=== PATIENT | male | born 1945 | race Caucasian/White ===

== ENCOUNTER 2016-10-28 10:17 | Emergency (ER) | payer OTHER, BC ==
[2016-10-28 10:24] VITALS: TEMP 98.5; BMI 30.7
[2016-10-28] MEDS ORDERED: ONDANSETRON 4 MG/2 ML VIAL IVPB ONE (11:22)
[2016-10-28] MEDS ORDERED: SODIUM CHLORIDE 500 ML IV STA (11:22)
[2016-10-28] MEDS ORDERED: ONDANSETRON 4 MG/2 ML VIAL ONE (11:44)
[2016-10-28 12:03] LABS: BASOPHIL 0.2 % (0-2.0); EOSINOPHIL 0.1 % (0-4.5); MCH 29.7 pg (25.7-33.7); MCHC 33.8 g/dl (32.0-35.9); MEAN CELL VOLUME 87.8 fl (80-96); MEAN PLT VOLUME 8.1 fl (7.5-11.1); NEUTROPHILS 95.2 % (42.8-82.8); PLATELET COUNT 161 K/MM3 (134-434); RDW 13.7 % (11.9-15.9); WHITE BLOOD COUNT 16.8 K/mm3 (4.0-10.0)
[2016-10-28 12:04] LABS: URINE APPEARANCE CLEAR; URINE BILIRUBIN NEGATIVE (NEGATIVE); URINE BLOOD NEGATIVE (NEGATIVE); URINE COLOR YELLOW; URINE GLUCOSE (UA) 3+ (NEGATIVE); URINE KETONE NEGATIVE (NEGATIVE); URINE LEUK ESTERASE NEGATIVE (NEGATIVE); URINE NITRITE NEGATIVE (NEGATIVE); URINE UROBILINOGEN NEGATIVE E.U./dl (0.2-1.0)
[2016-10-28 12:05] LABS: URINE PROTEIN 2+ (NEGATIVE)
[2016-10-28 12:08] LABS: URINE HYALINE CAST 4 /lpf; URINE MUCUS MANY; URINE RBC 3 /hpf (0-3); URINE WBC 5 /hpf (3-5)
--- NOTE | 2016-10-28 12:19 | PDOC ---
History of Present Illness <Talha Horan - Last Filed: 10/28/16 14:51> - General History Source: Patient Exam Limitations: No Limitations - History of Present Illness Initial Comments: 10/28/16 16:05 The patient is a 71 year old male with a significant past medical history of HTN and benign prostatic hyperplasia, who presents to the ER with several episodes of vomiting and diarrhea since yesterday. Patient states he ate [place] fish yesterday before he developed the symptoms. He reports his family ate the fish as well. Patient states he had 3-4 episodes of bilious vomiting, yellowish-green in color. He reports his stool is watery and brown in color. Patient states that he has pain in his right shoulder only when he vomits. He denies any shoulder pain in the past. On interview, patient reports feeling nausea. He states he sees a dye machine operator, Dr. Bush, for his hypokalemia. Patient states he uses CPAP while sleeping. Denies fever, chills, cough Denies sick contacts or recent travel Denies recent antibiotic use Denies melena, hematochezia Surgical Hx: Appendectomy PCP: Dr. Saavedra GI: Flaquita <Samanta Silva - Last Filed: 10/28/16 16:05> - General Chief Complaint: Vomiting/Diarrhea Stated Complaint: VOMITING, DIARRHEA Time Seen by Provider: 10/28/16 11:21 Past History - Past Medical History Anemia: No Asthma: No Cancer: No Cardiac Disorders: Yes (MVP) CVA: No COPD: No CHF: No Dementia: No Diabetes: No GI Disorders: Yes (DIVERTICUL;ITIS,DIVERTICULOSIS,HEMORRHOIDS) Disorders: No HTN: Yes Hypercholesterolemia: Yes Liver Disease: No Seizures: No Thyroid Disease: No - Surgical History Abdominal Surgery: No Appendectomy: Yes Cardiac Surgery: No Cholecystectomy: No Lung Surgery: No Neurologic Surgery: No Orthopedic Surgery: No - Psycho/Social/Smoking Cessation Hx Anxiety: No Suicidal Ideation: No Smoking History: Never smoked Have you smoked in the past 12 months: No Information on smoking cessation initiated: No Hx Alcohol Use: No Drug/Substance Use Hx: No Substance Use Type: None Hx Substance Use Treatment: No <Talha Horan - Last Filed: 10/28/16 14:51> <Samanta Silva - Last Filed: 10/28/16 16:05> - Past Medical History Allergies/Adverse Reactions: Allergies Allergy/AdvReac Type Severity Reaction Status Date / Time codeine [Codeine] Allergy Verified 10/28/16 10:24 Penicillins Allergy Verified 10/28/16 10:24 Home Medications: Ambulatory Orders Amlodipine Besylate [Norvasc -] 5 mg PO BID 12/20/12 Diltiazem [Cardizem -] 300 mg PO DAILY 12/20/12 Multivitamins [Multivit ([facility] Formulary)] 1 each PO DAILY 12/20/12 Potassium Chloride [K-Dur] 20 meq PO BID 12/20/12 Tamsulosin HCl 0.4 mg PO DAILY 12/20/12 Terazosin HCl 10 mg PO HS 12/20/12 Icosapent Ethyl [Vascepa] 0 gm PO DAILY 10/25/15 Ascorbate Calcium [Vitamin C] 500 mg PO DAILY 10/28/16 Aspirin [ASA -] 81 mg PO DAILY 10/28/16 Ondansetron HCl [Zofran] 4 mg PO QID PRN #24 tablet 10/28/16 Review of Systems - Review of Systems Able to Perform ROS?: Yes Comments:: 10/28/16 16:05 CONSTITUTIONAL: No reported: Fever, Chills, Diaphoresis, Generalized Weakness, Malaise, Loss of Appetite HEENT: No reported: Rhinorrhea, Nasal Congestion, Throat Pain, Throat Swelling, Difficulty Swallowing, Mouth Swelling, Ear Pain, Eye Pain, Visual Changes CARDIOVASCULAR: No reported: Chest Pain, Syncope, Palpitations, Irregular Heart Rate, Lightheadedness, Peripheral Edema RESPIRATORY: No reported: Cough, Shortness of Breath, SOB with Exertion, Orthopnea, Wheezing , Stridor, Hemoptysis GASTROINTESTINAL: Reported: Nausea, vomiting, diarrhea No reported: Abdominal pain, Abdominal Distension, Constipation, Melena, Hematochezia GENITOURINARY: No reported: Dysuria, Frequency, Urgency, Hesitancy, Flank Pain, Genital Pain MUSCULOSKELETAL: No reported: Myalgia, Arthralgia, Joint Swelling, Back pain, Neck Pain SKIN: No reported: Rash, Itching, Pallor HEMEATOLOGIC/IMMUNOLOGIC: No reported: Easy Bleeding, Easy Bruising, Lymphadenopathy, Frequent infections ENDOCRINE: No reported: Unexplained Weight Gain, Unexplained Weight Loss, Heat Intolerance , Cold Intolerance NEUROLOGIC: No reported: Headache, Focal Weakness, Paresthesias, Vertigo, Lightheadedness, Unsteady Gait, Seizure, Mental Status Changes, Incontinence PSYCHIATRIC: No reported: Anxiety, Depression <Uts,Samanta - Last Filed: 10/28/16 16:05> *Physical Exam - Vital Signs Last Vital Signs Temp Pulse Resp BP Pulse Ox 98.5 F 110 H 20 157/89 96 10/28/16 10:21 10/28/16 10:21 10/28/16 10:21 10/28/16 10:21 10/28/16 10:21 <Marline,Talha - Last Filed: 10/28/16 14:51> - Vital Signs Last Vital Signs Temp Pulse Resp BP Pulse Ox 98.5 F 104 H 17 161/89 96 10/28/16 10:21 10/28/16 14:41 10/28/16 14:41 10/28/16 14:41 10/28/16 14:41 - Physical Exam Comments: 10/28/16 16:05 GENERAL: The patient is awake, alert, and fully oriented, Nontoxic - in no acute distress. HEAD: Normocephalic, atraumatic. EYES: extraocular movements intact, sclera anicteric, conjunctiva clear. ENT: Normal voice, Moist mucous membranes. NECK: Normal range of motion, supple LUNGS: Breath sounds equal, clear to auscultation bilaterally. No wheezes, no rhonchi, no rales. HEART: Regular rate and rhythm, without murmur, rub or gallop. ABDOMEN: Distended. Soft, nontender, normoactive bowel sounds. No guarding, no rebound.No CVA tenderness EXTREMITIES: Normal range of motion, no edema. No clubbing or cyanosis. No cords, erythema, or tenderness. NEUROLOGICAL: No facial assymetry, Normal speech, PSYCH: Normal mood, normal affect. SKIN: Warm, Dry, normal turgor <Uts,Samanta - Last Filed: 10/28/16 16:05> Heart Score/ECG Review - ECG Impressions Comment:: 10/28/16 12:18 Twelve-lead EKG was performed and reviewed by me. There is normal sinus rhythm with a rate of 105 Right bundle-branch block No ST changes suggestive of acute ischemia No recent EKGs for comparison <MarlineTalha - Last Filed: 10/28/16 14:51> ED Treatment Course - LABORATORY CBC & Chemistry Diagram: 10/28/16 11:12 10/28/16 11:12 - ADDITIONAL ORDERS Additional order review: Laboratory Results 10/28/16 11:12 Urine Color Yellow Urine Appearance Clear Urine pH 6.0 Ur Specific [place] 1.022 Urine Protein 2+ H Urine Glucose (UA) 3+ H Urine Ketones Negative Urine Blood Negative Urine Nitrite Negative Urine Bilirubin Negative Urine Urobilinogen Negative Ur Leukocyte Esterase Negative 10/28/16 11:12 RBC 4.95 MCV 87.8 MCHC 33.8 RDW 13.7 D MPV 8.1 Neutrophils % 95.2 H Lymphocytes % 1.9 L D Monocytes % 2.6 L Eosinophils % 0.1 D Basophils % 0.2 - Medications Given in the ED: ED Medications Discontinued Medications Generic Name Dose Route Start Last Admin Trade Name Freq PRN Reason Stop Dose Admin Ondansetron HCl 4 mg 10/28/16 11:22 10/28/16 11:53 Zofran Injection IVPB 10/28/16 11:23 4 mg ONCE ONE Administration <Talha Horan - Last Filed: 10/28/16 14:51> - LABORATORY CBC & Chemistry Diagram: 10/28/16 11:12 10/28/16 11:12 - ADDITIONAL ORDERS Additional order review: Laboratory Results 10/28/16 10/28/16 11:12 11:12 Sodium 141 Potassium 4.1 Chloride 102 Carbon Dioxide 31 Anion Gap 8 BUN 22 H D Creatinine 1.3 Creat Clearance w eGFR 54.26 Random Glucose 188 H D Calcium 8.7 Magnesium 1.7 L Total Bilirubin 0.5 AST 16 ALT 38 Alkaline Phosphatase 62 Total Protein 7.7 Albumin 4.1 Urine Color Yellow Urine Appearance Clear Urine pH 6.0 Ur Specific [place] 1.022 Urine Protein 2+ H Urine Glucose (UA) 3+ H Urine Ketones Negative Urine Blood Negative Urine Nitrite Negative Urine Bilirubin Negative Urine Urobilinogen Negative Ur Leukocyte Esterase Negative Urine RBC 3 Urine WBC 5 Ur Epithelial Cells Rare Hyaline Casts 4 Urine Mucus Many 10/28/16 11:12 RBC 4.95 MCV 87.8 MCHC 33.8 RDW 13.7 D MPV 8.1 Neutrophils % 95.2 H Lymphocytes % 1.9 L D Monocytes % 2.6 L Eosinophils % 0.1 D Basophils % 0.2 - Medications Given in the ED: ED Medications Discontinued Medications Generic Name Dose Route Start Last Admin Trade Name Aurelia PRN Reason Stop Dose Admin Sodium Chloride 500 mls @ 500 mls/hr 10/28/16 11:22 10/28/16 11:53 Normal Saline - IV 10/28/16 12:21 500 mls/hr ASDIR STA Administration Ondansetron HCl 4 mg 10/28/16 11:22 10/28/16 11:53 Zofran Injection IVPB 10/28/16 11:23 4 mg ONCE ONE Administration <Uts,Samanta - Last Filed: 10/28/16 16:05> Medical Decision Making - Medical Decision Making 10/28/16 12:15 71y M hx of htn, bph presents with complaint of intermittent/vomiting and diarrhea since 4am, pt does endorse mild abd pain and r shoulder pain only with vomiting. pt denies any associated cp, diaphoresis, sob, recent exertional symptoms. pts exam reveals a distended abd that is nontender, nontympanitic (is normal for him per the patient), neg murphies sign, no tenderness at mcburnesy point. likely acute gastroenteritis, but also consider possible gb pathology, acs will ck labs, ekg, will treat the pt symptomatically with zofran, fluids will reassess A portion of this note was documented by scribe services under my direction. I have reviewed the details of the note, within reason, and agree with the documentation with the following case summary and management plan written by me 10/28/16 13:32 pts labs reviewed cbc noted for elevated wbc with left shift cmp noted pt was reassessed and pt asking when he can go home. denies any abd pain/nausea. i reassesed the pts abdomen and there is no tenderness appreciated. considered possible infectious cause due to his marked left shift, however without any tenderness or pain - will continue to reassess and PO challange the patient. if +pain/tendeness or vomiting, will consider imaging. 10/28/16 14:35 pts tolerated oral intake abd was reassesd and is soft nontender. will defer imaging. likely stress response from his infection. will d/c the pt with pmd fu will give pt some zofran - strict return precautions were discussed I discussed the physical exam findings, ancillary test results and final diagnoses with the patient. I answered all of the patient's questions. The patient was satisfied with the care received and felt comfortable with the discharge plan and treatment plan. The patient will call their primary care physician within 24 hours to arrange follow-up and will return to the Emergency Department with any new, persistent or worsening symptoms. <Talha Horan - Last Filed: 10/28/16 14:51> *DC/Admit/Observation/Transfer - Discharge Dispostion Admit: No <Talha Horan - Last Filed: 10/28/16 14:51> - Attestations Scribe Attestion: 10/28/16 16:05 Documentation prepared by Samanta Silva, acting as medical biller/coder for Talha Horan MD. <Samanta Silva - Last Filed: 10/28/16 16:05> Diagnosis at time of Disposition: Vomiting and diarrhea - Discharge Dispostion Disposition: HOME Condition at time of disposition: Improved - Prescriptions Prescriptions: Ondansetron HCl [Zofran] 4 mg PO QID PRN #24 tablet PRN Reason: Nausea - Referrals Referrals: Michael Saavedra MD [Primary Care Provider] - Douglas Sams MD [Staff Physician] - - Patient Instructions Printed Discharge Instructions: DI for Vomiting -- Adult Additional Instructions: Return to the emergency department immediately with ANY new, persistent or worsening symptoms including worsening abdominal pain, fevers, inability to tolerate oral intake, chest pain, shortness of breath or any other concerns. Stay well hydrated. You MUST call and follow up with your doctor tomorrow. Please make sure your doctor reviews the results of your emergency evaluation. Clear liquids only for the next 6 hours.. After that if you have had no further vomiting you may have bananas, rice, applesauce, or toast. If no further vomiting for another 8 hours you may have regular food. If you vomit again then nothing to eat or drink for 2 hours. Take one of the ondansatrone. then start back with the clear liquids. Return to the emergency department immediately with ANY new, persistent or worsening symptoms. You MUST call and follow up with your doctor tomorrow if not better. Please make sure your doctor reviews the results of your emergency evaluation. Print Language: KYRGYZ
[2016-10-28 12:32] LABS: ALBUMIN 4.1 g/dl (3.4-5.0); BILIRUBIN,TOTAL 0.5 mg/dL (0.2-1.0); CALCIUM 8.7 mg/dL (8.5-10.1); CREATININE 1.3 mg/dL (0.7-1.3); MAGNESIUM 1.7 mg/dL (1.8-2.4); TOT PROT 7.7 g/dl (6.4-8.2)
--- NOTE | 2016-10-28 14:36 | EKG ---
Test Reason : Blood Pressure : / mmHG Vent. Rate : 105 BPM Atrial Rate : 105 BPM P-R Int : 166 ms QRS Dur : 132 ms QT Int : 366 ms P-R-T Axes : 065 -25 012 degrees QTc Int : 483 ms SINUS TACHYCARDIA RIGHT BUNDLE BRANCH BLOCK ABNORMAL ECG WHEN COMPARED WITH ECG OF 27-JUN-1999 09:51, VENT. RATE HAS INCREASED BY 35 BPM RIGHT BUNDLE BRANCH BLOCK IS NOW PRESENT MINIMAL CRITERIA FOR INFERIOR INFARCT ARE NO LONGER PRESENT Confirmed by JUAN C YADAV MD ([id number]) on 10/28/2016 2:36:13 PM Referred By: Confirmed By:JUAN C YADAV MD
[2016-10-28 14:42] VITALS: BP 161/89; PULSE 104
== END 2016-10-28 15:09 | disposition home or self-care (01) ==
LOC: JER 10:17
PROC: 3E033GC Introduction of Other Therapeutic Substance into Peripheral Vein, Percutaneous Approach (ICD-10-PCS; principal; 2016-10-28)
DX: K52.9 Noninfective gastroenteritis and colitis, unspecified (principal); I10 Essential (primary) hypertension; E78.00 Pure hypercholesterolemia, unspecified; I34.1 Nonrheumatic mitral (valve) prolapse; N40.0 Benign prostatic hyperplasia without lower urinary tract symptoms
CPT/HCPCS: 36415; 80053; 81003; 81015; 83735; 85025; 93005; 93010; 96374; 99284-25

== ENCOUNTER 2017-10-09 11:18 | Emergency (ER) | payer OTHER, BC ==
[2017-10-09 11:31] VITALS: BP 131/75; PULSE 81; TEMP 98.1; BMI 30.4
--- NOTE | 2017-10-09 12:01 | PDOC ---
History of Present Illness - General Chief Complaint: Pain Stated Complaint: LOW BACK, RT BUTTOCK, LEG PAIN Time Seen by Provider: 10/09/17 11:34 - History of Present Illness Initial Comments: 10/09/17 14:36 Chief complaint low back pain History of present illness: 71 years old past medical history significant for hypertension and BPH presents to the ED with several day history of right sided low back discomfort radiating to his right knee. No history of direct trauma. No fever. No recent injections. No weight loss. No bowel or bladder incontinence. No weakness. Patient describes sharp pain which radiates from his right buttock down to his left leg worse when sitting for prolonged periods of time worse when initiating standing. Alleviated somewhat by walking. Pain is intermittent with the aforementioned exacerbating factors. Constant in severity but worsened by movement and alleviated by rest and walking. No associated weakness numbness bowel or bladder incontinence Past History - Past Medical History Allergies/Adverse Reactions: Allergies Allergy/AdvReac Type Severity Reaction Status Date / Time codeine [Codeine] Allergy Verified 10/09/17 11:23 Penicillins Allergy Verified 10/09/17 11:23 Home Medications: Ambulatory Orders Diltiazem [Cardizem -] 300 mg PO DAILY 12/20/12 Multivitamins [Multivit ([facility] Formulary)] 1 each PO DAILY 12/20/12 Potassium Chloride [K-Dur] 20 meq PO BID 12/20/12 Tamsulosin HCl 0.4 mg PO DAILY 12/20/12 Terazosin HCl 10 mg PO HS 12/20/12 Icosapent Ethyl [Vascepa] 2 cap PO DAILY 10/25/15 Aspirin [ASA -] 81 mg PO DAILY 10/28/16 Amiloride HCl 5 mg PO BID 10/09/17 Atorvastatin Ca [Lipitor] 10 mg PO HS 10/09/17 Tramadol HCl 50 mg PO TID #9 tablet MDD 3 10/09/17 Anemia: No Asthma: No Cancer: No Cardiac Disorders: Yes (MVP) CVA: No COPD: No CHF: No Dementia: No Diabetes: No GI Disorders: Yes (DIVERTICUL;ITIS,DIVERTICULOSIS,HEMORRHOIDS) Disorders: No HTN: Yes Hypercholesterolemia: Yes Liver Disease: No Seizures: No Thyroid Disease: No - Surgical History Abdominal Surgery: No Appendectomy: Yes Cardiac Surgery: No Cholecystectomy: No Lung Surgery: No Neurologic Surgery: No Orthopedic Surgery: No - Suicide/Smoking/Psychosocial Hx Smoking History: Never smoked Have you smoked in the past 12 months: No Hx Alcohol Use: No Drug/Substance Use Hx: No Substance Use Type: None Hx Substance Use Treatment: No Review of Systems - Review of Systems Comments:: 10/09/17 14:37 ROS: A complete review of 10 out of 10 review of systems is taken and is negative apart from what is previously mentioned below and in the HPI. *Physical Exam - Vital Signs Last Vital Signs Temp Pulse Resp BP Pulse Ox 98.1 F 81 18 131/75 100 10/09/17 11:18 10/09/17 11:18 10/09/17 11:18 10/09/17 11:18 10/09/17 11:18 - Physical Exam Comments: 10/09/17 14:37 Vitals: Triage Vital signs reviewed General Appearance: no acute distress, well nourished well developed, Head: Atraumatic, Eyes: Pupils equal reactive round, extraocular movement intact Ears: TM's normal bilaterally; Nose: Nares patent bilaterally;no nasal congestion Throat: Posterior oropharynx without erythema, mucous membranes moist, Neck: Supple;No Nucal rigidity Chest Wall: Nontender Cardiac: Regular rate and rhythym, no murmurs, no rubs, no gallops, Lungs: Clear to auscultation bilateral, good air movement bilaterally, Abdomen: Soft, non distended, normal bowel sounds, [non tender Musculoskeletal: Paraspinal right sided lower back tenderness to palpation., Pain with leg crusting, pain with straight leg raise. Extremities: Full range of motion to all extremities, no cyanosis, clubbing, or edema Skin: Warm and dry, no rashes or lesions, no rash, no petechiae Neuro: AOX3; Cranial Nerves 2-12 grossly intact, Strength intact to all extremities, Sensation intact to all extremities,gait normal Psych: normal mood, normal affect Heart Score/ECG Review - History History: Highly suspicious Medical Decision Making - Medical Decision Making 10/09/17 14:45 71 years old history examination consistent with sciatica. No red flags in patient's back pain history normal neurologic exam no fever no incontinence Sepsis was pain medication patient now comfortably ambulating around the emergency department. He has follow-up tomorrow with his primary care provider. I will provide the patient with a short course of Motrin and tramadol. I also provided the patient with spine surgery follow-up Findings, the need for follow-up, strict return instructions discussed with family. *DC/Admit/Observation/Transfer Diagnosis at time of Disposition: Sciatica Qualifiers: Laterality: right Qualified Code(s): M54.31 - Sciatica, right side - Discharge Dispostion Condition at time of disposition: Stable Admit: No - Referrals Referrals: Poncho Poole MD [Staff Physician] - - Patient Instructions Printed Discharge Instructions: Sciatica, DI for Back Pain With Sciatica Additional Instructions: Take [id number] Motrin as directed on package. Tramadol as prescribed for more severe pain. Follow-up with your doctor tomorrow as scheduled and with orthopedics within 1 week Return to the emergency department immediately for any fever severe worsening back pain weakness numbness bowel or bladder incontinence or for any concerns. - Post Discharge Activity
[2017-10-09] MEDS ORDERED: traMADol HCL 50 MG TABLET PO ONE (12:17)
[2017-10-09] MEDS ORDERED: IBUPROFEN 400 MG TABLET (FP) PO ONE ×2 (12:17→12:25)
[2017-10-09] MEDS ORDERED: traMADol HCL 50 MG TABLET ONE (12:28)
== END 2017-10-09 14:59 | disposition home or self-care (01) ==
LOC: FER 11:18
DX: M54.31 Sciatica, right side (principal); I10 Essential (primary) hypertension; N40.0 Benign prostatic hyperplasia without lower urinary tract symptoms; E78.00 Pure hypercholesterolemia, unspecified; I34.1 Nonrheumatic mitral (valve) prolapse; Z88.0 Allergy status to penicillin; Z88.5 Allergy status to narcotic agent; Z79.82 Long term (current) use of aspirin
CPT/HCPCS: 72100-TC-FY; 99282-25

== ENCOUNTER 2017-10-14 21:55 | Emergency (ER) | payer OTHER, BC ==
[2017-10-14 22:32] VITALS: BP 156/62; PULSE 77; TEMP 99; BMI 29.2
--- NOTE | 2017-10-15 00:19 | PDOC ---
History of Present Illness <Zuly Real - Last Filed: 10/15/17 01:07> - General History Source: Patient Exam Limitations: No Limitations - History of Present Illness Initial Comments: 10/15/17 01:42 The patient is a 71 year old male, with a significant past medical history of HTN, HLD, MVP, Diverticulosis, BPH, Sleep Apnea who presents to the emergency department with R groin rash. Two weeks ago, patient had bronchitis and was prescribed Prednisone. Patient was tapered off of steroids however began to developed pain and numbness to R leg. Patient was later prescribed Tramadol with no relief. Last night, patient noticed sudden skin rash from R groin to R thigh area and presents to the ED for further evaluation. Patient denies chest pain, headache or dizziness. Patient denies fever, chills, abdominal pain, nausea, vomit, diarrhea or constipation. Patient denies dysuria, frequency, urgency or hematuria. Patient denies sick contacts or recent travel. Allergies: Codeine, Penicillins Past surgical history: Appendectomy Social history: None PCP: Dr. Arriaga <Taty Sr - Last Filed: 10/15/17 01:43> - General Chief Complaint: Rash Stated Complaint: ALLERGIC REACTION Time Seen by Provider: 10/15/17 00:15 Past History - Past Medical History Anemia: No Asthma: No Cancer: No Cardiac Disorders: Yes (MVP) CVA: No COPD: No CHF: No DVT: No Dementia: No Diabetes: No GI Disorders: Yes (DIVERTICUL;ITIS,DIVERTICULOSIS,HEMORRHOIDS) Disorders: No HTN: Yes Hypercholesterolemia: Yes Liver Disease: No Seizures: No Thyroid Disease: No Other medical history: sleep apnea w/ cpap machine - Surgical History Abdominal Surgery: No Appendectomy: Yes Cardiac Surgery: No Cholecystectomy: No Lung Surgery: No Neurologic Surgery: No Orthopedic Surgery: No - Suicide/Smoking/Psychosocial Hx Smoking History: Never smoked Have you smoked in the past 12 months: No Information on smoking cessation initiated: No Hx Alcohol Use: No Drug/Substance Use Hx: No Substance Use Type: None Hx Substance Use Treatment: No <Zuly Real - Last Filed: 10/15/17 01:07> <Taty Sr - Last Filed: 10/15/17 01:43> - Past Medical History Allergies/Adverse Reactions: Allergies Allergy/AdvReac Type Severity Reaction Status Date / Time codeine [Codeine] Allergy Verified 10/09/17 11:23 Penicillins Allergy Verified 10/09/17 11:23 Home Medications: Ambulatory Orders Diltiazem [Cardizem -] 300 mg PO DAILY 12/20/12 Multivitamins [Multivit ([facility] Formulary)] 1 each PO DAILY 12/20/12 Potassium Chloride [K-Dur] 20 meq PO BID 12/20/12 Tamsulosin HCl 0.4 mg PO DAILY 12/20/12 Terazosin HCl 10 mg PO HS 12/20/12 Icosapent Ethyl [Vascepa] 2 cap PO DAILY 10/25/15 Aspirin [ASA -] 81 mg PO DAILY 10/28/16 Amiloride HCl 5 mg PO BID 10/09/17 Atorvastatin Ca [Lipitor] 10 mg PO HS 10/09/17 Tramadol HCl 50 mg PO TID #9 tablet MDD 3 10/09/17 Ondansetron [Zofran Odt -] 4 mg SL TID PRN #21 od.tablet 10/15/17 Valacyclovir HCl [Valtrex -] 1,000 mg PO TID #21 tablet 10/15/17 Review of Systems - Review of Systems Able to Perform ROS?: Yes Comments:: 10/15/17 01:43 GENERAL/CONSTITUTIONAL: No fever or chills. No weakness. HEAD, EYES, EARS, NOSE AND THROAT: No change in vision. No ear pain or discharge. No sore throat. GASTROINTESTINAL: No nausea, vomiting, diarrhea or constipation. GENITOURINARY: No dysuria, frequency, or change in urination. CARDIOVASCULAR: No chest pain or shortness of breath. RESPIRATORY: No cough, wheezing, or hemoptysis. MUSCULOSKELETAL: No joint or muscle swelling or pain. No neck or back pain. SKIN: +R thigh and R groin rash NEUROLOGIC: No headache, vertigo, loss of consciousness, or change in strength/ sensation. ENDOCRINE: No increased thirst. No abnormal weight change. HEMATOLOGIC/LYMPHATIC: No anemia, easy bleeding, or history of blood clots. ALLERGIC/IMMUNOLOGIC: No hives or skin allergy. <Taty Sr - Last Filed: 10/15/17 01:43> *Physical Exam - Vital Signs Last Vital Signs Temp Pulse Resp BP Pulse Ox 99 F 77 20 156/62 97 10/14/17 22:30 10/14/17 22:30 10/14/17 22:30 10/14/17 22:30 10/14/17 22:30 - Physical Exam Comments: GENERAL: Awake, alert, and fully oriented, in no acute distress HEAD: No signs of trauma EYES: PERRLA, EOMI, sclera anicteric, conjunctiva clear ENT: Auricles normal inspection, hearing grossly normal, nares patent, oropharynx clear without exudates. Moist mucosa NECK: Normal ROM, supple, no lymphadenopathy, JVD, or masses LUNGS: Breath sounds equal, clear to auscultation bilaterally. No wheezes, and no crackles HEART: Regular rate and rhythm, normal S1 and S2, no murmurs, rubs or gallops ABDOMEN: Soft, nontender, normoactive bowel sounds. No guarding, no rebound. No masses EXTREMITIES: Normal range of motion, no edema. No clubbing or cyanosis. No cords, erythema, or tenderness NEUROLOGICAL: Cranial nerves II through XII grossly intact. Normal speech, normal gait SKIN: Warm, Dry, normal turgor. +Vesicular rash to RLE in dermatomal distribution involving 2 dermatomes. <Zuly Real - Last Filed: 10/15/17 01:07> - Vital Signs Last Vital Signs Temp Pulse Resp BP Pulse Ox 99 F 77 20 156/62 97 10/14/17 22:30 10/14/17 22:30 10/14/17 22:30 10/14/17 22:30 10/14/17 22:30 <Taty Sr - Last Filed: 10/15/17 01:43> *DC/Admit/Observation/Transfer - Discharge Dispostion Admit: No <Zuly Real - Last Filed: 10/15/17 01:07> - Attestations Scribe Attestion: 10/15/17 01:43 Documentation prepared by Taty Sr, acting as medical equipment technician for Zuly Real MD <Taty Sr - Last Filed: 10/15/17 01:43> Diagnosis at time of Disposition: Shingles Qualifiers: Herpes zoster complications: without complications Qualified Code(s): B02.9 - Zoster without complications - Discharge Dispostion Disposition: HOME Condition at time of disposition: Stable - Prescriptions Prescriptions: Ondansetron [Zofran Odt -] 4 mg SL TID PRN #21 od.tablet PRN Reason: Nausea And/Or Vomiting Valacyclovir HCl [Valtrex -] 1,000 mg PO TID #21 tablet - Referrals Referrals: Victorino Alves MD [Staff Physician] - Poncho Poole MD [Staff Physician] - - Patient Instructions Printed Discharge Instructions: DI for Shingles Additional Instructions: Follow up with either Dr. Poole or Dr. Alves for the numbness. Follow up with your primary care physician in 2-3 days for the shingles. Keep the rash covered when you are out in public and do not allow children or women to touch the area until the lesions are completely healed. - Post Discharge Activity
== END 2017-10-15 02:36 | disposition home or self-care (01) ==
LOC: JER 21:55
DX: B02.9 Zoster without complications (principal); I10 Essential (primary) hypertension; E78.00 Pure hypercholesterolemia, unspecified; N40.0 Benign prostatic hyperplasia without lower urinary tract symptoms; Z87.19 Personal history of other diseases of the digestive system
CPT/HCPCS: 99281-25

== ENCOUNTER 2017-10-26 14:13 | Emergency (ER) | payer OTHER, BC ==
[2017-10-26 14:43] VITALS: BP 186/76; PULSE 73; TEMP 98.5; BMI 29.2
--- NOTE | 2017-10-26 15:25 | PDOC ---
History of Present Illness - General History Source: Patient Exam Limitations: No Limitations <Talha Hroan - Last Filed: 10/26/17 15:26> - General History Source: Patient Exam Limitations: No Limitations - History of Present Illness Initial Comments: 10/26/17 16:09 The patient is a 71 year old male, with a significant past medical history of hypertension, hyperlipidemia, mitral valve prolapse, diverticulitis, hemorrhoids , BPH, and sleep apnea(on CPap at home), who presents to the emergency department with right lower back/hip/thigh numbness and pain. Patient describes his pain as a numbing/burning sensation. Patient reports he was recently at [facility] on 10/15/17, with similar symptoms, where he was diagnosed with Shingles. Patient reports he was started on Valtrex and Tramadol for his symptoms, with relief of rash, but not the pain. Today, patient reports coming to the ED out of concern of minimal pain improvement, and numbness from the anterior aspect of the right thigh radiating down to the right knee. Patient reports following up with Ortho, Dr. Poole, where an MRI of the lumbar spine was ordered. Per records, the MRI was notable for L4-L5 mild left lateral disc bulge probably slightly impinging far lateral left L4 nerve root. Moderate bilateral facet hypertrophy. L5-S1 minimal left lateral disc bulge reaching left L5 nerve root without gross nerve root impingement. Moderate bilateral facet hypertrophy. Patient endorses heavy lifting about 1 month ago, but states his symptoms only began about 1 week before his shingles. Patient denies any recent fever, chills, cough, headache, or dizziness. He denies any leg or back trauma. He denies any abdominal pain, nausea, or vomiting. He denies any chest pain or shortness of breath. He denies any recent travel or sick contacts. Pt denies any urinary or bowel incontinence. Allergies: Codeine, Penicillins Past Surgical History: Appendectomy Social History: Non smoker. No ETOH or recreational drug use. Orthopedist: Dr. Poole (Scheduled for follow-up on 10/31/17) PCP: Dr. Green (Scheduled for visit on 11/05/17) <Daron Pacheco - Last Filed: 10/26/17 16:11> - General Chief Complaint: Pain Stated Complaint: RIGHT THIGH NUMBNESS & PAIN Time Seen by Provider: 10/26/17 14:18 Past History - Past Medical History Anemia: No Asthma: No Cancer: No Cardiac Disorders: Yes (MVP) CVA: No COPD: No CHF: No DVT: No Dementia: No Diabetes: No GI Disorders: Yes (DIVERTICULITIS,DIVERTICULOSIS,HEMORRHOIDS) Disorders: No HTN: Yes Hypercholesterolemia: Yes Liver Disease: No Seizures: No Thyroid Disease: No Other medical history: BACK PAIN WITH RIGHT LEG NUMBNESS - Surgical History Abdominal Surgery: No Appendectomy: Yes Cardiac Surgery: No Cholecystectomy: No Lung Surgery: No Neurologic Surgery: No Orthopedic Surgery: No - Suicide/Smoking/Psychosocial Hx Smoking History: Never smoked Have you smoked in the past 12 months: No Hx Alcohol Use: No Drug/Substance Use Hx: No Substance Use Type: None Hx Substance Use Treatment: No <Talha Horan - Last Filed: 10/26/17 15:26> <Daron Pacheco - Last Filed: 10/26/17 16:11> - Past Medical History Allergies/Adverse Reactions: Allergies Allergy/AdvReac Type Severity Reaction Status Date / Time codeine [Codeine] Allergy Verified 10/26/17 14:27 Penicillins Allergy Verified 10/26/17 14:27 Home Medications: Ambulatory Orders Diltiazem [Cardizem -] 300 mg PO DAILY 12/20/12 Multivitamins [Multivit ([facility] Formulary)] 1 each PO DAILY 12/20/12 Potassium Chloride [K-Dur] 20 meq PO BID 12/20/12 Tamsulosin HCl 0.4 mg PO HS 12/20/12 Terazosin HCl 10 mg PO HS 12/20/12 Aspirin [ASA -] 81 mg PO DAILY 10/28/16 Amiloride HCl 5 mg PO BID 10/09/17 Atorvastatin Ca [Lipitor] 10 mg PO DAILY 10/09/17 Meloxicam [Mobic] 7.5 mg PO BID 10/26/17 Oxycodone HCl/Acetaminophen [Percocet 5-325 mg Tablet -] 1 combo PO Q6H PRN #15 tablet MDD 4 10/26/17 Review of Systems - Review of Systems Able to Perform ROS?: Yes Comments:: 10/26/17 16:10 CONSTITUTIONAL: No reported: Fever, Chills, Diaphoresis, Generalized Weakness, Malaise, Loss of Appetite HEENT: No reported: Rhinorrhea, Nasal Congestion, Throat Pain, Throat Swelling, Difficulty Swallowing, Mouth Swelling, Ear Pain, Eye Pain, Visual Changes CARDIOVASCULAR: No reported: Chest Pain, Syncope, Palpitations, Irregular Heart Rate, Lightheadedness, Peripheral Edema RESPIRATORY: No reported: Cough, Shortness of Breath, SOB with Exertion, Orthopnea, Wheezing , Stridor, Hemoptysis GASTROINTESTINAL: No reported: Abdominal pain, Abdominal Distension, Nausea, Vomiting, Diarrhea, Constipation, Melena, Hematochezia GENITOURINARY: No reported: Dysuria, Frequency, Urgency, Hesitancy, Flank Pain, Genital Pain MUSCULOSKELETAL: Reported: Right lower back/hip/knee pain, right thigh numbness No reported: Myalgia, Arthralgia, Joint Swelling, Back pain, Neck Pain SKIN: Reported: Right thigh/groin rash and itching No reported: Pallor NEUROLOGIC: No reported: Headache, Focal Weakness, Vertigo, Lightheadedness, Unsteady Gait, Seizure, Mental Status Changes, Incontinence <Daron Pacheco - Last Filed: 10/26/17 16:11> *Physical Exam - Vital Signs Last Vital Signs Temp Pulse Resp BP Pulse Ox 98.5 F 73 17 186/76 97 10/26/17 14:15 10/26/17 14:15 10/26/17 14:15 10/26/17 14:15 10/26/17 14:15 <Talha Horan - Last Filed: 10/26/17 15:26> - Vital Signs Last Vital Signs Temp Pulse Resp BP Pulse Ox 98.5 F 73 17 186/76 97 10/26/17 14:15 10/26/17 14:15 10/26/17 14:15 10/26/17 14:15 10/26/17 14:15 - Physical Exam Comments: 10/26/17 16:10 GENERAL: The patient is awake, alert, and fully oriented, Nontoxic - in no acute distress. ABDOMEN: Soft, nontender, normoactive bowel sounds. No guarding, no rebound. . No CVA tenderness NEUROLOGICAL: No facial assymetry, Normal speech, SKIN: Warm, Dry, normal turgor, vesicular rash noted along L 4 distribution, no erythema/induration discharge. <Daron Pacheco - Last Filed: 10/26/17 16:11> ED Treatment Course - Medications Given in the ED: ED Medications Discontinued Medications Generic Name Dose Route Start Last Admin Trade Name Aurelia PRN Reason Stop Dose Admin Oxycodone/Acetaminophen 1 combo 10/26/17 15:26 10/26/17 15:45 Percocet 5/325 - PO 10/26/17 15:27 1 combo ONCE ONE Administration <Daron Pacheco - Last Filed: 10/26/17 16:11> Medical Decision Making - Medical Decision Making 10/26/17 15:26 71y M hx of HTN, HL< MVP, diverticulosis, bph, sleep anea presents with R groin numnbess/pain for a few weeks. Pt was origianlly dx with sciatica at onset of pain, then developed a rash and was treated for shingles. He was referred to Dr. Poole for evaluation of the numbness, and had an MRI taht showed mild L 4 nerve impingement. pt presented today due to the persistent pain. suspect the pts pain is neuropathic pain due to his zoster. will give pt a percocet no signs of infection will dc him with perocet and pmd fu return precautions were discussed I discussed the physical exam findings, ancillary test results and final diagnoses with the patient. I answered all of the patient's questions. The patient was satisfied with the care received and felt comfortable with the discharge plan and treatment plan. The patient will call their primary care physician within 24 hours to arrange follow-up and will return to the Emergency Department with any new, persistent or worsening symptoms. <Talha Horan - Last Filed: 10/26/17 15:26> *DC/Admit/Observation/Transfer - Discharge Dispostion Admit: No <Talha Horan - Last Filed: 10/26/17 15:26> - Attestations Scribe Attestion: 10/26/17 16:10 Documentation prepared by Daron Pacheco, acting as medical front desk specialist for Talha Horan MD. <Daron Pacheco - Last Filed: 10/26/17 16:11> Diagnosis at time of Disposition: Shingles Qualifiers: Herpes zoster complications: without complications Qualified Code(s): B02.9 - Zoster without complications - Discharge Dispostion Disposition: HOME Condition at time of disposition: Good - Prescriptions Prescriptions: Oxycodone HCl/Acetaminophen [Percocet 5-325 mg Tablet -] 1 combo PO Q6H PRN #15 tablet MDD 4 PRN Reason: Pain - Referrals Referrals: Sebastian Arriaga MD [Primary Care Provider] - - Patient Instructions Printed Discharge Instructions: DI for Shingles Additional Instructions: Return to the emergency department immediately with ANY new, persistent or worsening symptoms including any increased redness, fevers, chills, drainage from your rash. I suspect that you're pain is due to your zoster. Take the Percocet as needed for pain. Keep your rash clean and dry to minimize chance of infection. You MUST call and follow up with your doctor in 3-4 days for further evaluation of your symptoms. Results were discussed with you. Please make sure your doctor reviews the results of your emergency evaluation. - Post Discharge Activity
== END 2017-10-26 16:42 | disposition home or self-care (01) ==
LOC: FER 14:13
DX: B02.9 Zoster without complications (principal); I10 Essential (primary) hypertension; E78.00 Pure hypercholesterolemia, unspecified; I34.1 Nonrheumatic mitral (valve) prolapse
CPT/HCPCS: 99282-25

== ENCOUNTER 2018-02-13 06:52 | Day surgery (SDC) | payer OTHER, BC ==
[2018-02-12 14:33] VITALS: BMI 31.7
[2018-02-13] MEDS ORDERED: PROPOFOL 20 ML ONE ×4 (07:37)
[2018-02-13] MEDS ORDERED: LIDOCAINE HCL 2% (20ML MULTI-DOSE VIAL) NR ONE (07:37)
[2018-02-13] MEDS ORDERED: ePHEDrine SULFATE 50 MG/1 ML AMPULE ONE (07:38)
[2018-02-13] MEDS ORDERED: SUCCINYLCHOLINE CHLORIDE 200 MG/10 ML VIAL ONE (07:38)
[2018-02-13 08:27] VITALS: TEMP 97.8
[2018-02-13 15:14] VITALS: BP 160/72; PULSE 80
--- NOTE | 2018-02-14 17:46 | PATH ---
Surgical Pathology Report Patient Name: LUIS DANIEL MCDONALD [facility]. Rec. #: [id number] /Age/Gender: 1945 (Age: 72) / M Account: [id number] Location: [facility]SU-ENDOSCOPY Taken: 02/13/2018 Received: 02/13/2018 Reported: 02/14/2018 Physicians: Douglas Sams M.D. Specimen(s) Received A: BX PROXIMAL TRANSVERSE COLON POLYP B: BX DISTAL TRANSVERSE COLON POLYP Clinical History History of colon polyps, screening Postop diagnosis: Colon polyps, diverticulosis, hemorrhoids Final Diagnosis A. PROXIMAL TRANSVERSE COLON POLYP, POLYPECTOMY: TUBULAR ADENOMA. B. DISTAL TRANSVERSE COLON POLYP, BIOPSY: POLYPOID COLONIC MUCOSA WITH LYMPHOID AGGREGATE. Electronically Signed Shantel Staley M.D. Gross Description A. Received in formalin, labeled "proximal transverse colon polyp" are 2 nolasco, irregular portions of soft tissue measuring 0.4 and 0.5 cm. in greatest dimension. The specimens are submitted in toto in one cassette. B. Received in formalin, labeled "distal transverse biopsy polyp" are 2 nolasco, irregular portions of soft tissue averaging 0.2 cm. in greatest dimension. The specimens are submitted in toto in one cassette. DL/02/13/2018 saudi02/13/2018
== END 2018-02-13 10:45 | disposition home or self-care (01) ==
LOC: JASU-ENDO 06:52
PROVIDERS: ATTEND Internal Medicine Gastroenterology
PROC: 0DBL8ZX Excision of Transverse Colon, Via Natural or Artificial Opening Endoscopic, Diagnostic (ICD-10-PCS; principal; 2018-02-13 08:00)
DX: Z12.11 Encounter for screening for malignant neoplasm of colon (principal); Z80.0 Family history of malignant neoplasm of digestive organs; D12.3 Benign neoplasm of transverse colon; K64.8 Other hemorrhoids; K57.30 Diverticulosis of large intestine without perforation or abscess without bleeding
CPT/HCPCS: 88305-TC

== ENCOUNTER 2018-05-18 01:05 | Inpatient (IN) | payer OTHER, BC ==
--- NOTE | 2018-05-18 01:08 | PDOC ---
History of Present Illness - General Chief Complaint: Chest Pain Stated Complaint: CHEST TIGHTNESS Time Seen by Provider: 05/18/18 01:07 - History of Present Illness Initial Comments: 05/18/18 02:28 This 72-year-old man with a history of HTN/HLD/BPH/sleep apnea/chronic bronchitis presents with approximately 5 day history of substernal chest pressure that he feels only when he lies down at night; he does not have this sensation at all during the day, even with exertion. He denies palpitations/ shortness of breath/nausea or diaphoresis. Also for approximately 5 days, he has had bilateral forearm and hand paresthesias, also when he lies down at night. Similarly, he has no paresthesias during the day or with exertion. He describes the upper extremity discomfort on both the dorsal and volar surfaces of his lower arms. Patient has a history of chronic pain in his legs secondary to zoster but this discomfort is different. Patient has had a few week history of cough productive of whitish sputum, very similar to past episodes of bronchitis which he has frequently. He denies fever /chills, shortness of breath/wheezing. He was seen in urgent care last week where chest x-ray was reportedly normal. Patient denies shortness of breath/chest pain or pressure with exertion. Patient denies recent stress test, stating this testing was performed several years ago and reportedly normal. No history of cardiac catheterization Cardiac Risk factors: Positive HTN/HLD; no smoking/FH/DM Medications as noted below Past History - Past Medical History Allergies/Adverse Reactions: Allergies Allergy/AdvReac Type Severity Reaction Status Date / Time codeine [Codeine] Allergy Verified 10/26/17 14:27 Penicillins Allergy Verified 10/26/17 14:27 Home Medications: Ambulatory Orders Diltiazem [Cardizem -] 300 mg PO DAILY 12/20/12 Potassium Chloride [K-Dur] 20 meq PO BID 12/20/12 Tamsulosin HCl 0.4 mg PO BID 12/20/12 Aspirin [ASA -] 81 mg PO DAILY 10/28/16 Amiloride HCl 5 mg PO BID 10/09/17 Albuterol Sulfate [Proair Respiclick] 90 mcg IH PRN 02/12/18 Cyclobenzaprine HCl 5 mg PO HS 02/12/18 Fluticasone Furoate [Flonase Sensimist] 5.9 ml NS PRN 02/12/18 Gabapentin [Neurontin] 300 mg PO HS 02/12/18 Terazosin HCl [Hytrin -] 10 mg PO HS 02/12/18 Atorvastatin Ca [Lipitor] 10 mg PO HS 05/18/18 Anemia: No Asthma: Yes Cancer: No Cardiac Disorders: Yes (MVP) CVA: No COPD: No CHF: No DVT: No Dementia: No Diabetes: No GI Disorders: Yes (DIVERTICULITIS,DIVERTICULOSIS,HEMORRHOIDS) Disorders: Yes (bph) HTN: Yes Hypercholesterolemia: Yes Liver Disease: No Seizures: No Thyroid Disease: No - Surgical History Abdominal Surgery: No Appendectomy: Yes (COLONOSCOPY) Cardiac Surgery: No Cholecystectomy: No Lung Surgery: No Neurologic Surgery: No Orthopedic Surgery: No - Suicide/Smoking/Psychosocial Hx Smoking History: Never smoked Have you smoked in the past 12 months: No Hx Alcohol Use: Yes Drug/Substance Use Hx: No Substance Use Type: None Hx Substance Use Treatment: No Cardiac Specific PMH - Complaint Specific PMHX Pacemaker: No Review of Systems - Review of Systems Able to Perform ROS?: Yes Comments:: 12 point review of systems is negative except for what is noted in the history of present illness *Physical Exam - Vital Signs Last Vital Signs Temp Pulse Resp BP Pulse Ox 97.9 F 65 18 191/70 H 99 05/18/18 05:35 05/18/18 05:35 05/18/18 05:35 05/18/18 05:35 05/18/18 05:35 - Physical Exam Comments: GENERAL: Adult male, alert and oriented 3, in no acute distress HEAD: Normal with no signs of trauma. EYES: PERRLA, EOMI, sclera anicteric, conjunctiva clear. ENT: Ears normal, nares patent, oropharynx clear without exudates. Moist mucous membranes. NECK: Normal range of motion, supple without lymphadenopathy, JVD, or masses. LUNGS: Breath sounds equal, clear to auscultation bilaterally. No wheezes, and no crackles. CHEST WALL: No tenderness/crepitus/step offs HEART:Regular rate and rhythm, normal S1 and S2 without murmur, rub or gallop. ABDOMEN:.normal bowel sounds No guarding,tenderness or rebound.No masses No distention. EXTREMITIES: Normal range of motion, no edema. No clubbing or cyanosis. No erythema, or tenderness. NEUROLOGICAL: Cranial nerves II through XII grossly intact. Normal speech. No focal neurological deficits. MUSCULOSKELETAL: Back non-tender to palpation, no CVA tenderness SKIN: Warm, Dry, normal turgor, no rashes or lesions noted. 12-lead electrocardiogram performed: Normal sinus rhythm at 78 bpm; right bundle branch block noted. [place] and intervals normal. No significant change from EKG tracing dated 10/28/16 Portable chest x-ray performed: Preliminary reading by me-no acute pathology with absence of infiltrate/effusion/masses Heart Score/ECG Review - History History: Slightly suspicious - Electrocardiogram EKG: Normal - Age Age: >/= 65 - Risk Factors Risk Factors Heart Score: Yes Hx Hypercholesterolemia, Yes Hx Hypertension Based on the list above the patient has:: 1-2 risk factors - Troponin Troponin: >/=3x normal limit - Score Heart Score - Total: 5 ED Treatment Course - LABORATORY CBC & Chemistry Diagram: 05/18/18 01:36 05/18/18 01:36 - ADDITIONAL ORDERS Additional order review: Laboratory Results 05/18/18 01:36 Sodium 140 Potassium 3.4 L Chloride 106 Carbon Dioxide 29 Anion Gap 5 L BUN 27 H Creatinine 1.5 H Creat Clearance w eGFR 45.87 Random Glucose 182 H Calcium 9.0 Total Bilirubin 0.3 AST 18 ALT 31 Alkaline Phosphatase 66 Creatine Kinase 129 Troponin I 0.28 H Total Protein 7.3 Albumin 3.8 05/18/18 01:36 RBC 4.23 MCV 87.8 MCHC 34.2 RDW 13.8 MPV 8.4 Neutrophils % 66.1 D Lymphocytes % 19.8 D Monocytes % 9.5 D Eosinophils % 4.0 D Basophils % 0.6 - RADIOLOGY Radiology Studies Ordered: Category Date Time Status CHEST X-RAY PORTABLE* [RAD] Stat Radiology 05/18/18 01:36 Taken - Medications Given in the ED: ED Medications Discontinued Medications Generic Name Dose Route Start Last Admin Trade Name Freq PRN Reason Stop Dose Admin Aspirin 162 mg 05/18/18 03:45 05/18/18 03:51 Asa - PO 05/18/18 03:46 162 mg ONCE ONE Administration Potassium Chloride 20 meq 05/18/18 03:46 05/18/18 03:51 K-Dur - PO 05/18/18 03:47 20 meq ONCE ONE Administration Medical Decision Making - Medical Decision Making Laboratory evaluation notable for equivocal level of troponin at 0.28. Heart score 5 Also, BUN and creatinine slightly elevated from previously (28/1.5; baseline Cre 1.3 )and K low at 3.4. Otherwise labs essentially normal or unchanged from previous levels Results discussed with the patient. answering service called. 05/18/18 03:26 Second call placed to answering service. 05/18/18 03:50 Continue to wait for response from PMD Case discussed with MARTÍN Loyd of [facility] hospitalist service. The hospitalist service admits for Dr. Arriaga overnight. Patient will be admitted in observation status to Dr. Payne's service with diagnosis of chest pain/rule out myocardial infarction. On-call advertising sales consultant is Dr. Arellano and consultation placed. ASA 162 mg , K Dur 20 meq given 05/18/18 06:35 called in to ER; informed of the patient's presentation and admission. *DC/Admit/Observation/Transfer Diagnosis at time of Disposition: Elevated troponin Chest pain Qualifiers: Chest pain type: unspecified Qualified Code(s): R07.9 - Chest pain, unspecified - Discharge Dispostion Condition at time of disposition: Guarded Decision to Admit order: Yes Decision to Admit order Date/Time: Decision to Admit Order Category Date Time Status Decision to Admit to Hospital Routine Admission 05/18/18 03:48 Active - Referrals - Patient Instructions - Post Discharge Activity
[2018-05-18 02:35] LABS: BASO % 0.6 % (0-2.0); HEMATOCRIT 37.2 % (35.4-49); HEMOGLOBIN 12.7 GM/dL (11.7-16.9); LYMPH % 19.8 % (8-40); MCHC 34.2 g/dl (32.0-35.9); MEAN CELL VOLUME 87.8 fl (80-96); MEAN PLT VOLUME 8.4 fl (7.5-11.1); MONO % 9.5 % (3.8-10.2); NEUT % 66.1 % (42.8-82.8); PLATELET COUNT 196 K/MM3 (134-434); RBC 4.23 M/mm3 (4.00-5.60); RDW 13.8 % (11.9-15.9)
[2018-05-18 03:00] LABS: ALBUMIN 3.8 g/dl (3.4-5.0); ALK PHOS 66 U/L (45-117); ANION GAP 5 MMOL/L (8-16); BILIRUBIN,TOTAL 0.3 mg/dL (0.2-1); BLOOD UREA NITROGEN 27 mg/dL (7-18); CHLORIDE 106 mmol/L (98-107); CO2 29 mmol/L (21-32); CREATININE 1.5 mg/dL (0.55-1.3); GLUCOSE,RANDOM 182 mg/dL (74-106); POTASSIUM 3.4 mmol/L (3.5-5.1); SGOT/AST 18 U/L (15-37); SGPT/ALT 31 U/L (13-61); SODIUM 140 mmol/L (136-145); TOT PROT 7.3 g/dl (6.4-8.2)
[2018-05-18] MEDS ORDERED: ASPIRIN 81 MG CHEWABLE TABLETS PO ONE (03:45)
[2018-05-18] MEDS ORDERED: POTASSIUM CHLORIDE TABS 20 MEQ TABLET.ER (FP) PO ONE ×2 (03:46→03:49)
[2018-05-18] MEDS ORDERED: ASPIRIN 81 MG CHEWABLE TABLETS ONE (03:49)
[2018-05-18] MEDS ORDERED: ALBUTEROL SO4 8 GM HFA INHALER IH PRN (05:38)
[2018-05-18 05:48] VITALS: BMI 29.8
[2018-05-18] MEDS ORDERED: TAMSULOSIN HCL 0.4 MG CAP.ER.24H (FP) PO SCH (08:30)
[2018-05-18] MEDS: TAMSULOSIN HCL 0.4 MG CAP.ER.24H (FP) PO SCH (08:36)
[2018-05-18] MEDS ORDERED: PT OWN MED DRAWER 7, Y5N ONE (08:39)
[2018-05-18] MEDS: MULTIVITAMINS (DAILY MVI) TABLET (FP) PO SCH (09:38)
[2018-05-18 10:00] LABS: MAGNESIUM 1.8 mg/dL (1.8-2.4); PHOSPHOROUS 2.9 mg/dl (2.5-4.6)
[2018-05-18] MEDS ORDERED: METOPROLOL TARTRATE 50 MG TABLET (FP) PO SCH (10:00)
[2018-05-18 10:22] LABS: INR 1.09 (0.82-1.09); PROTHROMBIN TIME (PATIENT) 12.2 SEC (10.2-13.0)
--- NOTE | 2018-05-18 12:37 | HP ---
Admitting History and Physical - Primary Care Physician PCP: Dr polly Arriaga - Admission History of Present Illness: 72-year-old man with a history of HTN/HLD/BPH/sleep apnea/chronic bronchitis presents with approximately 5 day history of substernal chest pressure that he feels only when he lies down at night; he does not have this sensation at all during the day, even with exertion. He denies palpitations/shortness of breath/ nausea or diaphoresis. Also for approximately 5 days, he has had bilateral forearm and hand paresthesias, also when he lies down at night. Similarly, he has no paresthesias during the day or with exertion. He describes the upper extremity discomfort on both the dorsal and volar surfaces of his lower arms. Patient has a history of chronic pain in his legs secondary to zoster but this discomfort is different. Patient has had a few week history of cough productive of whitish sputum, very similar to past episodes of bronchitis which he has frequently. He denies fever /chills, shortness of breath/wheezing. He was seen in urgent care last week where chest x-ray was reportedly normal. Patient denies shortness of breath/chest pain or pressure with exertion. Patient denies recent stress test, stating this testing was performed several years ago and reportedly normal. No history of cardiac catheterization History Source: Patient Limitations to Obtaining History: No Limitations - Past Medical History Cardiovascular: Yes: CAD, HTN, Hyperlipdemia Pulmonary: Yes: Bronchitis - Smoking History Smoking history: Never smoked Have you smoked in the past 12 months: No - Alcohol/Substance Use Hx Alcohol Use: Yes Home Medications - Allergies Allergies/Adverse Reactions: Allergies Allergy/AdvReac Type Severity Reaction Status Date / Time codeine [Codeine] Allergy Verified 10/26/17 14:27 Penicillins Allergy Verified 10/26/17 14:27 - Home Medications Home Medications: Ambulatory Orders Diltiazem [Cardizem -] 300 mg PO DAILY 12/20/12 Potassium Chloride [K-Dur] 20 meq PO BID 12/20/12 Tamsulosin HCl 0.4 mg PO BID 12/20/12 Aspirin [ASA -] 81 mg PO DAILY 10/28/16 Amiloride HCl 5 mg PO BID 10/09/17 Albuterol Sulfate [Proair Respiclick] 90 mcg IH PRN 02/12/18 Cyclobenzaprine HCl 5 mg PO HS 02/12/18 Fluticasone Furoate [Flonase Sensimist] 5.9 ml NS PRN 02/12/18 Gabapentin [Neurontin] 300 mg PO HS 02/12/18 Terazosin HCl [Hytrin -] 10 mg PO HS 02/12/18 Atorvastatin Ca [Lipitor] 10 mg PO HS 05/18/18 Physical Examination Vital Signs: Vital Signs Temperature 98 F 05/18/18 11:47 Pulse Rate 86 05/18/18 11:47 Respiratory Rate 18 05/18/18 11:47 Blood Pressure 174/89 H 05/18/18 11:47 O2 Sat by Pulse Oximetry (%) 99 05/18/18 10:00 Labs: CBC, BMP 05/18/18 01:36 05/18/18 01:36 Problem List - Problems (1) Chest pain Code(s): R07.9 - CHEST PAIN, UNSPECIFIED Qualifiers: Chest pain type: unspecified Qualified Code(s): R07.9 - Chest pain, unspecified (2) Hypercholesterolemia Code(s): E78.00 - PURE HYPERCHOLESTEROLEMIA, UNSPECIFIED (3) HLD (hyperlipidemia) Code(s): E78.5 - HYPERLIPIDEMIA, UNSPECIFIED (4) Elevated troponin Code(s): R74.8 - ABNORMAL LEVELS OF OTHER SERUM ENZYMES (5) Sleep apnea Code(s): G47.30 - SLEEP APNEA, UNSPECIFIED (6) Obesity (BMI 30.0-34.9) Code(s): E66.9 - OBESITY, UNSPECIFIED (7) 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
--- NOTE | 2018-05-18 12:50 | CON.CARD ---
Consult Consult Specialty:: Cardiology Referred by:: Dr. Arriaga Reason for Consultation:: Cardiac evaluation - History of Present Illness Chief Complaint: Chest pain History of Present Illness: Patient is a 72 year old male with underlying history of HTN, hypercholesterolemia, sleep apnea and bronchitis who presented with substernal chest pressure radiating to left arm. He denied SOB or palpitations. He denied paroxysmal nocturnal dyspnea or orthopnea. He denied nausea, vomiting, diarrhea or abdominal pain. He denied headache or lightheadedness. He states that cardiac testings were done several years ago and was reported normal. He was transferred to [facility] from [place] due to persistent chest discomfort. Cardiac enzymes was initially elevated to 0.28 and now decreasing to 0.18. - History Source History Provided By: Patient, Medical Record Limitations to Obtaining History: No Limitations - Past Medical History Cardio/Vascular: Yes: CAD, HTN, Hyperlipdemia Pulmonary: Yes: Bronchitis - Alcohol/Substance Use Hx Alcohol Use: Yes - Smoking History Smoking history: Never smoked Have you smoked in the past 12 months: No Home Medications - Allergies Allergies/Adverse Reactions: Allergies Allergy/AdvReac Type Severity Reaction Status Date / Time codeine [Codeine] Allergy Verified 10/26/17 14:27 Penicillins Allergy Verified 10/26/17 14:27 - Home Medications Home Medications: Ambulatory Orders Diltiazem [Cardizem -] 300 mg PO DAILY 12/20/12 Potassium Chloride [K-Dur] 20 meq PO BID 12/20/12 Tamsulosin HCl 0.4 mg PO BID 12/20/12 Aspirin [ASA -] 81 mg PO DAILY 10/28/16 Amiloride HCl 5 mg PO BID 10/09/17 Albuterol Sulfate [Proair Respiclick] 90 mcg IH PRN 02/12/18 Cyclobenzaprine HCl 5 mg PO HS 02/12/18 Fluticasone Furoate [Flonase Sensimist] 5.9 ml NS PRN 02/12/18 Gabapentin [Neurontin] 300 mg PO HS 02/12/18 Terazosin HCl [Hytrin -] 10 mg PO HS 02/12/18 Atorvastatin Ca [Lipitor] 10 mg PO HS 05/18/18 Review of Systems - Review of Systems Constitutional: denies: Chills, Fever Cardiovascular: reports: Chest Pain. denies: Palpitations, Shortness of Breath Respiratory: denies: Cough, Hemoptysis, Orthopnea, PND, SOB, SOB on Exertion Gastrointestinal: denies: Abdominal Pain, Constipation, Diarrhea, Melena, Nausea , Rectal Bleeding, Vomiting Genitourinary: denies: Dysuria, Hematuria Neurological: denies: Dizziness, Headache, Seizure, Syncope Vital Signs: Vital Signs Temperature 98 F 05/18/18 11:47 Pulse Rate 86 05/18/18 11:47 Respiratory Rate 18 05/18/18 11:47 Blood Pressure 174/89 H 05/18/18 11:47 O2 Sat by Pulse Oximetry (%) 99 05/18/18 10:00 Constitutional: Yes: Well Nourished Eyes: Yes: PERRL HENT: Yes: Atraumatic Neck: Yes: Supple Respiratory: Yes: CTA Bilaterally Gastrointestinal: Yes: Normal Bowel Sounds, Soft. No: Tenderness Cardiovascular: Yes: Regular Rate and Rhythm JVD: No Carotid Bruit: No PMI: Non-Displaced Heart Sounds: Yes: S1, S2 Edema: No - Other Data Labs, Other Data: CBC, BMP 05/18/18 01:36 05/18/18 01:36 INR, PTT INR 1.09 (0.82-1.09) 05/18/18 08:10 Troponin, BNP 05/18/18 05/18/18 01:36 08:10 Troponin I 0.28 H 0.18 H Sinus rhythm with RBBB Imaging - Results Chest X-ray: Report Reviewed (No infiltrates) EKG: Report Reviewed Problem List - Problems (1) Hypercholesterolemia Code(s): E78.00 - PURE HYPERCHOLESTEROLEMIA, UNSPECIFIED (2) Chest pain Code(s): R07.9 - CHEST PAIN, UNSPECIFIED Qualifiers: Chest pain type: unspecified Qualified Code(s): R07.9 - Chest pain, unspecified (3) Elevated troponin Code(s): R74.8 - ABNORMAL LEVELS OF OTHER SERUM ENZYMES Assessment/Plan 1. Chest pain syndrome with elevated troponin suggests demand ischemia vs. NSTEMI 2. HTN 3. Hypercholesterolemia PLAN: 1. Trend troponin 2. If troponin continues to trend down, consider further cardiac testing including pharmacologic nuclear MPI and echocardiography to assess LV/RV and valvular function 3. Beta jyoti (Metoprolol) as tolerated instead of Cardizem 4. ASA 5. Statin Further plans are to follow Robin Arellano MD
[2018-05-18] MEDS: LOSARTAN 50MG/HCTZ 12.5MG 1 TAB (FP) PO SCH (13:44)
[2018-05-18] MEDS ORDERED: POTASSIUM CHLORIDE TABS 20 MEQ TABLET.ER (FP) PO SCH (22:00)
[2018-05-18] MEDS: CYCLOBENZAPRINE HCL 10 MG TABLET (FP) PO SCH (22:05)
[2018-05-18] MEDS: GABAPENTIN 300 MG CAPSULE (FP) PO SCH (22:05)
[2018-05-18] MEDS: ATORVASTATIN CA 10 MG TABLET (FP) PO SCH (22:05)
[2018-05-18] MEDS: TERAZOSIN HCL 5 MG CAPSULE PO SCH (22:05)
--- NOTE | 2018-05-18 23:22 | EKG ---
Test Reason : Blood Pressure : / mmHG Vent. Rate : 078 BPM Atrial Rate : 078 BPM P-R Int : 184 ms QRS Dur : 154 ms QT Int : 438 ms P-R-T Axes : 075 -07 020 degrees QTc Int : 499 ms NORMAL SINUS RHYTHM RIGHT BUNDLE BRANCH BLOCK ABNORMAL ECG WHEN COMPARED WITH ECG OF 28-OCT-2016 12:04, NO SIGNIFICANT CHANGE WAS FOUND Confirmed by THIAGO RODRIGUEZ MD ([id number]) on 05/18/2018 11:22:31 PM Referred By: MD GENAO Confirmed By:THIAGO RODRIGUEZ MD
[2018-05-19 07:26] LABS: BASO % 0.5 % (0-2.0); EOS % 4.1 % (0-4.5); HEMATOCRIT 37.8 % (35.4-49); HEMOGLOBIN 12.8 GM/dL (11.7-16.9); LYMPH % 16.1 % (8-40); MCH 29.5 pg (25.7-33.7); MEAN CELL VOLUME 86.7 fl (80-96); MONO % 8.4 % (3.8-10.2); NEUT % 70.9 % (42.8-82.8); PLATELET COUNT 177 K/MM3 (134-434); RBC 4.36 M/mm3 (4.00-5.60); RDW 13.8 % (11.9-15.9); WHITE BLOOD COUNT 9.4 K/mm3 (4.0-10.0)
[2018-05-19 09:01] LABS: ANION GAP 9 MMOL/L (8-16); BLOOD UREA NITROGEN 20 mg/dL (7-18); CALCIUM 8.8 mg/dL (8.5-10.1); CHLORIDE 104 mmol/L (98-107); CO2 28 mmol/L (21-32); CREATININE 1.2 mg/dL (0.55-1.3); GLUCOSE,RANDOM 141 mg/dL (74-106); POTASSIUM 3.2 mmol/L (3.5-5.1); SODIUM 141 mmol/L (136-145)
[2018-05-19] MEDS: TAMSULOSIN HCL 0.4 MG CAP.ER.24H (FP) PO SCH (10:24)
[2018-05-19] MEDS: MULTIVITAMINS (DAILY MVI) TABLET (FP) PO SCH (10:25)
[2018-05-19] MEDS: LOSARTAN 50MG/HCTZ 12.5MG 1 TAB (FP) PO SCH (10:25)
[2018-05-19] MEDS: ASPIRIN 81 MG CHEWABLE TABLETS PO SCH (10:25)
--- NOTE | 2018-05-19 10:31 | PN ---
Progress Note, Physician Chief Complaint: [employer] alright yesterday, but this morning complains of left arm numbness and chest discomfort History of Present Illness: Patient was seen and examined. Awake and alert. Chart was reviewed Denies SOB or palpitations - Current Medication List Current Medications: Active Medications Albuterol Sulfate (Ventolin Hfa Inhaler -) 2 puff IH Q4H PRN PRN Reason: SHORT OF BREATH/WHEEZING Aspirin (Asa -) 81 mg PO DAILY [facility] Atorvastatin Calcium (Lipitor -) 10 mg PO HS [facility] Last Admin: 05/18/18 22:05 Dose: 10 mg Cyclobenzaprine HCl (Flexeril -) 5 mg PO [facility] Last Admin: 05/18/18 22:05 Dose: 5 mg Diltiazem HCl (Cardizem Cd -) 300 mg PO DAILY [facility] Last Admin: 05/18/18 08:30 Dose: 300 mg Gabapentin (Neurontin -) 300 mg PO [facility] Last Admin: 05/18/18 22:05 Dose: 300 mg HCTZ/Losartan Potassium (Hyzaar -) 1 tab PO DAILY [facility] Last Admin: 05/18/18 13:44 Dose: 1 tab Metoprolol Tartrate (Lopressor -) 50 mg PO NOW [facility] Last Admin: 05/18/18 09:30 Dose: 50 mg Multivitamins/Minerals/Vitamin C (Tab-A-Vit -) 1 tab PO DAILY [facility] Last Admin: 05/18/18 09:38 Dose: 1 tab Tamsulosin HCl (Flomax -) 0.8 mg PO DAILY@0830 [facility] Last Admin: 05/18/18 08:36 Dose: 0.8 mg Terazosin HCl (Hytrin -) 10 mg PO [facility] Last Admin: 05/18/18 22:05 Dose: 10 mg - Objective Vital Signs: Vital Signs Temperature 97.0 F L 05/19/18 05:50 Pulse Rate 75 05/19/18 05:50 Respiratory Rate 20 05/19/18 05:50 Blood Pressure 153/81 05/19/18 05:50 O2 Sat by Pulse Oximetry (%) 98 05/18/18 23:38 HENT: Yes: Atraumatic Neck: Yes: Supple Cardiovascular: Yes: Regular Rate and Rhythm, S1, S2 Respiratory: Yes: CTA Bilaterally Gastrointestinal: Yes: Normal Bowel Sounds, Soft. No: Tenderness Edema: No Labs: CBC, BMP 05/19/18 06:20 05/19/18 06:20 INR, PTT INR 1.09 (0.82-1.09) 05/18/18 08:10 Problem List - Problems (1) Hypercholesterolemia Code(s): E78.00 - PURE HYPERCHOLESTEROLEMIA, UNSPECIFIED (2) Chest pain Code(s): R07.9 - CHEST PAIN, UNSPECIFIED Qualifiers: Chest pain type: unspecified Qualified Code(s): R07.9 - Chest pain, unspecified (3) Elevated troponin Code(s): R74.8 - ABNORMAL LEVELS OF OTHER SERUM ENZYMES Assessment/Plan 1. Chest pain syndrome with elevated troponin suggests demand ischemia vs. NSTEMI 2. HTN 3. Hypercholesterolemia PLAN: 1. Trend troponin - check troponin this morning 2. If troponin continues to trend down, consider further cardiac testing including pharmacologic nuclear MPI and echocardiography to assess LV/RV and valvular function otherwise consider invasive approach 3. Resume Metoprolol instead of Cardizem 4. ASA +/- Plavix 5. Statin 6. Add NTP Further plans are to follow Robin Arellano MD
[2018-05-19] MEDS: METOPROLOL TARTRATE 50 MG TABLET (FP) PO SCH ×2 (11:32→22:13)
[2018-05-19] MEDS: NITROGLYCERIN 2% OINTMENT - 1GM PACKET TD SCH ×2 (11:32→18:07)
--- NOTE | 2018-05-19 12:58 | PN ---
Progress Note, Physician History of Present Illness: Pt relatively better Pt is having bilateral shoulder pain Chest pain better - Current Medication List Current Medications: Active Medications Albuterol Sulfate (Ventolin Hfa Inhaler -) 2 puff IH Q4H PRN PRN Reason: SHORT OF BREATH/WHEEZING Aspirin (Asa -) 81 mg PO DAILY [facility] Last Admin: 05/19/18 10:25 Dose: 81 mg Atorvastatin Calcium (Lipitor -) 10 mg PO HS [facility] Last Admin: 05/18/18 22:05 Dose: 10 mg Cyclobenzaprine HCl (Flexeril -) 5 mg PO HS [facility] Last Admin: 05/18/18 22:05 Dose: 5 mg Gabapentin (Neurontin -) 300 mg PO [facility] Last Admin: 05/18/18 22:05 Dose: 300 mg HCTZ/Losartan Potassium (Hyzaar -) 1 tab PO DAILY [facility] Last Admin: 05/19/18 10:25 Dose: 1 tab Metoprolol Tartrate (Lopressor -) 50 mg PO NOW [facility] Last Admin: 05/18/18 09:30 Dose: 50 mg Metoprolol Tartrate (Lopressor -) 50 mg PO BID [facility] Last Admin: 05/19/18 11:32 Dose: 50 mg Multivitamins/Minerals/Vitamin C (Tab-A-Vit -) 1 tab PO DAILY [facility] Last Admin: 05/19/18 10:25 Dose: 1 tab Nitroglycerin (Nitro-Bid 2% Paste -) 1 inch TD Q6HPO [facility] Last Admin: 05/19/18 11:32 Dose: 1 inch Potassium Chloride (Potassium Chloride Oral Liquid) 40 meq PO ONCE ONE Stop: 05/19/18 12:52 Tamsulosin HCl (Flomax -) 0.8 mg PO DAILY@0830 [facility] Last Admin: 05/19/18 10:24 Dose: 0.8 mg Terazosin HCl (Hytrin -) 10 mg PO [facility] Last Admin: 05/18/18 22:05 Dose: 10 mg - Objective Vital Signs: Vital Signs Temperature 98 F 05/19/18 10:00 Pulse Rate 78 05/19/18 10:00 Respiratory Rate 18 05/19/18 10:00 Blood Pressure 158/88 05/19/18 10:00 O2 Sat by Pulse Oximetry (%) 98 05/18/18 23:38 Constitutional: Yes: No Distress Eyes: Yes: Conjunctiva Clear HENT: Yes: Atraumatic, Normocephalic Neck: Yes: Supple, Trachea Midline Cardiovascular: Yes: Regular Rate and Rhythm, S1, S2 Respiratory: Yes: Regular, CTA Bilaterally Gastrointestinal: Yes: Normal Bowel Sounds, Soft ...Rectal Exam: Yes: Deferred Musculoskeletal: Yes: Joint Stiffness Edema: No Peripheral Pulses WNL: Yes Neurological: Yes: Alert, Oriented, Cran Nerves II-XII Intact Labs: CBC, BMP 05/19/18 06:20 05/19/18 06:20 INR, PTT INR 1.09 (0.82-1.09) 05/18/18 08:10 Problem List - Problems (1) Chest pain Code(s): R07.9 - CHEST PAIN, UNSPECIFIED Qualifiers: Chest pain type: unspecified Qualified Code(s): R07.9 - Chest pain, unspecified (2) Hypercholesterolemia Code(s): E78.00 - PURE HYPERCHOLESTEROLEMIA, UNSPECIFIED (3) HLD (hyperlipidemia) Code(s): E78.5 - HYPERLIPIDEMIA, UNSPECIFIED (4) Elevated troponin Code(s): R74.8 - ABNORMAL LEVELS OF OTHER SERUM ENZYMES (5) Sleep apnea Code(s): G47.30 - SLEEP APNEA, UNSPECIFIED (6) Obesity (BMI 30.0-34.9) Code(s): E66.9 - OBESITY, UNSPECIFIED (7) 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 (10) Syncope Code(s): R55 - SYNCOPE AND COLLAPSE Assessment/Plan - Problems (1) Chest pain Code(s): R07.9 - CHEST PAIN, UNSPECIFIED Qualifiers: Chest pain type: unspecified Qualified Code(s): R07.9 - Chest pain, unspecified (2) Hypercholesterolemia Code(s): E78.00 - PURE HYPERCHOLESTEROLEMIA, UNSPECIFIED (3) HLD (hyperlipidemia) Code(s): E78.5 - HYPERLIPIDEMIA, UNSPECIFIED (4) Elevated troponin Code(s): R74.8 - ABNORMAL LEVELS OF OTHER SERUM ENZYMES (5) Sleep apnea : BIPAP Code(s): G47.30 - SLEEP APNEA, UNSPECIFIED (6) Obesity (BMI 30.0-34.9) Code(s): E66.9 - OBESITY, UNSPECIFIED (7) 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 Pt is off Cardizem BP being controlled with Losartan/ Metoprolol Pt will have stress test Pt is stable Hypokalemia being corrected
[2018-05-19] MEDS ORDERED: POTASSIUM CHLORIDE ORAL LIQUID 20 MEQ/15 ML PO ONE (13:15)
[2018-05-19] MEDS: PANTOPRAZOLE 40 MG TABLET (FP) PO SCH (13:38)
[2018-05-19] MEDS ORDERED: PT OWN MED DRAWER 7, Y5N ONE (17:15)
[2018-05-19] MEDS: NAPROXEN 500 MG TABLET (FP) PO SCH (18:07)
[2018-05-19] MEDS: ATORVASTATIN CA 10 MG TABLET (FP) PO SCH (22:12)
[2018-05-19] MEDS: CYCLOBENZAPRINE HCL 10 MG TABLET (FP) PO SCH (22:13)
[2018-05-19] MEDS: GABAPENTIN 300 MG CAPSULE (FP) PO SCH (22:13)
[2018-05-19] MEDS: TERAZOSIN HCL 5 MG CAPSULE PO SCH (22:45)
[2018-05-20] MEDS: NITROGLYCERIN 2% OINTMENT - 1GM PACKET TD SCH ×4 (00:29→17:54)
[2018-05-20] MEDS ORDERED: ACETAMINOPHEN 325 MG TABLET (FP) PO ONE (04:17)
--- NOTE | 2018-05-20 06:12 | EKG ---
Test Reason : Blood Pressure : / mmHG Vent. Rate : 074 BPM Atrial Rate : 074 BPM P-R Int : 172 ms QRS Dur : 152 ms QT Int : 432 ms P-R-T Axes : 075 -10 -11 degrees QTc Int : 479 ms NORMAL SINUS RHYTHM RIGHT BUNDLE BRANCH BLOCK ABNORMAL ECG WHEN COMPARED WITH ECG OF 18-MAY-2018 06:55, NO SIGNIFICANT CHANGE WAS FOUND Confirmed by MICHAEL HAMMOND, THIAGO ([id number]) on 05/20/2018 6:11:57 AM Referred By: Jayne DIALLO Confirmed By:THIAGO RODRIGUEZ MD
[2018-05-20] MEDS ORDERED: REGADENOSON 0.4 MG/5 ML PRE-FILLED SYRINGE IVPUSH ONE (09:15)
[2018-05-20] MEDS: LOSARTAN 50MG/HCTZ 12.5MG 1 TAB (FP) PO SCH (09:16)
--- NOTE | 2018-05-20 11:45 | PN ---
Progress Note, Physician History of Present Illness: Chest pain and dyspnea improving. - Current Medication List Current Medications: Active Medications Albuterol Sulfate (Ventolin Hfa Inhaler -) 2 puff IH Q4H PRN PRN Reason: SHORT OF BREATH/WHEEZING Aspirin (Asa -) 81 mg PO DAILY [facility] Last Admin: 05/19/18 10:25 Dose: 81 mg Atorvastatin Calcium (Lipitor -) 10 mg PO HS [facility] Last Admin: 05/19/18 22:12 Dose: 10 mg Cyclobenzaprine HCl (Flexeril -) 5 mg PO HS [facility] Last Admin: 05/19/18 22:13 Dose: 5 mg Gabapentin (Neurontin -) 300 mg PO HS [facility] Last Admin: 05/19/18 22:13 Dose: 300 mg HCTZ/Losartan Potassium (Hyzaar -) 1 tab PO DAILY [facility] Last Admin: 05/20/18 09:16 Dose: 1 tab Metoprolol Tartrate (Lopressor -) 50 mg PO NOW [facility] Last Admin: 05/18/18 09:30 Dose: 50 mg Metoprolol Tartrate (Lopressor -) 50 mg PO BID [facility] Last Admin: 05/19/18 22:13 Dose: 50 mg Multivitamins/Minerals/Vitamin C (Tab-A-Vit -) 1 tab PO DAILY [facility] Last Admin: 05/19/18 10:25 Dose: 1 tab Naproxen (Naprosyn -) 500 mg PO BIDWM [facility] Last Admin: 05/19/18 18:07 Dose: 500 mg Nitroglycerin (Nitro-Bid 2% Paste -) 1 inch TD Q6HPO [facility] Last Admin: 05/20/18 05:55 Dose: 1 inch Pantoprazole Sodium (Protonix -) 40 mg PO DAILY [facility] Last Admin: 05/19/18 13:38 Dose: 40 mg Tamsulosin HCl (Flomax -) 0.8 mg PO DAILY@0830 [facility] Last Admin: 05/19/18 10:24 Dose: 0.8 mg Terazosin HCl (Hytrin -) [address] [facility] Last Admin: 05/19/18 22:45 Dose: 10 mg - Objective Vital Signs: Vital Signs Temperature 97.8 F 05/20/18 03:00 Pulse Rate 74 05/20/18 05:44 Respiratory Rate 20 05/20/18 05:44 Blood Pressure 158/90 05/20/18 05:44 O2 Sat by Pulse Oximetry (%) 98 05/20/18 00:00 Constitutional: Yes: No Distress, Calm Neck: Yes: Supple Cardiovascular: Yes: Regular Rate and Rhythm, Murmur (2/6 SM) Respiratory: Yes: Regular, CTA Bilaterally Gastrointestinal: Yes: Normal Bowel Sounds, Soft Edema: No Labs: CBC, BMP 05/19/18 06:20 05/19/18 06:20 INR, PTT INR 1.09 (0.82-1.09) 05/18/18 08:10 Problem List - Problems (1) Unstable angina Code(s): I20.0 - UNSTABLE ANGINA (2) Abnormal cardiovascular function Code(s): R94.30 - ABNORMAL RESULT OF CARDIOVASCULAR FUNCTION STUDY, UNSP (3) Elevated troponin Code(s): R74.8 - ABNORMAL LEVELS OF OTHER SERUM ENZYMES (4) HLD (hyperlipidemia) Code(s): E78.5 - HYPERLIPIDEMIA, UNSPECIFIED Qualifiers: Hyperlipidemia type: pure hypercholesterolemia Qualified Code(s): E78.00 - Pure hypercholesterolemia, unspecified; E78.0 - Pure hypercholesterolemia (5) Hypertensive urgency Code(s): I16.0 - HYPERTENSIVE URGENCY (6) Hypokalemia Code(s): E87.6 - HYPOKALEMIA Assessment/Plan 05/20/2018 Nuc stress: Mod inferior ischemia with small infarct, LVEF 52% 05/20/2018 Echo: Normal LV size with mod cLVH, LVEF 55-60%, mild LAE, mod MR, tr TR 1. CAD [place]/NSTEMI with abnormal functional testing 2. HTN urgency, BP not at goal 3. Hypercholesterolemia 4. Hypokalemia PLAN: 1. Trops downtrending 2. ASA 81 qd, Lipitor 10 qhs, Hyzaar 1 qd, change Lopressor 50 bid to carvedilol 6.25 bid, Hytrin 10 qd, NTP add Plavix 75 qd, replete K, d/c Naprosyn 3. Plan for [facility] Sunday to better define coronary anatomy, d/w patient
--- NOTE | 2018-05-20 12:00 | ECHO ---
Name: LUIS DANIEL MCDONALD Exam:Adult Echocardiogram Study Date: 05/20/2018 07:55 AM Age: 72 yrs Reason For Study: Chest pain Height: 71 in Weight: 214 lb BSA: 2.2 m2 MMode/2D Measurements & Calculations IVSd: 1.6 cm Ao root diam: 2.5 cm LVIDd: 4.4 cm LA dimension: 3.7 cm LVIDs: 3.3 cm LVPWd: 1.2 cm EDV(Teich): 89.6 ml ESV(Teich): 44.8 ml Doppler Measurements & Calculations MV E max josue: 109.0 cm/sec MR max josue: 667.0 cm/sec MV A max josue: 133.4 cm/sec MR max P.4 mmHg MV E/A: 0.82 MV dec time: 0.12 sec Med Peak E' Josue: 5.9 cm/sec Med E/e': 18.6 Lat Peak E' Josue: 6.5 cm/sec Lat E/e': 16.7 Procedure A complete two-dimensional transthoracic echocardiogram was performed (2D, M-mode, Doppler and color flow Doppler). Left Ventricle The left ventricle is normal in size. There is moderate concentric left ventricular hypertrophy. Left ventricular systolic function is normal. Ejection Fraction = 55-60%. E/A reversal with TDI revealing impaired relaxation with elevated filling pressure (E/E' 19). No regional wall motion abnormalities noted. Right Ventricle The right ventricle is normal size. The right ventricular systolic function is normal. Atria LA volume index is 41 ml/m2 c/w mild left atrial enlargement. Right atrial size is normal. Mitral Valve There is mild mitral annular calcification. There is moderate mitral regurgitation. Tricuspid Valve The tricuspid valve is normal in structure and function. There is trace tricuspid regurgitation. Aortic Valve There is mild aortic sclerosis.;. No aortic regurgitation is present. Pulmonic Valve The pulmonic valve is not well visualized. Great Vessels The aortic root is normal size. Pericardium/Pleura Trivial pericardial effusion not hemodynamically significant. Interpretation Summary The left ventricle is normal in size. There is moderate concentric left ventricular hypertrophy. Left ventricular systolic function is normal. No regional wall motion abnormalities noted. Ejection Fraction = 55-60%. E/A reversal with TDI revealing impaired relaxation with elevated filling pressure (E/E' 19) The right ventricular systolic function is normal. LA volume index is 41 ml/m2 c/w mild left atrial enlargement Right atrial size is normal. There is mild mitral annular calcification. There is moderate mitral regurgitation. There is trace tricuspid regurgitation. There is mild aortic sclerosis.; Trivial pericardial effusion not hemodynamically significant Previous study is not available for comparison Robin Arellano MD 05/20/2018 11:59 AM
[2018-05-20] MEDS: METOPROLOL TARTRATE 50 MG TABLET (FP) PO SCH (14:09)
[2018-05-20] MEDS: NAPROXEN 500 MG TABLET (FP) PO SCH (14:10)
[2018-05-20] MEDS: TAMSULOSIN HCL 0.4 MG CAP.ER.24H (FP) PO SCH (14:11)
[2018-05-20] MEDS: ASPIRIN 81 MG CHEWABLE TABLETS PO SCH (14:11)
[2018-05-20] MEDS: MULTIVITAMINS (DAILY MVI) TABLET (FP) PO SCH (14:13)
[2018-05-20] MEDS: PANTOPRAZOLE 40 MG TABLET (FP) PO SCH (14:13)
[2018-05-20] MEDS ORDERED: POTASSIUM CHLORIDE ORAL LIQUID 20 MEQ/15 ML PO ONE ×2 (16:19→22:11)
[2018-05-20] MEDS: CARVEDILOL 6.25 MG TABLET (FP) PO SCH ×2 (16:37→22:13)
[2018-05-20] MEDS: CLOPIDOGREL BISULFATE 75 MG TABLET (FP) PO SCH (16:37)
--- NOTE | 2018-05-20 22:08 | PN ---
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 History of Present Illness: Pt had Stress test Pt having Inferior wall Ishcemia For cardiac cath in AM - Current Medication List Current Medications: Active Medications Albuterol Sulfate (Ventolin Hfa Inhaler -) 2 puff IH Q4H PRN PRN Reason: SHORT OF BREATH/WHEEZING Aspirin (Asa -) 81 mg PO DAILY [facility] Last Admin: 05/20/18 14:11 Dose: 81 mg Atorvastatin Calcium (Lipitor -) 10 mg PO HS [facility] Last Admin: 05/19/18 22:12 Dose: 10 mg Carvedilol (Coreg -) 6.25 mg PO BID [facility] Last Admin: 05/20/18 16:37 Dose: 6.25 mg Clopidogrel Bisulfate (Plavix -) 75 mg PO DAILY [facility] Last Admin: 05/20/18 16:37 Dose: 75 mg Cyclobenzaprine HCl (Flexeril -) 5 mg PO HS [facility] Last Admin: 05/19/18 22:13 Dose: 5 mg Gabapentin (Neurontin -) 300 mg PO HS [facility] Last Admin: 05/19/18 22:13 Dose: 300 mg HCTZ/Losartan Potassium (Hyzaar -) 1 tab PO DAILY [facility] Last Admin: 05/20/18 09:16 Dose: 1 tab Losartan Potassium (Cozaar -) 100 mg PO DAILY [facility] Metoprolol Tartrate (Lopressor -) 50 mg PO NOW [facility] Last Admin: 05/18/18 09:30 Dose: 50 mg Multivitamins/Minerals/Vitamin C (Tab-A-Vit -) 1 tab PO DAILY [facility] Last Admin: 05/20/18 14:13 Dose: 1 tab Nitroglycerin (Nitro-Bid 2% Paste -) 1 inch TD Q6HPO [facility] Last Admin: 05/20/18 17:54 Dose: 1 inch Pantoprazole Sodium (Protonix -) 40 mg PO DAILY [facility] Last Admin: 05/20/18 14:13 Dose: 40 mg Tamsulosin HCl (Flomax -) 0.8 mg PO DAILY@0830 [facility] Last Admin: 05/20/18 14:11 Dose: 0.8 mg Terazosin HCl (Hytrin -) 10 mg PO HS [facility] Last Admin: 05/19/18 22:45 Dose: 10 mg - Objective Vital Signs: Vital Signs Temperature 98.2 F 05/20/18 18:00 Pulse Rate 76 05/20/18 18:00 Respiratory Rate 20 05/20/18 18:00 Blood Pressure 158/78 05/20/18 18:00 O2 Sat by Pulse Oximetry (%) 98 05/20/18 00:00 Constitutional: Yes: No Distress Eyes: Yes: Conjunctiva Clear HENT: Yes: Atraumatic, Normocephalic Neck: Yes: Supple, Trachea Midline Cardiovascular: Yes: Regular Rate and Rhythm, S1, S2 Respiratory: Yes: Regular, CTA Bilaterally Gastrointestinal: Yes: Normal Bowel Sounds, Soft Edema: No Peripheral Pulses WNL: Yes Neurological: Yes: Alert, Oriented, Cran Nerves II-XII Intact Labs: CBC, BMP 05/19/18 06:20 05/19/18 06:20 INR, PTT INR 1.09 (0.82-1.09) 05/18/18 08:10 Problem List - Problems (1) Chest pain Code(s): R07.9 - CHEST PAIN, UNSPECIFIED Qualifiers: Chest pain type: unspecified Qualified Code(s): R07.9 - Chest pain, unspecified (2) Hypercholesterolemia Code(s): E78.00 - PURE HYPERCHOLESTEROLEMIA, UNSPECIFIED (3) HLD (hyperlipidemia) Code(s): E78.5 - HYPERLIPIDEMIA, UNSPECIFIED Qualifiers: Hyperlipidemia type: pure hypercholesterolemia Qualified Code(s): E78.00 - Pure hypercholesterolemia, unspecified; E78.0 - Pure hypercholesterolemia (4) Elevated troponin Code(s): R74.8 - ABNORMAL LEVELS OF OTHER SERUM ENZYMES (5) Sleep apnea Code(s): G47.30 - SLEEP APNEA, UNSPECIFIED (6) Obesity (BMI 30.0-34.9) Code(s): E66.9 - OBESITY, UNSPECIFIED (7) 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 (10) Syncope Code(s): R55 - SYNCOPE AND COLLAPSE (11) Acute NV, inferior wall, initial episode of care Code(s): I21.19 - STEMI INVOLVING OTH CORONARY ARTERY OF INFERIOR WALL (12) Hypertensive urgency Code(s): I16.0 - HYPERTENSIVE URGENCY Assessment/Plan - Problems (1) Chest pain Code(s): R07.9 - CHEST PAIN, UNSPECIFIED Qualifiers: Chest pain type: unspecified Qualified Code(s): R07.9 - Chest pain, unspecified (2) Hypercholesterolemia Code(s): E78.00 - PURE HYPERCHOLESTEROLEMIA, UNSPECIFIED (3) HLD (hyperlipidemia) Code(s): E78.5 - HYPERLIPIDEMIA, UNSPECIFIED (4) Elevated troponin Code(s): R74.8 - ABNORMAL LEVELS OF OTHER SERUM ENZYMES (5) Sleep apnea : BIPAP Code(s): G47.30 - SLEEP APNEA, UNSPECIFIED (6) Obesity (BMI 30.0-34.9) Code(s): E66.9 - OBESITY, UNSPECIFIED (7) 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 10) Inferior wall Ishchemia: For cardiac cath in AM Pt is off Cardizem BP being controlled with Losartan/ Metoprolol/Carvedelol Pt had stress test suggestive of Inferior wall ischemia spoke with Dr Sean celaya
--- NOTE | 2018-05-20 22:11 | DS ---
Physical Examination Vital Signs: Vital Signs Temperature 98.2 F 05/20/18 18:00 Pulse Rate 76 05/20/18 18:00 Respiratory Rate 20 05/20/18 18:00 Blood Pressure 158/78 05/20/18 18:00 O2 Sat by Pulse Oximetry (%) 98 05/20/18 00:00 Constitutional: Yes: Well Nourished Eyes: Yes: Conjunctiva Clear HENT: Yes: Atraumatic, Normocephalic Neck: Yes: Supple, Trachea Midline Cardiovascular: Yes: Regular Rate and Rhythm, S1, S2 Respiratory: Yes: Regular, CTA Bilaterally Gastrointestinal: Yes: Normal Bowel Sounds, Soft Edema: No Labs: CBC, BMP 05/19/18 06:20 05/19/18 06:20 Discharge Summary Reason For Visit: CHEST PAIN Current Active Problems Abnormal cardiovascular function (Acute) Acute OR, inferior wall, initial episode of care (Acute) Bilateral shoulder region arthritis (Acute) Chest pain (Acute) Elevated troponin (Acute) HLD (hyperlipidemia) (Acute) Hypercholesterolemia (Acute) Hypertensive urgency (Acute) Hypokalemia (Acute) Obesity (BMI 30.0-34.9) (Acute) Shingles (herpes zoster) polyneuropathy (Acute) Sleep apnea (Acute) Syncope (Acute) Unstable angina (Acute) Condition: Guarded - Instructions Disposition: TRANSFER ACUTE CARE/OTHER HOSP - Home Medications Comprehensive Discharge Medication List: Ambulatory Orders [place] 100 daily Potassium Chloride [K-Dur] 20 meq PO BID 12/20/12 Tamsulosin HCl 0.4 mg PO BID 12/20/12 Aspirin [ASA -] 81 mg PO DAILY 10/28/16 Amiloride HCl 5 mg PO BID 10/09/17 Albuterol Sulfate [Proair Respiclick] 90 mcg IH PRN 02/12/18 Cyclobenzaprine HCl 5 mg PO HS 02/12/18 Fluticasone Furoate [Flonase Sensimist] 5.9 ml NS PRN 02/12/18 Gabapentin [Neurontin] 300 mg PO HS 02/12/18 Terazosin HCl [Hytrin -] 10 mg PO HS 02/12/18 Atorvastatin Ca [Lipitor] 10 mg PO HS 05/18/18
[2018-05-20] MEDS: CYCLOBENZAPRINE HCL 10 MG TABLET (FP) PO SCH (22:13)
[2018-05-20] MEDS: TERAZOSIN HCL 5 MG CAPSULE PO SCH (22:17)
[2018-05-20] MEDS: GABAPENTIN 300 MG CAPSULE (FP) PO SCH (22:18)
[2018-05-20] MEDS: ATORVASTATIN CA 10 MG TABLET (FP) PO SCH (22:18)
[2018-05-20] MEDS: ACETAMINOPHEN 325 MG TABLET (FP) PO SCH (23:04)
[2018-05-21] MEDS: NITROGLYCERIN 2% OINTMENT - 1GM PACKET TD SCH ×2 (00:49→06:17)
[2018-05-21] MEDS: ACETAMINOPHEN 325 MG TABLET (FP) PO SCH ×4 (06:17→23:38)
[2018-05-21 06:49] LABS: BASO % 0.7 % (0-2.0); EOS % 4.8 % (0-4.5); HEMATOCRIT 35.2 % (35.4-49); HEMOGLOBIN 12.2 GM/dL (11.7-16.9); LYMPH % 18.2 % (8-40); MCH 29.9 pg (25.7-33.7); MCHC 34.5 g/dl (32.0-35.9); MEAN CELL VOLUME 86.5 fl (80-96); MEAN PLT VOLUME 8.3 fl (7.5-11.1); MONO % 8.9 % (3.8-10.2); NEUT % 67.4 % (42.8-82.8); PLATELET COUNT 165 K/MM3 (134-434); RBC 4.07 M/mm3 (4.00-5.60); RDW 13.7 % (11.9-15.9); WHITE BLOOD COUNT 8.5 K/mm3 (4.0-10.0)
[2018-05-21 07:04] LABS: ANION GAP 8 MMOL/L (8-16); BLOOD UREA NITROGEN 25 mg/dL (7-18); CALCIUM 8.5 mg/dL (8.5-10.1); CHLORIDE 108 mmol/L (98-107); CO2 27 mmol/L (21-32); CREATININE 1.2 mg/dL (0.55-1.3); GLUCOSE,RANDOM 132 mg/dL (74-106); POTASSIUM 3.1 mmol/L (3.5-5.1); SODIUM 143 mmol/L (136-145)
--- NOTE | 2018-05-21 09:32 | PN ---
Progress Note (short form) - Note Progress Note: Chief Complaint: Events noted, notes reviewed, denies any chest pain or dyspnea , plan to proceed with [facility]& coronary angiography, scheduled for tomorrow at [facility] History of Present Illness: Seen and examined on telemetry. Events noted, notes reviewed, denies any chest pain or dyspnea, plan to proceed with [facility]& coronary angiography, scheduled for tomorrow at [facility] 05/20/2018 MPI study moderate size inferior ischemia with small zone of infarct with LVEF 52% 05/20/2018 Echocardiography revealed normal LV size with moderate cLVH, LVEF 55- 60%, mild LAE, moderate MR, trace TR Medications: Current Medications Acetaminophen (Tylenol -) 650 mg PO Q6HPO [facility] Last Admin: 05/21/18 06:17 Dose: 650 mg Albuterol Sulfate (Ventolin Hfa Inhaler -) 2 puff IH Q4H PRN PRN Reason: SHORT OF BREATH/WHEEZING Aspirin (Asa -) 81 mg PO DAILY [facility] Last Admin: 05/21/18 09:44 Dose: 81 mg Atorvastatin Calcium (Lipitor -) 10 mg PO HS [facility] Last Admin: 05/20/18 22:18 Dose: 10 mg Carvedilol (Coreg -) 6.25 mg PO BID [facility] Last Admin: 05/21/18 09:43 Dose: 6.25 mg Clopidogrel Bisulfate (Plavix -) 75 mg PO DAILY [facility] Last Admin: 05/21/18 09:43 Dose: 75 mg Cyclobenzaprine HCl (Flexeril -) 5 mg PO HS [facility] Last Admin: 05/20/18 22:13 Dose: 5 mg Gabapentin (Neurontin -) 300 mg PO [facility] Last Admin: 05/20/18 22:18 Dose: 300 mg Losartan Potassium (Cozaar -) 100 mg PO DAILY [facility] Last Admin: 05/21/18 09:43 Dose: 100 mg Metoprolol Tartrate (Lopressor -) 50 mg PO NOW [facility] Last Admin: 05/18/18 09:30 Dose: 50 mg Multivitamins/Minerals/Vitamin C (Tab-A-Vit -) 1 tab PO DAILY [facility] Last Admin: 05/21/18 09:44 Dose: 1 tab Nitroglycerin (Nitro-Bid 2% Paste -) 1 inch TD Q6HPO [facility] Last Admin: 05/21/18 06:17 Dose: 1 inch Pantoprazole Sodium (Protonix -) 40 mg PO DAILY [facility] Last Admin: 05/21/18 09:44 Dose: 40 mg Tamsulosin HCl (Flomax -) 0.8 mg PO DAILY@0830 [facility] Last Admin: 05/21/18 09:43 Dose: 0.8 mg Terazosin HCl (Hytrin -) 10 mg PO HS [facility] Last Admin: 05/20/18 22:17 Dose: 10 mg Review of Systems - Review of Systems Constitutional: no symptoms reported Respiratory: denies Cough or Sputum Production Cardiovascular: as noted above Gastrointestinal: denies Nausea, Vomiting, Diarrhea, Constipation or Abdominal Pain Genitourinary: no symptoms reported Musculoskeletal: no symptoms reported Endocrine: no symptoms reported Vital Signs: Last Vital Signs Temp Pulse Resp BP Pulse Ox 97.5 F L 66 20 148/70 95 05/21/18 06:00 05/21/18 06:00 05/21/18 06:00 05/21/18 06:00 05/21/18 00:00 Intake & Output 05/18/18 05/19/18 05/20/18 05/21/18 23:59 23:59 23:59 23:59 Intake Total 300 300 200 Output Total 200 250 Balance 100 300 -250 200 Weight 214 lb Constitutional: No Distress, Calm Neck: Supple Negative JVD No Bruit Respiratory: Clear tp A&P Cardiovascular: S1 S2 Regular Rate Rhythm Gastrointestinal: Soft Benign Normal Bowel Sounds Ext: Negative Edema Labs: CBC, BMP 05/21/18 05:30 05/21/18 05:30 Assessment/Plan ASSESSMENT: 1. CAD post NSTEMI unstable angina with abnormal MPI study for LHC& coronary angiography 2. Probable diastolic LV dysfunction with class 0 NYHA classification LV failure 3. HTN not at goal 4. Hypercholesterolemia 5. CKD 6. Hypokalemia PLAN: 1. Continue ASA and Plavix 2. Continue Lipitor 3. Continue Carvedilol and tirate dosage as tolerated 4. Continue Cozaar 5. Continue Hytrin 6. D/C NTP and initiate Imdur and Ranexa 7. Hypokalemia correction 8. To proceed with LHC& coronary angiography tomorrow, initiate IV hydration pre -procedure, discussed in detail with the patient Cierra Figueroa M.D.
[2018-05-21] MEDS: CARVEDILOL 6.25 MG TABLET (FP) PO SCH (09:43)
[2018-05-21] MEDS: CLOPIDOGREL BISULFATE 75 MG TABLET (FP) PO SCH (09:43)
[2018-05-21] MEDS: TAMSULOSIN HCL 0.4 MG CAP.ER.24H (FP) PO SCH (09:43)
[2018-05-21] MEDS: ASPIRIN 81 MG CHEWABLE TABLETS PO SCH (09:44)
[2018-05-21] MEDS: MULTIVITAMINS (DAILY MVI) TABLET (FP) PO SCH (09:44)
[2018-05-21] MEDS: PANTOPRAZOLE 40 MG TABLET (FP) PO SCH (09:44)
[2018-05-21] MEDS ORDERED: LOSARTAN POTASSIUM 50 MG TABLET (FP) PO SCH (10:00)
[2018-05-21] MEDS ORDERED: CARVEDILOL 6.25 MG TABLET (FP) PO ONE (10:56)
[2018-05-21] MEDS ORDERED: POTASSIUM CHLORIDE TABS 20 MEQ TABLET.ER (FP) PO ONE (10:58)
[2018-05-21] MEDS ORDERED: ISOSORBIDE MONONITRATE 30 MG TAB.SR.24H (FP) PO SCH (11:00)
[2018-05-21] MEDS ORDERED: CARVEDILOL 12.5 MG TABLET (FP) PO SCH (11:00)
[2018-05-21] MEDS: KCL 10 MEQ IVPB 10 MEQ/100 ML INFUS.BAG IVPB SCH ×2 (11:53→12:55)
[2018-05-21] MEDS: RANOLAZINE E.R. 500 MG TABLET (FP) PO SCH ×2 (11:53→21:42)
[2018-05-21] MEDS: SODIUM CHLORIDE 1,000 ML IV SCH (11:53)
[2018-05-21] MEDS ORDERED: PT OWN MED DRAWER 7, Y5N ONE (20:34)
[2018-05-21] MEDS: CYCLOBENZAPRINE HCL 10 MG TABLET (FP) PO SCH (21:39)
[2018-05-21] MEDS: ATORVASTATIN CA 10 MG TABLET (FP) PO SCH (21:41)
[2018-05-21] MEDS: TERAZOSIN HCL 5 MG CAPSULE PO SCH (21:41)
[2018-05-21] MEDS: GABAPENTIN 300 MG CAPSULE (FP) PO SCH (21:42)
[2018-05-22 00:23] LABS: URINE APPEARANCE CLEAR; URINE BILIRUBIN NEGATIVE (<2.0 mg/dL); URINE COLOR YELLOW; URINE GLUCOSE (UA) NEGATIVE (NEGATIVE); URINE KETONE NEGATIVE (NEGATIVE); URINE LEUK ESTERASE NEGATIVE (NEGATIVE); URINE NITRITE NEGATIVE (NEGATIVE); URINE UROBILINOGEN NEGATIVE mg/dL (0.2-1.0)
[2018-05-22 00:26] LABS: URINE PROTEIN 1+ (NEGATIVE)
[2018-05-22 00:29] LABS: EPI CELLS RARE /HPF (FEW); URINE BACTERIA MANY /hpf (NONE SEEN); URINE MUCUS RARE
[2018-05-22] MEDS: SODIUM CHLORIDE 1,000 ML IV SCH (02:00)
[2018-05-22] MEDS: ACETAMINOPHEN 325 MG TABLET (FP) PO SCH (06:00)
[2018-05-22 07:52] LABS: BASO % 0.6 % (0-2.0); EOS % 4.9 % (0-4.5); HEMATOCRIT 33.2 % (35.4-49); HEMOGLOBIN 11.4 GM/dL (11.7-16.9); LYMPH % 19.3 % (8-40); MCH 29.9 pg (25.7-33.7); MCHC 34.4 g/dl (32.0-35.9); MEAN CELL VOLUME 86.7 fl (80-96); MEAN PLT VOLUME 8.4 fl (7.5-11.1); MONO % 10.2 % (3.8-10.2); PLATELET COUNT 148 K/MM3 (134-434); RBC 3.83 M/mm3 (4.00-5.60); RDW 13.6 % (11.9-15.9); WHITE BLOOD COUNT 7.5 K/mm3 (4.0-10.0)
[2018-05-22] MEDS: TAMSULOSIN HCL 0.4 MG CAP.ER.24H (FP) PO SCH (08:07)
[2018-05-22 08:25] LABS: ANION GAP 11 MMOL/L (8-16); BLOOD UREA NITROGEN 20 mg/dL (7-18); CALCIUM 7.7 mg/dL (8.5-10.1); CHLORIDE 110 mmol/L (98-107); CO2 26 mmol/L (21-32); GLUCOSE,RANDOM 120 mg/dL (74-106); POTASSIUM 3.2 mmol/L (3.5-5.1); SODIUM 147 mmol/L (136-145)
[2018-05-22 11:09] VITALS: BP 152/83; PULSE 72; TEMP 97.9
--- NOTE | 2018-05-22 17:13 | PN ---
Progress Note (short form) - Note Progress Note: LHC performed at [facility] for [place]/NSTEMI and moderate inferior ischemia. 2 vessel CAD 90-95% ostial LCx-OM (medium sized vessel) left alone, 90-95% prox RCA which was treated with implant Resolute [place] 4.0x18 mm FISH post-dilated with NC 4.5x15 balloon @ 14 SARAHY, normal LV fxn LVEF 65-70% with elevated LVEDP 27 mmHg, no aortic stenosis. 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 Recommend optimal medical therapy for secondary prevention of cardiovascular disease, consider PCI of LCx-OM if remains symptomatic despite meds, patient is candidate for cardiac rehab. Problem List - Problems (1) Unstable angina Code(s): I20.0 - UNSTABLE ANGINA (2) Abnormal cardiovascular function Code(s): R94.30 - ABNORMAL RESULT OF CARDIOVASCULAR FUNCTION STUDY, UNSP (3) Elevated troponin Code(s): R74.8 - ABNORMAL LEVELS OF OTHER SERUM ENZYMES (4) HLD (hyperlipidemia) Code(s): E78.5 - HYPERLIPIDEMIA, UNSPECIFIED Qualifiers: Hyperlipidemia type: pure hypercholesterolemia Qualified Code(s): E78.00 - Pure hypercholesterolemia, unspecified; E78.0 - Pure hypercholesterolemia (5) Hypertensive urgency Code(s): I16.0 - HYPERTENSIVE URGENCY (6) Hypokalemia Code(s): E87.6 - HYPOKALEMIA
== END 2018-05-22 09:33 | disposition short-term general hospital (02) | DRG 281 ==
LOC: FER 01:05 → FM/S 03:54 → J4W 11:30 → OBSVTOIN 05-20 15:45
PROVIDERS: ADMIT Internal Medicine; ATTEND Internal Medicine
DX: I21.4 Non-ST elevation (NSTEMI) myocardial infarction (principal); B02.23 Postherpetic polyneuropathy; E78.5 Hyperlipidemia, unspecified; N40.0 Benign prostatic hyperplasia without lower urinary tract symptoms; G47.30 Sleep apnea, unspecified; J42 Unspecified chronic bronchitis; I25.10 Atherosclerotic heart disease of native coronary artery without angina pectoris; R74.8 Abnormal levels of other serum enzymes; M19.011 Primary osteoarthritis, right shoulder; M19.012 Primary osteoarthritis, left shoulder; E87.6 Hypokalemia; E66.9 Obesity, unspecified; Z68.29 Body mass index [BMI] 29.0-29.9, adult; I45.10 Unspecified right bundle-branch block; R55 Syncope and collapse; I25.110 Atherosclerotic heart disease of native coronary artery with unstable angina pectoris
CPT/HCPCS: 36415; 71045-TC-FY; 78452-TC; 80048; 80053; 80061; 81003; 81015; 82550; 83036; 83735; 84100; 84484; 85025; 85610; 93005; 93010; 93017; 93306-TC; 99283-25; A9502; G0378; J2785; J7030

== ENCOUNTER 2018-11-05 07:05 | Emergency (ER) | payer OTHER, BC ==
[2018-11-05 07:09] VITALS: TEMP 98.3; BMI 29.9
[2018-11-05] MEDS ORDERED: IBUPROFEN 600 MG TABLET (FP) PO ONE ×2 (07:45→08:00)
[2018-11-05] MEDS ORDERED: traMADol HCL 50 MG TABLET PO ONE (07:45)
[2018-11-05] MEDS ORDERED: traMADol HCL 50 MG TABLET ONE (08:00)
--- NOTE | 2018-11-05 08:04 | PDOC ---
History of Present Illness - General Chief Complaint: Pain, Acute Stated Complaint: LOWER BACK PAIN Time Seen by Provider: 11/05/18 07:14 History Source: Patient, Old Records (xray/mri/ed visit -10/2017) Exam Limitations: No Limitations - History of Present Illness Initial Comments: 11/05/18 08:01 High functioning 73-year-old male with history of hypertension, CAD status post stent, history of shingles in the right low back last year presents with left low back pain for about one week. Unprompted without history of fall or injury, sharp pain initially localized to the left low back and now radiating down the left leg to his toes for the last 4-5 days, associated with some paresthesias but no weakness or bowel or bladder issues. No fevers or chills, has remained ambulatory but started using a cane secondary to the discomfort, no weight loss or night sweats. 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 Patient states he was seen last year for back pain, saw Dr. Jimenez and had an MRI. Past History - Past Medical History Allergies/Adverse Reactions: Allergies Allergy/AdvReac Type Severity Reaction Status Date / Time codeine [Codeine] Allergy Verified 11/05/18 07:06 Penicillins Allergy Verified 11/05/18 07:06 Home Medications: Ambulatory Orders Amlodipine Besylate [Norvasc -] 5 mg PO BID 11/05/18 Aspirin [ASA -] 81 mg PO DAILY 11/05/18 Atorvastatin Ca [Lipitor] 80 mg PO HS 11/05/18 Carvedilol [Coreg -] 12.5 mg PO BID 11/05/18 Clopidogrel Bisulfate [Plavix] 75 mg PO DAILY 11/05/18 Gabapentin 100 mg PO DAILY 11/05/18 Losartan Potassium [Cozaar] 100 mg PO DAILY 11/05/18 Potassium Chloride [Klor-Con M20] 20 meq PO DAILY 11/05/18 Tamsulosin HCl [Flomax] 0.8 mg PO DAILY 11/05/18 Terazosin HCl [Hytrin -] 10 mg PO DAILY 11/05/18 Tramadol HCl 25 mg PO BID PRN #7 tablet MDD 2 tabs 11/05/18 Anemia: No Asthma: Yes Cancer: No Cardiac Disorders: Yes (MVP,STENT) CVA: No COPD: No CHF: No DVT: No Dementia: No Diabetes: No GI Disorders: Yes (DIVERTICULITIS,DIVERTICULOSIS,HEMORRHOIDS) Disorders: Yes (bph) HTN: Yes Hypercholesterolemia: Yes Liver Disease: No Seizures: No Thyroid Disease: No - Surgical History Abdominal Surgery: No Appendectomy: Yes (COLONOSCOPY) Cardiac Surgery: Yes (STENT) Cholecystectomy: No Lung Surgery: No Neurologic Surgery: No Orthopedic Surgery: No - Suicide/Smoking/Psychosocial Hx Smoking History: Never smoked Have you smoked in the past 12 months: No Hx Alcohol Use: No Drug/Substance Use Hx: No Substance Use Type: None Hx Substance Use Treatment: No Review of Systems - Review of Systems Constitutional: No: Chills, Fever, Night Sweats, Unintentional Wgt. Loss Respiratory: No: Shortness of Breath Cardiac (ROS): No: Edema : No: Burning, Dysuria, Flank Pain, Hematuria, Incontinence Musculoskeletal: Yes: Back Pain. No: Joint Pain Integumentary: No: Symptoms Reported Neurological: Yes: Paresthesia. No: Weakness, Ataxia All Other Systems: Reviewed and Negative *Physical Exam - Vital Signs Last Vital Signs Temp Pulse Resp BP Pulse Ox 98.3 F 72 16 195/86 H 98 11/05/18 07:06 11/05/18 07:06 11/05/18 07:06 11/05/18 07:06 11/05/18 07:06 - Physical Exam Comments: 11/05/18 08:04 GENERAL: The patient is awake, alert, and fully oriented, in no acute distress. Ambulated into the ED steadily on his own. HEAD: Normal with no signs of trauma. EYES: PERRL, EOMI. ENT: Moist mucous membranes. NECK: Normal range of motion, supple without masses. ABDOMEN: Soft/nontender/nondistended. BS wnl. No guarding or rebound. No palpable masses. No hepatosplenomegaly. No palpable masses. EXTREMITIES: Mild midline spine discomfort to palpation over lower lumbar region. Skin normal. Normal range of motion, no edema. 2+ distal pulses. No cords, erythema, or tenderness. NEUROLOGICAL: Cranial nerves II through XII grossly intact. 5/5 flexion/ extension b/l hips/knees/ankles/toes. Normal speech, slightly antalgic gait. PSYCH: Normal mood, normal affect. SKIN: Warm, Dry, no rashes or lesions noted. Moderate Sedation - Procedure Monitoring Vital Signs: Procedure Monitoring Vital Signs Temperature 98.3 F 11/05/18 07:06 Pulse Rate 72 11/05/18 07:06 Respiratory Rate 16 11/05/18 07:06 Blood Pressure 195/86 H 11/05/18 07:06 O2 Sat by Pulse Oximetry (%) 98 11/05/18 07:06 ED Treatment Course - RADIOLOGY Radiology Studies Ordered: Category Date Time Status SPINE-LUMBAR SACRAL [RAD] Stat Radiology 11/05/18 07:45 Ordered Medical Decision Making - Medical Decision Making 11/05/18 08:03 73-year-old male presents with atraumatic left low back pain with radiating left lower extremity pain consistent with lumbar radiculopathy without motor compromise. No evidence of cord compression, neurovascularly intact. Check lumbar spine x-ray given age, imaging from one year ago did not reveal any concerning bony abnormalities On review of the MRI report from 2018, the patient did have L4/L5 and L5/S1 disc herniation with nerve root impingement, and this is likely the cause of his presentation. Pain control, states that no relief from lidocaine patches in the past Reassess, if symptoms improved can follow-up with Dr. Jimenez. 11/05/18 09:50 On my preliminary review, there is no obvious bony abnormality on LS x-ray. Patient feels much better, able to stand and ambulate comfortably. The paresthesias have resolved, he has only slight localized left low back pain. We'll discharge to follow-up with Dr. jimenez, understands return criteria. *DC/Admit/Observation/Transfer Diagnosis at time of Disposition: Lumbar radiculopathy - Discharge Dispostion Disposition: HOME Condition at time of disposition: Improved - Prescriptions Prescriptions: Tramadol HCl 25 mg PO BID PRN #7 tablet MDD 2 tabs PRN Reason: Pain - Referrals Referrals: Sebastian Arriaga MD [Primary Care Provider] - Poncho Jimenez MD [Staff Physician] - - Patient Instructions Printed Discharge Instructions: DI for Lumbar Radiculopathy Additional Instructions: Activity as tolerated, avoiding bedrest and heavy lefting. Stay hydrated. Tylenol 1000 mg every 8 hours and/or ibuprofen 600 mg daily as needed for pain. Tramadol as prescribed as needed for severe pain (consider taking 1/2 pill). Tramadol can make you lightheaded, so take proper precautions. Consider trying the [id number] Lidocaine patches if the tramadol side effects are too strong. Continue your medications as previously prescribed by your physician. You should follow up with your primary doctor and Dr. Jimenez as soon as possible regarding today's emergency department visit. Return to the emergency department for any new or concerning symptoms, particularly persistent or worsening pain, leg weakness, bowel/bladder issues. - Post Discharge Activity
[2018-11-05 08:48] VITALS: PULSE 57
[2018-11-05] MEDS ORDERED: amLODIPine BESYLATE 5 MG TABLET (FP) PO ONE (08:49)
[2018-11-05] MEDS ORDERED: amLODIPine BESYLATE 5 MG TABLET (FP) ONE (08:51)
[2018-11-05 09:56] VITALS: BP 189/89
== END 2018-11-05 10:10 | disposition home or self-care (01) ==
LOC: FER 07:05
DX: M54.16 Radiculopathy, lumbar region (principal); Z95.5 Presence of coronary angioplasty implant and graft; I10 Essential (primary) hypertension; N40.0 Benign prostatic hyperplasia without lower urinary tract symptoms; E78.00 Pure hypercholesterolemia, unspecified
CPT/HCPCS: 72100-TC-FY; 99282-25

== ENCOUNTER 2019-05-20 23:03 | Emergency (ER) | payer OTHER, BC ==
--- NOTE | 2019-05-20 23:10 | PDOC ---
History of Present Illness - General Chief Complaint: Hematuria Stated Complaint: BLOOD IN URINE Time Seen by Provider: 05/20/19 23:09 - History of Present Illness Initial Comments: This 73 y.o man with a history of CAD,HTN, chronic back pain, BPH presents with a 1 day history of pain with urination and intermittent hematuria. He first noted burning discomfort while urinating early this afternoon. He then noted a small amount of blood (no clots)in his urine this evening along with a sensation of not fully emptying his bladder. When he presented to the ER, hematuria and sense of urinary retention resolved. He denies fever/chills/nausea /vomiting/back pain(other than his usual chronic back discomfort). He thinks he may have had a UTI "years ago". Medications as noted below Allergies: Codeine/ Penicillin Past History - Past Medical History Allergies/Adverse Reactions: Allergies Allergy/AdvReac Type Severity Reaction Status Date / Time codeine [Codeine] Allergy Verified 05/20/19 23:06 Penicillins Allergy Verified 05/20/19 23:06 Home Medications: Ambulatory Orders Amlodipine Besylate [Norvasc -] 5 mg PO BID 11/05/18 Aspirin [ASA -] 81 mg PO DAILY 11/05/18 Atorvastatin Ca [Lipitor] 80 mg PO HS 11/05/18 Carvedilol [Coreg -] 12.5 mg PO BID 11/05/18 Clopidogrel Bisulfate [Plavix] 75 mg PO DAILY 11/05/18 Gabapentin 100 mg PO DAILY 11/05/18 Losartan Potassium [Cozaar] 100 mg PO DAILY 11/05/18 Potassium Chloride [Klor-Con M20] 20 meq PO DAILY 11/05/18 Tamsulosin HCl [Flomax] 0.8 mg PO DAILY 11/05/18 Terazosin HCl [Hytrin -] 10 mg PO DAILY 11/05/18 Tramadol HCl 25 mg PO BID PRN #7 tablet MDD 2 tabs 11/05/18 Ciprofloxacin HCl [Cipro] 500 mg PO BID #14 tablet 05/21/19 Anemia: No Asthma: Yes Cancer: No Cardiac Disorders: Yes (MVP,STENT) CVA: No COPD: No CHF: No DVT: No Dementia: No Diabetes: No GI Disorders: Yes (DIVERTICULITIS,DIVERTICULOSIS,HEMORRHOIDS) Disorders: Yes (bph) HTN: Yes Hypercholesterolemia: Yes Liver Disease: No Seizures: No Thyroid Disease: No - Surgical History Abdominal Surgery: No Appendectomy: Yes (COLONOSCOPY) Cardiac Surgery: Yes (STENT) Cholecystectomy: No Lung Surgery: No Neurologic Surgery: No Orthopedic Surgery: No - Psycho Social/Smoking Cessation Hx Smoking History: Never smoked Have you smoked in the past 12 months: No Hx Alcohol Use: No Drug/Substance Use Hx: No Substance Use Type: None Hx Substance Use Treatment: No ED Progress Note - Progress Note Progress Note: Urinalysis performed: microscopic positive for 10-20RBC/0-2WBC/few bacteria Urine culture and sensitivity sent. Because of the patient's dysuria and hx of BPH, will empirically treat for UTI. The patient believes he has taken Cipro previously without issues. First dose of Cipro 500 mg PO given to the patient. He should drink plenty of water and return to the ER if he has more severe pain, persistent sensation of urinary retention or develops fever/ chills/ vomiting. Meanwhile, the patient will followup with Dr Stock(his 's urologist) . He should call the office in the AM and arrange followup within 1-2 days Discharge - Discharge Information Problems reviewed: Yes Clinical Impression/Diagnosis: Dysuria Condition: Stable Disposition: HOME - Additional Discharge Information Prescriptions: Ciprofloxacin HCl [Cipro] 500 mg PO BID #14 tablet - Follow up/Referral Referrals: Lei Stock MD [Staff Physician] - Call tomorrow - Patient Discharge Instructions Patient Printed Discharge Instructions: DI for Urinary Tract Infection (UTI) Additional Instructions: drink plenty of water continue your medications as prescribed Cipro 500mg twice a day call Dr Stock's office tomorrow and arrange followup within the next 2-3 days return to ER if you have severe pain/fever/vomiting followup with your general medical doctor within 1 week - Post Discharge Activity
[2019-05-20 23:23] VITALS: PULSE 64; TEMP 98; BMI 31.5
[2019-05-21] MEDS ORDERED: CIPROFLOXACIN 500 MG TABLET (RESTRICTED TO ID) PO ONE (00:04)
[2019-05-21] MEDS ORDERED: CIPROFLOXACIN 250 MG TABLET (RESTRICTED TO ID) PO ONE (00:08)
[2019-05-21 00:21] VITALS: BP 220/99
== END 2019-05-21 00:24 | disposition home or self-care (01) ==
LOC: FER 23:03
DX: R30.0 Dysuria (principal); N40.0 Benign prostatic hyperplasia without lower urinary tract symptoms; I10 Essential (primary) hypertension; E78.00 Pure hypercholesterolemia, unspecified; Z95.5 Presence of coronary angioplasty implant and graft; I34.1 Nonrheumatic mitral (valve) prolapse; K57.92 Diverticulitis of intestine, part unspecified, without perforation or abscess without bleeding; I25.10 Atherosclerotic heart disease of native coronary artery without angina pectoris; G89.29 Other chronic pain; Z88.0 Allergy status to penicillin; Z88.5 Allergy status to narcotic agent
CPT/HCPCS: 81003; 81015; 87086; 99281-25

== ENCOUNTER 2019-09-25 13:03 | Inpatient (IN) | payer OTHER, BC ==
--- NOTE | 2019-09-25 13:13 | PDOC ---
Rapid Medical Evaluation Chief Complaint: Respiratory Time Seen by Provider: 09/25/19 13:08 Medical Evaluation: Allergies Allergy/AdvReac Type Severity Reaction Status Date / Time codeine [Codeine] Allergy Verified 05/20/19 23:06 Penicillins Allergy Verified 05/20/19 23:06 09/25/19 13:08 I have performed a brief in-person evaluation of this patient. The patient presents with a chief complaint of: sent from for SOB/need for IV Steroids- PMD wishes IV steroids Pertinent physical exam findings: CXR clear/ Labs WNL from / medicated with Prednisone 60mg @11AM. Coarse deep rales/ rhonchi bilateral with moist cough, I have ordered the following: CXR, EKG, CBC/ SMA The patient will proceed to the ED for further evaluation.
--- NOTE | 2019-09-25 13:23 | PDOC ---
History of Present Illness - General Chief Complaint: Respiratory Stated Complaint: SENT BY PCP Time Seen by Provider: 09/25/19 13:08 - History of Present Illness Initial Comments: HPI: 73yo M with PMH of CAD s/p stent, ?asthma, DM, KENN presenting with shortness of breath. Patient states he started feeling this way last night. He has also had a cough productive of white-silva sputum. Denies sick contacts or recent travel. Went to an urgent cre today and given two breathing treatments as well as 60mg prednisone with minimal relief. Per urgent care paperwork, the PCP was contacts and "wants pt to go to ER iv steroids and closer monitoring." Feels generalized weakness. Reports fever of 99 and chills. PCP: Dr. Nay Arriaga ROS: Constitutional: +fever, +chills HEENT: no throat pain, no dysphagia Cardiovascular: no chest pain, no palpitations Respiratory: +cough, +shortness of breath Gastrointestinal: no abdominal pain, no nausea Genitourinary: no dysuria, no hematuria Musculoskeletal: no myalgia, no arthralgia Skin: no rash, no itching Neurologic: no headache, +weakness Psych: no agitation, no anxiety PE: General: Awake, alert, and fully oriented, in no acute distress Head: No signs of trauma Eyes: EOMI, sclera anicteric ENT: Moist mucus membranes Neck: Normal ROM, supple Lungs: Diffuse rales bilaterally Cardio: Regular rhythm, S1 and S2 present Abdomen: Soft, nontender Extremities: Normal range of motion, Distal pulses present. No calf tenderness SKIN: Warm, Dry, normal turgor Neurologic: Cranial nerves II through XII grossly intact. Normal speech ED Course/MDM: DDX including but not limited to ACS, PE, PNA, anemia, metabolic derangement Labs, EKG, CXR Duoneb Solu-medrol Azithromycin 09/25/19 13:23 CBC WBC 6.3 K/mm3 (4.0-10.0) 09/25/19 13:30 RBC 4.21 M/mm3 (4.00-5.60) 09/25/19 13:30 Hgb 12.8 GM/dL (11.7-16.9) 09/25/19 13:30 Hct 36.8 % (35.4-49) 09/25/19 13:30 MCV 87.3 fl (80-96) 09/25/19 13:30 MCH 30.4 pg (25.7-33.7) 09/25/19 13:30 MCHC 34.8 g/dl (32.0-35.9) 09/25/19 13:30 RDW 15.4 % (11.9-15.9) D 09/25/19 13:30 Plt Count 165 K/MM3 (134-434) 09/25/19 13:30 MPV 8.2 fl (7.5-11.1) 09/25/19 13:30 Absolute Neuts (auto) 5.3 K/mm3 (1.5-8.0) 09/25/19 13:30 Neutrophils % 83.2 % (42.8-82.8) H D 09/25/19 13:30 Lymphocytes % 9.8 % (8-40) D 09/25/19 13:30 Monocytes % 4.2 % (3.8-10.2) 09/25/19 13:30 Eosinophils % 2.4 % (0-4.5) 09/25/19 13:30 Basophils % 0.4 % (0-2.0) 09/25/19 13:30 Nucleated RBC % 0 % (0-0) 09/25/19 13:30 No leukocytosis CMP Sodium 140 mmol/L (136-145) 09/25/19 13:28 Potassium 3.8 mmol/L (3.5-5.1) 09/25/19 13:28 Chloride 104 mmol/L (98-107) 09/25/19 13:28 Carbon Dioxide 30 mmol/L (21-32) 09/25/19 13:28 Anion Gap 6 MMOL/L (8-16) L 09/25/19 13:28 BUN 17.9 mg/dL (7-18) 09/25/19 13:28 Creatinine 1.5 mg/dL (0.55-1.3) H 09/25/19 13:28 Est GFR (CKD-EPI)AfAm 52.40 09/25/19 13:28 Est GFR (CKD-EPI)NonAf 45.21 09/25/19 13:28 Random Glucose 208 mg/dL (74-106) H 09/25/19 13:28 Calcium 9.4 mg/dL (8.5-10.1) 09/25/19 13:28 Total Bilirubin 1.0 mg/dL (0.2-1) 09/25/19 13:28 AST 18 U/L (15-37) 09/25/19 13:28 ALT 30 U/L (13-61) 09/25/19 13:28 Alkaline Phosphatase 91 U/L (45-117) 09/25/19 13:28 Troponin I < 0.02 ng/ml (0.00-0.05) 09/25/19 13:28 Total Protein 7.7 g/dl (6.4-8.2) 09/25/19 13:28 Albumin 3.9 g/dl (3.4-5.0) 09/25/19 13:28 Electrolytes unremkarkable Cr elevated No transaminitis Tpn undetectable EKG: rate 80, Qtc 477, sinus, RBBB also present on EKG 05/20/18 Still satting 90/91 on room air Plan for admission as SaO2 5% below baseline in patient with new requirement for supplemental oxygen to keep SaO2 at baseline 09/25/19 16:28 CXR as reported by radiology: " EXAM#: TYPE/EXAM: RESULT: [id number] RAD/CHEST PA LAT Chest: Cough. Single view of the chest reveals to chin artifact, normal heart, aorta, prominent right hilar markings and clear lung conrad with no sign of infiltrate or failure. There may be some minimal atelectasis at the left base. There are granulomatous changes in the right upper lobe. There are degenerative findings. Since 05/18/2018, the atelectasis at the left base has become apparent. Correlation recommended. Reported By: Lei Coffey MD 09/25/19 [id number] " Discussed case with Dr. Roman who accepted patient for admission under Dr. Zaman 09/25/19 17:37 Past History - Past Medical History Allergies/Adverse Reactions: Allergies Allergy/AdvReac Type Severity Reaction Status Date / Time codeine [Codeine] Allergy Verified 05/20/19 23:06 Penicillins Allergy Verified 05/20/19 23:06 Home Medications: Ambulatory Orders Aspirin [ASA -] 81 mg PO DAILY 11/05/18 Clopidogrel Bisulfate [Plavix] 75 mg PO DAILY 11/05/18 Potassium Chloride [Klor-Con M20] 20 meq PO DAILY 11/05/18 Tamsulosin HCl [Flomax] 0.8 mg PO DAILY 11/05/18 Albuterol Sulfate [Proair Hfa] 8.5 gm IH PRN 09/25/19 Amlodipine Besylate 10 mg PO DAILY 09/25/19 Atorvastatin Ca [Lipitor] 80 mg PO HS 09/25/19 Benzonatate [Tessalon Perle -] 100 mg PO PRN 09/25/19 Carvedilol [Coreg -] 12.5 mg PO DAILY 09/25/19 Furosemide 40 mg PO DAILY 09/25/19 Gabapentin 400 mg PO TID 09/25/19 Glipizide 5 mg PO DAILY 09/25/19 Losartan Potassium 25 mg PO DAILY 09/25/19 Salmeterol/Fluticasone [Advair 100Mcg/50Mcg -] 1 inh PO BID 09/25/19 Torsemide 20 mg PO 20 09/25/19 Umeclidinium Brm/Vilanterol Tr [Anoro Ellipta 62.5-25 Mcg INH] 1 each IH DAILY 09/25/19 Anemia: No Asthma: Yes Cancer: No Cardiac Disorders: Yes (MVP,STENT) CVA: No COPD: No CHF: No DVT: No Dementia: No Diabetes: No GI Disorders: Yes (DIVERTICULITIS,DIVERTICULOSIS,HEMORRHOIDS) Disorders: Yes (bph) HTN: Yes Hypercholesterolemia: Yes Liver Disease: No Seizures: No Thyroid Disease: No - Surgical History Abdominal Surgery: No Appendectomy: Yes (COLONOSCOPY) Cardiac Surgery: Yes (STENT) Cholecystectomy: No Lung Surgery: No Neurologic Surgery: No Orthopedic Surgery: No - Immunization History Immunization Up to Date: No - Psycho Social/Smoking Cessation Hx Smoking History: Never smoked Have you smoked in the past 12 months: No Information on smoking cessation initiated: No Hx Alcohol Use: No Drug/Substance Use Hx: No Substance Use Type: None Hx Substance Use Treatment: No *Physical Exam - Vital Signs Last Vital Signs Temp Pulse Resp BP Pulse Ox 99.2 F 81 16 150/67 92 L 09/25/19 13:10 09/25/19 13:10 09/25/19 13:10 09/25/19 13:10 09/25/19 13:10 ED Treatment Course - LABORATORY CBC & Chemistry Diagram: 09/25/19 13:30 09/25/19 13:28 Discharge - Discharge Information Problems reviewed: Yes Clinical Impression/Diagnosis: Shortness of breath, Hypoxia Condition: Guarded - Admission Yes - Follow up/Referral - Patient Discharge Instructions - Post Discharge Activity
[2019-09-25 14:00] LABS: BASO % 0.4 % (0-2.0); EOS % 2.4 % (0-4.5); HEMATOCRIT 36.8 % (35.4-49); HEMOGLOBIN 12.8 GM/dL (11.7-16.9); LYMPH % 9.8 % (8-40); MCH 30.4 pg (25.7-33.7); MCHC 34.8 g/dl (32.0-35.9); MEAN CELL VOLUME 87.3 fl (80-96); MEAN PLT VOLUME 8.2 fl (7.5-11.1); MONO % 4.2 % (3.8-10.2); NEUT % 83.2 % (42.8-82.8); PLATELET COUNT 165 K/MM3 (134-434); RBC 4.21 M/mm3 (4.00-5.60); RDW 15.4 % (11.9-15.9); WHITE BLOOD COUNT 6.3 K/mm3 (4.0-10.0)
[2019-09-25] MEDS ORDERED: ALBUTEROL SO4 2.5/IPRATROPIUM 0.5 INH SOL 3 ML VIAL.NEB. NEB ONE ×2 (14:31→14:45)
[2019-09-25 14:45] LABS: ALBUMIN 3.9 g/dl (3.4-5.0); ALK PHOS 91 U/L (45-117); ANION GAP 6 MMOL/L (8-16); BLOOD UREA NITROGEN 17.9 mg/dL (7-18); CALCIUM 9.4 mg/dL (8.5-10.1); CHLORIDE 104 mmol/L (98-107); CO2 30 mmol/L (21-32); CREATININE 1.5 mg/dL (0.55-1.3); GLUCOSE,RANDOM 208 mg/dL (74-106); POTASSIUM 3.8 mmol/L (3.5-5.1); SGOT/AST 18 U/L (15-37); SGPT/ALT 30 U/L (13-61); SODIUM 140 mmol/L (136-145); TOT PROT 7.7 g/dl (6.4-8.2)
--- NOTE | 2019-09-25 14:52 | PDOC ---
Attending Attestation - Resident Resident Name: Zuly Guthrie - ED Attending Attestation I have performed the following: I have examined & evaluated the patient, The case was reviewed & discussed with the resident, I agree w/resident's findings & plan, Exceptions are as noted - HPI HPI: 09/25/19 19:22 73 years old past medical history significant for CAD status post stent asthma diabetes obstructive sleep apnea presents with difficulty breathing - Physicial Exam PE: 09/25/19 19:22 Vitals: Triage Vital signs reviewed General Appearance: No acute distress, well nourished well developed, Cardiac: Regular rate and rhythym, systolic ejection murmur Lungs: Coarse breath sounds bilaterally, wheezing bilaterally Abdomen: Soft, non distended, normal bowel sounds, non tender to palpation Psych: Normal mood, normal affect - Medical Decision Making 09/25/19 19:24 History and examination consistent with COPD exacerbation secondary to URI Patient received steroids nebs and observe No improvement after steroids and nebs Patient will require supplemental oxygen continued steroids nebs and admission for further management.
[2019-09-25] MEDS ORDERED: methylPREDNISolone NA SUCC 125 MG/2 ML VIAL IVPUSH ONE (14:57)
[2019-09-25] MEDS ORDERED: methylPREDNISolone NA SUCC 125 MG/2 ML VIAL ONE (16:19)
[2019-09-25] MEDS ORDERED: ALBUTEROL SO4 0.083% IH SOL 2.5 MG/3 ML VIAL.NEB. NEB PRN (17:37)
--- NOTE | 2019-09-25 17:41 | HP ---
CHIEF COMPLAINT: sob PCP: Dr. Nay Arriaga HISTORY OF PRESENT ILLNESS: 73yo M with PMH of CAD s/p stent, ?asthma, DM, KENN presenting with worsening sob and cough over the last few days. He says his cough is productive of white- silva sputum. He also says he had a fever and chills yesterday. Per patient, he went to the urgent care, was given steroids, breathing treatments, and was sent to the ER. Patient denies recent illness. He denied asthma/copd, but says he follows Dr. Ambrosio who prescribed him multiple medications. Patient says he gets sob when walking up 2 flight of stairs. Denies orthopnea. Admits to worsening LE edema. Sleeps with a CPAP at night. He says he sees Dr. Arguello outpatient and had an echo done yesterday. He denies chest pain, nausea, vomiting, palpitations, runny nose, diarrhea, urinary symptoms. ER course was notable for: (1) IV Medrol 125mg, duoneb (2) CXR: minimal atelectasis at the left base, granulomatous chronic changes Recent Travel: denies PAST MEDICAL HISTORY: per hpi Social History: Smoking: denies Alcohol: denies Drugs: denies Allergies codeine [Codeine] Allergy (Verified 05/20/19 23:06) Penicillins Allergy (Verified 05/20/19 23:06) HOME MEDICATIONS: Home Medications Medication Instructions Recorded Aspirin [ASA -] 81 mg PO DAILY 11/05/18 Clopidogrel Bisulfate [Plavix] 75 mg PO DAILY 11/05/18 Potassium Chloride [Klor-Con M20] 20 meq PO DAILY 11/05/18 Tamsulosin HCl [Flomax] 0.8 mg PO DAILY 11/05/18 Albuterol Sulfate [Proair Hfa] 8.5 gm IH PRN 09/25/19 Amlodipine Besylate 10 mg PO DAILY 09/25/19 Benzonatate [Tessalon Perle -] 100 mg PO PRN 09/25/19 Furosemide 40 mg PO DAILY 09/25/19 Gabapentin 400 mg PO TID 09/25/19 Glipizide 5 mg PO DAILY 09/25/19 Salmeterol/Fluticasone [Advair 1 inh PO BID 09/25/19 100Mcg/50Mcg -] Umeclidinium Brm/Vilanterol Tr 1 each IH DAILY 09/25/19 [Anoro Ellipta 62.5-25 Mcg INH] REVIEW OF SYSTEMS per hpi PHYSICAL EXAMINATION Vital Signs - 24 hr 09/25/19 09/25/19 13:10 13:35 Temperature 99.2 F Pulse Rate 81 Respiratory 16 Rate Blood Pressure 150/67 O2 Sat by Pulse 92 L 90 L Oximetry (%) GENERAL: a/o x 3, comfortable on o2 EYES: Pupils equal, round and reactive to light, extraocular movements intact, sclera anicteric, conjunctiva clear. No lid lag. EARS, NOSE, THROAT: oropharynx clear without exudates. Moist mucous membranes. NECK: supple without lymphadenopathy, JVD, or masses. LUNGS:course breath sounds, no wheezing appreciated HEART: RRR, no MGR ABDOMEN: obese, Soft, nontender, not distended, normoactive bowel sounds LOWER EXTREMITIES: 2+ pulses, warm, +pitting edema NEUROLOGICAL: Cranial nerves II-XII intact. Normal speech. Laboratory Results - last 24 hr 09/25/19 09/25/19 09/25/19 13:28 13:30 13:30 WBC 6.3 RBC 4.21 Hgb 12.8 Hct 36.8 MCV 87.3 MCH 30.4 MCHC 34.8 RDW 15.4 D Plt Count 165 MPV 8.2 Absolute Neuts (auto) 5.3 Neutrophils % 83.2 H D Lymphocytes % 9.8 D Monocytes % 4.2 Eosinophils % 2.4 Basophils % 0.4 Nucleated RBC % 0 Sodium 140 Potassium 3.8 Chloride 104 Carbon Dioxide 30 Anion Gap 6 L BUN 17.9 Creatinine 1.5 H Est GFR (CKD-EPI)AfAm 52.40 Est GFR (CKD-EPI)NonAf 45.21 Random Glucose 208 H Calcium 9.4 Total Bilirubin 1.0 AST 18 ALT 30 Alkaline Phosphatase 91 Troponin I < 0.02 Total Protein 7.7 Albumin 3.9 Influenza A (Rapid) Negative Influenza B (Rapid) Negative ASSESSMENT/PLAN: 73yo M with PMH of CAD s/p stent, ?asthma, DM, KENN presenting with worsening sob and cough over the last few days. #SOB -likely 2/2 COPD exacerbation, provoked by URI. 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 #CAD -cont. home meds #DM? -denies diabetes -but now on steroids, will do bgms, ssi #FEN -no iv fluids -monitor -sodium diet Visit type - Emergency Visit Emergency Visit: Yes ED Registration Date: 09/25/19 Care time: The patient presented to the Emergency Department on the above date and was hospitalized for further evaluation of their emergent condition. - New Patient This patient is new to me today: Yes Date on this admission: 10/16/19 - Critical Care Critical Care patient: No ATTENDING PHYSICIAN STATEMENT I saw and evaluated the patient. I reviewed the resident's note and discussed the case with the resident. I agree with the resident's findings and plan as documented. SUBJECTIVE: OBJECTIVE: ASSESSMENT AND PLAN:
[2019-09-25] MEDS ORDERED: PATIENT'S OWN MEDICATION (NON-FORMULARY) (Benzonatate 100 MG) PO SCH (19:00)
--- NOTE | 2019-09-25 19:19 | PN ---
Teaching Attending Note Name of Resident: La Roman ATTENDING PHYSICIAN STATEMENT I saw and evaluated the patient. I reviewed the resident's note and discussed the case with the resident. I agree with the resident's findings and plan as documented. 73 M h/o CAD s/p stent, ?asthma/COPD, T2DM, KENN/?OHS presenting with worsening sob and cough over the last few days. He says his cough is productive of white- silva sputum. Pt. went to [facility] urgent care where labs were drawn he was given 1 neb treatment w/ PO prednisone and was told to go to ER for further treatment. Currently pt. endorses some nasal bogginess/stuffiness and productive cough w/ grayish-light brown sputum. Denies fever/chills, denies chest pain. ET 1-2 flights of stairs a/w SOB on exertion which is chronic. Compliant w/ CPAP therapy uses FFM. Denies diarrhea/abdominal pain/urinary changes/N/V, vision changes, JOHNSON, neckstiffness. PE GA obese, AAox3, elderly male, speaking in full sentences HEENT NC/AT, EOMI, dry MM, no JVD, negative hepatojugular reflux Chest scattered wheezes bilaterally, no crackles CVS S1, S2+, RRR, RAPHAEL+ Abd obese, Soft, NT, no guarding Ext 1-2+ pitting edema LE (chronic but improved from prior as per pt), no calf tenderness, good perfusion both lower extremities and upper extremities Vital Signs - 24 hr 09/25/19 09/25/19 09/25/19 13:10 13:30 13:35 Temperature 99.2 F Pulse Rate 81 84 Pulse Rate [ Apical] Respiratory 16 Rate Blood Pressure 150/67 Blood Pressure [Left Arm] O2 Sat by Pulse 92 L 97 90 L Oximetry (%) 09/25/19 18:48 Temperature 95 F L Pulse Rate Pulse Rate [ 76 Apical] Respiratory 20 Rate Blood Pressure Blood Pressure 137/68 [Left Arm] O2 Sat by Pulse 95 Oximetry (%) Laboratory Results - last 24 hr 09/25/19 09/25/19 09/25/19 13:28 13:30 13:30 WBC 6.3 RBC 4.21 Hgb 12.8 Hct 36.8 MCV 87.3 MCH 30.4 MCHC 34.8 RDW 15.4 D Plt Count 165 MPV 8.2 Absolute Neuts (auto) 5.3 Neutrophils % 83.2 H D Lymphocytes % 9.8 D Monocytes % 4.2 Eosinophils % 2.4 Basophils % 0.4 Nucleated RBC % 0 Sodium 140 Potassium 3.8 Chloride 104 Carbon Dioxide 30 Anion Gap 6 L BUN 17.9 Creatinine 1.5 H Est GFR (CKD-EPI)AfAm 52.40 Est GFR (CKD-EPI)NonAf 45.21 Random Glucose 208 H Calcium 9.4 Total Bilirubin 1.0 AST 18 ALT 30 Alkaline Phosphatase 91 Troponin I < 0.02 Total Protein 7.7 Albumin 3.9 Influenza A (Rapid) Negative Influenza B (Rapid) Negative Home Medications Medication Instructions Recorded Aspirin [ASA -] 81 mg PO DAILY 11/05/18 Clopidogrel Bisulfate [Plavix] 75 mg PO DAILY 11/05/18 Potassium Chloride [Klor-Con M20] 20 meq PO DAILY 11/05/18 Tamsulosin HCl [Flomax] 0.8 mg PO DAILY 11/05/18 Albuterol Sulfate [Proair Hfa] 8.5 gm IH PRN 09/25/19 Amlodipine Besylate 10 mg PO DAILY 09/25/19 Atorvastatin Ca [Lipitor] 80 mg PO HS 09/25/19 Benzonatate [Tessalon Perle -] 100 mg PO PRN 09/25/19 Carvedilol [Coreg -] 12.5 mg PO DAILY 09/25/19 Furosemide 40 mg PO DAILY 09/25/19 Gabapentin 400 mg PO TID 09/25/19 Glipizide 5 mg PO DAILY 09/25/19 Losartan Potassium 25 mg PO DAILY 09/25/19 Salmeterol/Fluticasone [Advair 1 inh PO BID 09/25/19 100Mcg/50Mcg -] Torsemide 20 mg PO 20 09/25/19 Umeclidinium Brm/Vilanterol Tr 1 each IH DAILY 09/25/19 [Anoro Ellipta 62.5-25 Mcg INH] Current Medications Generic Name Dose Route Start Last Admin Trade Name Freq PRN Reason Stop Dose Admin Albuterol Sulfate 1 amp 09/25/19 17:37 Ventolin 0.083% Nebulizer Soln - NEB Q4H PRN SHORT OF BREATH/WHEEZING Albuterol/Ipratropium 1 amp 09/25/19 20:00 Duoneb - NEB RQID RYLAN Amlodipine Besylate 10 mg 09/26/19 10:00 Norvasc - PO DAILY RYLAN Aspirin 81 mg 09/26/19 10:00 Asa - PO DAILY COUNTS INCLUDE 234 BEDS AT THE [facility] Atorvastatin Calcium 80 mg 09/25/19 22:00 Lipitor - PO HS RYLAN Carvedilol 12.5 mg 09/26/19 10:00 Coreg - PO DAILY RYLAN Clopidogrel Bisulfate 75 mg 09/26/19 10:00 Plavix - PO DAILY COUNTS INCLUDE 234 BEDS AT THE [facility] Heparin Sodium (Porcine) 5,000 unit 09/25/19 22:00 Heparin - SQ TID RYLAN Doxycycline Hyclate 100 mg/ 100 mls @ 100 mls/hr 09/25/19 19:00 Dextrose IVPB BID RYLAN Insulin Aspart 1 vial 09/25/19 22:00 Novolog Vial Sliding Scale - SQ ACHS COUNTS INCLUDE 234 BEDS AT THE [facility] Protocol Losartan Potassium 25 mg 09/26/19 10:00 Cozaar - PO DAILY RYLAN Methylprednisolone Sodium Succinate 40 mg 09/26/19 02:00 Solu-Medrol - IVPUSH Q8H-IV RYLAN Non-Formulary Medication 100 mg 09/25/19 19:00 Benzonatate PO PRN RYLAN A/P: 73 M h/o obesity, CAD s/p stent, ?asthma/COPD, DM 2, KENN/?OHS presenting with asthma/COPDE a/w URI symptoms. SOB likely 2/2 asthma/COPDE, send Flu/RSV/legionella/strep cover for URI with Doxycycline 100mg BID pending cultures/swabs Duonebs standing and PRN, IV medrol, incentive spirometry, NC PRN to get O2 sat >92% Pulmonary cs: Dr Ambrosio CAD s/p stenting cont. ASA/Plavix, BB, statin trops negx1 obtain 2nd set, recently followed w/ Dr Arguello had echo done, obtain results No clinical signs of ACS T2DM ISS and supplement w/ basal coverage as needed in view of steroid induced hyperglycemia KENN on CPAP son will bring patient's CPAP machine from home (as per patient preference) BILL likely prerenal/diuretic induced, hold JOJO/ARB, avoid nephrotoxins patient appears euvolemic currently, hold diuretics for now repeat CRE w/ next blood draw, if CRE continues to trend up, obtain renal sono, send urine lytes and consult renal DVT ppx: Heparin SC FEN: no IVF/daily chem/Na/DM diet Med-surg
[2019-09-25 19:54] LABS: URINE APPEARANCE CLEAR; URINE BILIRUBIN NEGATIVE (NEGATIVE); URINE COLOR YELLOW; URINE GLUCOSE (UA) 2+ (NEGATIVE); URINE KETONE NEGATIVE (NEGATIVE); URINE LEUK ESTERASE NEGATIVE (NEGATIVE); URINE NITRITE NEGATIVE (NEGATIVE); URINE PROTEIN TRACE (NEGATIVE); URINE UROBILINOGEN 0.2 mg/dL (0.2-1.0)
[2019-09-25] MEDS: DOXYCYCLINE INJECTION 100 MG in DEXTROSE 5%-WATER - 100 ML IVPB SCH (21:43)
[2019-09-25] MEDS: INSULIN SLIDING SCALE (NOVOLOG) 1 VIAL SQ SCH (22:32)
[2019-09-25] MEDS: HEPARIN NA (PORCINE) 5,000 UNITS/ML 1ML VIAL SQ SCH (22:32)
[2019-09-25] MEDS: ATORVASTATIN CA 80 MG TABLET (FP) PO SCH (22:32)
[2019-09-26] MEDS: methylPREDNISolone NA SUCC 40 MG/1 ML VIAL IVPUSH SCH ×3 (01:13→17:27)
[2019-09-26] MEDS: ALBUTEROL SO4 2.5/IPRATROPIUM 0.5 INH SOL 3 ML VIAL.NEB. NEB SCH ×5 (01:52→20:55)
[2019-09-26 06:47] LABS: BASO % 0.2 % (0-2.0); HEMATOCRIT 35.7 % (35.4-49); HEMOGLOBIN 12.5 GM/dL (11.7-16.9); MCH 30.3 pg (25.7-33.7); MEAN CELL VOLUME 86.6 fl (80-96); MONO % 2.8 % (3.8-10.2); PLATELET COUNT 170 K/MM3 (134-434); RBC 4.12 M/mm3 (4.00-5.60); RDW 15.1 % (11.9-15.9); WHITE BLOOD COUNT 6.6 K/mm3 (4.0-10.0)
[2019-09-26] MEDS: HEPARIN NA (PORCINE) 5,000 UNITS/ML 1ML VIAL SQ SCH ×3 (06:54→22:19)
[2019-09-26 07:17] LABS: ALBUMIN 3.6 g/dl (3.4-5.0); BILIRUBIN,TOTAL 0.7 mg/dL (0.2-1); BLOOD UREA NITROGEN 26.6 mg/dL (7-18); CREATININE 1.6 mg/dL (0.55-1.3); MAGNESIUM 2.1 mg/dL (1.8-2.4); PHOSPHOROUS 2.1 mg/dL (2.5-4.9); POTASSIUM 3.6 mmol/L (3.5-5.1); TOT PROT 7.2 g/dl (6.4-8.2)
[2019-09-26] MEDS ORDERED: ALBUTEROL SO4 2.5/IPRATROPIUM 0.5 INH SOL 3 ML VIAL.NEB. NEB ONE (08:28)
[2019-09-26] MEDS ORDERED: DOXYCYCLINE HYCLATE 100 MG VIAL ONE (09:01)
--- NOTE | 2019-09-26 09:51 | CON.CARD ---
Consult Consult Specialty:: Cardiology Referred by:: Hospitalist Medicine Reason for Consultation:: CAD s/p PCI - History of Present Illness Chief Complaint: Cough, dyspnea, wheezes History of Present Illness: 73 M h/o CAD s/p stent, ?asthma/COPD, T2DM, KENN/?OHS presenting with worsening sob and cough over the last few days. He says his cough is productive of white- silva sputum. Pt. went to [facility] urgent care where labs were drawn he was given 1 neb treatment w/ PO prednisone and was told to go to ER for further treatment. Patient reports nasal congestion and productive cough w/ grayish- light brown sputum. Low grade fever but denies chills, chest pain, palpitations , near or true sycope, orthopnea, PND or LE edema. ET 1-2 flights of stairs a/w SOB on exertion which is chronic. Compliant w/ CPAP therapy. - History Source History Provided By: Patient Limitations to Obtaining History: No Limitations - Past Medical History Cardio/Vascular: Yes: CAD, HTN, Hyperlipdemia Pulmonary: Yes: Bronchitis - Alcohol/Substance Use Hx Alcohol Use: No - Smoking History Smoking history: Never smoked Have you smoked in the past 12 months: No Home Medications - Allergies Allergies/Adverse Reactions: Allergies Allergy/AdvReac Type Severity Reaction Status Date / Time codeine [Codeine] Allergy Verified 05/20/19 23:06 Penicillins Allergy Verified 05/20/19 23:06 - Home Medications Home Medications: Ambulatory Orders Aspirin [ASA -] 81 mg PO DAILY 11/05/18 Clopidogrel Bisulfate [Plavix] 75 mg PO DAILY 11/05/18 Potassium Chloride [Klor-Con M20] 20 meq PO DAILY 11/05/18 Tamsulosin HCl [Flomax] 0.8 mg PO DAILY 11/05/18 Albuterol Sulfate [Proair Hfa] 8.5 gm IH PRN 09/25/19 Amlodipine Besylate 10 mg PO DAILY 09/25/19 Atorvastatin Ca [Lipitor] 80 mg PO HS 09/25/19 Benzonatate [Tessalon Perle -] 100 mg PO PRN 09/25/19 Carvedilol [Coreg -] 12.5 mg PO DAILY 09/25/19 Furosemide 40 mg PO DAILY 09/25/19 Gabapentin 400 mg PO TID 09/25/19 Glipizide 5 mg PO DAILY 09/25/19 Losartan Potassium 25 mg PO DAILY 09/25/19 Salmeterol/Fluticasone [Advair 100Mcg/50Mcg -] 1 inh PO BID 09/25/19 Torsemide 20 mg PO 20 09/25/19 Umeclidinium Brm/Vilanterol Tr [Anoro Ellipta 62.5-25 Mcg INH] 1 each IH DAILY 09/25/19 Review of Systems - Review of Systems Cardiovascular: reports: Shortness of Breath Respiratory: reports: Cough, SOB, SOB on Exertion, Wheezing Vital Signs: Vital Signs Temperature 97.7 F 09/26/19 06:00 Pulse Rate 92 H 09/26/19 06:00 Respiratory Rate 17 09/26/19 06:00 Blood Pressure 137/77 09/26/19 06:00 O2 Sat by Pulse Oximetry (%) 95 09/25/19 18:48 Constitutional: Yes: No Distress, Calm Neck: Yes: Supple Respiratory: Yes: Regular, Cough, Diminished, SOB, Wheezes Gastrointestinal: Yes: Normal Bowel Sounds, Soft, Abdomen, Obese Cardiovascular: Yes: Regular Rate and Rhythm JVD: No Carotid Bruit: No Heart Sounds: Yes: S1, S2 Murmur: Yes: Systolic Murmur, Grade 1 Edema: No - Other Data Labs, Other Data: CBC, BMP 09/26/19 06:20 09/26/19 06:20 Troponin, BNP 09/25/19 09/25/19 13:28 18:35 Troponin I < 0.02 < 0.02 Troponin, BNP 09/25/19 09/25/19 13:28 18:35 Troponin I < 0.02 < 0.02 Echo: Report Reviewed Ejection Fraction %: LVEF > or = 40 % Imaging - Results Chest X-ray: Report Reviewed (Left base ATX) Problem List - Problems (1) COPD (chronic obstructive pulmonary disease) with acute bronchitis Code(s): J44.0 - CHR OBSTRUCTIVE PULMON DISEASE WITH (ACUTE) LOWER RESP INFCT; J20.9 - ACUTE BRONCHITIS, UNSPECIFIED (2) Hypoxia Code(s): R09.02 - HYPOXEMIA (3) Shortness of breath Code(s): R06.02 - SHORTNESS OF BREATH (4) HLD (hyperlipidemia) Code(s): E78.5 - HYPERLIPIDEMIA, UNSPECIFIED Qualifiers: Hyperlipidemia type: pure hypercholesterolemia Qualified Code(s): E78.00 - Pure hypercholesterolemia, unspecified; E78.0 - Pure hypercholesterolemia (5) Sleep apnea Code(s): G47.30 - SLEEP APNEA, UNSPECIFIED Qualifiers: Sleep apnea type: obstructive Qualified Code(s): G47.33 - Obstructive sleep apnea (adult) (pediatric) (6) Coronary artery disease Code(s): I25.10 - ATHSCL HEART DISEASE OF [place] CORONARY ARTERY W/O ANG PCTRS (7) Presence of drug-eluting stent in right coronary artery Code(s): Z95.5 - PRESENCE OF CORONARY ANGIOPLASTY IMPLANT AND GRAFT (8) Hypertensive heart disease Code(s): I11.9 - HYPERTENSIVE HEART DISEASE WITHOUT HEART FAILURE Qualifiers: Heart failure presence: without heart failure Qualified Code(s): I11.9 - Hypertensive heart disease without heart failure Assessment/Plan 05/20/2018 Nuc stress: Mod inferior ischemia with small infarct, LVEF 52% 05/20/2018 Echo: Normal LV size with mod cLVH, LVEF 55-60%, mild LAE, mod MR, tr TR 05/21/2018 LHC performed at [facility] for [place]/NSTEMI and moderate inferior ischemia. 2 vessel CAD 90-95% ostial LCx-OM (medium sized vessel) left alone, 90 -95% prox RCA which was treated with implant Resolute Bishop 4.0x18 mm FISH post- dilated with NC 4.5x15 balloon @ 14 SARAHY, normal LV fxn LVEF 65-70% with elevated LVEDP 27 mmHg, no aortic stenosis. Mynx deployed right BRILLIANDEER LOOPER access site , no complications. Recommend optimal medical therapy for secondary prevention of cardiovascular disease, consider PCI of LCx-OM if remains symptomatic despite meds, patient is candidate for cardiac rehab. 1. Acute hypoxic respiratory failure referable to 2. AE COPD triggered by URI 3. CAD s/p FISH RCA 4. Type 2 DM 5. BILL (prerenal) 6. OSAS on cpap 7. Hypertensive heart disease 8. Hyperlipidemia P:1. BD, IV steroids, empiric abx, O2 to maintain saO2 >90% 2. Hold Lasix and losartan, judicious hydration pending renal fxn stabilization 3. Continue ASA 81 qd, Plavix 75 qd, Norvac 10 qd, Lipitor 80 qd, carvedilol 12.5 bid 4. Cpap nightly 5. Thank you for consultative opportunity
[2019-09-26] MEDS: LOSARTAN POTASSIUM 25 MG TABLET PO SCH (09:57)
[2019-09-26] MEDS: amLODIPine BESYLATE 10 MG TABLET (FP) PO SCH (09:57)
[2019-09-26] MEDS: DOXYCYCLINE INJECTION 100 MG in DEXTROSE 5%-WATER - 100 ML IVPB SCH ×2 (09:57→23:03)
[2019-09-26] MEDS: INSULIN SLIDING SCALE (NOVOLOG) 1 VIAL SQ SCH ×4 (09:57→22:21)
[2019-09-26] MEDS: CLOPIDOGREL BISULFATE 75 MG TABLET (FP) PO SCH (09:57)
[2019-09-26] MEDS: ASPIRIN 81 MG CHEWABLE TABLETS PO SCH (09:57)
[2019-09-26] MEDS ORDERED: CARVEDILOL 12.5 MG TABLET (FP) PO SCH (10:00)
[2019-09-26] MEDS ORDERED: PT OWN MED DRAWER 7, Y5N ONE ×2 (10:59→21:37)
[2019-09-26] MEDS ORDERED: INSULIN (NOVOLOG) ASPART 100 UNITS/ML 10ML VIAL ONE ×2 (11:25→21:36)
[2019-09-26 12:06] VITALS: BMI 31.5
--- NOTE | 2019-09-26 13:44 | CON.PULM ---
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 Severe OSAS diagnosed in 2014 by NPSG: RDI was 61.2 events per hour with mild oxygen desaturation to 89%. He is maintained on CPAP @ 7 cm H2O. Additional history of CAD s/p stent, and DM. Admitted via the ER due to worsening SOB and cough since Sunday. He reports productive white-silva sputum. He reports subjective fever and chills. No hemoptysis or night sweats. No travel history or sick contacts. He initially went to urgent care and was sent to the ER for further evaluation and management. CXR: basilar atelectasis - History Source History Provided By: Patient Limitations to Obtaining History: No Limitations - Past Medical History Cardio/Vascular: Yes: CAD, HTN, Hyperlipdemia Pulmonary: Yes: Bronchitis, COPD, Pneumonia, Sleep Apnea. No: Asthma, Cancer, O2 Dependent, Previously Intubated, Pulmonary Embolus, Pulmonary Fibrosis - Alcohol/Substance Use Hx Alcohol Use: No - Smoking History Smoking history: Never smoked Have you smoked in the past 12 months: No Home Medications - Allergies Allergies/Adverse Reactions: Allergies Allergy/AdvReac Type Severity Reaction Status Date / Time codeine [Codeine] Allergy Verified 05/20/19 23:06 Penicillins Allergy Verified 05/20/19 23:06 - Home Medications Home Medications: Ambulatory Orders Aspirin [ASA -] 81 mg PO DAILY 11/05/18 Clopidogrel Bisulfate [Plavix] 75 mg PO DAILY 11/05/18 Potassium Chloride [Klor-Con M20] 20 meq PO DAILY 11/05/18 Tamsulosin HCl [Flomax] 0.8 mg PO DAILY 11/05/18 Albuterol Sulfate [Proair Hfa] 8.5 gm IH PRN 09/25/19 Amlodipine Besylate 10 mg PO DAILY 09/25/19 Atorvastatin Ca [Lipitor] 80 mg PO HS 09/25/19 Benzonatate [Tessalon Perle -] 100 mg PO PRN 09/25/19 Carvedilol [Coreg -] 12.5 mg PO DAILY 09/25/19 Furosemide 40 mg PO DAILY 09/25/19 Gabapentin 400 mg PO TID 09/25/19 Glipizide 5 mg PO DAILY 09/25/19 Losartan Potassium 25 mg PO DAILY 09/25/19 Salmeterol/Fluticasone [Advair 100Mcg/50Mcg -] 1 inh PO BID 09/25/19 Torsemide 20 mg PO 20 09/25/19 Umeclidinium Brm/Vilanterol Tr [Anoro Ellipta 62.5-25 Mcg INH] 1 each IH DAILY 09/25/19 Review of Systems - Review of Systems Constitutional: reports: Chills, Fever, Malaise. denies: Night Sweats, Unintentional Wgt. Loss Eyes: reports: No Symptoms HENT: reports: No Symptoms Neck: reports: No Symptoms Cardiovascular: reports: Shortness of Breath. denies: Chest Pain, Edema, Palpitations Respiratory: reports: Cough, Snoring, SOB, SOB on Exertion, Wheezing. denies: Hemoptysis Gastrointestinal: reports: No Symptoms Genitourinary: reports: No Symptoms Breasts: reports: No Symptoms Reported Musculoskeletal: reports: No Symptoms Integumentary: reports: No Symptoms Neurological: reports: No Symptoms Endocrine: reports: No Symptoms Hematology/Lymphatic: reports: No Symptoms Psychiatric: reports: No Symptoms Physical Exam Vital Sings: Vital Signs Temperature 98.2 F 09/26/19 11:59 Pulse Rate 88 09/26/19 11:59 Respiratory Rate 18 09/26/19 11:59 Blood Pressure 160/60 09/26/19 11:59 O2 Sat by Pulse Oximetry (%) 95 09/26/19 12:11 Constitutional: Yes: No Distress Eyes: Yes: Conjunctiva Clear, EOM Intact HENT: Yes: Atraumatic, Normocephalic Neck: Yes: Supple, Trachea Midline Cardiovascular: Yes: Regular Rate and Rhythm Respiratory: Yes: Cough, Diminished, Rhonchi, SOB, SOB on Exertion, Tachypnea, Wheezes. No: Accessory Muscle Use, Rales, Stridor ...Inspection: Yes: WNL ...Clubbing: No Gastrointestinal: Yes: Normal Bowel Sounds, Soft, Abdomen, Obese Renal/: Yes: WNL Musculoskeletal: Yes: WNL Extremities: Yes: WNL Edema: No Peripheral Pulses WNL: Yes Integumentary: Yes: WNL Neurological: Yes: WNL, Alert, Oriented ...Motor Strength: WNL Psychiatric: Yes: WNL, Alert, Oriented Labs: CBC, BMP 09/26/19 06:20 09/26/19 06:20 Imaging - Results Chest X-ray: Report Reviewed, Image Reviewed Problem List - Problems (1) Acute exacerbation of chronic obstructive pulmonary disease (COPD) Code(s): J44.1 - CHRONIC OBSTRUCTIVE PULMONARY DISEASE W (ACUTE) EXACERBATION (2) Atelectasis Code(s): J98.11 - ATELECTASIS (3) COPD (chronic obstructive pulmonary disease) with acute bronchitis Code(s): J44.0 - CHR OBSTRUCTIVE PULMON DISEASE WITH (ACUTE) LOWER RESP INFCT; J20.9 - ACUTE BRONCHITIS, UNSPECIFIED (4) Coronary artery disease Code(s): I25.10 - ATHSCL HEART DISEASE OF [place] CORONARY ARTERY W/O ANG PCTRS (5) Hypertensive heart disease Code(s): I11.9 - HYPERTENSIVE HEART DISEASE WITHOUT HEART FAILURE Qualifiers: Heart failure presence: without heart failure Qualified Code(s): I11.9 - Hypertensive heart disease without heart failure (6) Presence of drug-eluting stent in right coronary artery Code(s): Z95.5 - PRESENCE OF CORONARY ANGIOPLASTY IMPLANT AND GRAFT (7) Shortness of breath Code(s): R06.02 - SHORTNESS OF BREATH (8) Obesity (BMI 30.0-34.9) Code(s): E66.9 - OBESITY, UNSPECIFIED (9) Sleep apnea Code(s): G47.30 - SLEEP APNEA, UNSPECIFIED Qualifiers: Sleep apnea type: obstructive Qualified Code(s): G47.33 - Obstructive sleep apnea (adult) (pediatric) Assessment/Plan PLAN: Medrol BD TX standing and PRN Supplemental O2 to maintain saturation Noted Doxycycline No smoking counseled (life long non-smoker) VTE prophylaxis Patient has his own CPAP device with him that should be used QHS and PRN Will follow Thank you. Dr Ambrosio
--- NOTE | 2019-09-26 15:44 | EKG ---
Test Reason : Blood Pressure : / mmHG Vent. Rate : 080 BPM Atrial Rate : 080 BPM P-R Int : 160 ms QRS Dur : 136 ms QT Int : 414 ms P-R-T Axes : 060 -14 003 degrees QTc Int : 477 ms POOR DATA QUALITY, INTERPRETATION MAY BE ADVERSELY AFFECTED SINUS RHYTHM WITH FUSION COMPLEXES RIGHT BUNDLE BRANCH BLOCK ABNORMAL ECG WHEN COMPARED WITH ECG OF 20-MAY-2018 03:50, FUSION COMPLEXES ARE NOW PRESENT Confirmed by JUAN C YADAV MD ([id number]) on 09/26/2019 3:44:19 PM Referred By: Confirmed By:JUAN C YADAV MD
--- NOTE | 2019-09-26 16:50 | HP ---
Admitting History and Physical - Past Medical History Cardiovascular: Yes: CAD, HTN, Hyperlipdemia Pulmonary: Yes: Bronchitis, COPD, Pneumonia, Sleep Apnea. No: Asthma, Cancer, O2 Dependent, Previously Intubated, Pulmonary Embolus, Pulmonary Fibrosis - Advance Directives Advance Directives: Yes: Living Will - Smoking History Smoking history: Never smoked Have you smoked in the past 12 months: No - Alcohol/Substance Use Hx Alcohol Use: No Home Medications - Allergies Allergies/Adverse Reactions: Allergies Allergy/AdvReac Type Severity Reaction Status Date / Time codeine [Codeine] Allergy Verified 05/20/19 23:06 Penicillins Allergy Verified 05/20/19 23:06 - Home Medications Home Medications: Ambulatory Orders Aspirin [ASA -] 81 mg PO DAILY 11/05/18 Clopidogrel Bisulfate [Plavix] 75 mg PO DAILY 11/05/18 Potassium Chloride [Klor-Con M20] 20 meq PO DAILY 11/05/18 Tamsulosin HCl [Flomax] 0.8 mg PO DAILY 11/05/18 Albuterol Sulfate [Proair Hfa] 8.5 gm IH PRN 09/25/19 Amlodipine Besylate 10 mg PO DAILY 09/25/19 Atorvastatin Ca [Lipitor] 80 mg PO HS 09/25/19 Benzonatate [Tessalon Perle -] 100 mg PO PRN 09/25/19 Carvedilol [Coreg -] 12.5 mg PO DAILY 09/25/19 Gabapentin 400 mg PO TID 09/25/19 Glipizide 5 mg PO DAILY 09/25/19 Losartan Potassium 25 mg PO DAILY 09/25/19 Salmeterol/Fluticasone [Advair 100Mcg/50Mcg -] 1 inh PO BID 09/25/19 Torsemide 20 mg PO 20 09/25/19 Umeclidinium Brm/Vilanterol Tr [Anoro Ellipta 62.5-25 Mcg INH] 1 each IH DAILY 09/25/19 Physical Examination Vital Signs: Vital Signs Temperature 98.4 F 09/26/19 14:00 Pulse Rate 80 09/26/19 14:00 Respiratory Rate 20 09/26/19 14:00 Blood Pressure 147/83 09/26/19 14:00 O2 Sat by Pulse Oximetry (%) 95 09/26/19 12:11 Labs: CBC, BMP 09/26/19 06:20 09/26/19 06:20
[2019-09-26] MEDS: AMOX TR/POT CLAV 875MG/125MG TABLETS (FP) PO SCH (18:01)
[2019-09-26] MEDS: ATORVASTATIN CA 80 MG TABLET (FP) PO SCH (22:19)
[2019-09-26] MEDS: CARVEDILOL 12.5 MG TABLET (FP) PO SCH (22:19)
[2019-09-27] MEDS: methylPREDNISolone NA SUCC 40 MG/1 ML VIAL IVPUSH SCH ×3 (02:44→17:50)
[2019-09-27] MEDS: INSULIN SLIDING SCALE (NOVOLOG) 1 VIAL SQ SCH ×4 (06:31→21:00)
[2019-09-27] MEDS: HEPARIN NA (PORCINE) 5,000 UNITS/ML 1ML VIAL SQ SCH ×3 (06:33→21:01)
[2019-09-27] MEDS: ALBUTEROL SO4 2.5/IPRATROPIUM 0.5 INH SOL 3 ML VIAL.NEB. NEB SCH ×4 (07:45→20:15)
--- NOTE | 2019-09-27 09:26 | PN ---
Progress Note, Physician History of Present Illness: Pt feels better on CPAP at Night doing well No Fever SOB improved well No chest pain - Current Medication List Current Medications: Active Medications Albuterol Sulfate (Ventolin 0.083% Nebulizer Soln -) 1 amp NEB Q4H PRN PRN Reason: SHORT OF BREATH/WHEEZING Albuterol/Ipratropium (Duoneb -) 1 amp NEB RQID [facility] Last Admin: 09/27/19 07:45 Dose: 1 amp Amlodipine Besylate (Norvasc -) 10 mg PO DAILY [facility] Last Admin: 09/26/19 09:57 Dose: 10 mg Amoxicillin/Clavulanate Potassium (Augmentin - 875mg Tablet) 1 tab PO BID@0800, 1730 [facility] Stop: 10/02/19 06:00 Last Admin: 09/26/19 18:01 Dose: 1 tab Aspirin (Asa -) 81 mg PO DAILY [facility] Last Admin: 09/26/19 09:57 Dose: 81 mg Atorvastatin Calcium (Lipitor -) 80 mg PO HS [facility] Last Admin: 09/26/19 22:19 Dose: 80 mg Carvedilol (Coreg -) 12.5 mg PO BID [facility] Last Admin: 09/26/19 22:19 Dose: 12.5 mg Clopidogrel Bisulfate (Plavix -) 75 mg PO DAILY [facility] Last Admin: 09/26/19 09:57 Dose: 75 mg Heparin Sodium (Porcine) (Heparin -) 5,000 unit SQ TID [facility] Last Admin: 09/27/19 06:33 Dose: 5,000 unit Doxycycline Hyclate 100 mg/ (Dextrose) 100 mls @ 100 mls/hr IVPB BID [facility] Last Admin: 09/26/19 23:03 Dose: 100 mls/hr Insulin Aspart (Novolog Vial Sliding Scale -) 1 vial SQ ACHS [facility]; Protocol Last Admin: 09/27/19 06:31 Dose: 4 units Losartan Potassium (Cozaar -) 25 mg PO DAILY [facility] Last Admin: 09/26/19 09:57 Dose: 25 mg Methylprednisolone Sodium Succinate (Solu-Medrol -) 40 mg IVPUSH Q8H-IV [facility] Last Admin: 09/27/19 02:44 Dose: 40 mg Non-Formulary Medication (Benzonatate) 100 mg PO PRN [facility] - Objective Vital Signs: Vital Signs Temperature 98 F 09/27/19 05:00 Pulse Rate 85 09/27/19 05:00 Respiratory Rate 20 09/27/19 05:00 Blood Pressure 148/74 09/27/19 05:00 O2 Sat by Pulse Oximetry (%) 97 09/26/19 22:00 Constitutional: Yes: Calm Eyes: Yes: Conjunctiva Clear, EOM Intact HENT: Yes: Atraumatic, Normocephalic Neck: Yes: Supple, Trachea Midline Cardiovascular: Yes: Regular Rate and Rhythm, S1, S2 Respiratory: Yes: Regular, CTA Bilaterally Gastrointestinal: Yes: Normal Bowel Sounds, Soft Edema: No Peripheral Pulses WNL: Yes Labs: CBC, BMP 09/26/19 06:20 09/26/19 06:20 Problem List - Problems (1) NSTEMI (non-ST elevated myocardial infarction) Code(s): I21.4 - NON-ST ELEVATION (NSTEMI) MYOCARDIAL INFARCTION (2) Acute exacerbation of chronic obstructive pulmonary disease (COPD) Code(s): J44.1 - CHRONIC OBSTRUCTIVE PULMONARY DISEASE W (ACUTE) EXACERBATION (3) Atelectasis Code(s): J98.11 - ATELECTASIS (4) Coronary artery disease Code(s): I25.10 - ATHSCL HEART DISEASE OF [place] CORONARY ARTERY W/O ANG PCTRS (5) Hypertensive heart disease Code(s): I11.9 - HYPERTENSIVE HEART DISEASE WITHOUT HEART FAILURE Qualifiers: Heart failure presence: without heart failure Qualified Code(s): I11.9 - Hypertensive heart disease without heart failure (6) Hypoxia Code(s): R09.02 - HYPOXEMIA (7) Presence of drug-eluting stent in right coronary artery Code(s): Z95.5 - PRESENCE OF CORONARY ANGIOPLASTY IMPLANT AND GRAFT (8) BPH (benign prostatic hyperplasia) Code(s): N40.0 - BENIGN PROSTATIC HYPERPLASIA WITHOUT LOWER URINRY TRACT SYMP (9) Sleep apnea Code(s): G47.30 - SLEEP APNEA, UNSPECIFIED (10) Hypokalemia Code(s): E87.6 - HYPOKALEMIA (11) CKD (chronic kidney disease) Code(s): N18.9 - CHRONIC KIDNEY DISEASE, UNSPECIFIED (12) Herpes zoster Code(s): B02.9 - ZOSTER WITHOUT COMPLICATIONS (13) Lumbar radiculopathy, chronic Code(s): M54.16 - RADICULOPATHY, LUMBAR REGION (14) Calcaneal spur, right foot Code(s): M77.31 - CALCANEAL SPUR, RIGHT FOOT
--- NOTE | 2019-09-27 09:38 | CON.ID ---
Consult Consult Specialty:: infectious diseases Referred by:: Reason for Consultation:: bronchitis,r/o pneumonia - History of Present Illness Chief Complaint: cough,weakenss,sob History of Present Illness: 73yo M with PMH of CAD s/p stent, asthma, DM, KENN admitted with worsening sob and cough over the last few days. He says his cough is productive of white-silva sputum. had fever and chills. Per patient, he went to the urgent care, was given steroids, breathing treatments, and was sent to the ER. Patient denies recent illness. He denied asthma/copd, but says he follows Dr. Ambrosio who prescribed him multiple medications. Patient says he gets sob when walking up 2 flight of stairs. Denies orthopnea. Admits to worsening LE edema. Sleeps with a CPAP at night He denies chest pain, nausea, vomiting, palpitations, runny nose, diarrhea, urinary symptoms. currently patient feels better and breathing is better patient is a smoker - History Source History Provided By: Patient Limitations to Obtaining History: No Limitations - Past Medical History Cardio/Vascular: Yes: CAD, HTN, Hyperlipdemia Pulmonary: Yes: Bronchitis, COPD, Pneumonia, Sleep Apnea. No: Asthma, Cancer, O2 Dependent, Previously Intubated, Pulmonary Embolus, Pulmonary Fibrosis - Alcohol/Substance Use Hx Alcohol Use: No - Smoking History Smoking history: Never smoked Have you smoked in the past 12 months: No Home Medications - Allergies Allergies/Adverse Reactions: Allergies Allergy/AdvReac Type Severity Reaction Status Date / Time codeine [Codeine] Allergy Verified 05/20/19 23:06 Penicillins Allergy Verified 05/20/19 23:06 - Home Medications Home Medications: Ambulatory Orders Aspirin [ASA -] 81 mg PO DAILY 11/05/18 Clopidogrel Bisulfate [Plavix] 75 mg PO DAILY 11/05/18 Potassium Chloride [Klor-Con M20] 20 meq PO DAILY 11/05/18 Tamsulosin HCl [Flomax] 0.8 mg PO DAILY 11/05/18 Albuterol Sulfate [Proair Hfa] 8.5 gm IH PRN 09/25/19 Amlodipine Besylate 10 mg PO DAILY 09/25/19 Atorvastatin Ca [Lipitor] 80 mg PO HS 09/25/19 Benzonatate [Tessalon Perle -] 100 mg PO PRN 09/25/19 Carvedilol [Coreg -] 12.5 mg PO DAILY 09/25/19 Gabapentin 400 mg PO TID 09/25/19 Glipizide 5 mg PO DAILY 09/25/19 Losartan Potassium 25 mg PO DAILY 09/25/19 Salmeterol/Fluticasone [Advair 100Mcg/50Mcg -] 1 inh PO BID 09/25/19 Torsemide 20 mg PO 20 09/25/19 Umeclidinium Brm/Vilanterol Tr [Anoro Ellipta 62.5-25 Mcg INH] 1 each IH DAILY 09/25/19 Review of Systems - Review of Systems Constitutional: reports: Weakness, Other Eyes: reports: No Symptoms HENT: reports: No Symptoms Neck: reports: No Symptoms Cardiovascular: reports: No Symptoms Respiratory: reports: Cough, SOB, SOB on Exertion, Wheezing Gastrointestinal: reports: No Symptoms Genitourinary: reports: No Symptoms Musculoskeletal: reports: No Symptoms Integumentary: reports: No Symptoms Neurological: reports: No Symptoms Endocrine: reports: No Symptoms Hematology/Lymphatic: reports: No Symptoms Psychiatric: reports: No Symptoms Physical Exam Vital Signs: Vital Signs Temperature 98 F 09/27/19 05:00 Pulse Rate 85 09/27/19 05:00 Respiratory Rate 20 09/27/19 05:00 Blood Pressure 148/74 09/27/19 05:00 O2 Sat by Pulse Oximetry (%) 97 09/26/19 22:00 Constitutional: Yes: Well Nourished, Calm, Mild Distress Eyes: Yes: Conjunctiva Clear HENT: Yes: Atraumatic, Normocephalic Neck: Yes: Supple, Trachea Midline Cardiovascular: Yes: Regular Rate and Rhythm Respiratory: Yes: Regular, Poor Air Entry (bases), Rhonchi Gastrointestinal: Yes: Normal Bowel Sounds, Soft Musculoskeletal: Yes: WNL Extremities: Yes: WNL Psychiatric: Yes: Alert, Oriented Labs: CBC, BMP 09/26/19 06:20 09/26/19 06:20 Imaging - Results Chest X-ray: Report Reviewed, Image Reviewed Assessment/Plan Problem List - Problems (1) Acute exacerbation of chronic obstructive pulmonary disease (COPD) Code(s): J44.1 - CHRONIC OBSTRUCTIVE PULMONARY DISEASE W (ACUTE) EXACERBATION (2) Atelectasis Code(s): J98.11 - ATELECTASIS (3) COPD (chronic obstructive pulmonary disease) with acute bronchitis Code(s): J44.0 - CHR OBSTRUCTIVE PULMON DISEASE WITH (ACUTE) LOWER RESP INFCT; J20.9 - ACUTE BRONCHITIS, UNSPECIFIED (4) Coronary artery disease Code(s): I25.10 - ATHSCL HEART DISEASE OF [place] CORONARY ARTERY W/O ANG PCTRS (5) Hypertensive heart disease Code(s): I11.9 - HYPERTENSIVE HEART DISEASE WITHOUT HEART FAILURE Qualifiers: Heart failure presence: without heart failure Qualified Code(s): I11.9 - Hypertensive heart disease without heart failure (6) Presence of drug-eluting stent in right coronary artery Code(s): Z95.5 - PRESENCE OF CORONARY ANGIOPLASTY IMPLANT AND GRAFT (7) Shortness of breath Code(s): R06.02 - SHORTNESS OF BREATH (8) Obesity (BMI 30.0-34.9) Code(s): E66.9 - OBESITY, UNSPECIFIED (9) Sleep apnea Code(s): G47.30 - SLEEP APNEA, UNSPECIFIED Qualifiers: Sleep apnea type: obstructive Qualified Code(s): G47.33 - Obstructive sleep apnea (adult) (pediatric) plan will change doxy to oral resp support incentive elie bipap at night stop smoking counseled rest as per the team
[2019-09-27] MEDS: AMOX TR/POT CLAV 875MG/125MG TABLETS (FP) PO SCH ×2 (09:52→17:50)
[2019-09-27] MEDS: ASPIRIN 81 MG CHEWABLE TABLETS PO SCH (09:53)
[2019-09-27] MEDS: CLOPIDOGREL BISULFATE 75 MG TABLET (FP) PO SCH (09:53)
[2019-09-27] MEDS: amLODIPine BESYLATE 10 MG TABLET (FP) PO SCH (09:53)
[2019-09-27] MEDS: LOSARTAN POTASSIUM 25 MG TABLET PO SCH (09:53)
[2019-09-27] MEDS: CARVEDILOL 12.5 MG TABLET (FP) PO SCH ×2 (09:53→21:01)
[2019-09-27 11:23] LABS: BASO % 0.2 % (0-2.0); HEMATOCRIT 38.6 % (35.4-49); HEMOGLOBIN 13.1 GM/dL (11.7-16.9); LYMPH % 4.5 % (8-40); MCH 29.9 pg (25.7-33.7); MCHC 33.9 g/dl (32.0-35.9); MEAN CELL VOLUME 88.3 fl (80-96); MEAN PLT VOLUME 8.4 fl (7.5-11.1); MONO % 4.8 % (3.8-10.2); NEUT % 90.5 % (42.8-82.8); PLATELET COUNT 208 K/MM3 (134-434); RBC 4.38 M/mm3 (4.00-5.60); WHITE BLOOD COUNT 14.8 K/mm3 (4.0-10.0)
[2019-09-27 11:52] LABS: BLOOD UREA NITROGEN 35.4 mg/dL (7-18); CALCIUM 8.9 mg/dL (8.5-10.1); CREATININE 1.8 mg/dL (0.55-1.3); POTASSIUM 3.7 mmol/L (3.5-5.1)
--- NOTE | 2019-09-27 13:33 | PN ---
Progress Note (short form) - Note Progress Note: PULMONARY OOB TO CHAIR VSS/AFEBRILE Constitutional: Yes: No Distress Eyes: Yes: Conjunctiva Clear, EOM Intact HENT: Yes: Atraumatic, Normocephalic Neck: Yes: Supple, Trachea Midline Cardiovascular: Yes: Regular Rate and Rhythm Respiratory: Yes: Cough, Diminished, Rhonchi, SOB, SOB on Exertion, Tachypnea, Wheezes. No: Accessory Muscle Use, Rales, Stridor ...Inspection: Yes: WNL ...Clubbing: No Gastrointestinal: Yes: Normal Bowel Sounds, Soft, Abdomen, Obese Renal/: Yes: WNL Musculoskeletal: Yes: WNL Extremities: Yes: WNL Edema: No Peripheral Pulses WNL: Yes Integumentary: Yes: WNL Neurological: Yes: WNL, Alert, Oriented ...Motor Strength: WNL Psychiatric: Yes: WNL, Alert, Oriented Imaging - Results Chest X-ray: Report Reviewed, Image Reviewed Problem List - Problems (1) Acute exacerbation of chronic obstructive pulmonary disease (COPD) Code(s): J44.1 - CHRONIC OBSTRUCTIVE PULMONARY DISEASE W (ACUTE) EXACERBATION (2) Atelectasis Code(s): J98.11 - ATELECTASIS (3) COPD (chronic obstructive pulmonary disease) with acute bronchitis Code(s): J44.0 - CHR OBSTRUCTIVE PULMON DISEASE WITH (ACUTE) LOWER RESP INFCT; J20.9 - ACUTE BRONCHITIS, UNSPECIFIED (4) Coronary artery disease Code(s): I25.10 - ATHSCL HEART DISEASE OF [place] CORONARY ARTERY W/O ANG PCTRS (5) Hypertensive heart disease Code(s): I11.9 - HYPERTENSIVE HEART DISEASE WITHOUT HEART FAILURE Qualifiers: Heart failure presence: without heart failure Qualified Code(s): I11.9 - Hypertensive heart disease without heart failure (6) Presence of drug-eluting stent in right coronary artery Code(s): Z95.5 - PRESENCE OF CORONARY ANGIOPLASTY IMPLANT AND GRAFT (7) Shortness of breath Code(s): R06.02 - SHORTNESS OF BREATH (8) Obesity (BMI 30.0-34.9) Code(s): E66.9 - OBESITY, UNSPECIFIED (9) Sleep apnea Code(s): G47.30 - SLEEP APNEA, UNSPECIFIED Qualifiers: Sleep apnea type: obstructive Qualified Code(s): G47.33 - Obstructive sleep apnea (adult) (pediatric) Assessment/Plan PLAN: Medrol to continue BD TX standing and PRN Supplemental O2 to maintain saturation Noted Doxycycline No smoking counseled (life long non-smoker) VTE prophylaxis Patient has his own CPAP device with him that should be used QHS and PRN Will follow Mago DIOR MD
[2019-09-27] MEDS ORDERED: INSULIN (NOVOLOG) ASPART 100 UNITS/ML 10ML VIAL ONE (17:37)
[2019-09-27] MEDS: ATORVASTATIN CA 80 MG TABLET (FP) PO SCH (21:01)
[2019-09-27] MEDS ORDERED: FUROSEMIDE 20 MG TABLET (FP) PO SCH (21:45)
[2019-09-27] MEDS ORDERED: POTASSIUM CHLORIDE ORAL LIQUID 20 MEQ/15 ML PO SCH (22:00)
[2019-09-27] MEDS ORDERED: DOCUSATE SODIUM 100 MG CAPSULE (FP) PO SCH (22:00)
[2019-09-27] MEDS ORDERED: LOSARTAN POTASSIUM 50 MG TABLET (FP) PO SCH (22:00)
[2019-09-28] MEDS: methylPREDNISolone NA SUCC 40 MG/1 ML VIAL IVPUSH SCH (03:14)
[2019-09-28 03:58] VITALS: BP 160/84; PULSE 78; TEMP 97.6
--- NOTE | 2019-09-28 04:39 | HOSP ---
Subjective - Review of Symptoms Events since last encounter: Hospitalist Encounter Notified by the RN, that the patient is requesting to sign out AMA. Was asked to speak with him. Arrived to floor patient was sitting in the solarium. Patient is AAOx3, denies SOB, CP, palpitations. Patient expressed his dismay on having another patient placed in his room. He states" I was going to go home on Sunday, I feel better and want to leave now." Attempts made to dissuade him- unsuccessful. Risks and Dangers explained to patient in leaving against medical advice. Patient verbalized understanding. Assessment: This is a 73 y/o man with a PMHx of CAD s/p Stent, ?Asthma, DM, KENN. Admitted for Asthma Exacerbation. Physical Examination Vital Signs: Vital Signs Temperature 97.6 F 09/27/19 22:00 Pulse Rate 78 09/27/19 22:00 Respiratory Rate 20 09/27/19 22:00 Blood Pressure 160/84 09/27/19 22:00 O2 Sat by Pulse Oximetry (%) 94 L 09/27/19 22:00 Constitutional: Yes: Well Nourished, Obese, Other (Agitated) Eyes: Yes: WNL, Conjunctiva Clear, EOM Intact, PERRL HENT: Yes: WNL, Atraumatic, Normocephalic Neck: Yes: WNL, Supple, Trachea Midline Cardiovascular: Yes: Regular Rate and Rhythm, S1, S2 Respiratory: Yes: Cough, Diminished, Rhonchi, Wheezes Gastrointestinal: Yes: WNL, Normal Bowel Sounds, Soft, Abdomen, Obese ...Rectal Exam: Yes: Deferred Renal/: Yes: WNL Breast(s): Yes: WNL Musculoskeletal: Yes: WNL Extremities: Yes: WNL Edema: No Peripheral Pulses WNL: Yes Neurological: Yes: WNL, Alert, Oriented, Cran Nerves II-XII Intact ...Motor Strength: WNL Psychiatric: Yes: Alert, Oriented, Agitated Labs: CBC, BMP 09/27/19 10:58 09/27/19 10:58
[2019-09-28] MEDS ORDERED: TAMSULOSIN HCL 0.4 MG CAP PO SCH (08:30)
== END 2019-09-28 04:00 | disposition left against medical advice (07) | DRG 191 ==
LOC: JER 13:03 → JERBED 17:38 → J8W 09-26 10:50
PROVIDERS: ADMIT Internal Medicine; ATTEND Internal Medicine
DX: J44.1 Chronic obstructive pulmonary disease with (acute) exacerbation (principal); J98.11 Atelectasis; N17.9 Acute kidney failure, unspecified; Z88.0 Allergy status to penicillin; I25.10 Atherosclerotic heart disease of native coronary artery without angina pectoris; G47.33 Obstructive sleep apnea (adult) (pediatric); I45.10 Unspecified right bundle-branch block; Z79.84 Long term (current) use of oral hypoglycemic drugs; J06.9 Acute upper respiratory infection, unspecified; E66.9 Obesity, unspecified; E78.5 Hyperlipidemia, unspecified; I11.9 Hypertensive heart disease without heart failure; Z68.31 Body mass index [BMI] 31.0-31.9, adult; N40.0 Benign prostatic hyperplasia without lower urinary tract symptoms; E11.22 Type 2 diabetes mellitus with diabetic chronic kidney disease; I12.9 Hypertensive chronic kidney disease with stage 1 through stage 4 chronic kidney disease, or unspecified chronic kidney disease; N18.9 Chronic kidney disease, unspecified
CPT/HCPCS: 36415; 71046-TC-FY; 80048; 80053; 81003; 82436; 82565; 82962; 83735; 84100; 84133; 84300; 84443; 84484; 85025; 87633; 87804; 87899; 93005; 93010; 94640; 97116-GP; 97162-GP; 99285-25; J1644

== ENCOUNTER 2020-02-10 10:32 | Emergency (ER) | payer OTHER, BC ==
[2020-02-10 10:37] VITALS: BP 184/74; PULSE 72; TEMP 98.3; BMI 30.1
[2020-02-10 12:08] LABS: EPI CELLS 3 /uL (0-25.1); HYALINE CASTS 9 /uL (0-3.1); URINE APPEARANCE TURBID; URINE BILIRUBIN NEGATIVE (NEGATIVE); URINE COLOR ORANGE; URINE GLUCOSE (UA) NEGATIVE (NEGATIVE); URINE KETONE TRACE (NEGATIVE); URINE LEUK ESTERASE 2+ (NEGATIVE); URINE NITRITE NEGATIVE (NEGATIVE); URINE PROTEIN 3+ (NEGATIVE); URINE RBC 190 /uL (0-23.9); URINE WBC 251 /uL (0-25.8)
[2020-02-10 12:46] LABS: URINE CRYSTALS PRESENT /hpf
== END 2020-02-10 13:49 | disposition home or self-care (01) ==
LOC: JERFT 10:32
PROC: 0T9B70Z Drainage of Bladder with Drainage Device, Via Natural or Artificial Opening (ICD-10-PCS; principal; 2020-02-10)
DX: T83.9XXA Unspecified complication of genitourinary prosthetic device, implant and graft, initial encounter (principal)
CPT/HCPCS: 51702; 81003; 87086; 87186; 99283-25

== ENCOUNTER 2020-02-11 09:56 | Emergency (ER) | payer OTHER, BC ==
[2020-02-11] MEDS ORDERED: ACETAMINOPHEN 500 MG TABLET (FP) PO ONE (10:02)
[2020-02-11 10:04] VITALS: BMI 30.1
[2020-02-11 10:06] VITALS: TEMP 98.3
[2020-02-11] MEDS ORDERED: ACETAMINOPHEN 325 MG TABLET (FP) ONE (10:58)
[2020-02-11 12:22] LABS: URINE APPEARANCE CLOUDY; URINE BILIRUBIN SMALL (NEGATIVE); URINE COLOR RED; URINE GLUCOSE (UA) NEGATIVE (NEGATIVE)
[2020-02-11 12:23] LABS: PH,URINE 5.5 (5.0-8.0); URINE KETONE NEGATIVE (NEGATIVE); URINE LEUK ESTERASE 3+ (NEGATIVE); URINE NITRITE POSITIVE (NEGATIVE); URINE PROTEIN 100 (NEGATIVE); URINE RBC 12173.2 /uL (0-23.9); URINE UROBILINOGEN 0.2 mg/dL (0.2-1.0)
[2020-02-11 12:24] LABS: HYALINE CASTS 334.8 /uL (0-3.1); URINE BACTERIA 238.9 /uL (0-1359)
[2020-02-11 13:01] VITALS: BP 173/73; PULSE 69
== END 2020-02-11 13:02 | disposition home or self-care (01) ==
LOC: JER 09:56
DX: T83.098A Other mechanical complication of other urinary catheter, initial encounter (principal); N39.0 Urinary tract infection, site not specified
CPT/HCPCS: 76856-TC; 81003; 87086; 87186; 99283-25; 99284-25

== ENCOUNTER 2020-02-23 05:02 | Day surgery (SDC) | payer OTHER, BC ==
[2020-02-19 09:10] VITALS: BMI 30.1
--- NOTE | 2020-02-23 08:23 | HP ---
History & Physical Update - History History: No Change - Physical Physical: No Change - Assessment Assessment: No Change - Plan Plan: No Change
--- NOTE | 2020-02-23 08:24 | OP ---
Operative Note - Note: Operative Date: 02/23/20 Pre-Operative Diagnosis: BPH, urinary retention Operation: bipolar TURP Findings: BPH Post-Operative Diagnosis: Same as Pre-op Surgeon: Watson Jj Anesthesiologist/RING CUTTER LATHE OPERATOR: Donny Umaña Anesthesia: Spinal Specimens Removed: prostate tissue Drains & Tubes with Location: [address] 30 ml aguilar Operative Report Dictated: Yes
[2020-02-23] MEDS ORDERED: GABAPENTIN 400 MG CAPSULE PO ONE (08:36)
[2020-02-23] MEDS ORDERED: LOSARTAN POTASSIUM 25 MG TABLET PO ONE (08:37)
[2020-02-23] MEDS ORDERED: ALBUTEROL SO4 HFA INHALER IH ONE (08:41)
[2020-02-23] MEDS ORDERED: UMECLIDINIUM/VILANTEROL (ANORO) 62.5/25 MCG INHALER IH SCH (10:00)
[2020-02-23] MEDS ORDERED: POTASSIUM CHLORIDE TABS 20 MEQ TABLET.ER (FP) PO SCH (10:00)
[2020-02-23] MEDS ORDERED: TORSEMIDE 20 MG TABLET (FP) PO SCH (10:00)
[2020-02-23] MEDS ORDERED: MIDAZOLAM HCL 2 MG/2 ML SINGLE DOSE VIAL ONE (11:34)
[2020-02-23] MEDS ORDERED: DEXMEDETOMIDINE HCL 200 MCG/2 ML IVPB ONE (11:36)
[2020-02-23] MEDS ORDERED: CLINDAMYCIN 600 MG PREMIX BAG IVPB ONE (12:11)
--- NOTE | 2020-02-23 14:54 | HP ---
Admitting History and Physical - Primary Care Physician PCP: Sebastian Arriaga - Admission Chief Complaint: Urinary retention/ BPH/ TURP today by Dr Jj History Source: Patient - Past Medical History POK[employer] PROP [employer]ER: Yes: Peripheral Neuropathy Cardiovascular: Yes: CAD, HTN, Hyperlipdemia Pulmonary: Yes: Bronchitis, COPD, Pneumonia, Sleep Apnea, Other (H/O COVID-19 Pneumonia/COPD/S/P Respiratory failure H/O Sleep Apnea H/O Bipap). No: Asthma, Cancer, O2 Dependent, Previously Intubated, Pulmonary Embolus, Pulmonary Fibrosis Gastrointestinal: Yes: GERD Renal/: Yes: BPH, UTI Infectious Disease: Yes: Other (s/p covid 19) Musculoskeletal: Yes: Chronic low back pain, Osteoarthritis (Lumbar Radiculopathy) Dermatology: Yes: Other - Smoking History Smoking history: Never smoked Have you smoked in the past 12 months: No - Alcohol/Substance Use Hx Alcohol Use: No - Social History Usual Living Arrangement: Yes: With Spouse ADL: Independent History of Recent Travel: No Home Medications - Allergies Allergies/Adverse Reactions: Allergies Allergy/AdvReac Type Severity Reaction Status Date / Time codeine [Codeine] Allergy Verified 02/23/20 11:01 Penicillins Allergy Verified 02/23/20 11:01 - Home Medications Home Medications: Ambulatory Orders Aspirin [ASA -] 81 mg PO DAILY 11/05/18 Clopidogrel Bisulfate [Plavix] 75 mg PO DAILY 11/05/18 Potassium Chloride [Klor-Con M20] 20 meq PO DAILY 11/05/18 Tamsulosin HCl [Flomax] 0.8 mg PO DAILY 11/05/18 Albuterol Sulfate [Proair Hfa] 8.5 gm IH PRN 09/25/19 Amlodipine Besylate 5 mg PO BID 09/25/19 Atorvastatin Ca [Lipitor] 80 mg PO HS 09/25/19 Carvedilol [Coreg -] 12.5 mg PO BID 09/25/19 Gabapentin 400 mg PO PRN PRN 09/25/19 Losartan Potassium 25 mg PO DAILY 09/25/19 Torsemide 20 mg PO DAILY 09/25/19 Umeclidinium Brm/Vilanterol Tr [Anoro Ellipta 62.5-25 Mcg INH] 1 each IH DAILY 09/25/19 Sulfamethoxazole/Trimethoprim [Bactrim Ds -] 1 tab PO BID #14 tablet 02/23/20 Physical Examination Vital Signs: Vital Signs Temperature 97.7 F 02/23/20 12:57 Pulse Rate 59 L 02/23/20 14:30 Respiratory Rate 16 02/23/20 14:30 Blood Pressure 140/60 02/23/20 14:30 O2 Sat by Pulse Oximetry (%) 99 02/23/20 14:30
[2020-02-23] MEDS: CLINDAMYCIN 600MG PREMIX IVPB 600 MG/50 ML BAG IVPB SCH (17:38)
[2020-02-23] MEDS ORDERED: ATORVASTATIN CA 80 MG TABLET (FP) PO SCH (22:00)
[2020-02-23] MEDS: amLODIPine BESYLATE 5 MG TABLET (FP) PO SCH (22:12)
[2020-02-23] MEDS: CARVEDILOL 12.5 MG TABLET (FP) PO SCH (22:13)
[2020-02-24] MEDS ORDERED: ACETAMINOPHEN 325 MG TABLET (FP) PO PRN
[2020-02-24] MEDS: CLINDAMYCIN 600MG PREMIX IVPB 600 MG/50 ML BAG IVPB SCH ×2 (01:54→09:17)
[2020-02-24 08:23] LABS: BASO % 0.4 % (0-2.0); EOS % 2.4 % (0-4.5); HEMATOCRIT 32.5 % (35.4-49); HEMOGLOBIN 10.8 GM/dL (11.7-16.9); LYMPH % 14.3 % (8-40); MCH 28.2 pg (25.7-33.7); MCHC 33.4 g/dl (32.0-35.9); MEAN CELL VOLUME 84.6 fl (80-96); MEAN PLT VOLUME 8.7 fl (7.5-11.1); MONO % 9.4 % (3.8-10.2); NEUT % 73.5 % (42.8-82.8); PLATELET COUNT 165 K/MM3 (134-434); RBC 3.84 M/mm3 (4.00-5.60); RDW 16.1 % (11.9-15.9); WHITE BLOOD COUNT 6.8 K/mm3 (4.0-10.0)
--- NOTE | 2020-02-24 08:28 | OP ---
DATE OF OPERATION: 02/23/2020 PREOPERATIVE DIAGNOSIS: Benign prostatic hypertrophy, urinary retention. POSTOPERATIVE DIAGNOSIS: Benign prostatic hypertrophy, urinary retention. PROCEDURE: Bipolar transurethral resection of the prostate. SURGEON: Watson Jj MD WIRE STRAIGHTENING MACHINE OPERATOR: None. ANESTHESIA: Spinal. ANESTHESIOLOGIST: Donny Umaña MD SPECIMEN: Prostate tissue. CULTURES: None. DRAINS: A 22-[place] 3-way Dove catheter, 40 mL in the balloon. ESTIMATED BLOOD LOSS: 50 mL. COMPLICATIONS: None. DESCRIPTION OF PROCEDURE: The patient was brought in the operating room, placed on the operating table in a supine position. After administration of spinal anesthesia, intravenous antibiotics were administered. Sequential compression devices were placed. Indwelling Dove catheter was removed. The genitals were prepped and draped in the usual sterile manner. The 26-[place]gian resectoscope sheath with visualizing obturator was inserted into the bladder under direct vision. Anterior urethra was normal. The prostatic urethra demonstrated a 5-cm prostatic urethra with severe bilobar occlusion. The bladder was entered and thoroughly inspected. There were no foreign bodies, tumors, stones, inflammation. Both ureteral orifices were in their usual location with clear efflux bilaterally. Now the working element Rodriguez bipolar resectoscope was inserted, and TURP was performed in a standard fashion by first creating a groove at the 2 o'clock position from the area of the bladder neck to the verumontanum, down to the level of the capsular fibers. Left lateral lobe of the prostate was then resected sequentially from the 2 to the 6 o'clock position from the area of the bladder neck, the verumontanum, down to the level of the capsular fibers. In a similar manner, the right lateral lobe was resected. The roof of the prostate was resected, and the floor of the prostate was resected. All obstructive prostatic tissue from the bladder neck the verumontanum was resected down to capsular fibers. All resected prostatic tissue was now removed from the bladder using an [employer] evacuator. Hemostasis was assured with electrocautery. The bladder was left full, instruments removed. A 22-[place] 3-way Dove catheter was inserted, 30 mL placed in the balloon, placed on continuous bladder irrigation which returned minimally blood tinged. He tolerated the procedure well, was transferred to the recovery room in stable condition. WATSON JJ M.D. [id number]
[2020-02-24 08:39] LABS: BLOOD UREA NITROGEN 21.7 mg/dL (7-18); CALCIUM 8.5 mg/dL (8.5-10.1); CREATININE 1.1 mg/dL (0.55-1.3); POTASSIUM 3.6 mmol/L (3.5-5.1)
[2020-02-24] MEDS ORDERED: PT OWN MED DRAWER 7, Y5N ONE (09:13)
[2020-02-24] MEDS: amLODIPine BESYLATE 5 MG TABLET (FP) PO SCH (09:17)
[2020-02-24] MEDS: CARVEDILOL 12.5 MG TABLET (FP) PO SCH (09:17)
[2020-02-24 10:48] VITALS: BP 154/77; PULSE 77; TEMP 98.2
--- NOTE | 2020-02-24 18:37 | PN ---
Progress Note, Physician History of Present Illness: Pt doing well post op day one Pt will go home Fu with Dr Jj Urology - Objective Vital Signs: Vital Signs Temperature 98.2 F 02/24/20 08:25 Pulse Rate 77 02/24/20 08:25 Respiratory Rate 20 02/24/20 08:25 Blood Pressure 154/77 02/24/20 08:25 O2 Sat by Pulse Oximetry (%) 96 02/23/20 16:00 Constitutional: Yes: No Distress Eyes: Yes: EOM Intact HENT: Yes: Atraumatic, Normocephalic Neck: Yes: Supple, Trachea Midline Cardiovascular: Yes: Regular Rate and Rhythm, S1, S2 Respiratory: Yes: Regular, CTA Bilaterally Gastrointestinal: Yes: Normal Bowel Sounds, Soft Labs: CBC, BMP 02/24/20 07:05 02/24/20 06:00 Problem List - Problems (1) Acute [place], inferior wall, initial episode of care Code(s): I21.19 - STEMI INVOLVING OTH CORONARY ARTERY OF INFERIOR WALL (2) BPH (benign prostatic hyperplasia) Code(s): N40.0 - BENIGN PROSTATIC HYPERPLASIA WITHOUT LOWER URINRY TRACT SYMP (3) COPD (chronic obstructive pulmonary disease) with acute bronchitis Code(s): J44.0 - CHR OBSTRUCTIVE PULMON DISEASE WITH (ACUTE) LOWER RESP INFCT; J20.9 - ACUTE BRONCHITIS, UNSPECIFIED (4) Coronary artery disease Code(s): I25.10 - ATHSCL HEART DISEASE OF [place] CORONARY ARTERY W/O ANG PCTRS (5) HLD (hyperlipidemia) Code(s): E78.5 - HYPERLIPIDEMIA, UNSPECIFIED Qualifiers: Hyperlipidemia type: pure hypercholesterolemia Qualified Code(s): E78.00 - Pure hypercholesterolemia, unspecified; E78.0 - Pure hypercholesterolemia Assessment/Plan Pt had TURP under spinal Pt doing well today No Fever No SOB No chest pain Pt will Fu in my office in one week
== END 2020-02-24 13:42 | disposition home or self-care (01) ==
LOC: JASUSAT 05:02 → J6S 15:29 → JASUSAT 02-24 13:42
PROVIDERS: ATTEND Urology
PROC: 0V507ZZ Destruction of Prostate, Via Natural or Artificial Opening (ICD-10-PCS; principal; 2020-02-23 13:00)
DX: N40.1 Benign prostatic hyperplasia with lower urinary tract symptoms (principal); R33.8 Other retention of urine
CPT/HCPCS: 36415; 80048; 82962; 85025; 94760

== ENCOUNTER 2020-03-03 19:53 | Inpatient (IN) | payer OTHER, BC ==
[~2020-03-03 19:53] MED LIST: CEFEPIME 1 GM in DEXTROSE 5%-WATER - 50 ML IVPB SCH
--- NOTE | 2020-03-03 20:37 | PDOC ---
History of Present Illness - General Chief Complaint: SIRS, Suspected/Possible Stated Complaint: FEVER - History of Present Illness Initial Comments: The patient is a 74 year old male with a significant past medical history of HTN, HLD, CAD (s/p cardiac stenting), COPD, PE, pulmonary fibrosis who presents for evaluation of 2 days of fever and fatigue. The fever will resolve with Tylenol but recurs after 5-6 hours. He last took Tylenol at 1900 tonight S/p TURP 1 week ago w/ Dr. Jj and finished a course of ciprofloxacin today. He denies cough, chest pain, abdominal pain, N/V/D, dysuria, hematuria, difficulty urinating, or blood in his stool. 03/03/20 20:33 Past History - Medical History Allergies/Adverse Reactions: Allergies Allergy/AdvReac Type Severity Reaction Status Date / Time codeine [Codeine] Allergy Verified 03/03/20 20:10 Penicillins Allergy Verified 03/03/20 20:10 Home Medications: Ambulatory Orders Aspirin [ASA -] 81 mg PO DAILY 11/05/18 Clopidogrel Bisulfate [Plavix] 75 mg PO DAILY 11/05/18 Potassium Chloride [Klor-Con M20] 20 meq PO DAILY 11/05/18 Tamsulosin HCl [Flomax] 0.8 mg PO DAILY 11/05/18 Albuterol Sulfate [Proair Hfa] 8.5 gm IH PRN 09/25/19 Amlodipine Besylate 5 mg PO BID 09/25/19 Atorvastatin Ca [Lipitor] 80 mg PO HS 09/25/19 Carvedilol [Coreg -] 12.5 mg PO BID 09/25/19 Gabapentin 400 mg PO PRN PRN 09/25/19 Losartan Potassium 25 mg PO DAILY 09/25/19 Torsemide 20 mg PO DAILY 09/25/19 Umeclidinium Brm/Vilanterol Tr [Anoro Ellipta 62.5-25 Mcg INH] 1 each IH DAILY 09/25/19 Anemia: No Asthma: Yes Cancer: No Cardiac Disorders: Yes (MVP,STENT) CVA: No COPD: No CHF: No DVT: No Dementia: No Diabetes: No GI Disorders: Yes (DIVERTICULITIS,DIVERTICULOSIS,HEMORRHOIDS) Disorders: Yes (bph) HTN: Yes Hypercholesterolemia: Yes Liver Disease: No Seizures: No Thyroid Disease: No - Surgical History Abdominal Surgery: No Appendectomy: Yes (COLONOSCOPY) Cardiac Surgery: Yes (STENT) Cholecystectomy: No Lung Surgery: No Neurologic Surgery: No Orthopedic Surgery: No - Immunization History Immunization Up to Date: Yes - Psycho-Social/Smoking History Smoking History: Never smoked Have you smoked in the past 12 months: No - Substance Abuse Hx (Audit-C & DAST Scrn) How often the patient has a drink containing alcohol: Never Score: In Men: 4 or > Positive; In Women: 3 or > Positive: 0 Screen Result (Pos requires Nsg. Audit-10AR): Negative Review of Systems - Review of Systems Able to Perform ROS?: Yes Comments:: GENERAL/CONSTITUTIONAL: +fevers/chills/fatigue HEAD, EYES, EARS, NOSE AND THROAT: No change in vision. No change in hearing. No sore throat CARDIOVASCULAR: No chest pain or shortness of breath RESPIRATORY: Denies cough, hemoptysis GASTROINTESTINAL: No nausea, vomiting, diarrhea or constipation GENITOURINARY: No dysuria, hematuria, or difficulty with urination post operatively MUSCULOSKELETAL: No joint or muscle swelling or pain. No neck or back pain SKIN: No rash NEUROLOGIC: No headache, vertigo, loss of consciousness, or change in strength/sensation ENDOCRINE: No increased thirst. No abnormal weight change HEMATOLOGIC/LYMPHATIC: No anemia, easy bleeding, or history of blood clots ALLERGIC/IMMUNOLOGIC: No hives or skin allergy 03/03/20 20:41 Is the patient limited Malian proficient: No *Physical Exam - Vital Signs Last Vital Signs Temp Pulse Resp BP Pulse Ox 102.8 F H 82 20 172/64 H 96 03/03/20 20:07 03/03/20 20:07 03/03/20 20:07 03/03/20 20:07 03/03/20 20:07 - Physical Exam GENERAL: Awake, alert, and oriented to person/place/time, in no acute distress HEAD: No signs of trauma, normocephalic, atraumatic EYES: PERRLA, EOMI, sclera anicteric, conjunctiva clear ENT: Hearing grossly normal, nares patent, oropharynx clear without exudates. Moist mucosa LUNGS: No distress, speaks in full sentences, clear to auscultation bilaterally HEART: Regular rate and rhythm, normal S1 and S2, no murmurs appreciated, peripheral pulses normal and equal bilaterally ABDOMEN: Soft, nontender, normoactive bowel sounds. No guarding, no rebound EXTREMITIES: Normal inspection, Normal range of motion, no edema. No clubbing or cyanosis NEUROLOGICAL: Cranial nerves II through XII grossly intact. Normal speech, ambulates with walker, no focal sensorimotor deficits SKIN: Warm, Dry 03/03/20 20:41 ED Treatment Course - LABORATORY CBC & Chemistry Diagram: 03/03/20 21:00 03/03/20 21:00 Medical Decision Making - Medical Decision Making The patient is a 74 year old male with a significant past medical history of HTN, HLD, CAD (s/p cardiac stenting), COPD, PE, pulmonary fibrosis who presents for evaluation of 2 days of fever and fatigue. S/p TURP w/ Dr. Jj 1 week ago. Ddx: UTI, post-op infection, PNA, sepsis, not likely PE ED Course Sepsis labs sent Pt given IVF ECG w/ RBBB; HR 72; QTc 462; right axis deviation; no acute ischemic changes No leukocytosis Anemia noted, no indication for transfusion at this time Lytes overall unremarkable BILL noted Pt with UTI refractory to outpt abx (Ciprofloxacin) Cefepime and Vanc given for broad coverage Dr. Jj updated on pt status Plan for admission for UTI/sepsis and BILL Pt signed out to [facility] Admitting 03/03/20 22:36 Pt noted to be hypertensive, pt w/o JOHNSON, CP, SOB, or vision changes Will give home Coreg 12.5mg PO once that pt did not take this evening 03/04/20 02:03 Discharge - Discharge Information Problems reviewed: Yes Clinical Impression/Diagnosis: S/P TURP UTI (urinary tract infection) Qualifiers: Urinary tract infection type: acute cystitis Hematuria presence: with hematuria Qualified Code(s): N30.01 - Acute cystitis with hematuria Sepsis Qualifiers: Sepsis type: sepsis due to unspecified organism Sepsis acute organ dysfunction status: unspecified Qualified Code(s): A41.9 - Sepsis, unspecified organism Condition: Stable - Admission Yes - Follow up/Referral - Patient Discharge Instructions - Post Discharge Activity
[2020-03-03] MEDS ORDERED: LACTATED RINGERS SOLUTION 1000 ML INFUS.BAG IV ONE (21:15)
[2020-03-03 21:27] LABS: BASO % 0.4 % (0-2.0); EOS % 0.3 % (0-4.5); HEMOGLOBIN 9.9 GM/dL (11.7-16.9); LYMPH % 11.5 % (8-40); MCH 27.8 pg (25.7-33.7); MCHC 32.9 g/dl (32.0-35.9); MEAN CELL VOLUME 84.6 fl (80-96); MEAN PLT VOLUME 7.9 fl (7.5-11.1); MONO % 9.5 % (3.8-10.2); NEUT % 78.3 % (42.8-82.8); PLATELET COUNT 187 K/MM3 (134-434); RBC 3.54 M/mm3 (4.00-5.60); RDW 16.3 % (11.9-15.9); WHITE BLOOD COUNT 7.8 K/mm3 (4.0-10.0)
[2020-03-03 21:39] LABS: INR 1.2 (0.83-1.09); PROTHROMBIN TIME (PATIENT) 14.2 SEC (9.7-13.0)
[2020-03-03 21:42] LABS: ACTIVATED PTT 29.3 SECONDS (25.2-36.5)
[2020-03-03 22:08] LABS: EPI CELLS 6 /uL (0-25.1); HYALINE CASTS 1 /uL (0-3.1); URINE APPEARANCE TURBID; URINE BACTERIA 8565 /uL (0-1359); URINE BILIRUBIN NEGATIVE (NEGATIVE); URINE COLOR YELLOW; URINE GLUCOSE (UA) NEGATIVE (NEGATIVE); URINE KETONE NEGATIVE (NEGATIVE); URINE LEUK ESTERASE 3+ (NEGATIVE); URINE NITRITE POSITIVE (NEGATIVE); URINE PROTEIN 2+ (NEGATIVE); URINE RBC 1684 /uL (0-23.9); URINE UROBILINOGEN 0.2 mg/dL (0.2-1.0); URINE WBC 3343 /uL (0-25.8)
[2020-03-03 22:18] LABS: ALBUMIN 3.1 g/dl (3.4-5.0); BILIRUBIN,TOTAL 0.4 mg/dL (0.2-1); CALCIUM 8.5 mg/dL (8.5-10.1); TOT PROT 6.6 g/dl (6.4-8.2)
[2020-03-03] MEDS ORDERED: CEFEPIME HCL/D5W 2 GM/50 ML BAG IVPB ONE (22:20)
[2020-03-03] MEDS ORDERED: VANCOMYCIN 1 GM in D5W (PRE-DOCKED) 1,000 MG/250 ML IVPB ONE (22:20)
[2020-03-03] MEDS ORDERED: CEFEPIME HCL/D5W 1 GM/50 ML BAG IVPB ONE (22:22)
--- NOTE | 2020-03-03 22:41 | PDOC ---
Documentation entered by Jigna Juan SCRIBE, acting as scribe for An Modi MD. An Modi MD: This documentation has been prepared by the eYssica hernandez Nirvannie, SCRIBE, under my direction and personally reviewed by me in its entirety. I confirm that the documentation accurately reflects all work, treatment, procedures, and medical decision making performed by me. Attending Attestation - Resident Resident Name: ArmenSridhar - ED Attending Attestation I have performed the following: I have examined & evaluated the patient, The case was reviewed & discussed with the resident, I agree w/resident's findings & plan, Exceptions are as noted - HPI HPI: 03/03/20 20:57 The patient is a 74 year old male with a significant past medical history of HTN, HLD, CAD (s/p cardiac stenting), COPD, PE, pulmonary fibrosis who presents for evaluation of 1 day of fever, generalized weakness, and body aches. Patient took Tylenol approximately 30min prior to arrival, without relief, prompting his arrival to the ED. Pt had recent procedure and was on abx and just completed the course of abx Allergies: codeine, pcn - Physicial Exam PE: 03/03/20 22:32 General: non-toxic appearing Chest: CTAB, good air entry, no wheezes rales or rhonchi CVS: + s1 s2, RRR Abdomen: soft, nt nd, no rebound, no guarding, no masses Extremities: warm and well perfused Neuro: speech fluent, face symmetric, awake, alert, responds approrpaitely to questions, no focal deficits - Critical Care Time Total Critical Care Time: 30 Critical Care Statement: The care of this patient involved high complexity decision making to prevent further life threatening deterioration of the patient's condition and/or to evaluate & treat vital organ system(s) failure or risk of failure. - Medical Decision Making 03/03/20 22:51 74 yo M here with fever and recent procedure, concern for urosepsis. Plan: -labs -cxr -COVID swab -urine -tylenol as needed (took a few hours prior to arrival) -IVF -vanc -cefepime -contacted pt. urologist to update that pt was here and was being admitted -admit This clinical encounter is taking place during a federal and state health care emergency attributable to the novel [place] Virus pandemic. The [place] of the Department of Health and Human Services has declared, pursuant to the Public Health Service Act 319F-3 (42 U.S.C. 247d-6d), that a covered persons activities related to medical countermeasures against COVID-19 will be immune from liability under Federal and State law. Heart Score/ECG Review - ECG Impressions Comment:: 03/03/20 22:54 sinus, rate 72, no ST elevations or depressions Discharge - Discharge Information Problems reviewed: Yes Clinical Impression/Diagnosis: S/P TURP UTI (urinary tract infection) Qualifiers: Urinary tract infection type: acute cystitis Hematuria presence: with hematuria Qualified Code(s): N30.01 - Acute cystitis with hematuria Sepsis Qualifiers: Sepsis type: sepsis due to unspecified organism Sepsis acute organ dysfunction status: unspecified Qualified Code(s): A41.9 - Sepsis, unspecified organism - Follow up/Referral - Patient Discharge Instructions - Post Discharge Activity
[2020-03-03] MEDS ORDERED: GABAPENTIN 400 MG CAPSULE PO PRN (23:30)
[2020-03-03] MEDS ORDERED: ALBUTEROL SO4 HFA INHALER IH PRN (23:30)
[2020-03-03] MEDS ORDERED: amLODIPine BESYLATE 5 MG TABLET (FP) PO ONE (23:45)
[2020-03-03] MEDS ORDERED: VANCOMYCIN 1 GRAM (PRE-DOCKED) 1,000 MG/250 ML BAG IVPB ONE (23:49)
[2020-03-03] MEDS: SODIUM CHLORIDE 1,000 ML IV SCH (23:50)
--- NOTE | 2020-03-04 00:02 | HP ---
CHIEF COMPLAINT:fever PCP:Dr. Arriaga Urologist: Dr. Jj Virtualization Engineer: Dr. Arguello HISTORY OF PRESENT ILLNESS: This is a 74 year old male with a past medical history of hypertension, hyperlipidemia, coronary artery disease s/p stent in 2018 at [facility], COPD, hx of PE, pulmonary fibrosis and BPH who had TURP by Dr. Jj 3 days ago here at [facility]. He has been taking Cipro for the past 7 days. He presents for evaluation of fever of 102, chills and generalized weakness. He reports he took tylenol around 7pm this evening for fever. He denies cough, chest pain or shortness of breath. ER course notable for a UTI and acute kidney injury. UA with turbid urine, 3+ leukoesterase, + nitrite, 3+ blood and WBC's 3343. Labs notable for a WBC 7.8 and lactic acid 1.6, hgb 9.9 and hct 30 (prior 11.4/ 33.2 in 2018) He was given a dose of IV Cefepime 1 gm and IV Vancomycin 1gm. Acute kidney injury- BUN 30/creatinine 2.0(prior creatinine 1.0-1.2 in 2018 ) /sodium 139/ potassium 4.0. Recent Travel: no PAST MEDICAL HISTORY: Htn Hld CAD s/p stent in 2018 COPD PE pulmonary fobrosis BPH PAST SURGICAL HISTORY: TURP- [address] Jj Social History: Smoking:no Alcohol:no Drugs: no Allergies codeine [Codeine] Allergy (Verified 03/03/20 20:10) Penicillins Allergy (Verified 03/03/20 20:10) HOME MEDICATIONS: Home Medications Medication Instructions Recorded Aspirin [ASA -] 81 mg PO DAILY 11/05/18 Clopidogrel Bisulfate [Plavix] 75 mg PO DAILY 11/05/18 Potassium Chloride [Klor-Con M20] 20 meq PO DAILY 11/05/18 Tamsulosin HCl [Flomax] 0.8 mg PO DAILY 11/05/18 Albuterol Sulfate [Proair Hfa] 8.5 gm IH PRN 09/25/19 Amlodipine Besylate 5 mg PO BID 09/25/19 Atorvastatin Ca [Lipitor] 80 mg PO HS 09/25/19 Carvedilol [Coreg -] 12.5 mg PO BID 09/25/19 Gabapentin 400 mg PO PRN PRN 09/25/19 Losartan Potassium 25 mg PO DAILY 09/25/19 Torsemide 20 mg PO DAILY 09/25/19 Umeclidinium Brm/Vilanterol Tr 1 each IH DAILY 09/25/19 [Anoro Ellipta 62.5-25 Mcg INH] Sulfamethoxazole/Trimethoprim 1 tab PO BID #14 tablet 02/23/20 [Bactrim Ds -] REVIEW OF SYSTEMS CONSTITUTIONAL: Absent: fever, chills, diaphoresis, generalized weakness, malaise, loss of appetite, weight change HEENT: Absent: rhinorrhea, nasal congestion, throat pain, throat swelling, difficulty swallowing, mouth swelling, ear pain, eye pain, visual changes CARDIOVASCULAR: Absent: chest pain, syncope, palpitations, irregular heart rate, lightheadedness, peripheral edema RESPIRATORY: Absent: cough, shortness of breath, dyspnea with exertion, orthopnea, wheezing, stridor, hemoptysis GASTROINTESTINAL: Absent: abdominal pain, abdominal distension, nausea, vomiting, diarrhea, constipation, melena, hematochezia GENITOURINARY: Absent: dysuria, frequency, urgency, hesitancy, hematuria, flank pain, genital pain MUSCULOSKELETAL: Absent: myalgia, arthralgia, joint swelling, back pain, neck pain SKIN: Absent: rash, itching, pallor HEMATOLOGIC/IMMUNOLOGIC: Absent: easy bleeding, easy bruising, lymphadenopathy, frequent infections ENDOCRINE: Absent: unexplained weight gain, unexplained weight loss, heat intolerance, cold intolerance NEUROLOGIC: Absent: headache, focal weakness or paresthesias, dizziness, unsteady gait, seizure, mental status changes, bladder or bowel incontinence PSYCHIATRIC: Absent: anxiety, depression, suicidal or homicidal ideation, hallucinations. PHYSICAL EXAMINATION Vital Signs - 24 hr 03/03/20 20:07 Temperature 102.8 F H Pulse Rate 82 Respiratory 20 Rate Blood Pressure 172/64 H O2 Sat by Pulse 96 Oximetry (%) Laboratory Results - last 24 hr 03/03/20 03/03/20 03/03/20 21:00 21:00 21:00 WBC 7.8 RBC 3.54 L Hgb 9.9 L Hct 30.0 L MCV 84.6 MCH 27.8 MCHC 32.9 RDW 16.3 H Plt Count 187 MPV 7.9 Absolute Neuts (auto) 6.1 Neutrophils % 78.3 Lymphocytes % 11.5 Monocytes % 9.5 Eosinophils % 0.3 D Basophils % 0.4 Nucleated RBC % 0 PT with INR 14.20 H INR 1.20 H PTT (Actin FS) 29.3 Sodium Potassium Chloride Carbon Dioxide Anion Gap BUN Creatinine Est GFR (CKD-EPI)AfAm Est GFR (CKD-EPI)NonAf Random Glucose Lactic Acid Calcium Total Bilirubin AST ALT Alkaline Phosphatase Troponin I < 0.02 Total Protein Albumin Urine Color Urine Appearance Urine pH Ur Specific [place] Urine Protein Urine Glucose (UA) Urine Ketones Urine Blood Urine Nitrite Urine Bilirubin Urine Urobilinogen Ur Leukocyte Esterase Urine WBC (Auto) Urine RBC (Auto) Urine Casts (Auto) U Epithel Cells (Auto) Urine Bacteria (Auto) 03/03/20 03/03/20 03/03/20 21:00 21:00 21:00 WBC RBC Hgb Hct MCV MCH MCHC RDW Plt Count MPV Absolute Neuts (auto) Neutrophils % Lymphocytes % Monocytes % Eosinophils % Basophils % Nucleated RBC % PT with INR INR PTT (Actin FS) Sodium 139 Potassium 4.0 Chloride 106 Carbon Dioxide 25 Anion Gap 8 BUN 30.0 H Creatinine 2.0 H Est GFR (CKD-EPI)AfAm 36.75 Est GFR (CKD-EPI)NonAf 31.71 Random Glucose 158 H Lactic Acid 1.6 Calcium 8.5 Total Bilirubin 0.4 AST 12 L ALT 20 Alkaline Phosphatase 64 Troponin I Total Protein 6.6 Albumin 3.1 L Urine Color Yellow Urine Appearance Turbid Urine pH 5.0 Ur Specific [place] 1.015 Urine Protein 2+ H Urine Glucose (UA) Negative Urine Ketones Negative Urine Blood 3+ H Urine Nitrite Positive H Urine Bilirubin Negative Urine Urobilinogen 0.2 Ur Leukocyte Esterase 3+ H Urine WBC (Auto) 3343 Urine RBC (Auto) 1684 Urine Casts (Auto) 1 U Epithel Cells (Auto) 6 Urine Bacteria (Auto) 8565 ASSESSMENT/PLAN: In summary this is a 74 year old male with a past medical history of hypertension, hyperlipidemia, coronary artery disease s/p stent in 2018 at [facility], COPD, hx of PE, pulmonary fibrosis and BPH who had TURP by Dr. Jj 3 days ago and has been taking Ciprofloxacin for the past 7 days. He presented with fever, chills and generalized weakness. He was found to have an abnormal UA consistent with a UTI despite being on oral antibiotics and acute kidney injury. #1 UTI in the setting of recent TURP symptomatic with fever, no leukocytosis and normal lactic acid c/w IV cefepime 1gm q8hr and vancomycin 1 gm daily pending urine and blood culture Infectious Diseases- Dr. Sexton consulted #2 Acute Kidney Injury BUN 30/creatinine 2.0, sodium 139 EF by echo in 05/2018 55-60%, on torsemide with potassium supplementation, has some bilateral leg swelling Received 1 Liter of LR, c/w IVF NS @ 50cc/hr started for hydration monitor for signs of fluid overload repeat BMP in am #3 BPH /S/P recent TURP c/w tamulosin Urology consulted- Dr. Jj #4 Hypertension uncontrolled SBP 150-170 range UA w/ 3+ proteinuria c/w amlodipine 5 mg bid and coreg 12.5mg twice daily was increased to coreg 25ng twice daily as he is hypertensive and losartan held with BILL will hold losartan, resume once renal function improves #5 Hyperlipidemia LFT's normal c/w statin therapy #6 Coronary Artery Disease asymptomatic of chest pain troponin normal c/w asa, plavix and statin therapy #7 COPD no acute exacerbation c/w albuterol inhaler prn #8 R/O COVID + fever and chills , no hypoxia or symptoms of SOB or cough follow up on COVID swab (taken 03/03) maintain strict droplet/contact isolation precautions maintain o2 sat >90% DVT Prophylaxsis lovenox 30mg daily (renal dosed) SCD's FEN IVF NS @ 50cc/hr BMP daily, replete electrolytes as needed low sodium , heart healthy diet Visit type - Emergency Visit Emergency Visit: Yes ED Registration Date: 03/03/20 Care time: The patient presented to the Emergency Department on the above date and was hospitalized for further evaluation of their emergent condition. - New Patient This patient is new to me today: Yes Date on this admission: 03/04/20 - Critical Care Critical Care patient: No
[2020-03-04] MEDS ORDERED: amLODIPine BESYLATE 5 MG TABLET (FP) ONE (00:37)
[2020-03-04] MEDS ORDERED: CARVEDILOL 12.5 MG TABLET (FP) PO ONE ×2 (01:41→05:26)
[2020-03-04] MEDS ORDERED: CARVEDILOL 12.5 MG TABLET (FP) ONE (01:43)
[2020-03-04] MEDS ORDERED: CEFEPIME HCL 1 GM VIAL (RESTRICTED TO ID) ONE ×3 (05:33→19:48)
[2020-03-04] MEDS ORDERED: DEXTROSE 5%-WATER - 50 ML IVPB ONE ×2 (05:34→14:34)
[2020-03-04] MEDS: CEFEPIME 1 GM in DEXTROSE 5%-WATER - 50 ML IVPB SCH ×2 (05:39→14:41)
--- NOTE | 2020-03-04 07:38 | CONSULT ---
Consult Consult Specialty:: Nephrology Reason for Consultation:: BILL - History of Present Illness Chief Complaint: fever History of Present Illness: Pt is a 74 year old male with pmhx of htn, hld, cad, copd, PE, pulm fibrosis, and bph who presents with fever of 102. HE recently had a TURP about 4 days ago. He says he was on cipro. He had hematuria after the procedure which did improve. He was found to have elevated fish technologist and I was called to evaluate him. He denies shortness of breath or palpitations. He says he feels better today and that the fever is improved. 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 Cardio/Vascular: Yes: CAD, HTN, Hyperlipdemia Pulmonary: Yes: Bronchitis, COPD, Pneumonia, Sleep Apnea, Other (H/O COVID-19 Pneumonia/COPD/S/P Respiratory failure H/O Sleep Apnea H/O Bipap) Gastrointestinal: Yes: GERD Renal/: Yes: BPH, UTI Infectious Disease: Yes: Other (s/p covid 19) Musculoskeletal: Yes: Chronic low back pain, Osteoarthritis (Lumbar Radi culopathy) Dermatology: Yes: Other - Alcohol/Substance Use Hx Alcohol Use: No - Smoking History Smoking history: Never smoked Have you smoked in the past 12 months: No - Social History ADL: Independent History of Recent Travel: No Home Medications - Allergies Allergies/Adverse Reactions: Allergies Allergy/AdvReac Type Severity Reaction Status Date / Time codeine [Codeine] Allergy Verified 03/03/20 20:10 Penicillins Allergy Verified 03/03/20 20:10 - Home Medications Home Medications: Ambulatory Orders Aspirin [ASA -] 81 mg PO DAILY 11/05/18 Clopidogrel Bisulfate [Plavix] 75 mg PO DAILY 11/05/18 Potassium Chloride [Klor-Con M20] 20 meq PO DAILY 11/05/18 Tamsulosin HCl [Flomax] 0.8 mg PO DAILY 11/05/18 Albuterol Sulfate [Proair Hfa] 8.5 gm IH PRN 09/25/19 Amlodipine Besylate 5 mg PO BID 09/25/19 Atorvastatin Ca [Lipitor] 80 mg PO HS 09/25/19 Carvedilol [Coreg -] 12.5 mg PO BID 09/25/19 Gabapentin 400 mg PO PRN PRN 09/25/19 Losartan Potassium 25 mg PO DAILY 09/25/19 Torsemide 20 mg PO DAILY 09/25/19 Umeclidinium Brm/Vilanterol Tr [Anoro Ellipta 62.5-25 Mcg INH] 1 each IH DAILY 09/25/19 Family Medical History Family History: Denies Review of Systems - Review of Systems Constitutional: reports: Fever, Malaise Eyes: reports: No Symptoms HENT: reports: No Symptoms Neck: reports: No Symptoms Cardiovascular: reports: No Symptoms Respiratory: reports: No Symptoms Gastrointestinal: reports: No Symptoms Genitourinary: reports: Hematuria Musculoskeletal: reports: No Symptoms Integumentary: reports: No Symptoms Neurological: reports: No Symptoms Endocrine: reports: No Symptoms Hematology/Lymphatic: reports: No Symptoms Psychiatric: reports: No Symptoms Physical Exam Vital Signs: Vital Signs Temperature 97.5 F L 03/04/20 06:00 Pulse Rate 84 03/04/20 06:00 Respiratory Rate 16 03/04/20 06:00 Blood Pressure 177/75 H 03/04/20 06:00 O2 Sat by Pulse Oximetry (%) 98 03/04/20 03:19 Constitutional: Yes: Calm Eyes: Yes: Conjunctiva Clear HENT: Yes: Atraumatic Neck: Yes: Supple Cardiovascular: Yes: S1, S2 Respiratory: Yes: CTA Bilaterally Gastrointestinal: Yes: Normal Bowel Sounds, Soft Renal/: Yes: WNL Musculoskeletal: Yes: WNL Edema: No Neurological: Yes: Oriented Psychiatric: Yes: Oriented Labs: CBC, BMP 03/03/20 21:00 03/03/20 21:00 Laboratory Tests 03/03/20 03/03/20 03/04/20 21:00 21:00 08:27 Hgb 9.9 L 10.3 L Sodium 139 Potassium 4.0 BUN 30.0 H Creatinine 2.0 H 03/04/20 08:27 Hgb Sodium 139 Potassium 3.2 L BUN 25.4 H Creatinine 1.5 H Imaging - Results Chest X-ray: Report Reviewed Problem List - Problems (1) BILL (acute kidney injury) Code(s): N17.9 - ACUTE KIDNEY FAILURE, UNSPECIFIED (2) S/P TURP Code(s): Z90.79 - ACQUIRED ABSENCE OF OTHER GENITAL ORGAN(S) (3) Sepsis Code(s): A41.9 - SEPSIS, UNSPECIFIED ORGANISM Qualifiers: Sepsis type: sepsis due to unspecified organism Sepsis acute organ dysfunction status: unspecified Qualified Code(s): A41.9 - Sepsis, unspecified organism (4) UTI (urinary tract infection) Code(s): N39.0 - URINARY TRACT INFECTION, SITE NOT SPECIFIED Qualifiers: Urinary tract infection type: acute cystitis Hematuria presence: with hematuria Qualified Code(s): N30.01 - Acute cystitis with hematuria Assessment/Plan Current Medications Generic Name Dose Route Start Last Admin Trade Name Freq PRN Reason Stop Dose Admin Acetaminophen 650 mg 03/03/20 23:37 Tylenol - PO Q6H PRN FEVER Albuterol Sulfate 2 puff 03/03/20 23:30 Ventolin Hfa Inhaler - IH Q6H PRN SHORTNESS OF BREATH Amlodipine Besylate 10 mg 03/04/20 10:00 Norvasc - PO DAILY [facility] Aspirin 81 mg 03/04/20 10:00 Asa - PO DAILY [facility] Atorvastatin Calcium 80 mg 03/04/20 22:00 Lipitor - PO HS [facility] Carvedilol 25 mg 03/04/20 10:00 Coreg - PO BID [facility] Clopidogrel Bisulfate 75 mg 03/04/20 10:00 Plavix - PO DAILY [facility] Enoxaparin Sodium 30 mg 03/04/20 10:00 Lovenox - SQ DAILY [facility] Gabapentin 400 mg 03/03/20 23:30 Neurontin - PO Q12H PRN PAIN Sodium Chloride 1,000 mls @ 50 mls/hr 03/03/20 23:45 03/03/20 23:50 Normal Saline - IV 50 mls/hr ASDIR RYLAN Administration Cefepime HCl 1 gm in 50 mls @ 100 mls/hr 03/04/20 02:00 Maxipime 1 Gm Premix Ivpb IVPB Q8H-IV RYLAN Protocol Vancomycin HCl 1,000 mg in 250 mls @ 250 mls/hr 03/04/20 10:00 Vancomycin (Pre-Docked) IVPB 03/04/20 10:59 ONCE ONE Cefepime HCl 1 gm/ Dextrose 50 mls @ 100 mls/hr 03/04/20 06:00 03/04/20 05:39 IVPB 03/04/20 14:29 100 mls/hr Q8H RYLAN Administration Potassium Chloride 20 meq 03/04/20 10:00 K-Dur - PO DAILY [facility] Tamsulosin HCl 0.8 mg 03/04/20 10:00 Flomax - PO DAILY [facility]AN Torsemide 20 mg 03/04/20 10:00 Demadex - PO DAILY [facility]AN Umeclidinium/Vilanterol 1 puff 03/04/20 10:00 Anoro Ellipta 62.5-25 Mcg Inh IH DAILY [facility] Vancomycin HCl 1,000 mg 03/04/20 10:00 Vancomycin (Pre-Docked) IVPB DAILY [facility] Protocol Impression 1. BILL 2. sepsis 3. hx PE 4. pulm fibrosis 5. s/p TURP 6. copd 7. cad Plan - renal function improving - bill likely from sepsis - follow cultures - replace potassium - hold torsemide today - bp improved - decrease rate of fluids - cont abx - check renal ultrasound - renal function improved with fluids
[2020-03-04] MEDS ORDERED: PT OWN MED DRAWER 7, Y5N ONE (08:49)
[2020-03-04 08:55] LABS: HEMATOCRIT 31.5 % (35.4-49); HEMOGLOBIN 10.3 GM/dL (11.7-16.9); MCH 27.6 pg (25.7-33.7); MCHC 32.6 g/dl (32.0-35.9); MEAN CELL VOLUME 84.7 fl (80-96); MEAN PLT VOLUME 7.6 fl (7.5-11.1); PLATELET COUNT 173 K/MM3 (134-434); RBC 3.72 M/mm3 (4.00-5.60); RDW 16.1 % (11.9-15.9); WHITE BLOOD COUNT 7.5 K/mm3 (4.0-10.0)
[2020-03-04 09:24] LABS: BLOOD UREA NITROGEN 25.4 mg/dL (7-18); CALCIUM 8.2 mg/dL (8.5-10.1); CREATININE 1.5 mg/dL (0.55-1.3); POTASSIUM 3.2 mmol/L (3.5-5.1)
[2020-03-04] MEDS ORDERED: CARVEDILOL 12.5 MG TABLET (FP) PO SCH (10:00)
[2020-03-04] MEDS ORDERED: VANCOMYCIN 1 GRAM (PRE-DOCKED) 1,000 MG/250 ML BAG IVPB ONE (10:00)
[2020-03-04] MEDS ORDERED: VANCOMYCIN 1 GM in D5W (PRE-DOCKED) 1,000 MG/250 ML IVPB SCH (10:00)
[2020-03-04] MEDS ORDERED: LOSARTAN POTASSIUM 25 MG TABLET PO SCH (10:00)
[2020-03-04] MEDS: CARVEDILOL 25 MG TABLET (FP) PO SCH ×2 (10:51→21:30)
[2020-03-04] MEDS: POTASSIUM CHLORIDE TABS 20 MEQ TABLET.ER (FP) PO SCH (10:51)
[2020-03-04] MEDS: amLODIPine BESYLATE 10 MG TABLET (FP) PO SCH (10:51)
[2020-03-04] MEDS: ENOXAPARIN NA (PORCINE) 30 MG/0.3 ML DISP.SYRIN SQ SCH (10:51)
[2020-03-04] MEDS: TAMSULOSIN HCL 0.4 MG CAP PO SCH (10:51)
[2020-03-04] MEDS: CLOPIDOGREL BISULFATE 75 MG TABLET (FP) PO SCH (10:51)
[2020-03-04] MEDS: ASPIRIN 81 MG CHEWABLE TABLETS PO SCH (10:51)
[2020-03-04] MEDS: UMECLIDINIUM/VILANTEROL (ANORO) 62.5/25 MCG INHALER IH SCH (10:54)
--- NOTE | 2020-03-04 11:01 | PN ---
Progress Note, Physician History of Present Illness: 74 year old male with a past medical history of hypertension, hyperlipidemia, coronary artery disease s/p stent in 2018 at [facility], COPD, hx of PE, pulmonary fibrosis and BPH who had TURP by Dr. Jj 3 days ago here at [facility]. He has been taking Cipro for the past 7 days. He presents for evaluation of fever of 102, chills and generalized weakness. He reports he took tylenol around 7pm this evening for fever. He denies cough, chest pain or shortness of breath. UA with turbid urine, 3+ leukoesterase, + nitrite, 3+ blood and WBC's 3343. Labs notable for a WBC 7.8 and lactic acid 1.6, hgb 9.9 and hct 30 (prior 11.4/ 33.2 in 2018) He was given a dose of IV Cefepime 1 gm and IV Vancomycin 1gm. Acute kidney injury- BUN 30/creatinine 2.0(prior creatinine 1.0-1.2 in 2018 ) /sodium 139/ potassium 4.0. Spoke to ER Pt had H/O COVID-19 S/P Intubation and Extubation H/O Drop in Hb S/P 2 units PRBC during COVID Need to R/O PE US duplex both legs BUN/Creat Prerenal Lovenox 60 SQ stat discussed with ER Dr Heredia ID consult sepsis from TURP Decompensated CHF /Afib new onset - Current Medication List Current Medications: Active Medications Acetaminophen (Tylenol -) 650 mg PO Q6H PRN PRN Reason: FEVER Albuterol Sulfate (Ventolin Hfa Inhaler -) 2 puff IH Q6H PRN PRN Reason: SHORTNESS OF BREATH Amlodipine Besylate (Norvasc -) 10 mg PO DAILY [facility] Aspirin (Asa -) 81 mg PO DAILY [facility] Atorvastatin Calcium (Lipitor -) 80 mg PO HS [facility] Carvedilol (Coreg -) 25 mg PO BID [facility] Clopidogrel Bisulfate (Plavix -) 75 mg PO DAILY [facility] Enoxaparin Sodium (Lovenox -) 30 mg SQ DAILY [facility] Gabapentin (Neurontin -) 400 mg PO Q12H PRN PRN Reason: PAIN Sodium Chloride (Normal Saline -) 1,000 mls @ 50 mls/hr IV ASDIR [facility] Last Admin: 03/03/20 23:50 Dose: 50 mls/hr Documented by: Cefepime HCl (Maxipime 1 Gm Premix Ivpb) 1 gm in 50 mls @ 100 mls/hr IVPB Q8H- IV [facility]AN; Protocol Vancomycin HCl (Vancomycin (Pre-Docked)) 1,000 mg in 250 mls @ 250 mls/hr IVPB ONCE ONE Stop: 03/04/20 10:59 Cefepime HCl 1 gm/ Dextrose 50 mls @ 100 mls/hr IVPB Q8H [facility] Stop: 03/04/20 14:29 Last Admin: 03/04/20 05:39 Dose: 100 mls/hr Documented by: Potassium Chloride (K-Dur -) 20 meq PO DAILY [facility] Tamsulosin HCl (Flomax -) 0.8 mg PO DAILY [facility] Torsemide (Demadex -) 20 mg PO DAILY [facility] Umeclidinium/Vilanterol (Anoro Ellipta 62.5-25 Mcg Inh) 1 puff IH DAILY [facility] Vancomycin HCl (Vancomycin (Pre-Docked)) 1,000 mg IVPB DAILY [facility]; Protocol - Objective Vital Signs: Vital Signs Temperature 97.5 F L 03/04/20 06:00 Pulse Rate 84 03/04/20 06:00 Respiratory Rate 16 03/04/20 06:00 Blood Pressure 177/75 H 03/04/20 06:00 O2 Sat by Pulse Oximetry (%) 98 03/04/20 03:19 Constitutional: Yes: Anxious Eyes: Yes: Conjunctiva Clear, EOM Intact HENT: Yes: Atraumatic, Normocephalic Neck: Yes: Supple, Trachea Midline Cardiovascular: Yes: Regular Rate and Rhythm Respiratory: Yes: CTA Bilaterally Gastrointestinal: Yes: Normal Bowel Sounds, Soft Genitourinary: Yes: Other (S/P TURP) Musculoskeletal: Yes: Back Pain, Other (S/P Back surgery) Extremities: Yes: Other (Oedema) Edema: LLE: 1+, RLE: 1+ Peripheral Pulses WNL: Yes Labs: CBC, BMP 03/04/20 08:27 03/04/20 08:27 INR, PTT INR 1.20 (0.83-1.09) H 03/03/20 21:00 Problem List - Problems (1) Itthi-tk-pnhrezw kidney injury Code(s): N17.9 - ACUTE KIDNEY FAILURE, UNSPECIFIED; N18.9 - CHRONIC KIDNEY DISEASE, UNSPECIFIED Qualifiers: Chronic kidney disease stage: stage 2 (mild) (2) S/P TURP Code(s): Z90.79 - ACQUIRED ABSENCE OF OTHER GENITAL ORGAN(S) (3) Sepsis Code(s): A41.9 - SEPSIS, UNSPECIFIED ORGANISM Qualifiers: Sepsis type: sepsis due to unspecified organism Sepsis acute organ dysfunction status: unspecified Qualified Code(s): A41.9 - Sepsis, unspecified organism (4) UTI (urinary tract infection) Code(s): N39.0 - URINARY TRACT INFECTION, SITE NOT SPECIFIED Qualifiers: Urinary tract infection type: acute cystitis Hematuria presence: with hematuria Qualified Code(s): N30.01 - Acute cystitis with hematuria (5) Acute CA, inferior wall, initial episode of care Code(s): I21.19 - STEMI INVOLVING OTH CORONARY ARTERY OF INFERIOR WALL (6) Acute exacerbation of chronic obstructive pulmonary disease (COPD) Code(s): J44.1 - CHRONIC OBSTRUCTIVE PULMONARY DISEASE W (ACUTE) EXACERBATION (7) Calcaneal spur, right foot Code(s): M77.31 - CALCANEAL SPUR, RIGHT FOOT (8) HLD (hyperlipidemia) Code(s): E78.5 - HYPERLIPIDEMIA, UNSPECIFIED Qualifiers: Hyperlipidemia type: pure hypercholesterolemia Qualified Code(s): E78.00 - Pure hypercholesterolemia, unspecified; E78.0 - Pure hypercholesterolemia (9) Hypokalemia Code(s): E87.6 - HYPOKALEMIA (10) Hypoxia Code(s): R09.02 - HYPOXEMIA (11) Lumbar radiculopathy, chronic Code(s): M54.16 - RADICULOPATHY, LUMBAR REGION (12) NSTEMI (non-ST elevated myocardial infarction) Code(s): I21.4 - NON-ST ELEVATION (NSTEMI) MYOCARDIAL INFARCTION (13) Obesity (BMI 30.0-34.9) Code(s): E66.9 - OBESITY, UNSPECIFIED (14) Presence of drug-eluting stent in right coronary artery Code(s): Z95.5 - PRESENCE OF CORONARY ANGIOPLASTY IMPLANT AND GRAFT (15) Sciatica Code(s): M54.30 - SCIATICA, UNSPECIFIED SIDE Qualifiers: Laterality: right Qualified Code(s): M54.31 - Sciatica, right side (16) Shingles Code(s): B02.9 - ZOSTER WITHOUT COMPLICATIONS Qualifiers: Herpes zoster complications: without complications Qualified Code(s): B02.9 - Zoster without complications (17) Sleep apnea Code(s): G47.30 - SLEEP APNEA, UNSPECIFIED Qualifiers: Sleep apnea type: obstructive Qualified Code(s): G47.33 - Obstructive sleep apnea (adult) (pediatric) (18) Syncope Code(s): R55 - SYNCOPE AND COLLAPSE Assessment/Plan (1) Ytcvn-da-fmztqyn kidney injury Code(s): N17.9 - ACUTE KIDNEY FAILURE, UNSPECIFIED; N18.9 - CHRONIC KIDNEY DISEASE, UNSPECIFIED Qualifiers: Chronic kidney disease stage: stage 2 (mild) (2) S/P TURP Code(s): Z90.79 - ACQUIRED ABSENCE OF OTHER GENITAL ORGAN(S) (3) Sepsis Code(s): A41.9 - SEPSIS, UNSPECIFIED ORGANISM Qualifiers: Sepsis type: sepsis due to unspecified organism Sepsis acute organ dysfu nction status: unspecified Qualified Code(s): A41.9 - Sepsis, unspecified organism (4) UTI (urinary tract infection) Code(s): N39.0 - URINARY TRACT INFECTION, SITE NOT SPECIFIED Qualifiers: Urinary tract infection type: acute cystitis Hematuria presence: with hematuria Qualified Code(s): N30.01 - Acute cystitis with hematuria (5) Acute CA, inferior wall, initial episode of care Code(s): I21.19 - STEMI INVOLVING OTH CORONARY ARTERY OF INFERIOR WALL (6) Acute exacerbation of chronic obstructive pulmonary disease (COPD) Code(s): J44.1 - CHRONIC OBSTRUCTIVE PULMONARY DISEASE W (ACUTE) EXACERBATION (7) Calcaneal spur, right foot Code(s): M77.31 - CALCANEAL SPUR, RIGHT FOOT (8) HLD (hyperlipidemia) Code(s): E78.5 - HYPERLIPIDEMIA, UNSPECIFIED Qualifiers: Hyperlipidemia type: pure hypercholesterolemia Qualified Code(s): E78.00 - Pure hypercholesterolemia, unspecified; E78.0 - Pure hypercholesterolemia (9) Hypokalemia Code(s): E87.6 - HYPOKALEMIA (10) Hypoxia Code(s): R09.02 - HYPOXEMIA (11) Lumbar radiculopathy, chronic Code(s): M54.16 - RADICULOPATHY, LUMBAR REGION (12) NSTEMI (non-ST elevated myocardial infarction) Code(s): I21.4 - NON-ST ELEVATION (NSTEMI) MYOCARDIAL INFARCTION (13) Obesity (BMI 30.0-34.9) Code(s): E66.9 - OBESITY, UNSPECIFIED (14) Presence of drug-eluting stent in right coronary artery Code(s): Z95.5 - PRESENCE OF CORONARY ANGIOPLASTY IMPLANT AND GRAFT (15) Sciatica Code(s): M54.30 - SCIATICA, UNSPECIFIED SIDE Qualifiers: Laterality: right Qualified Code(s): M54.31 - Sciatica, right side (16) Shingles Code(s): B02.9 - ZOSTER WITHOUT COMPLICATIONS Qualifiers: Herpes zoster complications: without complications Qualified Code(s): B02.9 - Zoster without complications (17) Sleep apnea Code(s): G47.30 - SLEEP APNEA, UNSPECIFIED Qualifiers: Sleep apnea type: obstructive Qualified Code(s): G47.33 - Obstructive sleep apnea (adult) (pediatric) (18) Syncope Code(s): R55 - SYNCOPE AND COLLAPSE Pt Is better sepsis /TURP On IV antibiotics H/O COVID H/O COPD Prerenal Azotemia Resolved
[2020-03-04] MEDS: SODIUM CHLORIDE 1,000 ML IV SCH (11:33)
--- NOTE | 2020-03-04 11:49 | EKG ---
Test Reason : Blood Pressure : / mmHG Vent. Rate : 072 BPM Atrial Rate : 072 BPM P-R Int : 134 ms QRS Dur : 134 ms QT Int : 422 ms P-R-T Axes : 046 -12 000 degrees QTc Int : 462 ms NORMAL SINUS RHYTHM RIGHT BUNDLE BRANCH BLOCK ABNORMAL ECG WHEN COMPARED WITH ECG OF 14-FEB-2020 11:52, NO SIGNIFICANT CHANGE WAS FOUND Confirmed by TIN KAUR MD ([id number]) on 03/04/2020 11:48:57 AM Referred By: Confirmed By:TIN KAUR MD
--- NOTE | 2020-03-04 12:30 | CON.GU ---
Consult Consult Specialty:: Referred by:: Bart Reason for Consultation:: UTI - History of Present Illness Chief Complaint: fever History of Present Illness: 74 year old male with a past medical history of hypertension, hyperlipidemia, coronary artery disease s/p stent in 2018 at [facility], COPD, hx of PE, pulmonary fibrosis and BPH who had TURP by Dr. Jj 3 days ago here at [facility]. He has been taking Cipro for the past 7 days. He presents for evaluation of fever of 102, chills and generalized weakness. He reports he took tylenol around 7pm this evening for fever. He denies cough, chest pain or shortness of breath. cons req. ER course notable for a UTI and acute kidney injury. UA with turbid urine, 3+ leukoesterase, + nitrite, 3+ blood and WBC's 3343. Labs notable for a WBC 7.8 and lactic acid 1.6, hgb 9.9 and hct 30 (prior 11.4/ 33.2 in 2018) He was given a dose of IV Cefepime 1 gm and IV Vancomycin 1gm. Acute kidney injury- BUN 30/creatinine 2.0(prior creatinine 1.0-1.2 in 2018 ) /sodium 139/ potassium 4.0. Recent Travel: no PAST MEDICAL HISTORY: Htn Hld CAD s/p stent in 2018 COPD PE pulmonary fobrosis BPH PAST SURGICAL HISTORY: TURP- [address] 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 No: Asthma, Cancer, O2 Dependent, Previously Intubated, Pulmonary Embolus, Pulmonary Fibrosis Gastrointestinal: Yes: GERD Renal/: Yes: BPH, UTI Infectious Disease: Yes: Other (s/p covid 19) Musculoskeletal: Yes: Chronic low back pain, Osteoarthritis (Lumbar Radiculopathy) Dermatology: Yes: Other - Alcohol/Substance Use Hx Alcohol Use: No - Smoking History Smoking history: Never smoked Have you smoked in the past 12 months: No - Social History ADL: Independent History of Recent Travel: No Home Medications - Allergies Allergies/Adverse Reactions: Allergies Allergy/AdvReac Type Severity Reaction Status Date / Time codeine [Codeine] Allergy Verified 03/03/20 20:10 Penicillins Allergy Verified 03/03/20 20:10 - Home Medications Home Medications: Ambulatory Orders Aspirin [ASA -] 81 mg PO DAILY 11/05/18 Clopidogrel Bisulfate [Plavix] 75 mg PO DAILY 11/05/18 Potassium Chloride [Klor-Con M20] 20 meq PO DAILY 11/05/18 Tamsulosin HCl [Flomax] 0.8 mg PO DAILY 11/05/18 Albuterol Sulfate [Proair Hfa] 8.5 gm IH PRN 09/25/19 Amlodipine Besylate 5 mg PO BID 09/25/19 Atorvastatin Ca [Lipitor] 80 mg PO HS 09/25/19 Carvedilol [Coreg -] 12.5 mg PO BID 09/25/19 Gabapentin 400 mg PO PRN PRN 09/25/19 Losartan Potassium 25 mg PO DAILY 09/25/19 Torsemide 20 mg PO DAILY 09/25/19 Umeclidinium Brm/Vilanterol Tr [Anoro Ellipta 62.5-25 Mcg INH] 1 each IH DAILY 09/25/19 Review of Systems - Review of Systems Genitourinary: reports: Hematuria (resolved), Other (no weak stream). denies: Burning, Discharge, Dysuria, Flank Pain, Incontinence Physical Exam- Vital Signs: Vital Signs Temperature 98.4 F 03/04/20 10:00 Pulse Rate 76 03/04/20 10:00 Respiratory Rate 18 03/04/20 10:00 Blood Pressure 148/76 03/04/20 10:00 O2 Sat by Pulse Oximetry (%) 97 03/04/20 10:00 Labs: CBC, BMP 03/04/20 08:27 03/04/20 08:27 Problem List - Problems (1) BILL (acute kidney injury) Assessment/Plan: PVR Code(s): N17.9 - ACUTE KIDNEY FAILURE, UNSPECIFIED (2) S/P TURP Code(s): Z90.79 - ACQUIRED ABSENCE OF OTHER GENITAL ORGAN(S) (3) Sepsis Assessment/Plan: ur cx, iv abxs Code(s): A41.9 - SEPSIS, UNSPECIFIED ORGANISM Qualifiers: Sepsis type: sepsis due to unspecified organism Sepsis acute organ dysfunction status: unspecified Qualified Code(s): A41.9 - Sepsis, unspecified organism (4) UTI (urinary tract infection) Assessment/Plan: Ur cx, iv abxs Code(s): N39.0 - URINARY TRACT INFECTION, SITE NOT SPECIFIED Qualifiers: Urinary tract infection type: acute cystitis Hematuria presence: with hematuria Qualified Code(s): N30.01 - Acute cystitis with hematuria
--- NOTE | 2020-03-04 13:02 | CON.CARD ---
Consult Consult Specialty:: Cardiology Referred by:: Dr. Green Reason for Consultation:: Fevers, chills, diaphoresis - History of Present Illness Chief Complaint: Fevers, chills, diaphoresis History of Present Illness: This is a 74 year old male with a past medical history of hypertension, hyperlipidemia, coronary artery disease s/p stent in 2018 at [facility], COPD, hx of PE, Type 2 DM, pulmonary fibrosis and BPH who had TURP by Dr. Jj 3 days ago here at [facility]. He has been taking Cipro for the past 7 days. He presents for evaluation of fever of 102, chills, myalgias and generalized weakness. He reports he took tylenol around 7pm this evening for fever. He denies cough, chest pain, shortness of breath, near or true syncope, palpitations, orthopnea, PND or LE edema. Found to have sepsis source and BILL. Last visit 02/16/2020 for pre-procedure CV evaluation. 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 No: Asthma, Cancer, O2 Dependent, Previously Intubated, Pulmonary Embolus, Pulmonary Fibrosis Gastrointestinal: Yes: GERD Renal/: Yes: BPH, UTI Infectious Disease: Yes: Other (s/p covid 19) Musculoskeletal: Yes: Chronic low back pain, Osteoarthritis (Lumbar Radiculopathy) Dermatology: Yes: Other - Alcohol/Substance Use Hx Alcohol Use: No - Smoking History Smoking history: Never smoked Have you smoked in the past 12 months: No - Social History ADL: Independent History of Recent Travel: No Home Medications - Allergies Allergies/Adverse Reactions: Allergies Allergy/AdvReac Type Severity Reaction Status Date / Time codeine [Codeine] Allergy Verified 03/03/20 20:10 Penicillins Allergy Verified 03/03/20 20:10 - Home Medications Home Medications: Ambulatory Orders Aspirin [ASA -] 81 mg PO DAILY 11/05/18 Clopidogrel Bisulfate [Plavix] 75 mg PO DAILY 11/05/18 Potassium Chloride [Klor-Con M20] 20 meq PO DAILY 11/05/18 Tamsulosin HCl [Flomax] 0.8 mg PO DAILY 11/05/18 Albuterol Sulfate [Proair Hfa] 8.5 gm IH PRN 09/25/19 Amlodipine Besylate 5 mg PO BID 09/25/19 Atorvastatin Ca [Lipitor] 80 mg PO HS 09/25/19 Carvedilol [Coreg -] 12.5 mg PO BID 09/25/19 Gabapentin 400 mg PO PRN PRN 09/25/19 Losartan Potassium 25 mg PO DAILY 09/25/19 Torsemide 20 mg PO DAILY 09/25/19 Umeclidinium Brm/Vilanterol Tr [Anoro Ellipta 62.5-25 Mcg INH] 1 each IH DAILY 09/25/19 Review of Systems - Review of Systems Constitutional: reports: Chills, Fever, Lethargy Vital Signs: Vital Signs Temperature 98.4 F 03/04/20 10:00 Pulse Rate 76 03/04/20 10:00 Respiratory Rate 18 03/04/20 10:00 Blood Pressure 148/76 03/04/20 10:00 O2 Sat by Pulse Oximetry (%) 97 03/04/20 10:00 Constitutional: Yes: No Distress, Calm Neck: Yes: Supple Respiratory: Yes: Regular, Diminished, On Nasal O2 Gastrointestinal: Yes: Soft, Hypoactive Bowel Sounds Cardiovascular: Yes: Regular Rate and Rhythm JVD: No Carotid Bruit: No Heart Sounds: Yes: S1, S2 Murmur: Yes: Systolic Murmur Edema: No - Other Data Labs, Other Data: CBC, BMP 03/04/20 08:27 03/04/20 08:27 INR, PTT INR 1.20 (0.83-1.09) H 03/03/20 21:00 Troponin, BNP 03/03/20 21:00 Troponin I < 0.02 Troponin, BNP 03/03/20 21:00 Troponin I < 0.02 NSR @ 72 RBBB Prior Cardiac Procedures: Valve Surgery Imaging - Results Chest X-ray: Report Reviewed (No infiltrates or failure) Problem List - Problems (1) Tanie-dy-chgacbc kidney injury Code(s): N17.9 - ACUTE KIDNEY FAILURE, UNSPECIFIED; N18.9 - CHRONIC KIDNEY DISEASE, UNSPECIFIED Qualifiers: Chronic kidney disease stage: stage 2 (mild) (2) BILL (acute kidney injury) Code(s): N17.9 - ACUTE KIDNEY FAILURE, UNSPECIFIED (3) S/P TURP Code(s): Z90.79 - ACQUIRED ABSENCE OF OTHER GENITAL ORGAN(S) (4) Sepsis Code(s): A41.9 - SEPSIS, UNSPECIFIED ORGANISM Qualifiers: Sepsis type: sepsis due to unspecified organism Sepsis acute organ dysf unction status: unspecified Qualified Code(s): A41.9 - Sepsis, unspecified organism (5) UTI (urinary tract infection) Code(s): N39.0 - URINARY TRACT INFECTION, SITE NOT SPECIFIED Qualifiers: Urinary tract infection type: acute cystitis Hematuria presence: with hematuria Qualified Code(s): N30.01 - Acute cystitis with hematuria (6) Coronary artery disease Code(s): I25.10 - ATHSCL HEART DISEASE OF [place] CORONARY ARTERY W/O ANG PCTRS Qualifiers: Coronary Disease-Associated Artery/Lesion type: [place] artery [place] vs. transplanted heart: [place] heart Associated angina: without angina Qualified Code(s): I25.10 - Atherosclerotic heart disease of [place] coronary artery withou t angina pectoris (7) HLD (hyperlipidemia) Code(s): E78.5 - HYPERLIPIDEMIA, UNSPECIFIED Qualifiers: Hyperlipidemia type: pure hypercholesterolemia Qualified Code(s): E78.00 - Pure hypercholesterolemia, unspecified; E78.0 - Pure hypercholesterolemia (8) Hypertensive heart disease Code(s): I11.9 - HYPERTENSIVE HEART DISEASE WITHOUT HEART FAILURE Qualifiers: Heart failure presence: without heart failure Qualified Code(s): I11.9 - Hypertensive heart disease without heart failure (9) Presence of drug-eluting stent in right coronary artery Code(s): Z95.5 - PRESENCE OF CORONARY ANGIOPLASTY IMPLANT AND GRAFT (10) Sleep apnea Code(s): G47.30 - SLEEP APNEA, UNSPECIFIED Qualifiers: Sleep apnea type: obstructive Qualified Code(s): G47.33 - Obstructive sleep apnea (adult) (pediatric) Assessment/Plan 05/20/2018 Nuc stress: Mod inferior ischemia with small infarct, LVEF 52% 05/20/2018 Echo: Normal LV size with mod cLVH, LVEF 55-60%, mild LAE, mod MR, tr TR 05/21/2018 LHC performed at [facility] [place]/NSTEMI and moderate inferior ischemia. 2 vessel CAD 90-95% ostial LCx-OM (medium sized vessel) left alone, 90-95% prox RCA which was treated with implant Resolute [place] 4.0x18 mm FISH post- dilated with NC 4.5x15 balloon @ 14 SARAHY, normal LV fxn LVEF 65-70% with elevated LVEDP 27 mmHg, no aortic stenosis. Mynx deployed right SUPERVISOR WATERPROOFING access site, no complications. Recommend optimal medical therapy for secondary prevention of cardiovascular disease, consider PCI of LCx-OM if remains symptomatic despite meds, patient is candidate for cardiac rehab. 1. Sepsis source post TURP 2. COPD, pulm fibrosis 3. CAD s/p FISH RCA 4. Type 2 DM 5. BILL (prerenal) with proteinuria 6. OSAS on cpap 7. Hypertensive heart disease 8. Hyperlipidemia 9/ H/o PE P:1. IV Abx course per C&S, r/o COVID 2. Hold diuretics and losartan, judicious hydration pending renal fxn stabilization 3. BD, O2 to maintain saO2 >90% 3. Continue ASA 81 qd, Plavix 75 qd, Norvac 5 bid, Lipitor 80 qd, carvedilol 25 bid 4. Cpap nightly 5. Thank you for consultative opportunity
[2020-03-04] MEDS ORDERED: SODIUM CHLORIDE 1,000 ML IV SCH (13:55)
[2020-03-04] MEDS: TORSEMIDE 20 MG TABLET (FP) PO SCH (14:17)
[2020-03-04] MEDS ORDERED: POTASSIUM CHLORIDE ORAL LIQUID 20 MEQ/15 ML PO ONE (14:30)
--- NOTE | 2020-03-04 17:06 | CON.ID ---
Consult - History of Present Illness History of Present Illness: 74 y.o. male with PMH of BPH, s/p TURP on 02/23/20, CAD s/p stent in 2018, COPD, PE, pulmonary fibrosis, KENN, chronic LBP, HTN, HLD, + COVID-19 positive in October presents with c/o fever/chills, dysuria, and generalized weakness. Pt states he had the aguilar catheter removed on 02/26/20 and initial hematuria has resolved and has since completed a 7 day course of Ciprofloxacin but began having a fever and feeling unwell x 2 days. He denies any SOB/cough/CP/suprapubic or flank pain/hematuria/abd pain/n/v/d. In the ER noted to have temp of 102.8F with renal impairment and UA suggestive of a UTI. Pt has been started on broad spectrum antibiotics and today states he is feeling better. Currently he is alert and conversive and afebrile. 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 No: Asthma, Cancer, O2 Dependent, Previously Intubated, Pulmonary Embolus, Pulmonary Fibrosis Gastrointestinal: Yes: GERD Renal/: Yes: BPH, UTI Infectious Disease: Yes: Other (s/p covid 19) Musculoskeletal: Yes: Chronic low back pain, Osteoarthritis (Lumbar Radiculopathy) Dermatology: Yes: Other - Past Surgical History Past Surgical History: Yes: TURP - Alcohol/Substance Use Hx Alcohol Use: No - Smoking History Smoking history: Never smoked Have you smoked in the past 12 months: No - Social History ADL: Independent History of Recent Travel: No Home Medications - Allergies Allergies/Adverse Reactions: Allergies Allergy/AdvReac Type Severity Reaction Status Date / Time codeine [Codeine] Allergy Verified 03/03/20 20:10 Penicillins Allergy Verified 03/03/20 20:10 - Home Medications Home Medications: Ambulatory Orders Aspirin [ASA -] 81 mg PO DAILY 11/05/18 Clopidogrel Bisulfate [Plavix] 75 mg PO DAILY 11/05/18 Potassium Chloride [Klor-Con M20] 20 meq PO DAILY 11/05/18 Tamsulosin HCl [Flomax] 0.8 mg PO DAILY 11/05/18 Albuterol Sulfate [Proair Hfa] 8.5 gm IH PRN 09/25/19 Amlodipine Besylate 5 mg PO BID 09/25/19 Atorvastatin Ca [Lipitor] 80 mg PO HS 09/25/19 Carvedilol [Coreg -] 12.5 mg PO BID 09/25/19 Gabapentin 400 mg PO PRN PRN 09/25/19 Losartan Potassium 25 mg PO DAILY 09/25/19 Torsemide 20 mg PO DAILY 09/25/19 Umeclidinium Brm/Vilanterol Tr [Anoro Ellipta 62.5-25 Mcg INH] 1 each IH DAILY 09/25/19 Review of Systems - Review of Systems Constitutional: reports: Weakness Eyes: reports: No Symptoms HENT: reports: No Symptoms Neck: reports: No Symptoms Cardiovascular: reports: No Symptoms Respiratory: reports: No Symptoms Gastrointestinal: reports: No Symptoms Genitourinary: reports: No Symptoms Breasts: reports: No Symptoms Reported Musculoskeletal: reports: No Symptoms Integumentary: reports: No Symptoms Neurological: reports: No Symptoms Endocrine: reports: No Symptoms Hematology/Lymphatic: reports: No Symptoms Psychiatric: reports: No Symptoms Physical Exam Vital Signs: Vital Signs Temperature 99 F 03/04/20 14:00 Pulse Rate 77 03/04/20 14:00 Respiratory Rate 18 03/04/20 14:00 Blood Pressure 149/73 03/04/20 14:00 O2 Sat by Pulse Oximetry (%) 97 03/04/20 10:00 Constitutional: Yes: Well Nourished, No Distress, Calm Eyes: Yes: Conjunctiva Clear, EOM Intact HENT: Yes: Atraumatic, Normocephalic Neck: Yes: Supple Cardiovascular: Yes: Regular Rate and Rhythm Respiratory: Yes: CTA Bilaterally Gastrointestinal: Yes: Normal Bowel Sounds, Soft, Abdomen, Obese Renal/: Yes: WNL Extremities: Yes: WNL Edema: LLE: Trace, RLE: Trace Peripheral Pulses WNL: Yes Integumentary: Yes: WNL Neurological: Yes: Alert, Oriented Labs: CBC, BMP 03/04/20 08:27 03/04/20 08:27 Laboratory Tests 03/03/20 03/03/2020 21:00 21:00 21:00 WBC 7.8 RBC 3.54 L Hgb 9.9 L Hct 30.0 L MCV 84.6 MCH 27.8 MCHC 32.9 RDW 16.3 H Plt Count 187 MPV 7.9 Absolute Neuts (auto) 6.1 Neutrophils % 78.3 Lymphocytes % 11.5 Monocytes % 9.5 Eosinophils % 0.3 D Basophils % 0.4 Nucleated RBC % 0 PT with INR 14.20 H INR 1.20 H PTT (Actin FS) 29.3 Sodium Potassium Chloride Carbon Dioxide Anion Gap BUN Creatinine Est GFR (CKD-EPI)AfAm Est GFR (CKD-EPI)NonAf Random Glucose Lactic Acid Calcium Total Bilirubin AST ALT Alkaline Phosphatase Troponin I < 0.02 Total Protein Albumin Urine Color Urine Appearance Urine pH Ur Specific [place] Urine Protein Urine Glucose (UA) Urine Ketones Urine Blood Urine Nitrite Urine Bilirubin Urine Urobilinogen Ur Leukocyte Esterase Urine WBC (Auto) Urine RBC (Auto) Urine Casts (Auto) U Epithel Cells (Auto) Urine Bacteria (Auto) 03/03/20 03/03/20 03/03/20 21:00 21:00 21:00 WBC RBC Hgb Hct MCV MCH MCHC RDW Plt Count MPV Absolute Neuts (auto) Neutrophils % Lymphocytes % Monocytes % Eosinophils % Basophils % Nucleated RBC % PT with INR INR PTT (Actin FS) Sodium 139 Potassium 4.0 Chloride 106 Carbon Dioxide 25 Anion Gap 8 BUN 30.0 H Creatinine 2.0 H Est GFR (CKD-EPI)AfAm 36.75 Est GFR (CKD-EPI)NonAf 31.71 Random Glucose 158 H Lactic Acid 1.6 Calcium 8.5 Total Bilirubin 0.4 AST 12 L ALT 20 Alkaline Phosphatase 64 Troponin I Total Protein 6.6 Albumin 3.1 L Urine Color Yellow Urine Appearance Turbid Urine pH 5.0 Ur Specific [place] 1.015 Urine Protein 2+ H Urine Glucose (UA) Negative Urine Ketones Negative Urine Blood 3+ H Urine Nitrite Positive H Urine Bilirubin Negative Urine Urobilinogen 0.2 Ur Leukocyte Esterase 3+ H Urine WBC (Auto) 3343 Urine RBC (Auto) 1684 Urine Casts (Auto) 1 U Epithel Cells (Auto) 6 Urine Bacteria (Auto) 8565 03/04/20 03/04/20 03/04/20 02:50 08:27 08:27 WBC 7.5 RBC 3.72 L Hgb 10.3 L Hct 31.5 L MCV 84.7 MCH 27.6 MCHC 32.6 RDW 16.1 H Plt Count 173 MPV 7.6 Absolute Neuts (auto) Neutrophils % Lymphocytes % Monocytes % Eosinophils % Basophils % Nucleated RBC % PT with INR INR PTT (Actin FS) Sodium 139 Potassium 3.2 L Chloride 104 Carbon Dioxide 30 Anion Gap 4 L BUN 25.4 H Creatinine 1.5 H Est GFR (CKD-EPI)AfAm 52.03 Est GFR (CKD-EPI)NonAf 44.89 Random Glucose 129 H Lactic Acid Cancelled Calcium 8.2 L Total Bilirubin AST ALT Alkaline Phosphatase Troponin I Total Protein Albumin Urine Color Urine Appearance Urine pH Ur Specific [place] Urine Protein Urine Glucose (UA) Urine Ketones Urine Blood Urine Nitrite Urine Bilirubin Urine Urobilinogen Ur Leukocyte Esterase Urine WBC (Auto) Urine RBC (Auto) Urine Casts (Auto) U Epithel Cells (Auto) Urine Bacteria (Auto) Imaging - Results Chest X-ray: Report Reviewed Problem List - Problems (1) BILL (acute kidney injury) Code(s): N17.9 - ACUTE KIDNEY FAILURE, UNSPECIFIED (2) S/P TURP Code(s): Z90.79 - ACQUIRED ABSENCE OF OTHER GENITAL ORGAN(S) (3) Sepsis Code(s): A41.9 - SEPSIS, UNSPECIFIED ORGANISM Qualifiers: Sepsis type: sepsis due to unspecified organism Sepsis acute organ dysfunction status: unspecified Qualified Code(s): A41.9 - Sepsis, unspecified organism (4) UTI (urinary tract infection) Code(s): N39.0 - URINARY TRACT INFECTION, SITE NOT SPECIFIED Qualifiers: Urinary tract infection type: acute cystitis Hematuria presence: with hematuria Qualified Code(s): N30.01 - Acute cystitis with hematuria (5) BPH (benign prostatic hyperplasia) Code(s): N40.0 - BENIGN PROSTATIC HYPERPLASIA WITHOUT LOWER URINRY TRACT SYMP (6) HLD (hyperlipidemia) Code(s): E78.5 - HYPERLIPIDEMIA, UNSPECIFIED Qualifiers: Hyperlipidemia type: pure hypercholesterolemia Qualified Code(s): E78.00 - Pure hypercholesterolemia, unspecified; E78.0 - Pure hypercholesterolemia (7) Hypertensive heart disease Code(s): I11.9 - HYPERTENSIVE HEART DISEASE WITHOUT HEART FAILURE Qualifiers: Heart failure presence: without heart failure Qualified Code(s): I11.9 - Hypertensive heart disease without heart failure (8) Obesity (BMI 30.0-34.9) Code(s): E66.9 - OBESITY, UNSPECIFIED (9) Sleep apnea Code(s): G47.30 - SLEEP APNEA, UNSPECIFIED Qualifiers: Sleep apnea type: obstructive Qualified Code(s): G47.33 - Obstructive sleep apnea (adult) (pediatric) Assessment/Plan Sepsis Complicated UTI s/p TURP BILL BPH CAD COPD Hx of COVID-19 -- continue Cefepime/Vancomycin empirically for now, dose adjust for renal function -- renal function improving, continue monitor -- follow up blood/urine culture results -- monitor temps/vitals -- Urology following Pt currently stable Will follow Thank you
[2020-03-04] MEDS: CEFEPIME 1 GM in DEXTROSE 5%-WATER 100 ML IVPB SCH (20:00)
[2020-03-04] MEDS: ATORVASTATIN CA 80 MG TABLET (FP) PO SCH (21:30)
[2020-03-05] MEDS ORDERED: DEXTROSE 5%-WATER 100 ML IVPB ONE ×3 (01:24→14:29)
[2020-03-05] MEDS ORDERED: CEFEPIME HCL 1 GM VIAL (RESTRICTED TO ID) ONE ×4 (01:24→14:33)
[2020-03-05] MEDS: CEFEPIME 1 GM in DEXTROSE 5%-WATER 100 ML IVPB SCH ×3 (02:50→16:59)
[2020-03-05] MEDS ORDERED: CARVEDILOL 12.5 MG TABLET (FP) PO ONE ×2 (07:25→10:45)
[2020-03-05 09:06] LABS: POTASSIUM 3.3 mmol/L (3.5-5.1)
[2020-03-05 09:36] LABS: ALBUMIN 2.9 g/dl (3.4-5.0); BILIRUBIN,TOTAL 0.8 mg/dL (0.2-1); BLOOD UREA NITROGEN 16.8 mg/dL (7-18); CALCIUM 8.1 mg/dL (8.5-10.1); CREATININE 1.1 mg/dL (0.55-1.3); MAGNESIUM 2.1 mg/dL (1.8-2.4); TOT PROT 6.3 g/dl (6.4-8.2)
[2020-03-05] MEDS ORDERED: LOSARTAN POTASSIUM 25 MG TABLET PO ONE (09:56)
--- NOTE | 2020-03-05 09:56 | PN ---
Progress Note (short form) - Note Progress Note: his is a 74 year old male with a past medical history of hypertension, hyperlipidemia, coronary artery disease s/p stent in 2018 at [facility], COPD, hx of PE, Type 2 DM, pulmonary fibrosis and BPH who had TURP by Dr. Jj 3 days ago here at [facility]. He has been taking Cipro for the past 7 days. He presents for evaluation of fever of 102, chills, myalgias and generalized weakness. He reports he took tylenol around 7pm this evening for fever. He denies cough, chest pain, shortness of breath, near or true syncope, palpitations, orthopnea, PND or LE edema. Found to have sepsis source and BILL. Last visit 02/16/2020 for pre-procedure CV evaluation. BP elevated, been on 12.5 mg carvedilol and off losartan Vital Signs Temperature 98.4 F 03/05/20 07:13 Pulse Rate 68 03/05/20 07:45 Respiratory Rate 18 03/05/20 07:45 Blood Pressure 198/76 H 03/05/20 07:45 O2 Sat by Pulse Oximetry (%) 95 03/05/20 08:39 Respiratory: Yes: Regular, Diminished, On Nasal O2 Gastrointestinal: Yes: Soft, Hypoactive Bowel Sounds Cardiovascular: Yes: Regular Rate and Rhythm JVD: No Carotid Bruit: No Heart Sounds: Yes: S1, S2 Murmur: Yes: Systolic Murmur Edema: No CBC, BMP 03/04/20 08:27 03/05/20 07:15 Troponin, BNP 03/03/20 21:00 Troponin I < 0.02 Active Medications Acetaminophen (Tylenol -) 650 mg PO Q6H PRN PRN Reason: FEVER Albuterol Sulfate (Ventolin Hfa Inhaler -) 2 puff IH Q6H PRN PRN Reason: SHORTNESS OF BREATH Amlodipine Besylate (Norvasc -) 10 mg PO DAILY [facility] Last Admin: 03/04/20 10:51 Dose: 10 mg Documented by: Aspirin (Asa -) 81 mg PO DAILY [facility] Last Admin: 03/04/20 10:51 Dose: 81 mg Documented by: Atorvastatin Calcium (Lipitor -) 80 mg PO HS [facility] Last Admin: 03/04/20 21:30 Dose: 80 mg Documented by: Carvedilol (Coreg -) 25 mg PO BID [facility] Last Admin: 03/04/20 21:30 Dose: 25 mg Documented by: Clopidogrel Bisulfate (Plavix -) 75 mg PO DAILY [facility] Last Admin: 03/04/20 10:51 Dose: 75 mg Documented by: Enoxaparin Sodium (Lovenox -) 30 mg SQ DAILY [facility] Last Admin: 03/04/20 10:51 Dose: 30 mg Documented by: Gabapentin (Neurontin -) 400 mg PO Q12H PRN PRN Reason: PAIN Cefepime HCl 1 gm/ Dextrose 100 mls @ 100 mls/hr IVPB Q8H-IV [facility]; Protocol Last Admin: 03/05/20 02:50 Dose: 100 mls/hr Documented by: Sodium Chloride (Normal Saline -) 1,000 mls @ 35 mls/hr IV ASDIR [facility] Last Admin: 03/04/20 14:43 Dose: Not Given Documented by: Vancomycin HCl (Vancomycin (Pre-Docked)) 1,000 mg in 250 mls @ 166.667 mls/hr IVPB DAILY [facility] Potassium Chloride (K-Dur -) 20 meq PO DAILY [facility] Last Admin: 03/04/20 10:51 Dose: 20 meq Documented by: Tamsulosin HCl (Flomax -) 0.8 mg PO DAILY [facility] Last Admin: 03/04/20 10:51 Dose: 0.8 mg Documented by: Torsemide (Demadex -) 20 mg PO DAILY [facility] Last Admin: 03/04/20 14:17 Dose: Not Given Documented by: Umeclidinium/Vilanterol (Anoro Ellipta 62.5-25 Mcg Inh) 1 puff IH DAILY [facility] Last Admin: 03/04/20 10:54 Dose: 1 puff Documented by: NSR @ 72 RBBB Prior Cardiac Procedures: Valve Surgery Imaging - Results Chest X-ray: Report Reviewed (No infiltrates or failure) Problem List - Problems (1) [id number] kidney injury Code(s): N17.9 - ACUTE KIDNEY FAILURE, UNSPECIFIED; N18.9 - CHRONIC KIDNEY DISEASE, UNSPECIFIED Qualifiers: Chronic kidney disease stage: stage 2 (mild) (2) BILL (acute kidney injury) Code(s): N17.9 - ACUTE KIDNEY FAILURE, UNSPECIFIED (3) S/P TURP Code(s): Z90.79 - ACQUIRED ABSENCE OF OTHER GENITAL ORGAN(S) (4) Sepsis Code(s): A41.9 - SEPSIS, UNSPECIFIED ORGANISM Qualifiers: Sepsis type: sepsis due to unspecified organism Sepsis acute organ dysfu nction status: unspecified Qualified Code(s): A41.9 - Sepsis, unspecified organism (5) UTI (urinary tract infection) Code(s): N39.0 - URINARY TRACT INFECTION, SITE NOT SPECIFIED Qualifiers: Urinary tract infection type: acute cystitis Hematuria presence: with hematuria Qualified Code(s): N30.01 - Acute cystitis with hematuria (6) Coronary artery disease Code(s): I25.10 - ATHSCL HEART DISEASE OF [place] CORONARY ARTERY W/O ANG PCTRS Qualifiers: Coronary Disease-Associated Artery/Lesion type: [place] artery [place] vs. transplanted heart: [place] heart Associated angina: without angina Qualified Code(s): I25.10 - Atherosclerotic heart disease of [place] coronary artery without angina pectoris (7) HLD (hyperlipidemia) Code(s): E78.5 - HYPERLIPIDEMIA, UNSPECIFIED Qualifiers: Hyperlipidemia type: pure hypercholesterolemia Qualified Code(s): E78.00 - Pure hypercholesterolemia, unspecified; E78.0 - Pure hypercholesterolemia (8) Hypertensive heart disease Code(s): I11.9 - HYPERTENSIVE HEART DISEASE WITHOUT HEART FAILURE Qualifiers: Heart failure presence: without heart failure Qualified Code(s): I11.9 - Hypertensive heart disease without heart failure (9) Presence of drug-eluting stent in right coronary artery Code(s): Z95.5 - PRESENCE OF CORONARY ANGIOPLASTY IMPLANT AND GRAFT (10) Sleep apnea Code(s): G47.30 - SLEEP APNEA, UNSPECIFIED Qualifiers: Sleep apnea type: obstructive Qualified Code(s): G47.33 - Obstructive sleep apnea (adult) (pediatric) Assessment/Plan 05/20/2018 Nuc stress: Mod inferior ischemia with small infarct, LVEF 52% 05/20/2018 Echo: Normal LV size with mod cLVH, LVEF 55-60%, mild LAE, mod MR, tr TR 05/21/2018 LHC performed at [facility] for [place]/NSTEMI and moderate inferior ischemia. 2 vessel CAD 90-95% ostial LCx-OM (medium sized vessel) left alone, 90-95% prox RCA which was treated with implant Resolute Bishop 4.0x18 mm FISH post- dilated with NC 4.5x15 balloon @ 14 SARAHY, normal LV fxn LVEF 65-70% with elevated LVEDP 27 mmHg, no aortic stenosis. Mynx deployed right SHOP FIRER/FIREMAN access site, no complications. Recommend optimal medical therapy for secondary prevention of c ardiovascular disease, consider PCI of LCx-OM if remains symptomatic despite meds, patient is candidate for cardiac rehab. 1. Sepsis source post TURP 2. COPD, pulm fibrosis 3. CAD s/p FISH RCA 4. Type 2 DM 5. BILL (prerenal) with proteinuria 6. OSAS on cpap 7. Hypertensive heart disease 8. Hyperlipidemia 9/ H/o PE P: 1. Resume losartan, judicious hydration pending renal fxn stabilization; in crease carvedilol to 25 mg q 12 hrs 2. Continue ASA 81 qd, Plavix 75 qd, Norvac 5 bid, Lipitor 80 qd, 3. Cpap nightly 4.infectious management per primary team
[2020-03-05] MEDS ORDERED: VANCOMYCIN 1 GRAM (PRE-DOCKED) 1,000 MG/250 ML BAG IVPB SCH (10:00)
--- NOTE | 2020-03-05 10:04 | PN ---
Progress Note, Physician History of Present Illness: Pt is Better Ptrerenal azotemia Resolved Sepsis seconadary to TURP On IV antibiotics/ ID FU noted COPD better No Fever - Current Medication List Current Medications: Active Medications Acetaminophen (Tylenol -) 650 mg PO Q6H PRN PRN Reason: FEVER Albuterol Sulfate (Ventolin Hfa Inhaler -) 2 puff IH Q6H PRN PRN Reason: SHORTNESS OF BREATH Amlodipine Besylate (Norvasc -) 10 mg PO DAILY [facility] Last Admin: 03/04/20 10:51 Dose: 10 mg Documented by: Aspirin (Asa -) 81 mg PO DAILY [facility] Last Admin: 03/04/20 10:51 Dose: 81 mg Documented by: Atorvastatin Calcium (Lipitor -) 80 mg PO HS [facility] Last Admin: 03/04/20 21:30 Dose: 80 mg Documented by: Carvedilol (Coreg -) 25 mg PO BID [facility] Last Admin: 03/04/20 21:30 Dose: 25 mg Documented by: Clopidogrel Bisulfate (Plavix -) 75 mg PO DAILY [facility] Last Admin: 03/04/20 10:51 Dose: 75 mg Documented by: Enoxaparin Sodium (Lovenox -) 30 mg SQ DAILY [facility] Last Admin: 03/04/20 10:51 Dose: 30 mg Documented by: Gabapentin (Neurontin -) 400 mg PO Q12H PRN PRN Reason: PAIN Cefepime HCl 1 gm/ Dextrose 100 mls @ 100 mls/hr IVPB Q8H-IV [facility]; Protocol Last Admin: 03/05/20 02:50 Dose: 100 mls/hr Documented by: Sodium Chloride (Normal Saline -) 1,000 mls @ 35 mls/hr IV ASDIR [facility] Last Admin: 03/04/20 14:43 Dose: Not Given Documented by: Vancomycin HCl (Vancomycin (Pre-Docked)) 1,000 mg in 250 mls @ 166.667 mls/hr IVPB DAILY [facility] Losartan Potassium (Cozaar -) 25 mg PO ONCE ONE Stop: 03/05/20 09:57 Potassium Chloride (K-Dur -) 20 meq PO DAILY [facility] Last Admin: 03/04/20 10:51 Dose: 20 meq Documented by: Tamsulosin HCl (Flomax -) 0.8 mg PO DAILY [facility] Last Admin: 03/04/20 10:51 Dose: 0.8 mg Documented by: Torsemide (Demadex -) 20 mg PO DAILY [facility] Last Admin: 03/04/20 14:17 Dose: Not Given Documented by: Umeclidinium/Vilanterol (Anoro Ellipta 62.5-25 Mcg Inh) 1 puff IH DAILY [facility] Last Admin: 03/04/20 10:54 Dose: 1 puff Documented by: - Objective Vital Signs: Vital Signs Temperature 98.4 F 03/05/20 07:13 Pulse Rate 68 03/05/20 07:45 Respiratory Rate 18 03/05/20 07:45 Blood Pressure 198/76 H 03/05/20 07:45 O2 Sat by Pulse Oximetry (%) 95 03/05/20 08:39 Constitutional: Yes: Anxious Eyes: Yes: Conjunctiva Clear, EOM Intact HENT: Yes: Atraumatic, Normocephalic Neck: Yes: Supple, Trachea Midline Cardiovascular: Yes: Regular Rate and Rhythm, S1, S2 Respiratory: Yes: Regular, CTA Bilaterally, Diminished Gastrointestinal: Yes: Normal Bowel Sounds, Soft Musculoskeletal: Yes: Joint Stiffness Edema: Yes Edema: LLE: 1+, RLE: 1+ Peripheral Pulses WNL: No Neurological: Yes: Alert, Oriented, Cran Nerves II-XII Intact Labs: CBC, BMP 03/04/20 08:27 03/05/20 07:15 INR, PTT INR 1.20 (0.83-1.09) H 03/03/20 21:00 Problem List - Problems (1) S/P TURP Code(s): Z90.79 - ACQUIRED ABSENCE OF OTHER GENITAL ORGAN(S) (2) Sepsis Code(s): A41.9 - SEPSIS, UNSPECIFIED ORGANISM Qualifiers: Sepsis type: sepsis due to unspecified organism Sepsis acute organ dysfunction status: unspecified Qualified Code(s): A41.9 - Sepsis, unspecified organism (3) UTI (urinary tract infection) Code(s): N39.0 - URINARY TRACT INFECTION, SITE NOT SPECIFIED Qualifiers: Urinary tract infection type: acute cystitis Hematuria presence: with hematuria Qualified Code(s): N30.01 - Acute cystitis with hematuria (4) Acute AR, inferior wall, initial episode of care Code(s): I21.19 - STEMI INVOLVING OTH CORONARY ARTERY OF INFERIOR WALL (5) Acute exacerbation of chronic obstructive pulmonary disease (COPD) Code(s): J44.1 - CHRONIC OBSTRUCTIVE PULMONARY DISEASE W (ACUTE) EXACERBATION (6) COPD (chronic obstructive pulmonary disease) with acute bronchitis Code(s): J44.0 - CHR OBSTRUCTIVE PULMON DISEASE WITH (ACUTE) LOWER RESP INFCT; J20.9 - ACUTE BRONCHITIS, UNSPECIFIED (7) Calcaneal spur, right foot Code(s): M77.31 - CALCANEAL SPUR, RIGHT FOOT (8) Coronary artery disease Code(s): I25.10 - ATHSCL HEART DISEASE OF [place] CORONARY ARTERY W/O ANG PCTRS Qualifiers: Coronary Disease-Associated Artery/Lesion type: [place] artery [place] vs. transplanted heart: [place] heart Associated angina: without angina Qualified Code(s): I25.10 - Atherosclerotic heart disease of [place] coronary artery without angina pectoris (9) HLD (hyperlipidemia) Code(s): E78.5 - HYPERLIPIDEMIA, UNSPECIFIED Qualifiers: Hyperlipidemia type: pure hypercholesterolemia Qualified Code(s): E78.00 - Pure hypercholesterolemia, unspecified; E78.0 - Pure hypercholesterolemia (10) Hypercholesterolemia Code(s): E78.00 - PURE HYPERCHOLESTEROLEMIA, UNSPECIFIED (11) Hypokalemia Code(s): E87.6 - HYPOKALEMIA (12) Hypoxia Code(s): R09.02 - HYPOXEMIA (13) Lumbar radiculopathy, chronic Code(s): M54.16 - RADICULOPATHY, LUMBAR REGION (14) NSTEMI (non-ST elevated myocardial infarction) Code(s): I21.4 - NON-ST ELEVATION (NSTEMI) MYOCARDIAL INFARCTION (15) Obesity (BMI 30.0-34.9) Code(s): E66.9 - OBESITY, UNSPECIFIED (16) Presence of drug-eluting stent in right coronary artery Code(s): Z95.5 - PRESENCE OF CORONARY ANGIOPLASTY IMPLANT AND GRAFT (17) Sciatica Code(s): M54.30 - SCIATICA, UNSPECIFIED SIDE Qualifiers: Laterality: right Qualified Code(s): M54.31 - Sciatica, right side (18) Shingles (herpes zoster) polyneuropathy Code(s): B02.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 (19) Sleep apnea Code(s): G47.30 - SLEEP APNEA, UNSPECIFIED Qualifiers: Sleep apnea type: obstructive Qualified Code(s): G47.33 - Obstructive sleep apnea (adult) (pediatric) (20) Syncope Code(s): R55 - SYNCOPE AND COLLAPSE Assessment/Plan (1) S/P TURP Code(s): Z90.79 - ACQUIRED ABSENCE OF OTHER GENITAL ORGAN(S) (2) Sepsis Code(s): A41.9 - SEPSIS, UNSPECIFIED ORGANISM Qualifiers: Sepsis type: sepsis due to unspecified organism Sepsis acute organ dysfunction status: unspecified Qualified Code(s): A41.9 - Sepsis, unspecified organism (3) UTI (urinary tract infection) Code(s): N39.0 - URINARY TRACT INFECTION, SITE NOT SPECIFIED Qualifiers: Urinary tract infection type: acute cystitis Hematuria presence: with hematuria Qualified Code(s): N30.01 - Acute cystitis with hematuria (4) H/O Acute AR, inferior wall AR S/P Stent Code(s): I21.19 - STEMI INVOLVING OTH CORONARY ARTERY OF INFERIOR WALL (5) Acute exacerbation of chronic obstructive pulmonary disease (COPD) Code(s): J44.1 - CHRONIC OBSTRUCTIVE PULMONARY DISEASE W (ACUTE) EXACERBATION (6) COPD (chronic obstructive pulmonary disease) with acute bronchitis Code(s): J44.0 - CHR OBSTRUCTIVE PULMON DISEASE WITH (ACUTE) LOWER RESP INFCT; J20.9 - ACUTE BRONCHITIS, UNSPECIFIED (7) Calcaneal spur, right foot Code(s): M77.31 - CALCANEAL SPUR, RIGHT FOOT (8) Coronary artery disease Code(s): I25.10 - ATHSCL HEART DISEASE OF [place] CORONARY ARTERY W/O ANG PCTRS Qualifiers: Coronary Disease-Associated Artery/Lesion type: [place] artery [place] vs. transplanted heart: [place] heart Associated angina: without angina Qualified Code(s): I25.10 - Atherosclerotic heart disease of [place] coronary artery without angina pectoris (9) HLD (hyperlipidemia) Code(s): E78.5 - HYPERLIPIDEMIA, UNSPECIFIED Qualifiers: Hyperlipidemia type: pure hypercholesterolemia Qualified Code(s): E78.00 - Pure hypercholesterolemia, unspecified; E78.0 - Pure hypercholesterolemia (10) Hypercholesterolemia Code(s): E78.00 - PURE HYPERCHOLESTEROLEMIA, UNSPECIFIED (11) Hypokalemia Code(s): E87.6 - HYPOKALEMIA (12) Hypoxia Code(s): R09.02 - HYPOXEMIA (13) Lumbar radiculopathy, chronic Code(s): M54.16 - RADICULOPATHY, LUMBAR REGION (14) NSTEMI (non-ST elevated myocardial infarction) Code(s): I21.4 - NON-ST ELEVATION (NSTEMI) MYOCARDIAL INFARCTION (15) Obesity (BMI 30.0-34.9) Code(s): E66.9 - OBESITY, UNSPECIFIED (16) Presence of drug-eluting stent in right coronary artery Code(s): Z95.5 - PRESENCE OF CORONARY ANGIOPLASTY IMPLANT AND GRAFT (17) Sciatica Code(s): M54.30 - SCIATICA, UNSPECIFIED SIDE Qualifiers: Laterality: right Qualified Code(s): M54.31 - Sciatica, right side (18) Shingles (herpes zoster) polyneuropathy Code(s): B02.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 (19) Sleep apnea : at Home BIPAP Pt refused here Code(s): G47.30 - SLEEP APNEA, UNSPECIFIED Qualifiers: Sleep apnea type: obstructive Qualified Code(s): G47.33 - Obstructive sleep apnea (adult) (pediatric) (20) Syncope Code(s): R55 - SYNCOPE AND COLLAPSE
[2020-03-05] MEDS: TAMSULOSIN HCL 0.4 MG CAP PO SCH (11:07)
[2020-03-05] MEDS: CLOPIDOGREL BISULFATE 75 MG TABLET (FP) PO SCH (11:07)
[2020-03-05] MEDS: ENOXAPARIN NA (PORCINE) 30 MG/0.3 ML DISP.SYRIN SQ SCH (11:07)
[2020-03-05] MEDS: ASPIRIN 81 MG CHEWABLE TABLETS PO SCH (11:08)
[2020-03-05] MEDS: CARVEDILOL 25 MG TABLET (FP) PO SCH ×2 (11:09→21:49)
[2020-03-05] MEDS: amLODIPine BESYLATE 10 MG TABLET (FP) PO SCH (11:10)
[2020-03-05] MEDS: POTASSIUM CHLORIDE TABS 20 MEQ TABLET.ER (FP) PO SCH (11:10)
[2020-03-05] MEDS ORDERED: POTASSIUM CHLORIDE ORAL LIQUID 20 MEQ/15 ML PO ONE (12:26)
--- NOTE | 2020-03-05 12:26 | PN ---
Progress Note, Physician History of Present Illness: Pt seen and examined at bedside. He is awake and alert. He denies shortness of breath. He says that he feels better. - Current Medication List Current Medications: Active Medications Acetaminophen (Tylenol -) 650 mg PO Q6H PRN PRN Reason: FEVER Albuterol Sulfate (Ventolin Hfa Inhaler -) 2 puff IH Q6H PRN PRN Reason: SHORTNESS OF BREATH Amlodipine Besylate (Norvasc -) 10 mg PO DAILY [facility] Last Admin: 03/05/20 11:10 Dose: 10 mg Documented by: Aspirin (Asa -) 81 mg PO DAILY [facility] Last Admin: 03/05/20 11:08 Dose: 81 mg Documented by: Atorvastatin Calcium (Lipitor -) 80 mg PO HS [facility] Last Admin: 03/04/20 21:30 Dose: 80 mg Documented by: Carvedilol (Coreg -) 25 mg PO BID [facility] Last Admin: 03/05/20 11:09 Dose: Not Given Documented by: Clopidogrel Bisulfate (Plavix -) 75 mg PO DAILY [facility] Last Admin: 03/05/20 11:07 Dose: 75 mg Documented by: Enoxaparin Sodium (Lovenox -) 30 mg SQ DAILY [facility] Last Admin: 03/05/20 11:07 Dose: 30 mg Documented by: Gabapentin (Neurontin -) 400 mg PO Q12H PRN PRN Reason: PAIN Cefepime HCl 1 gm/ Dextrose 100 mls @ 100 mls/hr IVPB Q8H-IV [facility]; Protocol Last Admin: 03/05/20 11:10 Dose: 100 mls/hr Documented by: Sodium Chloride (Normal Saline -) 1,000 mls @ 35 mls/hr IV ASDIR [facility] Last Admin: 03/04/20 14:43 Dose: Not Given Documented by: Vancomycin HCl (Vancomycin (Pre-Docked)) 1,000 mg in 250 mls @ 166.667 mls/hr IVPB DAILY [facility] Potassium Chloride (K-Dur -) 20 meq PO DAILY [facility] Last Admin: 03/05/20 11:10 Dose: 20 meq Documented by: Tamsulosin HCl (Flomax -) 0.8 mg PO DAILY [facility] Last Admin: 03/05/20 11:07 Dose: 0.8 mg Documented by: Torsemide (Demadex -) 20 mg PO DAILY [facility] Last Admin: 03/04/20 14:17 Dose: Not Given Documented by: Umeclidinium/Vilanterol (Anoro Ellipta 62.5-25 Mcg Inh) 1 puff IH DAILY [facility] Last Admin: 03/04/20 10:54 Dose: 1 puff Documented by: - Objective Vital Signs: Vital Signs Temperature 98.4 F 03/05/20 07:13 Pulse Rate 72 03/05/20 11:15 Respiratory Rate 18 03/05/20 11:15 Blood Pressure 152/68 03/05/20 11:15 O2 Sat by Pulse Oximetry (%) 96 03/05/20 11:15 Constitutional: Yes: Calm Eyes: Yes: Conjunctiva Clear HENT: Yes: Atraumatic Neck: Yes: Supple Cardiovascular: Yes: S1, S2 Respiratory: Yes: CTA Bilaterally Gastrointestinal: Yes: Soft Genitourinary: Yes: WNL Musculoskeletal: Yes: WNL Edema: No Neurological: Yes: Oriented Psychiatric: Yes: Oriented Labs: CBC, BMP 03/04/20 08:27 03/05/20 07:15 INR, PTT INR 1.20 (0.83-1.09) H 03/03/20 21:00 Problem List - Problems (1) BILL (acute kidney injury) Code(s): N17.9 - ACUTE KIDNEY FAILURE, UNSPECIFIED (2) S/P TURP Code(s): Z90.79 - ACQUIRED ABSENCE OF OTHER GENITAL ORGAN(S) (3) Sepsis Code(s): A41.9 - SEPSIS, UNSPECIFIED ORGANISM Qualifiers: Sepsis type: sepsis due to unspecified organism Sepsis acute organ dysfunction status: unspecified Qualified Code(s): A41.9 - Sepsis, unspecified organism (4) UTI (urinary tract infection) Code(s): N39.0 - URINARY TRACT INFECTION, SITE NOT SPECIFIED Qualifiers: Urinary tract infection type: acute cystitis Hematuria presence: with hematuria Qualified Code(s): N30.01 - Acute cystitis with hematuria Assessment/Plan Current Medications Generic Name Dose Route Start Last Admin Trade Name Freq PRN Reason Stop Dose Admin Acetaminophen 650 mg 03/03/20 23:37 Tylenol - PO Q6H PRN FEVER Albuterol Sulfate 2 puff 03/03/20 23:30 Ventolin Hfa Inhaler - IH Q6H PRN SHORTNESS OF BREATH Amlodipine Besylate 10 mg 03/04/20 10:00 03/05/20 11:10 Norvasc - PO 10 mg DAILY [facility] Administration Aspirin 81 mg 03/04/20 10:00 03/05/20 11:08 Asa - PO 81 mg DAILY [facility] Administration Atorvastatin Calcium 80 mg 03/04/20 22:00 03/04/20 21:30 Lipitor - PO 80 mg HS [facility] Administration Carvedilol 25 mg 03/04/20 10:00 03/05/20 11:09 Coreg - PO Not Given BID [facility] Clopidogrel Bisulfate 75 mg 03/04/20 10:00 03/05/20 11:07 Plavix - PO 75 mg DAILY [facility] Administration Enoxaparin Sodium 30 mg 03/04/20 10:00 03/05/20 11:07 Lovenox - SQ 30 mg DAILY [facility] Administration Gabapentin 400 mg 03/03/20 23:30 Neurontin - PO Q12H PRN PAIN Cefepime HCl 1 gm/ Dextrose 100 mls @ 100 mls/hr 03/04/20 20:00 03/05/20 11:10 IVPB 100 mls/hr Q8H-IV [facility] Administration Protocol Sodium Chloride 1,000 mls @ 35 mls/hr 03/04/20 13:55 03/04/20 14:43 Normal Saline - IV Not Given ASDIR [facility] Vancomycin HCl 1,000 mg in 250 mls @ 166.667 mls/hr 03/05/20 10:00 Vancomycin (Pre-Docked) IVPB DAILY [facility] Potassium Chloride 20 meq 03/04/20 10:00 03/05/20 11:10 K-Dur - PO 20 meq DAILY [facility] Administration Tamsulosin HCl 0.8 mg 03/04/20 10:00 03/05/20 11:07 Flomax - PO 0.8 mg DAILY [facility] Administration Torsemide 20 mg 03/04/20 10:00 03/04/20 14:17 Demadex - PO Not Given DAILY [facility] Umeclidinium/Vilanterol 1 puff 03/04/20 10:00 03/04/20 10:54 Anoro Ellipta 62.5-25 Mcg Inh IH 1 puff DAILY [facility] Administration Impression 1. BILL 2. sepsis 3. hx PE 4. pulm fibrosis 5. s/p TURP 6. copd 7. cad Plan - can d/c fluids - replace potassium - can resume torsemide tomorrow - monitor lytes - abx per ID - outpt follow up - cont abx - renal function improved with fluids - follow renal ultrasound results
[2020-03-05 13:05] VITALS: BMI 29.5
[2020-03-05] MEDS: UMECLIDINIUM/VILANTEROL (ANORO) 62.5/25 MCG INHALER IH SCH (13:26)
--- NOTE | 2020-03-05 20:18 | PN ---
Progress Note, Physician History of Present Illness: Pt feeling better. Fevers resolving. - Current Medication List Current Medications: Active Medications Acetaminophen (Tylenol -) 650 mg PO Q6H PRN PRN Reason: FEVER Albuterol Sulfate (Ventolin Hfa Inhaler -) 2 puff IH Q6H PRN PRN Reason: SHORTNESS OF BREATH Amlodipine Besylate (Norvasc -) 10 mg PO DAILY [facility] Last Admin: 03/05/20 11:10 Dose: 10 mg Documented by: Aspirin (Asa -) 81 mg PO DAILY [facility] Last Admin: 03/05/20 11:08 Dose: 81 mg Documented by: Atorvastatin Calcium (Lipitor -) 80 mg PO HS [facility] Last Admin: 03/04/20 21:30 Dose: 80 mg Documented by: Carvedilol (Coreg -) 25 mg PO BID [facility] Last Admin: 03/05/20 11:09 Dose: Not Given Documented by: Clopidogrel Bisulfate (Plavix -) 75 mg PO DAILY [facility] Last Admin: 03/05/20 11:07 Dose: 75 mg Documented by: Enoxaparin Sodium (Lovenox -) 30 mg SQ DAILY [facility] Last Admin: 03/05/20 11:07 Dose: 30 mg Documented by: Gabapentin (Neurontin -) 400 mg PO Q12H PRN PRN Reason: PAIN Cefepime HCl 1 gm/ Dextrose 100 mls @ 100 mls/hr IVPB Q8H-IV [facility]; Protocol Last Admin: 03/05/20 16:59 Dose: 100 mls/hr Documented by: Losartan Potassium (Cozaar -) 25 mg PO DAILY [facility] Potassium Chloride (K-Dur -) 40 meq PO DAILY [facility] Tamsulosin HCl (Flomax -) 0.8 mg PO DAILY [facility] Last Admin: 03/05/20 11:07 Dose: 0.8 mg Documented by: Torsemide (Demadex -) 20 mg PO DAILY [facility] Last Admin: 03/04/20 14:17 Dose: Not Given Documented by: Umeclidinium/Vilanterol (Anoro Ellipta 62.5-25 Mcg Inh) 1 puff IH DAILY [facility] Last Admin: 03/05/20 13:26 Dose: 1 puff Documented by: - Objective Vital Signs: Vital Signs Temperature 98.1 F 03/05/20 18:00 Pulse Rate 68 03/05/20 18:00 Respiratory Rate 18 03/05/20 18:00 Blood Pressure 164/71 03/05/20 18:00 O2 Sat by Pulse Oximetry (%) 96 03/05/20 18:00 Constitutional: Yes: No Distress, Calm Cardiovascular: Yes: Regular Rate and Rhythm Respiratory: Yes: Regular Gastrointestinal: Yes: Normal Bowel Sounds, Soft Genitourinary: Yes: WNL Extremities: Yes: WNL Integumentary: Yes: WNL Neurological: Yes: Alert, Oriented Labs: CBC, BMP 03/04/20 08:27 03/05/20 07:15 INR, PTT INR 1.20 (0.83-1.09) H 03/03/20 21:00 Laboratory Results - last 24 hr 03/03/20 03/05/20 23:30 07:15 Sodium 137 Potassium 3.3 L Chloride 104 Carbon Dioxide 27 Anion Gap 7 L BUN 16.8 Creatinine 1.1 Est GFR (CKD-EPI)AfAm 75.71 Est GFR (CKD-EPI)NonAf 65.32 Random Glucose 137 H Calcium 8.1 L Magnesium 2.1 Total Bilirubin 0.8 AST 12 L ALT 21 Alkaline Phosphatase 56 Total Protein 6.3 L Albumin 2.9 L COVID-19 (ALEJANDRINA) Not detected Microbiology 03/03/20 21:00 Urine - Urine Clean Catch Urine Culture - Preliminary Lactose Fermenting Neg Bacilli 03/03/20 21:00 Blood - Peripheral Venous Blood Culture - Preliminary NO GROWTH OBTAINED AFTER 24 HOURS, INCUBATION TO CONTINUE FOR 4 DAYS. 03/03/20 21:00 Blood - Peripheral Venous Blood Culture - Preliminary NO GROWTH OBTAINED AFTER 24 HOURS, INCUBATION TO CONTINUE FOR 4 DAYS. Problem List - Problems (1) BILL (acute kidney injury) Code(s): N17.9 - ACUTE KIDNEY FAILURE, UNSPECIFIED (2) S/P TURP Code(s): Z90.79 - ACQUIRED ABSENCE OF OTHER GENITAL ORGAN(S) (3) Sepsis Code(s): A41.9 - SEPSIS, UNSPECIFIED ORGANISM Qualifiers: Sepsis type: sepsis due to unspecified organism Sepsis acute organ dysfunction status: unspecified Qualified Code(s): A41.9 - Sepsis, unspecified organism (4) UTI (urinary tract infection) Code(s): N39.0 - URINARY TRACT INFECTION, SITE NOT SPECIFIED Qualifiers: Urinary tract infection type: acute cystitis Hematuria presence: with hematuria Qualified Code(s): N30.01 - Acute cystitis with hematuria (5) BPH (benign prostatic hyperplasia) Code(s): N40.0 - BENIGN PROSTATIC HYPERPLASIA WITHOUT LOWER URINRY TRACT SYMP (6) HLD (hyperlipidemia) Code(s): E78.5 - HYPERLIPIDEMIA, UNSPECIFIED Qualifiers: Hyperlipidemia type: pure hypercholesterolemia Qualified Code(s): E78.00 - Pure hypercholesterolemia, unspecified; E78.0 - Pure hypercholesterolemia (7) Hypertensive heart disease Code(s): I11.9 - HYPERTENSIVE HEART DISEASE WITHOUT HEART FAILURE Qualifiers: Heart failure presence: without heart failure Qualified Code(s): I11.9 - Hypertensive heart disease without heart failure (8) Obesity (BMI 30.0-34.9) Code(s): E66.9 - OBESITY, UNSPECIFIED (9) Sleep apnea Code(s): G47.30 - SLEEP APNEA, UNSPECIFIED Qualifiers: Sleep apnea type: obstructive Qualified Code(s): G47.33 - Obstructive sleep apnea (adult) (pediatric) Assessment/Plan Sepsis Complicated UTI s/p TURP BILL BPH CAD COPD Hx of COVID-19 -- Improving clinically. Urine Cx - GNR - isolate pending -- continue Cefepime for now, d/c Vancomycin -- renal function improved -- blood cultures neg so far -- continue monitor temps/vitals -- Urology following
[2020-03-05] MEDS: ATORVASTATIN CA 80 MG TABLET (FP) PO SCH (21:49)
[2020-03-06] MEDS ORDERED: DEXTROSE 5%-WATER 100 ML IVPB ONE ×3 (00:56→16:54)
[2020-03-06] MEDS ORDERED: CEFEPIME HCL 1 GM VIAL (RESTRICTED TO ID) ONE ×3 (00:56→16:53)
[2020-03-06] MEDS: CEFEPIME 1 GM in DEXTROSE 5%-WATER 100 ML IVPB SCH ×3 (01:58→17:02)
[2020-03-06 08:55] LABS: BASO % 0.7 % (0-2.0); EOS % 2.4 % (0-4.5); HEMATOCRIT 30.9 % (35.4-49); HEMOGLOBIN 10.2 GM/dL (11.7-16.9); LYMPH % 20.4 % (8-40); MCH 27.7 pg (25.7-33.7); MEAN PLT VOLUME 8.2 fl (7.5-11.1); MONO % 13.4 % (3.8-10.2); NEUT % 63.1 % (42.8-82.8); PLATELET COUNT 191 K/MM3 (134-434); RBC 3.68 M/mm3 (4.00-5.60); RDW 16.2 % (11.9-15.9); WHITE BLOOD COUNT 5.9 K/mm3 (4.0-10.0)
[2020-03-06 09:19] LABS: BILIRUBIN,TOTAL 0.5 mg/dL (0.2-1); BLOOD UREA NITROGEN 15.6 mg/dL (7-18); CALCIUM 8.6 mg/dL (8.5-10.1); POTASSIUM 3.4 mmol/L (3.5-5.1); TOT PROT 6.6 g/dl (6.4-8.2)
[2020-03-06] MEDS: CARVEDILOL 25 MG TABLET (FP) PO SCH ×2 (09:39→21:49)
[2020-03-06] MEDS: CLOPIDOGREL BISULFATE 75 MG TABLET (FP) PO SCH (09:39)
[2020-03-06] MEDS: amLODIPine BESYLATE 10 MG TABLET (FP) PO SCH (09:39)
[2020-03-06] MEDS: LOSARTAN POTASSIUM 25 MG TABLET PO SCH (09:39)
[2020-03-06] MEDS: TAMSULOSIN HCL 0.4 MG CAP PO SCH (09:40)
[2020-03-06] MEDS: POTASSIUM CHLORIDE TABS 20 MEQ TABLET.ER (FP) PO SCH (09:40)
[2020-03-06] MEDS: ASPIRIN 81 MG CHEWABLE TABLETS PO SCH (09:43)
[2020-03-06] MEDS: TORSEMIDE 20 MG TABLET (FP) PO SCH (09:44)
[2020-03-06] MEDS: ENOXAPARIN NA (PORCINE) 30 MG/0.3 ML DISP.SYRIN SQ SCH (09:49)
[2020-03-06] MEDS: UMECLIDINIUM/VILANTEROL (ANORO) 62.5/25 MCG INHALER IH SCH (09:51)
--- NOTE | 2020-03-06 14:25 | PN ---
Progress Note (short form) - Note Progress Note: 1. BILL 2. sepsis 3. hx PE 4. pulm fibrosis 5. s/p TURP 6. copd 7. cad Active Medications Acetaminophen (Tylenol -) 650 mg PO Q6H PRN PRN Reason: FEVER Albuterol Sulfate (Ventolin Hfa Inhaler -) 2 puff IH Q6H PRN PRN Reason: SHORTNESS OF BREATH Amlodipine Besylate (Norvasc -) 10 mg PO DAILY [facility] Last Admin: 03/06/20 09:39 Dose: 10 mg Documented by: Aspirin (Asa -) 81 mg PO DAILY [facility] Last Admin: 03/06/20 09:43 Dose: 81 mg Documented by: Atorvastatin Calcium (Lipitor -) 80 mg PO HS [facility] Last Admin: 03/05/20 21:49 Dose: 80 mg Documented by: Carvedilol (Coreg -) 25 mg PO BID [facility] Last Admin: 03/06/20 09:39 Dose: 25 mg Documented by: Clopidogrel Bisulfate (Plavix -) 75 mg PO DAILY [facility] Last Admin: 03/06/20 09:39 Dose: 75 mg Documented by: Enoxaparin Sodium (Lovenox -) 30 mg SQ DAILY [facility] Last Admin: 03/06/20 09:49 Dose: 30 mg Documented by: Gabapentin (Neurontin -) 400 mg PO Q12H PRN PRN Reason: PAIN Cefepime HCl 1 gm/ Dextrose 100 mls @ 100 mls/hr IVPB Q8H-IV [facility]; Protocol Last Admin: 03/06/20 09:45 Dose: 100 mls/hr Documented by: Losartan Potassium (Cozaar -) 25 mg PO DAILY [facility] Last Admin: 03/06/20 09:39 Dose: 25 mg Documented by: Potassium Chloride (K-Dur -) 40 meq PO DAILY [facility] Last Admin: 03/06/20 09:40 Dose: 40 meq Documented by: Tamsulosin HCl (Flomax -) 0.8 mg PO DAILY [facility] Last Admin: 03/06/20 09:40 Dose: 0.8 mg Documented by: Torsemide (Demadex -) 20 mg PO DAILY [facility] Last Admin: 03/06/20 09:44 Dose: 20 mg Documented by: Umeclidinium/Vilanterol (Anoro Ellipta 62.5-25 Mcg Inh) 1 puff IH DAILY [facility] Last Admin: 03/06/20 09:51 Dose: 1 puff Documented by: Last Vital Signs Temp Pulse Resp BP Pulse Ox 98.3 F 70 18 156/61 98 03/06/20 09:52 03/06/20 09:52 03/06/20 09:52 03/06/20 09:52 03/06/20 09:52 CBC, BMP 03/06/20 08:14 03/06/20 08:14 BILL/SEPSIS IMPROVED HYPOKALEMIA PLAN- monitor labs
--- NOTE | 2020-03-06 14:59 | PN ---
Progress Note, Physician History of Present Illness: Pt in good spirits Decreased swelling of legs No SOB No chest pain No abd pain No GI bleeding - Current Medication List Current Medications: Active Medications Acetaminophen (Tylenol -) 650 mg PO Q6H PRN PRN Reason: FEVER Albuterol Sulfate (Ventolin Hfa Inhaler -) 2 puff IH Q6H PRN PRN Reason: SHORTNESS OF BREATH Amlodipine Besylate (Norvasc -) 10 mg PO DAILY [facility] Last Admin: 03/06/20 09:39 Dose: 10 mg Documented by: Aspirin (Asa -) 81 mg PO DAILY [facility] Last Admin: 03/06/20 09:43 Dose: 81 mg Documented by: Atorvastatin Calcium (Lipitor -) 80 mg PO HS [facility] Last Admin: 03/05/20 21:49 Dose: 80 mg Documented by: Carvedilol (Coreg -) 25 mg PO BID [facility] Last Admin: 03/06/20 09:39 Dose: 25 mg Documented by: Clopidogrel Bisulfate (Plavix -) 75 mg PO DAILY [facility] Last Admin: 03/06/20 09:39 Dose: 75 mg Documented by: Enoxaparin Sodium (Lovenox -) 30 mg SQ DAILY [facility] Last Admin: 03/06/20 09:49 Dose: 30 mg Documented by: Gabapentin (Neurontin -) 400 mg PO Q12H PRN PRN Reason: PAIN Cefepime HCl 1 gm/ Dextrose 100 mls @ 100 mls/hr IVPB Q8H-IV [facility]; Protocol Last Admin: 03/06/20 09:45 Dose: 100 mls/hr Documented by: Losartan Potassium (Cozaar -) 25 mg PO DAILY [facility] Last Admin: 03/06/20 09:39 Dose: 25 mg Documented by: Potassium Chloride (K-Dur -) 40 meq PO DAILY [facility] Last Admin: 03/06/20 09:40 Dose: 40 meq Documented by: Tamsulosin HCl (Flomax -) 0.8 mg PO DAILY [facility] Last Admin: 03/06/20 09:40 Dose: 0.8 mg Documented by: Torsemide (Demadex -) 20 mg PO DAILY [facility] Last Admin: 03/06/20 09:44 Dose: 20 mg Documented by: Umeclidinium/Vilanterol (Anoro Ellipta 62.5-25 Mcg Inh) 1 puff IH DAILY [facility] Last Admin: 03/06/20 09:51 Dose: 1 puff Documented by: - Objective Vital Signs: Vital Signs Temperature 98.3 F 03/06/20 09:52 Pulse Rate 70 03/06/20 09:52 Respiratory Rate 18 03/06/20 09:52 Blood Pressure 156/61 03/06/20 09:52 O2 Sat by Pulse Oximetry (%) 98 03/06/20 09:52 Constitutional: Yes: Calm Eyes: Yes: Conjunctiva Clear, EOM Intact HENT: Yes: Atraumatic, Normocephalic Neck: Yes: Supple, Trachea Midline Cardiovascular: Yes: Regular Rate and Rhythm, S1, S2 Respiratory: Yes: Regular, CTA Bilaterally Gastrointestinal: Yes: Normal Bowel Sounds, Soft Musculoskeletal: Yes: Joint Stiffness Edema: No Peripheral Pulses WNL: Yes Labs: CBC, BMP 03/06/20 08:14 03/06/20 08:14 INR, PTT INR 1.20 (0.83-1.09) H 03/03/20 21:00 Problem List - Problems (1) S/P TURP Code(s): Z90.79 - ACQUIRED ABSENCE OF OTHER GENITAL ORGAN(S) (2) Sepsis Code(s): A41.9 - SEPSIS, UNSPECIFIED ORGANISM Qualifiers: Sepsis type: sepsis due to unspecified organism Sepsis acute organ dysfunction status: unspecified Qualified Code(s): A41.9 - Sepsis, unspecified organism (3) UTI (urinary tract infection) Code(s): N39.0 - URINARY TRACT INFECTION, SITE NOT SPECIFIED Qualifiers: Urinary tract infection type: acute cystitis Hematuria presence: with hematuria Qualified Code(s): N30.01 - Acute cystitis with hematuria (4) Acute NC, inferior wall, initial episode of care Code(s): I21.19 - STEMI INVOLVING OTH CORONARY ARTERY OF INFERIOR WALL (5) Acute exacerbation of chronic obstructive pulmonary disease (COPD) Code(s): J44.1 - CHRONIC OBSTRUCTIVE PULMONARY DISEASE W (ACUTE) EXACERBATION (6) COPD (chronic obstructive pulmonary disease) with acute bronchitis Code(s): J44.0 - CHR OBSTRUCTIVE PULMON DISEASE WITH (ACUTE) LOWER RESP INFCT; J20.9 - ACUTE BRONCHITIS, UNSPECIFIED (7) Calcaneal spur, right foot Code(s): M77.31 - CALCANEAL SPUR, RIGHT FOOT (8) Coronary artery disease Code(s): I25.10 - ATHSCL HEART DISEASE OF [place] CORONARY ARTERY W/O ANG PCTRS Qualifiers: Coronary Disease-Associated Artery/Lesion type: seminole artery [place] vs. transplanted heart: seminole heart Associated angina: without angina Qualified Code(s): I25.10 - Atherosclerotic heart disease of [place] coronary artery without angina pectoris (9) HLD (hyperlipidemia) Code(s): E78.5 - HYPERLIPIDEMIA, UNSPECIFIED Qualifiers: Hyperlipidemia type: pure hypercholesterolemia Qualified Code(s): E78.00 - Pure hypercholesterolemia, unspecified; E78.0 - Pure hypercholesterolemia (10) Hypercholesterolemia Code(s): E78.00 - PURE HYPERCHOLESTEROLEMIA, UNSPECIFIED (11) Hypokalemia Code(s): E87.6 - HYPOKALEMIA (12) Hypoxia Code(s): R09.02 - HYPOXEMIA (13) Lumbar radiculopathy, chronic Code(s): M54.16 - RADICULOPATHY, LUMBAR REGION (14) NSTEMI (non-ST elevated myocardial infarction) Code(s): I21.4 - NON-ST ELEVATION (NSTEMI) MYOCARDIAL INFARCTION (15) Obesity (BMI 30.0-34.9) Code(s): E66.9 - OBESITY, UNSPECIFIED (16) Presence of drug-eluting stent in right coronary artery Code(s): Z95.5 - PRESENCE OF CORONARY ANGIOPLASTY IMPLANT AND GRAFT (17) Sciatica Code(s): M54.30 - SCIATICA, UNSPECIFIED SIDE Qualifiers: Laterality: right Qualified Code(s): M54.31 - Sciatica, right side (18) Shingles (herpes zoster) polyneuropathy Code(s): B02.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 (19) Sleep apnea Code(s): G47.30 - SLEEP APNEA, UNSPECIFIED Qualifiers: Sleep apnea type: obstructive Qualified Code(s): G47.33 - Obstructive sleep apnea (adult) (pediatric) (20) Syncope Code(s): R55 - SYNCOPE AND COLLAPSE Assessment/Plan (1) S/P TURP Code(s): Z90.79 - ACQUIRED ABSENCE OF OTHER GENITAL ORGAN(S) (2) Sepsis Code(s): A41.9 - SEPSIS, UNSPECIFIED ORGANISM Qualifiers: Sepsis type: sepsis due to unspecified organism Sepsis acute organ dysfunction status: unspecified Qualified Code(s): A41.9 - Sepsis, unspecified organism (3) UTI (urinary tract infection) Code(s): N39.0 - URINARY TRACT INFECTION, SITE NOT SPECIFIED Qualifiers: Urinary tract infection type: acute cystitis Hematuria presence: with hematuria Qualified Code(s): N30.01 - Acute cystitis with hematuria (4) H/O Acute NC, inferior wall NC S/P Stent Code(s): I21.19 - STEMI INVOLVING OTH CORONARY ARTERY OF INFERIOR WALL (5) Acute exacerbation of chronic obstructive pulmonary disease (COPD) Code(s): J44.1 - CHRONIC OBSTRUCTIVE PULMONARY DISEASE W (ACUTE) EXACERBATION (6) COPD (chronic obstructive pulmonary disease) with acute bronchitis Code(s): J44.0 - CHR OBSTRUCTIVE PULMON DISEASE WITH (ACUTE) LOWER RESP INFCT; J20.9 - ACUTE BRONCHITIS, UNSPECIFIED (7) Calcaneal spur, right foot Code(s): M77.31 - CALCANEAL SPUR, RIGHT FOOT (8) Coronary artery disease Code(s): I25.10 - ATHSCL HEART DISEASE OF [place] CORONARY ARTERY W/O ANG PCTRS Qualifiers: Coronary Disease-Associated Artery/Lesion type: semin[place] artery [place] vs. transplanted heart: seminole heart Associated angina: without angina Qualified Code(s): I25.10 - Atherosclerotic heart disease of [place] coronary artery without angina pectoris (9) HLD (hyperlipidemia) Code(s): E78.5 - HYPERLIPIDEMIA, UNSPECIFIED Qualifiers: Hyperlipidemia type: pure hypercholesterolemia Qualified Code(s): E78.00 - Pure hypercholesterolemia, unspecified; E78.0 - Pure hypercholesterolemia (10) Hypercholesterolemia Code(s): E78.00 - PURE HYPERCHOLESTEROLEMIA, UNSPECIFIED (11) Hypokalemia Code(s): E87.6 - HYPOKALEMIA (12) Hypoxia Code(s): R09.02 - HYPOXEMIA (13) Lumbar radiculopathy, chronic Code(s): M54.16 - RADICULOPATHY, LUMBAR REGION (14) NSTEMI (non-ST elevated myocardial infarction) Code(s): I21.4 - NON-ST ELEVATION (NSTEMI) MYOCARDIAL INFARCTION (15) Obesity (BMI 30.0-34.9) Code(s): E66.9 - OBESITY, UNSPECIFIED (16) Presence of drug-eluting stent in right coronary artery Code(s): Z95.5 - PRESENCE OF CORONARY ANGIOPLASTY IMPLANT AND GRAFT (17) Sciatica Code(s): M54.30 - SCIATICA, UNSPECIFIED SIDE Qualifiers: Laterality: right Qualified Code(s): M54.31 - Sciatica, right side (18) Shingles (herpes zoster) polyneuropathy Code(s): B02.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 (19) Sleep apnea : at Home BIPAP Pt refused here Code(s): G47.30 - SLEEP APNEA, UNSPECIFIED Qualifiers: Sleep apnea type: obstructive Qualified Code(s): G47.33 - Obstructive sleep apnea (adult) (pediatric) (20) Syncope Code(s): R55 - SYNCOPE AND COLLAPSE Pt refusing Bipap Hypokalemia sepsis better On IV antibiuotics
--- NOTE | 2020-03-06 16:27 | PN ---
Progress Note (short form) - Note Progress Note: Chief Complaint: Events noted, notes reviewed, Sitting in a chair, denies any chest pain or dyspnea History of Present Illness: Seen and examined. Events noted, notes reviewed, Sitting in a chair, denies any chest pain or dyspnea Medications: Current Medications Generic Name Dose Route Start Last Admin Trade Name Freq PRN Reason Stop Dose Admin Acetaminophen 650 mg 03/03/20 23:37 Tylenol - PO Q6H PRN FEVER Albuterol Sulfate 2 puff 03/03/20 23:30 Ventolin Hfa Inhaler - IH Q6H PRN SHORTNESS OF BREATH Amlodipine Besylate 10 mg 03/04/20 10:00 03/06/20 09:39 Norvasc - PO 10 mg DAILY [facility] Administration Aspirin 81 mg 03/04/20 10:00 03/06/20 09:43 Asa - PO 81 mg DAILY [facility] Administration Atorvastatin Calcium 80 mg 03/04/20 22:00 03/05/20 21:49 Lipitor - PO 80 mg HS [facility] Administration Carvedilol 25 mg 03/04/20 10:00 03/06/20 09:39 Coreg - PO 25 mg BID [facility] Administration Clopidogrel Bisulfate 75 mg 03/04/20 10:00 03/06/20 09:39 Plavix - PO 75 mg DAILY [facility] Administration Enoxaparin Sodium 30 mg 03/04/20 10:00 03/06/20 09:49 Lovenox - SQ 30 mg DAILY [facility] Administration Gabapentin 400 mg 03/03/20 23:30 Neurontin - PO Q12H PRN PAIN Cefepime HCl 1 gm/ Dextrose 100 mls @ 100 mls/hr 03/04/20 20:00 03/06/20 09:45 IVPB 100 mls/hr Q8H-IV [facility] Administration Protocol Losartan Potassium 25 mg 03/06/20 10:00 03/06/20 09:39 Cozaar - PO 25 mg DAILY [facility] Administration Potassium Chloride 40 meq 03/06/20 10:00 03/06/20 09:40 K-Dur - PO 40 meq DAILY [facility] Administration Tamsulosin HCl 0.8 mg 03/04/20 10:00 03/06/20 09:40 Flomax - PO 0.8 mg DAILY [facility] Administration Torsemide 20 mg 03/04/20 10:00 03/06/20 09:44 Demadex - PO 20 mg DAILY [facility] Administration Umeclidinium/Vilanterol 1 puff 03/04/20 10:00 03/06/20 09:51 Anoro Ellipta 62.5-25 Mcg Inh IH 1 puff DAILY [facility] Administration Vital Signs: Last Vital Signs Temp Pulse Resp BP Pulse Ox 97.9 F 66 18 152/71 96 03/06/20 15:00 03/06/20 15:00 03/06/20 15:00 03/06/20 15:00 03/06/20 15:00 Intake & Output 03/03/20 03/04/20 03/05/20 03/06/20 23:59 23:59 23:59 23:59 Intake Total 2125 1710 100 Output Total 1825 950 100 Balance 300 760 0 Weight 215 lb 206 lb 9 oz 206 lb Constitutional: No Distress, Calm Neck: Supple Negative JVD No Bruit Respiratory: Clear tp A&P Cardiovascular: S1 S2 Regular Rate Rhythm Gastrointestinal: Soft Benign Normal Bowel Sounds Ext: Negative Edema Labs: CBC, BMP 03/06/20 08:14 03/06/20 08:14 Hepatic Panel Total Bilirubin 0.5 mg/dL (0.2-1) 03/06/20 08:14 AST 14 U/L (15-37) L 03/06/20 08:14 ALT 28 U/L (13-61) 03/06/20 08:14 Alkaline Phosphatase 61 U/L (45-117) 03/06/20 08:14 Albumin 3.0 g/dl (3.4-5.0) L 03/06/20 08:14 INR, PTT INR 1.20 (0.83-1.09) H 03/03/20 21:00 Assessment/Plan ASSESSMENT: 1. Sepsis syndrome related to genitourinary source post TURP 2. CAD post NSTEMI post PCI/stent angina pectoris 3. Diastolic LV dysfunction with class 0 NYHA classification LV failure 4. HTN 5. Diabetes mellitus 6. Hypercholesterolemia 7. History of pulmonary thromboembolism 8. 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 History of obstructive sleep apnea syndrome 10. CKD 11. Hypokalemia PLAN: 1. Continue ASA and Plavix with caution 2. Continue Lipitor 3. Continue Carvedilol 4. Continue Cozaar with close monitoring of renal function 5. Continue Norvasc 6. Continue Demadex and K-Dur supplementation, correction of potassium level 7. Antibiotics as per the primary team Cierra Figueroa M.D.
--- NOTE | 2020-03-06 20:40 | PN ---
Progress Note, Physician History of Present Illness: Pt was having hematuria today. Noted a blood clot pass into toilet earlier and currently with some blood on the diaper. No suprapubic/abdominal pressure at this time. - Current Medication List Current Medications: Active Medications Acetaminophen (Tylenol -) 650 mg PO Q6H PRN PRN Reason: FEVER Albuterol Sulfate (Ventolin Hfa Inhaler -) 2 puff IH Q6H PRN PRN Reason: SHORTNESS OF BREATH Amlodipine Besylate (Norvasc -) 10 mg PO DAILY [facility] Last Admin: 03/06/20 09:39 Dose: 10 mg Documented by: Aspirin (Asa -) 81 mg PO DAILY [facility] Last Admin: 03/06/20 09:43 Dose: 81 mg Documented by: Atorvastatin Calcium (Lipitor -) 80 mg PO HS [facility] Last Admin: 03/05/20 21:49 Dose: 80 mg Documented by: Carvedilol (Coreg -) 25 mg PO BID [facility] Last Admin: 03/06/20 09:39 Dose: 25 mg Documented by: Clopidogrel Bisulfate (Plavix -) 75 mg PO DAILY [facility] Last Admin: 03/06/20 09:39 Dose: 75 mg Documented by: Enoxaparin Sodium (Lovenox -) 30 mg SQ DAILY [facility] Last Admin: 03/06/20 09:49 Dose: 30 mg Documented by: Gabapentin (Neurontin -) 400 mg PO Q12H PRN PRN Reason: PAIN Cefepime HCl 1 gm/ Dextrose 100 mls @ 100 mls/hr IVPB Q8H-IV [facility]; Protocol Last Admin: 03/06/20 17:02 Dose: 100 mls/hr Documented by: Losartan Potassium (Cozaar -) 25 mg PO DAILY [facility] Last Admin: 03/06/20 09:39 Dose: 25 mg Documented by: Potassium Chloride (K-Dur -) 40 meq PO DAILY [facility] Last Admin: 03/06/20 09:40 Dose: 40 meq Documented by: Tamsulosin HCl (Flomax -) 0.8 mg PO DAILY [facility] Last Admin: 03/06/20 09:40 Dose: 0.8 mg Documented by: Torsemide (Demadex -) 20 mg PO DAILY [facility] Last Admin: 03/06/20 09:44 Dose: 20 mg Documented by: Umeclidinium/Vilanterol (Anoro Ellipta 62.5-25 Mcg Inh) 1 puff IH DAILY [facility] Last Admin: 03/06/20 09:51 Dose: 1 puff Documented by: - Objective Vital Signs: Vital Signs Temperature 98.1 F 03/06/20 18:21 Pulse Rate 71 03/06/20 18:21 Respiratory Rate 22 H 03/06/20 18:21 Blood Pressure 159/63 03/06/20 18:21 O2 Sat by Pulse Oximetry (%) 96 03/06/20 15:00 Constitutional: Yes: No Distress, Calm Cardiovascular: Yes: Regular Rate and Rhythm Respiratory: Yes: Regular Gastrointestinal: Yes: Normal Bowel Sounds, Soft Genitourinary: Yes: Hematuria Extremities: Yes: WNL Integumentary: Yes: WNL Neurological: Yes: Alert, Oriented Labs: CBC, BMP 03/06/20 08:14 03/06/20 08:14 INR, PTT INR 1.20 (0.83-1.09) H 03/03/20 21:00 Microbiology 03/03/20 21:00 Urine - Urine Clean Catch Urine Culture - Final Escherichia Coli 03/03/20 21:00 Blood - Peripheral Venous Blood Culture - Preliminary NO GROWTH OBTAINED AFTER 48 HOURS, INCUBATION TO CONTINUE FOR 3 DAYS. 03/03/20 21:00 Blood - Peripheral Venous Blood Culture - Preliminary NO GROWTH OBTAINED AFTER 48 HOURS, INCUBATION TO CONTINUE FOR 3 DAYS. Problem List - Problems (1) BILL (acute kidney injury) Code(s): N17.9 - ACUTE KIDNEY FAILURE, UNSPECIFIED (2) S/P TURP Code(s): Z90.79 - ACQUIRED ABSENCE OF OTHER GENITAL ORGAN(S) (3) Sepsis Code(s): A41.9 - SEPSIS, UNSPECIFIED ORGANISM Qualifiers: Sepsis type: sepsis due to unspecified organism Sepsis acute organ dysfunction status: unspecified Qualified Code(s): A41.9 - Sepsis, unspecified organism (4) UTI (urinary tract infection) Code(s): N39.0 - URINARY TRACT INFECTION, SITE NOT SPECIFIED Qualifiers: Urinary tract infection type: acute cystitis Hematuria presence: with hematuria Qualified Code(s): N30.01 - Acute cystitis with hematuria (5) BPH (benign prostatic hyperplasia) Code(s): N40.0 - BENIGN PROSTATIC HYPERPLASIA WITHOUT LOWER URINRY TRACT SYMP (6) HLD (hyperlipidemia) Code(s): E78.5 - HYPERLIPIDEMIA, UNSPECIFIED Qualifiers: Hyperlipidemia type: pure hypercholesterolemia Qualified Code(s): E78.00 - Pure hypercholesterolemia, unspecified; E78.0 - Pure hypercholesterolemia (7) Hypertensive heart disease Code(s): I11.9 - HYPERTENSIVE HEART DISEASE WITHOUT HEART FAILURE Qualifiers: Heart failure presence: without heart failure Qualified Code(s): I11.9 - Hypertensive heart disease without heart failure (8) Obesity (BMI 30.0-34.9) Code(s): E66.9 - OBESITY, UNSPECIFIED (9) Sleep apnea Code(s): G47.30 - SLEEP APNEA, UNSPECIFIED Qualifiers: Sleep apnea type: obstructive Qualified Code(s): G47.33 - Obstructive sleep apnea (adult) (pediatric) Assessment/Plan Sepsis Complicated UTI +hematuria s/p TURP BILL BPH CAD COPD Hx of COVID-19 -- Urine Cx +E. coli -- switch antibiotics to Ceftriaxone -- Pt with hematuria, reports passing clot - monitor for urinary retention, Urology follow up -- renal function improved -- blood cultures neg so far -- continue monitor temps/vitals
[2020-03-06] MEDS: ACETAMINOPHEN 325 MG TABLET (FP) PO PRN (21:46)
[2020-03-06] MEDS: ATORVASTATIN CA 80 MG TABLET (FP) PO SCH (21:48)
--- NOTE | 2020-03-06 22:28 | PN ---
Progress Note (short form) - Note Progress Note: called for difficult aguilar insertion, [address] placed immediate urine return. tinged urine. 400ml, patient reports relief other port plugged may start CBI if needed
[2020-03-07] MEDS ORDERED: cefTRIAXone SODIUM 1 GM VIAL ONE (01:33)
[2020-03-07] MEDS ORDERED: DEXTROSE 5%-WATER - 50 ML IVPB ONE (01:34)
[2020-03-07] MEDS: CEFTRIAXONE 1 GM in DEXTROSE 5%-WATER - 50 ML IVPB SCH (01:37)
--- NOTE | 2020-03-07 06:58 | PN ---
Progress Note (short form) - Note Progress Note: Chief Complaint: Events noted, notes reviewed, sitting in a chair, Dove catheter reinserted by urology for urinary retention, denies any chest pain or dyspnea History of Present Illness: Seen and examined. Events noted, notes reviewed, sitting in a chair, Dove catheter reinserted by urology for urinary retention, denies any chest pain or dyspnea Medications: Current Medications Generic Name Dose Route Start Last Admin Trade Name Freq PRN Reason Stop Dose Admin Acetaminophen 650 mg 03/03/20 23:37 03/06/20 21:46 Tylenol - PO 650 mg Q6H PRN Administration FEVER Albuterol Sulfate 2 puff 03/03/20 23:30 Ventolin Hfa Inhaler - IH Q6H PRN SHORTNESS OF BREATH Amlodipine Besylate 10 mg 03/04/20 10:00 03/06/20 09:39 Norvasc - PO 10 mg DAILY RYLAN Administration Aspirin 81 mg 03/04/20 10:00 03/06/20 09:43 Asa - PO 81 mg DAILY RYLAN Administration Atorvastatin Calcium 80 mg 03/04/20 22:00 03/06/20 21:48 Lipitor - PO 80 mg HS RYLAN Administration Carvedilol 25 mg 03/04/20 10:00 03/06/20 21:49 Coreg - PO 25 mg BID RYLAN Administration Clopidogrel Bisulfate 75 mg 03/04/20 10:00 03/06/20 09:39 Plavix - PO 75 mg DAILY RYLAN Administration Enoxaparin Sodium 30 mg 03/04/20 10:00 03/06/20 09:49 Lovenox - SQ 30 mg DAILY R[facility]AN Administration Gabapentin 400 mg 03/03/20 23:30 Neurontin - PO Q12H PRN PAIN Ceftriaxone Sodium 1 gm/ 50 mls @ 100 mls/hr 03/07/20 01:00 03/07/20 01:37 Dextrose IVPB 100 mls/hr DAILY@0000 RYLAN Administration Protocol Losartan Potassium 25 mg 03/06/20 10:00 03/06/20 09:39 Cozaar - PO 25 mg DAILY R[facility]AN Administration Potassium Chloride 40 meq 03/06/20 10:00 03/06/20 09:40 K-Dur - PO 40 meq DAILY R[facility]AN Administration Tamsulosin HCl 0.8 mg 03/04/20 10:00 03/06/20 09:40 Flomax - PO 0.8 mg DAILY RYLAN Administration Torsemide 20 mg 03/04/20 10:00 03/06/20 09:44 Demadex - PO 20 mg DAILY R[facility]AN Administration Umeclidinium/Vilanterol 1 puff 03/04/20 10:00 03/06/20 09:51 Anoro Ellipta 62.5-25 Mcg Inh IH 1 puff DAILY RYLAN Administration Vital Signs: Last Vital Signs Temp Pulse Resp BP Pulse Ox 97.7 F 77 20 157/74 97 03/07/20 06:16 03/07/20 06:16 03/07/20 06:16 03/07/20 06:16 03/07/20 02:07 Intake & Output 03/04/20 03/05/20 03/06/20 03/07/20 23:59 23:59 23:59 23:59 Intake Total 2125 7282 670 5142 Output Total 7336 992 2624 4200 Balance 300 760 -600 -50 Weight 206 lb 9 oz 206 lb Constitutional: No Distress, Calm Neck: Supple Negative JVD No Bruit Respiratory: Clear tp A&P Cardiovascular: S1 S2 Regular Rate Rhythm Gastrointestinal: Soft Benign Normal Bowel Sounds Ext: Negative Edema Labs: CBC, BMP 03/06/20 08:14 03/06/20 08:14 Hepatic Panel Total Bilirubin 0.5 mg/dL (0.2-1) 03/06/20 08:14 AST 14 U/L (15-37) L 03/06/20 08:14 ALT 28 U/L (13-61) 03/06/20 08:14 Alkaline Phosphatase 61 U/L (45-117) 03/06/20 08:14 Albumin 3.0 g/dl (3.4-5.0) L 03/06/20 08:14 INR, PTT INR 1.20 (0.83-1.09) H 03/03/20 21:00 Assessment/Plan ASSESSMENT: 1. Sepsis syndrome related to genitourinary source post TURP- Dove catheter reinsertion for urinary retention 2. CAD post NSTEMI post PCI/stent angina pectoris 3. Diastolic LV dysfunction with class 0 NYHA classification LV failure 4. HTN 5. Diabetes mellitus 6. Hypercholesterolemia 7. History of pulmonary thromboembolism 8. 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 History of obstructive sleep apnea syndrome 10. CKD 11. Hypokalemia PLAN: 1. Continue ASA and Plavix with caution 2. Continue Lipitor 3. Continue Carvedilol 4. Continue Cozaar with close monitoring of renal function, dose titration as needed 5. Continue Norvasc 6. Continue Demadex and K-Dur supplementation, correction of potassium level 7. Antibiotics as per the primary team Cierra Figueroa M.D.
[2020-03-07] MEDS: ACETAMINOPHEN 325 MG TABLET (FP) PO PRN ×3 (08:06→22:37)
[2020-03-07 10:02] LABS: BASO % 0.5 % (0-2.0); EOS % 1.1 % (0-4.5); HEMATOCRIT 31.4 % (35.4-49); HEMOGLOBIN 10.3 GM/dL (11.7-16.9); LYMPH % 13.1 % (8-40); MCH 27.2 pg (25.7-33.7); MCHC 32.6 g/dl (32.0-35.9); MEAN CELL VOLUME 83.4 fl (80-96); MEAN PLT VOLUME 8.1 fl (7.5-11.1); MONO % 6.9 % (3.8-10.2); NEUT % 78.4 % (42.8-82.8); PLATELET COUNT 246 K/MM3 (134-434); RBC 3.77 M/mm3 (4.00-5.60); RDW 15.7 % (11.9-15.9); WHITE BLOOD COUNT 7.8 K/mm3 (4.0-10.0)
[2020-03-07] MEDS: TAMSULOSIN HCL 0.4 MG CAP PO SCH (10:02)
[2020-03-07] MEDS: POTASSIUM CHLORIDE TABS 20 MEQ TABLET.ER (FP) PO SCH (10:02)
[2020-03-07] MEDS: LOSARTAN POTASSIUM 25 MG TABLET PO SCH (10:03)
[2020-03-07] MEDS: amLODIPine BESYLATE 10 MG TABLET (FP) PO SCH (10:03)
[2020-03-07] MEDS: CARVEDILOL 25 MG TABLET (FP) PO SCH ×2 (10:03→22:37)
[2020-03-07] MEDS: TORSEMIDE 20 MG TABLET (FP) PO SCH (10:03)
[2020-03-07] MEDS: UMECLIDINIUM/VILANTEROL (ANORO) 62.5/25 MCG INHALER IH SCH (10:06)
[2020-03-07 10:33] LABS: BLOOD UREA NITROGEN 20.1 mg/dL (7-18); CALCIUM 8.6 mg/dL (8.5-10.1); CREATININE 1.3 mg/dL (0.55-1.3); POTASSIUM 3.1 mmol/L (3.5-5.1)
[2020-03-07] MEDS ORDERED: LOSARTAN POTASSIUM 25 MG TABLET PO ONE (11:14)
--- NOTE | 2020-03-07 13:29 | PN ---
Progress Note (short form) - Note Progress Note: 1. BILL 2. sepsis 3. hx PE 4. pulm fibrosis 5. s/p TURP 6. copd 7. cad Active Medications Acetaminophen (Tylenol -) 650 mg PO Q6H PRN PRN Reason: FEVER Last Admin: 03/07/20 08:06 Dose: 650 mg Documented by: Albuterol Sulfate (Ventolin Hfa Inhaler -) 2 puff IH Q6H PRN PRN Reason: SHORTNESS OF BREATH Amlodipine Besylate (Norvasc -) 10 mg PO DAILY [facility] Last Admin: 03/07/20 10:03 Dose: 10 mg Documented by: Aspirin (Asa -) 81 mg PO DAILY [facility] Last Admin: 03/06/20 09:43 Dose: 81 mg Documented by: Atorvastatin Calcium (Lipitor -) 80 mg PO HS [facility] Last Admin: 03/06/20 21:48 Dose: 80 mg Documented by: Carvedilol (Coreg -) 25 mg PO BID [facility] Last Admin: 03/07/20 10:03 Dose: 25 mg Documented by: Clopidogrel Bisulfate (Plavix -) 75 mg PO DAILY [facility] Last Admin: 03/06/20 09:39 Dose: 75 mg Documented by: Enoxaparin Sodium (Lovenox -) 30 mg SQ DAILY [facility] Last Admin: 03/06/20 09:49 Dose: 30 mg Documented by: Gabapentin (Neurontin -) 400 mg PO Q12H PRN PRN Reason: PAIN Ceftriaxone Sodium 1 gm/ (Dextrose) 50 mls @ 100 mls/hr IVPB DAILY@0000 [facility]; Protocol Last Admin: 03/07/20 01:37 Dose: 100 mls/hr Documented by: Losartan Potassium (Cozaar -) 50 mg PO DAILY [facility] Potassium Chloride (K-Dur -) 40 meq PO DAILY [facility] Last Admin: 03/07/20 10:02 Dose: 40 meq Documented by: Potassium Chloride (K-Dur -) 40 meq PO ONCE ONE Stop: 03/07/20 16:01 Tamsulosin HCl (Flomax -) 0.8 mg PO DAILY [facility] Last Admin: 03/07/20 10:02 Dose: 0.8 mg Documented by: Torsemide (Demadex -) 20 mg PO DAILY [facility] Last Admin: 03/07/20 10:03 Dose: 20 mg Documented by: Umeclidinium/Vilanterol (Anoro Ellipta 62.5-25 Mcg Inh) 1 puff IH DAILY [facility] Last Admin: 03/07/20 10:06 Dose: 1 puff Documented by: Last Vital Signs Temp Pulse Resp BP Pulse Ox 97.4 F L 72 20 162/75 96 03/07/20 08:56 03/07/20 08:56 03/07/20 09:00 03/07/20 08:56 03/07/20 09:00 CBC, BMP 03/07/20 09:20 03/07/20 09:20 CBC, BMP 03/06/20 08:14 03/06/20 08:14 s/p BILL/SEPSIS IMPROVED HYPOKALEMIA replaced PLAN- monitor labs
--- NOTE | 2020-03-07 14:16 | PN ---
Progress Note, Physician History of Present Illness: Pt had Urinary retention with Hematuria ASA/Plavix/Loenox on hold for 3 days Bladder scan [address] Jj/ Dr Baker Covering him Catheter was inserted and Pt on Bladder irrigation now Mild hematuria still seen Hemodynamically stable Pt Hypokalemia being corrected. No Fever No SOB No chest pain - Current Medication List Current Medications: Active Medications Acetaminophen (Tylenol -) 650 mg PO Q6H PRN PRN Reason: FEVER Last Admin: 03/07/20 08:06 Dose: 650 mg Documented by: Albuterol Sulfate (Ventolin Hfa Inhaler -) 2 puff IH Q6H PRN PRN Reason: SHORTNESS OF BREATH Amlodipine Besylate (Norvasc -) 10 mg PO DAILY [facility] Last Admin: 03/07/20 10:03 Dose: 10 mg Documented by: Aspirin (Asa -) 81 mg PO DAILY [facility] Last Admin: 03/06/20 09:43 Dose: 81 mg Documented by: Atorvastatin Calcium (Lipitor -) 80 mg PO HS [facility] Last Admin: 03/06/20 21:48 Dose: 80 mg Documented by: Carvedilol (Coreg -) 25 mg PO BID [facility] Last Admin: 03/07/20 10:03 Dose: 25 mg Documented by: Clopidogrel Bisulfate (Plavix -) 75 mg PO DAILY [facility] Last Admin: 03/06/20 09:39 Dose: 75 mg Documented by: Enoxaparin Sodium (Lovenox -) 30 mg SQ DAILY [facility] Last Admin: 03/06/20 09:49 Dose: 30 mg Documented by: Gabapentin (Neurontin -) 400 mg PO Q12H PRN PRN Reason: PAIN Ceftriaxone Sodium 1 gm/ (Dextrose) 50 mls @ 100 mls/hr IVPB DAILY@0000 [facility]; Protocol Last Admin: 03/07/20 01:37 Dose: 100 mls/hr Documented by: Losartan Potassium (Cozaar -) 50 mg PO DAILY [facility] Potassium Chloride (K-Dur -) 40 meq PO DAILY [facility] Last Admin: 03/07/20 10:02 Dose: 40 meq Documented by: Potassium Chloride (K-Dur -) 40 meq PO ONCE ONE Stop: 03/07/20 16:01 Tamsulosin HCl (Flomax -) 0.8 mg PO DAILY [facility] Last Admin: 03/07/20 10:02 Dose: 0.8 mg Documented by: Torsemide (Demadex -) 20 mg PO DAILY [facility] Last Admin: 03/07/20 10:03 Dose: 20 mg Documented by: Umeclidinium/Vilanterol (Anoro Ellipta 62.5-25 Mcg Inh) 1 puff IH DAILY [facility] Last Admin: 03/07/20 10:06 Dose: 1 puff Documented by: - Objective Vital Signs: Vital Signs Temperature 97.4 F L 03/07/20 08:56 Pulse Rate 72 03/07/20 08:56 Respiratory Rate 03/07/20 09:00 Blood Pressure 162/75 03/07/20 08:56 O2 Sat by Pulse Oximetry (%) 96 03/07/20 09:00 Constitutional: Yes: Anxious Eyes: Yes: Conjunctiva Clear, EOM Intact HENT: Yes: Atraumatic, Normocephalic Neck: Yes: Supple, Trachea Midline Cardiovascular: Yes: Regular Rate and Rhythm, S1, S2 Respiratory: Yes: Regular, CTA Bilaterally Gastrointestinal: Yes: Normal Bowel Sounds, Soft Musculoskeletal: Yes: Joint Stiffness Edema: Yes Peripheral Pulses WNL: Yes Neurological: Yes: Alert, Oriented, Cran Nerves II-XII Intact Labs: CBC, BMP 03/07/20 09:20 03/07/20 09:20 INR, PTT INR 1.20 (0.83-1.09) H 03/03/20 21:00 Problem List - Problems (1) S/P TURP Code(s): Z90.79 - ACQUIRED ABSENCE OF OTHER GENITAL ORGAN(S) (2) Sepsis Code(s): A41.9 - SEPSIS, UNSPECIFIED ORGANISM Qualifiers: Sepsis type: sepsis due to unspecified organism Sepsis acute organ dysfunction status: unspecified Qualified Code(s): A41.9 - Sepsis, unspecified organism (3) UTI (urinary tract infection) Code(s): N39.0 - URINARY TRACT INFECTION, SITE NOT SPECIFIED Qualifiers: Urinary tract infection type: acute cystitis Hematuria presence: with hematuria Qualified Code(s): N30.01 - Acute cystitis with hematuria (4) Acute ID, inferior wall, initial episode of care Code(s): I21.19 - STEMI INVOLVING OTH CORONARY ARTERY OF INFERIOR WALL (5) Acute exacerbation of chronic obstructive pulmonary disease (COPD) Code(s): J44.1 - CHRONIC OBSTRUCTIVE PULMONARY DISEASE W (ACUTE) EXACERBATION (6) COPD (chronic obstructive pulmonary disease) with acute bronchitis Code(s): J44.0 - CHR OBSTRUCTIVE PULMON DISEASE WITH (ACUTE) LOWER RESP INFCT; J20.9 - ACUTE BRONCHITIS, UNSPECIFIED (7) Calcaneal spur, right foot Code(s): M77.31 - CALCANEAL SPUR, RIGHT FOOT (8) Coronary artery disease Code(s): I25.10 - ATHSCL HEART DISEASE OF [place] CORONARY ARTERY W/O ANG PCTRS Qualifiers: Coronary Disease-Associated Artery/Lesion type: [place] artery [place] vs. transplanted heart: [place] heart Associated angina: without angina Qualified Code(s): I25.10 - Atherosclerotic heart disease of [place] coronary artery without angina pectoris (9) HLD (hyperlipidemia) Code(s): E78.5 - HYPERLIPIDEMIA, UNSPECIFIED Qualifiers: Hyperlipidemia type: pure hypercholesterolemia Qualified Code(s): E78.00 - Pure hypercholesterolemia, unspecified; E78.0 - Pure hypercholesterolemia (10) Hypercholesterolemia Code(s): E78.00 - PURE HYPERCHOLESTEROLEMIA, UNSPECIFIED (11) Hypokalemia Code(s): E87.6 - HYPOKALEMIA (12) Hypoxia Code(s): R09.02 - HYPOXEMIA (13) Lumbar radiculopathy, chronic Code(s): M54.16 - RADICULOPATHY, LUMBAR REGION (14) NSTEMI (non-ST elevated myocardial infarction) Code(s): I21.4 - NON-ST ELEVATION (NSTEMI) MYOCARDIAL INFARCTION (15) Obesity (BMI 30.0-34.9) Code(s): E66.9 - OBESITY, UNSPECIFIED (16) Presence of drug-eluting stent in right coronary artery Code(s): Z95.5 - PRESENCE OF CORONARY ANGIOPLASTY IMPLANT AND GRAFT (17) Sciatica Code(s): M54.30 - SCIATICA, UNSPECIFIED SIDE Qualifiers: Laterality: right Qualified Code(s): M54.31 - Sciatica, right side (18) Shingles (herpes zoster) polyneuropathy Code(s): B02.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 (19) Sleep apnea Code(s): G47.30 - SLEEP APNEA, UNSPECIFIED Qualifiers: Sleep apnea type: obstructive Qualified Code(s): G47.33 - Obstructive sleep apnea (adult) (pediatric) (20) Syncope Code(s): R55 - SYNCOPE AND COLLAPSE Assessment/Plan (1) S/P TURP Code(s): Z90.79 - ACQUIRED ABSENCE OF OTHER GENITAL ORGAN(S) (2) Sepsis Code(s): A41.9 - SEPSIS, UNSPECIFIED ORGANISM Qualifiers: Sepsis type: sepsis due to unspecified organism Sepsis acute organ dy sfunction status: unspecified Qualified Code(s): A41.9 - Sepsis, unspecified organism (3) UTI (urinary tract infection) Code(s): N39.0 - URINARY TRACT INFECTION, SITE NOT SPECIFIED Qualifiers: Urinary tract infection type: acute cystitis Hematuria presence: with hematuria Qualified Code(s): N30.01 - Acute cystitis with hematuria (4) H/O Acute ID, inferior wall ID S/P Stent Code(s): I21.19 - STEMI INVOLVING OTH CORONARY ARTERY OF INFERIOR WALL (5) Acute exacerbation of chronic obstructive pulmonary disease (COPD) Code(s): J44.1 - CHRONIC OBSTRUCTIVE PULMONARY DISEASE W (ACUTE) EXACERBATION (6) COPD (chronic obstructive pulmonary disease) with acute bronchitis Code(s): J44.0 - CHR OBSTRUCTIVE PULMON DISEASE WITH (ACUTE) LOWER RESP INFCT; J20.9 - ACUTE BRONCHITIS, UNSPECIFIED (7) Calcaneal spur, right foot Code(s): M77.31 - CALCANEAL SPUR, RIGHT FOOT (8) Coronary artery disease Code(s): I25.10 - ATHSCL HEART DISEASE OF [place] CORONARY ARTERY W/O ANG PCTRS Qualifiers: Coronary Disease-Associated Artery/Lesion type: [place] artery [place] vs. transplanted heart: [place] heart Associated angina: without angina Qualified Code(s): I25.10 - Atherosclerotic heart disease of [place] coronary artery without angina pectoris (9) HLD (hyperlipidemia) Code(s): E78.5 - HYPERLIPIDEMIA, UNSPECIFIED Qualifiers: Hyperlipidemia type: pure hypercholesterolemia Qualified Code(s): E78.00 - Pure hypercholesterolemia, unspecified; E78.0 - Pure hypercholesterolemia (10) Hypercholesterolemia Code(s): E78.00 - PURE HYPERCHOLESTEROLEMIA, UNSPECIFIED (11) Hypokalemia Code(s): E87.6 - HYPOKALEMIA (12) Hypoxia Code(s): R09.02 - HYPOXEMIA (13) Lumbar radiculopathy, chronic Code(s): M54.16 - RADICULOPATHY, LUMBAR REGION (14) NSTEMI (non-ST elevated myocardial infarction) Code(s): I21.4 - NON-ST ELEVATION (NSTEMI) MYOCARDIAL INFARCTION (15) Obesity (BMI 30.0-34.9) Code(s): E66.9 - OBESITY, UNSPECIFIED (16) Presence of drug-eluting stent in right coronary artery Code(s): Z95.5 - PRESENCE OF CORONARY ANGIOPLASTY IMPLANT AND GRAFT (17) Sciatica Code(s): M54.30 - SCIATICA, UNSPECIFIED SIDE Qualifiers: Laterality: right Qualified Code(s): M54.31 - Sciatica, right side (18) Shingles (herpes zoster) polyneuropathy Code(s): B02.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 (19) Sleep apnea : at Home BIPAP Pt refused here Code(s): G47.30 - SLEEP APNEA, UNSPECIFIED Qualifiers: Sleep apnea type: obstructive Qualified Code(s): G47.33 - Obstructive sleep apnea (adult) (pediatric) (20) Syncope Code(s): R55 - SYNCOPE AND COLLAPSE Pt refusing Bipap Pt had Urinary retention with Hematuria ASA/Plavix/Loenox on hold for 3 days Bladder scan [address] Jj/ Dr Baker Covering him Catheter was inserted and Pt on Bladder irrigation now Mild hematuria still seen Hemodynamically stable Pt Hypokalemia being corrected. sepsis better On IV antibiuotics
[2020-03-07] MEDS ORDERED: POTASSIUM CHLORIDE TABS 20 MEQ TABLET.ER (FP) PO ONE (16:00)
--- NOTE | 2020-03-07 20:20 | PN ---
Progress Note, Physician History of Present Illness: Pt had aguilar inserted for hematuria with clots with some urinary retention. Remains afebrile. No other specific complaints. Tolerating antibiotics. - Current Medication List Current Medications: Active Medications Acetaminophen (Tylenol -) 650 mg PO Q6H PRN PRN Reason: FEVER Last Admin: 03/07/20 16:03 Dose: 650 mg Documented by: Albuterol Sulfate (Ventolin Hfa Inhaler -) 2 puff IH Q6H PRN PRN Reason: SHORTNESS OF BREATH Amlodipine Besylate (Norvasc -) 10 mg PO DAILY [facility] Last Admin: 03/07/20 10:03 Dose: 10 mg Documented by: Aspirin (Asa -) 81 mg PO DAILY [facility] Last Admin: 03/06/20 09:43 Dose: 81 mg Documented by: Atorvastatin Calcium (Lipitor -) 80 mg PO HS [facility] Last Admin: 03/06/20 21:48 Dose: 80 mg Documented by: Carvedilol (Coreg -) 25 mg PO BID [facility] Last Admin: 03/07/20 10:03 Dose: 25 mg Documented by: Clopidogrel Bisulfate (Plavix -) 75 mg PO DAILY [facility] Last Admin: 03/06/20 09:39 Dose: 75 mg Documented by: Enoxaparin Sodium (Lovenox -) 30 mg SQ DAILY [facility] Last Admin: 03/06/20 09:49 Dose: 30 mg Documented by: Gabapentin (Neurontin -) 400 mg PO Q12H PRN PRN Reason: PAIN Ceftriaxone Sodium 1 gm/ (Dextrose) 50 mls @ 100 mls/hr IVPB DAILY@0000 [facility]; Protocol Last Admin: 03/07/20 01:37 Dose: 100 mls/hr Documented by: Losartan Potassium (Cozaar -) 50 mg PO DAILY [facility] Potassium Chloride (K-Dur -) 40 meq PO DAILY [facility] Last Admin: 03/07/20 10:02 Dose: 40 meq Documented by: Tamsulosin HCl (Flomax -) 0.8 mg PO DAILY [facility] Last Admin: 03/07/20 10:02 Dose: 0.8 mg Documented by: Torsemide (Demadex -) 20 mg PO DAILY [facility] Last Admin: 03/07/20 10:03 Dose: 20 mg Documented by: Umeclidinium/Vilanterol (Anoro Ellipta 62.5-25 Mcg Inh) 1 puff IH DAILY [facility] Last Admin: 03/07/20 10:06 Dose: 1 puff Documented by: - Objective Vital Signs: Vital Signs Temperature 97.7 F 03/07/20 18:00 Pulse Rate 76 03/07/20 18:00 Respiratory Rate 18 03/07/20 18:00 Blood Pressure 161/75 03/07/20 18:00 O2 Sat by Pulse Oximetry (%) 98 03/07/20 15:00 Constitutional: Yes: No Distress, Calm Cardiovascular: Yes: Regular Rate and Rhythm Respiratory: Yes: Regular Gastrointestinal: Yes: Normal Bowel Sounds, Soft Genitourinary: Yes: Aguilar Present, Hematuria Integumentary: Yes: WNL Neurological: Yes: Alert, Oriented Labs: CBC, BMP 03/07/20 09:20 03/07/20 09:20 INR, PTT INR 1.20 (0.83-1.09) H 03/03/20 21:00 Laboratory Results - last 24 hr 03/06/20 03/07/20 03/07/20 23:00 09:20 09:20 WBC 7.8 RBC 3.77 L Hgb 10.3 L Hct 31.4 L MCV 83.4 MCH 27.2 MCHC 32.6 RDW 15.7 Plt Count 246 D MPV 8.1 Absolute Neuts (auto) 6.1 Neutrophils % 78.4 D Lymphocytes % 13.1 D Monocytes % 6.9 Eosinophils % 1.1 Basophils % 0.5 Nucleated RBC % 0 Sodium 139 Potassium 3.1 L Chloride 101 Carbon Dioxide 28 Anion Gap 10 BUN 20.1 H Creatinine 1.3 Est GFR (CKD-EPI)AfAm 61.86 Est GFR (CKD-EPI)NonAf 53.37 Random Glucose 246 H Calcium 8.6 Blood Type A POSITIVE Antibody Screen Negative Microbiology 03/03/20 21:00 Blood - Peripheral Venous Blood Culture - Preliminary NO GROWTH OBTAINED AFTER 72 HOURS, INCUBATION TO CONTINUE FOR 2 DAYS. 03/03/20 21:00 Blood - Peripheral Venous Blood Culture - Preliminary NO GROWTH OBTAINED AFTER 72 HOURS, INCUBATION TO CONTINUE FOR 2 DAYS. 03/03/20 21:00 Urine - Urine Clean Catch Urine Culture - Final Escherichia Coli Problem List - Problems (1) BILL (acute kidney injury) Code(s): N17.9 - ACUTE KIDNEY FAILURE, UNSPECIFIED (2) S/P TURP Code(s): Z90.79 - ACQUIRED ABSENCE OF OTHER GENITAL ORGAN(S) (3) Sepsis Code(s): A41.9 - SEPSIS, UNSPECIFIED ORGANISM Qualifiers: Sepsis type: sepsis due to unspecified organism Sepsis acute organ dysfunction status: unspecified Qualified Code(s): A41.9 - Sepsis, unspecified organism (4) UTI (urinary tract infection) Code(s): N39.0 - URINARY TRACT INFECTION, SITE NOT SPECIFIED Qualifiers: Urinary tract infection type: acute cystitis Hematuria presence: with hematuria Qualified Code(s): N30.01 - Acute cystitis with hematuria (5) BPH (benign prostatic hyperplasia) Code(s): N40.0 - BENIGN PROSTATIC HYPERPLASIA WITHOUT LOWER URINRY TRACT SYMP (6) HLD (hyperlipidemia) Code(s): E78.5 - HYPERLIPIDEMIA, UNSPECIFIED Qualifiers: Hyperlipidemia type: pure hypercholesterolemia Qualified Code(s): E78.00 - Pure hypercholesterolemia, unspecified; E78.0 - Pure hypercholesterolemia (7) Hypertensive heart disease Code(s): I11.9 - HYPERTENSIVE HEART DISEASE WITHOUT HEART FAILURE Qualifiers: Heart failure presence: without heart failure Qualified Code(s): I11.9 - Hypertensive heart disease without heart failure (8) Obesity (BMI 30.0-34.9) Code(s): E66.9 - OBESITY, UNSPECIFIED (9) Sleep apnea Code(s): G47.30 - SLEEP APNEA, UNSPECIFIED Qualifiers: Sleep apnea type: obstructive Qualified Code(s): G47.33 - Obstructive sleep apnea (adult) (pediatric) Assessment/Plan Sepsis Complicated UTI +hematuria/urinary retention - aguilar reinserted s/p TURP BILL BPH CAD COPD Hx of COVID-19 -- Urine Cx +E. coli, continue Ceftriaxone. Pt without rash/adverse reaction. -- Urology following -- renal function improved -- blood cultures neg so far -- continue monitor temps/vitals -currently stable/afebrile
[2020-03-07] MEDS: ATORVASTATIN CA 80 MG TABLET (FP) PO SCH (22:45)
[2020-03-08] MEDS ORDERED: cefTRIAXone SODIUM 1 GM VIAL ONE (00:11)
[2020-03-08] MEDS ORDERED: DEXTROSE 5%-WATER - 50 ML IVPB ONE (00:11)
[2020-03-08] MEDS: CEFTRIAXONE 1 GM in DEXTROSE 5%-WATER - 50 ML IVPB SCH (00:24)
[2020-03-08] MEDS: ACETAMINOPHEN 325 MG TABLET (FP) PO PRN ×3 (05:05→22:25)
[2020-03-08] MEDS ORDERED: ALPRAZolam 1 MG TABLET PO SCH (06:00)
[2020-03-08 09:10] LABS: BASO % 0.8 % (0-2.0); EOS % 5.2 % (0-4.5); HEMATOCRIT 31.8 % (35.4-49); HEMOGLOBIN 10.4 GM/dL (11.7-16.9); LYMPH % 20.3 % (8-40); MCH 27.5 pg (25.7-33.7); MCHC 32.8 g/dl (32.0-35.9); MEAN CELL VOLUME 83.9 fl (80-96); MONO % 7.4 % (3.8-10.2); NEUT % 66.3 % (42.8-82.8); PLATELET COUNT 252 K/MM3 (134-434); RBC 3.78 M/mm3 (4.00-5.60); WHITE BLOOD COUNT 7.5 K/mm3 (4.0-10.0)
[2020-03-08 09:17] LABS: BLOOD UREA NITROGEN 21.4 mg/dL (7-18); CALCIUM 8.8 mg/dL (8.5-10.1); CREATININE 1.2 mg/dL (0.55-1.3)
[2020-03-08] MEDS ORDERED: PT OWN MED DRAWER 7, Y5N ONE (09:37)
--- NOTE | 2020-03-08 09:54 | PN ---
Progress Note, Physician History of Present Illness: Dove catheter d/jose pending voiding trial, denies any chest pain or dyspnea, afebrile. - Current Medication List Current Medications: Active Medications Acetaminophen (Tylenol -) 650 mg PO Q6H PRN PRN Reason: FEVER Last Admin: 03/08/20 05:05 Dose: 650 mg Documented by: Albuterol Sulfate (Ventolin Hfa Inhaler -) 2 puff IH Q6H PRN PRN Reason: SHORTNESS OF BREATH Amlodipine Besylate (Norvasc -) 10 mg PO DAILY [facility] Last Admin: 03/07/20 10:03 Dose: 10 mg Documented by: Aspirin (Asa -) 81 mg PO DAILY [facility] Last Admin: 03/06/20 09:43 Dose: 81 mg Documented by: Atorvastatin Calcium (Lipitor -) 80 mg PO HS [facility] Last Admin: 03/07/20 22:45 Dose: 80 mg Documented by: Carvedilol (Coreg -) 25 mg PO BID [facility] Last Admin: 03/07/20 22:37 Dose: 25 mg Documented by: Clopidogrel Bisulfate (Plavix -) 75 mg PO DAILY [facility] Last Admin: 03/06/20 09:39 Dose: 75 mg Documented by: Enoxaparin Sodium (Lovenox -) 30 mg SQ DAILY [facility] Last Admin: 03/06/20 09:49 Dose: 30 mg Documented by: Gabapentin (Neurontin -) 400 mg PO Q12H PRN PRN Reason: PAIN Ceftriaxone Sodium 1 gm/ (Dextrose) 50 mls @ 100 mls/hr IVPB DAILY@0000 [facility]; Protocol Last Admin: 03/08/20 00:24 Dose: 100 mls/hr Documented by: Losartan Potassium (Cozaar -) 50 mg PO DAILY [facility] Potassium Chloride (K-Dur -) 40 meq PO DAILY [facility] Last Admin: 03/07/20 10:02 Dose: 40 meq Documented by: Tamsulosin HCl (Flomax -) 0.8 mg PO DAILY [facility] Last Admin: 03/07/20 10:02 Dose: 0.8 mg Documented by: Torsemide (Demadex -) 20 mg PO DAILY [facility] Last Admin: 03/07/20 10:03 Dose: 20 mg Documented by: Umeclidinium/Vilanterol (Anoro Ellipta 62.5-25 Mcg Inh) 1 puff IH DAILY [facility] Last Admin: 03/07/20 10:06 Dose: 1 puff Documented by: - Objective Vital Signs: Vital Signs Temperature 98.0 F 03/08/20 05:24 Pulse Rate 71 03/08/20 05:24 Respiratory Rate 18 03/08/20 05:24 Blood Pressure 142/57 L 03/08/20 05:24 O2 Sat by Pulse Oximetry (%) 96 03/08/20 05:24 Constitutional: Yes: No Distress, Calm Neck: Yes: Supple Cardiovascular: Yes: Regular Rate and Rhythm Respiratory: Yes: Regular, CTA Bilaterally Gastrointestinal: Yes: Normal Bowel Sounds, Soft Edema: No Labs: CBC, BMP 03/08/20 08:35 03/08/20 08:35 INR, PTT INR 1.20 (0.83-1.09) H 03/03/20 21:00 Problem List - Problems (1) [id number] kidney injury Code(s): N17.9 - ACUTE KIDNEY FAILURE, UNSPECIFIED; N18.9 - CHRONIC KIDNEY DISEASE, UNSPECIFIED Qualifiers: Chronic kidney disease stage: stage 2 (mild) (2) BILL (acute kidney injury) Code(s): N17.9 - ACUTE KIDNEY FAILURE, UNSPECIFIED (3) S/P TURP Code(s): Z90.79 - ACQUIRED ABSENCE OF OTHER GENITAL ORGAN(S) (4) Sepsis Code(s): A41.9 - SEPSIS, UNSPECIFIED ORGANISM Qualifiers: Sepsis type: sepsis due to unspecified organism Sepsis acute organ dysfunction status: unspecified Qualified Code(s): A41.9 - Sepsis, unspecified organism (5) UTI (urinary tract infection) Code(s): N39.0 - URINARY TRACT INFECTION, SITE NOT SPECIFIED Qualifiers: Urinary tract infection type: acute cystitis Hematuria presence: with hematuria Qualified Code(s): N30.01 - Acute cystitis with hematuria (6) Coronary artery disease Code(s): I25.10 - ATHSCL HEART DISEASE OF [place] CORONARY ARTERY W/O ANG PCTRS Qualifiers: Coronary Disease-Associated Artery/Lesion type: [place] artery [place] vs. transplanted heart: [place] heart Associated angina: without angina Qualified Code(s): I25.10 - Atherosclerotic heart disease of [place] coronary artery without angina pectoris (7) HLD (hyperlipidemia) Code(s): E78.5 - HYPERLIPIDEMIA, UNSPECIFIED Qualifiers: Hyperlipidemia type: pure hypercholesterolemia Qualified Code(s): E78.00 - Pure hypercholesterolemia, unspecified; E78.0 - Pure hypercholesterolemia (8) Hypertensive heart disease Code(s): I11.9 - HYPERTENSIVE HEART DISEASE WITHOUT HEART FAILURE Qualifiers: Heart failure presence: without heart failure Qualified Code(s): I11.9 - Hypertensive heart disease without heart failure (9) Presence of drug-eluting stent in right coronary artery Code(s): Z95.5 - PRESENCE OF CORONARY ANGIOPLASTY IMPLANT AND GRAFT (10) Sleep apnea Code(s): G47.30 - SLEEP APNEA, UNSPECIFIED Qualifiers: Sleep apnea type: obstructive Qualified Code(s): G47.33 - Obstructive sleep apnea (adult) (pediatric) Assessment/Plan 05/20/2018 Nuc stress: Mod inferior ischemia with small infarct, LVEF 52% 05/20/2018 Echo: Normal LV size with mod cLVH, LVEF 55-60%, mild LAE, mod MR, tr TR 05/21/[address] [facility] for [place]/NSTEMI and moderate inferior ischemia. 2 vessel CAD 90-95% ostial LCx-OM (medium sized vessel) left alone, 90-95% prox RCA which was treated with implant Resolute [place] 4.0x18 mm FISH post- dilated with NC 4.5x15 balloon @ 14 SARAHY, normal LV fxn LVEF 65-70% with elevated LVEDP 27 mmHg, no aortic stenosis. Mynx deployed right [employer] access site, no complications. Recommend optimal medical therapy for secondary prevention of cardiovascular disease, consider PCI of LCx-OM if remains symptomatic despite meds, patient is candidate for cardiac rehab. 1. Sepsis source post TURP 2. COPD, pulm fibrosis 3. CAD s/p FISH RCA 4. Diastolic dysfunction 5. Type 2 DM 6. BILL (prerenal) with proteinuria improved 7. OSAS on cpap 8. Hypertensive heart disease 9. Hyperlipidemia 10 H/o PE PLAN: 1. Continue ASA 81 qd, Plavix 71 qd 2. Continue Lipitor 80 qd 3. Continue Carvedilol 25 bid 4. Continue Cozaar 50 qd with close monitoring of renal function, dose titration as needed 5. Continue Norvasc 10 qd 6. Continue Demadex 10 qd and K-Dur supplementation, correction of potassium level 7. Antibiotic course as per ID team 8. BD, O2 as needed, cpap nightly
[2020-03-08] MEDS: POTASSIUM CHLORIDE TABS 20 MEQ TABLET.ER (FP) PO SCH (10:12)
[2020-03-08] MEDS: amLODIPine BESYLATE 10 MG TABLET (FP) PO SCH (10:12)
[2020-03-08] MEDS: TORSEMIDE 20 MG TABLET (FP) PO SCH (10:12)
[2020-03-08] MEDS: CARVEDILOL 25 MG TABLET (FP) PO SCH ×2 (10:12→21:10)
[2020-03-08] MEDS: TAMSULOSIN HCL 0.4 MG CAP PO SCH (10:13)
[2020-03-08] MEDS: UMECLIDINIUM/VILANTEROL (ANORO) 62.5/25 MCG INHALER IH SCH (10:14)
[2020-03-08] MEDS: LOSARTAN POTASSIUM 25 MG TABLET PO SCH (10:14)
--- NOTE | 2020-03-08 12:24 | PN ---
Progress Note, Physician History of Present Illness: Pt is having Urinary retention Pt is off aguilar Pt passed Blood clots Pt is voiding well Post Voidal is Normal No Fever No SOB - Current Medication List Current Medications: Active Medications Acetaminophen (Tylenol -) 650 mg PO Q6H PRN PRN Reason: FEVER Last Admin: 03/08/20 10:12 Dose: 650 mg Documented by: Albuterol Sulfate (Ventolin Hfa Inhaler -) 2 puff IH Q6H PRN PRN Reason: SHORTNESS OF BREATH Amlodipine Besylate (Norvasc -) 10 mg PO DAILY [facility] Last Admin: 03/08/20 10:12 Dose: 10 mg Documented by: Aspirin (Asa -) 81 mg PO DAILY [facility] Last Admin: 03/06/20 09:43 Dose: 81 mg Documented by: Atorvastatin Calcium (Lipitor -) 80 mg PO HS [facility] Last Admin: 03/07/20 22:45 Dose: 80 mg Documented by: Carvedilol (Coreg -) 25 mg PO BID [facility] Last Admin: 03/08/20 10:12 Dose: 25 mg Documented by: Clopidogrel Bisulfate (Plavix -) 75 mg PO DAILY [facility] Last Admin: 03/06/20 09:39 Dose: 75 mg Documented by: Enoxaparin Sodium (Lovenox -) 30 mg SQ DAILY [facility] Last Admin: 03/06/20 09:49 Dose: 30 mg Documented by: Gabapentin (Neurontin -) 400 mg PO Q12H PRN PRN Reason: PAIN Last Admin: 03/08/20 10:12 Dose: 400 mg Documented by: Ceftriaxone Sodium 1 gm/ (Dextrose) 50 mls @ 100 mls/hr IVPB DAILY@0000 [facility]; Protocol Last Admin: 03/08/20 00:24 Dose: 100 mls/hr Documented by: Losartan Potassium (Cozaar -) 50 mg PO DAILY [facility] Last Admin: 03/08/20 10:14 Dose: 50 mg Documented by: Potassium Chloride (K-Dur -) 40 meq PO DAILY [facility] Last Admin: 03/08/20 10:12 Dose: 40 meq Documented by: Tamsulosin HCl (Flomax -) 0.8 mg PO DAILY [facility] Last Admin: 03/08/20 10:13 Dose: 0.8 mg Documented by: Torsemide (Demadex -) 20 mg PO DAILY [facility] Last Admin: 07/20/20 10:12 Dose: 20 mg Documented by: Umeclidinium/Vilanterol (Anoro Ellipta 62.5-25 Mcg Inh) 1 puff IH DAILY [facility] Last Admin: 03/08/20 10:14 Dose: 1 puff Documented by: - Objective Vital Signs: Vital Signs Temperature 97.9 F 03/08/20 09:00 Pulse Rate 76 03/08/20 09:00 Respiratory Rate 18 03/08/20 09:00 Blood Pressure 150/55 L 03/08/20 09:00 O2 Sat by Pulse Oximetry (%) 95 03/08/20 10:02 Constitutional: Yes: Calm Eyes: Yes: Conjunctiva Clear, EOM Intact HENT: Yes: Atraumatic, Normocephalic Neck: Yes: Supple, Trachea Midline Cardiovascular: Yes: Regular Rate and Rhythm, S1, S2 Respiratory: Yes: Regular, CTA Bilaterally Edema: No Peripheral Pulses WNL: Yes Labs: CBC, BMP 03/08/20 08:35 03/08/20 08:35 INR, PTT INR 1.20 (0.83-1.09) H 03/03/20 21:00 Problem List - Problems (1) S/P TURP Code(s): Z90.79 - ACQUIRED ABSENCE OF OTHER GENITAL ORGAN(S) (2) Sepsis Code(s): A41.9 - SEPSIS, UNSPECIFIED ORGANISM Qualifiers: Sepsis type: sepsis due to unspecified organism Sepsis acute organ dysfu nction status: unspecified Qualified Code(s): A41.9 - Sepsis, unspecified organism (3) UTI (urinary tract infection) Code(s): N39.0 - URINARY TRACT INFECTION, SITE NOT SPECIFIED Qualifiers: Urinary tract infection type: acute cystitis Hematuria presence: with hematuria Qualified Code(s): N30.01 - Acute cystitis with hematuria (4) Acute OK, inferior wall, initial episode of care Code(s): I21.19 - STEMI INVOLVING OTH CORONARY ARTERY OF INFERIOR WALL (5) Acute exacerbation of chronic obstructive pulmonary disease (COPD) Code(s): J44.1 - CHRONIC OBSTRUCTIVE PULMONARY DISEASE W (ACUTE) EXACERBATION (6) COPD (chronic obstructive pulmonary disease) with acute bronchitis Code(s): J44.0 - CHR OBSTRUCTIVE PULMON DISEASE WITH (ACUTE) LOWER RESP INFCT; J20.9 - ACUTE BRONCHITIS, UNSPECIFIED (7) Calcaneal spur, right foot Code(s): M77.31 - CALCANEAL SPUR, RIGHT FOOT (8) Coronary artery disease Code(s): I25.10 - ATHSCL HEART DISEASE OF [place] CORONARY ARTERY W/O ANG PCTRS Qualifiers: Coronary Disease-Associated Artery/Lesion type: [place] artery [place] vs. transplanted heart: [place] heart Associated angina: without angina Qualified Code(s): I25.10 - Atherosclerotic heart disease of [place] coronary artery wi thout angina pectoris (9) HLD (hyperlipidemia) Code(s): E78.5 - HYPERLIPIDEMIA, UNSPECIFIED Qualifiers: Hyperlipidemia type: pure hypercholesterolemia Qualified Code(s): E78.00 - Pure hypercholesterolemia, unspecified; E78.0 - Pure hypercholesterolemia (10) Hypercholesterolemia Code(s): E78.00 - PURE HYPERCHOLESTEROLEMIA, UNSPECIFIED (11) Hypokalemia Code(s): E87.6 - HYPOKALEMIA (12) Hypoxia Code(s): R09.02 - HYPOXEMIA (13) Lumbar radiculopathy, chronic Code(s): M54.16 - RADICULOPATHY, LUMBAR REGION (14) NSTEMI (non-ST elevated myocardial infarction) Code(s): I21.4 - NON-ST ELEVATION (NSTEMI) MYOCARDIAL INFARCTION (15) Obesity (BMI 30.0-34.9) Code(s): E66.9 - OBESITY, UNSPECIFIED (16) Presence of drug-eluting stent in right coronary artery Code(s): Z95.5 - PRESENCE OF CORONARY ANGIOPLASTY IMPLANT AND GRAFT (17) Sciatica Code(s): M54.30 - SCIATICA, UNSPECIFIED SIDE Qualifiers: Laterality: right Qualified Code(s): M54.31 - Sciatica, right side (18) Shingles (herpes zoster) polyneuropathy Code(s): B02.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 (19) Sleep apnea Code(s): G47.30 - SLEEP APNEA, UNSPECIFIED Qualifiers: Sleep apnea type: obstructive Qualified Code(s): G47.33 - Obstructive sleep apnea (adult) (pediatric) (20) Syncope Code(s): R55 - SYNCOPE AND COLLAPSE Assessment/Plan (1) S/P TURP Code(s): Z90.79 - ACQUIRED ABSENCE OF OTHER GENITAL ORGAN(S) (2) Sepsis Code(s): A41.9 - SEPSIS, UNSPECIFIED ORGANISM Qualifiers: Sepsis type: sepsis due to unspecified organism Sepsis acute organ dysfunction status: unspecified Qualified Code(s): A41.9 - Sepsis, unspecified organism (3) UTI (urinary tract infection) Code(s): N39.0 - URINARY TRACT INFECTION, SITE NOT SPECIFIED Qualifiers: Urinary tract infection type: acute cystitis Hematuria presence: with hematuria Qualified Code(s): N30.01 - Acute cystitis with hematuria (4) H/O Acute OK, inferior wall OK S/P Stent Code(s): I21.19 - STEMI INVOLVING OTH CORONARY ARTERY OF INFERIOR WALL (5) Acute exacerbation of chronic obstructive pulmonary disease (COPD) Code(s): J44.1 - CHRONIC OBSTRUCTIVE PULMONARY DISEASE W (ACUTE) EXACERBATION (6) COPD (chronic obstructive pulmonary disease) with acute bronchitis Code(s): J44.0 - CHR OBSTRUCTIVE PULMON DISEASE WITH (ACUTE) LOWER RESP INFCT; J20.9 - ACUTE BRONCHITIS, UNSPECIFIED (7) Calcaneal spur, right foot Code(s): M77.31 - CALCANEAL SPUR, RIGHT FOOT (8) Coronary artery disease Code(s): I25.10 - ATHSCL HEART DISEASE OF [place] CORONARY ARTERY W/O ANG PCTRS Qualifiers: Coronary Disease-Associated Artery/Lesion type: [place] artery [place] vs. transplanted heart: [place] heart Associated angina: without angina Qualified Code(s): I25.10 - Atherosclerotic heart disease of [place] coronary artery without angina pectoris (9) HLD (hyperlipidemia) Code(s): E78.5 - HYPERLIPIDEMIA, UNSPECIFIED Qualifiers: Hyperlipidemia type: pure hypercholesterolemia Qualified Code(s): E78.00 - Pure hypercholesterolemia, unspecified; E78.0 - Pure hypercholesterolemia (10) Hypercholesterolemia Code(s): E78.00 - PURE HYPERCHOLESTEROLEMIA, UNSPECIFIED (11) Hypokalemia Code(s): E87.6 - HYPOKALEMIA (12) Hypoxia Code(s): R09.02 - HYPOXEMIA (13) Lumbar radiculopathy, chronic Code(s): M54.16 - RADICULOPATHY, LUMBAR REGION (14) NSTEMI (non-ST elevated myocardial infarction) Code(s): I21.4 - NON-ST ELEVATION (NSTEMI) MYOCARDIAL INFARCTION (15) Obesity (BMI 30.0-34.9) Code(s): E66.9 - OBESITY, UNSPECIFIED (16) Presence of drug-eluting stent in right coronary artery Code(s): Z95.5 - PRESENCE OF CORONARY ANGIOPLASTY IMPLANT AND GRAFT (17) Sciatica Code(s): M54.30 - SCIATICA, UNSPECIFIED SIDE Qualifiers: Laterality: right Qualified Code(s): M54.31 - Sciatica, right side (18) Shingles (herpes zoster) polyneuropathy Code(s): B02.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 (19) Sleep apnea : at Home BIPAP Pt refused here Code(s): G47.30 - SLEEP APNEA, UNSPECIFIED Qualifiers: Sleep apnea type: obstructive Qualified Code(s): G47.33 - Obstructive sleep apnea (adult) (pediatric) (20) Syncope Code(s): R55 - SYNCOPE AND COLLAPSE Pt having Urinary retention Pt off Aguilar Voiding well ASA/Plavix/Loenox on hold for 3 days Mild hematuria still seen Hemodynamically stable Pt Hypokalemia being corrected. sepsis better On IV antibiuotics
--- NOTE | 2020-03-08 13:28 | PN ---
Progress Note, Physician History of Present Illness: Pt seen and examined at bedside. He is awake and alert. He is passing blood clots. - Current Medication List Current Medications: Active Medications Acetaminophen (Tylenol -) 650 mg PO Q6H PRN PRN Reason: FEVER Last Admin: 03/08/20 10:12 Dose: 650 mg Documented by: Albuterol Sulfate (Ventolin Hfa Inhaler -) 2 puff IH Q6H PRN PRN Reason: SHORTNESS OF BREATH Amlodipine Besylate (Norvasc -) 10 mg PO DAILY [facility] Last Admin: 03/08/20 10:12 Dose: 10 mg Documented by: Aspirin (Asa -) 81 mg PO DAILY [facility] Last Admin: 03/06/20 09:43 Dose: 81 mg Documented by: Atorvastatin Calcium (Lipitor -) 80 mg PO HS [facility] Last Admin: 03/07/20 22:45 Dose: 80 mg Documented by: Carvedilol (Coreg -) 25 mg PO BID [facility] Last Admin: 03/08/20 10:12 Dose: 25 mg Documented by: Clopidogrel Bisulfate (Plavix -) 75 mg PO DAILY [facility] Last Admin: 03/06/20 09:39 Dose: 75 mg Documented by: Enoxaparin Sodium (Lovenox -) 30 mg SQ DAILY [facility] Last Admin: 03/06/20 09:49 Dose: 30 mg Documented by: Gabapentin (Neurontin -) 400 mg PO Q12H PRN PRN Reason: PAIN Last Admin: 03/08/20 10:12 Dose: 400 mg Documented by: Ceftriaxone Sodium 1 gm/ (Dextrose) 50 mls @ 100 mls/hr IVPB DAILY@0000 [facility]; Protocol Last Admin: 03/08/20 00:24 Dose: 100 mls/hr Documented by: Losartan Potassium (Cozaar -) 50 mg PO DAILY [facility] Last Admin: 03/08/20 10:14 Dose: 50 mg Documented by: Potassium Chloride (K-Dur -) 40 meq PO DAILY [facility] Last Admin: 03/08/20 10:12 Dose: 40 meq Documented by: Tamsulosin HCl (Flomax -) 0.8 mg PO DAILY [facility] Last Admin: 03/08/20 10:13 Dose: 0.8 mg Documented by: Torsemide (Demadex -) 20 mg PO DAILY [facility] Last Admin: 03/08/20 10:12 Dose: 20 mg Documented by: Umeclidinium/Vilanterol (Anoro Ellipta 62.5-25 Mcg Inh) 1 puff IH DAILY [facility] Last Admin: 03/08/20 10:14 Dose: 1 puff Documented by: - Objective Vital Signs: Vital Signs Temperature 97.9 F 03/08/20 09:00 Pulse Rate 76 03/08/20 09:00 Respiratory Rate 18 03/08/20 09:00 Blood Pressure 150/55 L 03/08/20 09:00 O2 Sat by Pulse Oximetry (%) 95 03/08/20 10:02 Constitutional: Yes: Calm Eyes: Yes: Conjunctiva Clear HENT: Yes: Atraumatic Neck: Yes: Supple Cardiovascular: Yes: S1, S2 Respiratory: Yes: CTA Bilaterally Gastrointestinal: Yes: Soft Genitourinary: Yes: Hematuria, Incontinence Musculoskeletal: Yes: WNL Edema: No Neurological: Yes: Oriented Psychiatric: Yes: Oriented Labs: CBC, BMP 03/08/20 08:35 03/08/20 08:35 INR, PTT INR 1.20 (0.83-1.09) H 03/03/20 21:00 Problem List - Problems (1) BILL (acute kidney injury) Code(s): N17.9 - ACUTE KIDNEY FAILURE, UNSPECIFIED (2) S/P TURP Code(s): Z90.79 - ACQUIRED ABSENCE OF OTHER GENITAL ORGAN(S) (3) Sepsis Code(s): A41.9 - SEPSIS, UNSPECIFIED ORGANISM Qualifiers: Sepsis type: sepsis due to unspecified organism Sepsis acute organ dysfunction status: unspecified Qualified Code(s): A41.9 - Sepsis, unspecified organism (4) UTI (urinary tract infection) Code(s): N39.0 - URINARY TRACT INFECTION, SITE NOT SPECIFIED Qualifiers: Urinary tract infection type: acute cystitis Hematuria presence: with hematuria Qualified Code(s): N30.01 - Acute cystitis with hematuria Assessment/Plan Current Medications Generic Name Dose Route Start Last Admin Trade Name Freq PRN Reason Stop Dose Admin Acetaminophen 650 mg 03/03/20 23:37 03/08/20 10:12 Tylenol - PO 650 mg Q6H PRN Administration FEVER Albuterol Sulfate 2 puff 03/03/20 23:30 Ventolin Hfa Inhaler - IH Q6H PRN SHORTNESS OF BREATH Amlodipine Besylate 10 mg 03/04/20 10:00 03/08/20 10:12 Norvasc - PO 10 mg DAILY [facility] Administration Aspirin 81 mg 03/04/20 10:00 03/06/20 09:43 Asa - PO 81 mg DAILY [facility] Administration Atorvastatin Calcium 80 mg 03/04/20 22:00 03/07/20 22:45 Lipitor - PO 80 mg HS [facility] Administration Carvedilol 25 mg 03/04/20 10:00 03/08/20 10:12 Coreg - PO 25 mg BID [facility] Administration Clopidogrel Bisulfate 75 mg 03/04/20 10:00 03/06/20 09:39 Plavix - PO 75 mg DAILY [facility] Administration Enoxaparin Sodium 30 mg 03/04/20 10:00 03/06/20 09:49 Lovenox - SQ 30 mg DAILY [facility] Administration Gabapentin 400 mg 03/03/20 23:30 03/08/20 10:12 Neurontin - PO 400 mg Q12H PRN Administration PAIN Ceftriaxone Sodium 1 gm/ 50 mls @ 100 mls/hr 03/07/20 01:00 03/08/20 00:24 Dextrose IVPB 100 mls/hr DAILY@0000 [facility] Administration Protocol Losartan Potassium 50 mg 03/08/20 10:00 03/08/20 10:14 Cozaar - PO 50 mg DAILY [facility] Administration Potassium Chloride 40 meq 03/06/20 10:00 03/08/20 10:12 K-Dur - PO 40 meq DAILY [facility] Administration Potassium Chloride 40 meq 03/08/20 13:25 Potassium Chloride Oral Liquid PO 03/08/20 13:26 ONCE ONE Tamsulosin HCl 0.8 mg 03/04/20 10:00 03/08/20 10:13 Flomax - PO 0.8 mg DAILY [facility] Administration Torsemide 20 mg 03/04/20 10:00 03/08/20 10:12 Demadex - PO 20 mg DAILY [facility] Administration Umeclidinium/Vilanterol 1 puff 03/04/20 10:00 03/08/20 10:14 Anoro Ellipta 62.5-25 Mcg Inh IH 1 puff DAILY [facility] Administration Impression 1. BILL 2. sepsis 3. hx PE 4. pulm fibrosis 5. s/p TURP 6. copd 7. cad 8. right renal simple cyst Plan - replace potassium - will give another dose - urology follow up - cont abx - right renal simple cyst
[2020-03-08] MEDS ORDERED: POTASSIUM CHLORIDE ORAL LIQUID 20 MEQ/15 ML PO ONE (13:45)
--- NOTE | 2020-03-08 13:52 | PN ---
Progress Note, Physician History of Present Illness: stable no new issues - Current Medication List Current Medications: Active Medications Acetaminophen (Tylenol -) 650 mg PO Q6H PRN PRN Reason: FEVER Last Admin: 03/08/20 10:12 Dose: 650 mg Documented by: Albuterol Sulfate (Ventolin Hfa Inhaler -) 2 puff IH Q6H PRN PRN Reason: SHORTNESS OF BREATH Amlodipine Besylate (Norvasc -) 10 mg PO DAILY [facility] Last Admin: 03/08/20 10:12 Dose: 10 mg Documented by: Aspirin (Asa -) 81 mg PO DAILY [facility] Last Admin: 03/06/20 09:43 Dose: 81 mg Documented by: Atorvastatin Calcium (Lipitor -) 80 mg PO HS [facility] Last Admin: 03/07/20 22:45 Dose: 80 mg Documented by: Carvedilol (Coreg -) 25 mg PO BID [facility] Last Admin: 03/08/20 10:12 Dose: 25 mg Documented by: Clopidogrel Bisulfate (Plavix -) 75 mg PO DAILY [facility] Last Admin: 03/06/20 09:39 Dose: 75 mg Documented by: Enoxaparin Sodium (Lovenox -) 30 mg SQ DAILY [facility] Last Admin: 03/06/20 09:49 Dose: 30 mg Documented by: Gabapentin (Neurontin -) 400 mg PO Q12H PRN PRN Reason: PAIN Last Admin: 03/08/20 10:12 Dose: 400 mg Documented by: Ceftriaxone Sodium 1 gm/ (Dextrose) 50 mls @ 100 mls/hr IVPB DAILY@0000 [facility]; Protocol Last Admin: 03/08/20 00:24 Dose: 100 mls/hr Documented by: Losartan Potassium (Cozaar -) 50 mg PO DAILY [facility] Last Admin: 03/08/20 10:14 Dose: 50 mg Documented by: Potassium Chloride (K-Dur -) 40 meq PO DAILY [facility] Last Admin: 03/08/20 10:12 Dose: 40 meq Documented by: Tamsulosin HCl (Flomax -) 0.8 mg PO DAILY [facility] Last Admin: 03/08/20 10:13 Dose: 0.8 mg Documented by: Torsemide (Demadex -) 20 mg PO DAILY [facility] Last Admin: 03/08/20 10:12 Dose: 20 mg Documented by: Umeclidinium/Vilanterol (Anoro Ellipta 62.5-25 Mcg Inh) 1 puff IH DAILY [facility] Last Admin: 03/08/20 10:14 Dose: 1 puff Documented by: - Objective Vital Signs: Vital Signs Temperature 97.9 F 03/08/20 09:00 Pulse Rate 76 03/08/20 09:00 Respiratory Rate 18 03/08/20 09:00 Blood Pressure 150/55 L 03/08/20 09:00 O2 Sat by Pulse Oximetry (%) 95 03/08/20 10:02 Constitutional: Yes: No Distress, Calm Cardiovascular: Yes: S1, S2 Respiratory: Yes: Regular, CTA Bilaterally Gastrointestinal: Yes: Normal Bowel Sounds, Soft Genitourinary: Yes: Aguilar Present Musculoskeletal: Yes: WNL Extremities: Yes: WNL Neurological: Yes: Alert, Oriented Psychiatric: Yes: Alert, Oriented Labs: CBC, BMP 03/08/20 08:35 03/08/20 08:35 INR, PTT INR 1.20 (0.83-1.09) H 03/03/20 21:00 Assessment/Plan Problem List - Problems (1) BILL (acute kidney injury) Code(s): N17.9 - ACUTE KIDNEY FAILURE, UNSPECIFIED (2) S/P TURP Code(s): Z90.79 - ACQUIRED ABSENCE OF OTHER GENITAL ORGAN(S) (3) Sepsis Code(s): A41.9 - SEPSIS, UNSPECIFIED ORGANISM Qualifiers: Sepsis type: sepsis due to unspecified organism Sepsis acute organ dysfunction status: unspecified Qualified Code(s): A41.9 - Sepsis, unspecified organism (4) UTI (urinary tract infection) Code(s): N39.0 - URINARY TRACT INFECTION, SITE NOT SPECIFIED Qualifiers: Urinary tract infection type: acute cystitis Hematuria presence: with hematuria Qualified Code(s): N30.01 - Acute cystitis with hematuria (5) BPH (benign prostatic hyperplasia) Code(s): N40.0 - BENIGN PROSTATIC HYPERPLASIA WITHOUT LOWER URINRY TRACT SYMP (6) HLD (hyperlipidemia) Code(s): E78.5 - HYPERLIPIDEMIA, UNSPECIFIED Qualifiers: Hyperlipidemia type: pure hypercholesterolemia Qualified Code(s): E78.00 - Pure hypercholesterolemia, unspecified; E78.0 - Pure hypercholesterolemia (7) Hypertensive heart disease Code(s): I11.9 - HYPERTENSIVE HEART DISEASE WITHOUT HEART FAILURE Qualifiers: Heart failure presence: without heart failure Qualified Code(s): I11.9 - Hypertensive heart disease without heart failure (8) Obesity (BMI 30.0-34.9) Code(s): E66.9 - OBESITY, UNSPECIFIED (9) Sleep apnea Code(s): G47.30 - SLEEP APNEA, UNSPECIFIED Qualifiers: Sleep apnea type: obstructive Qualified Code(s): G47.33 - Obstructive sleep apnea (adult) (pediatric) Assessment/Plan Sepsis Complicated UTI +hematuria/urinary retention - aguilar reinserted s/p TURP BILL BPH CAD COPD Hx of COVID-19 -- Urine Cx +E. coli, continue Ceftriaxone. Pt without rash/adverse reaction. continue current mgmt
[2020-03-08] MEDS: ATORVASTATIN CA 80 MG TABLET (FP) PO SCH (21:10)
[2020-03-08] MEDS ORDERED: ZOLPIDEM TARTRATE 5 MG TABLET PO PRN (22:00)
[2020-03-09] MEDS ORDERED: cefTRIAXone SODIUM 1 GM VIAL ONE (00:15)
[2020-03-09] MEDS ORDERED: DEXTROSE 5%-WATER - 50 ML IVPB ONE (00:16)
[2020-03-09] MEDS: CEFTRIAXONE 1 GM in DEXTROSE 5%-WATER - 50 ML IVPB SCH (00:24)
[2020-03-09] MEDS ORDERED: IBUPROFEN 400 MG TABLET (FP) PO ONE (01:11)
[2020-03-09] MEDS: oxyCODONE HCL 5 MG TABLET PO PRN ×3 (03:58→18:44)
[2020-03-09] MEDS: ACETAMINOPHEN 325 MG TABLET (FP) PO PRN ×3 (03:59→18:46)
[2020-03-09] MEDS: ACETAMINOPHEN 325 MG TABLET (FP) PO SCH ×3 (08:36→22:00)
[2020-03-09] MEDS ORDERED: SODIUM CHLORIDE 0.45%/POT 20 MEQ/1,000 ML INFUS.BAG IV SCH ×2 (09:30→22:34)
[2020-03-09 09:38] LABS: HEMATOCRIT 23.3 % (35.4-49); HEMOGLOBIN 7.5 GM/dL (11.7-16.9); MCH 27.2 pg (25.7-33.7); MCHC 32.4 g/dl (32.0-35.9); MEAN CELL VOLUME 84.1 fl (80-96); MEAN PLT VOLUME 8.1 fl (7.5-11.1); PLATELET COUNT 321 K/MM3 (134-434); RBC 2.77 M/mm3 (4.00-5.60); RDW 15.8 % (11.9-15.9)
[2020-03-09] MEDS: ASPIRIN 81 MG CHEWABLE TABLETS PO SCH (09:48)
[2020-03-09] MEDS: CARVEDILOL 25 MG TABLET (FP) PO SCH ×2 (09:48→22:01)
[2020-03-09] MEDS: TORSEMIDE 20 MG TABLET (FP) PO SCH (09:49)
[2020-03-09] MEDS: CLOPIDOGREL BISULFATE 75 MG TABLET (FP) PO SCH (09:49)
[2020-03-09] MEDS: amLODIPine BESYLATE 10 MG TABLET (FP) PO SCH (09:49)
[2020-03-09] MEDS: ENOXAPARIN NA (PORCINE) 30 MG/0.3 ML DISP.SYRIN SQ SCH (09:49)
[2020-03-09] MEDS: LOSARTAN POTASSIUM 25 MG TABLET PO SCH (09:49)
[2020-03-09] MEDS ORDERED: LACTATED RINGERS SOLUTION 1,000 ML/1,000 ML INFUS.BAG IV STA (09:56)
[2020-03-09 10:08] LABS: ALBUMIN 2.8 g/dl (3.4-5.0); BILIRUBIN,TOTAL 0.6 mg/dL (0.2-1); BLOOD UREA NITROGEN 28.3 mg/dL (7-18); CALCIUM 8.1 mg/dL (8.5-10.1); CREATININE 1.5 mg/dL (0.55-1.3); POTASSIUM 3.7 mmol/L (3.5-5.1); TOT PROT 5.9 g/dl (6.4-8.2)
[2020-03-09] MEDS: POTASSIUM CHLORIDE TABS 20 MEQ TABLET.ER (FP) PO SCH (10:22)
[2020-03-09] MEDS: TAMSULOSIN HCL 0.4 MG CAP PO SCH (10:24)
--- NOTE | 2020-03-09 10:24 | CONSULT ---
Consultation: ICU Consult Note Requesting Provider: Dr. Arriaga Consult Request: We have been asked to medically evaluate this patient for hypotension and drop in hemoglobin / hematocrit. History of Present Illness: 74 y/o male admitted to [facility] for fever, chills, and generalized weakness three days post-op from TURP by Dr. Jj. Urine culture positive for e. Coli (R to Ampicillin, Augmentin, Bactrim, and Levofloxacin). Currently receiving Ceftria xone. Over the course of the hospitalization, the pt has undergone multiple aguilar catheter placements for CBI. Bedside RN reports multiple bloody clots have been expressed. This morning, the pt had single episode of hypotension without tachycardia or fever. The blood pressure improved after receiving 250cc LR bolus. Experiencing some lower abdominal discomfort, which is unchanged from previous days. The pt denies any chest pain, SOB, lightheadedness, or N/V. Medical Hx: - Hypertension - Hyperlipidemia - CAD s/p stent in 2018 at [facility] - COPD - hx of PE - Pulmonary fibrosis - BPH - S/p TURP [address] Jj Review of Systems: In addition to that documented in the HPI above, the additional ROS was obtained: Constitutional: Denies recent fevers or chills Head: Denies vision changes ENMT: Denies sore throat CV: Denies chest pain Resp: Denies SOB GI: Denies vomiting or diarrhea : Lower abdominal pain, blood and clots in aguilar MSK: Denies recent trauma Skin: Denies new rashes Neuro: Denies new weakness Heme: Denies easy bleeding OBJECTIVE: Lines: - PIV Drains: - Three way aguilar w/ CBI Supplemental Oxygen: Room Air Physical Exam: Constitutional: Well-developed, well-nourished elderly adult male in no acute distress or obvious discomfort. Found semi-fowlers on hospital bed. Alert and oriented x4. Answered all questions appropriately and completely. Speech was non-labored, non-pressured. Head: Normocephalic. No obvious external signs of trauma. Eyes: Sclerae white. Ears: Hearing grossly intact. Nose: No nasal discharge. Neck: Supple, trachea is midline. Cardiovascular / Chest: Regular rate. Peripheral pulses: radial pulses full. Respiratory: Breathing unlabored. Equal chest rise and fall. Speaking in multi- word responses without pausing. Gastrointestinal: abdomen is soft and non-distended. Mild discomfort in lower abdomen vs suprapubic region without rebound or guarding. Neuro: Alert and oriented. Moving all four extremities spontaneously. Skin: Warm and dry. Psych: Affect: appropriate. Mood: normal. Male : Aguilar catheter in place. ASSESSMENT / PLAN: 74 year old male admitted 6 days ago with fever and chills 3 days s/p TURP. Likely post-op infection w/ positive urine culture. Singular episode of hypotension w/o tachycardia or fever this morning that improved with small IVFB. Also with relative anemia. Neuro (& Psych): - A/o x4. No sedating medications. Cardiovascular: - Single episode of hypotension. Likely secondary to mild volume depletion. Resolved after IVFB. Would hold antihypertensives if hypotensive trend continues. Can continue with LR IVFB PRN. Pulm / Resp: - Stable on room air. Continue home COPD/ pulmonary fibrosis medications as prescribed. Genitourinary: - S/p TURP w/ blood and clots while on CBI. - Continue with urologys plan Hematologic: - Anemia. Would suggest a unit of PRBC with higher transfusion threshold given cardiac history. - Continue ASA and Plavix in conversation with pts outcome analyst. Stent placed 2018. Infectious Disease: - Post-op infection vs acute hemorrhagic cystitis. Continue with Ceftriaxone and any further ID recommendations. No clear indication to broaden coverage at this time. FEN: - BILL can attempt oral rehydration first - IVF: PRN bolus Dispo: This patient does not meet ICU admission criteria at this time. Please reach out if the pts condition changes, especially persistent hypotension, tachycardia, or a change in mental status. Case discussed with ICU attending, Dr. Ambrosio, who will continue to follow the pt. Please Microblog ICU Residents On- Duty with any questions. Edi Maguire M.D., PGY3 ICU Service Resident 09 March 2020 Visit type - Medication Review Med list reviewed for High Risk Meds patients 65 and older: Yes - Emergency Visit Emergency Visit: Yes ED Registration Date: 03/03/20 Care time: The patient presented to the Emergency Department on the above date and was hospitalized for further evaluation of their emergent condition. - New Patient This patient is new to me today: Yes Date on this admission: 03/09/20 - Critical Care Critical Care patient: Yes Total Critical Care Time (in minutes): 30 Critical Care Statement: The care of this patient involved high complexity decision making to prevent further life threatening deterioration of the patient's condition and/or to evaluate & treat vital organ system(s) failure or risk of failure.
[2020-03-09] MEDS: UMECLIDINIUM/VILANTEROL (ANORO) 62.5/25 MCG INHALER IH SCH (11:10)
--- NOTE | 2020-03-09 11:56 | PN ---
Progress Note, Physician Chief Complaint: Events noted Transient hypotension Clots noted on aguilar catheter History of Present Illness: Patient was seen and examined. Awake and alert. Chart was reviewed Denies chest pain, SOB or palpitations - Current Medication List Current Medications: Active Medications Acetaminophen (Tylenol -) 325 mg PO Q4H PRN PRN Reason: PAIN LEVEL 5-10 Stop: 03/12/20 03:59 Last Admin: 03/09/20 03:59 Dose: 325 mg Documented by: Acetaminophen (Tylenol -) 650 mg PO Q8H [facility] Last Admin: 03/09/20 08:36 Dose: Not Given Documented by: Albuterol Sulfate (Ventolin Hfa Inhaler -) 2 puff IH Q6H PRN PRN Reason: SHORTNESS OF BREATH Amlodipine Besylate (Norvasc -) 10 mg PO DAILY [facility] Last Admin: 03/09/20 09:49 Dose: Not Given Documented by: Aspirin (Asa -) 81 mg PO DAILY [facility] Last Admin: 03/09/20 09:48 Dose: Not Given Documented by: Atorvastatin Calcium (Lipitor -) 80 mg PO HS [facility] Last Admin: 03/08/20 21:10 Dose: 80 mg Documented by: Carvedilol (Coreg -) 25 mg PO BID [facility] Last Admin: 03/09/20 09:48 Dose: Not Given Documented by: Gabapentin (Neurontin -) 400 mg PO Q12H PRN PRN Reason: PAIN Last Admin: 03/08/20 10:12 Dose: 400 mg Documented by: Ceftriaxone Sodium 1 gm/ (Dextrose) 50 mls @ 100 mls/hr IVPB DAILY@0000 [facility]; Protocol Last Admin: 03/09/20 00:24 Dose: 100 mls/hr Documented by: Potassium Chloride/Sodium Chloride (1/2ns+20meq Kcl) 20 meq in 1,000 mls @ 75 mls/hr IV ASDIR [facility] Losartan Potassium (Cozaar -) 50 mg PO DAILY [facility] Last Admin: 03/09/20 09:49 Dose: Not Given Documented by: Oxycodone HCl (Roxicodone -) 5 mg PO Q4H PRN PRN Reason: PAIN LEVEL 5-10 Last Admin: 03/09/20 08:50 Dose: 5 mg Documented by: Potassium Chloride (K-Dur -) 40 meq PO DAILY [facility] Last Admin: 03/09/20 10:22 Dose: 40 meq Documented by: Tamsulosin HCl (Flomax -) 0.8 mg PO DAILY [facility] Last Admin: 03/09/20 10:24 Dose: Not Given Documented by: Torsemide (Demadex -) 20 mg PO DAILY [facility] Last Admin: 03/09/20 09:49 Dose: Not Given Documented by: Umeclidinium/Vilanterol (Anoro Ellipta 62.5-25 Mcg Inh) 1 puff IH DAILY [facility] Last Admin: 03/09/20 11:10 Dose: 1 puff Documented by: - Objective Vital Signs: Vital Signs Temperature 98.1 F 03/09/20 10:15 Pulse Rate 70 03/09/20 10:15 Respiratory Rate 18 03/09/20 10:15 Blood Pressure 130/56 L 03/09/20 10:15 O2 Sat by Pulse Oximetry (%) 98 03/09/20 10:15 Neck: Yes: Supple Cardiovascular: Yes: Regular Rate and Rhythm, S1, S2 Respiratory: Yes: CTA Bilaterally Gastrointestinal: Yes: Normal Bowel Sounds, Soft. No: Tenderness Edema: No Additional Findings/Remarks: - Review of Systems Constitutional: denies Fever. denies: Chills Cardiovascular: denies Shortness of Breath. denies: Chest Pain, Palpitations Respiratory: denies Cough, SOB. denies: Hemoptysis, Orthopnea, PND, Wheezing Gastrointestinal: denies: Abdominal Pain, Constipation, Diarrhea, Melena, Nausea, Rectal Bleeding, Vomiting Genitourinary: denies: Dysuria, (+) Hematuria Musculoskeletal: denies: Back Pain, Joint Pain Neurological: denies: Dizziness, Headache, Seizure, Syncope Labs: CBC, BMP 03/09/20 08:45 03/09/20 08:45 Problem List - Problems (1) [id number] kidney injury Code(s): N17.9 - ACUTE KIDNEY FAILURE, UNSPECIFIED; N18.9 - CHRONIC KIDNEY DISEASE, UNSPECIFIED Qualifiers: Chronic kidney disease stage: stage 2 (mild) (2) S/P TURP Code(s): Z90.79 - ACQUIRED ABSENCE OF OTHER GENITAL ORGAN(S) (3) Sepsis Code(s): A41.9 - SEPSIS, UNSPECIFIED ORGANISM Qualifiers: Sepsis type: sepsis due to unspecified organism Sepsis acute organ dysfunction status: unspecified Qualified Code(s): A41.9 - Sepsis, unspecified organism (4) UTI (urinary tract infection) Code(s): N39.0 - URINARY TRACT INFECTION, SITE NOT SPECIFIED Qualifiers: Urinary tract infection type: acute cystitis Hematuria presence: with hematuria Qualified Code(s): N30.01 - Acute cystitis with hematuria (5) COPD (chronic obstructive pulmonary disease) with acute bronchitis Code(s): J44.0 - CHR OBSTRUCTIVE PULMON DISEASE WITH (ACUTE) LOWER RESP INFCT; J20.9 - ACUTE BRONCHITIS, UNSPECIFIED (6) Coronary artery disease Code(s): I25.10 - ATHSCL HEART DISEASE OF [place] CORONARY ARTERY W/O ANG PCTRS Qualifiers: Coronary Disease-Associated Artery/Lesion type: [place] artery [place] vs. transplanted heart: [place] heart Associated angina: without angina Qualified Code(s): I25.10 - Atherosclerotic heart disease of [place] coronary artery without angina pectoris (7) Hypercholesterolemia Code(s): E78.00 - PURE HYPERCHOLESTEROLEMIA, UNSPECIFIED (8) Hypertensive heart disease Code(s): I11.9 - HYPERTENSIVE HEART DISEASE WITHOUT HEART FAILURE Qualifiers: Heart failure presence: without heart failure Qualified Code(s): I11.9 - Hypertensive heart disease without heart failure (9) Presence of drug-eluting stent in right coronary artery Code(s): Z95.5 - PRESENCE OF CORONARY ANGIOPLASTY IMPLANT AND GRAFT (10) Sleep apnea Code(s): G47.30 - SLEEP APNEA, UNSPECIFIED Qualifiers: Sleep apnea type: obstructive Qualified Code(s): G47.33 - Obstructive sleep apnea (adult) (pediatric) Assessment/Plan 1. Sepsis source post TURP 2. COPD and pulmonary fibrosis 3. CAD s/p FISH to RCA 4. Diastolic dysfunction 5. Type 2 DM 6. BILL (prerenal) with proteinuria 7. OSAS on CPAP 8. Hypertensive heart disease 9. Hyperlipidemia 10 History of PE PLAN: 1. Hold ASA and Plavix until hematuria resolves (FISH placed 2017) then restart 2. Continue Lipitor 80 mg QHS 3. Continue Carvedilol 25 mg BID as tolerated and BP permitting 4. Continue Cozaar 50 mg QD with close monitoring of renal function and if BP permits 5. Continue Norvasc 10 mg QD if BP permits 6. Continue Demadex 10 mg QD and K-Dur supplementation. If BP goes down, may need to hold 7. Antibiotic coverage 8. Bronchodilator, O2 as needed, CPAP nightly 9. follow up Further plans are to follow Robin Arellano MD
--- NOTE | 2020-03-09 12:48 | PN ---
Progress Note, Physician History of Present Illness: patients events noted pain and heamturia last night morning became hypotensicve and had sepsis symptoms plan for transfusion - Current Medication List Current Medications: Active Medications Acetaminophen (Tylenol -) 325 mg PO Q4H PRN PRN Reason: PAIN LEVEL 5-10 Stop: 03/12/20 03:59 Last Admin: 03/09/20 03:59 Dose: 325 mg Documented by: Acetaminophen (Tylenol -) 650 mg PO Q8H [facility] Last Admin: 03/09/20 08:36 Dose: Not Given Documented by: Albuterol Sulfate (Ventolin Hfa Inhaler -) 2 puff IH Q6H PRN PRN Reason: SHORTNESS OF BREATH Amlodipine Besylate (Norvasc -) 10 mg PO DAILY [facility] Last Admin: 03/09/20 09:49 Dose: Not Given Documented by: Aspirin (Asa -) 81 mg PO DAILY [facility] Last Admin: 03/09/20 09:48 Dose: Not Given Documented by: Atorvastatin Calcium (Lipitor -) 80 mg PO [facility] Last Admin: 03/08/20 21:10 Dose: 80 mg Documented by: Carvedilol (Coreg -) 25 mg PO BID [facility] Last Admin: 03/09/20 09:48 Dose: Not Given Documented by: Gabapentin (Neurontin -) 400 mg PO Q12H PRN PRN Reason: PAIN Last Admin: 03/08/20 10:12 Dose: 400 mg Documented by: Ceftriaxone Sodium 1 gm/ (Dextrose) 50 mls @ 100 mls/hr IVPB DAILY@0000 [facility]; Protocol Last Admin: 03/09/20 00:24 Dose: 100 mls/hr Documented by: Potassium Chloride/Sodium Chloride (1/2ns+20meq Kcl) 20 meq in 1,000 mls @ 75 mls/hr IV ASDIR [facility] Losartan Potassium (Cozaar -) 50 mg PO DAILY [facility] Last Admin: 03/09/20 09:49 Dose: Not Given Documented by: Oxycodone HCl (Roxicodone -) 5 mg PO Q4H PRN PRN Reason: PAIN LEVEL 5-10 Last Admin: 03/09/20 08:50 Dose: 5 mg Documented by: Potassium Chloride (K-Dur -) 40 meq PO DAILY [facility] Last Admin: 03/09/20 10:22 Dose: 40 meq Documented by: Tamsulosin HCl (Flomax -) 0.8 mg PO DAILY [facility] Last Admin: 03/09/20 10:24 Dose: Not Given Documented by: Torsemide (Demadex -) 20 mg PO DAILY [facility] Last Admin: 03/09/20 09:49 Dose: Not Given Documented by: Umeclidinium/Vilanterol (Anoro Ellipta 62.5-25 Mcg Inh) 1 puff IH DAILY [facility] Last Admin: 03/09/20 11:10 Dose: 1 puff Documented by: - Objective Vital Signs: Vital Signs Temperature 98.1 F 03/09/20 10:15 Pulse Rate 70 03/09/20 10:15 Respiratory Rate 18 03/09/20 10:15 Blood Pressure 130/56 L 03/09/20 10:15 O2 Sat by Pulse Oximetry (%) 98 03/09/20 10:15 Constitutional: Yes: Calm, Mild Distress Cardiovascular: Yes: S1, S2 Respiratory: Yes: Regular, CTA Bilaterally Gastrointestinal: Yes: Normal Bowel Sounds, Soft Genitourinary: Yes: Aguilar Present, Hematuria, Other Musculoskeletal: Yes: WNL Extremities: Yes: WNL Neurological: Yes: Alert, Oriented Psychiatric: Yes: Alert, Oriented Labs: CBC, BMP 03/09/20 08:45 03/09/20 08:45 INR, PTT INR 1.20 (0.83-1.09) H 03/03/20 21:00 Assessment/Plan Problem List - Problems (1) BILL (acute kidney injury) Code(s): N17.9 - ACUTE KIDNEY FAILURE, UNSPECIFIED (2) S/P TURP Code(s): Z90.79 - ACQUIRED ABSENCE OF OTHER GENITAL ORGAN(S) (3) Sepsis Code(s): A41.9 - SEPSIS, UNSPECIFIED ORGANISM Qualifiers: Sepsis type: sepsis due to unspecified organism Sepsis acute organ dysfunction status: unspecified Qualified Code(s): A41.9 - Sepsis, unspecified organism (4) UTI (urinary tract infection) Code(s): N39.0 - URINARY TRACT INFECTION, SITE NOT SPECIFIED Qualifiers: Urinary tract infection type: acute cystitis Hematuria presence: with hematuria Qualified Code(s): N30.01 - Acute cystitis with hematuria (5) BPH (benign prostatic hyperplasia) Code(s): N40.0 - BENIGN PROSTATIC HYPERPLASIA WITHOUT LOWER URINRY TRACT SYMP (6) HLD (hyperlipidemia) Code(s): E78.5 - HYPERLIPIDEMIA, UNSPECIFIED Qualifiers: Hyperlipidemia type: pure hypercholesterolemia Qualified Code(s): E78.00 - Pure hypercholesterolemia, unspecified; E78.0 - Pure hypercholesterolemia (7) Hypertensive heart disease Code(s): I11.9 - HYPERTENSIVE HEART DISEASE WITHOUT HEART FAILURE Qualifiers: Heart failure presence: without heart failure Qualified Code(s): I11.9 - Hypertensive heart disease without heart failure (8) Obesity (BMI 30.0-34.9) Code(s): E66.9 - OBESITY, UNSPECIFIED (9) Sleep apnea Code(s): G47.30 - SLEEP APNEA, UNSPECIFIED Qualifiers: Sleep apnea type: obstructive Qualified Code(s): G47.33 - Obstructive sleep apnea (adult) (pediatric) Assessment/Plan Sepsis Complicated UTI +hematuria/urinary retention - aguilar reinserted s/p TURP BILL BPH CAD COPD Hx of COVID-19 -- Urine Cx +E. coli, continue Ceftriaxone. Pt without rash/adverse reaction. continue current mgmt plan will change ceftriaxone to ertapenam transfusion rest as per the team
--- NOTE | 2020-03-09 13:11 | PN ---
Progress Note, Physician History of Present Illness: Pt seen and examined at bedside. He is awake and alert. he was found to be hypotensive and found to have a drop in his hg today. - Current Medication List Current Medications: Active Medications Acetaminophen (Tylenol -) 325 mg PO Q4H PRN PRN Reason: PAIN LEVEL 5-10 Stop: 03/12/20 03:59 Last Admin: 03/09/20 03:59 Dose: 325 mg Documented by: Acetaminophen (Tylenol -) 650 mg PO Q8H [facility] Last Admin: 03/09/20 08:36 Dose: Not Given Documented by: Albuterol Sulfate (Ventolin Hfa Inhaler -) 2 puff IH Q6H PRN PRN Reason: SHORTNESS OF BREATH Amlodipine Besylate (Norvasc -) 10 mg PO DAILY [facility] Last Admin: 03/09/20 09:49 Dose: Not Given Documented by: Aspirin (Asa -) 81 mg PO DAILY [facility] Last Admin: 03/09/20 09:48 Dose: Not Given Documented by: Atorvastatin Calcium (Lipitor -) 80 mg PO HS [facility] Last Admin: 03/08/20 21:10 Dose: 80 mg Documented by: Carvedilol (Coreg -) 25 mg PO BID [facility] Last Admin: 03/09/20 09:48 Dose: Not Given Documented by: Gabapentin (Neurontin -) 400 mg PO Q12H PRN PRN Reason: PAIN Last Admin: 03/08/20 10:12 Dose: 400 mg Documented by: Potassium Chloride/Sodium Chloride (1/2ns+20meq Kcl) 20 meq in 1,000 mls @ 75 mls/hr IV ASDIR [facility] Ertapenem 1 gm/ Sodium (Chloride) 50 mls @ 100 mls/hr IVPB DAILY [facility] Losartan Potassium (Cozaar -) 50 mg PO DAILY [facility] Last Admin: 03/09/20 09:49 Dose: Not Given Documented by: Oxycodone HCl (Roxicodone -) 5 mg PO Q4H PRN PRN Reason: PAIN LEVEL 5-10 Last Admin: 03/09/20 08:50 Dose: 5 mg Documented by: Potassium Chloride (K-Dur -) 40 meq PO DAILY [facility] Last Admin: 03/09/20 10:22 Dose: 40 meq Documented by: Tamsulosin HCl (Flomax -) 0.8 mg PO DAILY [facility] Last Admin: 03/09/20 10:24 Dose: Not Given Documented by: Torsemide (Demadex -) 20 mg PO DAILY [facility] Last Admin: 03/09/20 09:49 Dose: Not Given Documented by: Umeclidinium/Vilanterol (Anoro Ellipta 62.5-25 Mcg Inh) 1 puff IH DAILY [facility] Last Admin: 03/09/20 11:10 Dose: 1 puff Documented by: - Objective Vital Signs: Vital Signs Temperature 98.1 F 03/09/20 10:15 Pulse Rate 70 03/09/20 10:15 Respiratory Rate 18 03/09/20 10:15 Blood Pressure 130/56 L 03/09/20 10:15 O2 Sat by Pulse Oximetry (%) 98 03/09/20 10:15 Constitutional: Yes: Calm Eyes: Yes: Conjunctiva Clear HENT: Yes: Atraumatic Neck: Yes: Supple Cardiovascular: Yes: S1, S2 Respiratory: Yes: CTA Bilaterally Gastrointestinal: Yes: Soft Genitourinary: Yes: Dove Present, Hematuria Musculoskeletal: Yes: WNL Edema: Yes Edema: LLE: 1+, RLE: 1+ Neurological: Yes: Oriented Psychiatric: Yes: Oriented Labs: CBC, BMP 03/09/20 08:45 03/09/20 08:45 INR, PTT INR 1.20 (0.83-1.09) H 03/03/20 21:00 Problem List - Problems (1) BILL (acute kidney injury) Code(s): N17.9 - ACUTE KIDNEY FAILURE, UNSPECIFIED (2) S/P TURP Code(s): Z90.79 - ACQUIRED ABSENCE OF OTHER GENITAL ORGAN(S) (3) Sepsis Code(s): A41.9 - SEPSIS, UNSPECIFIED ORGANISM Qualifiers: Sepsis type: sepsis due to unspecified organism Sepsis acute organ dysfunction status: unspecified Qualified Code(s): A41.9 - Sepsis, unspecified organism (4) UTI (urinary tract infection) Code(s): N39.0 - URINARY TRACT INFECTION, SITE NOT SPECIFIED Qualifiers: Urinary tract infection type: acute cystitis Hematuria presence: with hematuria Qualified Code(s): N30.01 - Acute cystitis with hematuria Assessment/Plan Current Medications Generic Name Dose Route Start Last Admin Trade Name Freq PRN Reason Stop Dose Admin Acetaminophen 325 mg 03/09/20 04:00 03/09/20 03:59 Tylenol - PO 03/12/20 03:59 325 mg Q4H PRN Administration PAIN LEVEL 5-10 Acetaminophen 650 mg 03/09/20 07:00 03/09/20 08:36 Tylenol - PO Not Given Q8H [facility] Albuterol Sulfate 2 puff 03/03/20 23:30 Ventolin Hfa Inhaler - IH Q6H PRN SHORTNESS OF BREATH Amlodipine Besylate 10 mg 03/04/20 10:00 03/09/20 09:49 Norvasc - PO Not Given DAILY [facility] Aspirin 81 mg 03/04/20 10:00 03/09/20 09:48 Asa - PO Not Given DAILY [facility] Atorvastatin Calcium 80 mg 03/04/20 22:00 03/08/20 21:10 Lipitor - PO 80 mg HS [facility] Administration Carvedilol 25 mg 03/04/20 10:00 03/09/20 09:48 Coreg - PO Not Given BID [facility] Gabapentin 400 mg 03/03/20 23:30 03/08/20 10:12 Neurontin - PO 400 mg Q12H PRN Administration PAIN Potassium Chloride/Sodium Chloride 20 meq in 1,000 mls @ 75 mls/hr 03/09/20 09:30 1/2ns+20meq Kcl IV ASDIR [facility] Ertapenem 1 gm/ Sodium 50 mls @ 100 mls/hr 03/09/20 13:00 Chloride IVPB DAILY [facility] Losartan Potassium 50 mg 03/08/20 10:00 03/09/20 09:49 Cozaar - PO Not Given DAILY [facility] Oxycodone HCl 5 mg 03/09/20 04:00 03/09/20 08:50 Roxicodone - PO 5 mg Q4H PRN Administration PAIN LEVEL 5-10 Potassium Chloride 40 meq 03/06/20 10:00 03/09/20 10:22 K-Dur - PO 40 meq DAILY [facility] Administration Tamsulosin HCl 0.8 mg 03/04/20 10:00 03/09/20 10:24 Flomax - PO Not Given DAILY [facility] Torsemide 20 mg 03/04/20 10:00 03/09/20 09:49 Demadex - PO Not Given DAILY [facility] Umeclidinium/Vilanterol 1 puff 03/04/20 10:00 03/09/20 11:10 Anoro Ellipta 62.5-25 Mcg Inh IH 1 puff DAILY [facility] Administration Impression 1. BILL 2. sepsis 3. hx PE 4. pulm fibrosis 5. s/p TURP 6. copd 7. cad 8. right renal simple cyst Plan - repeat bp is improved - pt getting prbc - monitor hg - renal function worse today, likely from hypotension - urology follow up - bp meds on hold - d/c amlodipine - hold losartan - hold torsemide - pt being transferred to a monitored unit
--- NOTE | 2020-03-09 13:13 | EKG ---
Test Reason : Blood Pressure : / mmHG Vent. Rate : 070 BPM Atrial Rate : 070 BPM P-R Int : 136 ms QRS Dur : 132 ms QT Int : 464 ms P-R-T Axes : 066 -26 -18 degrees QTc Int : 501 ms NORMAL SINUS RHYTHM WITH SINUS ARRHYTHMIA RIGHT BUNDLE BRANCH BLOCK ABNORMAL ECG WHEN COMPARED WITH ECG OF 03-MAR-2020 21:50, NO SIGNIFICANT CHANGE WAS FOUND Confirmed by Bobby Mendez ([id number]) on 03/09/2020 1:12:35 PM Referred By: Jayne DIALLO Confirmed By:Bobby Mendez
[2020-03-09] MEDS: ERTAPENEM SODIUM 1 GM in SODIUM CHLORIDE 50 ML IVPB SCH (14:04)
--- NOTE | 2020-03-09 14:24 | PN ---
Teaching Attending Note Name of Resident: Edi Maguire ATTENDING PHYSICIAN STATEMENT I saw and evaluated the patient. I reviewed the resident's note and discussed the case with the resident. I agree with the resident's findings and plan as documented. SUBJECTIVE: 74 M, well known to me. Moderate COPD and severe OSAS not recently on PAP thera py due to COVID19 infection. COVID19 course complicated by acute respiratory failure, possible VTE, and AMI. Admitted via the ER due to fever, chills, and generalized weakness three days post-op from TURP. Since admission has had multiple aguilar manipulations. Developed obstruction overnight. Clots were relieved with some clinical benefit early AM. Had 1 episode of hypotension without associated CP, SOB, or tachycardia noted. Remains afebrile. Intake & Output 03/06/20 03/07/20 03/08/20 03/09/20 23:59 23:59 23:59 23:59 Intake Total 500 34216 3455 7150 Output Total 1100 89467 4900 8100 Balance -600 -4500 -1445 -950 Last Vital Signs Temp Pulse Resp BP Pulse Ox 98.8 F 76 18 98/68 98 03/09/20 13:19 03/09/20 13:19 03/09/20 13:19 03/09/20 13:19 03/09/20 13:19 Active Medications Acetaminophen (Tylenol -) 325 mg PO Q4H PRN PRN Reason: PAIN LEVEL 5-10 Stop: 03/12/20 03:59 Last Admin: 03/09/20 03:59 Dose: 325 mg Documented by: Acetaminophen (Tylenol -) 650 mg PO Q8H [facility] Last Admin: 03/09/20 14:13 Dose: 650 mg Documented by: Albuterol Sulfate (Ventolin Hfa Inhaler -) 2 puff IH Q6H PRN PRN Reason: SHORTNESS OF BREATH Aspirin (Asa -) 81 mg PO DAILY [facility] Last Admin: 03/09/20 09:48 Dose: Not Given Documented by: Atorvastatin Calcium (Lipitor -) 80 mg PO HS [facility] Last Admin: 03/08/20 21:10 Dose: 80 mg Documented by: Carvedilol (Coreg -) 25 mg PO BID [facility] Last Admin: 03/09/20 09:48 Dose: Not Given Documented by: Gabapentin (Neurontin -) 400 mg PO Q12H PRN PRN Reason: PAIN Last Admin: 03/08/20 10:12 Dose: 400 mg Documented by: Potassium Chloride/Sodium Chloride (1/2ns+20meq Kcl) 20 meq in 1,000 mls @ 75 mls/hr IV ASDIR [facility] Ertapenem 1 gm/ Sodium (Chloride) 50 mls @ 100 mls/hr IVPB DAILY [facility] Last Admin: 03/09/20 14:04 Dose: 100 mls/hr Documented by: Oxycodone HCl (Roxicodone -) 5 mg PO Q4H PRN PRN Reason: PAIN LEVEL 5-10 Last Admin: 03/09/20 08:50 Dose: 5 mg Documented by: Potassium Chloride (K-Dur -) 40 meq PO DAILY [facility] Last Admin: 03/09/20 10:22 Dose: 40 meq Documented by: Tamsulosin HCl (Flomax -) 0.8 mg PO DAILY [facility] Last Admin: 03/09/20 10:24 Dose: Not Given Documented by: Torsemide (Demadex -) 20 mg PO DAILY [facility] Last Admin: 03/09/20 09:49 Dose: Not Given Documented by: Umeclidinium/Vilanterol (Anoro Ellipta 62.5-25 Mcg Inh) 1 puff IH DAILY [facility] Last Admin: 03/09/20 11:10 Dose: 1 puff Documented by: Physical Exam: Constitutional: Well-developed, well-nourished, NAD Head: Normocephalic. No obvious external signs of trauma. Eyes: Sclerae white. Ears: Hearing grossly intact. Nose: No nasal discharge. Neck: Supple, trachea is midline. Cardiovascular: S1S2 Respiratory: Clear bilaterally, diminished at the bases Gastrointestinal: softly distended with mild tenderness over the suprapubic area, No rebound or guarding. Neuro: Alert and oriented. Non-focal Skin: Warm and dry. Psych: Affect: appropriate. Mood: normal. Male : Aguilar catheter in place. Laboratory Results - last 24 hr 03/06/20 03/09/20 03/09/20 23:00 08:45 08:45 WBC 15.0 H RBC 2.77 L Hgb 7.5 L Hct 23.3 L D MCV 84.1 MCH 27.2 MCHC 32.4 RDW 15.8 Plt Count 321 D MPV 8.1 Sodium 139 Potassium 3.7 Chloride 103 Carbon Dioxide 26 Anion Gap 9 BUN 28.3 H Creatinine 1.5 H Est GFR (CKD-EPI)AfAm 52.03 Est GFR (CKD-EPI)NonAf 44.89 Random Glucose 239 H Lactic Acid Calcium 8.1 L Magnesium 2.0 Total Bilirubin 0.6 AST 11 L ALT 26 Alkaline Phosphatase 54 Creatine Kinase Troponin I Total Protein 5.9 L Albumin 2.8 L Blood Type A POSITIVE Antibody Screen Negative Crossmatch See Detail 03/09/20 03/09/20 03/09/20 12:45 12:45 12:45 WBC RBC Hgb Hct MCV MCH MCHC RDW Plt Count MPV Sodium Potassium Chloride Carbon Dioxide Anion Gap BUN Creatinine Est GFR (CKD-EPI)AfAm Est GFR (CKD-EPI)NonAf Random Glucose Lactic Acid 3.8 H* Calcium Magnesium Total Bilirubin AST ALT Alkaline Phosphatase Creatine Kinase 38 Troponin I < 0.02 Total Protein Albumin Blood Type A POSITIVE Antibody Screen Crossmatch ASSESSMENT / PLAN: Hypotension due to Hypovolemia Low clinical suspicion of Sepsis at this point Hypertension Hyperlipidemia CAD s/p stent in 2018 at [facility] COPD Hx of PE BPH S/p TURP 02/23/2020 IVF Transfuse 1 unit of pRBCs Normal transfusion thresholds ABX per ID Supplemental O2 as needed BD TX PRN Noted AC is on hold : Continue ASA & Plavix given CAD & PCI No indication for systemic steroids Will need OSAS re-evaluation after discharge Cardiac Telemetry monitoring : Does not require ICU level of care at this time Please call for any change in condition or questions Thank you. Dr Ambrosio
[2020-03-09] MEDS ORDERED: FUROSEMIDE 40 MG/4 ML INJECTABLE VIAL IVPUSH ONE (19:00)
[2020-03-09] MEDS ORDERED: POTASSIUM CHLORIDE ORAL LIQUID 20 MEQ/15 ML PO ONE (21:57)
[2020-03-09] MEDS: ATORVASTATIN CA 80 MG TABLET (FP) PO SCH (22:01)
--- NOTE | 2020-03-09 22:30 | PN ---
Progress Note, Physician History of Present Illness: Pt had an episode of Hypotension Drop in Hb/HCt to :7 Pt having Lactic Acid3.8 spoke to ID WBC went up to 15 Changed antibiotics Case discussed with cardiology Pt for cystoscopy in AM spoke with Dr Mohan - Current Medication List Current Medications: Active Medications Acetaminophen (Tylenol -) 325 mg PO Q4H PRN PRN Reason: PAIN LEVEL 5-10 Stop: 03/12/20 03:59 Last Admin: 03/09/20 18:46 Dose: 325 mg Documented by: Acetaminophen (Tylenol -) 650 mg PO Q8H [facility] Last Admin: 03/09/20 22:00 Dose: 650 mg Documented by: Albuterol Sulfate (Ventolin Hfa Inhaler -) 2 puff IH Q6H PRN PRN Reason: SHORTNESS OF BREATH Aspirin (Asa -) 81 mg PO DAILY [facility] Last Admin: 03/09/20 09:48 Dose: Not Given Documented by: Atorvastatin Calcium (Lipitor -) 80 mg PO HS [facility] Last Admin: 03/09/20 22:01 Dose: 80 mg Documented by: Carvedilol (Coreg -) 25 mg PO BID [facility] Last Admin: 03/09/20 22:01 Dose: 25 mg Documented by: Furosemide (Lasix Injection -) 20 mg IVPUSH ONCE ONE Stop: 03/09/20 20:01 Gabapentin (Neurontin -) 400 mg PO Q12H PRN PRN Reason: PAIN Last Admin: 03/08/20 10:12 Dose: 400 mg Documented by: Potassium Chloride/Sodium Chloride (1/2ns+20meq Kcl) 20 meq in 1,000 mls @ 75 mls/hr IV ASDIR [facility] Last Admin: 03/09/20 14:19 Dose: 75 mls/hr Documented by: Ertapenem 1 gm/ Sodium (Chloride) 50 mls @ 100 mls/hr IVPB DAILY [facility] Last Admin: 03/09/20 14:04 Dose: 100 mls/hr Documented by: Oxycodone HCl (Roxicodone -) 5 mg PO Q4H PRN PRN Reason: PAIN LEVEL 5-10 Last Admin: 03/09/20 18:44 Dose: 5 mg Documented by: Potassium Chloride (K-Dur -) 40 meq PO DAILY [facility] Last Admin: 03/09/20 10:22 Dose: 40 meq Documented by: Tamsulosin HCl (Flomax -) 0.8 mg PO DAILY [facility] Last Admin: 03/09/20 10:24 Dose: Not Given Documented by: Torsemide (Demadex -) 20 mg PO DAILY [facility] Last Admin: 03/09/20 09:49 Dose: Not Given Documented by: Umeclidinium/Vilanterol (Anoro Ellipta 62.5-25 Mcg Inh) 1 puff IH DAILY [facility] Last Admin: 03/09/20 11:10 Dose: 1 puff Documented by: - Objective Vital Signs: Vital Signs Temperature 97.7 F 03/09/20 18:00 Pulse Rate 77 03/09/20 18:00 Respiratory Rate 18 03/09/20 18:00 Blood Pressure 161/65 03/09/20 18:00 O2 Sat by Pulse Oximetry (%) 99 03/09/20 14:00 Constitutional: Yes: Anxious Eyes: Yes: Conjunctiva Clear, EOM Intact HENT: Yes: Atraumatic, Normocephalic Neck: Yes: Supple, Trachea Midline Cardiovascular: Yes: Regular Rate and Rhythm, S1, S2 Respiratory: Yes: Regular, CTA Bilaterally Gastrointestinal: Yes: Normal Bowel Sounds, Soft Musculoskeletal: Yes: Joint Stiffness Edema: No Peripheral Pulses WNL: Yes Labs: CBC, BMP 03/09/20 08:45 03/09/20 08:45 INR, PTT INR 1.20 (0.83-1.09) H 03/03/20 21:00 Problem List - Problems (1) S/P TURP Code(s): Z90.79 - ACQUIRED ABSENCE OF OTHER GENITAL ORGAN(S) (2) Sepsis Code(s): A41.9 - SEPSIS, UNSPECIFIED ORGANISM Qualifiers: Sepsis type: sepsis due to unspecified organism Sepsis acute organ dysfunction status: unspecified Qualified Code(s): A41.9 - Sepsis, unspecified organism (3) UTI (urinary tract infection) Code(s): N39.0 - URINARY TRACT INFECTION, SITE NOT SPECIFIED Qualifiers: Urinary tract infection type: acute cystitis Hematuria presence: with hematuria Qualified Code(s): N30.01 - Acute cystitis with hematuria (4) Acute TX, inferior wall, initial episode of care Code(s): I21.19 - STEMI INVOLVING OTH CORONARY ARTERY OF INFERIOR WALL (5) Acute exacerbation of chronic obstructive pulmonary disease (COPD) Code(s): J44.1 - CHRONIC OBSTRUCTIVE PULMONARY DISEASE W (ACUTE) EXACERBATION (6) COPD (chronic obstructive pulmonary disease) with acute bronchitis Code(s): J44.0 - CHR OBSTRUCTIVE PULMON DISEASE WITH (ACUTE) LOWER RESP INFCT; J20.9 - ACUTE BRONCHITIS, UNSPECIFIED (7) Calcaneal spur, right foot Code(s): M77.31 - CALCANEAL SPUR, RIGHT FOOT (8) Coronary artery disease Code(s): I25.10 - ATHSCL HEART DISEASE OF [place] CORONARY ARTERY W/O ANG PCTRS Qualifiers: Coronary Disease-Associated Artery/Lesion type: [place] artery [place] vs. transplanted heart: [place] heart Associated angina: without angina Qualified Code(s): I25.10 - Atherosclerotic heart disease of [place] coronary artery without angina pectoris (9) HLD (hyperlipidemia) Code(s): E78.5 - HYPERLIPIDEMIA, UNSPECIFIED Qualifiers: Hyperlipidemia type: pure hypercholesterolemia Qualified Code(s): E78.00 - Pure hypercholesterolemia, unspecified; E78.0 - Pure hypercholesterolemia (10) Hypercholesterolemia Code(s): E78.00 - PURE HYPERCHOLESTEROLEMIA, UNSPECIFIED (11) Hypokalemia Code(s): E87.6 - HYPOKALEMIA (12) Hypoxia Code(s): R09.02 - HYPOXEMIA (13) Lumbar radiculopathy, chronic Code(s): M54.16 - RADICULOPATHY, LUMBAR REGION (14) NSTEMI (non-ST elevated myocardial infarction) Code(s): I21.4 - NON-ST ELEVATION (NSTEMI) MYOCARDIAL INFARCTION (15) Obesity (BMI 30.0-34.9) Code(s): E66.9 - OBESITY, UNSPECIFIED (16) Presence of drug-eluting stent in right coronary artery Code(s): Z95.5 - PRESENCE OF CORONARY ANGIOPLASTY IMPLANT AND GRAFT (17) Sciatica Code(s): M54.30 - SCIATICA, UNSPECIFIED SIDE Qualifiers: Laterality: right Qualified Code(s): M54.31 - Sciatica, right side (18) Shingles (herpes zoster) polyneuropathy Code(s): B02.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 (19) Sleep apnea Code(s): G47.30 - SLEEP APNEA, UNSPECIFIED Qualifiers: Sleep apnea type: obstructive Qualified Code(s): G47.33 - Obstructive sleep apnea (adult) (pediatric) (20) Syncope Code(s): R55 - SYNCOPE AND COLLAPSE Assessment/Plan (1) S/P TURP Code(s): Z90.79 - ACQUIRED ABSENCE OF OTHER GENITAL ORGAN(S) (2) Sepsis Code(s): A41.9 - SEPSIS, UNSPECIFIED ORGANISM Qualifiers: Sepsis type: sepsis due to unspecified organism Sepsis acute organ dysfunction status: unspecified Qualified Code(s): A41.9 - Sepsis, unspecified organism (3) UTI (urinary tract infection) Code(s): N39.0 - URINARY TRACT INFECTION, SITE NOT SPECIFIED Qualifiers: Urinary tract infection type: acute cystitis Hematuria presence: with hematuria Qualified Code(s): N30.01 - Acute cystitis with hematuria (4) H/O Acute TX, inferior wall TX S/P Stent Code(s): I21.19 - STEMI INVOLVING OTH CORONARY ARTERY OF INFERIOR WALL (5) Acute exacerbation of chronic obstructive pulmonary disease (COPD) Code(s): J44.1 - CHRONIC OBSTRUCTIVE PULMONARY DISEASE W (ACUTE) EXACERBATION (6) COPD (chronic obstructive pulmonary disease) with acute bronchitis Code(s): J44.0 - CHR OBSTRUCTIVE PULMON DISEASE WITH (ACUTE) LOWER RESP INFCT; J20.9 - ACUTE BRONCHITIS, UNSPECIFIED (7) Calcaneal spur, right foot Code(s): M77.31 - CALCANEAL SPUR, RIGHT FOOT (8) Coronary artery disease Code(s): I25.10 - ATHSCL HEART DISEASE OF [place] CORONARY ARTERY W/O ANG PCTRS Qualifiers: Coronary Disease-Associated Artery/Lesion type: [place] artery [place] vs. transplanted heart: [place] heart Associated angina: without angina Qualified Code(s): I25.10 - Atherosclerotic heart disease of [place] coronary artery without angina pectoris (9) HLD (hyperlipidemia) Code(s): E78.5 - HYPERLIPIDEMIA, UNSPECIFIED Qualifiers: Hyperlipidemia type: pure hypercholesterolemia Qualified Code(s): E78.00 - Pure hypercholesterolemia, unspecified; E78.0 - Pure hypercholesterolemia (10) Hypercholesterolemia Code(s): E78.00 - PURE HYPERCHOLESTEROLEMIA, UNSPECIFIED (11) Hypokalemia Code(s): E87.6 - HYPOKALEMIA (12) Hypoxia Code(s): R09.02 - HYPOXEMIA (13) Lumbar radiculopathy, chronic Code(s): M54.16 - RADICULOPATHY, LUMBAR REGION (14) NSTEMI (non-ST elevated myocardial infarction) Code(s): I21.4 - NON-ST ELEVATION (NSTEMI) MYOCARDIAL INFARCTION (15) Obesity (BMI 30.0-34.9) Code(s): E66.9 - OBESITY, UNSPECIFIED (16) Presence of drug-eluting stent in right coronary artery Code(s): Z95.5 - PRESENCE OF CORONARY ANGIOPLASTY IMPLANT AND GRAFT (17) Sciatica Code(s): M54.30 - SCIATICA, UNSPECIFIED SIDE Qualifiers: Laterality: right Qualified Code(s): M54.31 - Sciatica, right side (18) Shingles (herpes zoster) polyneuropathy Code(s): B02.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 (19) Sleep apnea : at Home BIPAP Pt refused here Code(s): G47.30 - SLEEP APNEA, UNSPECIFIED Qualifiers: Sleep apnea type: obstructive Qualified Code(s): G47.33 - Obstructive sleep apnea (adult) (pediatric) (20) Syncope Code(s): R55 - SYNCOPE AND COLLAPSE Hypotension Sepsis Drop in HB 2units of PRBC Blood cultures CXR Cystoscopy in AM
[2020-03-09] MEDS ORDERED: MAGNESIUM 1GM/D5W - 1 GM/100 ML IVPB IVPB ONE (22:45)
[2020-03-10] MEDS ORDERED: FUROSEMIDE 40 MG/4 ML INJECTABLE VIAL IVPUSH ONE (01:15)
[2020-03-10] MEDS: ACETAMINOPHEN 325 MG TABLET (FP) PO PRN (03:42)
[2020-03-10] MEDS: ACETAMINOPHEN 325 MG TABLET (FP) PO SCH ×3 (06:53→21:50)
[2020-03-10 07:06] LABS: BASO % 0.6 % (0-2.0); EOS % 5.4 % (0-4.5); HEMOGLOBIN 8.2 GM/dL (11.7-16.9); MCH 27.9 pg (25.7-33.7); MEAN CELL VOLUME 84.8 fl (80-96); MEAN PLT VOLUME 7.7 fl (7.5-11.1); MONO % 7.9 % (3.8-10.2); NEUT % 69.1 % (42.8-82.8); PLATELET COUNT 229 K/MM3 (134-434); RBC 2.94 M/mm3 (4.00-5.60); RDW 15.6 % (11.9-15.9); WHITE BLOOD COUNT 11.2 K/mm3 (4.0-10.0)
[2020-03-10 07:26] LABS: INR 1.07 (0.83-1.09); PROTHROMBIN TIME (PATIENT) 12.6 SEC (9.7-13.0)
[2020-03-10 07:41] LABS: ALBUMIN 2.9 g/dl (3.4-5.0); BILIRUBIN,TOTAL 0.6 mg/dL (0.2-1); BLOOD UREA NITROGEN 27.4 mg/dL (7-18); CALCIUM 8.5 mg/dL (8.5-10.1); CREATININE 1.3 mg/dL (0.55-1.3); MAGNESIUM 2.4 mg/dL (1.8-2.4); POTASSIUM 3.4 mmol/L (3.5-5.1)
[2020-03-10] MEDS: TORSEMIDE 20 MG TABLET (FP) PO SCH (08:52)
[2020-03-10] MEDS: CARVEDILOL 25 MG TABLET (FP) PO SCH ×2 (08:52→21:50)
--- NOTE | 2020-03-10 10:32 | PN ---
Progress Note, Physician History of Present Illness: Hemodynamics stable, hematuria and clots currently undergoing cystoscopy, not on floor for exam. - Current Medication List Current Medications: Active Medications Acetaminophen (Tylenol -) 325 mg PO Q4H PRN PRN Reason: PAIN LEVEL 5-10 Stop: 03/12/20 03:59 Last Admin: 03/10/20 03:42 Dose: 325 mg Documented by: Acetaminophen (Tylenol -) 650 mg PO Q8H [facility] Last Admin: 03/10/20 06:53 Dose: Not Given Documented by: Albuterol Sulfate (Ventolin Hfa Inhaler -) 2 puff IH Q6H PRN PRN Reason: SHORTNESS OF BREATH Aspirin (Asa -) 81 mg PO DAILY [facility] Last Admin: 03/09/20 09:48 Dose: Not Given Documented by: Atorvastatin Calcium (Lipitor -) 80 mg PO HS [facility] Last Admin: 03/09/20 22:01 Dose: 80 mg Documented by: Carvedilol (Coreg -) 25 mg PO BID [facility] Last Admin: 03/10/20 08:52 Dose: 25 mg Documented by: Gabapentin (Neurontin -) 400 mg PO Q12H PRN PRN Reason: PAIN Last Admin: 03/08/20 10:12 Dose: 400 mg Documented by: Ertapenem 1 gm/ Sodium (Chloride) 50 mls @ 100 mls/hr IVPB DAILY [facility] Last Admin: 03/09/20 14:04 Dose: 100 mls/hr Documented by: Potassium Chloride/Sodium Chloride (1/2ns+20meq Kcl) 20 meq in 1,000 mls @ 50 mls/hr IV ASDIR [facility] Last Admin: 03/10/20 01:55 Dose: 50 mls/hr Documented by: Oxycodone HCl (Roxicodone -) 5 mg PO Q4H PRN PRN Reason: PAIN LEVEL 5-10 Last Admin: 03/09/20 18:44 Dose: 5 mg Documented by: Potassium Chloride (K-Dur -) 40 meq PO DAILY [facility] Last Admin: 03/09/20 10:22 Dose: 40 meq Documented by: Tamsulosin HCl (Flomax -) 0.8 mg PO DAILY [facility] Last Admin: 03/09/20 10:24 Dose: Not Given Documented by: Torsemide (Demadex -) 20 mg PO DAILY [facility] Last Admin: 03/10/20 08:52 Dose: 20 mg Documented by: Umeclidinium/Vilanterol (Anoro Ellipta 62.5-25 Mcg Inh) 1 puff IH DAILY [facility] Last Admin: 03/09/20 11:10 Dose: 1 puff Documented by: - Objective Vital Signs: Vital Signs Temperature 98.2 F 03/10/20 08:52 Pulse Rate 73 03/10/20 08:52 Respiratory Rate 18 03/10/20 08:52 Blood Pressure 187/79 H 03/10/20 08:52 O2 Sat by Pulse Oximetry (%) 98 03/10/20 08:52 Labs: CBC, BMP 03/10/20 05:35 03/10/20 05:35 INR, PTT INR 1.07 (0.83-1.09) 03/10/20 05:35 Problem List - Problems (1) [id number] kidney injury Code(s): N17.9 - ACUTE KIDNEY FAILURE, UNSPECIFIED; N18.9 - CHRONIC KIDNEY DISEASE, UNSPECIFIED Qualifiers: Chronic kidney disease stage: stage 2 (mild) (2) BILL (acute kidney injury) Code(s): N17.9 - ACUTE KIDNEY FAILURE, UNSPECIFIED (3) S/P TURP Code(s): Z90.79 - ACQUIRED ABSENCE OF OTHER GENITAL ORGAN(S) (4) Sepsis Code(s): A41.9 - SEPSIS, UNSPECIFIED ORGANISM Qualifiers: Sepsis type: sepsis due to unspecified organism Sepsis acute organ dysfunction status: unspecified Qualified Code(s): A41.9 - Sepsis, unspecified organism (5) UTI (urinary tract infection) Code(s): N39.0 - URINARY TRACT INFECTION, SITE NOT SPECIFIED Qualifiers: Urinary tract infection type: acute cystitis Hematuria presence: with hematuria Qualified Code(s): N30.01 - Acute cystitis with hematuria (6) Coronary artery disease Code(s): I25.10 - ATHSCL HEART DISEASE OF [place] CORONARY ARTERY W/O ANG PCTRS Qualifiers: Coronary Disease-Associated Artery/Lesion type: [place] artery [place] vs. transplanted heart: [place] heart Associated angina: without angina Qualified Code(s): I25.10 - Atherosclerotic heart disease of [place] coronary artery without angina pectoris (7) HLD (hyperlipidemia) Code(s): E78.5 - HYPERLIPIDEMIA, UNSPECIFIED Qualifiers: Hyperlipidemia type: pure hypercholesterolemia Qualified Code(s): E78.00 - Pure hypercholesterolemia, unspecified; E78.0 - Pure hypercholesterolemia (8) Hypertensive heart disease Code(s): I11.9 - HYPERTENSIVE HEART DISEASE WITHOUT HEART FAILURE Qualifiers: Heart failure presence: without heart failure Qualified Code(s): I11.9 - Hy pertensive heart disease without heart failure (9) Presence of drug-eluting stent in right coronary artery Code(s): Z95.5 - PRESENCE OF CORONARY ANGIOPLASTY IMPLANT AND GRAFT (10) Sleep apnea Code(s): G47.30 - SLEEP APNEA, UNSPECIFIED Qualifiers: Sleep apnea type: obstructive Qualified Code(s): G47.33 - Obstructive sleep apnea (adult) (pediatric) Assessment/Plan 05/20/2018 Nuc stress: Mod inferior ischemia with small infarct, LVEF 52% 05/20/2018 Echo: Normal LV size with mod cLVH, LVEF 55-60%, mild LAE, mod MR, tr TR 05/21/2018 LHC performed at [facility]/NSTEMI and moderate inferior ischemia. 2 vessel CAD 90-95% ostial LCx-OM (medium sized vessel) left alone, 90-95% prox RCA which was treated with implant Resolute [place] 4.0x18 mm FISH post- dilated with NC 4.5x15 balloon @ 14 SARAHY, normal LV fxn LVEF 65-70% with elevated LVEDP 27 mmHg, no aortic stenosis. Mynx deployed right [employer] access site, no complications. Recommend optimal medical therapy for secondary prevention of cardiovascular disease, consider PCI of LCx-OM if remains symptomatic despite meds, patient is candidate for cardiac rehab. 1. Sepsis source post TURP s/p cystoscopy 2. COPD, pulm fibrosis 3. CAD s/p FISH RCA 4. Diastolic dysfunction 5. Type 2 DM 6. BILL (prerenal) with proteinuria improved 7. OSAS on cpap 8. Hypertensive heart disease 9. Hyperlipidemia 10 H/o PE PLAN: 1. Hold ASA and Plavix until hematuria resolves (FISH placed 2017) then restart 2. Continue Lipitor 80 qd 3. Continue Carvedilol 25 bid 4. Continue Cozaar 50 qd with close monitoring of renal function, dose titration as needed 5. Continue Norvasc 10 qd 6. Continue Demadex 20 qd and K-Dur supplementation, correction of potassium l evel 7. Antibiotic course as per ID team 8. BD, O2 as needed, cpap nightly
[2020-03-10] MEDS ORDERED: PROPOFOL 20 ML ONE (11:03)
[2020-03-10] MEDS ORDERED: MIDAZOLAM HCL 2 MG/2 ML SINGLE DOSE VIAL ONE (11:04)
[2020-03-10] MEDS ORDERED: ceFAZolin SODIUM 1 GM VIAL IVPB ONE (11:15)
--- NOTE | 2020-03-10 11:46 | PN ---
Progress Note, Physician History of Present Illness: Pt seen and examined at bedside. He is awake and alert. He denies shortness of breath. - Current Medication List Current Medications: Active Medications Acetaminophen (Tylenol -) 325 mg PO Q4H PRN PRN Reason: PAIN LEVEL 5-10 Stop: 03/12/20 03:59 Last Admin: 03/10/20 03:42 Dose: 325 mg Documented by: Acetaminophen (Tylenol -) 650 mg PO Q8H [facility] Last Admin: 03/10/20 06:53 Dose: Not Given Documented by: Albuterol Sulfate (Ventolin Hfa Inhaler -) 2 puff IH Q6H PRN PRN Reason: SHORTNESS OF BREATH Aspirin (Asa -) 81 mg PO DAILY [facility] Last Admin: 03/09/20 09:48 Dose: Not Given Documented by: Atorvastatin Calcium (Lipitor -) 80 mg PO HS [facility] Last Admin: 03/09/20 22:01 Dose: 80 mg Documented by: Carvedilol (Coreg -) 25 mg PO BID [facility] Last Admin: 03/10/20 08:52 Dose: 25 mg Documented by: Gabapentin (Neurontin -) 400 mg PO Q12H PRN PRN Reason: PAIN Last Admin: 03/08/20 10:12 Dose: 400 mg Documented by: Ertapenem 1 gm/ Sodium (Chloride) 50 mls @ 100 mls/hr IVPB DAILY [facility] Last Admin: 03/09/20 14:04 Dose: 100 mls/hr Documented by: Potassium Chloride/Sodium Chloride (1/2ns+20meq Kcl) 20 meq in 1,000 mls @ 50 mls/hr IV ASDIR [facility] Last Admin: 03/10/20 01:55 Dose: 50 mls/hr Documented by: Oxycodone HCl (Roxicodone -) 5 mg PO Q4H PRN PRN Reason: PAIN LEVEL 5-10 Last Admin: 03/09/20 18:44 Dose: 5 mg Documented by: Potassium Chloride (K-Dur -) 40 meq PO DAILY [facility] Last Admin: 03/09/20 10:22 Dose: 40 meq Documented by: Tamsulosin HCl (Flomax -) 0.8 mg PO DAILY [facility] Last Admin: 03/09/20 10:24 Dose: Not Given Documented by: Torsemide (Demadex -) 20 mg PO DAILY [facility] Last Admin: 03/10/20 08:52 Dose: 20 mg Documented by: Umeclidinium/Vilanterol (Anoro Ellipta 62.5-25 Mcg Inh) 1 puff IH DAILY [facility] Last Admin: 03/09/20 11:10 Dose: 1 puff Documented by: - Objective Vital Signs: Vital Signs Temperature 98.2 F 03/10/20 08:52 Pulse Rate 73 03/10/20 08:52 Respiratory Rate 18 03/10/20 09:00 Blood Pressure 187/79 H 03/10/20 08:52 O2 Sat by Pulse Oximetry (%) 98 03/10/20 09:00 Constitutional: Yes: Calm Eyes: Yes: Conjunctiva Clear HENT: Yes: Atraumatic Cardiovascular: Yes: S1, S2 Respiratory: Yes: CTA Bilaterally Gastrointestinal: Yes: Soft Genitourinary: Yes: [place] Present, Hematuria Musculoskeletal: Yes: WNL Edema: Yes Edema: LLE: 1+, RLE: 1+ Neurological: Yes: Oriented Psychiatric: Yes: Oriented Labs: CBC, BMP 03/10/20 05:35 03/10/20 05:35 INR, PTT INR 1.07 (0.83-1.09) 03/10/20 05:35 Problem List - Problems (1) BILL (acute kidney injury) Code(s): N17.9 - ACUTE KIDNEY FAILURE, UNSPECIFIED (2) S/P TURP Code(s): Z90.79 - ACQUIRED ABSENCE OF OTHER GENITAL ORGAN(S) (3) Sepsis Code(s): A41.9 - SEPSIS, UNSPECIFIED ORGANISM Qualifiers: Sepsis type: sepsis due to unspecified organism Sepsis acute organ dysfunction status: unspecified Qualified Code(s): A41.9 - Sepsis, unspecified organism (4) UTI (urinary tract infection) Code(s): N39.0 - URINARY TRACT INFECTION, SITE NOT SPECIFIED Qualifiers: Urinary tract infection type: acute cystitis Hematuria presence: with hematuria Qualified Code(s): N30.01 - Acute cystitis with hematuria Assessment/Plan Current Medications Generic Name Dose Route Start Last Admin Trade Name Freq PRN Reason Stop Dose Admin Acetaminophen 325 mg 03/09/20 04:00 03/10/20 03:42 Tylenol - PO 03/12/20 03:59 325 mg Q4H PRN Administration PAIN LEVEL 5-10 Acetaminophen 650 mg 03/09/20 07:00 03/10/20 06:53 Tylenol - PO Not Given Q8H [facility] Albuterol Sulfate 2 puff 03/03/20 23:30 Ventolin Hfa Inhaler - IH Q6H PRN SHORTNESS OF BREATH Aspirin 81 mg 03/04/20 10:00 03/09/20 09:48 Asa - PO Not Given DAILY [facility] Atorvastatin Calcium 80 mg 03/04/20 22:00 03/09/20 22:01 Lipitor - PO 80 mg HS [facility] Administration Carvedilol 25 mg 03/04/20 10:00 03/10/20 08:52 Coreg - PO 25 mg BID [facility] Administration Gabapentin 400 mg 03/03/20 23:30 03/08/20 10:12 Neurontin - PO 400 mg Q12H PRN Administration PAIN Ertapenem 1 gm/ Sodium 50 mls @ 100 mls/hr 03/09/20 13:00 03/09/20 14:04 Chloride IVPB 100 mls/hr DAILY [facility] Administration Potassium Chloride/Sodium Chloride 20 meq in 1,000 mls @ 50 mls/hr 03/09/20 22:34 03/10/20 01:55 1/2ns+20meq Kcl IV 50 mls/hr ASDIR [facility] Administration Oxycodone HCl 5 mg 03/09/20 04:00 03/09/20 18:44 Roxicodone - PO 5 mg Q4H PRN Administration PAIN LEVEL 5-10 Potassium Chloride 40 meq 03/06/20 10:00 03/09/20 10:22 K-Dur - PO 40 meq DAILY [facility] Administration Tamsulosin HCl 0.8 mg 03/04/20 10:00 03/09/20 10:24 Flomax - PO Not Given DAILY [facility] Torsemide 20 mg 03/04/20 10:00 03/10/20 08:52 Demadex - PO 20 mg DAILY [facility] Administration Umeclidinium/Vilanterol 1 puff 03/04/20 10:00 03/09/20 11:10 Anoro Ellipta 62.5-25 Mcg Inh IH 1 puff DAILY [facility] Administration Impression 1. BILL 2. sepsis 3. hx PE 4. pulm fibrosis 5. s/p TURP 6. copd 7. cad 8. right renal simple cyst Plan - bp is improved and now is elevated - restart losartan and monitor bp - pt t get potassium supplement - cyto today as he is still bleeding - d/c fluids once eating - renal function stabilizing, will monitor
[2020-03-10] MEDS ORDERED: LOSARTAN POTASSIUM 50 MG TABLET (FP) PO SCH (12:00)
[2020-03-10] MEDS ORDERED: GABAPENTIN 400 MG CAPSULE PO PRN (12:40)
[2020-03-10] MEDS ORDERED: ALBUTEROL SO4 HFA INHALER IH PRN (12:40)
[2020-03-10] MEDS ORDERED: oxyCODONE HCL 5 MG TABLET PO PRN (12:40)
[2020-03-10] MEDS ORDERED: ACETAMINOPHEN 325 MG TABLET (FP) PO PRN (12:40)
--- NOTE | 2020-03-10 13:19 | PN ---
Progress Note, Physician History of Present Illness: stable no issues patient will be going to or - Current Medication List Current Medications: Active Medications Acetaminophen (Tylenol -) 325 mg PO Q4H PRN PRN Reason: PAIN LEVEL 5-10 Stop: 03/12/20 03:59 Acetaminophen (Tylenol -) 650 mg PO TID [facility] Albuterol Sulfate (Ventolin Hfa Inhaler -) 2 puff IH Q6H PRN PRN Reason: SHORTNESS OF BREATH Aspirin (Asa -) 81 mg PO DAILY [facility] Atorvastatin Calcium (Lipitor -) 80 mg PO HS [facility] Carvedilol (Coreg -) 25 mg PO BID [facility] Gabapentin (Neurontin -) 400 mg PO Q12H PRN PRN Reason: PAIN Ertapenem 1 gm/ Sodium (Chloride) 50 mls @ 100 mls/hr IVPB DAILY [facility] Potassium Chloride/Sodium Chloride (1/2ns+20meq Kcl) 20 meq in 1,000 mls @ 50 mls/hr IV ASDIR [facility] Losartan Potassium (Cozaar -) 50 mg PO DAILY [facility] Oxycodone HCl (Roxicodone -) 5 mg PO Q4H PRN PRN Reason: PAIN LEVEL 5-10 Potassium Chloride (K-Dur -) 40 meq PO DAILY [facility] Tamsulosin HCl (Flomax -) 0.8 mg PO 0830 [facility] Torsemide (Demadex -) 20 mg PO DAILY [facility] Umeclidinium/Vilanterol (Anoro Ellipta 62.5-25 Mcg Inh) 1 puff IH DAILY [facility] - Objective Vital Signs: Vital Signs Temperature 97.5 F L 03/10/20 12:06 Pulse Rate 65 03/10/20 13:05 Respiratory Rate 16 03/10/20 13:05 Blood Pressure 161/50 L 03/10/20 13:05 O2 Sat by Pulse Oximetry (%) 100 03/10/20 13:05 Constitutional: Yes: No Distress, Calm Cardiovascular: Yes: S1, S2 Respiratory: Yes: Regular, CTA Bilaterally Gastrointestinal: Yes: Normal Bowel Sounds, Soft Musculoskeletal: Yes: WNL Extremities: Yes: WNL Neurological: Yes: Alert, Oriented Psychiatric: Yes: Alert, Oriented Labs: CBC, BMP 03/10/20 05:35 03/10/20 05:35 INR, PTT INR 1.07 (0.83-1.09) 07/22/20 05:35 Assessment/Plan Problem List - Problems (1) BILL (acute kidney injury) Code(s): N17.9 - ACUTE KIDNEY FAILURE, UNSPECIFIED (2) S/P TURP Code(s): Z90.79 - ACQUIRED ABSENCE OF OTHER GENITAL ORGAN(S) (3) Sepsis Code(s): A41.9 - SEPSIS, UNSPECIFIED ORGANISM Qualifiers: Sepsis type: sepsis due to unspecified organism Sepsis acute organ dysfunction status: unspecified Qualified Code(s): A41.9 - Sepsis, unspecified organism (4) UTI (urinary tract infection) Code(s): N39.0 - URINARY TRACT INFECTION, SITE NOT SPECIFIED Qualifiers: Urinary tract infection type: acute cystitis Hematuria presence: with hematuria Qualified Code(s): N30.01 - Acute cystitis with hematuria (5) BPH (benign prostatic hyperplasia) Code(s): N40.0 - BENIGN PROSTATIC HYPERPLASIA WITHOUT LOWER URINRY TRACT SYMP (6) HLD (hyperlipidemia) Code(s): E78.5 - HYPERLIPIDEMIA, UNSPECIFIED Qualifiers: Hyperlipidemia type: pure hypercholesterolemia Qualified Code(s): E78.00 - Pure hypercholesterolemia, unspecified; E78.0 - Pure hypercholesterolemia (7) Hypertensive heart disease Code(s): I11.9 - HYPERTENSIVE HEART DISEASE WITHOUT HEART FAILURE Qualifiers: Heart failure presence: without heart failure Qualified Code(s): I11.9 - Hypertensive heart disease without heart failure (8) Obesity (BMI 30.0-34.9) Code(s): E66.9 - OBESITY, UNSPECIFIED (9) Sleep apnea Code(s): G47.30 - SLEEP APNEA, UNSPECIFIED Qualifiers: Sleep apnea type: obstructive Qualified Code(s): G47.33 - Obstructive sleep apnea (adult) (pediatric) Assessment/Plan Sepsis Complicated UTI +hematuria/urinary retention - aguilar reinserted s/p TURP BILL BPH CAD COPD Hx of COVID-19 -- Urine Cx +E. coli, continue Ceftriaxone. Pt without rash/adverse reaction. continue current mgmt plan continue ertapenam will see findings of cystocopy and decide further rest as per team patient for cystoscopy
--- NOTE | 2020-03-10 15:17 | PN ---
Progress Note, Physician History of Present Illness: Pt was put on OR list after speaking with Dr Mohan Urology Pt was kept NPO Pt today went to OR for cystoscopy Pt had 2 units of PRBC still Hb not up to demetra Cystoscopic findings discussed with Dr Romero Pt is on aguilar now Draining Pinkish urine Pt will have one unit of PRBC lasix 20 IV after transfusion Pt will hace CBC and CMP/Lactic acid level at 6Pm - Current Medication List Current Medications: Active Medications Acetaminophen (Tylenol -) 325 mg PO Q4H PRN PRN Reason: PAIN LEVEL 5-10 Stop: 03/12/20 03:59 Acetaminophen (Tylenol -) 650 mg PO TID [facility] Albuterol Sulfate (Ventolin Hfa Inhaler -) 2 puff IH Q6H PRN PRN Reason: SHORTNESS OF BREATH Aspirin (Asa -) 81 mg PO DAILY [facility] Atorvastatin Calcium (Lipitor -) 80 mg PO HS [facility] Carvedilol (Coreg -) 25 mg PO BID [facility] Gabapentin (Neurontin -) 400 mg PO Q12H PRN PRN Reason: PAIN Potassium Chloride/Sodium Chloride (1/2ns+20meq Kcl) 20 meq in 1,000 mls @ 50 mls/hr IV ASDIR [facility] Meropenem 1 gm/ Dextrose 100 mls @ 200 mls/hr IVPB Q8H-IV [facility] Losartan Potassium (Cozaar -) 50 mg PO DAILY [facility] Oxycodone HCl (Roxicodone -) 5 mg PO Q4H PRN PRN Reason: PAIN LEVEL 5-10 Potassium Chloride (K-Dur -) 40 meq PO DAILY [facility] Tamsulosin HCl (Flomax -) 0.8 mg PO 0830 [facility] Torsemide (Demadex -) 20 mg PO DAILY [facility] Umeclidinium/Vilanterol (Anoro Ellipta 62.5-25 Mcg Inh) 1 puff IH DAILY [facility] - Objective Vital Signs: Vital Signs Temperature 97.5 F L 03/10/20 13:30 Pulse Rate 60 03/10/20 13:30 Respiratory Rate 16 03/10/20 13:30 Blood Pressure 164/82 03/10/20 13:30 O2 Sat by Pulse Oximetry (%) 96 03/10/20 13:30 Constitutional: Yes: Anxious Eyes: Yes: Conjunctiva Clear, EOM Intact HENT: Yes: Atraumatic, Normocephalic Neck: Yes: Supple, Trachea Midline Cardiovascular: Yes: Regular Rate and Rhythm, S1, S2 Respiratory: Yes: Regular, CTA Bilaterally Gastrointestinal: Yes: Normal Bowel Sounds, Soft Edema: No Peripheral Pulses WNL: Yes Neurological: Yes: Alert, Oriented, Cran Nerves II-XII Intact Labs: CBC, BMP 03/10/20 05:35 03/10/20 05:35 INR, PTT INR 1.07 (0.83-1.09) 03/10/20 05:35 Problem List - Problems (1) S/P TURP Code(s): Z90.79 - ACQUIRED ABSENCE OF OTHER GENITAL ORGAN(S) (2) Sepsis Code(s): A41.9 - SEPSIS, UNSPECIFIED ORGANISM Qualifiers: Sepsis type: sepsis due to unspecified organism Sepsis acute organ dysfunction status: unspecified Qualified Code(s): A41.9 - Sepsis, unspecified organism (3) UTI (urinary tract infection) Code(s): N39.0 - URINARY TRACT INFECTION, SITE NOT SPECIFIED Qualifiers: Urinary tract infection type: acute cystitis Hematuria presence: with hematuria Qualified Code(s): N30.01 - Acute cystitis with hematuria (4) Acute CO, inferior wall, initial episode of care Code(s): I21.19 - STEMI INVOLVING OTH CORONARY ARTERY OF INFERIOR WALL (5) Acute exacerbation of chronic obstructive pulmonary disease (COPD) Code(s): J44.1 - CHRONIC OBSTRUCTIVE PULMONARY DISEASE W (ACUTE) EXACERBATION (6) COPD (chronic obstructive pulmonary disease) with acute bronchitis Code(s): J44.0 - CHR OBSTRUCTIVE PULMON DISEASE WITH (ACUTE) LOWER RESP INFCT; J20.9 - ACUTE BRONCHITIS, UNSPECIFIED (7) Calcaneal spur, right foot Code(s): M77.31 - CALCANEAL SPUR, RIGHT FOOT (8) Coronary artery disease Code(s): I25.10 - ATHSCL HEART DISEASE OF [place] CORONARY ARTERY W/O ANG PCTRS Qualifiers: Coronary Disease-Associated Artery/Lesion type: [place] artery [place] vs. transplanted heart: [place] heart Associated angina: without angina Qualified Code(s): I25.10 - Atherosclerotic heart disease of [place] coronary artery without angina pectoris (9) HLD (hyperlipidemia) Code(s): E78.5 - HYPERLIPIDEMIA, UNSPECIFIED Qualifiers: Hyperlipidemia type: pure hypercholesterolemia Qualified Code(s): E78.00 - Pure hypercholesterolemia, unspecified; E78.0 - Pure hypercholesterolemia (10) Hypercholesterolemia Code(s): E78.00 - PURE HYPERCHOLESTEROLEMIA, UNSPECIFIED (11) Hypokalemia Code(s): E87.6 - HYPOKALEMIA (12) Hypoxia Code(s): R09.02 - HYPOXEMIA (13) Lumbar radiculopathy, chronic Code(s): M54.16 - RADICULOPATHY, LUMBAR REGION (14) NSTEMI (non-ST elevated myocardial infarction) Code(s): I21.4 - NON-ST ELEVATION (NSTEMI) MYOCARDIAL INFARCTION (15) Obesity (BMI 30.0-34.9) Code(s): E66.9 - OBESITY, UNSPECIFIED (16) Presence of drug-eluting stent in right coronary artery Code(s): Z95.5 - PRESENCE OF CORONARY ANGIOPLASTY IMPLANT AND GRAFT (17) Sciatica Code(s): M54.30 - SCIATICA, UNSPECIFIED SIDE Qualifiers: Laterality: right Qualified Code(s): M54.31 - Sciatica, right side (18) Shingles (herpes zoster) polyneuropathy Code(s): B02.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 (19) Sleep apnea Code(s): G47.30 - SLEEP APNEA, UNSPECIFIED Qualifiers: Sleep apnea type: obstructive Qualified Code(s): G47.33 - Obstructive sleep apnea (adult) (pediatric) (20) Syncope Code(s): R55 - SYNCOPE AND COLLAPSE Assessment/Plan (1) S/P TURP Code(s): Z90.79 - ACQUIRED ABSENCE OF OTHER GENITAL ORGAN(S) (2) Sepsis Code(s): A41.9 - SEPSIS, UNSPECIFIED ORGANISM Qualifiers: Sepsis type: sepsis due to unspecified organism Sepsis acute organ dysfunction status: unspecified Qualified Code(s): A41.9 - Sepsis, unspecified organism (3) UTI (urinary tract infection) Code(s): N39.0 - URINARY TRACT INFECTION, SITE NOT SPECIFIED Qualifiers: Urinary tract infection type: acute cystitis Hematuria presence: with hematuria Qualified Code(s): N30.01 - Acute cystitis with hematuria (4) H/O Acute CO, inferior wall CO S/P Stent Code(s): I21.19 - STEMI INVOLVING OTH CORONARY ARTERY OF INFERIOR WALL (5) Acute exacerbation of chronic obstructive pulmonary disease (COPD) Code(s): J44.1 - CHRONIC OBSTRUCTIVE PULMONARY DISEASE W (ACUTE) EXACERBATION (6) COPD (chronic obstructive pulmonary disease) with acute bronchitis Code(s): J44.0 - CHR OBSTRUCTIVE PULMON DISEASE WITH (ACUTE) LOWER RESP INFCT; J20.9 - ACUTE BRONCHITIS, UNSPECIFIED (7) Calcaneal spur, right foot Code(s): M77.31 - CALCANEAL SPUR, RIGHT FOOT (8) Coronary artery disease Code(s): I25.10 - ATHSCL HEART DISEASE OF [place] CORONARY ARTERY W/O ANG PCTRS Qualifiers: Coronary Disease-Associated Artery/Lesion type: [place] artery [place] vs. transplanted heart: [place] heart Associated angina: without angina Qualified Code(s): I25.10 - Atherosclerotic heart disease of [place] coronary artery without angina pectoris (9) HLD (hyperlipidemia) Code(s): E78.5 - HYPERLIPIDEMIA, UNSPECIFIED Qualifiers: Hyperlipidemia type: pure hypercholesterolemia Qualified Code(s): E78.00 - Pure hypercholesterolemia, unspecified; E78.0 - Pure hypercholesterolemia (10) Hypercholesterolemia Code(s): E78.00 - PURE HYPERCHOLESTEROLEMIA, UNSPECIFIED (11) Hypokalemia Code(s): E87.6 - HYPOKALEMIA (12) Hypoxia Code(s): R09.02 - HYPOXEMIA (13) Lumbar radiculopathy, chronic Code(s): M54.16 - RADICULOPATHY, LUMBAR REGION (14) NSTEMI (non-ST elevated myocardial infarction) Code(s): I21.4 - NON-ST ELEVATION (NSTEMI) MYOCARDIAL INFARCTION (15) Obesity (BMI 30.0-34.9) Code(s): E66.9 - OBESITY, UNSPECIFIED (16) Presence of drug-eluting stent in right coronary artery Code(s): Z95.5 - PRESENCE OF CORONARY ANGIOPLASTY IMPLANT AND GRAFT (17) Sciatica Code(s): M54.30 - SCIATICA, UNSPECIFIED SIDE Qualifiers: Laterality: right Qualified Code(s): M54.31 - Sciatica, right side (18) Shingles (herpes zoster) polyneuropathy Code(s): B02.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 (19) Sleep apnea : at Home BIPAP Pt refused here Code(s): G47.30 - SLEEP APNEA, UNSPECIFIED Qualifiers: Sleep apnea type: obstructive Qualified Code(s): G47.33 - Obstructive sleep apnea (adult) (pediatric) (20) Syncope Code(s): R55 - SYNCOPE AND COLLAPSE Pt was put on OR list after speaking with Dr Mohan Urology Pt was kept NPO Pt today went to OR for cystoscopy Pt had 2 units of PRBC still Hb not up to demetra Cystoscopic findings discussed with Dr Romero Pt is on aguilar now Draining Pinkish urine Pt will have one unit of PRBC lasix 20 IV after transfusion Pt will hace CBC and CMP/Lactic acid level at 6Pm
[2020-03-10] MEDS: SODIUM CHLORIDE 0.45%/POT 20 MEQ/1,000 ML INFUS.BAG IV SCH (15:30)
[2020-03-10] MEDS ORDERED: POTASSIUM CHLORIDE TABS 20 MEQ TABLET.ER (FP) PO ONE (15:33)
[2020-03-10] MEDS ORDERED: MEROPENEM 1 GM VIAL (RESTRICTED TO ID) IVPB ONE (16:45)
[2020-03-10] MEDS: MEROPENEM 1 GM in DEXTROSE 5%-WATER 100 ML IVPB SCH (17:00)
[2020-03-10] MEDS: ATORVASTATIN CA 80 MG TABLET (FP) PO SCH (21:50)
[2020-03-11] MEDS ORDERED: FUROSEMIDE 40 MG/4 ML INJECTABLE VIAL IVPUSH ONE (03:30)
[2020-03-11] MEDS ORDERED: MEROPENEM 1 GM VIAL (RESTRICTED TO ID) IVPB ONE ×3 (03:34→18:12)
[2020-03-11] MEDS ORDERED: FUROSEMIDE 40 MG/4 ML INJECTABLE VIAL ONE (03:34)
[2020-03-11] MEDS ORDERED: DEXTROSE 5%-WATER 100 ML IVPB ONE ×3 (03:35→18:12)
[2020-03-11] MEDS: MEROPENEM 1 GM in DEXTROSE 5%-WATER 100 ML IVPB SCH ×3 (03:50→18:17)
[2020-03-11] MEDS: ACETAMINOPHEN 325 MG TABLET (FP) PO SCH ×3 (06:45→21:37)
[2020-03-11 07:45] LABS: HEMATOCRIT 27.3 % (35.4-49); HEMOGLOBIN 9.1 GM/dL (11.7-16.9); MCH 28.2 pg (25.7-33.7); MCHC 33.4 g/dl (32.0-35.9); MEAN CELL VOLUME 84.3 fl (80-96); MEAN PLT VOLUME 7.7 fl (7.5-11.1); PLATELET COUNT 226 K/MM3 (134-434); RBC 3.24 M/mm3 (4.00-5.60); RDW 15.6 % (11.9-15.9); WHITE BLOOD COUNT 8.9 K/mm3 (4.0-10.0)
[2020-03-11 08:11] LABS: BLOOD UREA NITROGEN 24.9 mg/dL (7-18); CREATININE 1.1 mg/dL (0.55-1.3); N-TERMINAL BNP 1370.1 pg/ml (5-450)
[2020-03-11 08:21] LABS: POTASSIUM 2.9 mmol/L (3.5-5.1)
[2020-03-11] MEDS ORDERED: PT OWN MED DRAWER 7, Y5N ONE (09:08)
[2020-03-11] MEDS: TAMSULOSIN HCL 0.4 MG CAP PO SCH ×2 (09:21→21:30)
[2020-03-11] MEDS: ZINC SULFATE 220 MG CAPSULE (FP) PO SCH ×2 (09:21→21:37)
[2020-03-11] MEDS: CARVEDILOL 25 MG TABLET (FP) PO SCH ×3 (09:21→21:37)
[2020-03-11] MEDS: POTASSIUM CHLORIDE TABS 20 MEQ TABLET.ER (FP) PO SCH ×4 (09:21→21:30)
[2020-03-11] MEDS: ASCORBIC ACID 500 MG TABLET (FP) PO SCH ×2 (09:22→21:38)
[2020-03-11] MEDS: LOSARTAN POTASSIUM 50 MG TABLET (FP) PO SCH (09:22)
[2020-03-11] MEDS: TORSEMIDE 20 MG TABLET (FP) PO SCH ×2 (09:22→21:32)
[2020-03-11] MEDS: UMECLIDINIUM/VILANTEROL (ANORO) 62.5/25 MCG INHALER IH SCH ×2 (09:28→21:31)
[2020-03-11] MEDS ORDERED: ASPIRIN 81 MG CHEWABLE TABLETS PO SCH (10:00)
[2020-03-11] MEDS ORDERED: ERTAPENEM SODIUM 1 GM in SODIUM CHLORIDE 50 ML IVPB SCH (10:00)
--- NOTE | 2020-03-11 10:12 | PN ---
Progress Note, Physician History of Present Illness: Hemodynamics stable, hematuria and clots underwent s/p cysto/evac clots/fulguration, now with pink urine, denies any chest pain or dyspnea, Tm 100.2. - Current Medication List Current Medications: Active Medications Acetaminophen (Tylenol -) 325 mg PO Q4H PRN PRN Reason: PAIN LEVEL 5-10 Stop: 03/12/20 03:59 Acetaminophen (Tylenol -) 650 mg PO TID [facility] Last Admin: 03/11/20 06:45 Dose: 650 mg Documented by: Albuterol Sulfate (Ventolin Hfa Inhaler -) 2 puff IH Q6H PRN PRN Reason: SHORTNESS OF BREATH Ascorbic Acid (Vitamin C -) 500 mg PO BID [facility] Last Admin: 03/11/20 09:22 Dose: 500 mg Documented by: Aspirin (Asa -) 81 mg PO DAILY [facility] Atorvastatin Calcium (Lipitor -) 80 mg PO HS [facility] Last Admin: 03/10/20 21:50 Dose: 80 mg Documented by: Carvedilol (Coreg -) 25 mg PO BID [facility] Last Admin: 03/11/20 09:21 Dose: 25 mg Documented by: Gabapentin (Neurontin -) 400 mg PO Q12H PRN PRN Reason: PAIN Potassium Chloride/Sodium Chloride (1/2ns+20meq Kcl) 20 meq in 1,000 mls @ 50 mls/hr IV ASDIR [facility] Last Admin: 03/10/20 15:30 Dose: 50 mls/hr Documented by: Meropenem 1 gm/ Dextrose 100 mls @ 200 mls/hr IVPB Q8H-IV [facility] Last Admin: 03/11/20 09:22 Dose: 200 mls/hr Documented by: Losartan Potassium (Cozaar -) 50 mg PO DAILY [facility] Last Admin: 03/11/20 09:22 Dose: 50 mg Documented by: Oxycodone HCl (Roxicodone -) 5 mg PO Q4H PRN PRN Reason: PAIN LEVEL 5-10 Potassium Chloride (K-Dur -) 40 meq PO DAILY [facility] Potassium Chloride (K-Dur -) 40 meq PO BID [facility] Stop: 03/11/20 18:01 Last Admin: 03/11/20 09:21 Dose: 40 meq Documented by: Tamsulosin HCl (Flomax -) 0.8 mg PO 0830 [facility] Last Admin: 03/11/20 09:21 Dose: 0.8 mg Documented by: Torsemide (Demadex -) 20 mg PO DAILY [facility] Last Admin: 03/11/20 09:22 Dose: 20 mg Documented by: Umeclidinium/Vilanterol (Anoro Ellipta 62.5-25 Mcg Inh) 1 puff IH DAILY [facility] Last Admin: 03/11/20 09:28 Dose: 1 puff Documented by: Zinc Sulfate (Orazinc -) 220 mg PO BID [facility] Last Admin: 03/11/20 09:21 Dose: 220 mg Documented by: - Objective Vital Signs: Vital Signs Temperature 98.0 F 03/11/20 01:00 Pulse Rate 72 03/11/20 05:00 Respiratory Rate 18 03/11/20 05:00 Blood Pressure 169/76 03/11/20 05:00 O2 Sat by Pulse Oximetry (%) 95 03/11/20 01:00 Constitutional: Yes: No Distress, Calm Neck: Yes: Supple Cardiovascular: Yes: Regular Rate and Rhythm Respiratory: Yes: Regular, CTA Bilaterally Gastrointestinal: Yes: Normal Bowel Sounds, Soft Genitourinary: Yes: Aguilar Present, Hematuria Edema: No Labs: CBC, BMP 03/11/20 06:29 03/11/20 06:29 INR, PTT INR 1.07 (0.83-1.09) 03/10/20 05:35 - ....Imaging EKG: Report Reviewed (Tele: NSR) Problem List - Problems (1) [id number] kidney injury Code(s): N17.9 - ACUTE KIDNEY FAILURE, UNSPECIFIED; N18.9 - CHRONIC KIDNEY DISEASE, UNSPECIFIED Qualifiers: Chronic kidney disease stage: stage 2 (mild) (2) BILL (acute kidney injury) Code(s): N17.9 - ACUTE KIDNEY FAILURE, UNSPECIFIED (3) S/P TURP Code(s): Z90.79 - ACQUIRED ABSENCE OF OTHER GENITAL ORGAN(S) (4) Sepsis Code(s): A41.9 - SEPSIS, UNSPECIFIED ORGANISM Qualifiers: Sepsis type: sepsis due to unspecified organism Sepsis acute organ dysfunction status: unspecified Qualified Code(s): A41.9 - Sepsis, unspecified organism (5) UTI (urinary tract infection) Code(s): N39.0 - URINARY TRACT INFECTION, SITE NOT SPECIFIED Qualifiers: Urinary tract infection type: acute cystitis Hematuria presence: with hematuria Qualified Code(s): N30.01 - Acute cystitis with hematuria (6) Coronary artery disease Code(s): I25.10 - ATHSCL HEART DISEASE OF [place] CORONARY ARTERY W/O ANG PCTRS Qualifiers: Coronary Disease-Associated Artery/Lesion type: [place] artery [place] vs. transplanted heart: [place] heart Associated angina: without angina Qualified Code(s): I25.10 - Atherosclerotic heart disease of [place] coronary artery without angina pectoris (7) HLD (hyperlipidemia) Code(s): E78.5 - HYPERLIPIDEMIA, UNSPECIFIED Qualifiers: Hyperlipidemia type: pure hypercholesterolemia Qualified Code(s): E78.00 - Pure hypercholesterolemia, unspecified; E78.0 - Pure hypercholesterolemia (8) Hypertensive heart disease Code(s): I11.9 - HYPERTENSIVE HEART DISEASE WITHOUT HEART FAILURE Qualifiers: Heart failure presence: without heart failure Qualified Code(s): I11.9 - Hypertensive heart disease without heart failure (9) Presence of drug-eluting stent in right coronary artery Code(s): Z95.5 - PRESENCE OF CORONARY ANGIOPLASTY IMPLANT AND GRAFT (10) Sleep apnea Code(s): G47.30 - SLEEP APNEA, UNSPECIFIED Qualifiers: Sleep apnea type: obstructive Qualified Code(s): G47.33 - Obstructive sleep apnea (adult) (pediatric) Assessment/Plan 05/20/2018 Nuc stress: Mod inferior ischemia with small infarct, LVEF 52% 05/20/2018 Echo: Normal LV size with mod cLVH, LVEF 55-60%, mild LAE, mod MR, tr TR 05/21/2018 [facility] performed at [facility] [place]/NSTEMI and moderate inferior ischemia. 2 vessel CAD 90-95% ostial LCx-OM (medium sized vessel) left alone, 90-95% prox RCA which was treated with implant Resolute Bishop 4.0x18 mm FISH post- dilated with NC 4.5x15 balloon @ 14 SARAHY, normal LV fxn LVEF 65-70% with elevated LVEDP 27 mmHg, no aortic stenosis. 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 Recommend optimal medical therapy for secondary prevention of cardiovascular disease, consider PCI of LCx-OM if remains symptomatic despite meds, patient is candidate for cardiac rehab. 1. Sepsis source post TURP s/p cysto/evac clots/fulguration 2. COPD, pulm fibrosis 3. CAD s/p FISH RCA 4. Diastolic dysfunction 5. Type 2 DM 6. BILL (prerenal) with proteinuria improved 7. OSAS on cpap 8. Hypertensive heart disease 9. Hyperlipidemia 10 H/o PE PLAN: 1. Hold ASA and Plavix until hematuria resolves (FISH placed 2017) then restart 2. Continue Lipitor 80 qd 3. Continue Carvedilol 25 bid 4. Continue Cozaar 50 qd with close monitoring of renal function, dose titration as needed 5. Continue Norvasc 10 qd 6. Continue Demadex 20 qd and K-Dur supplementation, correction of potassium level 7. Antibiotic course as per ID team 8. BD, O2 as needed, cpap nightly 9. F/u abd/pelvic CT results, aguilar for 10 days per urology
--- NOTE | 2020-03-11 10:18 | PN ---
Progress Note (short form) - Note Progress Note: Tm 100.2 urine pink WBC normal s/p cysto/evac clots/fulguration cont aguilar to drainage
--- NOTE | 2020-03-11 11:14 | PN ---
Progress Note, Physician History of Present Illness: stable no new issues - Current Medication List Current Medications: Active Medications Acetaminophen (Tylenol -) 325 mg PO Q4H PRN PRN Reason: PAIN LEVEL 5-10 Stop: 03/12/20 03:59 Acetaminophen (Tylenol -) 650 mg PO TID [facility] Last Admin: 03/11/20 06:45 Dose: 650 mg Documented by: Albuterol Sulfate (Ventolin Hfa Inhaler -) 2 puff IH Q6H PRN PRN Reason: SHORTNESS OF BREATH Ascorbic Acid (Vitamin C -) 500 mg PO BID [facility] Last Admin: 03/11/20 09:22 Dose: 500 mg Documented by: Aspirin (Asa -) 81 mg PO DAILY [facility] Atorvastatin Calcium (Lipitor -) 80 mg PO HS [facility] Last Admin: 03/10/20 21:50 Dose: 80 mg Documented by: Carvedilol (Coreg -) 25 mg PO BID [facility] Last Admin: 03/11/20 09:21 Dose: 25 mg Documented by: Gabapentin (Neurontin -) 400 mg PO Q12H PRN PRN Reason: PAIN Potassium Chloride/Sodium Chloride (1/2ns+20meq Kcl) 20 meq in 1,000 mls @ 50 mls/hr IV ASDIR [facility] Last Admin: 03/10/20 15:30 Dose: 50 mls/hr Documented by: Meropenem 1 gm/ Dextrose 100 mls @ 200 mls/hr IVPB Q8H-IV [facility] Last Admin: 03/11/20 09:22 Dose: 200 mls/hr Documented by: Potassium Chloride (Potassium Chloride 10 Meq Premix Ivpb -) 10 meq in 100 mls @ 100 mls/hr IVPB Q60M [facility] Stop: 03/11/20 14:14 Losartan Potassium (Cozaar -) 50 mg PO DAILY [facility] Last Admin: 03/11/20 09:22 Dose: 50 mg Documented by: Oxycodone HCl (Roxicodone -) 5 mg PO Q4H PRN PRN Reason: PAIN LEVEL 5-10 Potassium Chloride (K-Dur -) 40 meq PO DAILY [facility] Potassium Chloride (K-Dur -) 40 meq PO BID [facility] Stop: 03/11/20 18:01 Last Admin: 03/11/20 09:21 Dose: 40 meq Documented by: Tamsulosin HCl (Flomax -) 0.8 mg PO 829 [facility] Last Admin: 03/11/20 09:21 Dose: 0.8 mg Documented by: Torsemide (Demadex -) 20 mg PO DAILY [facility] Last Admin: 03/11/20 09:22 Dose: 20 mg Documented by: Umeclidinium/Vilanterol (Anoro Ellipta 62.5-25 Mcg Inh) 1 puff IH DAILY [facility] Last Admin: 03/11/20 09:28 Dose: 1 puff Documented by: Zinc Sulfate (Orazinc -) 220 mg PO BID [facility] Last Admin: 03/11/20 09:21 Dose: 220 mg Documented by: - Objective Vital Signs: Vital Signs Temperature 98.1 F 03/11/20 09:00 Pulse Rate 73 03/11/20 09:00 Respiratory Rate 22 H 03/11/20 09:00 Blood Pressure 141/58 L 03/11/20 09:00 O2 Sat by Pulse Oximetry (%) 95 03/11/20 09:00 Constitutional: Yes: No Distress, Calm Cardiovascular: Yes: S1, S2 Respiratory: Yes: Regular, CTA Bilaterally Gastrointestinal: Yes: Normal Bowel Sounds, Soft Genitourinary: Yes: Aguilar Present Musculoskeletal: Yes: WNL Extremities: Yes: WNL Neurological: Yes: Alert, Oriented Psychiatric: Yes: Alert, Oriented Labs: CBC, BMP 03/11/20 10:30 03/11/20 06:29 INR, PTT INR 1.07 (0.83-1.09) 03/10/20 05:35 Assessment/Plan Problem List - Problems (1) BILL (acute kidney injury) Code(s): N17.9 - ACUTE KIDNEY FAILURE, UNSPECIFIED (2) S/P TURP Code(s): Z90.79 - ACQUIRED ABSENCE OF OTHER GENITAL ORGAN(S) (3) Sepsis Code(s): A41.9 - SEPSIS, UNSPECIFIED ORGANISM Qualifiers: Sepsis type: sepsis due to unspecified organism Sepsis acute organ dysfunction status: unspecified Qualified Code(s): A41.9 - Sepsis, unspecified organism (4) UTI (urinary tract infection) Code(s): N39.0 - URINARY TRACT INFECTION, SITE NOT SPECIFIED Qualifiers: Urinary tract infection type: acute cystitis Hematuria presence: with hematuria Qualified Code(s): N30.01 - Acute cystitis with hematuria (5) BPH (benign prostatic hyperplasia) Code(s): N40.0 - BENIGN PROSTATIC HYPERPLASIA WITHOUT LOWER URINRY TRACT SYMP (6) HLD (hyperlipidemia) Code(s): E78.5 - HYPERLIPIDEMIA, UNSPECIFIED Qualifiers: Hyperlipidemia type: pure hypercholesterolemia Qualified Code(s): E78.00 - Pure hypercholesterolemia, unspecified; E78.0 - Pure hypercholesterolemia (7) Hypertensive heart disease Code(s): I11.9 - HYPERTENSIVE HEART DISEASE WITHOUT HEART FAILURE Qualifiers: Heart failure presence: without heart failure Qualified Code(s): I11.9 - Hypertensive heart disease without heart failure (8) Obesity (BMI 30.0-34.9) Code(s): E66.9 - OBESITY, UNSPECIFIED (9) Sleep apnea Code(s): G47.30 - SLEEP APNEA, UNSPECIFIED Qualifiers: Sleep apnea type: obstructive Qualified Code(s): G47.33 - Obstructive sleep apnea (adult) (pediatric) Assessment/Plan Sepsis Complicated UTI +hematuria/urinary retention - aguilar reinserted s/p TURP BILL BPH CAD COPD Hx of COVID-19 -- Urine Cx +E. coli, continue Ceftriaxone. Pt without rash/adverse reaction. continue current mgmt plan abx meropenam rest as per the team
[2020-03-11 11:15] LABS: ANISOCYTOSIS 1+; MACROCYTOSIS 0; PLATELET ESTIMATE NORMAL
[2020-03-11] MEDS: KCL 10 MEQ IVPB 10 MEQ/100 ML INFUS.BAG IVPB SCH ×3 (12:21→15:11)
--- NOTE | 2020-03-11 14:25 | PN ---
Progress Note, Physician History of Present Illness: Pt had CT Abd /Pelvis No Perforation of Bladder/ No collection of any pelvic Fluid Case Discussed with Dr Kendall and Communicated with Dr Kimberlee Anderson was Conveyed of the findings also by message Pt had low grade fever Yesterday Pt had 0ne unit of PRBC yesterday No SOB No Chest pain Hypokalemia Being corrected Cardiology and Id FU noted Pt wanted to go home Advised about risk/Complications by me and Urology also - Current Medication List Current Medications: Active Medications Acetaminophen (Tylenol -) 325 mg PO Q4H PRN PRN Reason: PAIN LEVEL 5-10 Stop: 03/12/20 03:59 Acetaminophen (Tylenol -) 650 mg PO TID [facility] Last Admin: 03/11/20 06:45 Dose: 650 mg Documented by: Albuterol Sulfate (Ventolin Hfa Inhaler -) 2 puff IH Q6H PRN PRN Reason: SHORTNESS OF BREATH Ascorbic Acid (Vitamin C -) 500 mg PO BID [facility] Last Admin: 03/11/20 09:22 Dose: 500 mg Documented by: Aspirin (Asa -) 81 mg PO DAILY [facility] Atorvastatin Calcium (Lipitor -) 80 mg PO HS [facility] Last Admin: 03/10/20 21:50 Dose: 80 mg Documented by: Carvedilol (Coreg -) 25 mg PO BID [facility] Last Admin: 03/11/20 09:21 Dose: 25 mg Documented by: Gabapentin (Neurontin -) 400 mg PO Q12H PRN PRN Reason: PAIN Potassium Chloride/Sodium Chloride (1/2ns+20meq Kcl) 20 meq in 1,000 mls @ 50 mls/hr IV ASDIR [facility] Last Admin: 03/10/20 15:30 Dose: 50 mls/hr Documented by: Meropenem 1 gm/ Dextrose 100 mls @ 200 mls/hr IVPB Q8H-IV [facility] Last Admin: 03/11/20 09:22 Dose: 200 mls/hr Documented by: Losartan Potassium (Cozaar -) 50 mg PO DAILY [facility] Last Admin: 03/11/20 09:22 Dose: 50 mg Documented by: Oxycodone HCl (Roxicodone -) 5 mg PO Q4H PRN PRN Reason: PAIN LEVEL 5-10 Potassium Chloride (K-Dur -) 40 meq PO DAILY [facility] Potassium Chloride (K-Dur -) 40 meq PO BID [facility] Stop: 03/11/20 18:01 Last Admin: 03/11/20 09:21 Dose: 40 meq Documented by: Tamsulosin HCl (Flomax -) 0.8 mg PO 829 [facility] Last Admin: 03/11/20 09:21 Dose: 0.8 mg Documented by: Torsemide (Demadex -) 20 mg PO DAILY [facility] Last Admin: 03/11/20 09:22 Dose: 20 mg Documented by: Umeclidinium/Vilanterol (Anoro Ellipta 62.5-25 Mcg Inh) 1 puff IH DAILY [facility] Last Admin: 03/11/20 09:28 Dose: 1 puff Documented by: Zinc Sulfate (Orazinc -) 220 mg PO BID [facility] Last Admin: 03/11/20 09:21 Dose: 220 mg Documented by: - Objective Vital Signs: Vital Signs Temperature 98.1 F 03/11/20 09:00 Pulse Rate 73 03/11/20 09:00 Respiratory Rate 22 H 03/11/20 09:00 Blood Pressure 141/58 L 03/11/20 09:00 O2 Sat by Pulse Oximetry (%) 95 03/11/20 09:00 Constitutional: Yes: Anxious Eyes: Yes: Conjunctiva Clear, EOM Intact HENT: Yes: Atraumatic, Normocephalic Neck: Yes: Supple, Trachea Midline Cardiovascular: Yes: Regular Rate and Rhythm Respiratory: Yes: Regular, CTA Bilaterally Gastrointestinal: Yes: Normal Bowel Sounds, Other (CT shoing B/L hernia also) Labs: CBC, BMP 03/11/20 10:30 03/11/20 06:29 INR, PTT INR 1.07 (0.83-1.09) 03/10/20 05:35 Problem List - Problems (1) S/P TURP Code(s): Z90.79 - ACQUIRED ABSENCE OF OTHER GENITAL ORGAN(S) (2) Sepsis Code(s): A41.9 - SEPSIS, UNSPECIFIED ORGANISM Qualifiers: Sepsis type: sepsis due to unspecified organism Sepsis acute organ dysfunction status: unspecified Qualified Code(s): A41.9 - Sepsis, unspecified organism (3) UTI (urinary tract infection) Code(s): N39.0 - URINARY TRACT INFECTION, SITE NOT SPECIFIED Qualifiers: Urinary tract infection type: acute cystitis Hematuria presence: with hematuria Qualified Code(s): N30.01 - Acute cystitis with hematuria (4) Acute ID, inferior wall, initial episode of care Code(s): I21.19 - STEMI INVOLVING OTH CORONARY ARTERY OF INFERIOR WALL (5) Acute exacerbation of chronic obstructive pulmonary disease (COPD) Code(s): J44.1 - CHRONIC OBSTRUCTIVE PULMONARY DISEASE W (ACUTE) EXACERBATION (6) COPD (chronic obstructive pulmonary disease) with acute bronchitis Code(s): J44.0 - CHR OBSTRUCTIVE PULMON DISEASE WITH (ACUTE) LOWER RESP INFCT; J20.9 - ACUTE BRONCHITIS, UNSPECIFIED (7) Calcaneal spur, right foot Code(s): M77.31 - CALCANEAL SPUR, RIGHT FOOT (8) Coronary artery disease Code(s): I25.10 - ATHSCL HEART DISEASE OF [place] CORONARY ARTERY W/O ANG PCTRS Qualifiers: Coronary Disease-Associated Artery/Lesion type: [place] artery [place] vs. transplanted heart: [place] heart Associated angina: without angina Qualified Code(s): I25.10 - Atherosclerotic heart disease of [place] coronary artery without angina pectoris (9) HLD (hyperlipidemia) Code(s): E78.5 - HYPERLIPIDEMIA, UNSPECIFIED Qualifiers: Hyperlipidemia type: pure hypercholesterolemia Qualified Code(s): E78.00 - Pure hypercholesterolemia, unspecified; E78.0 - Pure hypercholesterolemia (10) Hypercholesterolemia Code(s): E78.00 - PURE HYPERCHOLESTEROLEMIA, UNSPECIFIED (11) Hypokalemia Code(s): E87.6 - HYPOKALEMIA (12) Hypoxia Code(s): R09.02 - HYPOXEMIA (13) Lumbar radiculopathy, chronic Code(s): M54.16 - RADICULOPATHY, LUMBAR REGION (14) NSTEMI (non-ST elevated myocardial infarction) Code(s): I21.4 - NON-ST ELEVATION (NSTEMI) MYOCARDIAL INFARCTION (15) Obesity (BMI 30.0-34.9) Code(s): E66.9 - OBESITY, UNSPECIFIED (16) Presence of drug-eluting stent in right coronary artery Code(s): Z95.5 - PRESENCE OF CORONARY ANGIOPLASTY IMPLANT AND GRAFT (17) Sciatica Code(s): M54.30 - SCIATICA, UNSPECIFIED SIDE Qualifiers: Laterality: right Qualified Code(s): M54.31 - Sciatica, right side (18) Shingles (herpes zoster) polyneuropathy Code(s): B02.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 (19) Sleep apnea Code(s): G47.30 - SLEEP APNEA, UNSPECIFIED Qualifiers: Sleep apnea type: obstructive Qualified Code(s): G47.33 - Obstructive sleep apnea (adult) (pediatric) (20) Syncope Code(s): R55 - SYNCOPE AND COLLAPSE Assessment/Plan (1) S/P TURP Code(s): Z90.79 - ACQUIRED ABSENCE OF OTHER GENITAL ORGAN(S) (2) Sepsis Code(s): A41.9 - SEPSIS, UNSPECIFIED ORGANISM Qualifiers: Sepsis type: sepsis due to unspecified organism Sepsis acute organ dysfunction status: unspecified Qualified Code(s): A41.9 - Sepsis, unspecified organism (3) UTI (urinary tract infection) Code(s): N39.0 - URINARY TRACT INFECTION, SITE NOT SPECIFIED Qualifiers: Urinary tract infection type: acute cystitis Hematuria presence: with hematuria Qualified Code(s): N30.01 - Acute cystitis with hematuria (4) H/O Acute ID, inferior wall ID S/P Stent Code(s): I21.19 - STEMI INVOLVING OTH CORONARY ARTERY OF INFERIOR WALL (5) Acute exacerbation of chronic obstructive pulmonary disease (COPD) Code(s): J44.1 - CHRONIC OBSTRUCTIVE PULMONARY DISEASE W (ACUTE) EXACERBATION (6) COPD (chronic obstructive pulmonary disease) with acute bronchitis Code(s): J44.0 - CHR OBSTRUCTIVE PULMON DISEASE WITH (ACUTE) LOWER RESP INFCT; J20.9 - ACUTE BRONCHITIS, UNSPECIFIED (7) Calcaneal spur, right foot Code(s): M77.31 - CALCANEAL SPUR, RIGHT FOOT (8) Coronary artery disease Code(s): I25.10 - ATHSCL HEART DISEASE OF [place] CORONARY ARTERY W/O ANG PCTRS Qualifiers: Coronary Disease-Associated Artery/Lesion type: [place] artery [place] vs. transplanted heart: [place] heart Associated angina: without angina Qualified Code(s): I25.10 - Atherosclerotic heart disease of [place] coronary artery without angina pectoris (9) HLD (hyperlipidemia) Code(s): E78.5 - HYPERLIPIDEMIA, UNSPECIFIED Qualifiers: Hyperlipidemia type: pure hypercholesterolemia Qualified Code(s): E78.00 - Pure hypercholesterolemia, unspecified; E78.0 - Pure hypercholesterolemia (10) Hypercholesterolemia Code(s): E78.00 - PURE HYPERCHOLESTEROLEMIA, UNSPECIFIED (11) Hypokalemia Code(s): E87.6 - HYPOKALEMIA (12) Hypoxia Code(s): R09.02 - HYPOXEMIA (13) Lumbar radiculopathy, chronic Code(s): M54.16 - RADICULOPATHY, LUMBAR REGION (14) NSTEMI (non-ST elevated myocardial infarction) Code(s): I21.4 - NON-ST ELEVATION (NSTEMI) MYOCARDIAL INFARCTION (15) Obesity (BMI 30.0-34.9) Code(s): E66.9 - OBESITY, UNSPECIFIED (16) Presence of drug-eluting stent in right coronary artery Code(s): Z95.5 - PRESENCE OF CORONARY ANGIOPLASTY IMPLANT AND GRAFT (17) Sciatica Code(s): M54.30 - SCIATICA, UNSPECIFIED SIDE Qualifiers: Laterality: right Qualified Code(s): M54.31 - Sciatica, right side (18) Shingles (herpes zoster) polyneuropathy Code(s): B02.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 (19) Sleep apnea : at Home BIPAP Pt refused here Code(s): G47.30 - SLEEP APNEA, UNSPECIFIED Qualifiers: Sleep apnea type: obstructive Qualified Code(s): G47.33 - Obstructive sleep apnea (adult) (pediatric) (20) Syncope Code(s): R55 - SYNCOPE AND COLLAPSE Pt had CT Abd /Pelvis No Perforation of Bladder/ No collection of any pelvic Fluid Case Discussed with Dr Kendall and Communicated with Dr Kimberlee Anderson was Conveyed of the findings also by message Pt had low grade fever Yesterday Pt had 0ne unit of PRBC yesterday No SOB No Chest pain Hypokalemia Being corrected Cardiology and Id FU noted Pt wanted to go home Advised about risk/Complications by me and Urology also
--- NOTE | 2020-03-11 14:33 | PN ---
Progress Note, Physician History of Present Illness: Pt seen and examined at bedside. he is awake and alert. he denies shortness of breath. - Current Medication List Current Medications: Active Medications Acetaminophen (Tylenol -) 325 mg PO Q4H PRN PRN Reason: PAIN LEVEL 5-10 Stop: 03/12/20 03:59 Acetaminophen (Tylenol -) 650 mg PO TID [facility] Last Admin: 03/11/20 06:45 Dose: 650 mg Documented by: Albuterol Sulfate (Ventolin Hfa Inhaler -) 2 puff IH Q6H PRN PRN Reason: SHORTNESS OF BREATH Ascorbic Acid (Vitamin C -) 500 mg PO BID [facility] Last Admin: 03/11/20 09:22 Dose: 500 mg Documented by: Aspirin (Asa -) 81 mg PO DAILY [facility] Atorvastatin Calcium (Lipitor -) 80 mg PO HS [facility] Last Admin: 03/10/20 21:50 Dose: 80 mg Documented by: Carvedilol (Coreg -) 25 mg PO BID [facility] Last Admin: 03/11/20 09:21 Dose: 25 mg Documented by: Gabapentin (Neurontin -) 400 mg PO Q12H PRN PRN Reason: PAIN Potassium Chloride/Sodium Chloride (1/2ns+20meq Kcl) 20 meq in 1,000 mls @ 50 mls/hr IV ASDIR [facility] Last Admin: 03/10/20 15:30 Dose: 50 mls/hr Documented by: Meropenem 1 gm/ Dextrose 100 mls @ 200 mls/hr IVPB Q8H-IV [facility] Last Admin: 03/11/20 09:22 Dose: 200 mls/hr Documented by: Losartan Potassium (Cozaar -) 50 mg PO DAILY [facility] Last Admin: 03/11/20 09:22 Dose: 50 mg Documented by: Oxycodone HCl (Roxicodone -) 5 mg PO Q4H PRN PRN Reason: PAIN LEVEL 5-10 Potassium Chloride (K-Dur -) 40 meq PO DAILY [facility] Potassium Chloride (K-Dur -) 40 meq PO BID [facility] Stop: 03/11/20 18:01 Last Admin: 03/11/20 09:21 Dose: 40 meq Documented by: Tamsulosin HCl (Flomax -) 0.8 mg PO 0830 [facility] Last Admin: 03/11/20 09:21 Dose: 0.8 mg Documented by: Torsemide (Demadex -) 20 mg PO DAILY [facility] Last Admin: 03/11/20 09:22 Dose: 20 mg Documented by: Umeclidinium/Vilanterol (Anoro Ellipta 62.5-25 Mcg Inh) 1 puff IH DAILY [facility] Last Admin: 03/11/20 09:28 Dose: 1 puff Documented by: Zinc Sulfate (Orazinc -) 220 mg PO BID [facility] Last Admin: 03/11/20 09:21 Dose: 220 mg Documented by: - Objective Vital Signs: Vital Signs Temperature 98.1 F 03/11/20 09:00 Pulse Rate 73 03/11/20 09:00 Respiratory Rate 22 H 03/11/20 09:00 Blood Pressure 141/58 L 03/11/20 09:00 O2 Sat by Pulse Oximetry (%) 95 03/11/20 09:00 Constitutional: Yes: Calm Eyes: Yes: Conjunctiva Clear HENT: Yes: Atraumatic Cardiovascular: Yes: S1, S2 Respiratory: Yes: CTA Bilaterally Gastrointestinal: Yes: Soft Genitourinary: Yes: Dove Present Musculoskeletal: Yes: WNL Edema: Yes Edema: LLE: 1+, RLE: 1+ Neurological: Yes: Oriented Psychiatric: Yes: Oriented Labs: CBC, BMP 03/11/20 10:30 03/11/20 06:29 INR, PTT INR 1.07 (0.83-1.09) 03/10/20 05:35 Problem List - Problems (1) BILL (acute kidney injury) Code(s): N17.9 - ACUTE KIDNEY FAILURE, UNSPECIFIED (2) S/P TURP Code(s): Z90.79 - ACQUIRED ABSENCE OF OTHER GENITAL ORGAN(S) (3) Sepsis Code(s): A41.9 - SEPSIS, UNSPECIFIED ORGANISM Qualifiers: Sepsis type: sepsis due to unspecified organism Sepsis acute organ dysfunction status: unspecified Qualified Code(s): A41.9 - Sepsis, unspecified organism (4) UTI (urinary tract infection) Code(s): N39.0 - URINARY TRACT INFECTION, SITE NOT SPECIFIED Qualifiers: Urinary tract infection type: acute cystitis Hematuria presence: with hematuria Qualified Code(s): N30.01 - Acute cystitis with hematuria Assessment/Plan Current Medications Generic Name Dose Route Start Last Admin Trade Name Freq PRN Reason Stop Dose Admin Acetaminophen 325 mg 03/10/20 12:40 Tylenol - PO 03/12/20 03:59 Q4H PRN PAIN LEVEL 5-10 Acetaminophen 650 mg 03/10/20 15:00 03/11/20 06:45 Tylenol - PO 650 mg TID [facility] Administration Albuterol Sulfate 2 puff 03/10/20 12:40 Ventolin Hfa Inhaler - IH Q6H PRN SHORTNESS OF BREATH Ascorbic Acid 500 mg 03/11/20 10:00 03/11/20 09:22 Vitamin C - PO 500 mg BID [facility] Administration Aspirin 81 mg 03/11/20 10:00 Asa - PO DAILY [facility] Atorvastatin Calcium 80 mg 03/10/20 22:00 03/10/20 21:50 Lipitor - PO 80 mg HS [facility] Administration Carvedilol 25 mg 03/10/20 22:00 03/11/20 09:21 Coreg - PO 25 mg BID [facility] Administration Gabapentin 400 mg 03/10/20 12:40 Neurontin - PO Q12H PRN PAIN Potassium Chloride/Sodium Chloride 20 meq in 1,000 mls @ 50 mls/hr 03/10/20 12:40 03/10/20 15:30 1/2ns+20meq Kcl IV 50 mls/hr ASDIR [facility] Administration Meropenem 1 gm/ Dextrose 100 mls @ 200 mls/hr 03/10/20 18:00 03/11/20 09:22 IVPB 200 mls/hr Q8H-IV [facility] Administration Losartan Potassium 50 mg 03/11/20 10:00 03/11/20 09:22 Cozaar - PO 50 mg DAILY [facility] Administration Oxycodone HCl 5 mg 03/10/20 12:40 Roxicodone - PO Q4H PRN PAIN LEVEL 5-10 Potassium Chloride 40 meq 03/11/20 10:00 K-Dur - PO DAILY [facility] Potassium Chloride 40 meq 03/11/20 09:15 03/11/20 09:21 K-Dur - PO 03/11/20 18:01 40 meq BID [facility] Administration Tamsulosin HCl 0.8 mg 03/11/20 08:30 03/11/20 09:21 Flomax - PO 0.8 mg 0830 [facility] Administration Torsemide 20 mg 03/11/20 10:00 03/11/20 09:22 Demadex - PO 20 mg DAILY [facility] Administration Umeclidinium/Vilanterol 1 puff 03/11/20 10:00 03/11/20 09:28 Anoro Ellipta 62.5-25 Mcg Inh IH 1 puff DAILY [facility] Administration Zinc Sulfate 220 mg 03/11/20 10:00 03/11/20 09:21 Orazinc - PO 220 mg BID [facility] Administration Impression 1. BILL 2. sepsis 3. hx PE 4. pulm fibrosis 5. s/p TURP 6. copd 7. cad 8. right renal simple cyst Plan - d/c fluids - replace potassium - monitor output - bp improved - cont losartan - hold amlodipine - renal function stabilizing, will monitor
--- NOTE | 2020-03-11 15:23 | PN ---
Progress Note (short form) - Note Progress Note: OOB to chair on RA. No CP or SOB. No acute events overnight. Intake & Output 03/08/20 03/09/20 03/10/20 03/11/20 23:59 23:59 23:59 23:59 Intake Total 3455 02111 2450 1151 Output Total 4900 71328 2500 2750 Balance -1445 Last Vital Signs Temp Pulse Resp BP Pulse Ox 98.6 F 69 22 H 154/70 95 03/11/20 14:00 03/11/20 14:00 03/11/20 09:00 03/11/20 14:00 03/11/20 09:00 Active Medications Acetaminophen (Tylenol -) 325 mg PO Q4H PRN PRN Reason: PAIN LEVEL 5-10 Stop: 03/12/20 03:59 Acetaminophen (Tylenol -) 650 mg PO TID [facility] Last Admin: 03/11/20 15:08 Dose: 650 mg Documented by: Albuterol Sulfate (Ventolin Hfa Inhaler -) 2 puff IH Q6H PRN PRN Reason: SHORTNESS OF BREATH Ascorbic Acid (Vitamin C -) 500 mg PO BID [facility] Last Admin: 03/11/20 09:22 Dose: 500 mg Documented by: Aspirin (Asa -) 81 mg PO DAILY [facility] Atorvastatin Calcium (Lipitor -) 80 mg PO HS [facility] Last Admin: 03/10/20 21:50 Dose: 80 mg Documented by: Carvedilol (Coreg -) 25 mg PO BID [facility] Last Admin: 03/11/20 09:21 Dose: 25 mg Documented by: Gabapentin (Neurontin -) 400 mg PO Q12H PRN PRN Reason: PAIN Meropenem 1 gm/ Dextrose 100 mls @ 200 mls/hr IVPB Q8H-IV [facility] Last Admin: 03/11/20 09:22 Dose: 200 mls/hr Documented by: Losartan Potassium (Cozaar -) 50 mg PO DAILY [facility] Last Admin: 03/11/20 09:22 Dose: 50 mg Documented by: Oxycodone HCl (Roxicodone -) 5 mg PO Q4H PRN PRN Reason: PAIN LEVEL 5-10 Potassium Chloride (K-Dur -) 40 meq PO DAILY [facility] Last Admin: 03/11/20 14:00 Dose: 40 meq Documented by: Potassium Chloride (K-Dur -) 40 meq PO BID [facility] Stop: 03/11/20 18:01 Last Admin: 03/11/20 09:21 Dose: 40 meq Documented by: Tamsulosin HCl (Flomax -) 0.8 mg PO 30 [facility] Last Admin: 03/11/20 09:21 Dose: 0.8 mg Documented by: Torsemide (Demadex -) 20 mg PO DAILY [facility] Last Admin: 03/11/20 09:22 Dose: 20 mg Documented by: Umeclidinium/Vilanterol (Anoro Ellipta 62.5-25 Mcg Inh) 1 puff IH DAILY [facility] Last Admin: 03/11/20 09:28 Dose: 1 puff Documented by: Zinc Sulfate (Orazinc -) 220 mg PO BID [facility] Last Admin: 03/11/20 09:21 Dose: 220 mg Documented by: Physical Exam: Constitutional: Well-developed, well-nourished, NAD Head: Normocephalic. No obvious external signs of trauma. Eyes: Sclerae white. Ears: Hearing grossly intact. Nose: No nasal discharge. Neck: Supple, trachea is midline. Cardiovascular: S1S2 Respiratory: Clear bilaterally, diminished at the bases Gastrointestinal: soft, (+) BS, minimal tenderness over the suprapubic area, No rebound or guarding. Neuro: Alert and oriented. Non-focal Skin: Warm and dry. Psych: Affect: appropriate. Mood: normal. Male : Dove catheter in place. Laboratory Results - last 24 hr 03/10/20 03/10/20 03/10/20 05:35 09:00 18:00 WBC Corrected WBC (auto) RBC Hgb Hct MCV MCH MCHC RDW Plt Count MPV Absolute Neuts (auto) Neutrophils % Neutrophils % (Manual) Band Neutrophils % Lymphocytes % Lymphocytes % (Manual) Monocytes % Monocytes % (Manual) Eosinophils % Eosinophils % (Manual) Basophils % Basophils % (Manual) Myelocytes % (Man) Promyelocytes % (Man) Blast Cells % (Manual) Nucleated RBC % Metamyelocytes Hypochromia Platelet Estimate Platelet Comment Polychromasia Poikilocytosis Anisocytosis Microcytosis Macrocytosis Sodium 140 Potassium 3.4 L Chloride 104 Carbon Dioxide 30 Anion Gap 6 L BUN 27.4 H Creatinine 1.3 Est GFR (CKD-EPI)AfAm 61.86 Est GFR (CKD-EPI)NonAf 53.37 Random Glucose 161 H Lactic Acid 2.2 H* Calcium 8.5 Magnesium 2.4 Total Bilirubin 0.6 AST 11 L ALT 24 Alkaline Phosphatase 54 C-Reactive Protein B-Natriuretic Peptide 1068.0 H Cancelled Total Protein 6.0 L Albumin 2.9 L Blood Type Antibody Screen Crossmatch 03/10/20 03/11/20 03/11/20 18:00 06:29 06:29 WBC 8.9 Corrected WBC (auto) RBC 3.24 L Hgb 9.1 L Hct 27.3 L MCV 84.3 MCH 28.2 MCHC 33.4 RDW 15.6 Plt Count 226 MPV 7.7 Absolute Neuts (auto) Neutrophils % Neutrophils % (Manual) 87.0 H Band Neutrophils % 0.0 Lymphocytes % Lymphocytes % (Manual) 9.0 Monocytes % Monocytes % (Manual) 1 L Eosinophils % Eosinophils % (Manual) 2.0 Basophils % Basophils % (Manual) 1.0 Myelocytes % (Man) 0 Promyelocytes % (Man) 0 Blast Cells % (Manual) 0 Nucleated RBC % 0 Metamyelocytes 0 Hypochromia 0 Platelet Estimate Normal Platelet Comment Polychromasia 0 Poikilocytosis 0 Anisocytosis 1+ Microcytosis 1+ Macrocytosis 0 Sodium 144 Potassium 2.9 L* Chloride 104 Carbon Dioxide 32 Anion Gap 8 BUN 24.9 H Creatinine 1.1 Est GFR (CKD-EPI)AfAm 75.71 Est GFR (CKD-EPI)NonAf 65.32 Random Glucose 184 H Lactic Acid Calcium 8.0 L Magnesium Total Bilirubin AST ALT Alkaline Phosphatase C-Reactive Protein B-Natriuretic Peptide 1370.1 H Total Protein Albumin Blood Type A POSITIVE Antibody Screen Negative Crossmatch See Detail 03/11/20 03/11/20 06:29 10:30 WBC Cancelled Corrected WBC (auto) Cancelled RBC Cancelled Hgb Cancelled Hct Cancelled MCV Cancelled MCH Cancelled MCHC Cancelled RDW Cancelled Plt Count Cancelled MPV Cancelled Absolute Neuts (auto) Cancelled Neutrophils % Cancelled Neutrophils % (Manual) Band Neutrophils % Lymphocytes % Cancelled Lymphocytes % (Manual) Monocytes % Cancelled Monocytes % (Manual) Eosinophils % Cancelled Eosinophils % (Manual) Basophils % Cancelled Basophils % (Manual) Myelocytes % (Man) Promyelocytes % (Man) Blast Cells % (Manual) Nucleated RBC % Cancelled Metamyelocytes Hypochromia Platelet Estimate Cancelled Platelet Comment Cancelled Polychromasia Poikilocytosis Anisocytosis Microcytosis Macrocytosis Sodium Potassium Chloride Carbon Dioxide Anion Gap BUN Creatinine Est GFR (CKD-EPI)AfAm Est GFR (CKD-EPI)NonAf Random Glucose Lactic Acid Calcium Magnesium Total Bilirubin AST ALT Alkaline Phosphatase C-Reactive Protein 5.8 H B-Natriuretic Peptide Total Protein Albumin Blood Type Antibody Screen Crossmatch ASSESSMENT / PLAN: Resolved Hypotension due to Hypovolemia Low clinical suspicion of Sepsis at this point Hypertension Hyperlipidemia CAD s/p stent in 2018 at [facility] COPD Hx of PE BPH S/p TURP 02/23/2020 Normal transfusion thresholds ABX per ID Supplemental O2 as needed BD TX PRN No indication for systemic steroids Will need [facility] re-evaluation after discharge Dr Ambrosio
--- NOTE | 2020-03-11 17:07 | OP ---
DATE OF OPERATION: 03/10/2020 SURGEON: Victorino Navarro MD FINDINGS: Two bladder defects behind the trigone in the midline. PREOPERATIVE DIAGNOSIS: Gross hematuria. POSTOPERATIVE DIAGNOSIS: Gross hematuria. PROCEDURE: Cystoscopy, evacuation of clot, and fulguration of bladder bleeding. DRAINS: Dove catheter, 24-[place] 3-way. SPECIMENS: None. ESTIMATED BLOOD LOSS: 100 mL. PREOPERATIVE INDICATIONS: The patient underwent a TURP on February 23, 2020. He was readmitted on March 03 with gross hematuria, UTI, and sepsis. Attempts at irrigating his bladder out at bedside were intermittently successful; however, the catheter continued to clot. He also dropped his hemoglobin to 7. He comes to the OR today for cystoscopy. DESCRIPTION OF PROCEDURE: The patient is brought to the OR, placed on the table in the supine position. He was sat up, given a spinal anesthetic, and placed in the modified lithotomy position. The groin was prepped and draped sterilely, and timeout was performed. Cystoscopy was then performed. The distal urethra appeared to be normal. The external urinary sphincter was also normal. The prostate, there was evidence of resection of the lateral lobes of the prostate. An undermining of the bladder neck was observed. The trigone itself appeared to be normal and intact. Both UOs were seen. However, behind the trigone in the midline there were 2 dissect areas of bladder defects where the fibrous tissue was observed. These areas were bleeding. After evacuation of clot with the [employer] evacuator, the areas of bleeding were fulgurated using the loop. All bleeding was controlled. The bladder was emptied. The belly itself was soft. These areas appeared to be retroperitoneal. At the end of the case there was no further bleeding. A 24-[place] 3-way Dove catheter was placed with clear output, and the irrigating port was plugged. The patient was then transferred to the recovery room. VICTORINO NAVARRO M.D. [id number]
[2020-03-11] MEDS: SODIUM CHLORIDE 0.45%/POT 20 MEQ/1,000 ML INFUS.BAG IV SCH (21:29)
[2020-03-11] MEDS: ERTAPENEM SODIUM 1 GM in SODIUM CHLORIDE 50 ML IVPB SCH (21:30)
[2020-03-11] MEDS: ATORVASTATIN CA 80 MG TABLET (FP) PO SCH (21:36)
[2020-03-12] MEDS ORDERED: MEROPENEM 1 GM VIAL (RESTRICTED TO ID) IVPB ONE ×2 (02:16→09:15)
[2020-03-12] MEDS ORDERED: DEXTROSE 5%-WATER 100 ML IVPB ONE ×2 (02:17→09:15)
[2020-03-12] MEDS: MEROPENEM 1 GM in DEXTROSE 5%-WATER 100 ML IVPB SCH ×2 (02:51→09:27)
[2020-03-12] MEDS: ACETAMINOPHEN 325 MG TABLET (FP) PO SCH ×2 (05:50→16:19)
--- NOTE | 2020-03-12 06:55 | PN ---
Progress Note, Physician Chief Complaint: s/p cystoscopy evacuation of clots under spinal anesthesia History of Present Illness: post op day one - Current Medication List Current Medications: Active Medications Acetaminophen (Tylenol -) 650 mg PO TID [facility] Last Admin: 03/12/20 05:50 Dose: 650 mg Documented by: Albuterol Sulfate (Ventolin Hfa Inhaler -) 2 puff IH Q6H PRN PRN Reason: SHORTNESS OF BREATH Ascorbic Acid (Vitamin C -) 500 mg PO BID [facility] Last Admin: 03/11/20 21:38 Dose: 500 mg Documented by: Aspirin (Asa -) 81 mg PO DAILY [facility] Atorvastatin Calcium (Lipitor -) 80 mg PO HS [facility] Last Admin: 03/11/20 21:36 Dose: 80 mg Documented by: Carvedilol (Coreg -) 25 mg PO BID [facility] Last Admin: 03/11/20 21:37 Dose: 25 mg Documented by: Gabapentin (Neurontin -) 400 mg PO Q12H PRN PRN Reason: PAIN Meropenem 1 gm/ Dextrose 100 mls @ 200 mls/hr IVPB Q8H-IV [facility] Last Admin: 03/12/20 02:51 Dose: 200 mls/hr Documented by: Losartan Potassium (Cozaar -) 50 mg PO DAILY [facility] Last Admin: 03/11/20 09:22 Dose: 50 mg Documented by: Oxycodone HCl (Roxicodone -) 5 mg PO Q4H PRN PRN Reason: PAIN LEVEL 5-10 Potassium Chloride (K-Dur -) 40 meq PO DAILY [facility] Last Admin: 03/11/20 14:00 Dose: 40 meq Documented by: Tamsulosin HCl (Flomax -) 0.8 mg PO 829 [facility] Last Admin: 03/11/20 09:21 Dose: 0.8 mg Documented by: Torsemide (Demadex -) 20 mg PO DAILY [facility] Last Admin: 03/11/20 09:22 Dose: 20 mg Documented by: Umeclidinium/Vilanterol (Anoro Ellipta 62.5-25 Mcg Inh) 1 puff IH DAILY [facility] Last Admin: 03/11/20 09:28 Dose: 1 puff Documented by: Zinc Sulfate (Orazinc -) 220 mg PO BID [facility] Last Admin: 03/11/20 21:37 Dose: 220 mg Documented by: - Objective Vital Signs: Vital Signs Temperature 98.8 F 03/12/20 05:49 Pulse Rate 79 03/12/20 05:49 Respiratory Rate 18 03/12/20 05:49 Blood Pressure 157/78 03/12/20 05:49 O2 Sat by Pulse Oximetry (%) 98 03/12/20 05:49 Constitutional: Yes: Well Nourished Cardiovascular: Yes: WNL Respiratory: Yes: WNL Gastrointestinal: Yes: WNL Labs: CBC, BMP 03/11/20 10:30 INR, PTT INR 1.07 (0.83-1.09) 03/10/20 05:35 Assessment/Plan No adverse effect of anesthetic, pain controlled. dept of anesthesiology will sign off care at this time
[2020-03-12 07:29] LABS: ALBUMIN 2.7 g/dl (3.4-5.0); BILIRUBIN,TOTAL 0.9 mg/dL (0.2-1); CALCIUM 8.1 mg/dL (8.5-10.1); POTASSIUM 3.1 mmol/L (3.5-5.1); TOT PROT 5.9 g/dl (6.4-8.2)
[2020-03-12] MEDS ORDERED: PT OWN MED DRAWER 7, Y5N ONE (09:15)
[2020-03-12] MEDS: POTASSIUM CHLORIDE TABS 20 MEQ TABLET.ER (FP) PO SCH (09:26)
[2020-03-12] MEDS: CARVEDILOL 25 MG TABLET (FP) PO SCH (09:27)
[2020-03-12] MEDS: UMECLIDINIUM/VILANTEROL (ANORO) 62.5/25 MCG INHALER IH SCH (09:27)
[2020-03-12] MEDS: ASCORBIC ACID 500 MG TABLET (FP) PO SCH (09:27)
[2020-03-12] MEDS: ZINC SULFATE 220 MG CAPSULE (FP) PO SCH (09:27)
[2020-03-12] MEDS: LOSARTAN POTASSIUM 50 MG TABLET (FP) PO SCH (09:27)
[2020-03-12] MEDS: TORSEMIDE 20 MG TABLET (FP) PO SCH (09:27)
[2020-03-12] MEDS: TAMSULOSIN HCL 0.4 MG CAP PO SCH (09:27)
--- NOTE | 2020-03-12 09:30 | PN ---
Progress Note (short form) - Note Progress Note: patient is comfortable urine is minimally tinged. abdomen is soft. change to leg bag. follow up as outpt. Problem List - Problems (1) BPH (benign prostatic hyperplasia) Assessment/Plan: follow up Code(s): N40.0 - BENIGN PROSTATIC HYPERPLASIA WITHOUT LOWER URINRY TRACT SYMP
--- NOTE | 2020-03-12 10:15 | PN ---
Progress Note (short form) - Note Progress Note: No acute cardiac events; norvasc held due to low BP; now BP OK Vital Signs Temperature 98.8 F 03/12/20 05:49 Pulse Rate 79 03/12/20 05:49 Respiratory Rate 18 03/12/20 05:49 Blood Pressure 157/78 03/12/20 05:49 O2 Sat by Pulse Oximetry (%) 98 03/12/20 05:49 Cardiovascular: Yes: Regular Rate and Rhythm Respiratory: Yes: Regular, CTA Bilaterally Gastrointestinal: Yes: Normal Bowel Sounds, Soft Edema: No Labs: CBC, BMP 03/11/20 10:30 03/12/20 05:55 Active Medications Acetaminophen (Tylenol -) 650 mg PO TID [facility] Last Admin: 03/12/20 05:50 Dose: 650 mg Documented by: Albuterol Sulfate (Ventolin Hfa Inhaler -) 2 puff IH Q6H PRN PRN Reason: SHORTNESS OF BREATH Ascorbic Acid (Vitamin C -) 500 mg PO BID [facility] Last Admin: 03/12/20 09:27 Dose: 500 mg Documented by: Aspirin (Asa -) 81 mg PO DAILY [facility] Atorvastatin Calcium (Lipitor -) 80 mg PO HS [facility] Last Admin: 03/11/20 21:36 Dose: 80 mg Documented by: Carvedilol (Coreg -) 25 mg PO BID [facility] Last Admin: 03/12/20 09:27 Dose: 25 mg Documented by: Gabapentin (Neurontin -) 400 mg PO Q12H PRN PRN Reason: PAIN Meropenem 1 gm/ Dextrose 100 mls @ 200 mls/hr IVPB Q8H-IV [facility] Last Admin: 03/12/20 09:27 Dose: 200 mls/hr Documented by: Losartan Potassium (Cozaar -) 50 mg PO DAILY [facility] Last Admin: 03/12/20 09:27 Dose: 50 mg Documented by: Oxycodone HCl (Roxicodone -) 5 mg PO Q4H PRN PRN Reason: PAIN LEVEL 5-10 Potassium Chloride (K-Dur -) 40 meq PO DAILY [facility] Last Admin: 03/12/20 09:26 Dose: 40 meq Documented by: Tamsulosin HCl (Flomax -) 0.8 mg PO 0830 [facility] Last Admin: 03/12/20 09:27 Dose: 0.8 mg Documented by: Torsemide (Demadex -) 20 mg PO DAILY [facility] Last Admin: 03/12/20 09:27 Dose: 20 mg Documented by: Umeclidinium/Vilanterol (Anoro Ellipta 62.5-25 Mcg Inh) 1 puff IH DAILY [facility] Last Admin: 03/12/20 09:27 Dose: 1 puff Documented by: Zinc Sulfate (Orazinc -) 220 mg PO BID [facility] Last Admin: 03/12/20 09:27 Dose: 220 mg Documented by: - ....Imaging EKG: Report Reviewed (Tele: NSR) Problem List - Problems (1) [id number] kidney injury Code(s): N17.9 - ACUTE KIDNEY FAILURE, UNSPECIFIED; N18.9 - CHRONIC KIDNEY DISEASE, UNSPECIFIED Qualifiers: Chronic kidney disease stage: stage 2 (mild) (2) BILL (acute kidney injury) Code(s): N17.9 - ACUTE KIDNEY FAILURE, UNSPECIFIED (3) S/P TURP Code(s): Z90.79 - ACQUIRED ABSENCE OF OTHER GENITAL ORGAN(S) (4) Sepsis Code(s): A41.9 - SEPSIS, UNSPECIFIED ORGANISM Qualifiers: Sepsis type: sepsis due to unspecified organism Sepsis acute organ dysfunction status: unspecified Qualified Code(s): A41.9 - Sepsis, unspecified organism (5) UTI (urinary tract infection) Code(s): N39.0 - URINARY TRACT INFECTION, SITE NOT SPECIFIED Qualifiers: Urinary tract infection type: acute cystitis Hematuria presence: with hematuria Qualified Code(s): N30.01 - Acute cystitis with hematuria (6) Coronary artery disease Code(s): I25.10 - ATHSCL HEART DISEASE OF [place] CORONARY ARTERY W/O ANG PCTRS Qualifiers: Coronary Disease-Associated Artery/Lesion type: [place] artery [place] vs. transplanted heart: [place] heart Associated angina: without angina Qualified Code(s): I25.10 - Atherosclerotic heart disease of [place] coronary artery without angina pectoris (7) HLD (hyperlipidemia) Code(s): E78.5 - HYPERLIPIDEMIA, UNSPECIFIED Qualifiers: Hyperlipidemia type: pure hypercholesterolemia Qualified Code(s): E78.00 - Pure hypercholesterolemia, unspecified; E78.0 - Pure hypercholesterolemia (8) Hypertensive heart disease Code(s): I11.9 - HYPERTENSIVE HEART DISEASE WITHOUT HEART FAILURE Qualifiers: Heart failure presence: without heart failure Qualified Code(s): I11.9 - Hypertensive heart disease without heart failure (9) Presence of drug-eluting stent in right coronary artery Code(s): Z95.5 - PRESENCE OF CORONARY ANGIOPLASTY IMPLANT AND GRAFT (10) Sleep apnea Code(s): G47.30 - SLEEP APNEA, UNSPECIFIED Qualifiers: Sleep apnea type: obstructive Qualified Code(s): G47.33 - Obstructive sleep apnea (adult) (pediatric) Assessment/Plan 05/20/2018 Nuc stress: Mod inferior ischemia with small infarct, LVEF 52% 05/20/2018 Echo: Normal LV size with mod cLVH, LVEF 55-60%, mild LAE, mod MR, tr TR 05/21/2018 LHC performed at [facility] [place]/NSTEMI and moderate inferior ischemia. 2 vessel CAD 90-95% ostial LCx-OM (medium sized vessel) left alone, 90-95% prox RCA which was treated with implant Resolute Bishop 4.0x18 mm FISH post- dilated with NC 4.5x15 balloon @ 14 SARAHY, normal LV fxn LVEF 65-70% with elevated LVEDP 27 mmHg, no aortic stenosis. Mynx deployed right [employer] access site, no complications. Recommend optimal medical therapy for secondary prevention of cardiovascular disease, consider PCI of LCx-OM if remains symptomatic despite meds, patient is candidate for cardiac rehab. 1. Sepsis source post TURP s/p cysto/evac clots/fulguration 2. COPD, pulm fibrosis 3. CAD s/p FISH RCA 4. Diastolic dysfunction 5. Type 2 DM 6. BILL (prerenal) with proteinuria improved 7. OSAS on cpap 8. Hypertensive heart disease 9. Hyperlipidemia 10 H/o PE PLAN: 1. Started On ASA 2. Continue Lipitor 80 qd 3. Continue Carvedilol 25 bid 4. Continue Cozaar 50 qd with close monitoring of renal function, dose titration as needed 5. Resume Norvasc if BP remains stable 6. Continue Demadex 20 qd and K-Dur supplementation, correction of potassium level
--- NOTE | 2020-03-12 12:43 | PN ---
Progress Note, Physician History of Present Illness: Pt is adament on going home Discussed with ID and Urology Discusseed with manager user interface On floor and ID For IV infusion and Home care services No Chest pain No SOB No Abd pain l - Current Medication List Current Medications: Active Medications Acetaminophen (Tylenol -) 650 mg PO TID [facility] Last Admin: 03/12/20 05:50 Dose: 650 mg Documented by: Albuterol Sulfate (Ventolin Hfa Inhaler -) 2 puff IH Q6H PRN PRN Reason: SHORTNESS OF BREATH Ascorbic Acid (Vitamin C -) 500 mg PO BID [facility] Last Admin: 03/12/20 09:27 Dose: 500 mg Documented by: Aspirin (Asa -) 81 mg PO DAILY [facility] Atorvastatin Calcium (Lipitor -) 80 mg PO HS [facility] Last Admin: 03/11/20 21:36 Dose: 80 mg Documented by: Carvedilol (Coreg -) 25 mg PO BID [facility] Last Admin: 03/12/20 09:27 Dose: 25 mg Documented by: Gabapentin (Neurontin -) 400 mg PO Q12H PRN PRN Reason: PAIN Meropenem 1 gm/ Dextrose 100 mls @ 200 mls/hr IVPB Q8H-IV [facility] Last Admin: 03/12/20 09:27 Dose: 200 mls/hr Documented by: Losartan Potassium (Cozaar -) 50 mg PO DAILY [facility] Last Admin: 03/12/20 09:27 Dose: 50 mg Documented by: Oxycodone HCl (Roxicodone -) 5 mg PO Q4H PRN PRN Reason: PAIN LEVEL 5-10 Potassium Chloride (K-Dur -) 40 meq PO DAILY [facility] Last Admin: 03/12/20 09:26 Dose: 40 meq Documented by: Tamsulosin HCl (Flomax -) 0.8 mg PO 30 [facility] Last Admin: 03/12/20 09:27 Dose: 0.8 mg Documented by: Torsemide (Demadex -) 20 mg PO DAILY [facility] Last Admin: 03/12/20 09:27 Dose: 20 mg Documented by: Umeclidinium/Vilanterol (Anoro Ellipta 62.5-25 Mcg Inh) 1 puff IH DAILY [facility] Last Admin: 03/12/20 09:27 Dose: 1 puff Documented by: Zinc Sulfate (Orazinc -) 220 mg PO BID [facility] Last Admin: 03/12/20 09:27 Dose: 220 mg Documented by: - Objective Vital Signs: Vital Signs Temperature 97.8 F 03/12/20 09:00 Pulse Rate 76 03/12/20 09:00 Respiratory Rate 18 03/12/20 09:00 Blood Pressure 182/84 H 03/12/20 09:00 O2 Sat by Pulse Oximetry (%) 99 03/12/20 09:00 Constitutional: Yes: No Distress Eyes: Yes: Conjunctiva Clear, EOM Intact HENT: Yes: Atraumatic, Normocephalic Neck: Yes: Supple, Trachea Midline Cardiovascular: Yes: Regular Rate and Rhythm, S1, S2 Respiratory: Yes: Regular, CTA Bilaterally Gastrointestinal: Yes: Normal Bowel Sounds, Soft Edema: No Peripheral Pulses WNL: Yes Labs: CBC, BMP 03/11/20 10:30 03/12/20 05:55 INR, PTT INR 1.07 (0.83-1.09) 03/10/20 05:35 Problem List - Problems (1) S/P TURP Code(s): Z90.79 - ACQUIRED ABSENCE OF OTHER GENITAL ORGAN(S) (2) Sepsis Code(s): A41.9 - SEPSIS, UNSPECIFIED ORGANISM Qualifiers: Sepsis type: sepsis due to unspecified organism Sepsis acute organ dysfunction status: unspecified Qualified Code(s): A41.9 - Sepsis, unspecified organism (3) UTI (urinary tract infection) Code(s): N39.0 - URINARY TRACT INFECTION, SITE NOT SPECIFIED Qualifiers: Urinary tract infection type: acute cystitis Hematuria presence: with hematuria Qualified Code(s): N30.01 - Acute cystitis with hematuria (4) Acute MD, inferior wall, initial episode of care Code(s): I21.19 - STEMI INVOLVING OTH CORONARY ARTERY OF INFERIOR WALL (5) Acute exacerbation of chronic obstructive pulmonary disease (COPD) Code(s): J44.1 - CHRONIC OBSTRUCTIVE PULMONARY DISEASE W (ACUTE) EXACERBATION (6) COPD (chronic obstructive pulmonary disease) with acute bronchitis Code(s): J44.0 - CHR OBSTRUCTIVE PULMON DISEASE WITH (ACUTE) LOWER RESP INFCT; J20.9 - ACUTE BRONCHITIS, UNSPECIFIED (7) Calcaneal spur, right foot Code(s): M77.31 - CALCANEAL SPUR, RIGHT FOOT (8) Coronary artery disease Code(s): I25.10 - ATHSCL HEART DISEASE OF [place] CORONARY ARTERY W/O ANG PCTRS Qualifiers: Coronary Disease-Associated Artery/Lesion type: [place] artery [place] vs. transplanted heart: [place] heart Associated angina: without angina Qualified Code(s): I25.10 - Atherosclerotic heart disease of [place] coronary artery without angina pectoris (9) HLD (hyperlipidemia) Code(s): E78.5 - HYPERLIPIDEMIA, UNSPECIFIED Qualifiers: Hyperlipidemia type: pure hypercholesterolemia Qualified Code(s): E78.00 - Pure hypercholesterolemia, unspecified; E78.0 - Pure hypercholesterolemia (10) Hypercholesterolemia Code(s): E78.00 - PURE HYPERCHOLESTEROLEMIA, UNSPECIFIED (11) Hypokalemia Code(s): E87.6 - HYPOKALEMIA (12) Hypoxia Code(s): R09.02 - HYPOXEMIA (13) Lumbar radiculopathy, chronic Code(s): M54.16 - RADICULOPATHY, LUMBAR REGION (14) NSTEMI (non-ST elevated myocardial infarction) Code(s): I21.4 - NON-ST ELEVATION (NSTEMI) MYOCARDIAL INFARCTION (15) Obesity (BMI 30.0-34.9) Code(s): E66.9 - OBESITY, UNSPECIFIED (16) Presence of drug-eluting stent in right coronary artery Code(s): Z95.5 - PRESENCE OF CORONARY ANGIOPLASTY IMPLANT AND GRAFT (17) Sciatica Code(s): M54.30 - SCIATICA, UNSPECIFIED SIDE Qualifiers: Laterality: right Qualified Code(s): M54.31 - Sciatica, right side (18) Shingles (herpes zoster) polyneuropathy Code(s): B02.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 (19) Sleep apnea Code(s): G47.30 - SLEEP APNEA, UNSPECIFIED Qualifiers: Sleep apnea type: obstructive Qualified Code(s): G47.33 - Obstructive sleep apnea (adult) (pediatric) (20) Syncope Code(s): R55 - SYNCOPE AND COLLAPSE Assessment/Plan (1) S/P TURP Code(s): Z90.79 - ACQUIRED ABSENCE OF OTHER GENITAL ORGAN(S) (2) Sepsis Code(s): A41.9 - SEPSIS, UNSPECIFIED ORGANISM Qualifiers: Sepsis type: sepsis due to unspecified organism Sepsis acute organ dysfunction status: unspecified Qualified Code(s): A41.9 - Sepsis, unspecified organism (3) UTI (urinary tract infection) Code(s): N39.0 - URINARY TRACT INFECTION, SITE NOT SPECIFIED Qualifiers: Urinary tract infection type: acute cystitis Hematuria presence: with hematuria Qualified Code(s): N30.01 - Acute cystitis with hematuria (4) H/O Acute MD, inferior wall MD S/P Stent Code(s): I21.19 - STEMI INVOLVING OTH CORONARY ARTERY OF INFERIOR WALL (5) Acute exacerbation of chronic obstructive pulmonary disease (COPD) Code(s): J44.1 - CHRONIC OBSTRUCTIVE PULMONARY DISEASE W (ACUTE) EXACERBATION (6) COPD (chronic obstructive pulmonary disease) with acute bronchitis Code(s): J44.0 - CHR OBSTRUCTIVE PULMON DISEASE WITH (ACUTE) LOWER RESP INFCT; J20.9 - ACUTE BRONCHITIS, UNSPECIFIED (7) Calcaneal spur, right foot Code(s): M77.31 - CALCANEAL SPUR, RIGHT FOOT (8) Coronary artery disease Code(s): I25.10 - ATHSCL HEART DISEASE OF [place] CORONARY ARTERY W/O ANG PCTRS Qualifiers: Coronary Disease-Associated Artery/Lesion type: [place] artery [place] vs. transplanted heart: [place] heart Associated angina: without angina Qualified Code(s): I25.10 - Atherosclerotic heart disease of [place] coronary artery without angina pectoris (9) HLD (hyperlipidemia) Code(s): E78.5 - HYPERLIPIDEMIA, UNSPECIFIED Qualifiers: Hyperlipidemia type: pure hypercholesterolemia Qualified Code(s): E78.00 - Pure hypercholesterolemia, unspecified; E78.0 - Pure hypercholesterolemia (10) Hypercholesterolemia Code(s): E78.00 - PURE HYPERCHOLESTEROLEMIA, UNSPECIFIED (11) Hypokalemia Code(s): E87.6 - HYPOKALEMIA (12) Hypoxia Code(s): R09.02 - HYPOXEMIA (13) Lumbar radiculopathy, chronic Code(s): M54.16 - RADICULOPATHY, LUMBAR REGION (14) NSTEMI (non-ST elevated myocardial infarction) Code(s): I21.4 - NON-ST ELEVATION (NSTEMI) MYOCARDIAL INFARCTION (15) Obesity (BMI 30.0-34.9) Code(s): E66.9 - OBESITY, UNSPECIFIED (16) Presence of drug-eluting stent in right coronary artery Code(s): Z95.5 - PRESENCE OF CORONARY ANGIOPLASTY IMPLANT AND GRAFT (17) Sciatica Code(s): M54.30 - SCIATICA, UNSPECIFIED SIDE Qualifiers: Laterality: right Qualified Code(s): M54.31 - Sciatica, right side (18) Shingles (herpes zoster) polyneuropathy Code(s): B02.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 (19) Sleep apnea : at Home BIPAP Pt refused here Code(s): G47.30 - SLEEP APNEA, UNSPECIFIED Qualifiers: Sleep apnea type: obstructive Qualified Code(s): G47.33 - Obstructive sleep apnea (adult) (pediatric) (20) Syncope Code(s): R55 - SYNCOPE AND COLLAPSE Pt was seen by Urology Dr Mohan Pt insists on Going home despite the fact the need of stay was well informed by Urology and ID also Pt is voiding well with aguilar catheter Discusseed with manager user interface On floor and ID For IV infusion and Home care services Pt all medications was discussed with patient and sent to his pharmacy Hypokalemia to supplement K
--- NOTE | 2020-03-12 12:57 | PN ---
Progress Note, Physician History of Present Illness: stable no new issues - Current Medication List Current Medications: Active Medications Acetaminophen (Tylenol -) 650 mg PO TID [facility] Last Admin: 03/12/20 05:50 Dose: 650 mg Documented by: Albuterol Sulfate (Ventolin Hfa Inhaler -) 2 puff IH Q6H PRN PRN Reason: SHORTNESS OF BREATH Ascorbic Acid (Vitamin C -) 500 mg PO BID [facility] Last Admin: 03/12/20 09:27 Dose: 500 mg Documented by: Aspirin (Asa -) 81 mg PO DAILY [facility] Atorvastatin Calcium (Lipitor -) 80 mg PO HS [facility] Last Admin: 03/11/20 21:36 Dose: 80 mg Documented by: Carvedilol (Coreg -) 25 mg PO BID [facility] Last Admin: 03/12/20 09:27 Dose: 25 mg Documented by: Gabapentin (Neurontin -) 400 mg PO Q12H PRN PRN Reason: PAIN Meropenem 1 gm/ Dextrose 100 mls @ 200 mls/hr IVPB Q8H-IV [facility] Last Admin: 03/12/20 09:27 Dose: 200 mls/hr Documented by: Losartan Potassium (Cozaar -) 50 mg PO DAILY [facility] Last Admin: 03/12/20 09:27 Dose: 50 mg Documented by: Oxycodone HCl (Roxicodone -) 5 mg PO Q4H PRN PRN Reason: PAIN LEVEL 5-10 Potassium Chloride (K-Dur -) 40 meq PO DAILY [facility] Last Admin: 03/12/20 09:26 Dose: 40 meq Documented by: Tamsulosin HCl (Flomax -) 0.8 mg PO 0830 [facility] Last Admin: 03/12/20 09:27 Dose: 0.8 mg Documented by: Torsemide (Demadex -) 20 mg PO DAILY [facility] Last Admin: 03/12/20 09:27 Dose: 20 mg Documented by: Umeclidinium/Vilanterol (Anoro Ellipta 62.5-25 Mcg Inh) 1 puff IH DAILY [facility] Last Admin: 03/12/20 09:27 Dose: 1 puff Documented by: Zinc Sulfate (Orazinc -) 220 mg PO BID [facility] Last Admin: 03/12/20 09:27 Dose: 220 mg Documented by: - Objective Vital Signs: Vital Signs Temperature 97.8 F 03/12/20 09:00 Pulse Rate 76 03/12/20 09:00 Respiratory Rate 18 03/12/20 09:00 Blood Pressure 182/84 H 03/12/20 09:00 O2 Sat by Pulse Oximetry (%) 99 03/12/20 09:00 Constitutional: Yes: No Distress, Calm Cardiovascular: Yes: S1, S2 Respiratory: Yes: Regular, CTA Bilaterally Gastrointestinal: Yes: Normal Bowel Sounds, Soft Genitourinary: Yes: Aguilar Present Musculoskeletal: Yes: WNL Extremities: Yes: Other Neurological: Yes: Alert, Oriented Psychiatric: Yes: Alert, Oriented Labs: CBC, BMP 03/11/20 10:30 03/12/20 05:55 INR, PTT INR 1.07 (0.83-1.09) 03/10/20 05:35 Assessment/Plan Problem List - Problems (1) BILL (acute kidney injury) Code(s): N17.9 - ACUTE KIDNEY FAILURE, UNSPECIFIED (2) S/P TURP Code(s): Z90.79 - ACQUIRED ABSENCE OF OTHER GENITAL ORGAN(S) (3) Sepsis Code(s): A41.9 - SEPSIS, UNSPECIFIED ORGANISM Qualifiers: Sepsis type: sepsis due to unspecified organism Sepsis acute organ dysfunction status: unspecified Qualified Code(s): A41.9 - Sepsis, unspecified organism (4) UTI (urinary tract infection) Code(s): N39.0 - URINARY TRACT INFECTION, SITE NOT SPECIFIED Qualifiers: Urinary tract infection type: acute cystitis Hematuria presence: with hematuria Qualified Code(s): N30.01 - Acute cystitis with hematuria (5) BPH (benign prostatic hyperplasia) Code(s): N40.0 - BENIGN PROSTATIC HYPERPLASIA WITHOUT LOWER URINRY TRACT SYMP (6) HLD (hyperlipidemia) Code(s): E78.5 - HYPERLIPIDEMIA, UNSPECIFIED Qualifiers: Hyperlipidemia type: pure hypercholesterolemia Qualified Code(s): E78.00 - Pure hypercholesterolemia, unspecified; E78.0 - Pure hypercholesterolemia (7) Hypertensive heart disease Code(s): I11.9 - HYPERTENSIVE HEART DISEASE WITHOUT HEART FAILURE Qualifiers: Heart failure presence: without heart failure Qualified Code(s): I11.9 - Hypertensive heart disease without heart failure (8) Obesity (BMI 30.0-34.9) Code(s): E66.9 - OBESITY, UNSPECIFIED (9) Sleep apnea Code(s): G47.30 - SLEEP APNEA, UNSPECIFIED Qualifiers: Sleep apnea type: obstructive Qualified Code(s): G47.33 - Obstructive sleep apnea (adult) (pediatric) Assessment/Plan Sepsis Complicated UTI +hematuria/urinary retention - aguilar reinserted s/p TURP BILL BPH CAD COPD Hx of COVID-19 -- Urine Cx +E. coli, continue Ceftriaxone. Pt without rash/adverse reaction. continue current mgmt plan patient can be changed to ertapenam 1 gm daily for another 8 days rest as per urology
[2020-03-12] MEDS ORDERED: POTASSIUM CHLORIDE TABS 20 MEQ TABLET.ER (FP) PO ONE (14:48)
[2020-03-12] MEDS ORDERED: LOSARTAN POTASSIUM 50 MG TABLET (FP) PO ONE (14:53)
--- NOTE | 2020-03-12 14:53 | PN ---
Progress Note, Physician History of Present Illness: Pt seen and examined at bedside. He is awake and alert. - Current Medication List Current Medications: Active Medications Acetaminophen (Tylenol -) 650 mg PO TID [facility] Last Admin: 03/12/20 05:50 Dose: 650 mg Documented by: Albuterol Sulfate (Ventolin Hfa Inhaler -) 2 puff IH Q6H PRN PRN Reason: SHORTNESS OF BREATH Ascorbic Acid (Vitamin C -) 500 mg PO BID [facility] Last Admin: 03/12/20 09:27 Dose: 500 mg Documented by: Aspirin (Asa -) 81 mg PO DAILY [facility] Atorvastatin Calcium (Lipitor -) 80 mg PO HS [facility] Last Admin: 03/11/20 21:36 Dose: 80 mg Documented by: Carvedilol (Coreg -) 25 mg PO BID [facility] Last Admin: 03/12/20 09:27 Dose: 25 mg Documented by: Gabapentin (Neurontin -) 400 mg PO Q12H PRN PRN Reason: PAIN Meropenem 1 gm/ Dextrose 100 mls @ 200 mls/hr IVPB Q8H-IV [facility] Last Admin: 03/12/20 09:27 Dose: 200 mls/hr Documented by: Losartan Potassium (Cozaar -) 50 mg PO DAILY [facility] Last Admin: 03/12/20 09:27 Dose: 50 mg Documented by: Oxycodone HCl (Roxicodone -) 5 mg PO Q4H PRN PRN Reason: PAIN LEVEL 5-10 Potassium Chloride (K-Dur -) 40 meq PO DAILY [facility] Last Admin: 03/12/20 09:26 Dose: 40 meq Documented by: Potassium Chloride (K-Dur -) 40 meq PO ONCE ONE Stop: 03/12/20 14:49 Tamsulosin HCl (Flomax -) 0.8 mg PO 0830 [facility] Last Admin: 03/12/20 09:27 Dose: 0.8 mg Documented by: Torsemide (Demadex -) 20 mg PO DAILY [facility] Last Admin: 03/12/20 09:27 Dose: 20 mg Documented by: Umeclidinium/Vilanterol (Anoro Ellipta 62.5-25 Mcg Inh) 1 puff IH DAILY [facility] Last Admin: 03/12/20 09:27 Dose: 1 puff Documented by: Zinc Sulfate (Orazinc -) 220 mg PO BID [facility] Last Admin: 03/12/20 09:27 Dose: 220 mg Documented by: - Objective Vital Signs: Vital Signs Temperature 97.8 F 03/12/20 09:00 Pulse Rate 76 03/12/20 09:00 Respiratory Rate 18 03/12/20 09:00 Blood Pressure 182/84 H 03/12/20 09:00 O2 Sat by Pulse Oximetry (%) 99 03/12/20 09:00 Constitutional: Yes: Calm Eyes: Yes: Conjunctiva Clear HENT: Yes: Atraumatic Neck: Yes: Supple Cardiovascular: Yes: S1, S2 Respiratory: Yes: CTA Bilaterally Gastrointestinal: Yes: Normal Bowel Sounds, Soft Genitourinary: Yes: WNL Musculoskeletal: Yes: WNL Edema: Yes Edema: LLE: Trace, RLE: Trace Neurological: Yes: Oriented Psychiatric: Yes: Oriented Labs: CBC, BMP 03/11/20 10:30 03/12/20 05:55 INR, PTT INR 1.07 (0.83-1.09) 03/10/20 05:35 Problem List - Problems (1) BILL (acute kidney injury) Code(s): N17.9 - ACUTE KIDNEY FAILURE, UNSPECIFIED (2) S/P TURP Code(s): Z90.79 - ACQUIRED ABSENCE OF OTHER GENITAL ORGAN(S) (3) Sepsis Code(s): A41.9 - SEPSIS, UNSPECIFIED ORGANISM Qualifiers: Sepsis type: sepsis due to unspecified organism Sepsis acute organ dysfunction status: unspecified Qualified Code(s): A41.9 - Sepsis, unspecified organism (4) UTI (urinary tract infection) Code(s): N39.0 - URINARY TRACT INFECTION, SITE NOT SPECIFIED Qualifiers: Urinary tract infection type: acute cystitis Hematuria presence: with hematuria Qualified Code(s): N30.01 - Acute cystitis with hematuria Assessment/Plan Current Medications Generic Name Dose Route Start Last Admin Trade Name Freq PRN Reason Stop Dose Admin Acetaminophen 650 mg 03/10/20 15:00 03/12/20 05:50 Tylenol - PO 650 mg TID RYLAN Administration Albuterol Sulfate 2 puff 03/10/20 12:40 Ventolin Hfa Inhaler - IH Q6H PRN SHORTNESS OF BREATH Ascorbic Acid 500 mg 03/11/20 10:00 03/12/20 09:27 Vitamin C - PO 500 mg BID RYLAN Administration Aspirin 81 mg 03/11/20 10:00 Asa - PO DAILY RYLAN Atorvastatin Calcium 80 mg 03/10/20 22:00 03/11/20 21:36 Lipitor - PO 80 mg HS RYLAN Administration Carvedilol 25 mg 03/10/20 22:00 03/12/20 09:27 Coreg - PO 25 mg BID RYLAN Administration Gabapentin 400 mg 03/10/20 12:40 Neurontin - PO Q12H PRN PAIN Meropenem 1 gm/ Dextrose 100 mls @ 200 mls/hr 03/10/20 18:00 03/12/20 09:27 IVPB 200 mls/hr Q8H-IV RYLAN Administration Losartan Potassium 50 mg 03/11/20 10:00 03/12/20 09:27 Cozaar - PO 50 mg DAILY RYLAN Administration Oxycodone HCl 5 mg 03/10/20 12:40 Roxicodone - PO Q4H PRN PAIN LEVEL 5-10 Potassium Chloride 40 meq 03/11/20 10:00 03/12/20 09:26 K-Dur - PO 40 meq DAILY RYLAN Administration Potassium Chloride 40 meq 03/12/20 14:48 K-Dur - PO 03/12/20 14:49 ONCE ONE Tamsulosin HCl 0.8 mg 03/11/20 08:30 03/12/20 09:27 Flomax - PO 0.8 mg 0830 RYLAN Administration Torsemide 20 mg 03/11/20 10:00 03/12/20 09:27 Demadex - PO 20 mg DAILY RYLAN Administration Umeclidinium/Vilanterol 1 puff 03/11/20 10:00 03/12/20 09:27 Anoro Ellipta 62.5-25 Mcg Inh IH 1 puff DAILY RYLAN Administration Zinc Sulfate 220 mg 03/11/20 10:00 03/12/20 09:27 Orazinc - PO 220 mg BID RYLAN Administration Impression 1. BILL 2. sepsis 3. hx PE 4. pulm fibrosis 5. s/p TURP 6. copd 7. cad 8. right renal simple cyst Plan - will give a second dose of potassium - will need to monitor lytes as outpt - ID input appreciated - avoid nsaids - increase losartan to 100 mg - renal function stabilizing, will monitor
--- NOTE | 2020-03-12 15:46 | DS ---
Physical Examination Vital Signs: Vital Signs Temperature 97.8 F 03/12/20 09:00 Pulse Rate 76 03/12/20 09:00 Respiratory Rate 18 03/12/20 09:00 Blood Pressure 182/84 H 03/12/20 09:00 O2 Sat by Pulse Oximetry (%) 99 03/12/20 09:00 Constitutional: Yes: No Distress Eyes: Yes: Conjunctiva Clear, EOM Intact HENT: Yes: Atraumatic, Normocephalic Neck: Yes: Supple, Trachea Midline Cardiovascular: Yes: Regular Rate and Rhythm, S1, S2 Respiratory: Yes: Regular, CTA Bilaterally Gastrointestinal: Yes: Normal Bowel Sounds Edema: No Peripheral Pulses WNL: Yes Labs: CBC, BMP 03/11/20 10:30 03/12/20 05:55 Discharge Summary Problems reviewed: Yes Reason For Visit: UTI,SEPSIS,STATUS POST TRANSURETHRAL RESECTION OF Current Active Problems BILL (acute kidney injury) (Acute) Laige-fr-mtzvfga kidney injury (Acute) S/P TURP (Acute) Sepsis (Acute) UTI (urinary tract infection) (Acute) Hospital Course: 74 year old male with a past medical history of hypertension, hyperlipidemia, coronary artery disease s/p stent in 2018 at [facility], COPD, hx of PE, pulmonary fibrosis and BPH who had TURP by Dr. Jj 3 days ago here at [facility]. He has been taking Cipro for the past 7 days. He presents for evaluation of fever of 102, chills and generalized weakness. Cardiology By Dr Poon: 05/20/2018 Nuc stress: Mod inferior ischemia with small infarct, LVEF 52% 05/20/2018 Echo: Normal LV size with mod cLVH, LVEF 55-60%, mild LAE, mod MR, tr TR 05/21/2018 LHC performed at [facility] [place]/NSTEMI and moderate inferior ischemia. 2 vessel CAD 90-95% ostial LCx-OM (medium sized vessel) left alone, 90-95% prox RCA which was treated with implant Resolute Bishop 4.0x18 mm FISH post- dilated with NC 4.5x15 balloon @ 14 SARAHY, normal LV fxn LVEF 65-70% with elevated LVEDP 27 mmHg, no aortic stenosis. Mynx deployed right MANUAL PLATE FILLER access site, no complications. Recommend optimal medical therapy for secondary prevention of cardiovascular disease, consider PCI of LCx-OM if remains symptomatic despite m eds, patient is candidate for cardiac rehab. Nephrology for Renal failure: Dr Callahan: BILL/Hypokalemia ID: Dr Brennan Sepsis Complicated UTI +hematuria/urinary retention - aguilar reinserted s/p TURP BILL BPH CAD COPD Hx of COVID-19 -- Urine Cx +E. coli, continue Ceftriaxone. Pt without rash/adverse reaction. continue current mgmt plan patient can be changed to ertapenam 1 gm daily for another 8 days rest as per urology Health Concerns: Pt Need to FU with Urology Pt was madeaware of consequences of not FU Pt wanted to go home with catheter for his Marriage Anniversary Plan of Treatment: 1) Fu with Urology Dr Adam sutherland 2) FU with ID Dr Brennan 3) FY with PMD Dr Green Condition: Guarded - Instructions Referrals: Sebastian Arriaga MD [Primary Care Provider] - Disposition: VNS/HOME HEALTH CARE - Home Medications Comprehensive Discharge Medication List: Ambulatory Orders Aspirin [ASA -] 81 mg PO DAILY 11/05/18 Clopidogrel Bisulfate [Plavix] 75 mg PO DAILY 11/05/18 Potassium Chloride [Klor-Con M20] 20 meq PO DAILY 11/05/18 Tamsulosin HCl [Flomax] 0.8 mg PO DAILY 11/05/18 Albuterol Sulfate [Proair Hfa] 8.5 gm IH PRN 09/25/19 Amlodipine Besylate 5 mg PO BID 09/25/19 Atorvastatin Ca [Lipitor] 80 mg PO HS 09/25/19 Carvedilol [Coreg -] 12.5 mg PO BID 09/25/19 Gabapentin 400 mg PO PRN PRN 09/25/19 Losartan Potassium 25 mg PO DAILY 09/25/19 Torsemide 20 mg PO DAILY 09/25/19 Umeclidinium Brm/Vilanterol Tr [Anoro Ellipta 62.5-25 Mcg INH] 1 each IH DAILY 09/25/19
[2020-03-12 16:05] VITALS: BP 161/89; PULSE 73; TEMP 98.2
--- NOTE | 2020-03-12 19:54 | PATH ---
Surgical Pathology Report Patient Name: LUIS DANIEL MYERS Med. Rec. #: [id number] /Age/Gender: 1945 (Age: 74) / M Account: [id number] Location: [facility] TELEMETRY U Taken: 03/10/2020 Received: 03/10/2020 Reported: 03/12/2020 Physicians: Maricel Fernandez MD Specimen(s) Received CLOTS Clinical History Hematuria Final Diagnosis BLADDER, EVACUATED CLOT, CYSTOSCOPY, EVACUATION OF CLOTS, FULGURATION OF BLADDER BLEEDING: RARE UROTHELIAL CELLS EMBEDDED IN ABUNDANT BLOOD/FIBRIN CLOTS. Electronically Signed Sonal Nelson M.D. Gross Description Received in formalin labeled "evacuated clot," is a 12.0 x 9.0 x 1.0 cm aggregate of red-brown blood clot. No definitive soft tissue is identified. A traveling sales representative portion is submitted in 4 cassettes. /03/10/2020 saudi/03/10/2020
[2020-03-13] MEDS ORDERED: LOSARTAN POTASSIUM 50 MG TABLET (FP) PO SCH (10:00)
== END 2020-03-12 18:04 | disposition home health service (06) | DRG 856 ==
LOC: JER 19:53 → JERBED 22:55 → J5S 03-04 03:46 → J4W 03-09 13:44
PROVIDERS: ADMIT Internal Medicine; ATTEND Internal Medicine
PROC: 30233N1 Transfusion of Nonautologous Red Blood Cells into Peripheral Vein, Percutaneous Approach (ICD-10-PCS; 2020-03-09)
PROC: 0W3R8ZZ Control Bleeding in Genitourinary Tract, Via Natural or Artificial Opening Endoscopic (ICD-10-PCS; 2020-03-10)
PROC: 0TCB8ZZ Extirpation of Matter from Bladder, Via Natural or Artificial Opening Endoscopic (ICD-10-PCS; principal; 2020-03-10 09:00)
PROC: 02HV33Z Insertion of Infusion Device into Superior Vena Cava, Percutaneous Approach (ICD-10-PCS; 2020-03-12)
PROC: B518ZZA Fluoroscopy of Superior Vena Cava, Guidance (ICD-10-PCS; 2020-03-12)
DX: T81.44XA Sepsis following a procedure, initial encounter (principal); A41.51 Sepsis due to Escherichia coli [E. coli]; N17.9 Acute kidney failure, unspecified; N39.0 Urinary tract infection, site not specified; I25.10 Atherosclerotic heart disease of native coronary artery without angina pectoris; J44.9 Chronic obstructive pulmonary disease, unspecified; J84.10 Pulmonary fibrosis, unspecified; E78.5 Hyperlipidemia, unspecified; I12.9 Hypertensive chronic kidney disease with stage 1 through stage 4 chronic kidney disease, or unspecified chronic kidney disease; N18.9 Chronic kidney disease, unspecified; I10 Essential (primary) hypertension; N40.0 Benign prostatic hyperplasia without lower urinary tract symptoms; I34.1 Nonrheumatic mitral (valve) prolapse; K57.90 Diverticulosis of intestine, part unspecified, without perforation or abscess without bleeding; G62.9 Polyneuropathy, unspecified; M54.5 Low back pain; G47.33 Obstructive sleep apnea (adult) (pediatric); K21.9 Gastro-esophageal reflux disease without esophagitis; N28.1 Cyst of kidney, acquired; I11.9 Hypertensive heart disease without heart failure; M54.16 Radiculopathy, lumbar region; I95.9 Hypotension, unspecified; E66.9 Obesity, unspecified; G47.30 Sleep apnea, unspecified; Z68.29 Body mass index [BMI] 29.0-29.9, adult; Z86.711 Personal history of pulmonary embolism; Z95.5 Presence of coronary angioplasty implant and graft; Y83.8 Other surgical procedures as the cause of abnormal reaction of the patient, or of later complication, without mention of misadventure at the time of the procedure; R31.9 Hematuria, unspecified; E86.1 Hypovolemia
CPT/HCPCS: 36415; 36430; 36511; 36569; 71045-TC-FY; 74176-TC; 76775-TC; 77001-TC-FY; 80048; 80053; 81003; 82436; 82550; 82565; 83605; 83735; 83880; 84133; 84300; 84484; 85025; 85027; 85610; 85651; 85730; 86140; 86850; 86900; 86901; 86922; 87040; 87086; 87186; 88304-TC; 93005; 93010; 94760; 99285-25; C1751; J3480; P9038; P9058; Q9967; U0003

== ENCOUNTER 2020-03-30 22:37 | Inpatient (IN) | payer OTHER, BC ==
--- NOTE | 2020-03-30 22:56 | PDOC ---
History of Present Illness - General History Source: Patient Exam Limitations: No Limitations - History of Present Illness Initial Comments: 03/30/20 23:11 74 year old male with a past medical history of hypertension, hyperlipidemia, coronary artery disease s/p stent in 2018 at [facility], COPD, hx of PE, pulmonary fibrosis and BPH presenting w 4hr progressive worsening ABD distension, suprapubic pain, and blood around ureteral meatus and in catheter bag. Dr Navarro urology saw pt and placed aguilar this morning. 02/23/20 had TURP completed, 03/03 admitted for hematuria, UTI, sepsis, 03/10 redone cystoscopy, clot evacuation, fulguration of bladder bleeding of 2 bladder defects behind trigone in the midline for continued hematuria and UTI. Didnt take any meds for pain today. On aspirin and plavix, no AC. Pt denies fever, n/v, chest pain. <Alexandro Jean - Last Filed: 03/31/20 06:37> <Duncan Daniels - Last Filed: 03/31/20 09:38> - General Chief Complaint: Urinary Problem Stated Complaint: URINARY PROBLEM Time Seen by Provider: 03/30/20 22:56 Past History - Medical History Anemia: No Asthma: Yes Cancer: No Cardiac Disorders: Yes (MVP,STENT) CVA: No COPD: Yes CHF: No DVT: No Dementia: No Diabetes: No GI Disorders: Yes (DIVERTICULITIS,DIVERTICULOSIS,HEMORRHOIDS) Disorders: Yes (bph) HTN: Yes Hypercholesterolemia: Yes Liver Disease: No Seizures: No Thyroid Disease: No - Surgical History Abdominal Surgery: No Appendectomy: Yes (COLONOSCOPY) Cardiac Surgery: Yes (STENT) Cholecystectomy: No Lung Surgery: No Neurologic Surgery: No Orthopedic Surgery: No - Immunization History Immunization Up to Date: Yes - Psycho-Social/Smoking History Smoking History: Never smoked Have you smoked in the past 12 months: No - Substance Abuse Hx (Audit-C & DAST Scrn) How often the patient has a drink containing alcohol: Never Score: In Men: 4 or > Positive; In Women: 3 or > Positive: 0 Screen Result (Pos requires Nsg. Audit-10AR): Negative In the last yr the pt used illegal drug/Rx for NonMed reason: No Score: Yes response is considered Positive: 0 Screen Result (Positive result requires Nsg. DAST-10): Negative <Alexandro Jean - Last Filed: 03/31/20 06:37> <Duncan Daniels - Last Filed: 03/31/20 09:38> - Medical History Allergies/Adverse Reactions: Allergies Allergy/AdvReac Type Severity Reaction Status Date / Time codeine [Codeine] Allergy Verified 03/30/20 22:50 Penicillins Allergy Verified 03/30/20 22:50 Home Medications: Ambulatory Orders Aspirin [ASA -] 81 mg PO DAILY 11/05/18 Clopidogrel Bisulfate [Plavix] 75 mg PO DAILY 11/05/18 Potassium Chloride [Klor-Con M20] 20 meq PO DAILY 11/05/18 Tamsulosin HCl [Flomax] 0.8 mg PO DAILY 11/05/18 Albuterol Sulfate [Proair Hfa] 8.5 gm IH PRN 09/25/19 Amlodipine Besylate 5 mg PO BID 09/25/19 Atorvastatin Ca [Lipitor] 80 mg PO HS 09/25/19 Carvedilol [Coreg -] 12.5 mg PO BID 09/25/19 Gabapentin 400 mg PO PRN PRN 09/25/19 Losartan Potassium 25 mg PO DAILY 09/25/19 Torsemide 20 mg PO DAILY 09/25/19 Umeclidinium Brm/Vilanterol Tr [Anoro Ellipta 62.5-25 Mcg INH] 1 each IH DAILY 09/25/19 Review of Systems - Review of Systems Constitutional: No: Chills, Fever HEENTM: No: Eye Pain, Nose Pain Respiratory: No: Cough, Shortness of Breath Cardiac (ROS): No: Chest Pain, Lightheadedness ABD/GI: Yes: Abdominal Distended. No: Constipated, Diarrhea, Nausea, Vomiting : Yes: Dysuria, Hematuria. No: Burning Musculoskeletal: No: Back Pain, Joint Pain Integumentary: No: Bruising, Dryness Neurological: No: Headache, Seizure Psychiatric: No: Anxiety, Depression Endocrine: No: Intolerance to Cold, Intolerance to Heat Hematologic/Lymphatic: Yes: Blood Clots. No: Anemia <Alexandro Jean - Last Filed: 03/31/20 06:37> *Physical Exam - Vital Signs Last Vital Signs Temp Pulse Resp BP Pulse Ox 80 20 218/89 H 99 03/30/20 22:48 03/30/20 22:48 03/30/20 22:48 03/30/20 22:48 - Physical Exam General Appearance: Yes: Nourished, Appropriately Dressed, Mild Distress HEENT: positive: EOMI, GLENN, Normal Voice, Hearing Grossly Normal. negative: Scleral Icterus (R), Scleral Icterus (L) Respiratory/Chest: positive: Lungs Clear, Normal Breath Sounds. negative: Chest Tender, Respiratory Distress Cardiovascular: positive: Regular Rhythm, Regular Rate, S1, S2. negative: Edema, Murmur Gastrointestinal/Abdominal: positive: Normal Bowel Sounds, Soft, Distended (mild). negative: Tender Male Genitalia: positive: other (aguilar in place, gross blood/clots around ureteral meatus) Musculoskeletal: negative: CVA Tenderness (R), CVA Tenderness (L) Integumentary: positive: Normal Color, Warm Neurologic: positive: Fully Oriented, Alert, Normal Response <Alexandro Jean - Last Filed: 03/31/20 06:37> - Vital Signs Last Vital Signs Temp Pulse Resp BP Pulse Ox 98.4 F 80 20 171/59 H 95 03/31/20 06:35 03/31/20 08:38 03/31/20 08:38 03/31/20 08:38 03/31/20 08:43 <Duncan Daniels - Last Filed: 03/31/20 09:38> ED Treatment Course - LABORATORY CBC & Chemistry Diagram: 03/31/20 01:45 03/31/20 01:22 <Alexandro Jean - Last Filed: 03/31/20 06:37> - LABORATORY CBC & Chemistry Diagram: 03/31/20 01:45 03/31/20 01:22 - ADDITIONAL ORDERS Additional order review: Laboratory Results 03/31/20 03/31/20 03/31/20 06:09 01:45 01:22 PT with INR 12.30 INR 1.04 Sodium 139 Potassium 4.1 Chloride 107 Carbon Dioxide 26 Anion Gap 6 L BUN 24.1 H Creatinine 1.6 H Est GFR (CKD-EPI)AfAm 48.13 Est GFR (CKD-EPI)NonAf 41.53 Random Glucose 188 H Lactic Acid 1.2 Calcium 9.1 Total Bilirubin 0.6 AST 12 L ALT 17 Alkaline Phosphatase 78 Total Protein 6.8 Albumin 3.5 Urine Color Urine Appearance Urine pH Ur Specific [place] Urine Protein Urine Glucose (UA) Urine Ketones Urine Blood Urine Nitrite Urine Bilirubin Urine Urobilinogen Ur Leukocyte Esterase Urine WBC (Auto) Urine RBC (Auto) Urine Casts (Auto) U Epithel Cells (Auto) Urine Bacteria (Auto) 03/31/20 00:35 PT with INR INR Sodium Potassium Chloride Carbon Dioxide Anion Gap BUN Creatinine Est GFR (CKD-EPI)AfAm Est GFR (CKD-EPI)NonAf Random Glucose Lactic Acid Calcium Total Bilirubin AST ALT Alkaline Phosphatase Total Protein Albumin Urine Color Red Urine Appearance Cloudy Urine pH 7.5 D Ur Specific [place] 1.037 H Urine Protein 4+ H Urine Glucose (UA) Trace Urine Ketones Negative Urine Blood 3+ H Urine Nitrite Negative Urine Bilirubin Negative Urine Urobilinogen 0.2 Ur Leukocyte Esterase Negative Urine WBC (Auto) 1 Urine RBC (Auto) 82 Urine Casts (Auto) 0 U Epithel Cells (Auto) 23 Urine Bacteria (Auto) 3 03/31/20 01:45 RBC 3.46 L MCV 88.2 MCHC 32.7 RDW 17.0 H MPV 8.3 Neutrophils % 84.6 H D Lymphocytes % 8.4 D Monocytes % 6.2 Eosinophils % 0.6 D Basophils % 0.2 - Medications Given in the ED: ED Medications Discontinued Medications Generic Name Dose Route Start Last Admin Trade Name Aurelia PRN Reason Stop Dose Admin Acetaminophen 975 mg 03/31/20 00:40 03/31/20 00:58 Tylenol - PO 03/31/20 00:41 975 mg ONCE ONE Administration Acetaminophen 1,000 mg 03/31/20 04:05 03/31/20 04:26 Ofirmev Injection - IVPB 03/31/20 04:06 Not Given ONCE ONE Acetaminophen 1,000 mg 03/31/20 05:54 03/31/20 06:17 Ofirmev Injection - IVPB 03/31/20 05:55 1,000 mg ONCE ONE Administration Amlodipine Besylate 5 mg 03/31/20 05:49 03/31/20 06:43 Norvasc - PO 03/31/20 05:50 5 mg ONCE ONE Administration Carvedilol 12.5 mg 03/31/20 05:49 03/31/20 06:42 Coreg - PO 03/31/20 05:50 12.5 mg ONCE ONE Administration Meropenem 1 gm/ Dextrose 100 mls @ 200 mls/hr 03/31/20 05:45 03/31/20 06:42 IVPB 03/31/20 06:14 200 mls/hr ONCE ONE Administration Morphine Sulfate 4 mg 03/31/20 01:12 03/31/20 01:44 Morphine Injection - IVPUSH 03/31/20 01:13 4 mg ONCE ONE Administration Morphine Sulfate 4 mg 03/31/20 02:59 03/31/20 03:19 Morphine Injection - IVPUSH 03/31/20 03:00 4 mg ONCE ONE Administration Ondansetron HCl 4 mg 03/31/20 02:59 03/31/20 03:20 Zofran Injection IVPUSH 03/31/20 03:00 4 mg ONCE ONE Administration Phenazopyridine HCl 200 mg 03/31/20 00:41 03/31/20 00:58 Pyridium - PO 03/31/20 00:42 200 mg ONCE ONE Administration Sodium Chloride 1,000 ml 03/31/20 02:59 03/31/20 03:19 Normal Saline - IV 03/31/20 03:00 1,000 ml ONCE ONE Administration <Duncan Daniels - Last Filed: 03/31/20 09:38> Medical Decision Making - Critical Care Time Total Critical Care Time (minutes): 45 Critical Care Statement: The care of this patient involved high complexity decision making to prevent further life threatening deterioration of the patient's condition and/or to evaluate & treat vital organ system(s) failure or risk of failure. - Medical Decision Making 03/31/20 01:13 +4 protein/+3 blood WBC 13 w L shift, Cr 1.6 from 1.3 EKG - NSR, RBBB, HR 75, QTc 495, no ST changes --- 74 year old male with a past medical history of hypertension, hyperlipidemia, coronary artery disease s/p stent in 2018 at [facility], COPD, hx of PE, pulmonary fibrosis and BPH presenting w 4hr progressive worsening ABD distension, suprapubic pain, and gross blood with blood clots around ureteral me atus and in catheter bag. Hgb 10 at baseline, hemodynamically stable Likely 2/2 recent manipulation (multiple aguilar insertions, TURP, cystoscopy) vs bladder defect. Also has BILL Cr 1.6 from 1.3. Low concern for stone (no flank pain) vs UTI (minimal WBC/bacteria) Aguilar removed and replaced w gross hematuria. No post-void residual US. Pt continues to complain of suprapubic pain Given tylenol, 8 morphine, zofran, pyridium, 1L NS. Still complaining of pain at tip of penis. Gently irrigated aguilar catheter with similar return of grossly bloody fluid Consulted Dr Navarro urology regarding gross blood with blood clots around ureteral meatus and in catheter bag - external relations manager Dr Mota advised irrigate catheter, will evaluate inpatient Talked to PCP Dr Arriaga - order rest of sepsis workup inc lactic and CXR, 1/2 NS @60, meropenem, home amlodipine/carvedilol, admit to partner Dr Trejo/Lawrence lucas Admit m/s Dr Trejo for BILL, gross hematuria s/p urology procedures PCP Bart admit to [facility] <Alexandro Jean - Last Filed: 03/31/20 06:37> Discharge - Discharge Information Problems reviewed: Yes <Alexandro Jean - Last Filed: 03/31/20 06:37> - Discharge Information Problems reviewed: Yes - Admission Yes <Duncan Daniels - Last Filed: 03/31/20 09:38> - Discharge Information Clinical Impression/Diagnosis: BILL (acute kidney injury) Hematuria Qualifiers: Hematuria type: gross Qualified Code(s): R31.0 - Gross hematuria Condition: Fair - Follow up/Referral Referrals: Sebastian Arriaga MD [Primary Care Provider] - - Patient Discharge Instructions - Post Discharge Activity
--- NOTE | 2020-03-30 23:02 | PDOC ---
Documentation entered by Kelly Montilla SCRIBE, acting as scribe for Mel Gleason MD. Mel Gleason MD: This documentation has been prepared by the carineibe, Kelly Montilla SCRIBE, under my direction and personally reviewed by me in its entirety. I confirm that the documentation accurately reflects all work, treatment, procedures, and medical decision making performed by me. Attending Attestation - Resident Resident Name: Alexandro Jean - ED Attending Attestation I have performed the following: I have examined & evaluated the patient, The case was reviewed & discussed with the resident, I agree w/resident's findings & plan, Exceptions are as noted - HPI HPI: 03/30/20 22:56 Patient is a 74 year old male with a significant past medical history of hypertension, HLD, CAD (s/p cardiac stenting), COPD, PE, and pulmonary fibrosis who presents to the ED with with complaint of dysuria and suprapubic pain... Patient denies: Allergies: codeine, penicillins Past medical history of UTI, sepsis status post TURP for BPH earlier this year. 03/30/20 23:01 03/30/20 23:14 HPI Today he had his aguilar changed by Dr Richmond and for 2 hours prior to arrival he has been having suprapubic pain 03/31/20 01:23 - Physicial Exam PE: 03/30/20 23:23 wnwd 74 yo male p/w inability to urinate sinne having a new urinary aguilar placed head ncat neck supple lung cta b/l cvs [id number] abd protuberant distended bladder, blood around urethral meatus,aguilar in place skin warm and dry neuro axox4 03/31/20 01:24 - Medical Decision Making 03/31/20 01:25 plan cbc,comp,UA ,pain meds Discharge - Discharge Information Problems reviewed: Yes Clinical Impression/Diagnosis: BILL (acute kidney injury) Hematuria Qualifiers: Hematuria type: gross Qualified Code(s): R31.0 - Gross hematuria Condition: Stable Disposition: VNS/HOME HEALTH CARE - Follow up/Referral - Patient Discharge Instructions - Post Discharge Activity
[2020-03-31] MEDS ORDERED: ACETAMINOPHEN 500 MG TABLET (FP) PO ONE (00:40)
[2020-03-31] MEDS ORDERED: PHENAZOPYRIDINE HCL 100 MG TABLET (FP) PO ONE (00:41)
[2020-03-31] MEDS ORDERED: PHENAZOPYRIDINE HCL 100 MG TABLET (FP) ONE (00:46)
[2020-03-31] MEDS ORDERED: ACETAMINOPHEN 325 MG TABLET (FP) ONE (00:46)
[2020-03-31] MEDS ORDERED: morphine CARPU-JECT 4 MG/1 ML DISP.SYRIN IVPUSH ONE ×2 (01:12→02:59)
[2020-03-31] MEDS ORDERED: morphine SULFATE 4 MG/ML VIAL ONE ×2 (01:25→03:06)
[2020-03-31 01:45] LABS: EPI CELLS 23 /uL (0-25.1); HYALINE CASTS 0 /uL (0-3.1); PH,URINE 7.5 (5.0-8.0); URINE APPEARANCE CLOUDY; URINE BACTERIA 3 /uL (0-1359); URINE BILIRUBIN NEGATIVE (NEGATIVE); URINE GLUCOSE (UA) TRACE (NEGATIVE); URINE KETONE NEGATIVE (NEGATIVE); URINE LEUK ESTERASE NEGATIVE (NEGATIVE); URINE NITRITE NEGATIVE (NEGATIVE); URINE PROTEIN 4+ (NEGATIVE); URINE RBC 82 /uL (0-23.9); URINE UROBILINOGEN 0.2 mg/dL (0.2-1.0); URINE WBC 1 /uL (0-25.8)
[2020-03-31 01:55] LABS: URINE COLOR RED
[2020-03-31 02:06] LABS: BASO % 0.2 % (0-2.0); EOS % 0.6 % (0-4.5); HEMATOCRIT 30.5 % (35.4-49); LYMPH % 8.4 % (8-40); MCH 28.8 pg (25.7-33.7); MCHC 32.7 g/dl (32.0-35.9); MEAN CELL VOLUME 88.2 fl (80-96); MEAN PLT VOLUME 8.3 fl (7.5-11.1); MONO % 6.2 % (3.8-10.2); NEUT % 84.6 % (42.8-82.8); PLATELET COUNT 219 K/MM3 (134-434); RBC 3.46 M/mm3 (4.00-5.60); WHITE BLOOD COUNT 13.6 K/mm3 (4.0-10.0)
[2020-03-31 02:11] LABS: INR 1.04 (0.83-1.09); PROTHROMBIN TIME (PATIENT) 12.3 SEC (9.7-13.0)
[2020-03-31 02:32] LABS: ALBUMIN 3.5 g/dl (3.4-5.0); BILIRUBIN,TOTAL 0.6 mg/dL (0.2-1); BLOOD UREA NITROGEN 24.1 mg/dL (7-18); CALCIUM 9.1 mg/dL (8.5-10.1); CREATININE 1.6 mg/dL (0.55-1.3); POTASSIUM 4.1 mmol/L (3.5-5.1); TOT PROT 6.8 g/dl (6.4-8.2)
[2020-03-31] MEDS ORDERED: ONDANSETRON 4 MG/2 ML VIAL IVPUSH ONE (02:59)
[2020-03-31] MEDS ORDERED: SODIUM CHLORIDE 0.9% 500 ML INFUS.BAG IV ONE (02:59)
[2020-03-31] MEDS ORDERED: ACETAMINOPHEN 1000 MG/100 ML VIAL (NON FORMULARY) IVPB ONE ×2 (04:05→05:54)
[2020-03-31] MEDS ORDERED: MEROPENEM 1 GM in DEXTROSE 5%-WATER 100 ML IVPB ONE (05:45)
[2020-03-31] MEDS ORDERED: amLODIPine BESYLATE 5 MG TABLET (FP) PO ONE (05:49)
[2020-03-31] MEDS ORDERED: CARVEDILOL 12.5 MG TABLET (FP) PO ONE (05:49)
[2020-03-31] MEDS ORDERED: ACETAMINOPHEN INJECTION 100 ML IVPB ONE ×2 (06:09→06:14)
[2020-03-31] MEDS ORDERED: amLODIPine BESYLATE 5 MG TABLET (FP) ONE (06:12)
[2020-03-31] MEDS ORDERED: MEROPENEM 1 GM VIAL (RESTRICTED TO ID) IVPB ONE ×3 (06:12→17:00)
[2020-03-31] MEDS ORDERED: CARVEDILOL 12.5 MG TABLET (FP) ONE (06:12)
[2020-03-31] MEDS: SODIUM CHLORIDE 0.45% 1,000 ML IV SCH (07:10)
--- NOTE | 2020-03-31 09:10 | CON.ID ---
Consult Consult Specialty:: infectous disease Referred by:: Reason for Consultation:: uti,hematuria,abd pain - History of Present Illness Chief Complaint: abd pain,hematuria History of Present Illness: 74 year old male with a past medical history of hypertension, hyperlipidemia, coronary artery disease s/p stent in 2018 at [facility], COPD, hx of PE, pulmonary fibrosis and BPH presenting with progressive worsening ABD distension, suprapubic pain, and blood around ureteral meatus and in catheter bag. urology changing the catheter of the patient ,patient having makenzie hematuria had recent turp and also was treated for urosepsis plan is also for doing cystoscopy tomorrow - History Source History Provided By: Patient Limitations to Obtaining History: No Limitations - Past Medical History SEXER: Yes: Peripheral Neuropathy Cardio/Vascular: Yes: CAD, HTN, Hyperlipdemia Pulmonary: Yes: Bronchitis, COPD, Pneumonia, Sleep Apnea, Other (H/O COVID-19 Pneumonia/COPD/S/P Respiratory failure H/O Sleep Apnea H/O Bipap). No: Asthma, Cancer, O2 Dependent, Previously Intubated, Pulmonary Embolus, Pulmonary Fibrosis Gastrointestinal: Yes: GERD Renal/: Yes: BPH, UTI Infectious Disease: Yes: Other (s/p covid 19) Musculoskeletal: Yes: Chronic low back pain, Osteoarthritis (Lumbar Radiculopathy) Dermatology: Yes: Other - Past Surgical History Past Surgical History: Yes: TURP - Alcohol/Substance Use Hx Alcohol Use: No - Smoking History Smoking history: Never smoked Have you smoked in the past 12 months: No - Social History ADL: Independent History of Recent Travel: No Home Medications - Allergies Allergies/Adverse Reactions: Allergies Allergy/AdvReac Type Severity Reaction Status Date / Time codeine [Codeine] Allergy Verified 03/30/20 22:50 Penicillins Allergy Verified 03/30/20 22:50 - Home Medications Home Medications: Ambulatory Orders Aspirin [ASA -] 81 mg PO DAILY 11/05/18 Clopidogrel Bisulfate [Plavix] 75 mg PO DAILY 11/05/18 Potassium Chloride [Klor-Con M20] 20 meq PO DAILY 11/05/18 Tamsulosin HCl [Flomax] 0.8 mg PO DAILY 11/05/18 Albuterol Sulfate [Proair Hfa] 8.5 gm IH PRN 09/25/19 Amlodipine Besylate 5 mg PO BID 09/25/19 Atorvastatin Ca [Lipitor] 80 mg PO HS 09/25/19 Carvedilol [Coreg -] 12.5 mg PO BID 09/25/19 Gabapentin 400 mg PO PRN PRN 09/25/19 Losartan Potassium 25 mg PO DAILY 09/25/19 Torsemide 20 mg PO DAILY 09/25/19 Umeclidinium Brm/Vilanterol Tr [Anoro Ellipta 62.5-25 Mcg INH] 1 each IH DAILY 09/25/19 Review of Systems - Review of Systems Constitutional: reports: No Symptoms Eyes: reports: No Symptoms HENT: reports: No Symptoms Neck: reports: No Symptoms Cardiovascular: reports: No Symptoms Respiratory: reports: No Symptoms Gastrointestinal: reports: No Symptoms Genitourinary: reports: Hematuria, Other (suprapubic pain) Musculoskeletal: reports: No Symptoms Integumentary: reports: No Symptoms Neurological: reports: No Symptoms Endocrine: reports: No Symptoms Hematology/Lymphatic: reports: No Symptoms Psychiatric: reports: No Symptoms Physical Exam Vital Signs: Vital Signs Temperature 98.4 F 03/31/20 06:35 Pulse Rate 80 03/31/20 08:38 Respiratory Rate 20 03/31/20 08:38 Blood Pressure 171/59 H 03/31/20 08:38 O2 Sat by Pulse Oximetry (%) 95 03/31/20 08:43 Constitutional: Yes: No Distress, Calm Eyes: Yes: Conjunctiva Clear HENT: Yes: Atraumatic, Normocephalic Neck: Yes: Supple, Trachea Midline Cardiovascular: Yes: Pulse Irregular Respiratory: Yes: Regular, CTA Bilaterally Gastrointestinal: Yes: Normal Bowel Sounds, Soft Renal/: Yes: Dove Present, Hematuria, Other Musculoskeletal: Yes: WNL Extremities: Yes: WNL Neurological: Yes: Alert, Oriented Psychiatric: Yes: Alert, Oriented Labs: CBC, BMP 03/31/20 01:45 03/31/20 01:22 Imaging - Results Chest X-ray: Report Reviewed, Image Reviewed Assessment/Plan Problem List - Problems (1) Hematuria Code(s): R31.9 - HEMATURIA, UNSPECIFIED Qualifiers: Hematuria type: gross Qualified Code(s): R31.0 - Gross hematuria (2) Acute ID, inferior wall, initial episode of care Code(s): I21.19 - STEMI INVOLVING OT CORONARY ARTERY OF INFERIOR WALL (3) [id number] kidney injury Code(s): N17.9 - ACUTE KIDNEY FAILURE, UNSPECIFIED; N18.9 - CHRONIC KIDNEY DISEASE, UNSPECIFIED Qualifiers: Chronic kidney disease stage: stage 2 (mild) (4) BPH (benign prostatic hyperplasia) Code(s): N40.0 - BENIGN PROSTATIC HYPERPLASIA WITHOUT LOWER URINRY TRACT SYMP (5) CKD (chronic kidney disease) Code(s): N18.9 - CHRONIC KIDNEY DISEASE, UNSPECIFIED (6) Calcaneal spur, right foot Code(s): M77.31 - CALCANEAL SPUR, RIGHT FOOT (7) Cystitis Code(s): N30.90 - CYSTITIS, UNSPECIFIED WITHOUT HEMATURIA (8) Dysuria Code(s): R30.0 - DYSURIA (9) HLD (hyperlipidemia) Code(s): E78.5 - HYPERLIPIDEMIA, UNSPECIFIED Qualifiers: Hyperlipidemia type: pure hypercholesterolemia Qualified Code(s): E78.00 - Pure hypercholesterolemia, unspecified; E78.0 - Pure hypercholesterolemia (10) Hypercholesterolemia Code(s): E78.00 - PURE HYPERCHOLESTEROLEMIA, UNSPECIFIED (11) Hypokalemia Code(s): E87.6 - HYPOKALEMIA (12) Lumbar radiculopathy, chronic Code(s): M54.16 - RADICULOPATHY, LUMBAR REGION (13) NSTEMI (non-ST elevated myocardial infarction) Code(s): I21.4 - NON-ST ELEVATION (NSTEMI) MYOCARDIAL INFARCTION (14) Obesity (BMI 30.0-34.9) Code(s): E66.9 - OBESITY, UNSPECIFIED (15) Presence of drug-eluting stent in right coronary artery Code(s): Z95.5 - PRESENCE OF CORONARY ANGIOPLASTY IMPLANT AND GRAFT (16) S/P TURP Code(s): Z90.79 - ACQUIRED ABSENCE OF OTHER GENITAL ORGAN(S) (17) Shingles (herpes zoster) polyneuropathy Code(s): B02.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 (18) Sleep apnea Code(s): G47.30 - SLEEP APNEA, UNSPECIFIED Qualifiers: Sleep apnea type: obstructive Qualified Code(s): G47.33 - Obstructive sleep apnea (adult) (pediatric) (19) Syncope Code(s): R55 - SYNCOPE AND COLLAPSE (20) UTI (urinary tract infection) Code(s): N39.0 - URINARY TRACT INFECTION, SITE NOT SPECIFIED Qualifiers: Urinary tract infection type: acute cystitis Hematuria presence: with hematuria Qualified Code(s): N30.01 - Acute cystitis with hematuria (21) Urinary retention Code(s): R33.9 - RETENTION OF URINE, UNSPECIFIED plan will start patient on abx await for cx results continue cbi transfusions if needed rest as per the team
[2020-03-31] MEDS ORDERED: amLODIPine BESYLATE 10 MG TABLET (FP) PO ONE (10:27)
[2020-03-31] MEDS ORDERED: LOSARTAN POTASSIUM 50 MG TABLET (FP) PO SCH (10:45)
[2020-03-31] MEDS ORDERED: TAMSULOSIN HCL 0.4 MG CAP PO ONE (10:46)
[2020-03-31] MEDS ORDERED: TAMSULOSIN HCL 0.4 MG CAP ONE (11:37)
[2020-03-31] MEDS ORDERED: glipiZIDE 5 MG TABLET (FP) ONE (11:37)
[2020-03-31] MEDS ORDERED: FUROSEMIDE 40 MG TABLET (FP) ONE (11:37)
[2020-03-31] MEDS: FUROSEMIDE 40 MG TABLET (FP) PO SCH (11:48)
[2020-03-31] MEDS: glipiZIDE 5 MG TABLET (FP) PO SCH (11:48)
--- NOTE | 2020-03-31 13:01 | CON.CARD ---
Consult Consult Specialty:: Cardiology Referred by:: Dr. Green Reason for Consultation:: CAD s/p stent on DAPT - History of Present Illness Chief Complaint: Hematuria, clot retention History of Present Illness: This is a 74 year old male with a past medical history of hypertension, hyperlipidemia, coronary artery disease s/p stent in 2018 at [facility], COPD, hx of PE, Type 2 DM, pulmonary fibrosis and BPH s/p TURP 02/23/2020 c/b sepsis source and BILL post TURP despite prophylactic cipro, s/p cysto/evac clots/fulguration of bleeding vessels, d/jose with indwelling catheter for urinary retention presented for urinary retention, recurrent hematuria, urinary retention and suprapubic pain after resuming DAPT, started CBI with clearing of clots. He denies chest pain, shortness of breath, near or true syncope, palpitat ions, orthopnea, PND or LE edema. Last visit 02/16/2020 for pre-procedure CV evaluation. 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 No: Asthma, Cancer, O2 Dependent, Previously Intubated, Pulmonary Embolus, Pulmonary Fibrosis Gastrointestinal: Yes: GERD Renal/: Yes: BPH, UTI Infectious Disease: Yes: Other (s/p covid 19) Musculoskeletal: Yes: Chronic low back pain, Osteoarthritis (Lumbar Radiculopathy) Dermatology: Yes: Other - Past Surgical History Past Surgical History: Yes: TURP - Alcohol/Substance Use Hx Alcohol Use: No - Smoking History Smoking history: Never smoked Have you smoked in the past 12 months: No - Social History ADL: Independent History of Recent Travel: No Home Medications - Allergies Allergies/Adverse Reactions: Allergies Allergy/AdvReac Type Severity Reaction Status Date / Time codeine [Codeine] Allergy Verified 03/30/20 22:50 Penicillins Allergy Verified 03/30/20 22:50 - Home Medications Home Medications: Ambulatory Orders Aspirin [ASA -] 81 mg PO DAILY 11/05/18 Clopidogrel Bisulfate [Plavix] 75 mg PO DAILY 11/05/18 Potassium Chloride [Klor-Con M20] 20 meq PO DAILY 11/05/18 Tamsulosin HCl [Flomax] 0.8 mg PO DAILY 11/05/18 Albuterol Sulfate [Proair Hfa] 8.5 gm IH PRN 09/25/19 Amlodipine Besylate 5 mg PO BID 09/25/19 Atorvastatin Ca [Lipitor] 80 mg PO HS 09/25/19 Carvedilol [Coreg -] 12.5 mg PO BID 09/25/19 Gabapentin 400 mg PO PRN PRN 09/25/19 Losartan Potassium 25 mg PO DAILY 09/25/19 Torsemide 20 mg PO DAILY 09/25/19 Umeclidinium Brm/Vilanterol Tr [Anoro Ellipta 62.5-25 Mcg INH] 1 each IH DAILY 09/25/19 Review of Systems - Review of Systems Genitourinary: reports: Hematuria Vital Signs: Vital Signs Temperature 99.3 F 03/31/20 12:23 Pulse Rate 78 03/31/20 11:40 Respiratory Rate 16 03/31/20 11:40 Blood Pressure 116/51 L 03/31/20 11:40 O2 Sat by Pulse Oximetry (%) 95 03/31/20 11:40 Constitutional: Yes: No Distress, Calm Neck: Yes: Supple Respiratory: Yes: Regular, CTA Bilaterally Gastrointestinal: Yes: Normal Bowel Sounds, Soft Renal/: Yes: Dove Present, Hematuria Cardiovascular: Yes: Regular Rate and Rhythm JVD: No Carotid Bruit: No PMI: Non-Displaced Heart Sounds: Yes: S1, S2 Edema: No - Other Data Labs, Other Data: CBC, BMP 03/31/20 01:45 03/31/20 01:22 INR, PTT INR 1.04 (0.83-1.09) 03/31/20 01:45 NSR @ 70 RBBB Prior Cardiac Procedures: PTCA with Stent Ejection Fraction %: LVEF > or = 40 % Imaging - Results Chest X-ray: Report Reviewed (NAD) Problem List - Problems (1) Hematuria Code(s): R31.9 - HEMATURIA, UNSPECIFIED Qualifiers: Hematuria type: gross Qualified Code(s): R31.0 - Gross hematuria (2) [id number] kidney injury Code(s): N17.9 - ACUTE KIDNEY FAILURE, UNSPECIFIED; N18.9 - CHRONIC KIDNEY DISEASE, UNSPECIFIED Qualifiers: Chronic kidney disease stage: stage 2 (mild) (3) Coronary artery disease Code(s): I25.10 - ATHSCL HEART DISEASE OF [place] CORONARY ARTERY W/O ANG PCTRS Qualifiers: Coronary Disease-Associated Artery/Lesion type: [place] artery [place] vs. transplanted heart: [place] heart Associated angina: without angina Qualified Code(s): I25.10 - Atherosclerotic heart disease of [place] coronary artery without angina pectoris (4) Dove catheter problem Code(s): T83.9XXA - UNSP COMPLICATION OF GENITOURINARY PROSTH DEV/GRFT, INIT Qualifiers: Encounter type: initial encounter Qualified Code(s): T83.9XXA - Unspecified complication of genitourinary prosthetic device, implant and graft, initial encounter (5) HLD (hyperlipidemia) Code(s): E78.5 - HYPERLIPIDEMIA, UNSPECIFIED Qualifiers: Hyperlipidemia type: pure hypercholesterolemia Qualified Code(s): E78.00 - Pure hypercholesterolemia, unspecified; E78.0 - Pure hypercholesterolemia (6) Hypertensive heart disease Code(s): I11.9 - HYPERTENSIVE HEART DISEASE WITHOUT HEART FAILURE Qualifiers: Heart failure presence: without heart failure Qualified Code(s): I11.9 - Hypertensive heart disease without heart failure (7) Presence of drug-eluting stent in right coronary artery Code(s): Z95.5 - PRESENCE OF CORONARY ANGIOPLASTY IMPLANT AND GRAFT (8) S/P TURP Code(s): Z90.79 - ACQUIRED ABSENCE OF OTHER GENITAL ORGAN(S) (9) Sleep apnea Code(s): G47.30 - SLEEP APNEA, UNSPECIFIED Qualifiers: Sleep apnea type: obstructive Qualified Code(s): G47.33 - Obstructive sleep apnea (adult) (pediatric) (10) UTI (urinary tract infection) Code(s): N39.0 - URINARY TRACT INFECTION, SITE NOT SPECIFIED Qualifiers: Urinary tract infection type: acute cystitis Hematuria presence: with hematuria Qualified Code(s): N30.01 - Acute cystitis with hematuria (11) Urinary retention Code(s): R33.9 - RETENTION OF URINE, UNSPECIFIED Assessment/Plan 05/20/2018 Nuc stress: Mod inferior ischemia with small infarct, LVEF 52% 05/20/2018 Echo: Normal LV size with mod cLVH, LVEF 55-60%, mild LAE, mod MR, tr TR 05/21/2018 C performed at [facility] [place]/NSTEMI and moderate inferior ischemia. 2 vessel CAD 90-95% ostial LCx-OM (medium sized vessel) left alone, 90-95% prox RCA which was treated with implant Resolute Bishop 4.0x18 mm FISH post- dilated with NC 4.5x15 balloon @ 14 SARAHY, normal LV fxn LVEF 65-70% with elevated LVEDP 27 mmHg, no aortic stenosis. 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 Recommend optimal medical therapy for secondary prevention of cardiovascular disease, consider PCI of LCx-OM if remains symptomatic despite meds, patient is candidate for cardiac rehab. 1. Recurrent hematuria, clots and urinary retention 2. R/o recurrent Sepsis source post TURP s/p cysto/evac clots/fulguration bleeding vessels 3. COPD, pulm fibrosis 4. CAD s/p FISH RCA 5. Diastolic dysfunction 6. Type 2 DM 7. Acute on CKD (obstructive) with proteinuria 8. OSAS on cpap 9. Hypertensive heart disease 10. Hyperlipidemia 11 H/o PE PLAN: 1. CBI until clear 2. Hold ASA and Plavix until hematuria resolves (FISH placed 2017) then restart Plavix alone given recurrent hematuria 3. Continue Lipitor 80 qd 4. Continue Carvedilol 25 bid 5. Continue Cozaar 50 qd with close monitoring of renal function, dose titration as needed 6. Continue Norvasc 10 qd 7. Hold torsemide pending renal recovery 8. Empiric antibiotic course as per ID team 9. BD, O2 as needed, cpap nightly 10. Thank you for consultative opportunity
--- NOTE | 2020-03-31 13:13 | CON.GU ---
Consult Consult Specialty:: Referred by:: Norma Reason for Consultation:: gross hematuria - History of Present Illness Chief Complaint: gross hematuria History of Present Illness: 74 year old male S/P TURP on 02/23/2020. He was readmitted for hematuria and sepsis. Two weeks later I did a cystoscopy and fulguration of bleeding vessels. He went home with the aguilar. He was clear until yesterday ,though he had restarted his AC. 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 No: Asthma, Cancer, O2 Dependent, Previously Intubated, Pulmonary Embolus, Pulmonary Fibrosis Gastrointestinal: Yes: GERD Renal/: Yes: BPH, UTI Infectious Disease: Yes: Other (s/p covid 19) Musculoskeletal: Yes: Chronic low back pain, Osteoarthritis (Lumbar Radiculopathy) Dermatology: Yes: Other - Past Surgical History Past Surgical History: Yes: TURP - Alcohol/Substance Use Hx Alcohol Use: No - Smoking History Smoking history: Never smoked Have you smoked in the past 12 months: No - Social History ADL: Independent History of Recent Travel: No Home Medications - Allergies Allergies/Adverse Reactions: Allergies Allergy/AdvReac Type Severity Reaction Status Date / Time codeine [Codeine] Allergy Verified 03/30/20 22:50 Penicillins Allergy Verified 03/30/20 22:50 - Home Medications Home Medications: Ambulatory Orders Aspirin [ASA -] 81 mg PO DAILY 11/05/18 Clopidogrel Bisulfate [Plavix] 75 mg PO DAILY 11/05/18 Potassium Chloride [Klor-Con M20] 20 meq PO DAILY 11/05/18 Tamsulosin HCl [Flomax] 0.8 mg PO DAILY 11/05/18 Albuterol Sulfate [Proair Hfa] 8.5 gm IH PRN 09/25/19 Amlodipine Besylate 5 mg PO BID 09/25/19 Atorvastatin Ca [Lipitor] 80 mg PO HS 09/25/19 Carvedilol [Coreg -] 12.5 mg PO BID 09/25/19 Gabapentin 400 mg PO PRN PRN 09/25/19 Losartan Potassium 25 mg PO DAILY 09/25/19 Torsemide 20 mg PO DAILY 09/25/19 Umeclidinium Brm/Vilanterol Tr [Anoro Ellipta 62.5-25 Mcg INH] 1 each IH DAILY 09/25/19 Review of Systems - Review of Systems Genitourinary: reports: Dysuria, Frequency, Hematuria Physical Exam- Vital Signs: Vital Signs Temperature 99.3 F 03/31/20 12:23 Pulse Rate 78 03/31/20 11:40 Respiratory Rate 16 03/31/20 11:40 Blood Pressure 116/51 L 03/31/20 11:40 O2 Sat by Pulse Oximetry (%) 95 03/31/20 11:40 Renal/: Yes: Bladder Distention, Aguilar Present, Hematuria. No: CVA Tenderness - Left, CVA Tenderness - Right Labs: CBC, BMP 03/31/20 01:45 03/31/20 01:22 Problem List - Problems (1) Hematuria Assessment/Plan: I placed a large bore hematuria cath for CBI. Abx and CBI and will follow Code(s): R31.9 - HEMATURIA, UNSPECIFIED Qualifiers: Hematuria type: gross Qualified Code(s): R31.0 - Gross hematuria
[2020-03-31] MEDS ORDERED: DEXTROSE 5%-WATER 100 ML IVPB ONE ×2 (13:26→17:01)
[2020-03-31] MEDS: MEROPENEM 1 GM in DEXTROSE 5%-WATER 100 ML IVPB SCH ×2 (13:35→18:23)
[2020-03-31] MEDS: ACETAMINOPHEN 325 MG TABLET (FP) PO SCH ×2 (13:35→21:19)
--- NOTE | 2020-03-31 16:05 | HP ---
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 No: Asthma, Cancer, O2 Dependent, Previously Intubated, Pulmonary Embolus, Pulmonary Fibrosis Gastrointestinal: Yes: GERD Renal/: Yes: BPH, UTI Infectious Disease: Yes: Other (s/p covid 19) Musculoskeletal: Yes: Chronic low back pain, Osteoarthritis (Lumbar Radiculopathy) Dermatology: Yes: Other - Past Surgical History Past Surgical History: Yes: TURP - Advance Directives Advance Directives: Yes: Health Care Proxy - Smoking History Smoking history: Never smoked Have you smoked in the past 12 months: No - Alcohol/Substance Use Hx Alcohol Use: No - Social History ADL: Independent History of Recent Travel: No Home Medications - Allergies Allergies/Adverse Reactions: Allergies Allergy/AdvReac Type Severity Reaction Status Date / Time codeine [Codeine] Allergy Verified 03/30/20 22:50 Penicillins Allergy Verified 03/30/20 22:50 - Home Medications Home Medications: Ambulatory Orders Aspirin [ASA -] 81 mg PO DAILY 11/05/18 Clopidogrel Bisulfate [Plavix] 75 mg PO DAILY 11/05/18 Potassium Chloride [Klor-Con M20] 20 meq PO DAILY 11/05/18 Tamsulosin HCl [Flomax] 0.8 mg PO DAILY 11/05/18 Albuterol Sulfate [Proair Hfa] 8.5 gm IH PRN 09/25/19 Amlodipine Besylate 5 mg PO BID 09/25/19 Atorvastatin Ca [Lipitor] 80 mg PO HS 09/25/19 Carvedilol [Coreg -] 12.5 mg PO BID 09/25/19 Gabapentin 400 mg PO PRN PRN 09/25/19 Losartan Potassium 25 mg PO DAILY 09/25/19 Torsemide 20 mg PO DAILY 09/25/19 Umeclidinium Brm/Vilanterol Tr [Anoro Ellipta 62.5-25 Mcg INH] 1 each IH DAILY 09/25/19 Review of Systems - Review of Systems Constitutional: reports: Other (Weakness) Eyes: reports: No Symptoms HENT: reports: No Symptoms Neck: reports: Swollen Glands Cardiovascular: reports: No Symptoms Respiratory: reports: Other (H/O COVID) Gastrointestinal: reports: Constipation Genitourinary: reports: Other (Hematuria) Musculoskeletal: reports: Back Pain Neurological: reports: Dizziness Hematology/Lymphatic: reports: Other (Anemia/HematuriaS/P 3 Units last admission) Psychiatric: reports: No Symptoms Physical Examination Vital Signs: Vital Signs Temperature 98.4 F 03/31/20 15:20 Pulse Rate 77 03/31/20 15:20 Respiratory Rate 18 03/31/20 15:20 Blood Pressure 126/54 L 03/31/20 15:20 O2 Sat by Pulse Oximetry (%) 100 03/31/20 15:20 Labs: CBC, BMP 03/31/20 01:45 03/31/20 01:22 Problem List - Problems (1) Hematuria Code(s): R31.9 - HEMATURIA, UNSPECIFIED Qualifiers: Hematuria type: gross Qualified Code(s): R31.0 - Gross hematuria (2) Acute GA, inferior wall, initial episode of care Code(s): I21.19 - STEMI INVOLVING OTH CORONARY ARTERY OF INFERIOR WALL (3) Foapn-qc-[id number] kidney injury Code(s): N17.9 - ACUTE KIDNEY FAILURE, UNSPECIFIED; N18.9 - CHRONIC KIDNEY DISEASE, UNSPECIFIED Qualifiers: Chronic kidney disease stage: stage 2 (mild) (4) BPH (benign prostatic hyperplasia) Code(s): N40.0 - BENIGN PROSTATIC HYPERPLASIA WITHOUT LOWER URINRY TRACT SYMP (5) CKD (chronic kidney disease) Code(s): N18.9 - CHRONIC KIDNEY DISEASE, UNSPECIFIED (6) Calcaneal spur, right foot Code(s): M77.31 - CALCANEAL SPUR, RIGHT FOOT (7) Cystitis Code(s): N30.90 - CYSTITIS, UNSPECIFIED WITHOUT HEMATURIA (8) Dysuria Code(s): R30.0 - DYSURIA (9) HLD (hyperlipidemia) Code(s): E78.5 - HYPERLIPIDEMIA, UNSPECIFIED Qualifiers: Hyperlipidemia type: pure hypercholesterolemia Qualified Code(s): E78.00 - Pure hypercholesterolemia, unspecified; E78.0 - Pure hypercholesterolemia (10) Hypercholesterolemia Code(s): E78.00 - PURE HYPERCHOLESTEROLEMIA, UNSPECIFIED (11) Hypokalemia Code(s): E87.6 - HYPOKALEMIA (12) Lumbar radiculopathy, chronic Code(s): M54.16 - RADICULOPATHY, LUMBAR REGION (13) NSTEMI (non-ST elevated myocardial infarction) Code(s): I21.4 - NON-ST ELEVATION (NSTEMI) MYOCARDIAL INFARCTION (14) Obesity (BMI 30.0-34.9) Code(s): E66.9 - OBESITY, UNSPECIFIED (15) Presence of drug-eluting stent in right coronary artery Code(s): Z95.5 - PRESENCE OF CORONARY ANGIOPLASTY IMPLANT AND GRAFT (16) S/P TURP Code(s): Z90.79 - ACQUIRED ABSENCE OF OTHER GENITAL ORGAN(S) (17) Shingles (herpes zoster) polyneuropathy Code(s): B02.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 (18) Sleep apnea Code(s): G47.30 - SLEEP APNEA, UNSPECIFIED Qualifiers: Sleep apnea type: obstructive Qualified Code(s): G47.33 - Obstructive sleep apnea (adult) (pediatric) (19) Syncope Code(s): R55 - SYNCOPE AND COLLAPSE (20) UTI (urinary tract infection) Code(s): N39.0 - URINARY TRACT INFECTION, SITE NOT SPECIFIED Qualifiers: Urinary tract infection type: acute cystitis Hematuria presence: with hematuria Qualified Code(s): N30.01 - Acute cystitis with hematuria (21) Urinary retention Code(s): R33.9 - RETENTION OF URINE, UNSPECIFIED Assessment/Plan spoke with Urology and ID Pt will have repeat CBC at 6 PM today
[2020-03-31] MEDS: CARVEDILOL 12.5 MG TABLET (FP) PO SCH (21:19)
[2020-03-31 21:29] LABS: BASO % 0.4 % (0-2.0); EOS % 0.2 % (0-4.5); HEMATOCRIT 25.1 % (35.4-49); HEMOGLOBIN 8.1 GM/dL (11.7-16.9); LYMPH % 11.8 % (8-40); MCH 28.5 pg (25.7-33.7); MCHC 32.1 g/dl (32.0-35.9); MEAN CELL VOLUME 88.8 fl (80-96); MEAN PLT VOLUME 8.6 fl (7.5-11.1); MONO % 9.6 % (3.8-10.2); PLATELET COUNT 198 K/MM3 (134-434); RBC 2.83 M/mm3 (4.00-5.60); RDW 17.4 % (11.9-15.9); WHITE BLOOD COUNT 14.5 K/mm3 (4.0-10.0)
[2020-03-31] MEDS ORDERED: ZOLPIDEM TARTRATE 5 MG TABLET PO PRN (22:00)
[2020-03-31] MEDS ORDERED: ATORVASTATIN CA 80 MG TABLET (FP) PO SCH (22:00)
[2020-04-01] MEDS ORDERED: MEROPENEM 1 GM VIAL (RESTRICTED TO ID) IVPB ONE ×3 (01:14→18:10)
[2020-04-01] MEDS ORDERED: DEXTROSE 5%-WATER 100 ML IVPB ONE ×3 (01:14→18:11)
[2020-04-01] MEDS: MEROPENEM 1 GM in DEXTROSE 5%-WATER 100 ML IVPB SCH ×3 (01:20→18:13)
[2020-04-01] MEDS: SODIUM CHLORIDE 0.45% 1,000 ML IV SCH (04:00)
[2020-04-01] MEDS: ACETAMINOPHEN 325 MG TABLET (FP) PO SCH ×3 (06:12→21:45)
[2020-04-01] MEDS: glipiZIDE 5 MG TABLET (FP) PO SCH (06:12)
[2020-04-01] MEDS ORDERED: morphine SULFATE 4 MG/ML VIAL IM ONE (07:00)
--- NOTE | 2020-04-01 07:38 | PN ---
Progress Note, Physician History of Present Illness: Pt had CBI drainage put in Pt Catheter is blocked Drop in Hb to 8 from 10 Pt WBC is up BC done No Fever Left message to Dr gomez for possible cystoscopy Spoke with Nurse to keep Pt NPO. Pt went to OR spoke with dr puente Pt had Cystoscopy Clots/Cautarization - Current Medication List Current Medications: Active Medications Acetaminophen (Tylenol -) 650 mg PO TID [facility] Last Admin: 04/01/20 06:12 Dose: 650 mg Documented by: Atorvastatin Calcium (Lipitor -) 80 mg PO HS [facility] Last Admin: 03/31/20 21:19 Dose: 80 mg Documented by: Carvedilol (Coreg -) 12.5 mg PO BID [facility] Last Admin: 03/31/20 21:19 Dose: 12.5 mg Documented by: Furosemide (Lasix -) 40 mg PO DAILY [facility] Last Admin: 03/31/20 11:48 Dose: 40 mg Documented by: Glipizide (Glucotrol -) 5 mg PO DAILY@0700 [facility] Last Admin: 04/01/20 06:12 Dose: 5 mg Documented by: Sodium Chloride (1/2 Normal Saline) 1,000 mls @ 60 mls/hr IV ASDIR [facility] Last Admin: 04/01/20 04:00 Dose: 60 mls/hr Documented by: Meropenem 1 gm/ Dextrose 100 mls @ 200 mls/hr IVPB Q8H-IV [facility] Last Admin: 04/01/20 01:20 Dose: 200 mls/hr Documented by: Zolpidem Tartrate (Ambien -) 5 mg PO HS PRN PRN Reason: INSOMNIA Last Admin: 03/31/20 21:19 Dose: 5 mg Documented by: - Objective Vital Signs: Vital Signs Temperature 97.3 F L 04/01/20 05:50 Pulse Rate 74 04/01/20 05:50 Respiratory Rate 18 04/01/20 05:50 Blood Pressure 143/60 04/01/20 05:50 O2 Sat by Pulse Oximetry (%) 97 04/01/20 05:50 Constitutional: Yes: Anxious Eyes: Yes: Conjunctiva Clear, EOM Intact HENT: Yes: Atraumatic, Normocephalic Neck: Yes: Supple, Trachea Midline Cardiovascular: Yes: Regular Rate and Rhythm, S1 Respiratory: Yes: Regular, CTA Bilaterally Gastrointestinal: Yes: Normal Bowel Sounds, Soft Edema: No Peripheral Pulses WNL: Yes Neurological: Yes: Alert, Oriented, Cran Nerves II-XII Intact Labs: CBC, BMP 03/31/20 21:00 03/31/20 01:22 INR, PTT INR 1.04 (0.83-1.09) 03/31/20 01:45 Problem List - Problems (1) Hematuria Code(s): R31.9 - HEMATURIA, UNSPECIFIED Qualifiers: Hematuria type: gross Qualified Code(s): R31.0 - Gross hematuria (2) Acute NC, inferior wall, initial episode of care Code(s): I21.19 - STEMI INVOLVING OTH CORONARY ARTERY OF INFERIOR WALL (3) Lshmt-nr-erookqe kidney injury Code(s): N17.9 - ACUTE KIDNEY FAILURE, UNSPECIFIED; N18.9 - CHRONIC KIDNEY DISEASE, UNSPECIFIED Qualifiers: Chronic kidney disease stage: stage 2 (mild) (4) BPH (benign prostatic hyperplasia) Code(s): N40.0 - BENIGN PROSTATIC HYPERPLASIA WITHOUT LOWER URINRY TRACT SYMP (5) CKD (chronic kidney disease) Code(s): N18.9 - CHRONIC KIDNEY DISEASE, UNSPECIFIED (6) Calcaneal spur, right foot Code(s): M77.31 - CALCANEAL SPUR, RIGHT FOOT (7) Cystitis Code(s): N30.90 - CYSTITIS, UNSPECIFIED WITHOUT HEMATURIA (8) Dysuria Code(s): R30.0 - DYSURIA (9) HLD (hyperlipidemia) Code(s): E78.5 - HYPERLIPIDEMIA, UNSPECIFIED Qualifiers: Hyperlipidemia type: pure hypercholesterolemia Qualified Code(s): E78.00 - Pure hypercholesterolemia, unspecified; E78.0 - Pure hypercholesterolemia (10) Hypercholesterolemia Code(s): E78.00 - PURE HYPERCHOLESTEROLEMIA, UNSPECIFIED (11) Hypokalemia Code(s): E87.6 - HYPOKALEMIA (12) Lumbar radiculopathy, chronic Code(s): M54.16 - RADICULOPATHY, LUMBAR REGION (13) NSTEMI (non-ST elevated myocardial infarction) Code(s): I21.4 - NON-ST ELEVATION (NSTEMI) MYOCARDIAL INFARCTION (14) Obesity (BMI 30.0-34.9) Code(s): E66.9 - OBESITY, UNSPECIFIED (15) Presence of drug-eluting stent in right coronary artery Code(s): Z95.5 - PRESENCE OF CORONARY ANGIOPLASTY IMPLANT AND GRAFT (16) S/P TURP Code(s): Z90.79 - ACQUIRED ABSENCE OF OTHER GENITAL ORGAN(S) (17) Shingles (herpes zoster) polyneuropathy Code(s): B02.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 (18) Sleep apnea Code(s): G47.30 - SLEEP APNEA, UNSPECIFIED Qualifiers: Sleep apnea type: obstructive Qualified Code(s): G47.33 - Obstructive sleep apnea (adult) (pediatric) (19) Syncope Code(s): R55 - SYNCOPE AND COLLAPSE (20) UTI (urinary tract infection) Code(s): N39.0 - URINARY TRACT INFECTION, SITE NOT SPECIFIED Qualifiers: Urinary tract infection type: acute cystitis Hematuria presence: with hematuria Qualified Code(s): N30.01 - Acute cystitis with hematuria (21) Urinary retention Code(s): R33.9 - RETENTION OF URINE, UNSPECIFIED Assessment/Plan Pt Had CBI not working Pt went to OR Cautarization / Clots evacuation
[2020-04-01] MEDS ORDERED: MORPHINE SULFATE 2 MG/ML VIAL IVPUSH ONE (07:45)
[2020-04-01 10:29] LABS: BLOOD UREA NITROGEN 42.6 mg/dL (7-18); CALCIUM 8.2 mg/dL (8.5-10.1); CREATININE 2.7 mg/dL (0.55-1.3); POTASSIUM 3.8 mmol/L (3.5-5.1)
--- NOTE | 2020-04-01 10:37 | PN ---
Progress Note, Physician History of Present Illness: This is a 74 year old male with a past medical history of hypertension, hyperlipidemia, coronary artery disease s/p stent in 2018 at [facility], COPD, hx of PE, Type 2 DM, pulmonary fibrosis and BPH s/p TURP 02/23/2020 c/b sepsis source and BILL post TURP despite prophylactic cipro, s/p cysto/evac clots/fulguration of bleeding vessels, d/jose with indwelling catheter for urinary retention presented for urinary retention, recurrent hematuria, urinary retention and suprapubic pain after resuming DAPT, started CBI which subsequently clotted off, underwent cystoscopy, fulguration of bleeding, evacuation of clots, found to have prostatic hemorrhage requiring 1 u pRBC transfusion. Last visit 02/16/2020 for pre-procedure CV evaluation. Covid +. - Current Medication List Current Medications: Active Medications Acetaminophen (Tylenol -) 650 mg PO TID [facility] Last Admin: 04/01/20 06:12 Dose: 650 mg Documented by: Atorvastatin Calcium (Lipitor -) 80 mg PO HS [facility] Last Admin: 03/31/20 21:19 Dose: 80 mg Documented by: Carvedilol (Coreg -) 12.5 mg PO BID [facility] Last Admin: 03/31/20 21:19 Dose: 12.5 mg Documented by: Furosemide (Lasix -) 40 mg PO DAILY [facility] Last Admin: 03/31/20 11:48 Dose: 40 mg Documented by: Glipizide (Glucotrol -) 5 mg PO DAILY@0700 [facility] Last Admin: 04/01/20 06:12 Dose: 5 mg Documented by: Sodium Chloride (1/2 Normal Saline) 1,000 mls @ 60 mls/hr IV ASDIR [facility] Last Admin: 04/01/20 04:00 Dose: 60 mls/hr Documented by: Meropenem 1 gm/ Dextrose 100 mls @ 200 mls/hr IVPB Q8H-IV [facility] Last Admin: 04/01/20 01:20 Dose: 200 mls/hr Documented by: Zolpidem Tartrate (Ambien -) 5 mg PO HS PRN PRN Reason: INSOMNIA Last Admin: 03/31/20 21:19 Dose: 5 mg Documented by: - Objective Vital Signs: Vital Signs Temperature 97.3 F L 04/01/20 05:50 Pulse Rate 74 04/01/20 05:50 Respiratory Rate 18 04/01/20 05:50 Blood Pressure 143/60 04/01/20 05:50 O2 Sat by Pulse Oximetry (%) 97 04/01/20 05:50 Constitutional: Yes: No Distress, Calm Neck: Yes: Supple Cardiovascular: Yes: Regular Rate and Rhythm Respiratory: Yes: Regular, CTA Bilaterally Gastrointestinal: Yes: Normal Bowel Sounds, Soft Edema: No Labs: CBC, BMP 03/31/20 21:00 04/01/20 09:10 INR, PTT INR 1.04 (0.83-1.09) 03/31/20 01:45 Problem List - Problems (1) Hematuria Code(s): R31.9 - HEMATURIA, UNSPECIFIED Qualifiers: Hematuria type: gross Qualified Code(s): R31.0 - Gross hematuria (2) Gemwo-gk-hzdolmq kidney injury Code(s): N17.9 - ACUTE KIDNEY FAILURE, UNSPECIFIED; N18.9 - CHRONIC KIDNEY DISEASE, UNSPECIFIED Qualifiers: Chronic kidney disease stage: stage 2 (mild) (3) Coronary artery disease Code(s): I25.10 - ATHSCL HEART DISEASE OF [place] CORONARY ARTERY W/O ANG PCTRS Qualifiers: Coronary Disease-Associated Artery/Lesion type: [place] artery [place] vs. transplanted heart: [place] heart Associated angina: without angina Qualified Code(s): I25.10 - Atherosclerotic heart disease of [place] coronary artery without angina pectoris (4) Dove catheter problem Code(s): T83.9XXA - UNSP COMPLICATION OF GENITOURINARY PROSTH DEV/GRFT, INIT Qualifiers: Encounter type: initial encounter Qualified Code(s): T83.9XXA - Unspecified complication of genitourinary prosthetic device, implant and graft, initial encounter (5) HLD (hyperlipidemia) Code(s): E78.5 - HYPERLIPIDEMIA, UNSPECIFIED Qualifiers: Hyperlipidemia type: pure hypercholesterolemia Qualified Code(s): E78.00 - Pure hypercholesterolemia, unspecified; E78.0 - Pure hypercholesterolemia (6) Hypertensive heart disease Code(s): I11.9 - HYPERTENSIVE HEART DISEASE WITHOUT HEART FAILURE Qualifiers: Heart failure presence: without heart failure Qualified Code(s): I11.9 - Hypertensive heart disease without heart failure (7) Presence of drug-eluting stent in right coronary artery Code(s): Z95.5 - PRESENCE OF CORONARY ANGIOPLASTY IMPLANT AND GRAFT (8) S/P TURP Code(s): Z90.79 - ACQUIRED ABSENCE OF OTHER GENITAL ORGAN(S) (9) Sleep apnea Code(s): G47.30 - SLEEP APNEA, UNSPECIFIED Qualifiers: Sleep apnea type: obstructive Qualified Code(s): G47.33 - Obstructive sleep apnea (adult) (pediatric) (10) UTI (urinary tract infection) Code(s): N39.0 - URINARY TRACT INFECTION, SITE NOT SPECIFIED Qualifiers: Urinary tract infection type: acute cystitis Hematuria presence: with hematuria Qualified Code(s): N30.01 - Acute cystitis with hematuria (11) Urinary retention Code(s): R33.9 - RETENTION OF URINE, UNSPECIFIED Assessment/Plan 05/20/2018 Nuc stress: Mod inferior ischemia with small infarct, LVEF 52% 05/20/2018 Echo: Normal LV size with mod cLVH, LVEF 55-60%, mild LAE, mod MR, tr TR 05/21/2018 [facility] performed at [facility] [place]/NSTEMI and moderate inferior ischemia. 2 vessel CAD 90-95% ostial LCx-OM (medium sized vessel) left alone, 90-95% prox RCA which was treated with implant Resolute [place] 4.0x18 mm FISH post- dilated with NC 4.5x15 balloon @ 14 SARAHY, normal LV fxn LVEF 65-70% with elevated LVEDP 27 mmHg, no aortic stenosis. Mynx deployed right WAGE ANALYST access site, no complications. Recommend optimal medical therapy for secondary prevention of cardiovascular disease, consider PCI of LCx-OM if remains symptomatic despite meds, patient is candidate for cardiac rehab. 1. Recurrent hematuria, clots and urinary retention s/p cystoscopy, fulguration of bleeding, evacuation of clots 2. R/o recurrent Sepsis source post TURP s/p cysto/evac clots/fulguration bleeding vessels 3. COPD, pulm fibrosis 4. CAD s/p FISH RCA 5. Diastolic dysfunction 6. Type 2 DM 7. Acute on CKD (obstructive) with proteinuria 8. OSAS on cpap 9. Hypertensive heart disease 10. Hyperlipidemia 11 H/o PE 12. COVID + PLAN: 1. CBI until clear 2. Hold ASA and Plavix until hematuria resolves (FISH placed 2017) then restart Plavix alone given recurrent hematuria 3. Continue Lipitor 80 qd 4. Continue Carvedilol 12.5 bid 5. Hold Cozaar 50 qd and furosemide 40 qd pending renal recovery 6. Continue Norvasc 10 qd 8. Empiric antibiotic course as per ID team 9. BD, O2 as needed, cpap nightly
[2020-04-01] MEDS: CARVEDILOL 12.5 MG TABLET (FP) PO SCH ×2 (11:05→21:46)
[2020-04-01] MEDS: FUROSEMIDE 40 MG TABLET (FP) PO SCH (11:05)
--- NOTE | 2020-04-01 11:19 | PN ---
Progress Note, Physician History of Present Illness: continues to have hematuria foleys blocked going to the or receiving blood - Current Medication List Current Medications: Active Medications Acetaminophen (Tylenol -) 650 mg PO TID [facility] Last Admin: 04/01/20 06:12 Dose: 650 mg Documented by: Atorvastatin Calcium (Lipitor -) 80 mg PO HS [facility] Last Admin: 03/31/20 21:19 Dose: 80 mg Documented by: Carvedilol (Coreg -) 12.5 mg PO BID [facility] Last Admin: 04/01/20 11:05 Dose: 12.5 mg Documented by: Glipizide (Glucotrol -) 5 mg PO DAILY@0700 [facility] Last Admin: 04/01/20 06:12 Dose: 5 mg Documented by: Sodium Chloride (1/2 Normal Saline) 1,000 mls @ 60 mls/hr IV ASDIR [facility] Last Admin: 04/01/20 04:00 Dose: 60 mls/hr Documented by: Meropenem 1 gm/ Dextrose 100 mls @ 200 mls/hr IVPB Q8H-IV [facility] Last Admin: 04/01/20 11:04 Dose: 200 mls/hr Documented by: Zolpidem Tartrate (Ambien -) 5 mg PO HS PRN PRN Reason: INSOMNIA Last Admin: 03/31/20 21:19 Dose: 5 mg Documented by: - Objective Vital Signs: Vital Signs Temperature 97.3 F L 04/01/20 05:50 Pulse Rate 74 04/01/20 05:50 Respiratory Rate 18 04/01/20 05:50 Blood Pressure 143/60 04/01/20 05:50 O2 Sat by Pulse Oximetry (%) 97 04/01/20 05:50 Constitutional: Yes: Calm, Mild Distress Eyes: Yes: Conjunctiva Clear HENT: Yes: Atraumatic, Normocephalic Cardiovascular: Yes: S1, S2 Respiratory: Yes: Regular, CTA Bilaterally Gastrointestinal: Yes: Normal Bowel Sounds, Soft Genitourinary: Yes: Dove Present, Hematuria Musculoskeletal: Yes: WNL Extremities: Yes: WNL Neurological: Yes: Alert, Oriented Psychiatric: Yes: Alert, Oriented Labs: CBC, BMP 03/31/20 21:00 04/01/20 09:10 INR, PTT INR 1.04 (0.83-1.09) 08/12/20 01:45 Assessment/Plan Problem List - Problems (1) Hematuria Code(s): R31.9 - HEMATURIA, UNSPECIFIED Qualifiers: Hematuria type: gross Qualified Code(s): R31.0 - Gross hematuria (2) Acute MA, inferior wall, initial episode of care Code(s): I21.19 - STEMI INVOLVING OTH CORONARY ARTERY OF INFERIOR WALL (3) Gntoz-kz-rvcxnaf kidney injury Code(s): N17.9 - ACUTE KIDNEY FAILURE, UNSPECIFIED; N18.9 - CHRONIC KIDNEY DISEASE, UNSPECIFIED Qualifiers: Chronic kidney disease stage: stage 2 (mild) (4) BPH (benign prostatic hyperplasia) Code(s): N40.0 - BENIGN PROSTATIC HYPERPLASIA WITHOUT LOWER URINRY TRACT SYMP (5) CKD (chronic kidney disease) Code(s): N18.9 - CHRONIC KIDNEY DISEASE, UNSPECIFIED (6) Calcaneal spur, right foot Code(s): M77.31 - CALCANEAL SPUR, RIGHT FOOT (7) Cystitis Code(s): N30.90 - CYSTITIS, UNSPECIFIED WITHOUT HEMATURIA (8) Dysuria Code(s): R30.0 - DYSURIA (9) HLD (hyperlipidemia) Code(s): E78.5 - HYPERLIPIDEMIA, UNSPECIFIED Qualifiers: Hyperlipidemia type: pure hypercholesterolemia Qualified Code(s): E78.00 - Pure hypercholesterolemia, unspecified; E78.0 - Pure hypercholesterolemia (10) Hypercholesterolemia Code(s): E78.00 - PURE HYPERCHOLESTEROLEMIA, UNSPECIFIED (11) Hypokalemia Code(s): E87.6 - HYPOKALEMIA (12) Lumbar radiculopathy, chronic Code(s): M54.16 - RADICULOPATHY, LUMBAR REGION (13) NSTEMI (non-ST elevated myocardial infarction) Code(s): I21.4 - NON-ST ELEVATION (NSTEMI) MYOCARDIAL INFARCTION (14) Obesity (BMI 30.0-34.9) Code(s): E66.9 - OBESITY, UNSPECIFIED (15) Presence of drug-eluting stent in right coronary artery Code(s): Z95.5 - PRESENCE OF CORONARY ANGIOPLASTY IMPLANT AND GRAFT (16) S/P TURP Code(s): Z90.79 - ACQUIRED ABSENCE OF OTHER GENITAL ORGAN(S) (17) Shingles (herpes zoster) polyneuropathy Code(s): B02.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 (18) Sleep apnea Code(s): G47.30 - SLEEP APNEA, UNSPECIFIED Qualifiers: Sleep apnea type: obstructive Qualified Code(s): G47.33 - Obstructive sleep apnea (adult) (pediatric) (19) Syncope Code(s): R55 - SYNCOPE AND COLLAPSE (20) UTI (urinary tract infection) Code(s): N39.0 - URINARY TRACT INFECTION, SITE NOT SPECIFIED Qualifiers: Urinary tract infection type: acute cystitis Hematuria presence: with hematuria Qualified Code(s): N30.01 - Acute cystitis with hematuria (21) Urinary retention Code(s): R33.9 - RETENTION OF URINE, UNSPECIFIED plan abx for or and cystoscopy transfusion as needed close w atch rest as per the team
--- NOTE | 2020-04-01 13:33 | OP ---
Operative Note - Note: Operative Date: 04/01/20 Pre-Operative Diagnosis: gross hematuria, clot urinary retention Operation: cystoscopy, fulguration of bleeding, evacuation of clots Findings: prostatic hemorrhage Post-Operative Diagnosis: Same as Pre-op (+ prostatic hemorrhage) Surgeon: Watson Jj Anesthesiologist/HARD METALS HAND ENGRAVER: Lyndsey Chapin MD Anesthesia: General Specimens Removed: blood clots Drains & Tubes with Location: [address] 30 ml aguilar Operative Report Dictated: Yes
[2020-04-01] MEDS ORDERED: fentaNYL CITRATE 250 MCG/5 ML VIAL ONE (13:46)
[2020-04-01] MEDS ORDERED: PROPOFOL 20 ML ONE (13:46)
[2020-04-01] MEDS ORDERED: SUCCINYLCHOLINE CHLORIDE 200 MG/10 ML SYRINGE ONE (13:47)
[2020-04-01] MEDS ORDERED: ROCURONIUM BROMIDE 50 MG/5 ML SYRINGE ONE (13:47)
[2020-04-01] MEDS ORDERED: ONDANSETRON 4 MG/2 ML VIAL IVPUSH PRN (15:04)
--- NOTE | 2020-04-01 15:24 | OP ---
DATE OF OPERATION: 04/01/2020 PREOPERATIVE DIAGNOSIS: Gross hematuria, clot urinary retention. POSTOPERATIVE DIAGNOSIS: Gross hematuria, clot urinary retention plus prostatic hemorrhage. PROCEDURE: Cystoscopy, fulguration of bleeding, evacuation of clot. SURGEON: Watson Hurley MD CEMETERY VAULT INSTALLER: None. ANESTHESIOLOGIST: JOSH Douglass ANESTHESIA: General via endotracheal tube. SPECIMEN: Blood clots. CULTURES: None. DRAINS: A 24-Lao 3-way Dove catheter, 30 mL balloon. ESTIMATED BLOOD LOSS: None. COMPLICATION: None. PROCDURE IN DETAIL: Patient was brought into the operating room, placed on the operating table in the supine position. After administration of general anesthesia via endotracheal tube, intravenous antibiotics were administered. Sequential compression devices were placed. Patient was placed in the dorsal lithotomy position. The perineum and genitals were prepped and draped in the usual sterile manner. The 26-Lao resectoscope sheath with visualizing obturator was inserted into bladder under direct vision. Anterior urethra was normal. The prostatic urethra demonstrated patient is status post TURP with some bleeding in the prostatic fossa. Bladder was entered. Copious clots were evacuated. The bladder was then thoroughly inspected. There were no foreign bodies, tumors, stones. There was some inflammation related to Dove catheter. Both ureteral orifices were in the usual location with clear efflux bilaterally. The prostatic fossa was now cauterized with the button and hemostasis assured. All clots were removed. The bladder was left full. Instruments removed. A 24-Lao 3-way Dove catheter was inserted, 30 mL placed in the balloon, placed on continuous bladder irrigation, returned clear. He tolerated the procedure well, was transferred to recovery in stable condition. WATSON HURLEY M.D. [id number]
[2020-04-01] MEDS ORDERED: SODIUM CHLORIDE 0.45% 1,000 ML IV SCH (18:20)
[2020-04-01] MEDS ORDERED: morphine SULFATE 4 MG/ML VIAL IVPUSH ONE (20:30)
[2020-04-01 21:00] LABS: BASO % 0.1 % (0-2.0); HEMOGLOBIN 7.9 GM/dL (11.7-16.9); LYMPH % 5.3 % (8-40); MCH 28.8 pg (25.7-33.7); MCHC 32.8 g/dl (32.0-35.9); MEAN CELL VOLUME 87.7 fl (80-96); MEAN PLT VOLUME 8.6 fl (7.5-11.1); MONO % 1.7 % (3.8-10.2); NEUT % 92.9 % (42.8-82.8); PLATELET COUNT 231 K/MM3 (134-434); RBC 2.73 M/mm3 (4.00-5.60); RDW 16.4 % (11.9-15.9); WHITE BLOOD COUNT 13.6 K/mm3 (4.0-10.0)
[2020-04-01] MEDS: ATORVASTATIN CA 80 MG TABLET (FP) PO SCH (21:46)
[2020-04-01] MEDS: ZOLPIDEM TARTRATE 5 MG TABLET PO PRN (21:46)
[2020-04-01 21:54] LABS: ANISOCYTOSIS 1+; MACROCYTOSIS 0; PLATELET ESTIMATE NORMAL
[2020-04-02] MEDS ORDERED: DEXTROSE 5%-WATER 100 ML IVPB ONE ×3 (02:22→16:35)
[2020-04-02] MEDS ORDERED: MEROPENEM 1 GM VIAL (RESTRICTED TO ID) IVPB ONE ×3 (02:22→16:35)
[2020-04-02] MEDS: FUROSEMIDE 40 MG/4 ML INJECTABLE VIAL IVPUSH PRN ×2 (03:24→09:14)
[2020-04-02] MEDS: MEROPENEM 1 GM in DEXTROSE 5%-WATER 100 ML IVPB SCH ×3 (03:25→17:04)
[2020-04-02] MEDS: ACETAMINOPHEN 325 MG TABLET (FP) PO SCH ×3 (06:38→21:01)
[2020-04-02] MEDS: glipiZIDE 5 MG TABLET (FP) PO SCH (06:39)
[2020-04-02 07:38] LABS: BASO % 0.3 % (0-2.0); HEMATOCRIT 27.9 % (35.4-49); HEMOGLOBIN 9.6 GM/dL (11.7-16.9); LYMPH % 10.8 % (8-40); MCH 30.3 pg (25.7-33.7); MCHC 34.3 g/dl (32.0-35.9); MEAN CELL VOLUME 88.4 fl (80-96); MEAN PLT VOLUME 8.4 fl (7.5-11.1); MONO % 4.3 % (3.8-10.2); NEUT % 84.6 % (42.8-82.8); PLATELET COUNT 187 K/MM3 (134-434); RBC 3.16 M/mm3 (4.00-5.60); RDW 15.9 % (11.9-15.9); WHITE BLOOD COUNT 8.9 K/mm3 (4.0-10.0)
[2020-04-02 08:01] LABS: BLOOD UREA NITROGEN 50.4 mg/dL (7-18); CALCIUM 8.3 mg/dL (8.5-10.1); CREATININE 2.6 mg/dL (0.55-1.3); POTASSIUM 4.1 mmol/L (3.5-5.1)
--- NOTE | 2020-04-02 08:01 | PN ---
Progress Note, Physician History of Present Illness: This is a 74 year old male with a past medical history of hypertension, hyperlipidemia, coronary artery disease s/p stent in 2018 at [facility], COPD, hx of PE, Type 2 DM, pulmonary fibrosis and BPH s/p TURP 02/23/2020 c/b sepsis source and BILL post TURP despite prophylactic cipro, s/p cysto/evac clots/fulguration of bleeding vessels, d/jose with indwelling catheter for urinary retention presented for urinary retention, recurrent hematuria, urinary retention and suprapubic pain after resuming DAPT, started CBI which subsequently clotted off, underwent cystoscopy, fulguration of bleeding, evacuation of clots, found to have prostatic hemorrhage requiring 2 u pRBC transfusion, hematuria clearing. Last visit 02/16/2020 for pre-procedure CV evaluation. Covid +. - Current Medication List Current Medications: Active Medications Acetaminophen (Tylenol -) 650 mg PO TID [facility] Last Admin: 04/02/20 06:38 Dose: 650 mg Documented by: Atorvastatin Calcium (Lipitor -) 80 mg PO HS [facility] Last Admin: 04/01/20 21:46 Dose: 80 mg Documented by: Carvedilol (Coreg -) 12.5 mg PO BID [facility] Last Admin: 04/01/20 21:46 Dose: 12.5 mg Documented by: Furosemide (Lasix Injection -) 20 mg IVPUSH POSTTR PRN PRN Reason: AFTER EACH UNIT OF TRANSFUSION Last Admin: 04/02/20 03:24 Dose: 20 mg Documented by: Glipizide (Glucotrol -) 5 mg PO DAILY@0700 [facility] Last Admin: 04/02/20 06:39 Dose: 5 mg Documented by: Lactated Ringer's (Lactated Ringers Solution) 1,000 mls @ 75 mls/hr IV ASDIR RYLAN Meropenem 1 gm/ Dextrose 100 mls @ 200 mls/hr IVPB Q8H-IV [facility] Last Admin: 04/02/20 03:25 Dose: 200 mls/hr Documented by: Sodium Chloride (1/2 Normal Saline) 1,000 mls @ 60 mls/hr IV ASDIR RYLAN Ondansetron HCl (Zofran Injection) 4 mg IVPUSH Q6H PRN PRN Reason: NAUSEA AND/OR VOMITING Zolpidem Tartrate (Ambien -) 5 mg PO HS PRN PRN Reason: INSOMNIA Last Admin: 04/01/20 21:46 Dose: 5 mg Documented by: - Objective Vital Signs: Vital Signs Temperature 97.7 F 04/02/20 06:00 Pulse Rate 74 04/02/20 06:00 Respiratory Rate 20 04/02/20 06:00 Blood Pressure 149/66 04/02/20 06:00 O2 Sat by Pulse Oximetry (%) 98 04/02/20 06:00 Constitutional: Yes: No Distress, Calm Genitourinary: Yes: Dove Present, Hematuria Labs: CBC, BMP 04/02/20 07:20 INR, PTT INR 1.04 (0.83-1.09) 03/31/20 01:45 Problem List - Problems (1) Hematuria Code(s): R31.9 - HEMATURIA, UNSPECIFIED Qualifiers: Hematuria type: gross Qualified Code(s): R31.0 - Gross hematuria (2) Qezpj-mw-ljwvdrp kidney injury Code(s): N17.9 - ACUTE KIDNEY FAILURE, UNSPECIFIED; N18.9 - CHRONIC KIDNEY DISEA SE, UNSPECIFIED Qualifiers: Chronic kidney disease stage: stage 2 (mild) (3) Coronary artery disease Code(s): I25.10 - ATHSCL HEART DISEASE OF [place] CORONARY ARTERY W/O ANG PCTRS Qualifiers: Coronary Disease-Associated Artery/Lesion type: [place] artery [place] vs. transplanted heart: [place] heart Associated angina: without angina Qualified Code(s): I25.10 - Atherosclerotic heart disease of [place] coronary artery without angina pectoris (4) Dove catheter problem Code(s): T83.9XXA - UNSP COMPLICATION OF GENITOURINARY PROSTH DEV/GRFT, INIT Qualifiers: Encounter type: initial encounter Qualified Code(s): T83.9XXA - Unspecified complication of genitourinary prosthetic device, implant and graft, initial encounter (5) HLD (hyperlipidemia) Code(s): E78.5 - HYPERLIPIDEMIA, UNSPECIFIED Qualifiers: Hyperlipidemia type: pure hypercholesterolemia Qualified Code(s): E78.00 - Pure hypercholesterolemia, unspecified; E78.0 - Pure hypercholesterolemia (6) Hypertensive heart disease Code(s): I11.9 - HYPERTENSIVE HEART DISEASE WITHOUT HEART FAILURE Qualifiers: Heart failure presence: without heart failure Qualified Code(s): I11.9 - Hypertensive heart disease without heart failure (7) Presence of drug-eluting stent in right coronary artery Code(s): Z95.5 - PRESENCE OF CORONARY ANGIOPLASTY IMPLANT AND GRAFT (8) S/P TURP Code(s): Z90.79 - ACQUIRED ABSENCE OF OTHER GENITAL ORGAN(S) (9) Sleep apnea Code(s): G47.30 - SLEEP APNEA, UNSPECIFIED Qualifiers: Sleep apnea type: obstructive Qualified Code(s): G47.33 - Obstructive sleep apnea (adult) (pediatric) (10) UTI (urinary tract infection) Code(s): N39.0 - URINARY TRACT INFECTION, SITE NOT SPECIFIED Qualifiers: Urinary tract infection type: acute cystitis Hematuria presence: with hematuria Qualified Code(s): N30.01 - Acute cystitis with hematuria (11) Urinary retention Code(s): R33.9 - RETENTION OF URINE, UNSPECIFIED Assessment/Plan 05/20/2018 Nuc stress: Mod inferior ischemia with small infarct, LVEF 52% 05/20/2018 Echo: Normal LV size with mod cLVH, LVEF 55-60%, mild LAE, mod MR, tr TR 05/21/2018 [facility] performed at [facility] [place]/NSTEMI and moderate inferior i schemia. 2 vessel CAD 90-95% ostial LCx-OM (medium sized vessel) left alone, 90- 95% prox RCA which was treated with implant Resolute [place] 4.0x18 mm FISH post- dilated with NC 4.5x15 balloon @ 14 SARAHY, normal LV fxn LVEF 65-70% with elevated LVEDP 27 mmHg, no aortic stenosis. Mynx deployed right PAYROLL SECRETARY access site, no complications. Recommend optimal medical therapy for secondary prevention of cardiovascular disease, consider PCI of LCx-OM if remains symptomatic despite meds, patient is candidate for cardiac rehab. 1. Recurrent hematuria, clots and urinary retention s/p cystoscopy, fulguration of bleeding, evacuation of clots 2. R/o recurrent Sepsis source post TURP s/p cysto/evac clots/fulguration bleeding vessels 3. COPD, pulm fibrosis 4. CAD s/p FISH RCA 5. Diastolic dysfunction 6. Type 2 DM 7. Acute on CKD (obstructive) with proteinuria 8. OSAS on cpap 9. Hypertensive heart disease 10. Hyperlipidemia 11 H/o PE 12. COVID + 13. Acute blood loss anemia post transfusion PLAN: 1. CBI until clear 2. Hold ASA and Plavix until hematuria resolves (FISH placed 2017) then restart Plavix alone given recurrent hematuria, monitor Hgb post transfusion 3. Continue Lipitor 80 qd 4. Continue Carvedilol 12.5 bid 5. Hold Cozaar 50 qd and furosemide 40 qd pending renal recovery 6. Continue Norvasc 10 qd 7. Empiric antibiotic course as per ID team 8. BD, O2 as needed, cpap nightly
--- NOTE | 2020-04-02 08:57 | PN ---
Progress Note, Physician History of Present Illness: Pt had Finished 2 units of PRBC Overnight Pt had lot of blood clots No Fever Bun/Creat High Pt will be on RL IV fluids No SOB Dr Méndez for pul consult - Current Medication List Current Medications: Active Medications Acetaminophen (Tylenol -) 650 mg PO TID [facility] Last Admin: 04/02/20 06:38 Dose: 650 mg Documented by: Atorvastatin Calcium (Lipitor -) 80 mg PO HS [facility] Last Admin: 04/01/20 21:46 Dose: 80 mg Documented by: Carvedilol (Coreg -) 12.5 mg PO BID [facility] Last Admin: 04/01/20 21:46 Dose: 12.5 mg Documented by: Furosemide (Lasix Injection -) 20 mg IVPUSH POSTTR PRN PRN Reason: AFTER EACH UNIT OF TRANSFUSION Last Admin: 04/02/20 03:24 Dose: 20 mg Documented by: Glipizide (Glucotrol -) 5 mg PO DAILY@0700 [facility] Last Admin: 04/02/20 06:39 Dose: 5 mg Documented by: Lactated Ringer's (Lactated Ringers Solution) 1,000 mls @ 75 mls/hr IV ASDIR RYLAN Meropenem 1 gm/ Dextrose 100 mls @ 200 mls/hr IVPB Q8H-IV [facility] Last Admin: 04/02/20 03:25 Dose: 200 mls/hr Documented by: Sodium Chloride (1/2 Normal Saline) 1,000 mls @ 60 mls/hr IV ASDIR [facility] Ondansetron HCl (Zofran Injection) 4 mg IVPUSH Q6H PRN PRN Reason: NAUSEA AND/OR VOMITING Zolpidem Tartrate (Ambien -) 5 mg PO HS PRN PRN Reason: INSOMNIA Last Admin: 04/01/20 21:46 Dose: 5 mg Documented by: - Objective Vital Signs: Vital Signs Temperature 97.7 F 04/02/20 06:00 Pulse Rate 74 04/02/20 06:00 Respiratory Rate 20 04/02/20 06:00 Blood Pressure 149/66 04/02/20 06:00 O2 Sat by Pulse Oximetry (%) 98 04/02/20 06:00 Labs: CBC, BMP 04/02/20 07:20 04/02/20 07:20 INR, PTT INR 1.04 (0.83-1.09) 03/31/20 01:45 Problem List - Problems (1) Hematuria Code(s): R31.9 - HEMATURIA, UNSPECIFIED Qualifiers: Hematuria type: gross Qualified Code(s): R31.0 - Gross hematuria (2) Acute [place], inferior wall, initial episode of care Code(s): I21.19 - STEMI INVOLVING OTH CORONARY ARTERY OF INFERIOR WALL (3) Pzecq-wq-serotfc kidney injury Code(s): N17.9 - ACUTE KIDNEY FAILURE, UNSPECIFIED; N18.9 - CHRONIC KIDNEY DISEASE, UNSPECIFIED Qualifiers: Chronic kidney disease stage: stage 2 (mild) (4) BPH (benign prostatic hyperplasia) Code(s): N40.0 - BENIGN PROSTATIC HYPERPLASIA WITHOUT LOWER URINRY TRACT SYMP (5) CKD (chronic kidney disease) Code(s): N18.9 - CHRONIC KIDNEY DISEASE, UNSPECIFIED (6) Calcaneal spur, right foot Code(s): M77.31 - CALCANEAL SPUR, RIGHT FOOT (7) Cystitis Code(s): N30.90 - CYSTITIS, UNSPECIFIED WITHOUT HEMATURIA (8) Dysuria Code(s): R30.0 - DYSURIA (9) HLD (hyperlipidemia) Code(s): E78.5 - HYPERLIPIDEMIA, UNSPECIFIED Qualifiers: Hyperlipidemia type: pure hypercholesterolemia Qualified Code(s): E78.00 - Pure hypercholesterolemia, unspecified; E78.0 - Pure hypercholesterolemia (10) Hypercholesterolemia Code(s): E78.00 - PURE HYPERCHOLESTEROLEMIA, UNSPECIFIED (11) Hypokalemia Code(s): E87.6 - HYPOKALEMIA (12) Lumbar radiculopathy, chronic Code(s): M54.16 - RADICULOPATHY, LUMBAR REGION (13) NSTEMI (non-ST elevated myocardial infarction) Code(s): I21.4 - NON-ST ELEVATION (NSTEMI) MYOCARDIAL INFARCTION (14) Obesity (BMI 30.0-34.9) Code(s): E66.9 - OBESITY, UNSPECIFIED (15) Presence of drug-eluting stent in right coronary artery Code(s): Z95.5 - PRESENCE OF CORONARY ANGIOPLASTY IMPLANT AND GRAFT (16) S/P TURP Code(s): Z90.79 - ACQUIRED ABSENCE OF OTHER GENITAL ORGAN(S) (17) Shingles (herpes zoster) polyneuropathy Code(s): B02.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 (18) Sleep apnea Code(s): G47.30 - SLEEP APNEA, UNSPECIFIED Qualifiers: Sleep apnea type: obstructive Qualified Code(s): G47.33 - Obstructive sleep apnea (adult) (pediatric) (19) Syncope Code(s): R55 - SYNCOPE AND COLLAPSE (20) UTI (urinary tract infection) Code(s): N39.0 - URINARY TRACT INFECTION, SITE NOT SPECIFIED Qualifiers: Urinary tract infection type: acute cystitis Hematuria presence: with hematuria Qualified Code(s): N30.01 - Acute cystitis with hematuria (21) Urinary retention Code(s): R33.9 - RETENTION OF URINE, UNSPECIFIED
[2020-04-02] MEDS: CARVEDILOL 12.5 MG TABLET (FP) PO SCH ×2 (09:13→21:01)
--- NOTE | 2020-04-02 10:35 | PN ---
AMANDA Gamino Note Chief Complaint: pt w/o c/o History of Present Illness: POD #1 s/p cysto fulguration - Objective Vital Signs: Vital Signs Temperature 97.7 F 04/02/20 06:00 Pulse Rate 74 04/02/20 06:00 Respiratory Rate 20 04/02/20 06:00 Blood Pressure 149/66 04/02/20 06:00 O2 Sat by Pulse Oximetry (%) 98 04/02/20 06:00 Genitourinary: Yes: Dove Present, Hematuria (tinged cbi). No: Bladder Distention Labs/Additional Data: CBC, BMP 04/02/20 07:20 04/02/20 07:20 INR, PTT INR 1.04 (0.83-1.09) 03/31/20 01:45 Blood Type Blood Type A POSITIVE 03/31/20 11:55 Antibody Screen Negative 03/31/20 11:55 Problem List - Problems (1) Hematuria Assessment/Plan: cont cbi, Dr Nura olivares covering until 04/05 Code(s): R31.9 - HEMATURIA, UNSPECIFIED Qualifiers: Hematuria type: gross Qualified Code(s): R31.0 - Gross hematuria (2) Cystitis Code(s): N30.90 - CYSTITIS, UNSPECIFIED WITHOUT HEMATURIA
--- NOTE | 2020-04-02 11:07 | PN ---
Progress Note, Physician History of Present Illness: stable s/p cystofulgration - Current Medication List Current Medications: Active Medications Acetaminophen (Tylenol -) 650 mg PO TID [facility] Last Admin: 04/02/20 06:38 Dose: 650 mg Documented by: Atorvastatin Calcium (Lipitor -) 80 mg PO HS [facility] Last Admin: 04/01/20 21:46 Dose: 80 mg Documented by: Budesonide/Formoterol Fumarate (Symbicort 160/4.5mcg -) 2 puff IH BID [facility] Carvedilol (Coreg -) 12.5 mg PO BID [facility] Last Admin: 04/02/20 09:13 Dose: 12.5 mg Documented by: Glipizide (Glucotrol -) 5 mg PO DAILY@0700 [facility] Last Admin: 04/02/20 06:39 Dose: 5 mg Documented by: Lactated Ringer's (Lactated Ringers Solution) 1,000 mls @ 60 mls/hr IV ASDIR RYLAN Meropenem 1 gm/ Dextrose 100 mls @ 200 mls/hr IVPB Q8H-IV [facility] Last Admin: 04/02/20 09:13 Dose: 200 mls/hr Documented by: Sodium Chloride (1/2 Normal Saline) 1,000 mls @ 60 mls/hr IV ASDIR RYLAN Ondansetron HCl (Zofran Injection) 4 mg IVPUSH Q6H PRN PRN Reason: NAUSEA AND/OR VOMITING Umeclidinium/Vilanterol (Anoro Ellipta 62.5-25 Mcg Inh) 1 puff IH DAILY [facility] Zolpidem Tartrate (Ambien -) 5 mg PO HS PRN PRN Reason: INSOMNIA Last Admin: 04/01/20 21:46 Dose: 5 mg Documented by: - Objective Vital Signs: Vital Signs Temperature 97.7 F 04/02/20 06:00 Pulse Rate 74 04/02/20 06:00 Respiratory Rate 20 04/02/20 06:00 Blood Pressure 149/66 04/02/20 06:00 O2 Sat by Pulse Oximetry (%) 98 04/02/20 06:00 Constitutional: Yes: No Distress, Calm Cardiovascular: Yes: S1, S2 Respiratory: Yes: Regular, CTA Bilaterally Gastrointestinal: Yes: Normal Bowel Sounds, Soft Genitourinary: Yes: Dove Present Musculoskeletal: Yes: WNL Extremities: Yes: WNL Neurological: Yes: Alert, Oriented Psychiatric: Yes: Alert, Oriented Labs: CBC, BMP 04/02/20 07:20 04/02/20 07:20 INR, PTT INR 1.04 (0.83-1.09) 03/31/20 01:45 Assessment/Plan Problem List - Problems (1) Hematuria Code(s): R31.9 - HEMATURIA, UNSPECIFIED Qualifiers: Hematuria type: gross Qualified Code(s): R31.0 - Gross hematuria (2) Acute [place], inferior wall, initial episode of care Code(s): I21.19 - STEMI INVOLVING [facility] CORONARY ARTERY OF INFERIOR WALL (3) Yhidz-ac-naduyov kidney injury Code(s): N17.9 - ACUTE KIDNEY FAILURE, UNSPECIFIED; N18.9 - CHRONIC KIDNEY D ISEASE, UNSPECIFIED Qualifiers: Chronic kidney disease stage: stage 2 (mild) (4) BPH (benign prostatic hyperplasia) Code(s): N40.0 - BENIGN PROSTATIC HYPERPLASIA WITHOUT LOWER URINRY TRACT SYMP (5) CKD (chronic kidney disease) Code(s): N18.9 - CHRONIC KIDNEY DISEASE, UNSPECIFIED (6) Calcaneal spur, right foot Code(s): M77.31 - CALCANEAL SPUR, RIGHT FOOT (7) Cystitis Code(s): N30.90 - CYSTITIS, UNSPECIFIED WITHOUT HEMATURIA (8) Dysuria Code(s): R30.0 - DYSURIA (9) HLD (hyperlipidemia) Code(s): E78.5 - HYPERLIPIDEMIA, UNSPECIFIED Qualifiers: Hyperlipidemia type: pure hypercholesterolemia Qualified Code(s): E78.00 - Pure hypercholesterolemia, unspecified; E78.0 - Pure hypercholesterolemia (10) Hypercholesterolemia Code(s): E78.00 - PURE HYPERCHOLESTEROLEMIA, UNSPECIFIED (11) Hypokalemia Code(s): E87.6 - HYPOKALEMIA (12) Lumbar radiculopathy, chronic Code(s): M54.16 - RADICULOPATHY, LUMBAR REGION (13) NSTEMI (non-ST elevated myocardial infarction) Code(s): I21.4 - NON-ST ELEVATION (NSTEMI) MYOCARDIAL INFARCTION (14) Obesity (BMI 30.0-34.9) Code(s): E66.9 - OBESITY, UNSPECIFIED (15) Presence of drug-eluting stent in right coronary artery Code(s): Z95.5 - PRESENCE OF CORONARY ANGIOPLASTY IMPLANT AND GRAFT (16) S/P TURP Code(s): Z90.79 - ACQUIRED ABSENCE OF OTHER GENITAL ORGAN(S) (17) Shingles (herpes zoster) polyneuropathy Code(s): B02.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 (18) Sleep apnea Code(s): G47.30 - SLEEP APNEA, UNSPECIFIED Qualifiers: Sleep apnea type: obstructive Qualified Code(s): G47.33 - Obstructive sleep apnea (adult) (pediatric) (19) Syncope Code(s): R55 - SYNCOPE AND COLLAPSE (20) UTI (urinary tract infection) Code(s): N39.0 - URINARY TRACT INFECTION, SITE NOT SPECIFIED Qualifiers: Urinary tract infection type: acute cystitis Hematuria presence: with hematuria Qualified Code(s): N30.01 - Acute cystitis with hematuria (21) Urinary retention Code(s): R33.9 - RETENTION OF URINE, UNSPECIFIED plan abx rest as per urology monitor hematuria rest as per the team
[2020-04-02] MEDS: BUDESONIDE/FORMETEROL FUMARATE 160/4.5 mcg INHALER IH SCH ×2 (12:17→21:02)
[2020-04-02] MEDS: UMECLIDINIUM/VILANTEROL (ANORO) 62.5/25 MCG INHALER IH SCH (12:17)
[2020-04-02 13:58] VITALS: BMI 30.2
[2020-04-02] MEDS: LACTATED RINGERS SOLUTION 1,000 ML IV SCH ×2 (14:48→20:10)
--- NOTE | 2020-04-02 15:43 | EKG ---
Test Reason : Blood Pressure : / mmHG Vent. Rate : 069 BPM Atrial Rate : 069 BPM P-R Int : 152 ms QRS Dur : 136 ms QT Int : 450 ms P-R-T Axes : 054 -16 -13 degrees QTc Int : 482 ms NORMAL SINUS RHYTHM WITH SINUS ARRHYTHMIA RIGHT BUNDLE BRANCH BLOCK ABNORMAL ECG WHEN COMPARED WITH ECG OF 31-MAR-2020 06:29, NO SIGNIFICANT CHANGE WAS FOUND Confirmed by TIN KAUR MD ([id number]) on 04/02/2020 3:43:16 PM Referred By: Confirmed By:TIN KAUR MD
--- NOTE | 2020-04-02 15:50 | PN ---
Progress Note (short form) - Note Progress Note: PULMONARY CONSULTATION DICTATED 04/02/20 IMP HEMATURIA/URINARY RETENTION S/P CYSTO/FULGURATION OF BLEEDING EVACUATION OF CLOTS SECONDARY TO PROSTATIC HEMORRHAGE H/O COVID COMPLICATED BY ACUTE RESPIRATORY FAILURE,?PE ASHD S/P STENT' COPD PULMONARY FIBROSIS HTN HLD H/O PE S/P TURP 02/23/20 ACUTE ON CHRONOC KIDNEY DISEASE KENN ON CPAP 7 PLAN O2 NEEDED INHALED BRONCHODILATORS ABX PER ID COVID ANTIBODIES CHEST CT DR OJEDA Problem List - Problems (1) COVID-19 Code(s): U07.1 - COVID POSITIVE (2) BILL (acute kidney injury) Code(s): N17.9 - ACUTE KIDNEY FAILURE, UNSPECIFIED (3) Hematuria Code(s): R31.9 - HEMATURIA, UNSPECIFIED Qualifiers: Hematuria type: gross Qualified Code(s): R31.0 - Gross hematuria (4) Dkzeg-it-rymgpyq kidney injury Code(s): N17.9 - ACUTE KIDNEY FAILURE, UNSPECIFIED; N18.9 - CHRONIC KIDNEY DISEASE, UNSPECIFIED Qualifiers: Chronic kidney disease stage: stage 2 (mild) (5) BPH (benign prostatic hyperplasia) Code(s): N40.0 - BENIGN PROSTATIC HYPERPLASIA WITHOUT LOWER URINRY TRACT SYMP (6) COPD (chronic obstructive pulmonary disease) with acute bronchitis Code(s): J44.0 - CHR OBSTRUCTIVE PULMON DISEASE WITH (ACUTE) LOWER RESP INFCT; J20.9 - ACUTE BRONCHITIS, UNSPECIFIED (7) Coronary artery disease Code(s): I25.10 - ATHSCL HEART DISEASE OF [place] CORONARY ARTERY W/O ANG PCTRS Qualifiers: Coronary Disease-Associated Artery/Lesion type: [place] artery [place] vs. transplanted heart: [place] heart Associated angina: without angina Qualified Code(s): I25.10 - Atherosclerotic heart disease of [place] coronary artery without angina pectoris (8) HLD (hyperlipidemia) Code(s): E78.5 - HYPERLIPIDEMIA, UNSPECIFIED Qualifiers: Hyperlipidemia type: pure hypercholesterolemia Qualified Code(s): E78.00 - Pure hypercholesterolemia, unspecified; E78.0 - Pure hypercholesterolemia (9) Hematuria Code(s): R31.9 - HEMATURIA, UNSPECIFIED Qualifiers: Hematuria type: gross Qualified Code(s): R31.0 - Gross hematuria (10) Obesity (BMI 30.0-34.9) Code(s): E66.9 - OBESITY, UNSPECIFIED (11) S/P TURP Code(s): Z90.79 - ACQUIRED ABSENCE OF OTHER GENITAL ORGAN(S) (12) Sleep apnea Code(s): G47.30 - SLEEP APNEA, UNSPECIFIED Qualifiers: Sleep apnea type: obstructive Qualified Code(s): G47.33 - Obstructive sleep apnea (adult) (pediatric) (13) Urinary retention Code(s): R33.9 - RETENTION OF URINE, UNSPECIFIED (14) Pulmonary fibrosis Code(s): J84.10 - PULMONARY FIBROSIS, UNSPECIFIED
[2020-04-02] MEDS ORDERED: PT OWN MED DRAWER 7, Y5N ONE (20:47)
[2020-04-02] MEDS: ATORVASTATIN CA 80 MG TABLET (FP) PO SCH (21:02)
[2020-04-02] MEDS: ZOLPIDEM TARTRATE 5 MG TABLET PO PRN (21:16)
[2020-04-02] MEDS: DOCUSATE SODIUM 100 MG CAPSULE (FP) PO PRN (21:43)
[2020-04-03] MEDS ORDERED: MEROPENEM 1 GM VIAL (RESTRICTED TO ID) IVPB ONE ×4 (01:01→22:32)
[2020-04-03] MEDS ORDERED: DEXTROSE 5%-WATER 100 ML IVPB ONE ×4 (01:01→22:33)
[2020-04-03] MEDS: MEROPENEM 1 GM in DEXTROSE 5%-WATER 100 ML IVPB SCH ×3 (01:02→18:11)
[2020-04-03] MEDS: ACETAMINOPHEN 325 MG TABLET (FP) PO SCH ×3 (06:04→22:20)
[2020-04-03] MEDS: glipiZIDE 5 MG TABLET (FP) PO SCH (06:04)
[2020-04-03 06:37] LABS: BASO % 0.5 % (0-2.0); EOS % 0.4 % (0-4.5); HEMATOCRIT 26.2 % (35.4-49); HEMOGLOBIN 9.2 GM/dL (11.7-16.9); LYMPH % 13.6 % (8-40); MCH 29.9 pg (25.7-33.7); MEAN CELL VOLUME 85.5 fl (80-96); MEAN PLT VOLUME 7.9 fl (7.5-11.1); MONO % 8.3 % (3.8-10.2); NEUT % 77.2 % (42.8-82.8); PLATELET COUNT 220 K/MM3 (134-434); RBC 3.06 M/mm3 (4.00-5.60); RDW 15.3 % (11.9-15.9)
[2020-04-03 06:58] LABS: BLOOD UREA NITROGEN 43.8 mg/dL (7-18); CALCIUM 8.3 mg/dL (8.5-10.1); CREATININE 1.9 mg/dL (0.55-1.3); POTASSIUM 3.1 mmol/L (3.5-5.1)
[2020-04-03] MEDS: UMECLIDINIUM/VILANTEROL (ANORO) 62.5/25 MCG INHALER IH SCH (09:54)
[2020-04-03] MEDS: BUDESONIDE/FORMETEROL FUMARATE 160/4.5 mcg INHALER IH SCH ×2 (09:54→22:21)
[2020-04-03] MEDS: CARVEDILOL 12.5 MG TABLET (FP) PO SCH ×2 (09:54→22:20)
--- NOTE | 2020-04-03 10:13 | PN ---
Progress Note, Physician History of Present Illness: Pt still having Blood clots This morning Irrigated by Nurse and by Dr Jj Urology But clots are relatively better. Hb is stable. we will Discuss with urology Resumed Norvasc 10 mg daily since BP is high. No Fever WBC is trending down Dr Stephany Bedolla FU noted. Pt is on Isolation but asymptomatic Pt having Multiple times blocks due to clots spoke with Family today for 30 mts advised all family members to get tested though they are asymptomatic we will FU closely - Current Medication List Current Medications: Active Medications Acetaminophen (Tylenol -) 650 mg PO TID [facility] Last Admin: 04/03/20 06:04 Dose: 650 mg Documented by: Atorvastatin Calcium (Lipitor -) 80 mg PO HS [facility] Last Admin: 04/02/20 21:02 Dose: 80 mg Documented by: Budesonide/Formoterol Fumarate (Symbicort 160/4.5mcg -) 2 puff IH BID [facility] Last Admin: 04/03/20 09:54 Dose: 2 puff Documented by: Carvedilol (Coreg -) 12.5 mg PO BID [facility] Last Admin: 04/03/20 09:54 Dose: 12.5 mg Documented by: Docusate Sodium (Colace -) 100 mg PO Q12H PRN PRN Reason: CONSTIPATION Last Admin: 04/02/20 21:43 Dose: 100 mg Documented by: Glipizide (Glucotrol -) 5 mg PO DAILY@0700 [facility] Last Admin: 04/03/20 06:04 Dose: 5 mg Documented by: Lactated Ringer's (Lactated Ringers Solution) 1,000 mls @ 60 mls/hr IV ASDIR [facility] Last Admin: 04/02/20 20:10 Dose: 60 mls/hr Documented by: Meropenem 1 gm/ Dextrose 100 mls @ 200 mls/hr IVPB Q8H-IV [facility] Last Admin: 04/03/20 09:54 Dose: 200 mls/hr Documented by: Ondansetron HCl (Zofran Injection) 4 mg IVPUSH Q6H PRN PRN Reason: NAUSEA AND/OR VOMITING Umeclidinium/Vilanterol (Anoro Ellipta 62.5-25 Mcg Inh) 1 puff IH DAILY [facility] Last Admin: 04/03/20 09:54 Dose: 1 puff Documented by: - Objective Vital Signs: Vital Signs Temperature 97.8 F 04/03/20 09:44 Pulse Rate 80 04/03/20 09:44 Respiratory Rate 20 04/03/20 09:44 Blood Pressure 173/79 H 04/03/20 09:44 O2 Sat by Pulse Oximetry (%) 100 04/03/20 09:44 Constitutional: Yes: No Distress Eyes: Yes: Conjunctiva Clear, EOM Intact HENT: Yes: Atraumatic, Normocephalic Neck: Yes: Supple, Trachea Midline Cardiovascular: Yes: Regular Rate and Rhythm Respiratory: Yes: Regular, CTA Bilaterally Gastrointestinal: Yes: Normal Bowel Sounds, Soft Musculoskeletal: Yes: Joint Stiffness Edema: No Peripheral Pulses WNL: Yes Neurological: Yes: Alert, Oriented, Cran Nerves II-XII Intact Labs: CBC, BMP 04/03/20 06:21 04/03/20 06:21 INR, PTT INR 1.04 (0.83-1.09) 03/31/20 01:45 Problem List - Problems (1) Hematuria Code(s): R31.9 - HEMATURIA, UNSPECIFIED Qualifiers: Hematuria type: gross Qualified Code(s): R31.0 - Gross hematuria (2) Acute [place], inferior wall, initial episode of care Code(s): I21.19 - STEMI INVOLVING OTH CORONARY ARTERY OF INFERIOR WALL (3) Vlvlu-fm-pjtzlwm kidney injury Code(s): N17.9 - ACUTE KIDNEY FAILURE, UNSPECIFIED; N18.9 - CHRONIC KIDNEY DISEASE, UNSPECIFIED Qualifiers: Chronic kidney disease stage: stage 2 (mild) (4) BPH (benign prostatic hyperplasia) Code(s): N40.0 - BENIGN PROSTATIC HYPERPLASIA WITHOUT LOWER URINRY TRACT SYMP (5) CKD (chronic kidney disease) Code(s): N18.9 - CHRONIC KIDNEY DISEASE, UNSPECIFIED (6) Calcaneal spur, right foot Code(s): M77.31 - CALCANEAL SPUR, RIGHT FOOT (7) Cystitis Code(s): N30.90 - CYSTITIS, UNSPECIFIED WITHOUT HEMATURIA (8) Dysuria Code(s): R30.0 - DYSURIA (9) HLD (hyperlipidemia) Code(s): E78.5 - HYPERLIPIDEMIA, UNSPECIFIED Qualifiers: Hyperlipidemia type: pure hypercholesterolemia Qualified Code(s): E78.00 - Pure hypercholesterolemia, unspecified; E78.0 - Pure hypercholesterolemia (10) Hypercholesterolemia Code(s): E78.00 - PURE HYPERCHOLESTEROLEMIA, UNSPECIFIED (11) Hypokalemia Code(s): E87.6 - HYPOKALEMIA (12) Lumbar radiculopathy, chronic Code(s): M54.16 - RADICULOPATHY, LUMBAR REGION (13) NSTEMI (non-ST elevated myocardial infarction) Code(s): I21.4 - NON-ST ELEVATION (NSTEMI) MYOCARDIAL INFARCTION (14) Obesity (BMI 30.0-34.9) Code(s): E66.9 - OBESITY, UNSPECIFIED (15) Presence of drug-eluting stent in right coronary artery Code(s): Z95.5 - PRESENCE OF CORONARY ANGIOPLASTY IMPLANT AND GRAFT (16) S/P TURP Code(s): Z90.79 - ACQUIRED ABSENCE OF OTHER GENITAL ORGAN(S) (17) Shingles (herpes zoster) polyneuropathy Code(s): B02.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 (18) Sleep apnea Code(s): G47.30 - SLEEP APNEA, UNSPECIFIED Qualifiers: Sleep apnea type: obstructive Qualified Code(s): G47.33 - Obstructive sleep apnea (adult) (pediatric) (19) Syncope Code(s): R55 - SYNCOPE AND COLLAPSE (20) UTI (urinary tract infection) Code(s): N39.0 - URINARY TRACT INFECTION, SITE NOT SPECIFIED Qualifiers: Urinary tract infection type: acute cystitis Hematuria presence: with hematuria Qualified Code(s): N30.01 - Acute cystitis with hematuria (21) Urinary retention Code(s): R33.9 - RETENTION OF URINE, UNSPECIFIED Assessment/Plan Hematuria / clots s/p Cysto/fulguration of bleed POD#2 Complicated UTI Urinary retention BILL/CKD Indwelling Dove catheter
[2020-04-03] MEDS ORDERED: hydrALAZINE HCL 25 MG TABLET (FP) PO SCH (10:15)
[2020-04-03] MEDS: amLODIPine BESYLATE 10 MG TABLET (FP) PO SCH (10:53)
--- NOTE | 2020-04-03 11:27 | PN ---
Progress Note, Physician Chief Complaint: Events noted Not in distress History of Present Illness: Patient was seen and examined. Awake and alert. Chart was reviewed Denies chest pain, SOB or palpitations Hematuria - Current Medication List Current Medications: Active Medications Acetaminophen (Tylenol -) 650 mg PO TID [facility] Last Admin: 04/03/20 06:04 Dose: 650 mg Documented by: Amlodipine Besylate (Norvasc -) 10 mg PO DAILY [facility] Last Admin: 04/03/20 10:53 Dose: 10 mg Documented by: Atorvastatin Calcium (Lipitor -) 80 mg PO HS [facility] Last Admin: 04/02/20 21:02 Dose: 80 mg Documented by: Budesonide/Formoterol Fumarate (Symbicort 160/4.5mcg -) 2 puff IH BID [facility] Last Admin: 04/03/20 09:54 Dose: 2 puff Documented by: Carvedilol (Coreg -) 12.5 mg PO BID [facility] Last Admin: 04/03/20 09:54 Dose: 12.5 mg Documented by: Docusate Sodium (Colace -) 100 mg PO Q12H PRN PRN Reason: CONSTIPATION Last Admin: 04/02/20 21:43 Dose: 100 mg Documented by: Glipizide (Glucotrol -) 5 mg PO DAILY@0700 [facility] Last Admin: 04/03/20 06:04 Dose: 5 mg Documented by: Lactated Ringer's (Lactated Ringers Solution) 1,000 mls @ 60 mls/hr IV ASDIR [facility] Last Admin: 04/02/20 20:10 Dose: 60 mls/hr Documented by: Meropenem 1 gm/ Dextrose 100 mls @ 200 mls/hr IVPB Q8H-IV [facility] Last Admin: 04/03/20 09:54 Dose: 200 mls/hr Documented by: Ondansetron HCl (Zofran Injection) 4 mg IVPUSH Q6H PRN PRN Reason: NAUSEA AND/OR VOMITING Umeclidinium/Vilanterol (Anoro Ellipta 62.5-25 Mcg Inh) 1 puff IH DAILY [facility] Last Admin: 04/03/20 09:54 Dose: 1 puff Documented by: - Objective Vital Signs: Vital Signs Temperature 97.8 F 04/03/20 09:44 Pulse Rate 80 04/03/20 09:44 Respiratory Rate 20 04/03/20 09:44 Blood Pressure 173/79 H 04/03/20 09:44 O2 Sat by Pulse Oximetry (%) 100 04/03/20 09:44 Eyes: Yes: PERRL HENT: Yes: Atraumatic Neck: Yes: Supple Cardiovascular: Yes: Regular Rate and Rhythm, S1, S2 Respiratory: Yes: CTA Bilaterally Gastrointestinal: Yes: Normal Bowel Sounds, Soft. No: Tenderness Genitourinary: Yes: Hematuria Edema: No Labs: CBC, BMP 04/03/20 06:21 04/03/20 06:21 INR, PTT INR 1.04 (0.83-1.09) 03/31/20 01:45 Problem List - Problems (1) COVID-19 Code(s): U07.1 - COVID POSITIVE (2) Hematuria Code(s): R31.9 - HEMATURIA, UNSPECIFIED Qualifiers: Hematuria type: gross Qualified Code(s): R31.0 - Gross hematuria (3) Pulmonary fibrosis Code(s): J84.10 - PULMONARY FIBROSIS, UNSPECIFIED (4) Huiwm-nu-pxsllir kidney injury Code(s): N17.9 - ACUTE KIDNEY FAILURE, UNSPECIFIED; N18.9 - CHRONIC KIDNEY DISEA SE, UNSPECIFIED Qualifiers: Chronic kidney disease stage: stage 2 (mild) (5) CKD (chronic kidney disease) Code(s): N18.9 - CHRONIC KIDNEY DISEASE, UNSPECIFIED (6) Coronary artery disease Code(s): I25.10 - ATHSCL HEART DISEASE OF [place] CORONARY ARTERY W/O ANG PCTRS Qualifiers: Coronary Disease-Associated Artery/Lesion type: [place] artery [place] vs. transplanted heart: [place] heart Associated angina: without angina Qualified Code(s): I25.10 - Atherosclerotic heart disease of [place] coronary artery without angina pectoris (7) Hypercholesterolemia Code(s): E78.00 - PURE HYPERCHOLESTEROLEMIA, UNSPECIFIED (8) Hypertensive heart disease Code(s): I11.9 - HYPERTENSIVE HEART DISEASE WITHOUT HEART FAILURE Qualifiers: Heart failure presence: without heart failure Qualified Code(s): I11.9 - Hypertensive heart disease without heart failure (9) Presence of drug-eluting stent in right coronary artery Code(s): Z95.5 - PRESENCE OF CORONARY ANGIOPLASTY IMPLANT AND GRAFT (10) S/P TURP Code(s): Z90.79 - ACQUIRED ABSENCE OF OTHER GENITAL ORGAN(S) (11) Sepsis Code(s): A41.9 - SEPSIS, UNSPECIFIED ORGANISM Qualifiers: Sepsis type: sepsis due to unspecified organism Sepsis acute organ dysfunction status: unspecified Qualified Code(s): A41.9 - Sepsis, unspecified organism (12) Sleep apnea Code(s): G47.30 - SLEEP APNEA, UNSPECIFIED Qualifiers: Sleep apnea type: obstructive Qualified Code(s): G47.33 - Obstructive sleep apnea (adult) (pediatric) Assessment/Plan 1. Recurrent hematuria, clots and urinary retention s/p cystoscopy, fulguration of bleeding, evacuation of clots 2. Recurrent Sepsis source post TURP s/p cysto/evac clots/fulguration bleeding vessels 3. COPD and pulmonary fibrosis 4. CAD s/p FISH to RCA 5. Diastolic dysfunction 6. Type 2 DM 7. Acute on CKD (obstructive) with proteinuria 8. OSAS on CPAP 9. Hypertensive heart disease 10. Hyperlipidemia 11 History of PE 12. COVID + 13. Acute blood loss anemia post transfusion PLAN: 1. following 2. Hold ASA and Plavix until hematuria resolves (FISH placed 2017) then restart Plavix alone given recurrent hematuria, monitor Hgb post transfusion 3. Continue Lipitor 80 mg QD 4. Continue Carvedilol 12.5 mg BID 5. Hold Cozaar 50 mg QD and Furosemide 40 mg QD pending renal recovery 6. Continue Norvasc 10 mg QD 7. Empiric antibiotic course as per ID team 8. Bronchodilator, O2 as needed and CPAP nightly Robin Arellano MD
[2020-04-03] MEDS: LACTATED RINGERS SOLUTION 1,000 ML IV SCH (14:17)
--- NOTE | 2020-04-03 14:32 | PN ---
[facility]AN[facility] Gamino Note Chief Complaint: pt w/o c/o History of Present Illness: pod # 1 s/p cysto fulguration of prostatic hemorrhage - Objective Vital Signs: Vital Signs Temperature 97.8 F 04/03/20 09:44 Pulse Rate 80 04/03/20 09:44 Respiratory Rate 20 04/03/20 09:44 Blood Pressure 173/79 H 04/03/20 09:44 O2 Sat by Pulse Oximetry (%) 100 04/03/20 09:44 Constitutional: Yes: Thin Genitourinary: Yes: Dove Present, Hematuria (improved) Labs/Additional Data: CBC, BMP 04/03/20 06:21 04/03/20 06:21 INR, PTT INR 1.04 (0.83-1.09) 03/31/20 01:45 Blood Type Blood Type A POSITIVE 03/31/20 11:55 Antibody Screen Negative 03/31/20 11:55 Problem List - Problems (1) Hematuria Assessment/Plan: cont cbi, Dr Nura olivares covering until 04/05 Code(s): R31.9 - HEMATURIA, UNSPECIFIED Qualifiers: Hematuria type: gross Qualified Code(s): R31.0 - Gross hematuria (2) Cystitis Code(s): N30.90 - CYSTITIS, UNSPECIFIED WITHOUT HEMATURIA
--- NOTE | 2020-04-03 14:46 | PN ---
Progress Note (short form) - Note Progress Note: Resting in NAD on RA. Still with hematuria. No CP or SOB. Intake & Output 03/31/20 04/01/20 04/02/20 04/03/20 23:59 23:59 23:59 23:59 Intake Total 9600 7480 30775 35765 Output Total 57367 93567 52812 33138 Balance -9976 -5720 -6520 2019 Weight 209 lb 9 oz 211 lb 8 oz 211 lb Last Vital Signs Temp Pulse Resp BP Pulse Ox 98.0 F 140 H 20 115/67 97 04/03/20 14:39 04/03/20 14:39 04/03/20 14:39 04/03/20 14:39 04/03/20 14:39 Active Medications Acetaminophen (Tylenol -) 650 mg PO TID [facility] Last Admin: 04/03/20 06:04 Dose: 650 mg Documented by: Amlodipine Besylate (Norvasc -) 10 mg PO DAILY [facility] Last Admin: 04/03/20 10:53 Dose: 10 mg Documented by: Atorvastatin Calcium (Lipitor -) 80 mg PO HS [facility] Last Admin: 04/02/20 21:02 Dose: 80 mg Documented by: Budesonide/Formoterol Fumarate (Symbicort 160/4.5mcg -) 2 puff IH BID [facility] Last Admin: 04/03/20 09:54 Dose: 2 puff Documented by: Carvedilol (Coreg -) 12.5 mg PO BID [facility] Last Admin: 04/03/20 09:54 Dose: 12.5 mg Documented by: Docusate Sodium (Colace -) 100 mg PO Q12H PRN PRN Reason: CONSTIPATION Last Admin: 04/02/20 21:43 Dose: 100 mg Documented by: Glipizide (Glucotrol -) 5 mg PO DAILY@0700 [facility] Last Admin: 04/03/20 06:04 Dose: 5 mg Documented by: Lactated Ringer's (Lactated Ringers Solution) 1,000 mls @ 60 mls/hr IV ASDIR [facility] Last Admin: 04/03/20 14:17 Dose: 60 mls/hr Documented by: Meropenem 1 gm/ Dextrose 100 mls @ 200 mls/hr IVPB Q8H-IV [facility] Last Admin: 04/03/20 09:54 Dose: 200 mls/hr Documented by: Ondansetron HCl (Zofran Injection) 4 mg IVPUSH Q6H PRN PRN Reason: NAUSEA AND/OR VOMITING Umeclidinium/Vilanterol (Anoro Ellipta 62.5-25 Mcg Inh) 1 puff IH DAILY [facility] Last Admin: 04/03/20 09:54 Dose: 1 puff Documented by: Constitutional: Yes: No Distress, Calm Neck: Yes: Supple Cardiovascular: Yes: Regular Rate and Rhythm Respiratory: Yes: Regular, CTA Bilaterally Gastrointestinal: Yes: Normal Bowel Sounds, Soft Edema: No Labs: Laboratory Results - last 24 hr 04/02/20 04/03/20 04/03/20 18:00 06:21 06:21 WBC 11.0 H RBC 3.06 L Hgb 9.2 L Hct 26.2 L MCV 85.5 MCH 29.9 MCHC 35.0 RDW 15.3 Plt Count 220 MPV 7.9 Absolute Neuts (auto) 8.5 H Neutrophils % 77.2 Lymphocytes % 13.6 D Monocytes % 8.3 D Eosinophils % 0.4 D Basophils % 0.5 Nucleated RBC % 0 Sodium 143 Potassium 3.1 L Chloride 108 H Carbon Dioxide 26 Anion Gap 8 BUN 43.8 H Creatinine 1.9 H Est GFR (CKD-EPI)AfAm 39.10 Est GFR (CKD-EPI)NonAf 33.73 Random Glucose 141 H Calcium 8.3 L SARS-CoV-2 Ab Interp Reactive Problem List - Problems (1) COVID-19 Code(s): U07.1 - COVID POSITIVE (2) BILL (acute kidney injury) Code(s): N17.9 - ACUTE KIDNEY FAILURE, UNSPECIFIED (3) Hematuria Code(s): R31.9 - HEMATURIA, UNSPECIFIED Qualifiers: Hematuria type: gross Qualified Code(s): R31.0 - Gross hematuria (4) Unctu-jh-jylmwrh kidney injury Code(s): N17.9 - ACUTE KIDNEY FAILURE, UNSPECIFIED; N18.9 - CHRONIC KIDNEY DISEASE, UNSPECIFIED Qualifiers: Chronic kidney disease stage: stage 2 (mild) (5) BPH (benign prostatic hyperplasia) Code(s): N40.0 - BENIGN PROSTATIC HYPERPLASIA WITHOUT LOWER URINRY TRACT SYMP (6) COPD (chronic obstructive pulmonary disease) with acute bronchitis Code(s): J44.0 - CHR OBSTRUCTIVE PULMON DISEASE WITH (ACUTE) LOWER RESP INFCT; J20.9 - ACUTE BRONCHITIS, UNSPECIFIED (7) Coronary artery disease Code(s): I25.10 - ATHSCL HEART DISEASE OF [place] CORONARY ARTERY W/O ANG PCTRS Qualifiers: Coronary Disease-Associated Artery/Lesion type: [place] artery [place] vs. transplanted heart: [place] heart Associated angina: without angina Qualified Code(s): I25.10 - Atherosclerotic heart disease of [place] coronary artery without angina pectoris (8) HLD (hyperlipidemia) Code(s): E78.5 - HYPERLIPIDEMIA, UNSPECIFIED Qualifiers: Hyperlipidemia type: pure hypercholesterolemia Qualified Code(s): E78.00 - Pure hypercholesterolemia, unspecified; E78.0 - Pure hypercholesterolemia (9) Hematuria Code(s): R31.9 - HEMATURIA, UNSPECIFIED Qualifiers: Hematuria type: gross Qualified Code(s): R31.0 - Gross hematuria (10) Obesity (BMI 30.0-34.9) Code(s): E66.9 - OBESITY, UNSPECIFIED (11) S/P TURP Code(s): Z90.79 - ACQUIRED ABSENCE OF OTHER GENITAL ORGAN(S) (12) Sleep apnea Code(s): G47.30 - SLEEP APNEA, UNSPECIFIED Qualifiers: Sleep apnea type: obstructive Qualified Code(s): G47.33 - Obstructive sleep apnea (adult) (pediatric) (13) Urinary retention Code(s): R33.9 - RETENTION OF URINE, UNSPECIFIED (14) Pulmonary fibrosis Code(s): J84.10 - PULMONARY FIBROSIS, UNSPECIFIED IMP HEMATURIA/URINARY RETENTION S/P CYSTO/FULGURATION OF BLEEDING EVACUATION OF CLOTS SECONDARY TO PROSTATIC HEMORRHAGE H/O COVID COMPLICATED BY ACUTE RESPIRATORY FAILURE,?PE ASHD S/P STENT' COPD PULMONARY FIBROSIS HTN HLD H/O PE S/P TURP 02/23/20 ACUTE ON CHRONOC KIDNEY DISEASE [facility] ON CPAP 7 PLAN O2 NEEDED INHALED BRONCHODILATORS ABX PER ID CHEST CT CAN BE PERFORMED BEFORE DISCHARGE CPAP @ [address] Ambrosio
--- NOTE | 2020-04-03 16:10 | PN ---
Progress Note, Physician History of Present Illness: Pt alert without distress. Afebrile. Hematuria improving. - Current Medication List Current Medications: Active Medications Acetaminophen (Tylenol -) 650 mg PO TID [facility] Last Admin: 04/03/20 14:38 Dose: 650 mg Documented by: Amlodipine Besylate (Norvasc -) 10 mg PO DAILY [facility] Last Admin: 04/03/20 10:53 Dose: 10 mg Documented by: Atorvastatin Calcium (Lipitor -) 80 mg PO HS [facility] Last Admin: 04/02/20 21:02 Dose: 80 mg Documented by: Budesonide/Formoterol Fumarate (Symbicort 160/4.5mcg -) 2 puff IH BID [facility] Last Admin: 04/03/20 09:54 Dose: 2 puff Documented by: Carvedilol (Coreg -) 12.5 mg PO BID [facility] Last Admin: 04/03/20 09:54 Dose: 12.5 mg Documented by: Docusate Sodium (Colace -) 100 mg PO Q12H PRN PRN Reason: CONSTIPATION Last Admin: 04/02/20 21:43 Dose: 100 mg Documented by: Glipizide (Glucotrol -) 5 mg PO DAILY@0700 [facility] Last Admin: 04/03/20 06:04 Dose: 5 mg Documented by: Lactated Ringer's (Lactated Ringers Solution) 1,000 mls @ 60 mls/hr IV ASDIR [facility] Last Admin: 04/03/20 14:17 Dose: 60 mls/hr Documented by: Meropenem 1 gm/ Dextrose 100 mls @ 200 mls/hr IVPB Q8H-IV [facility] Last Admin: 04/03/20 09:54 Dose: 200 mls/hr Documented by: Ondansetron HCl (Zofran Injection) 4 mg IVPUSH Q6H PRN PRN Reason: NAUSEA AND/OR VOMITING Umeclidinium/Vilanterol (Anoro Ellipta 62.5-25 Mcg Inh) 1 puff IH DAILY [facility] Last Admin: 04/03/20 09:54 Dose: 1 puff Documented by: - Objective Vital Signs: Vital Signs Temperature 98.5 F 04/03/20 14:39 Pulse Rate 76 04/03/20 14:39 Respiratory Rate 20 04/03/20 14:39 Blood Pressure 157/73 04/03/20 14:39 O2 Sat by Pulse Oximetry (%) 97 04/03/20 14:39 Constitutional: Yes: No Distress, Calm Eyes: Yes: Conjunctiva Clear Cardiovascular: Yes: Regular Rate and Rhythm Respiratory: Yes: Regular Gastrointestinal: Yes: Normal Bowel Sounds, Soft Genitourinary: Yes: Hematuria (less, aguilar present with pink urine) Neurological: Yes: Alert, Oriented Labs: CBC, BMP 04/03/20 06:21 04/03/20 06:21 INR, PTT INR 1.04 (0.83-1.09) 03/31/20 01:45 Laboratory Last Values WBC 11.0 K/mm3 (4.0-10.0) H 04/03/20 06:21 RBC 3.06 M/mm3 (4.00-5.60) L 04/03/20 06:21 Hgb 9.2 GM/dL (11.7-16.9) L 04/03/20 06:21 Hct 26.2 % (35.4-49) L 04/03/20 06:21 MCV 85.5 fl (80-96) 04/03/20 06:21 MCH 29.9 pg (25.7-33.7) 04/03/20 06:21 MCHC 35.0 g/dl (32.0-35.9) 04/03/20 06:21 RDW 15.3 % (11.9-15.9) 04/03/20 06:21 Plt Count 220 K/MM3 (134-434) 04/03/20 06:21 MPV 7.9 fl (7.5-11.1) 04/03/20 06:21 Absolute Neuts (auto) 8.5 K/mm3 (1.5-8.0) H 04/03/20 06:21 Neutrophils % 77.2 % (42.8-82.8) 04/03/20 06:21 Neutrophils % (Manual) 95.0 % (42.8-82.8) H 04/01/20 20:30 Band Neutrophils % 0.0 % 04/01/20 20:30 Lymphocytes % 13.6 % (8-40) D 04/03/20 06:21 Lymphocytes % (Manual) 4.0 % (8-40) L D 04/01/20 20:30 Monocytes % 8.3 % (3.8-10.2) D 04/03/20 06:21 Monocytes % (Manual) 1 % (3.8-10.2) L 04/01/20 20:30 Eosinophils % 0.4 % (0-4.5) D 04/03/20 06:21 Eosinophils % (Manual) 0.0 % (0-4.5) D 04/01/20 20:30 Basophils % 0.5 % (0-2.0) 04/03/20 06:21 Basophils % (Manual) 0.0 % (0-2.0) 04/01/20 20:30 Myelocytes % (Man) 0 % (0-2) 04/01/20 20:30 Promyelocytes % (Man) 0 % (0-2) 04/01/20 20:30 Blast Cells % (Manual) 0 % (0-0) 04/01/20 20:30 Nucleated RBC % 0 % (0-0) 04/03/20 06:21 Metamyelocytes 0 % (0-2) 04/01/20 20:30 Hypochromia 0 04/01/20 20:30 Platelet Estimate Normal 04/01/20 20:30 Polychromasia 1+ 04/01/20 20:30 Poikilocytosis 0 04/01/20 20:30 Basophilic Stippling 1+ 04/01/20 20:30 Anisocytosis 1+ 04/01/20 20:30 Microcytosis 1+ 04/01/20 20:30 Macrocytosis 0 04/01/20 20:30 PT with INR 12.30 SEC (9.7-13.0) 03/31/20 01:45 INR 1.04 (0.83-1.09) 03/31/20 01:45 Sodium 143 mmol/L (136-145) 04/03/20 06:21 Potassium 3.1 mmol/L (3.5-5.1) L 04/03/20 06:21 Chloride 108 mmol/L (98-107) H 04/03/20 06:21 Carbon Dioxide 26 mmol/L (21-32) 04/03/20 06:21 Anion Gap 8 MMOL/L (8-16) 04/03/20 06:21 BUN 43.8 mg/dL (7-18) H 04/03/20 06:21 Creatinine 1.9 mg/dL (0.55-1.3) H 04/03/20 06:21 Est GFR (CKD-EPI)AfAm 39.10 04/03/20 06:21 Est GFR (CKD-EPI)NonAf 33.73 04/03/20 06:21 POC Glucometer 193 UNITS (80-120) 03/31/20 11:40 Random Glucose 141 mg/dL (74-106) H 04/03/20 06:21 Lactic Acid 1.8 mmol/L (0.4-2.0) 04/02/20 07:20 Calcium 8.3 mg/dL (8.5-10.1) L 04/03/20 06:21 Total Bilirubin 0.6 mg/dL (0.2-1) 03/31/20 01:22 AST 12 U/L (15-37) L 03/31/20 01:22 ALT 17 U/L (13-61) 03/31/20 01:22 Alkaline Phosphatase 78 U/L (45-117) 03/31/20 01:22 Total Protein 6.8 g/dl (6.4-8.2) 03/31/20 01:22 Albumin 3.5 g/dl (3.4-5.0) 03/31/20 01:22 Urine Color Red 03/31/20 00:35 Urine Appearance Cloudy 03/31/20 00:35 Urine pH 7.5 (5.0-8.0) D 03/31/20 00:35 Ur Specific [place] 1.037 (1.010-1.035) H 03/31/20 00:35 Urine Protein 4+ (NEGATIVE) H 03/31/20 00:35 Urine Glucose (UA) Trace (NEGATIVE) 03/31/20 00:35 Urine Ketones Negative (NEGATIVE) 03/31/20 00:35 Urine Blood 3+ (NEGATIVE) H 03/31/20 00:35 Urine Nitrite Negative (NEGATIVE) 03/31/20 00:35 Urine Bilirubin Negative (NEGATIVE) 03/31/20 00:35 Urine Urobilinogen 0.2 mg/dL (0.2-1.0) 03/31/20 00:35 Ur Leukocyte Esterase Negative (NEGATIVE) 03/31/20 00:35 Urine WBC (Auto) 1 /uL (0-25.8) 03/31/20 00:35 Urine RBC (Auto) 82 /uL (0-23.9) 03/31/20 00:35 Urine Casts (Auto) 0 /uL (0-3.1) 03/31/20 00:35 U Epithel Cells (Auto) 23 /uL (0-25.1) 03/31/20 00:35 Urine Bacteria (Auto) 3 /uL (0-1359) 03/31/20 00:35 COVID-19 (ALEJANDRINA) Detected (Not Detected) H 03/31/20 03:14 SARS-CoV-2 Ab Interp Reactive (NONREACTIVE) 04/02/20 18:00 Blood Type A POSITIVE 03/31/20 11:55 Antibody Screen Negative 03/31/20 11:55 Crossmatch See Detail 03/31/20 11:55 Microbiology 03/31/20 06:35 Blood - Peripheral Venous Blood Culture - Preliminary NO GROWTH OBTAINED AFTER 72 HOURS, INCUBATION TO CONTINUE FOR 2 DAYS. 03/31/20 06:35 Blood - Peripheral Venous Blood Culture - Preliminary NO GROWTH OBTAINED AFTER 72 HOURS, INCUBATION TO CONTINUE FOR 2 DAYS. 03/31/20 00:35 Urine - Urine Clean Catch Urine Culture - Final Pseudomonas Aeruginosa Problem List - Problems (1) BILL (acute kidney injury) Code(s): N17.9 - ACUTE KIDNEY FAILURE, UNSPECIFIED (2) Hematuria Code(s): R31.9 - HEMATURIA, UNSPECIFIED Qualifiers: Hematuria type: gross Qualified Code(s): R31.0 - Gross hematuria (3) Pulmonary fibrosis Code(s): J84.10 - PULMONARY FIBROSIS, UNSPECIFIED (4) Mamac-sy-kettgwo kidney injury Code(s): N17.9 - ACUTE KIDNEY FAILURE, UNSPECIFIED; N18.9 - CHRONIC KIDNEY DISEASE, UNSPECIFIED Qualifiers: Chronic kidney disease stage: stage 2 (mild) (5) BPH (benign prostatic hyperplasia) Code(s): N40.0 - BENIGN PROSTATIC HYPERPLASIA WITHOUT LOWER URINRY TRACT SYMP (6) COPD (chronic obstructive pulmonary disease) with acute bronchitis Code(s): J44.0 - CHR OBSTRUCTIVE PULMON DISEASE WITH (ACUTE) LOWER RESP INFCT; J20.9 - ACUTE BRONCHITIS, UNSPECIFIED (7) Coronary artery disease Code(s): I25.10 - ATHSCL HEART DISEASE OF [place] CORONARY ARTERY W/O ANG PCTRS Qualifiers: Coronary Disease-Associated Artery/Lesion type: [place] artery [place] vs. transplanted heart: [place] heart Associated angina: without angina Qualified Code(s): I25.10 - Atherosclerotic heart disease of [place] coronary artery without angina pectoris (8) Aguilar catheter problem Code(s): T83.9XXA - UNSP COMPLICATION OF GENITOURINARY PROSTH DEV/GRFT, INIT Qualifiers: Encounter type: initial encounter Qualified Code(s): T83.9XXA - Unspecified complication of genitourinary prosthetic device, implant and graft, initial encounter (9) HLD (hyperlipidemia) Code(s): E78.5 - HYPERLIPIDEMIA, UNSPECIFIED Qualifiers: Hyperlipidemia type: pure hypercholesterolemia Qualified Code(s): E78.00 - Pure hypercholesterolemia, unspecified; E78.0 - Pure hypercholesterolemia (10) Hematuria Code(s): R31.9 - HEMATURIA, UNSPECIFIED Qualifiers: Hematuria type: gross Qualified Code(s): R31.0 - Gross hematuria (11) Obesity (BMI 30.0-34.9) Code(s): E66.9 - OBESITY, UNSPECIFIED (12) Obstructed Aguilar catheter Code(s): T83.091A - [facility] COMPL OF INDWELLING URETHRAL CATHETER, INIT (13) S/P TURP Code(s): Z90.79 - ACQUIRED ABSENCE OF OTHER GENITAL ORGAN(S) (14) UTI (urinary tract infection) Code(s): N39.0 - URINARY TRACT INFECTION, SITE NOT SPECIFIED Qualifiers: Urinary tract infection type: acute cystitis Hematuria presence: with hematuria Qualified Code(s): N30.01 - Acute cystitis with hematuria Assessment/Plan Hematuria / clots s/p Cysto/fulguration of bleed POD#2 Complicated UTI Urinary retention BILL/CKD Indwelling Aguilar catheter CAD Obesity BPH s/p TURP Urine culture + Pseudomonas continue Meropenem, pt is tolerating it Hematuria appears to be resolving Renal function improving Urology following continue monitor
[2020-04-03] MEDS: hydrALAZINE HCL 50 MG TABLET (FP) PO SCH ×2 (18:12→22:20)
[2020-04-03] MEDS: DOCUSATE SODIUM 100 MG CAPSULE (FP) PO PRN ×2 (18:18→22:20)
[2020-04-03] MEDS: ALBUTEROL SO4 HFA INHALER IH SCH (22:20)
[2020-04-03] MEDS: ATORVASTATIN CA 80 MG TABLET (FP) PO SCH (22:21)
[2020-04-04] MEDS: MEROPENEM 1 GM in DEXTROSE 5%-WATER 100 ML IVPB SCH ×4 (01:00→19:00)
[2020-04-04] MEDS: ACETAMINOPHEN 325 MG TABLET (FP) PO SCH ×3 (05:20→21:05)
[2020-04-04] MEDS ORDERED: morphine CARPU-JECT 2 MG/1 ML DISP.SYRIN IVPUSH ONE (06:00)
[2020-04-04] MEDS: glipiZIDE 5 MG TABLET (FP) PO SCH (06:46)
[2020-04-04 07:44] LABS: BASO % 0.3 % (0-2.0); EOS % 3.3 % (0-4.5); HEMATOCRIT 24.5 % (35.4-49); HEMOGLOBIN 8.6 GM/dL (11.7-16.9); LYMPH % 21.5 % (8-40); MCH 30.6 pg (25.7-33.7); MCHC 35.1 g/dl (32.0-35.9); MEAN CELL VOLUME 87.2 fl (80-96); MONO % 11.2 % (3.8-10.2); NEUT % 63.7 % (42.8-82.8); PLATELET COUNT 224 K/MM3 (134-434); RBC 2.81 M/mm3 (4.00-5.60); RDW 15.4 % (11.9-15.9); WHITE BLOOD COUNT 7.7 K/mm3 (4.0-10.0)
[2020-04-04 08:05] LABS: BLOOD UREA NITROGEN 28.9 mg/dL (7-18); CREATININE 1.3 mg/dL (0.55-1.3)
[2020-04-04] MEDS: ALBUTEROL SO4 HFA INHALER IH SCH ×4 (08:10→21:02)
[2020-04-04 08:28] LABS: POTASSIUM 2.9 mmol/L (3.5-5.1)
--- NOTE | 2020-04-04 08:59 | PN ---
Progress Note, Physician History of Present Illness: Pt is still having clots Yesterday few times catheter blocked Morning spoke with Nurse Hypokalemia Kcl 40 meq BID today Change IV to 1/2 NS with 10 meq at 60ml/hr Bun/Creat Better Hb Drop we will monitor closely. No Chest pain No fever COVID 19 Testing Now Negative looks like False positive Pt Catheter came out and was replaced by Urology as per nurse - Current Medication List Current Medications: Active Medications Acetaminophen (Tylenol -) 650 mg PO TID [facility] Last Admin: 04/04/20 05:20 Dose: 650 mg Documented by: Albuterol Sulfate (Ventolin Hfa Inhaler -) 2 puff IH RQID [facility] Last Admin: 04/03/20 22:20 Dose: 2 puff Documented by: Amlodipine Besylate (Norvasc -) 10 mg PO DAILY [facility] Last Admin: 04/03/20 10:53 Dose: 10 mg Documented by: Atorvastatin Calcium (Lipitor -) 80 mg PO HS [facility] Last Admin: 04/03/20 22:21 Dose: 80 mg Documented by: Budesonide/Formoterol Fumarate (Symbicort 160/4.5mcg -) 2 puff IH BID [facility] Last Admin: 04/03/20 22:21 Dose: 2 puff Documented by: Carvedilol (Coreg -) 12.5 mg PO BID [facility] Last Admin: 04/03/20 22:20 Dose: 12.5 mg Documented by: Docusate Sodium (Colace -) 100 mg PO Q12H PRN PRN Reason: CONSTIPATION Last Admin: 04/03/20 22:20 Dose: 100 mg Documented by: Glipizide (Glucotrol -) 5 mg PO DAILY@0700 [facility] Last Admin: 04/04/20 06:46 Dose: 5 mg Documented by: Hydralazine HCl (Apresoline -) 50 mg PO BID [facility] Last Admin: 04/03/20 22:20 Dose: 50 mg Documented by: Lactated Ringer's (Lactated Ringers Solution) 1,000 mls @ 60 mls/hr IV ASDIR [facility] Last Admin: 04/03/20 14:17 Dose: 60 mls/hr Documented by: Meropenem 1 gm/ Dextrose 100 mls @ 200 mls/hr IVPB Q8H-IV [facility] Last Admin: 04/04/20 01:00 Dose: 200 mls/hr Documented by: Potassium Chloride 10 meq/ (Sodium Chloride) 1,005 mls @ 60 mls/hr IVPB Q13H [facility] Morphine Sulfate (Morphine Injection -) 4 mg IVPUSH ONCE ONE Stop: 04/04/20 06:01 Ondansetron HCl (Zofran Injection) 4 mg IVPUSH Q6H PRN PRN Reason: NAUSEA AND/OR VOMITING Potassium Chloride (Potassium Chloride Oral Liquid) 40 meq PO Q6HPO [facility] Stop: 04/04/20 12:01 Umeclidinium/Vilanterol (Anoro Ellipta 62.5-25 Mcg Inh) 1 puff IH DAILY [facility] Last Admin: 04/03/20 09:54 Dose: 1 puff Documented by: - Objective Vital Signs: Vital Signs Temperature 97.8 F 04/04/20 06:00 Pulse Rate 67 04/04/20 06:00 Respiratory Rate 20 04/04/20 06:00 Blood Pressure 181/80 H 04/04/20 06:00 O2 Sat by Pulse Oximetry (%) 96 04/04/20 06:00 Labs: CBC, BMP 04/04/20 06:40 04/04/20 06:40 INR, PTT INR 1.04 (0.83-1.09) 03/31/20 01:45 Problem List - Problems (1) Hematuria Code(s): R31.9 - HEMATURIA, UNSPECIFIED Qualifiers: Hematuria type: gross Qualified Code(s): R31.0 - Gross hematuria (2) Acute NM, inferior wall, initial episode of care Code(s): I21.19 - STEMI INVOLVING OTH CORONARY ARTERY OF INFERIOR WALL (3) Xbmgb-jw-urrutfy kidney injury Code(s): N17.9 - ACUTE KIDNEY FAILURE, UNSPECIFIED; N18.9 - CHRONIC KIDNEY DISEASE, UNSPECIFIED Qualifiers: Chronic kidney disease stage: stage 2 (mild) (4) BPH (benign prostatic hyperplasia) Code(s): N40.0 - BENIGN PROSTATIC HYPERPLASIA WITHOUT LOWER URINRY TRACT SYMP (5) CKD (chronic kidney disease) Code(s): N18.9 - CHRONIC KIDNEY DISEASE, UNSPECIFIED (6) Calcaneal spur, right foot Code(s): M77.31 - CALCANEAL SPUR, RIGHT FOOT (7) Cystitis Code(s): N30.90 - CYSTITIS, UNSPECIFIED WITHOUT HEMATURIA (8) Dysuria Code(s): R30.0 - DYSURIA (9) HLD (hyperlipidemia) Code(s): E78.5 - HYPERLIPIDEMIA, UNSPECIFIED Qualifiers: Hyperlipidemia type: pure hypercholesterolemia Qualified Code(s): E78.00 - Pure hypercholesterolemia, unspecified; E78.0 - Pure hypercholesterolemia (10) Hypercholesterolemia Code(s): E78.00 - PURE HYPERCHOLESTEROLEMIA, UNSPECIFIED (11) Hypokalemia Code(s): E87.6 - HYPOKALEMIA (12) Lumbar radiculopathy, chronic Code(s): M54.16 - RADICULOPATHY, LUMBAR REGION (13) NSTEMI (non-ST elevated myocardial infarction) Code(s): I21.4 - NON-ST ELEVATION (NSTEMI) MYOCARDIAL INFARCTION (14) Obesity (BMI 30.0-34.9) Code(s): E66.9 - OBESITY, UNSPECIFIED (15) Presence of drug-eluting stent in right coronary artery Code(s): Z95.5 - PRESENCE OF CORONARY ANGIOPLASTY IMPLANT AND GRAFT (16) S/P TURP Code(s): Z90.79 - ACQUIRED ABSENCE OF OTHER GENITAL ORGAN(S) (17) Shingles (herpes zoster) polyneuropathy Code(s): B02.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 (18) Sleep apnea Code(s): G47.30 - SLEEP APNEA, UNSPECIFIED Qualifiers: Sleep apnea type: obstructive Qualified Code(s): G47.33 - Obstructive sleep apnea (adult) (pediatric) (19) Syncope Code(s): R55 - SYNCOPE AND COLLAPSE (20) UTI (urinary tract infection) Code(s): N39.0 - URINARY TRACT INFECTION, SITE NOT SPECIFIED Qualifiers: Urinary tract infection type: acute cystitis Hematuria presence: with hematuria Qualified Code(s): N30.01 - Acute cystitis with hematuria (21) Urinary retention Code(s): R33.9 - RETENTION OF URINE, UNSPECIFIED
[2020-04-04] MEDS ORDERED: morphine SULFATE 4 MG/ML VIAL IVPUSH ONE (09:15)
[2020-04-04] MEDS: POTASSIUM CHLORIDE 10 MEQ in SODIUM CHLORIDE 0.45% 1,000 ML IVPB SCH (09:15)
[2020-04-04] MEDS: POTASSIUM CHLORIDE ORAL LIQUID 20 MEQ/15 ML PO SCH ×2 (10:00→16:00)
[2020-04-04] MEDS: UMECLIDINIUM/VILANTEROL (ANORO) 62.5/25 MCG INHALER IH SCH (10:15)
[2020-04-04] MEDS: hydrALAZINE HCL 50 MG TABLET (FP) PO SCH ×2 (10:17→21:02)
[2020-04-04] MEDS: BUDESONIDE/FORMETEROL FUMARATE 160/4.5 mcg INHALER IH SCH ×2 (10:18→21:04)
[2020-04-04] MEDS: amLODIPine BESYLATE 10 MG TABLET (FP) PO SCH (10:18)
--- NOTE | 2020-04-04 14:11 | PN ---
Progress Note (short form) - Note Progress Note: Resting in NAD on RA. Petty got pulled last night when he tried to get out of bed. Still with hematuria. No CP or SOB. Intake & Output 04/01/20 04/02/20 04/03/20 04/04/20 23:59 23:59 23:59 23:59 Intake Total 7480 89093 61789 8430 Output Total 88989 09730 35869 8500 Balance -5720 -1670 2360 -70 Weight 211 lb 8 oz 211 lb Last Vital Signs Temp Pulse Resp BP Pulse Ox 97.8 F 67 20 181/80 H 96 04/04/20 06:00 04/04/20 06:00 04/04/20 06:00 04/04/20 06:00 04/04/20 06:00 Active Medications Acetaminophen (Tylenol -) 650 mg PO TID [facility] Last Admin: 04/04/20 13:24 Dose: 650 mg Documented by: Albuterol Sulfate (Ventolin Hfa Inhaler -) 2 puff IH RQID [facility] Last Admin: 04/03/20 22:20 Dose: 2 puff Documented by: Amlodipine Besylate (Norvasc -) 10 mg PO DAILY [facility] Last Admin: 04/03/20 10:53 Dose: 10 mg Documented by: Atorvastatin Calcium (Lipitor -) 80 mg PO HS [facility] Last Admin: 04/03/20 22:21 Dose: 80 mg Documented by: Budesonide/Formoterol Fumarate (Symbicort 160/4.5mcg -) 2 puff IH BID [facility] Last Admin: 04/03/20 22:21 Dose: 2 puff Documented by: Carvedilol (Coreg -) 12.5 mg PO BID [facility] Last Admin: 04/03/20 22:20 Dose: 12.5 mg Documented by: Docusate Sodium (Colace -) 100 mg PO Q12H PRN PRN Reason: CONSTIPATION Last Admin: 04/03/20 22:20 Dose: 100 mg Documented by: Glipizide (Glucotrol -) 5 mg PO DAILY@0700 [facility] Last Admin: 04/04/20 06:46 Dose: 5 mg Documented by: Hydralazine HCl (Apresoline -) 50 mg PO BID [facility] Last Admin: 04/03/20 22:20 Dose: 50 mg Documented by: Lactated Ringer's (Lactated Ringers Solution) 1,000 mls @ 60 mls/hr IV ASDIR [facility] Last Admin: 04/03/20 14:17 Dose: 60 mls/hr Documented by: Meropenem 1 gm/ Dextrose 100 mls @ 200 mls/hr IVPB Q8H-IV [facility] Last Admin: 04/04/20 01:00 Dose: 200 mls/hr Documented by: Potassium Chloride 10 meq/ (Sodium Chloride) 1,005 mls @ 60 mls/hr IVPB Q16H [facility] Ondansetron HCl (Zofran Injection) 4 mg IVPUSH Q6H PRN PRN Reason: NAUSEA AND/OR VOMITING Umeclidinium/Vilanterol (Anoro Ellipta 62.5-25 Mcg Inh) 1 puff IH DAILY [facility] Last Admin: 04/03/20 09:54 Dose: 1 puff Documented by: Constitutional: Yes: No Distress, Calm Neck: Yes: Supple Cardiovascular: Yes: Regular Rate and Rhythm Respiratory: Yes: Regular, CTA Bilaterally Gastrointestinal: Yes: Normal Bowel Sounds, Soft Edema: No Labs: Laboratory Results - last 24 hr 03/31/20 04/02/20 04/04/20 11:55 18:45 06:40 WBC 7.7 RBC 2.81 L Hgb 8.6 L Hct 24.5 L MCV 87.2 MCH 30.6 MCHC 35.1 RDW 15.4 Plt Count 224 MPV 8.0 Absolute Neuts (auto) 4.9 Neutrophils % 63.7 Lymphocytes % 21.5 D Monocytes % 11.2 H Eosinophils % 3.3 D Basophils % 0.3 Nucleated RBC % 0 Sodium Potassium Chloride Carbon Dioxide Anion Gap BUN Creatinine Est GFR (CKD-EPI)AfAm Est GFR (CKD-EPI)NonAf Random Glucose Calcium COVID-19 (ALEJANDRINA) Not detected Blood Type A POSITIVE Antibody Screen Negative Crossmatch See Detail 04/04/20 06:40 WBC RBC Hgb Hct MCV MCH MCHC RDW Plt Count MPV Absolute Neuts (auto) Neutrophils % Lymphocytes % Monocytes % Eosinophils % Basophils % Nucleated RBC % Sodium 144 Potassium 2.9 L* Chloride 109 H Carbon Dioxide 29 Anion Gap 6 L BUN 28.9 H Creatinine 1.3 Est GFR (CKD-EPI)AfAm 61.86 Est GFR (CKD-EPI)NonAf 53.37 Random Glucose 92 Calcium 8.0 L COVID-19 (ALEJANDRINA) Blood Type Antibody Screen Crossmatch Problem List - Problems (1) COVID-19 Code(s): U07.1 - COVID POSITIVE (2) BILL (acute kidney injury) Code(s): N17.9 - ACUTE KIDNEY FAILURE, UNSPECIFIED (3) Hematuria Code(s): R31.9 - HEMATURIA, UNSPECIFIED Qualifiers: Hematuria type: gross Qualified Code(s): R31.0 - Gross hematuria (4) Yhdhe-sk-udxjuib kidney injury Code(s): N17.9 - ACUTE KIDNEY FAILURE, UNSPECIFIED; N18.9 - CHRONIC KIDNEY DISEASE, UNSPECIFIED Qualifiers: Chronic kidney disease stage: stage 2 (mild) (5) BPH (benign prostatic hyperplasia) Code(s): N40.0 - BENIGN PROSTATIC HYPERPLASIA WITHOUT LOWER URINRY TRACT SYMP (6) COPD (chronic obstructive pulmonary disease) with acute bronchitis Code(s): J44.0 - CHR OBSTRUCTIVE PULMON DISEASE WITH (ACUTE) LOWER RESP INFCT; J20.9 - ACUTE BRONCHITIS, UNSPECIFIED (7) Coronary artery disease Code(s): I25.10 - ATHSCL HEART DISEASE OF [place] CORONARY ARTERY W/O ANG PCTRS Qualifiers: Coronary Disease-Associated Artery/Lesion type: [place] artery [place] vs. transplanted heart: [place] heart Associated angina: without angina Qualified Code(s): I25.10 - Atherosclerotic heart disease of [place] coronary artery without angina pectoris (8) HLD (hyperlipidemia) Code(s): E78.5 - HYPERLIPIDEMIA, UNSPECIFIED Qualifiers: Hyperlipidemia type: pure hypercholesterolemia Qualified Code(s): E78.00 - Pure hypercholesterolemia, unspecified; E78.0 - Pure hypercholesterolemia (9) Hematuria Code(s): R31.9 - HEMATURIA, UNSPECIFIED Qualifiers: Hematuria type: gross Qualified Code(s): R31.0 - Gross hematuria (10) Obesity (BMI 30.0-34.9) Code(s): E66.9 - OBESITY, UNSPECIFIED (11) S/P TURP Code(s): Z90.79 - ACQUIRED ABSENCE OF OTHER GENITAL ORGAN(S) (12) Sleep apnea Code(s): G47.30 - SLEEP APNEA, UNSPECIFIED Qualifiers: Sleep apnea type: obstructive Qualified Code(s): G47.33 - Obstructive sleep apnea (adult) (pediatric) (13) Urinary retention Code(s): R33.9 - RETENTION OF URINE, UNSPECIFIED (14) Pulmonary fibrosis Code(s): J84.10 - PULMONARY FIBROSIS, UNSPECIFIED IMP HEMATURIA/URINARY RETENTION S/P CYSTO/FULGURATION OF BLEEDING EVACUATION OF CLOTS SECONDARY TO PROSTATIC HEMORRHAGE H/O COVID COMPLICATED BY ACUTE RESPIRATORY FAILURE,?PE ASHD S/P STENT' COPD PULMONARY FIBROSIS HTN HLD H/O PE S/P TURP 02/23/20 ACUTE ON CHRONOC KIDNEY DISEASE KENN ON CPAP 7 PLAN O2 NEEDED INHALED BRONCHODILATORS ABX PER ID CHEST CT CAN BE PERFORMED BEFORE DISCHARGE CPAP @ [address] Ambrosio
[2020-04-04] MEDS ORDERED: HYDROmorphone HCl 2 MG/ML VIAL IVPB PRN (14:30)
--- NOTE | 2020-04-04 14:52 | PN ---
DATE OF VISIT: DATE OF DICTATION: 04/04/2020 The patient is a 74-year-old male who underwent a cystoscopy, fulguration of bleeding and clot retention, on March 31, 2020. Called in to see because of nonfunctioning Dove. Multiple attempts at irrigation were unsuccessful. Therefore, a brand new 24-Khmer 30-mL 3-way Dove was inserted. Vigorous irrigation. Evacuated 400 to 500 mL of clots. The return was clear. The bladder irrigation was commenced, the return is pinkish. The patient's abdomen is soft. He no longer has pain. Will continue with 3-way Dvoe and monitor I&O. IM analgesia was also ordered. The patient tolerated the procedure well. Maricel [id number]
--- NOTE | 2020-04-04 17:32 | PN ---
Progress Note, Physician History of Present Illness: Events noted. Pt's aguilar catheter was pulled out of place last night and replaced. +clots/hematuria, on CBI. No specific complaints at this time. Remains afebrile. - Current Medication List Current Medications: Active Medications Acetaminophen (Tylenol -) 650 mg PO TID [facility] Last Admin: 04/04/20 13:24 Dose: 650 mg Documented by: Albuterol Sulfate (Ventolin Hfa Inhaler -) 2 puff IH RQID [facility] Last Admin: 04/04/20 16:15 Dose: 2 puff Documented by: Amlodipine Besylate (Norvasc -) 10 mg PO DAILY [facility] Last Admin: 04/04/20 10:18 Dose: 10 mg Documented by: Atorvastatin Calcium (Lipitor -) 80 mg PO HS [facility] Last Admin: 04/03/20 22:21 Dose: 80 mg Documented by: Budesonide/Formoterol Fumarate (Symbicort 160/4.5mcg -) 2 puff IH BID [facility] Last Admin: 04/04/20 10:18 Dose: 2 puff Documented by: Carvedilol (Coreg -) 12.5 mg PO BID [facility] Last Admin: 04/03/20 22:20 Dose: 12.5 mg Documented by: Docusate Sodium (Colace -) 100 mg PO Q12H PRN PRN Reason: CONSTIPATION Last Admin: 04/03/20 22:20 Dose: 100 mg Documented by: Glipizide (Glucotrol -) 5 mg PO DAILY@0700 [facility] Last Admin: 04/04/20 06:46 Dose: 5 mg Documented by: Hydralazine HCl (Apresoline -) 50 mg PO BID [facility] Last Admin: 04/04/20 10:17 Dose: 50 mg Documented by: Hydromorphone HCl (Dilaudid Vial -) 2 mg IVPB Q4H PRN PRN Reason: PAIN LEVEL 7 - 10 Lactated Ringer's (Lactated Ringers Solution) 1,000 mls @ 60 mls/hr IV ASDIR [facility] Last Admin: 04/03/20 14:17 Dose: 60 mls/hr Documented by: Meropenem 1 gm/ Dextrose 100 mls @ 200 mls/hr IVPB Q8H-IV [facility] Last Admin: 04/04/20 17:18 Dose: 200 mls/hr Documented by: Potassium Chloride 10 meq/ (Sodium Chloride) 1,005 mls @ 60 mls/hr IVPB Q16H [facility] Last Admin: 04/04/20 09:15 Dose: 60 mls/hr Documented by: Ondansetron HCl (Zofran Injection) 4 mg IVPUSH Q6H PRN PRN Reason: NAUSEA AND/OR VOMITING Umeclidinium/Vilanterol (Anoro Ellipta 62.5-25 Mcg Inh) 1 puff IH DAILY [facility] Last Admin: 04/04/20 10:15 Dose: 1 puff Documented by: - Objective Vital Signs: Vital Signs Temperature 98 F 04/04/20 10:00 Pulse Rate 68 04/04/20 10:00 Respiratory Rate 20 04/04/20 10:00 Blood Pressure 176/76 H 04/04/20 10:00 O2 Sat by Pulse Oximetry (%) 97 04/04/20 10:00 Constitutional: Yes: No Distress, Calm Eyes: Yes: Conjunctiva Clear Cardiovascular: Yes: Regular Rate and Rhythm Respiratory: Yes: Regular Gastrointestinal: Yes: Normal Bowel Sounds, Soft Genitourinary: Yes: Aguilar Present, Hematuria Extremities: Yes: WNL Integumentary: Yes: WNL Neurological: Yes: Alert Labs: CBC, BMP 04/04/20 06:40 04/04/20 06:40 INR, PTT INR 1.04 (0.83-1.09) 03/31/20 01:45 Laboratory Last Values WBC 7.7 K/mm3 (4.0-10.0) 04/04/20 06:40 RBC 2.81 M/mm3 (4.00-5.60) L 04/04/20 06:40 Hgb 8.6 GM/dL (11.7-16.9) L 04/04/20 06:40 Hct 24.5 % (35.4-49) L 04/04/20 06:40 MCV 87.2 fl (80-96) 04/04/20 06:40 MCH 30.6 pg (25.7-33.7) 04/04/20 06:40 MCHC 35.1 g/dl (32.0-35.9) 04/04/20 06:40 RDW 15.4 % (11.9-15.9) 04/04/20 06:40 Plt Count 224 K/MM3 (134-434) 04/04/20 06:40 MPV 8.0 fl (7.5-11.1) 04/04/20 06:40 Absolute Neuts (auto) 4.9 K/mm3 (1.5-8.0) 04/04/20 06:40 Neutrophils % 63.7 % (42.8-82.8) 04/04/20 06:40 Neutrophils % (Manual) 95.0 % (42.8-82.8) H 04/01/20 20:30 Band Neutrophils % 0.0 % 04/01/20 20:30 Lymphocytes % 21.5 % (8-40) D 04/04/20 06:40 Lymphocytes % (Manual) 4.0 % (8-40) L D 04/01/20 20:30 Monocytes % 11.2 % (3.8-10.2) H 04/04/20 06:40 Monocytes % (Manual) 1 % (3.8-10.2) L 04/01/20 20:30 Eosinophils % 3.3 % (0-4.5) D 04/04/20 06:40 Eosinophils % (Manual) 0.0 % (0-4.5) D 04/01/20 20:30 Basophils % 0.3 % (0-2.0) 04/04/20 06:40 Basophils % (Manual) 0.0 % (0-2.0) 04/01/20 20:30 Myelocytes % (Man) 0 % (0-2) 04/01/20 20:30 Promyelocytes % (Man) 0 % (0-2) 04/01/20 20:30 Blast Cells % (Manual) 0 % (0-0) 04/01/20 20:30 Nucleated RBC % 0 % (0-0) 04/04/20 06:40 Metamyelocytes 0 % (0-2) 04/01/20 20:30 Hypochromia 0 04/01/20 20:30 Platelet Estimate Normal 04/01/20 20:30 Polychromasia 1+ 04/01/20 20:30 Poikilocytosis 0 04/01/20 20:30 Basophilic Stippling 1+ 04/01/20 20:30 Anisocytosis 1+ 04/01/20 20:30 Microcytosis 1+ 04/01/20 20:30 Macrocytosis 0 04/01/20 20:30 PT with INR 12.30 SEC (9.7-13.0) 03/31/20 01:45 INR 1.04 (0.83-1.09) 03/31/20 01:45 Sodium 144 mmol/L (136-145) 04/04/20 06:40 Potassium 2.9 mmol/L (3.5-5.1) L* 04/04/20 06:40 Chloride 109 mmol/L (98-107) H 04/04/20 06:40 Carbon Dioxide 29 mmol/L (21-32) 04/04/20 06:40 Anion Gap 6 MMOL/L (8-16) L 04/04/20 06:40 BUN 28.9 mg/dL (7-18) H 04/04/20 06:40 Creatinine 1.3 mg/dL (0.55-1.3) 04/04/20 06:40 Est GFR (CKD-EPI)AfAm 61.86 04/04/20 06:40 Est GFR (CKD-EPI)NonAf 53.37 04/04/20 06:40 POC Glucometer 193 UNITS (80-120) 03/31/20 11:40 Random Glucose 92 mg/dL (74-106) 04/04/20 06:40 Lactic Acid 1.8 mmol/L (0.4-2.0) 04/02/20 07:20 Calcium 8.0 mg/dL (8.5-10.1) L 04/04/20 06:40 Total Bilirubin 0.6 mg/dL (0.2-1) 03/31/20 01:22 AST 12 U/L (15-37) L 03/31/20 01:22 ALT 17 U/L (13-61) 03/31/20 01:22 Alkaline Phosphatase 78 U/L (45-117) 03/31/20 01:22 Total Protein 6.8 g/dl (6.4-8.2) 03/31/20 01:22 Albumin 3.5 g/dl (3.4-5.0) 03/31/20 01:22 Urine Color Red 03/31/20 00:35 Urine Appearance Cloudy 03/31/20 00:35 Urine pH 7.5 (5.0-8.0) D 03/31/20 00:35 Ur Specific [place] 1.037 (1.010-1.035) H 03/31/20 00:35 Urine Protein 4+ (NEGATIVE) H 03/31/20 00:35 Urine Glucose (UA) Trace (NEGATIVE) 03/31/20 00:35 Urine Ketones Negative (NEGATIVE) 03/31/20 00:35 Urine Blood 3+ (NEGATIVE) H 03/31/20 00:35 Urine Nitrite Negative (NEGATIVE) 03/31/20 00:35 Urine Bilirubin Negative (NEGATIVE) 03/31/20 00:35 Urine Urobilinogen 0.2 mg/dL (0.2-1.0) 03/31/20 00:35 Ur Leukocyte Esterase Negative (NEGATIVE) 03/31/20 00:35 Urine WBC (Auto) 1 /uL (0-25.8) 03/31/20 00:35 Urine RBC (Auto) 82 /uL (0-23.9) 03/31/20 00:35 Urine Casts (Auto) 0 /uL (0-3.1) 03/31/20 00:35 U Epithel Cells (Auto) 23 /uL (0-25.1) 03/31/20 00:35 Urine Bacteria (Auto) 3 /uL (0-1359) 03/31/20 00:35 COVID-19 (ALEJANDRINA) Not detected (Not Detected) 04/02/20 18:45 SARS-CoV-2 Ab Interp Reactive (NONREACTIVE) 04/02/20 18:00 Blood Type A POSITIVE 03/31/20 11:55 Antibody Screen Negative 03/31/20 11:55 Crossmatch See Detail 03/31/20 11:55 Microbiology 03/31/20 06:35 Blood - Peripheral Venous Blood Culture - Preliminary NO GROWTH OBTAINED AFTER 96 HOURS, INCUBATION TO CONTINUE FOR 1 DAYS. 03/31/20 06:35 Blood - Peripheral Venous Blood Culture - Preliminary NO GROWTH OBTAINED AFTER 96 HOURS, INCUBATION TO CONTINUE FOR 1 DAYS. 03/31/20 00:35 Urine - Urine Clean Catch Urine Culture - Final Pseudomonas Aeruginosa Problem List - Problems (1) BILL (acute kidney injury) Code(s): N17.9 - ACUTE KIDNEY FAILURE, UNSPECIFIED (2) Hematuria Code(s): R31.9 - HEMATURIA, UNSPECIFIED Qualifiers: Hematuria type: gross Qualified Code(s): R31.0 - Gross hematuria (3) Pulmonary fibrosis Code(s): J84.10 - PULMONARY FIBROSIS, UNSPECIFIED (4) Jbnbq-it-alwhqwm kidney injury Code(s): N17.9 - ACUTE KIDNEY FAILURE, UNSPECIFIED; N18.9 - CHRONIC KIDNEY DISEASE, UNSPECIFIED Qualifiers: Chronic kidney disease stage: stage 2 (mild) (5) BPH (benign prostatic hyperplasia) Code(s): N40.0 - BENIGN PROSTATIC HYPERPLASIA WITHOUT LOWER URINRY TRACT SYMP (6) COPD (chronic obstructive pulmonary disease) with acute bronchitis Code(s): J44.0 - CHR OBSTRUCTIVE PULMON DISEASE WITH (ACUTE) LOWER RESP INFCT; J20.9 - ACUTE BRONCHITIS, UNSPECIFIED (7) Coronary artery disease Code(s): I25.10 - ATHSCL HEART DISEASE OF [place] CORONARY ARTERY W/O ANG PCTRS Qualifiers: Coronary Disease-Associated Artery/Lesion type: [place] artery [place] vs. transplanted heart: [place] heart Associated angina: without angina Qualified Code(s): I25.10 - Atherosclerotic heart disease of [place] coronary artery witho ut angina pectoris (8) Aguilar catheter problem Code(s): T83.9XXA - UNSP COMPLICATION OF GENITOURINARY PROSTH DEV/GRFT, INIT Qualifiers: Encounter type: initial encounter Qualified Code(s): T83.9XXA - Unspecified complication of genitourinary prosthetic device, implant and graft, initial encounter (9) HLD (hyperlipidemia) Code(s): E78.5 - HYPERLIPIDEMIA, UNSPECIFIED Qualifiers: Hyperlipidemia type: pure hypercholesterolemia Qualified Code(s): E78.00 - Pure hypercholesterolemia, unspecified; E78.0 - Pure hypercholesterolemia (10) Hematuria Code(s): R31.9 - HEMATURIA, UNSPECIFIED Qualifiers: Hematuria type: gross Qualified Code(s): R31.0 - Gross hematuria (11) Obesity (BMI 30.0-34.9) Code(s): E66.9 - OBESITY, UNSPECIFIED (12) Obstructed Aguilar catheter Code(s): T83.091A - [facility] COMPL OF INDWELLING URETHRAL CATHETER, INIT (13) S/P TURP Code(s): Z90.79 - ACQUIRED ABSENCE OF OTHER GENITAL ORGAN(S) (14) UTI (urinary tract infection) Code(s): N39.0 - URINARY TRACT INFECTION, SITE NOT SPECIFIED Qualifiers: Urinary tract infection type: acute cystitis Hematuria presence: with hematuria Qualified Code(s): N30.01 - Acute cystitis with hematuria Assessment/Plan Hematuria / clots s/p Cysto/fulguration of bleed POD#2 Fever UTI Urinary retention BILL/CKD Indwelling Aguilar catheter CAD Obesity BPH s/p TURP -- aguilar pulled out of position last night, was replaced. Pt with hematuria/clots, currently on CBI -- continue antibiotics, fever resolved, wbc down to normal -- renal function improved -- Urology following continue monitor
[2020-04-04] MEDS ORDERED: DEXTROSE 5%-WATER 100 ML IVPB ONE ×2 (20:26→22:51)
[2020-04-04] MEDS ORDERED: MEROPENEM 1 GM VIAL (RESTRICTED TO ID) IVPB ONE ×2 (20:26→22:50)
[2020-04-04] MEDS: CARVEDILOL 12.5 MG TABLET (FP) PO SCH (21:01)
[2020-04-04] MEDS: DOCUSATE SODIUM 100 MG CAPSULE (FP) PO PRN (21:02)
[2020-04-04] MEDS: ATORVASTATIN CA 80 MG TABLET (FP) PO SCH (21:02)
[2020-04-04] MEDS: CARVEDILOL 25 MG TABLET (FP) PO SCH (22:02)
[2020-04-04] MEDS: ZOLPIDEM TARTRATE 5 MG TABLET PO PRN (23:02)
[2020-04-05] MEDS: MEROPENEM 1 GM in DEXTROSE 5%-WATER 100 ML IVPB SCH ×3 (00:50→18:18)
[2020-04-05] MEDS: POTASSIUM CHLORIDE 10 MEQ in SODIUM CHLORIDE 0.45% 1,000 ML IVPB SCH ×2 (00:50→18:15)
[2020-04-05] MEDS: ACETAMINOPHEN 325 MG TABLET (FP) PO SCH ×3 (05:52→21:28)
[2020-04-05] MEDS: glipiZIDE 5 MG TABLET (FP) PO SCH (06:02)
[2020-04-05 08:30] LABS: BASO % 0.2 % (0-2.0); EOS % 3.4 % (0-4.5); HEMATOCRIT 25.7 % (35.4-49); HEMOGLOBIN 8.8 GM/dL (11.7-16.9); LYMPH % 19.1 % (8-40); MCH 29.5 pg (25.7-33.7); MCHC 34.1 g/dl (32.0-35.9); MEAN CELL VOLUME 86.5 fl (80-96); MEAN PLT VOLUME 7.9 fl (7.5-11.1); MONO % 8.3 % (3.8-10.2); PLATELET COUNT 243 K/MM3 (134-434); RBC 2.97 M/mm3 (4.00-5.60); RDW 15.7 % (11.9-15.9)
[2020-04-05 08:39] LABS: BLOOD UREA NITROGEN 21.3 mg/dL (7-18); CALCIUM 7.8 mg/dL (8.5-10.1); CREATININE 1.1 mg/dL (0.55-1.3); POTASSIUM 3.4 mmol/L (3.5-5.1)
[2020-04-05] MEDS: ALBUTEROL SO4 HFA INHALER IH SCH ×4 (08:42→19:55)
--- NOTE | 2020-04-05 08:52 | PN ---
Progress Note, Physician History of Present Illness: This is a 74 year old male with a past medical history of hypertension, hyperlipidemia, coronary artery disease s/p stent in 2018 at [facility], COPD, hx of PE, Type 2 DM, pulmonary fibrosis and BPH s/p TURP 02/23/2020 c/b sepsis source and BILL post TURP despite prophylactic cipro, s/p cysto/evac clots/fulguration of bleeding vessels, d/jose with indwelling catheter for urinary retention presented for urinary retention, recurrent hematuria, urinary retention and suprapubic pain after resuming DAPT, started CBI which subsequently clotted off, underwent cystoscopy, fulguration of bleeding, evacuation of clots, found to have prostatic hemorrhage requiring 2 u pRBC transfusion, hematuria clearing with CBI. Last visit 02/16/2020 for pre- procedure CV evaluation. Covid PCR -, ab+. - Current Medication List Current Medications: Active Medications Acetaminophen (Tylenol -) 650 mg PO TID [facility] Last Admin: 04/05/20 05:52 Dose: 650 mg Documented by: Albuterol Sulfate (Ventolin Hfa Inhaler -) 2 puff IH RQID [facility] Last Admin: 04/05/20 08:42 Dose: 2 puff Documented by: Amlodipine Besylate (Norvasc -) 10 mg PO DAILY [facility] Last Admin: 04/04/20 10:18 Dose: 10 mg Documented by: Atorvastatin Calcium (Lipitor -) 80 mg PO HS [facility] Last Admin: 04/04/20 21:02 Dose: 80 mg Documented by: Budesonide/Formoterol Fumarate (Symbicort 160/4.5mcg -) 2 puff IH BID [facility] Last Admin: 04/04/20 21:04 Dose: 2 puff Documented by: Carvedilol (Coreg -) 25 mg PO BID [facility] Last Admin: 04/04/20 22:02 Dose: 25 mg Documented by: Docusate Sodium (Colace -) 100 mg PO Q12H PRN PRN Reason: CONSTIPATION Last Admin: 04/04/20 21:02 Dose: 100 mg Documented by: Glipizide (Glucotrol -) 5 mg PO DAILY@0700 [facility] Last Admin: 04/05/20 06:02 Dose: 5 mg Documented by: Hydralazine HCl (Apresoline -) 50 mg PO BID [facility] Last Admin: 04/04/20 21:02 Dose: 50 mg Documented by: Hydromorphone HCl (Dilaudid Vial -) 2 mg IVPB Q4H PRN PRN Reason: PAIN LEVEL 7 - 10 Last Admin: 04/04/20 21:04 Dose: 2 mg Documented by: Meropenem 1 gm/ Dextrose 100 mls @ 200 mls/hr IVPB Q8H-IV [facility] Last Admin: 04/05/20 00:50 Dose: 200 mls/hr Documented by: Potassium Chloride 10 meq/ (Sodium Chloride) 1,005 mls @ 60 mls/hr IVPB Q16H [facility] Last Admin: 04/05/20 00:50 Dose: 60 mls/hr Documented by: Ondansetron HCl (Zofran Injection) 4 mg IVPUSH Q6H PRN PRN Reason: NAUSEA AND/OR VOMITING Umeclidinium/Vilanterol (Anoro Ellipta 62.5-25 Mcg Inh) 1 puff IH DAILY [facility] Last Admin: 04/04/20 10:15 Dose: 1 puff Documented by: Zolpidem Tartrate (Ambien -) 5 mg PO HS PRN PRN Reason: INSOMNIA Stop: 04/06/20 06:00 Last Admin: 04/04/20 23:02 Dose: 5 mg Documented by: - Objective Vital Signs: Vital Signs Temperature 98.3 F 04/05/20 05:54 Pulse Rate 83 04/05/20 05:54 Respiratory Rate 20 04/05/20 05:54 Blood Pressure 160/76 04/05/20 05:54 O2 Sat by Pulse Oximetry (%) 99 04/05/20 08:03 Constitutional: Yes: No Distress, Calm Neck: Yes: Supple Cardiovascular: Yes: Regular Rate and Rhythm Respiratory: Yes: Regular, CTA Bilaterally Gastrointestinal: Yes: Normal Bowel Sounds, Soft, Abdomen, Obese Genitourinary: Yes: Dove Present Edema: No Labs: CBC, BMP 04/05/20 06:54 04/05/20 06:54 INR, PTT INR 1.04 (0.83-1.09) 03/31/20 01:45 Problem List - Problems (1) Hematuria Code(s): R31.9 - HEMATURIA, UNSPECIFIED Qualifiers: Hematuria type: gross Qualified Code(s): R31.0 - Gross hematuria (2) Skpsg-hj-iwgvwwu kidney injury Code(s): N17.9 - ACUTE KIDNEY FAILURE, UNSPECIFIED; N18.9 - CHRONIC KIDNEY DISEASE, UNSPECIFIED Qualifiers: Chronic kidney disease stage: stage 2 (mild) (3) Coronary artery disease Code(s): I25.10 - ATHSCL HEART DISEASE OF [place] CORONARY ARTERY W/O ANG PCTRS Qualifiers: Coronary Disease-Associated Artery/Lesion type: [place] artery [place] vs. transplanted heart: [place] heart Associated angina: without angina Qualified Code(s): I25.10 - Atherosclerotic heart disease of [place] coronary artery withou t angina pectoris (4) Dove catheter problem Code(s): T83.9XXA - UNSP COMPLICATION OF GENITOURINARY PROSTH DEV/GRFT, INIT Qualifiers: Encounter type: initial encounter Qualified Code(s): T83.9XXA - Unspecified complication of genitourinary prosthetic device, implant and graft, initial encounter (5) HLD (hyperlipidemia) Code(s): E78.5 - HYPERLIPIDEMIA, UNSPECIFIED Qualifiers: Hyperlipidemia type: pure hypercholesterolemia Qualified Code(s): E78.00 - Pure hypercholesterolemia, unspecified; E78.0 - Pure hypercholesterolemia (6) Hypertensive heart disease Code(s): I11.9 - HYPERTENSIVE HEART DISEASE WITHOUT HEART FAILURE Qualifiers: Heart failure presence: without heart failure Qualified Code(s): I11.9 - Hypertensive heart disease without heart failure (7) Presence of drug-eluting stent in right coronary artery Code(s): Z95.5 - PRESENCE OF CORONARY ANGIOPLASTY IMPLANT AND GRAFT (8) S/P TURP Code(s): Z90.79 - ACQUIRED ABSENCE OF OTHER GENITAL ORGAN(S) (9) Sleep apnea Code(s): G47.30 - SLEEP APNEA, UNSPECIFIED Qualifiers: Sleep apnea type: obstructive Qualified Code(s): G47.33 - Obstructive sleep apnea (adult) (pediatric) (10) UTI (urinary tract infection) Code(s): N39.0 - URINARY TRACT INFECTION, SITE NOT SPECIFIED Qualifiers: Urinary tract infection type: acute cystitis Hematuria presence: with hematuria Qualified Code(s): N30.01 - Acute cystitis with hematuria (11) Urinary retention Code(s): R33.9 - RETENTION OF URINE, UNSPECIFIED Assessment/Plan 05/20/2018 Nuc stress: Mod inferior ischemia with small infarct, LVEF 52% 05/20/2018 Echo: Normal LV size with mod cLVH, LVEF 55-60%, mild LAE, mod MR, tr TR 05/21/2018 [facility] performed at [facility] for [place]/NSTEMI and moderate inferior ischemia. 2 vessel CAD 90-95% ostial LCx-OM (medium sized vessel) left alone, 90-95% prox RCA which was treated with implant Resolute [place] 4.0x18 mm FISH post- dilated with NC 4.5x15 balloon @ 14 SARAHY, normal LV fxn LVEF 65-70% with elevated LVEDP 27 mmHg, no aortic stenosis. Mynx deployed right STUNNER ANIMAL access site, no complications. Recommend optimal medical therapy for secondary prevention of cardiovascular disease, consider PCI of LCx-OM if remains symptomatic despite meds, patient is candidate for cardiac rehab. 1. Recurrent hematuria, clots and urinary retention s/p cystoscopy, fulguration of bleeding, evacuation of clots 2. R/o recurrent Sepsis source post TURP s/p cysto/evac clots/fulguration bleeding vessels 3. COPD, pulm fibrosis 4. CAD s/p FISH RCA 5. Diastolic dysfunction 6. Type 2 DM 7. Acute on CKD (obstructive) with proteinuria resolving 8. OSAS on cpap @ 7 cm H2O 9. Hypertensive heart disease 10. Hyperlipidemia 11 H/o PE 12. COVID PCR -, antibody + 13. Acute blood loss anemia post transfusion PLAN: 1. CBI until clear 2. Hold ASA and Plavix until hematuria resolves (FISH placed 2017) then restart Plavix alone given recurrent hematuria, monitor Hgb post transfusion 3. Continue Lipitor 80 qd 4. Continue Carvedilol 25 bid 5. Hold Cozaar 50 qd and furosemide 40 qd pending renal recovery, started hydralazine 50 bid 6. Continue Norvasc 10 qd 7. Empiric antibiotic course as per ID team 8. BD, O2 as needed, cpap @ 7 cm H2O nightly
[2020-04-05] MEDS ORDERED: MEROPENEM 1 GM VIAL (RESTRICTED TO ID) IVPB ONE ×2 (09:22→16:53)
[2020-04-05] MEDS ORDERED: DEXTROSE 5%-WATER 100 ML IVPB ONE ×2 (09:22→16:53)
[2020-04-05] MEDS: amLODIPine BESYLATE 10 MG TABLET (FP) PO SCH (09:24)
[2020-04-05] MEDS: CARVEDILOL 25 MG TABLET (FP) PO SCH ×2 (09:24→21:27)
[2020-04-05] MEDS: hydrALAZINE HCL 50 MG TABLET (FP) PO SCH ×2 (09:24→21:27)
[2020-04-05] MEDS: UMECLIDINIUM/VILANTEROL (ANORO) 62.5/25 MCG INHALER IH SCH (09:25)
[2020-04-05] MEDS: BUDESONIDE/FORMETEROL FUMARATE 160/4.5 mcg INHALER IH SCH ×2 (09:25→21:47)
--- NOTE | 2020-04-05 13:56 | PN ---
Progress Note, Physician History of Present Illness: feels better on cbi - Current Medication List Current Medications: Active Medications Acetaminophen (Tylenol -) 650 mg PO TID [facility] Last Admin: 04/05/20 13:41 Dose: 650 mg Documented by: Albuterol Sulfate (Ventolin Hfa Inhaler -) 2 puff IH RQID [facility] Last Admin: 04/05/20 12:49 Dose: 2 puff Documented by: Amlodipine Besylate (Norvasc -) 10 mg PO DAILY [facility] Last Admin: 04/05/20 09:24 Dose: 10 mg Documented by: Atorvastatin Calcium (Lipitor -) 80 mg PO HS [facility] Last Admin: 04/04/20 21:02 Dose: 80 mg Documented by: Budesonide/Formoterol Fumarate (Symbicort 160/4.5mcg -) 2 puff IH BID [facility] Last Admin: 04/05/20 09:25 Dose: 2 puff Documented by: Carvedilol (Coreg -) 25 mg PO BID [facility] Last Admin: 04/05/20 09:24 Dose: 25 mg Documented by: Docusate Sodium (Colace -) 100 mg PO Q12H PRN PRN Reason: CONSTIPATION Last Admin: 04/04/20 21:02 Dose: 100 mg Documented by: Glipizide (Glucotrol -) 5 mg PO DAILY@0700 [facility] Last Admin: 04/05/20 06:02 Dose: 5 mg Documented by: Hydralazine HCl (Apresoline -) 50 mg PO BID [facility] Last Admin: 04/05/20 09:24 Dose: 50 mg Documented by: Hydromorphone HCl (Dilaudid Vial -) 2 mg IVPB Q4H PRN PRN Reason: PAIN LEVEL 7 - 10 Last Admin: 04/04/20 21:04 Dose: 2 mg Documented by: Meropenem 1 gm/ Dextrose 100 mls @ 200 mls/hr IVPB Q8H-IV [facility] Last Admin: 04/05/20 09:24 Dose: 200 mls/hr Documented by: Potassium Chloride 10 meq/ (Sodium Chloride) 1,005 mls @ 60 mls/hr IVPB Q16H [facility] Last Admin: 04/05/20 00:50 Dose: 60 mls/hr Documented by: Ondansetron HCl (Zofran Injection) 4 mg IVPUSH Q6H PRN PRN Reason: NAUSEA AND/OR VOMITING Umeclidinium/Vilanterol (Anoro Ellipta 62.5-25 Mcg Inh) 1 puff IH DAILY [facility] Last Admin: 04/05/20 09:25 Dose: 1 puff Documented by: Zolpidem Tartrate (Ambien -) 5 mg PO HS PRN PRN Reason: INSOMNIA Stop: 04/06/20 06:00 Last Admin: 04/04/20 23:02 Dose: 5 mg Documented by: - Objective Vital Signs: Vital Signs Temperature 97.9 F 04/05/20 13:35 Pulse Rate 75 04/05/20 13:35 Respiratory Rate 19 04/05/20 13:35 Blood Pressure 167/67 04/05/20 13:35 O2 Sat by Pulse Oximetry (%) 98 04/05/20 13:35 Constitutional: Yes: No Distress, Calm Cardiovascular: Yes: S1, S2 Respiratory: Yes: Regular, CTA Bilaterally Gastrointestinal: Yes: Normal Bowel Sounds, Soft Genitourinary: Yes: Dove Present, Hematuria, Other (on cbi) Musculoskeletal: Yes: WNL Extremities: Yes: WNL Neurological: Yes: Alert, Oriented Psychiatric: Yes: Alert, Oriented Labs: CBC, BMP 04/05/20 06:54 04/05/20 06:54 INR, PTT INR 1.04 (0.83-1.09) 03/31/20 01:45 Assessment/Plan Problem List - Problems (1) Hematuria Code(s): R31.9 - HEMATURIA, UNSPECIFIED Qualifiers: Hematuria type: gross Qualified Code(s): R31.0 - Gross hematuria (2) Acute RI, inferior wall, initial episode of care Code(s): I21.19 - STEMI INVOLVING OTH CORONARY ARTERY OF INFERIOR WALL (3) Qmvqw-eh-uhktnhy kidney injury Code(s): N17.9 - ACUTE KIDNEY FAILURE, UNSPECIFIED; N18.9 - CHRONIC KIDNEY DISEASE, UNSPECIFIED Qualifiers: Chronic kidney disease stage: stage 2 (mild) (4) BPH (benign prostatic hyperplasia) Code(s): N40.0 - BENIGN PROSTATIC HYPERPLASIA WITHOUT LOWER URINRY TRACT SYMP (5) CKD (chronic kidney disease) Code(s): N18.9 - CHRONIC KIDNEY DISEASE, UNSPECIFIED (6) Calcaneal spur, right foot Code(s): M77.31 - CALCANEAL SPUR, RIGHT FOOT (7) Cystitis Code(s): N30.90 - CYSTITIS, UNSPECIFIED WITHOUT HEMATURIA (8) Dysuria Code(s): R30.0 - DYSURIA (9) HLD (hyperlipidemia) Code(s): E78.5 - HYPERLIPIDEMIA, UNSPECIFIED Qualifiers: Hyperlipidemia type: pure hypercholesterolemia Qualified Code(s): E78.00 - Pure hypercholesterolemia, unspecified; E78.0 - Pure hypercholesterolemia (10) Hypercholesterolemia Code(s): E78.00 - PURE HYPERCHOLESTEROLEMIA, UNSPECIFIED (11) Hypokalemia Code(s): E87.6 - HYPOKALEMIA (12) Lumbar radiculopathy, chronic Code(s): M54.16 - RADICULOPATHY, LUMBAR REGION (13) NSTEMI (non-ST elevated myocardial infarction) Code(s): I21.4 - NON-ST ELEVATION (NSTEMI) MYOCARDIAL INFARCTION (14) Obesity (BMI 30.0-34.9) Code(s): E66.9 - OBESITY, UNSPECIFIED (15) Presence of drug-eluting stent in right coronary artery Code(s): Z95.5 - PRESENCE OF CORONARY ANGIOPLASTY IMPLANT AND GRAFT (16) S/P TURP Code(s): Z90.79 - ACQUIRED ABSENCE OF OTHER GENITAL ORGAN(S) (17) Shingles (herpes zoster) polyneuropathy Code(s): B02.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 (18) Sleep apnea Code(s): G47.30 - SLEEP APNEA, UNSPECIFIED Qualifiers: Sleep apnea type: obstructive Qualified Code(s): G47.33 - Obstructive sleep apnea (adult) (pediatric) (19) Syncope Code(s): R55 - SYNCOPE AND COLLAPSE (20) UTI (urinary tract infection) Code(s): N39.0 - URINARY TRACT INFECTION, SITE NOT SPECIFIED Qualifiers: Urinary tract infection type: acute cystitis Hematuria presence: with hematuria Qualified Code(s): N30.01 - Acute cystitis with hematuria (21) Urinary retention Code(s): R33.9 - RETENTION OF URINE, UNSPECIFIED plan abx rest as per urology monitor hematuria rest as per the team repeat covid testing
--- NOTE | 2020-04-05 14:04 | PN ---
Progress Note (short form) - Note Progress Note: Resting in a chair on RA. Dove changed by Urology last night. Hematuria improving. No CP or SOB. Intake & Output 04/02/20 04/03/20 04/04/20 04/05/20 23:59 23:59 23:59 23:59 Intake Total 90379 76332 63786 2690 Output Total 27067 77864 92083 4100 Balance -1670 2360 -3740 -1410 Weight 211 lb Last Vital Signs Temp Pulse Resp BP Pulse Ox 97.9 F 75 19 167/67 98 04/05/20 13:35 04/05/20 13:35 04/05/20 13:35 04/05/20 13:35 04/05/20 13:35 Active Medications Acetaminophen (Tylenol -) 650 mg PO TID [facility] Last Admin: 04/05/20 13:41 Dose: 650 mg Documented by: Albuterol Sulfate (Ventolin Hfa Inhaler -) 2 puff IH RQID [facility] Last Admin: 04/05/20 12:49 Dose: 2 puff Documented by: Amlodipine Besylate (Norvasc -) 10 mg PO DAILY [facility] Last Admin: 04/05/20 09:24 Dose: 10 mg Documented by: Atorvastatin Calcium (Lipitor -) 80 mg PO HS [facility] Last Admin: 04/04/20 21:02 Dose: 80 mg Documented by: Budesonide/Formoterol Fumarate (Symbicort 160/4.5mcg -) 2 puff IH BID [facility] Last Admin: 04/05/20 09:25 Dose: 2 puff Documented by: Carvedilol (Coreg -) 25 mg PO BID [facility] Last Admin: 04/05/20 09:24 Dose: 25 mg Documented by: Docusate Sodium (Colace -) 100 mg PO Q12H PRN PRN Reason: CONSTIPATION Last Admin: 04/04/20 21:02 Dose: 100 mg Documented by: Glipizide (Glucotrol -) 5 mg PO DAILY@0700 [facility] Last Admin: 04/05/20 06:02 Dose: 5 mg Documented by: Hydralazine HCl (Apresoline -) 50 mg PO BID [facility] Last Admin: 04/05/20 09:24 Dose: 50 mg Documented by: Hydromorphone HCl (Dilaudid Vial -) 2 mg IVPB Q4H PRN PRN Reason: PAIN LEVEL 7 - 10 Last Admin: 04/04/20 21:04 Dose: 2 mg Documented by: Meropenem 1 gm/ Dextrose 100 mls @ 200 mls/hr IVPB Q8H-IV [facility] Last Admin: 04/05/20 09:24 Dose: 200 mls/hr Documented by: Potassium Chloride 10 meq/ (Sodium Chloride) 1,005 mls @ 60 mls/hr IVPB Q16H [facility] Last Admin: 04/05/20 00:50 Dose: 60 mls/hr Documented by: Ondansetron HCl (Zofran Injection) 4 mg IVPUSH Q6H PRN PRN Reason: NAUSEA AND/OR VOMITING Umeclidinium/Vilanterol (Anoro Ellipta 62.5-25 Mcg Inh) 1 puff IH DAILY [facility] Last Admin: 04/05/20 09:25 Dose: 1 puff Documented by: Zolpidem Tartrate (Ambien -) 5 mg PO HS PRN PRN Reason: INSOMNIA Stop: 04/06/20 06:00 Last Admin: 04/04/20 23:02 Dose: 5 mg Documented by: Constitutional: Yes: No Distress, Calm Neck: Yes: Supple Cardiovascular: Yes: Regular Rate and Rhythm Respiratory: Yes: Regular, CTA Bilaterally Gastrointestinal: Yes: Normal Bowel Sounds, Soft Edema: No Labs: Laboratory Results - last 24 hr 03/31/20 04/05/20 04/05/20 11:55 06:54 06:54 WBC 8.0 RBC 2.97 L Hgb 8.8 L Hct 25.7 L MCV 86.5 MCH 29.5 MCHC 34.1 RDW 15.7 Plt Count 243 MPV 7.9 Absolute Neuts (auto) 5.5 Neutrophils % 69.0 Lymphocytes % 19.1 Monocytes % 8.3 Eosinophils % 3.4 Basophils % 0.2 Nucleated RBC % 0 Sodium 142 Potassium 3.4 L Chloride 106 Carbon Dioxide 28 Anion Gap 8 BUN 21.3 H Creatinine 1.1 Est GFR (CKD-EPI)AfAm 75.71 Est GFR (CKD-EPI)NonAf 65.32 Random Glucose 129 H Calcium 7.8 L Blood Type A POSITIVE Antibody Screen Negative Crossmatch See Detail Problem List - Problems (1) COVID-19 Code(s): U07.1 - COVID POSITIVE (2) BILL (acute kidney injury) Code(s): N17.9 - ACUTE KIDNEY FAILURE, UNSPECIFIED (3) Hematuria Code(s): R31.9 - HEMATURIA, UNSPECIFIED Qualifiers: Hematuria type: gross Qualified Code(s): R31.0 - Gross hematuria (4) Cooks-wl-zzxpsei kidney injury Code(s): N17.9 - ACUTE KIDNEY FAILURE, UNSPECIFIED; N18.9 - CHRONIC KIDNEY DISEASE, UNSPECIFIED Qualifiers: Chronic kidney disease stage: stage 2 (mild) (5) BPH (benign prostatic hyperplasia) Code(s): N40.0 - BENIGN PROSTATIC HYPERPLASIA WITHOUT LOWER URINRY TRACT SYMP (6) COPD (chronic obstructive pulmonary disease) with acute bronchitis Code(s): J44.0 - CHR OBSTRUCTIVE PULMON DISEASE WITH (ACUTE) LOWER RESP INFCT; J20.9 - ACUTE BRONCHITIS, UNSPECIFIED (7) Coronary artery disease Code(s): I25.10 - ATHSCL HEART DISEASE OF [place] CORONARY ARTERY W/O ANG PCTRS Qualifiers: Coronary Disease-Associated Artery/Lesion type: [place] artery [place] vs. transplanted heart: [place] heart Associated angina: without angina Qualified Code(s): I25.10 - Atherosclerotic heart disease of [place] coronary artery without angina pectoris (8) HLD (hyperlipidemia) Code(s): E78.5 - HYPERLIPIDEMIA, UNSPECIFIED Qualifiers: Hyperlipidemia type: pure hypercholesterolemia Qualified Code(s): E78.00 - Pure hypercholesterolemia, unspecified; E78.0 - Pure hypercholesterolemia (9) Hematuria Code(s): R31.9 - HEMATURIA, UNSPECIFIED Qualifiers: Hematuria type: gross Qualified Code(s): R31.0 - Gross hematuria (10) Obesity (BMI 30.0-34.9) Code(s): E66.9 - OBESITY, UNSPECIFIED (11) S/P TURP Code(s): Z90.79 - ACQUIRED ABSENCE OF OTHER GENITAL ORGAN(S) (12) Sleep apnea Code(s): G47.30 - SLEEP APNEA, UNSPECIFIED Qualifiers: Sleep apnea type: obstructive Qualified Code(s): G47.33 - Obstructive sleep apnea (adult) (pediatric) (13) Urinary retention Code(s): R33.9 - RETENTION OF URINE, UNSPECIFIED (14) Pulmonary fibrosis Code(s): J84.10 - PULMONARY FIBROSIS, UNSPECIFIED IMP HEMATURIA/URINARY RETENTION S/P CYSTO/FULGURATION OF BLEEDING EVACUATION OF CLOTS SECONDARY TO PROSTATIC HEMORRHAGE H/O COVID COMPLICATED BY ACUTE RESPIRATORY FAILURE,?PE ASHD S/P STENT' COPD PULMONARY FIBROSIS HTN HLD H/O PE S/P TURP 02/23/20 ACUTE ON CHRONOC KIDNEY DISEASE KENN ON CPAP 7 PLAN O2 NEEDED INHALED BRONCHODILATORS ABX PER ID CHEST CT CAN BE PERFORMED BEFORE DISCHARGE CPAP @ 7 CM H2O (SON WILL BRING IN HIS DEVICE) Dr Ambrosio
--- NOTE | 2020-04-05 14:32 | PN ---
AMANDA Gamino Note Chief Complaint: pt w/o c/o History of Present Illness: POD # 4 s/p cysto fulg - Objective Vital Signs: Vital Signs Temperature 97.9 F 04/05/20 13:35 Pulse Rate 75 04/05/20 13:35 Respiratory Rate 19 04/05/20 13:35 Blood Pressure 167/67 04/05/20 13:35 O2 Sat by Pulse Oximetry (%) 98 04/05/20 13:35 Constitutional: Yes: Well Nourished, No Distress, Calm Gastrointestinal: Yes: WNL, Normal Bowel Sounds Genitourinary: Yes: Dove Present. No: Hematuria (clear cbi) Labs/Additional Data: CBC, BMP 04/05/20 06:54 04/05/20 06:54 INR, PTT INR 1.04 (0.83-1.09) 03/31/20 01:45 Blood Type Blood Type A POSITIVE 03/31/20 11:55 Antibody Screen Negative 03/31/20 11:55 Problem List - Problems (1) Hematuria Assessment/Plan: discont cbi Code(s): R31.9 - HEMATURIA, UNSPECIFIED Qualifiers: Hematuria type: gross Qualified Code(s): R31.0 - Gross hematuria (2) Cystitis Code(s): N30.90 - CYSTITIS, UNSPECIFIED WITHOUT HEMATURIA
[2020-04-05] MEDS ORDERED: hydrALAZINE HCL 50 MG TABLET (FP) PO ONE (16:30)
--- NOTE | 2020-04-05 19:53 | PN ---
Progress Note, Physician History of Present Illness: Discussed with Dr Jj Pt do not want to leave with out a second opinion Pt COVID repeat is negative No Fever No SOB No chest pain No Palpitations No GI bleeding Hematuria better CT chest is still due - Current Medication List Current Medications: Active Medications Acetaminophen (Tylenol -) 650 mg PO TID [facility] Last Admin: 04/05/20 13:41 Dose: 650 mg Documented by: Albuterol Sulfate (Ventolin Hfa Inhaler -) 2 puff IH RQID [facility] Last Admin: 04/05/20 16:32 Dose: 2 puff Documented by: Amlodipine Besylate (Norvasc -) 10 mg PO DAILY [facility] Last Admin: 04/05/20 09:24 Dose: 10 mg Documented by: Atorvastatin Calcium (Lipitor -) 80 mg PO HS [facility] Last Admin: 04/04/20 21:02 Dose: 80 mg Documented by: Budesonide/Formoterol Fumarate (Symbicort 160/4.5mcg -) 2 puff IH BID [facility] Last Admin: 04/05/20 09:25 Dose: 2 puff Documented by: Carvedilol (Coreg -) 25 mg PO BID [facility] Last Admin: 04/05/20 09:24 Dose: 25 mg Documented by: Docusate Sodium (Colace -) 100 mg PO Q12H PRN PRN Reason: CONSTIPATION Last Admin: 04/04/20 21:02 Dose: 100 mg Documented by: Glipizide (Glucotrol -) 5 mg PO DAILY@0700 [facility] Last Admin: 04/05/20 06:02 Dose: 5 mg Documented by: Hydralazine HCl (Apresoline -) 50 mg PO BID [facility] Last Admin: 04/05/20 09:24 Dose: 50 mg Documented by: Hydromorphone HCl (Dilaudid Vial -) 2 mg IVPB Q4H PRN PRN Reason: PAIN LEVEL 7 - 10 Last Admin: 04/04/20 21:04 Dose: 2 mg Documented by: Meropenem 1 gm/ Dextrose 100 mls @ 200 mls/hr IVPB Q8H-IV [facility] Last Admin: 04/05/20 18:18 Dose: 200 mls/hr Documented by: Potassium Chloride 10 meq/ (Sodium Chloride) 1,005 mls @ 60 mls/hr IVPB Q16H [facility] Last Admin: 04/05/20 18:15 Dose: Not Given Documented by: Ondansetron HCl (Zofran Injection) 4 mg IVPUSH Q6H PRN PRN Reason: NAUSEA AND/OR VOMITING Umeclidinium/Vilanterol (Anoro Ellipta 62.5-25 Mcg Inh) 1 puff IH DAILY [facility] Last Admin: 04/05/20 09:25 Dose: 1 puff Documented by: Zolpidem Tartrate (Ambien -) 5 mg PO HS PRN PRN Reason: INSOMNIA Stop: 04/06/20 06:00 Last Admin: 04/04/20 23:02 Dose: 5 mg Documented by: - Objective Vital Signs: Vital Signs Temperature 98.2 F 04/05/20 18:25 Pulse Rate 70 04/05/20 18:25 Respiratory Rate 18 04/05/20 18:25 Blood Pressure 151/76 04/05/20 18:25 O2 Sat by Pulse Oximetry (%) 97 04/05/20 18:25 Constitutional: Yes: Calm Eyes: Yes: Conjunctiva Clear, EOM Intact HENT: Yes: Atraumatic, Normocephalic Neck: Yes: Supple, Trachea Midline Cardiovascular: Yes: Regular Rate and Rhythm, S1, S2 Respiratory: Yes: Regular, CTA Bilaterally Gastrointestinal: Yes: Normal Bowel Sounds, Soft Breast(s): Yes: Nipple Inversion Edema: No Peripheral Pulses WNL: Yes Neurological: Yes: Alert, Oriented, Cran Nerves II-XII Intact Labs: CBC, BMP 04/05/20 06:54 04/05/20 06:54 INR, PTT INR 1.04 (0.83-1.09) 03/31/20 01:45 Problem List - Problems (1) Hematuria Code(s): R31.9 - HEMATURIA, UNSPECIFIED Qualifiers: Hematuria type: gross Qualified Code(s): R31.0 - Gross hematuria (2) Acute CT, inferior wall, initial episode of care Code(s): I21.19 - STEMI INVOLVING OTH CORONARY ARTERY OF INFERIOR WALL (3) Luhel-fs-yqfdpxp kidney injury Code(s): N17.9 - ACUTE KIDNEY FAILURE, UNSPECIFIED; N18.9 - CHRONIC KIDNEY DISEASE, UNSPECIFIED Qualifiers: Chronic kidney disease stage: stage 2 (mild) (4) BPH (benign prostatic hyperplasia) Code(s): N40.0 - BENIGN PROSTATIC HYPERPLASIA WITHOUT LOWER URINRY TRACT SYMP (5) CKD (chronic kidney disease) Code(s): N18.9 - CHRONIC KIDNEY DISEASE, UNSPECIFIED (6) Calcaneal spur, right foot Code(s): M77.31 - CALCANEAL SPUR, RIGHT FOOT (7) Cystitis Code(s): N30.90 - CYSTITIS, UNSPECIFIED WITHOUT HEMATURIA (8) Dysuria Code(s): R30.0 - DYSURIA (9) HLD (hyperlipidemia) Code(s): E78.5 - HYPERLIPIDEMIA, UNSPECIFIED Qualifiers: Hyperlipidemia type: pure hypercholesterolemia Qualified Code(s): E78.00 - Pure hypercholesterolemia, unspecified; E78.0 - Pure hypercholesterolemia (10) Hypercholesterolemia Code(s): E78.00 - PURE HYPERCHOLESTEROLEMIA, UNSPECIFIED (11) Hypokalemia Code(s): E87.6 - HYPOKALEMIA (12) Lumbar radiculopathy, chronic Code(s): M54.16 - RADICULOPATHY, LUMBAR REGION (13) NSTEMI (non-ST elevated myocardial infarction) Code(s): I21.4 - NON-ST ELEVATION (NSTEMI) MYOCARDIAL INFARCTION (14) Obesity (BMI 30.0-34.9) Code(s): E66.9 - OBESITY, UNSPECIFIED (15) Presence of drug-eluting stent in right coronary artery Code(s): Z95.5 - PRESENCE OF CORONARY ANGIOPLASTY IMPLANT AND GRAFT (16) S/P TURP Code(s): Z90.79 - ACQUIRED ABSENCE OF OTHER GENITAL ORGAN(S) (17) Shingles (herpes zoster) polyneuropathy Code(s): B02.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 (18) Sleep apnea Code(s): G47.30 - SLEEP APNEA, UNSPECIFIED Qualifiers: Sleep apnea type: obstructive Qualified Code(s): G47.33 - Obstructive sleep apnea (adult) (pediatric) (19) Syncope Code(s): R55 - SYNCOPE AND COLLAPSE (20) UTI (urinary tract infection) Code(s): N39.0 - URINARY TRACT INFECTION, SITE NOT SPECIFIED Qualifiers: Urinary tract infection type: acute cystitis Hematuria presence: with hematuria Qualified Code(s): N30.01 - Acute cystitis with hematuria (21) Urinary retention Code(s): R33.9 - RETENTION OF URINE, UNSPECIFIED Assessment/Plan Hematuria / clots s/p Cysto/fulguration of bleed POD#4 Complicated UTI Urinary retention BILL/CKD Indwelling Dove catheter Pt will have CT chest as per Pulmonary
[2020-04-05] MEDS: ATORVASTATIN CA 80 MG TABLET (FP) PO SCH (21:27)
[2020-04-05] MEDS: POTASSIUM CHLORIDE ORAL LIQUID 20 MEQ/15 ML PO SCH (21:27)
[2020-04-05] MEDS: ZOLPIDEM TARTRATE 5 MG TABLET PO PRN (21:51)
[2020-04-06] MEDS ORDERED: DEXTROSE 5%-WATER 100 ML IVPB ONE ×3 (02:39→17:16)
[2020-04-06] MEDS ORDERED: MEROPENEM 1 GM VIAL (RESTRICTED TO ID) IVPB ONE ×3 (02:39→17:16)
[2020-04-06] MEDS: POTASSIUM CHLORIDE 10 MEQ in SODIUM CHLORIDE 0.45% 1,000 ML IVPB SCH ×2 (02:43→19:20)
[2020-04-06] MEDS: MEROPENEM 1 GM in DEXTROSE 5%-WATER 100 ML IVPB SCH ×3 (02:45→17:30)
[2020-04-06] MEDS: ACETAMINOPHEN 325 MG TABLET (FP) PO SCH ×3 (06:01→21:22)
[2020-04-06] MEDS: glipiZIDE 5 MG TABLET (FP) PO SCH (06:02)
[2020-04-06 07:30] LABS: BASO % 0.3 % (0-2.0); EOS % 4.2 % (0-4.5); HEMOGLOBIN 8.6 GM/dL (11.7-16.9); LYMPH % 17.7 % (8-40); MCH 29.9 pg (25.7-33.7); MCHC 34.2 g/dl (32.0-35.9); MEAN CELL VOLUME 87.4 fl (80-96); MONO % 9.2 % (3.8-10.2); NEUT % 68.6 % (42.8-82.8); PLATELET COUNT 207 K/MM3 (134-434); RBC 2.86 M/mm3 (4.00-5.60); RDW 15.4 % (11.9-15.9); WHITE BLOOD COUNT 8.9 K/mm3 (4.0-10.0)
[2020-04-06 07:40] LABS: BLOOD UREA NITROGEN 18.4 mg/dL (7-18); CALCIUM 7.7 mg/dL (8.5-10.1); CREATININE 1.1 mg/dL (0.55-1.3); POTASSIUM 3.1 mmol/L (3.5-5.1)
[2020-04-06] MEDS ORDERED: PT OWN MED DRAWER 7, Y5N ONE (09:26)
[2020-04-06] MEDS: hydrALAZINE HCL 50 MG TABLET (FP) PO SCH ×2 (09:45→21:21)
[2020-04-06] MEDS: POTASSIUM CHLORIDE ORAL LIQUID 20 MEQ/15 ML PO SCH ×3 (09:46→18:04)
[2020-04-06] MEDS: CARVEDILOL 25 MG TABLET (FP) PO SCH ×2 (09:46→21:21)
[2020-04-06] MEDS: amLODIPine BESYLATE 10 MG TABLET (FP) PO SCH (09:46)
[2020-04-06] MEDS: BUDESONIDE/FORMETEROL FUMARATE 160/4.5 mcg INHALER IH SCH ×2 (09:48→21:28)
[2020-04-06] MEDS: ALBUTEROL SO4 HFA INHALER IH SCH ×4 (09:49→21:28)
--- NOTE | 2020-04-06 10:12 | PN ---
AMANDA Gamino Note Chief Complaint: pt w/o c/o History of Present Illness: POD # 5 s/p cysto fulg - Objective Vital Signs: Vital Signs Temperature 98.3 F 04/06/20 06:00 Pulse Rate 81 04/06/20 06:00 Respiratory Rate 18 04/06/20 06:00 Blood Pressure 175/70 H 04/06/20 06:00 O2 Sat by Pulse Oximetry (%) 98 04/06/20 06:00 Constitutional: Yes: Well Nourished, No Distress, Calm Genitourinary: Yes: Agu[place] Present (clear yellow). No: Bladder Distention, Hematuria Labs/Additional Data: CBC, BMP 04/06/20 06:40 04/06/20 06:40 INR, PTT INR 1.04 (0.83-1.09) 03/31/20 01:45 Blood Type Blood Type A POSITIVE 03/31/20 11:55 Antibody Screen Negative 03/31/20 11:55 Problem List - Problems (1) Hematuria Assessment/Plan: aguilar removed for trial of void Code(s): R31.9 - HEMATURIA, UNSPECIFIED Qualifiers: Hematuria type: gross Qualified Code(s): R31.0 - Gross hematuria (2) Cystitis Code(s): N30.90 - CYSTITIS, UNSPECIFIED WITHOUT HEMATURIA
--- NOTE | 2020-04-06 11:24 | PN ---
Progress Note, Physician History of Present Illness: stable urology note noted no hematuria - Current Medication List Current Medications: Active Medications Acetaminophen (Tylenol -) 650 mg PO TID [facility] Last Admin: 04/06/20 06:01 Dose: 650 mg Documented by: Albuterol Sulfate (Ventolin Hfa Inhaler -) 2 puff IH RQID [facility] Last Admin: 04/06/20 09:49 Dose: 2 puff Documented by: Amlodipine Besylate (Norvasc -) 10 mg PO DAILY [facility] Last Admin: 04/06/20 09:46 Dose: 10 mg Documented by: Atorvastatin Calcium (Lipitor -) 80 mg PO HS [facility] Last Admin: 04/05/20 21:27 Dose: 80 mg Documented by: Budesonide/Formoterol Fumarate (Symbicort 160/4.5mcg -) 2 puff IH BID [facility] Last Admin: 04/06/20 09:48 Dose: 2 puff Documented by: Carvedilol (Coreg -) 25 mg PO BID [facility] Last Admin: 04/06/20 09:46 Dose: 25 mg Documented by: Docusate Sodium (Colace -) 100 mg PO Q12H PRN PRN Reason: CONSTIPATION Last Admin: 04/04/20 21:02 Dose: 100 mg Documented by: Glipizide (Glucotrol -) 5 mg PO DAILY@0700 [facility] Last Admin: 04/06/20 06:02 Dose: 5 mg Documented by: Hydralazine HCl (Apresoline -) 50 mg PO BID [facility] Last Admin: 04/06/20 09:45 Dose: 50 mg Documented by: Hydromorphone HCl (Dilaudid Vial -) 2 mg IVPB Q4H PRN PRN Reason: PAIN LEVEL 7 - 10 Last Admin: 04/04/20 21:04 Dose: 2 mg Documented by: Meropenem 1 gm/ Dextrose 100 mls @ 200 mls/hr IVPB Q8H-IV [facility] Last Admin: 04/06/20 09:47 Dose: 200 mls/hr Documented by: Potassium Chloride 10 meq/ (Sodium Chloride) 1,005 mls @ 60 mls/hr IVPB Q16H [facility] Last Admin: 04/06/20 02:43 Dose: 60 mls/hr Documented by: Ondansetron HCl (Zofran Injection) 4 mg IVPUSH Q6H PRN PRN Reason: NAUSEA AND/OR VOMITING Umeclidinium/Vilanterol (Anoro Ellipta 62.5-25 Mcg Inh) 1 puff IH DAILY [facility] Last Admin: 04/05/20 09:25 Dose: 1 puff Documented by: - Objective Vital Signs: Vital Signs Temperature 98.3 F 04/06/20 06:00 Pulse Rate 81 04/06/20 06:00 Respiratory Rate 18 04/06/20 06:00 Blood Pressure 175/70 H 04/06/20 06:00 O2 Sat by Pulse Oximetry (%) 98 04/06/20 06:00 Constitutional: Yes: No Distress, Calm Cardiovascular: Yes: S1, S2 Respiratory: Yes: Regular, CTA Bilaterally Gastrointestinal: Yes: Normal Bowel Sounds, Soft Musculoskeletal: Yes: WNL Extremities: Yes: WNL Neurological: Yes: Alert, Oriented Psychiatric: Yes: Alert, Oriented Labs: CBC, BMP 04/06/20 06:40 04/06/20 06:40 INR, PTT INR 1.04 (0.83-1.09) 03/31/20 01:45 Assessment/Plan Problem List - Problems (1) Hematuria Code(s): R31.9 - HEMATURIA, UNSPECIFIED Qualifiers: Hematuria type: gross Qualified Code(s): R31.0 - Gross hematuria (2) Acute DC, inferior wall, initial episode of care Code(s): I21.19 - STEMI INVOLVING OTH CORONARY ARTERY OF INFERIOR WALL (3) Visfx-sk-zlxxdzs kidney injury Code(s): N17.9 - ACUTE KIDNEY FAILURE, UNSPECIFIED; N18.9 - CHRONIC KIDNEY DISEASE, UNSPECIFIED Qualifiers: Chronic kidney disease stage: stage 2 (mild) (4) BPH (benign prostatic hyperplasia) Code(s): N40.0 - BENIGN PROSTATIC HYPERPLASIA WITHOUT LOWER URINRY TRACT SYMP (5) CKD (chronic kidney disease) Code(s): N18.9 - CHRONIC KIDNEY DISEASE, UNSPECIFIED (6) Calcaneal spur, right foot Code(s): M77.31 - CALCANEAL SPUR, RIGHT FOOT (7) Cystitis Code(s): N30.90 - CYSTITIS, UNSPECIFIED WITHOUT HEMATURIA (8) Dysuria Code(s): R30.0 - DYSURIA (9) HLD (hyperlipidemia) Code(s): E78.5 - HYPERLIPIDEMIA, UNSPECIFIED Qualifiers: Hyperlipidemia type: pure hypercholesterolemia Qualified Code(s): E78.00 - Pure hypercholesterolemia, unspecified; E78.0 - Pure hypercholesterolemia (10) Hypercholesterolemia Code(s): E78.00 - PURE HYPERCHOLESTEROLEMIA, UNSPECIFIED (11) Hypokalemia Code(s): E87.6 - HYPOKALEMIA (12) Lumbar radiculopathy, chronic Code(s): M54.16 - RADICULOPATHY, LUMBAR REGION (13) NSTEMI (non-ST elevated myocardial infarction) Code(s): I21.4 - NON-ST ELEVATION (NSTEMI) MYOCARDIAL INFARCTION (14) Obesity (BMI 30.0-34.9) Code(s): E66.9 - OBESITY, UNSPECIFIED (15) Presence of drug-eluting stent in right coronary artery Code(s): Z95.5 - PRESENCE OF CORONARY ANGIOPLASTY IMPLANT AND GRAFT (16) S/P TURP Code(s): Z90.79 - ACQUIRED ABSENCE OF OTHER GENITAL ORGAN(S) (17) Shingles (herpes zoster) polyneuropathy Code(s): B02.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 (18) Sleep apnea Code(s): G47.30 - SLEEP APNEA, UNSPECIFIED Qualifiers: Sleep apnea type: obstructive Qualified Code(s): G47.33 - Obstructive sleep apnea (adult) (pediatric) (19) Syncope Code(s): R55 - SYNCOPE AND COLLAPSE (20) UTI (urinary tract infection) Code(s): N39.0 - URINARY TRACT INFECTION, SITE NOT SPECIFIED Qualifiers: Urinary tract infection type: acute cystitis Hematuria presence: with hematuria Qualified Code(s): N30.01 - Acute cystitis with hematuria (21) Urinary retention Code(s): R33.9 - RETENTION OF URINE, UNSPECIFIED plan abx rest as per urology monitor hematuria rest as per the team voiding trial
--- NOTE | 2020-04-06 11:47 | PN ---
Progress Note, Physician Chief Complaint: Events noted Not in distress History of Present Illness: Patient was seen and examined. Awake and alert. Chart was reviewed Denies chest pain, SOB or palpitations - Current Medication List Current Medications: Active Medications Acetaminophen (Tylenol -) 650 mg PO TID [facility] Last Admin: 04/06/20 06:01 Dose: 650 mg Documented by: Albuterol Sulfate (Ventolin Hfa Inhaler -) 2 puff IH RQID [facility] Last Admin: 04/06/20 09:49 Dose: 2 puff Documented by: Amlodipine Besylate (Norvasc -) 10 mg PO DAILY [facility] Last Admin: 04/06/20 09:46 Dose: 10 mg Documented by: Atorvastatin Calcium (Lipitor -) 80 mg PO HS [facility] Last Admin: 04/05/20 21:27 Dose: 80 mg Documented by: Budesonide/Formoterol Fumarate (Symbicort 160/4.5mcg -) 2 puff IH BID [facility] Last Admin: 04/06/20 09:48 Dose: 2 puff Documented by: Carvedilol (Coreg -) 25 mg PO BID [facility] Last Admin: 04/06/20 09:46 Dose: 25 mg Documented by: Docusate Sodium (Colace -) 100 mg PO Q12H PRN PRN Reason: CONSTIPATION Last Admin: 04/04/20 21:02 Dose: 100 mg Documented by: Glipizide (Glucotrol -) 5 mg PO DAILY@0700 [facility] Last Admin: 04/06/20 06:02 Dose: 5 mg Documented by: Hydralazine HCl (Apresoline -) 50 mg PO BID [facility] Last Admin: 04/06/20 09:45 Dose: 50 mg Documented by: Hydromorphone HCl (Dilaudid Vial -) 2 mg IVPB Q4H PRN PRN Reason: PAIN LEVEL 7 - 10 Last Admin: 04/04/20 21:04 Dose: 2 mg Documented by: Meropenem 1 gm/ Dextrose 100 mls @ 200 mls/hr IVPB Q8H-IV [facility] Last Admin: 04/06/20 09:47 Dose: 200 mls/hr Documented by: Potassium Chloride 10 meq/ (Sodium Chloride) 1,005 mls @ 60 mls/hr IVPB Q16H [facility] Last Admin: 04/06/20 02:43 Dose: 60 mls/hr Documented by: Ondansetron HCl (Zofran Injection) 4 mg IVPUSH Q6H PRN PRN Reason: NAUSEA AND/OR VOMITING Umeclidinium/Vilanterol (Anoro Ellipta 62.5-25 Mcg Inh) 1 puff IH DAILY [facility] Last Admin: 04/05/20 09:25 Dose: 1 puff Documented by: - Objective Vital Signs: Vital Signs Temperature 98.3 F 04/06/20 06:00 Pulse Rate 81 04/06/20 06:00 Respiratory Rate 18 04/06/20 06:00 Blood Pressure 175/70 H 04/06/20 06:00 O2 Sat by Pulse Oximetry (%) 98 04/06/20 06:00 HENT: Yes: Atraumatic Neck: Yes: Supple Cardiovascular: Yes: Regular Rate and Rhythm, S1, S2 Respiratory: Yes: CTA Bilaterally Gastrointestinal: Yes: Normal Bowel Sounds, Soft. No: Tenderness Edema: No Labs: CBC, BMP 04/06/20 06:40 04/06/20 06:40 Problem List - Problems (1) COVID-19 Code(s): U07.1 - COVID POSITIVE (2) Hematuria Code(s): R31.9 - HEMATURIA, UNSPECIFIED Qualifiers: Hematuria type: gross Qualified Code(s): R31.0 - Gross hematuria (3) Pulmonary fibrosis Code(s): J84.10 - PULMONARY FIBROSIS, UNSPECIFIED (4) Uijmm-ig-vbefssc kidney injury Code(s): N17.9 - ACUTE KIDNEY FAILURE, UNSPECIFIED; N18.9 - CHRONIC KIDNEY DI SEASE, UNSPECIFIED Qualifiers: Chronic kidney disease stage: stage 2 (mild) (5) CKD (chronic kidney disease) Code(s): N18.9 - CHRONIC KIDNEY DISEASE, UNSPECIFIED (6) Coronary artery disease Code(s): I25.10 - ATHSCL HEART DISEASE OF [place] CORONARY ARTERY W/O ANG PCTRS Qualifiers: Coronary Disease-Associated Artery/Lesion type: [place] artery [place] vs. transplanted heart: [place] heart Associated angina: without angina Qualified Code(s): I25.10 - Atherosclerotic heart disease of [place] coronary artery without angina pectoris (7) Hypercholesterolemia Code(s): E78.00 - PURE HYPERCHOLESTEROLEMIA, UNSPECIFIED (8) Hypertensive heart disease Code(s): I11.9 - HYPERTENSIVE HEART DISEASE WITHOUT HEART FAILURE Qualifiers: Heart failure presence: without heart failure Qualified Code(s): I11.9 - Hypertensive heart disease without heart failure (9) Presence of drug-eluting stent in right coronary artery Code(s): Z95.5 - PRESENCE OF CORONARY ANGIOPLASTY IMPLANT AND GRAFT (10) S/P TURP Code(s): Z90.79 - ACQUIRED ABSENCE OF OTHER GENITAL ORGAN(S) (11) Sepsis Code(s): A41.9 - SEPSIS, UNSPECIFIED ORGANISM Qualifiers: Sepsis type: sepsis due to unspecified organism Sepsis acute organ dysfunction status: unspecified Qualified Code(s): A41.9 - Sepsis, unspecified organism (12) Sleep apnea Code(s): G47.30 - SLEEP APNEA, UNSPECIFIED Qualifiers: Sleep apnea type: obstructive Qualified Code(s): G47.33 - Obstructive sleep apnea (adult) (pediatric) Assessment/Plan 1. Recurrent hematuria, clots and urinary retention s/p cystoscopy, fulguration of bleeding, evacuation of clots 2. Recurrent Sepsis source post TURP s/p cysto/evac clots/fulguration bleeding vessels 3. COPD and pulmonary fibrosis 4. CAD s/p FISH to RCA 5. Diastolic dysfunction 6. Type 2 DM 7. Acute on CKD (obstructive) with proteinuria 8. OSAS on CPAP 9. Hypertensive heart disease 10. Hyperlipidemia 11 History of PE 12. COVID + 13. Acute blood loss anemia post transfusion PLAN: 1. following 2. Hold ASA and Plavix until hematuria resolves (FISH placed 2017) then restart Plavix alone given recurrent hematuria, monitor Hgb post transfusion 3. Continue Lipitor 80 mg QD 4. Continue Carvedilol 25 mg BID 5. Hold Cozaar 50 mg QD and Furosemide 40 mg QD pending renal recovery 6. Continue Norvasc 10 mg QD and Hydralazine 50 mg BID 7. Empiric antibiotic course as per ID team 8. Bronchodilator, O2 as needed and CPAP nightly Robin Arellano MD
[2020-04-06] MEDS: UMECLIDINIUM/VILANTEROL (ANORO) 62.5/25 MCG INHALER IH SCH (12:10)
--- NOTE | 2020-04-06 12:20 | PN ---
Progress Note, Physician History of Present Illness: Pt Urine clean today No Blood clots Hypokalemia KCL 40 PO BID today - Current Medication List Current Medications: Active Medications Acetaminophen (Tylenol -) 650 mg PO TID [facility] Last Admin: 04/06/20 06:01 Dose: 650 mg Documented by: Albuterol Sulfate (Ventolin Hfa Inhaler -) 2 puff IH RQID [facility] Last Admin: 04/06/20 12:10 Dose: 2 puff Documented by: Amlodipine Besylate (Norvasc -) 10 mg PO DAILY [facility] Last Admin: 04/06/20 09:46 Dose: 10 mg Documented by: Atorvastatin Calcium (Lipitor -) 80 mg PO HS [facility] Last Admin: 04/05/20 21:27 Dose: 80 mg Documented by: Budesonide/Formoterol Fumarate (Symbicort 160/4.5mcg -) 2 puff IH BID [facility] Last Admin: 04/06/20 09:48 Dose: 2 puff Documented by: Carvedilol (Coreg -) 25 mg PO BID [facility] Last Admin: 04/06/20 09:46 Dose: 25 mg Documented by: Docusate Sodium (Colace -) 100 mg PO Q12H PRN PRN Reason: CONSTIPATION Last Admin: 04/04/20 21:02 Dose: 100 mg Documented by: Glipizide (Glucotrol -) 5 mg PO DAILY@0700 [facility] Last Admin: 04/06/20 06:02 Dose: 5 mg Documented by: Hydralazine HCl (Apresoline -) 50 mg PO BID [facility] Last Admin: 04/06/20 09:45 Dose: 50 mg Documented by: Hydromorphone HCl (Dilaudid Vial -) 2 mg IVPB Q4H PRN PRN Reason: PAIN LEVEL 7 - 10 Last Admin: 04/04/20 21:04 Dose: 2 mg Documented by: Meropenem 1 gm/ Dextrose 100 mls @ 200 mls/hr IVPB Q8H-IV [facility] Last Admin: 04/06/20 09:47 Dose: 200 mls/hr Documented by: Potassium Chloride 10 meq/ (Sodium Chloride) 1,005 mls @ 60 mls/hr IVPB Q16H [facility] Last Admin: 04/06/20 02:43 Dose: 60 mls/hr Documented by: Ondansetron HCl (Zofran Injection) 4 mg IVPUSH Q6H PRN PRN Reason: NAUSEA AND/OR VOMITING Potassium Chloride (Potassium Chloride Oral Liquid) 40 meq PO BID [facility] Umeclidinium/Vilanterol (Anoro Ellipta 62.5-25 Mcg Inh) 1 puff IH DAILY [facility] Last Admin: 04/06/20 12:10 Dose: 1 puff Documented by: - Objective Vital Signs: Vital Signs Temperature 98.9 F 04/06/20 08:40 Pulse Rate 76 04/06/20 08:40 Respiratory Rate 18 04/06/20 08:40 Blood Pressure 159/68 04/06/20 08:40 O2 Sat by Pulse Oximetry (%) 97 04/06/20 08:40 Labs: CBC, BMP 04/06/20 06:40 04/06/20 06:40 INR, PTT INR 1.04 (0.83-1.09) 03/31/20 01:45 Problem List - Problems (1) Hematuria Code(s): R31.9 - HEMATURIA, UNSPECIFIED Qualifiers: Hematuria type: gross Qualified Code(s): R31.0 - Gross hematuria (2) Acute [place], inferior wall, initial episode of care Code(s): I21.19 - STEMI INVOLVING OTH CORONARY ARTERY OF INFERIOR WALL (3) Thmlb-lc-qfypsts kidney injury Code(s): N17.9 - ACUTE KIDNEY FAILURE, UNSPECIFIED; N18.9 - CHRONIC KIDNEY DISEASE, UNSPECIFIED Qualifiers: Chronic kidney disease stage: stage 2 (mild) (4) BPH (benign prostatic hyperplasia) Code(s): N40.0 - BENIGN PROSTATIC HYPERPLASIA WITHOUT LOWER URINRY TRACT SYMP (5) CKD (chronic kidney disease) Code(s): N18.9 - CHRONIC KIDNEY DISEASE, UNSPECIFIED (6) Calcaneal spur, right foot Code(s): M77.31 - CALCANEAL SPUR, RIGHT FOOT (7) Cystitis Code(s): N30.90 - CYSTITIS, UNSPECIFIED WITHOUT HEMATURIA (8) Dysuria Code(s): R30.0 - DYSURIA (9) HLD (hyperlipidemia) Code(s): E78.5 - HYPERLIPIDEMIA, UNSPECIFIED Qualifiers: Hyperlipidemia type: pure hypercholesterolemia Qualified Code(s): E78.00 - Pure hypercholesterolemia, unspecified; E78.0 - Pure hypercholesterolemia (10) Hypercholesterolemia Code(s): E78.00 - PURE HYPERCHOLESTEROLEMIA, UNSPECIFIED (11) Hypokalemia Code(s): E87.6 - HYPOKALEMIA (12) Lumbar radiculopathy, chronic Code(s): M54.16 - RADICULOPATHY, LUMBAR REGION (13) NSTEMI (non-ST elevated myocardial infarction) Code(s): I21.4 - NON-ST ELEVATION (NSTEMI) MYOCARDIAL INFARCTION (14) Obesity (BMI 30.0-34.9) Code(s): E66.9 - OBESITY, UNSPECIFIED (15) Presence of drug-eluting stent in right coronary artery Code(s): Z95.5 - PRESENCE OF CORONARY ANGIOPLASTY IMPLANT AND GRAFT (16) S/P TURP Code(s): Z90.79 - ACQUIRED ABSENCE OF OTHER GENITAL ORGAN(S) (17) Shingles (herpes zoster) polyneuropathy Code(s): B02.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 (18) Sleep apnea Code(s): G47.30 - SLEEP APNEA, UNSPECIFIED Qualifiers: Sleep apnea type: obstructive Qualified Code(s): G47.33 - Obstructive sleep apnea (adult) (pediatric) (19) Syncope Code(s): R55 - SYNCOPE AND COLLAPSE (20) UTI (urinary tract infection) Code(s): N39.0 - URINARY TRACT INFECTION, SITE NOT SPECIFIED Qualifiers: Urinary tract infection type: acute cystitis Hematuria presence: with hematuria Qualified Code(s): N30.01 - Acute cystitis with hematuria (21) Urinary retention Code(s): R33.9 - RETENTION OF URINE, UNSPECIFIED
[2020-04-06] MEDS ORDERED: POTASSIUM CHLORIDE ORAL LIQUID 20 MEQ/15 ML PO SCH (12:30)
--- NOTE | 2020-04-06 13:31 | PN ---
Progress Note (short form) - Note Progress Note: Resting in a chair on RA. Dove DC by Urology. No CP or SOB. Used his own PAP device last night. Intake & Output 04/03/20 04/04/20 04/05/20 04/06/20 23:59 23:59 23:59 23:59 Intake Total 26469 57109 9650 1100 Output Total 58903 29141 46980 200 Balance 5070 -5285 -7213 900 Last Vital Signs Temp Pulse Resp BP Pulse Ox 98.9 F 76 18 159/68 97 04/06/20 08:40 04/06/20 08:40 04/06/20 08:40 04/06/20 08:40 04/06/20 08:40 Active Medications Acetaminophen (Tylenol -) 650 mg PO TID [facility] Last Admin: 04/06/20 06:01 Dose: 650 mg Documented by: Albuterol Sulfate (Ventolin Hfa Inhaler -) 2 puff IH RQID [facility] Last Admin: 04/06/20 12:10 Dose: 2 puff Documented by: Amlodipine Besylate (Norvasc -) 10 mg PO DAILY [facility] Last Admin: 04/06/20 09:46 Dose: 10 mg Documented by: Atorvastatin Calcium (Lipitor -) 80 mg PO HS [facility] Last Admin: 04/05/20 21:27 Dose: 80 mg Documented by: Budesonide/Formoterol Fumarate (Symbicort 160/4.5mcg -) 2 puff IH BID [facility] Last Admin: 04/06/20 09:48 Dose: 2 puff Documented by: Carvedilol (Coreg -) 25 mg PO BID [facility] Last Admin: 04/06/20 09:46 Dose: 25 mg Documented by: Docusate Sodium (Colace -) 100 mg PO Q12H PRN PRN Reason: CONSTIPATION Last Admin: 04/04/20 21:02 Dose: 100 mg Documented by: Glipizide (Glucotrol -) 5 mg PO DAILY@0700 [facility] Last Admin: 04/06/20 06:02 Dose: 5 mg Documented by: Hydralazine HCl (Apresoline -) 50 mg PO BID [facility] Last Admin: 04/06/20 09:45 Dose: 50 mg Documented by: Hydromorphone HCl (Dilaudid Vial -) 2 mg IVPB Q4H PRN PRN Reason: PAIN LEVEL 7 - 10 Last Admin: 04/04/20 21:04 Dose: 2 mg Documented by: Meropenem 1 gm/ Dextrose 100 mls @ 200 mls/hr IVPB Q8H-IV [facility] Last Admin: 04/06/20 09:47 Dose: 200 mls/hr Documented by: Potassium Chloride 10 meq/ (Sodium Chloride) 1,005 mls @ 60 mls/hr IVPB Q16H [facility] Last Admin: 04/06/20 02:43 Dose: 60 mls/hr Documented by: Ondansetron HCl (Zofran Injection) 4 mg IVPUSH Q6H PRN PRN Reason: NAUSEA AND/OR VOMITING Potassium Chloride (Potassium Chloride Oral Liquid) 40 meq PO 1230,1830 [facility] Umeclidinium/Vilanterol (Anoro Ellipta 62.5-25 Mcg Inh) 1 puff IH DAILY [facility] Last Admin: 04/06/20 12:10 Dose: 1 puff Documented by: Constitutional: Yes: No Distress, Calm Neck: Yes: Supple Cardiovascular: Yes: Regular Rate and Rhythm Respiratory: Yes: Regular, CTA Bilaterally Gastrointestinal: Yes: Normal Bowel Sounds, Soft Edema: No Labs: Laboratory Results - last 24 hr 04/06/20 04/06/20 06:40 06:40 WBC 8.9 RBC 2.86 L Hgb 8.6 L Hct 25.0 L MCV 87.4 MCH 29.9 MCHC 34.2 RDW 15.4 Plt Count 207 MPV 8.0 Absolute Neuts (auto) 6.1 Neutrophils % 68.6 Lymphocytes % 17.7 Monocytes % 9.2 Eosinophils % 4.2 Basophils % 0.3 Nucleated RBC % 0 Sodium 144 Potassium 3.1 L Chloride 107 Carbon Dioxide 31 Anion Gap 6 L BUN 18.4 H Creatinine 1.1 Est GFR (CKD-EPI)AfAm 75.71 Est GFR (CKD-EPI)NonAf 65.32 Random Glucose 146 H Calcium 7.7 L Problem List - Problems (1) COVID-19 Code(s): U07.1 - COVID POSITIVE (2) BILL (acute kidney injury) Code(s): N17.9 - ACUTE KIDNEY FAILURE, UNSPECIFIED (3) Hematuria Code(s): R31.9 - HEMATURIA, UNSPECIFIED Qualifiers: Hematuria type: gross Qualified Code(s): R31.0 - Gross hematuria (4) Uvklc-pp-wxtlael kidney injury Code(s): N17.9 - ACUTE KIDNEY FAILURE, UNSPECIFIED; N18.9 - CHRONIC KIDNEY DISEASE, UNSPECIFIED Qualifiers: Chronic kidney disease stage: stage 2 (mild) (5) BPH (benign prostatic hyperplasia) Code(s): N40.0 - BENIGN PROSTATIC HYPERPLASIA WITHOUT LOWER URINRY TRACT SYMP (6) COPD (chronic obstructive pulmonary disease) with acute bronchitis Code(s): J44.0 - CHR OBSTRUCTIVE PULMON DISEASE WITH (ACUTE) LOWER RESP INFCT; J20.9 - ACUTE BRONCHITIS, UNSPECIFIED (7) Coronary artery disease Code(s): I25.10 - ATHSCL HEART DISEASE OF [place] CORONARY ARTERY W/O ANG PCTRS Qualifiers: Coronary Disease-Associated Artery/Lesion type: [place] artery [place] vs. transplanted heart: [place] heart Associated angina: without angina Qualified Code(s): I25.10 - Atherosclerotic heart disease of [place] coronary artery without angina pectoris (8) HLD (hyperlipidemia) Code(s): E78.5 - HYPERLIPIDEMIA, UNSPECIFIED Qualifiers: Hyperlipidemia type: pure hypercholesterolemia Qualified Code(s): E78.00 - Pure hypercholesterolemia, unspecified; E78.0 - Pure hypercholesterolemia (9) Hematuria Code(s): R31.9 - HEMATURIA, UNSPECIFIED Qualifiers: Hematuria type: gross Qualified Code(s): R31.0 - Gross hematuria (10) Obesity (BMI 30.0-34.9) Code(s): E66.9 - OBESITY, UNSPECIFIED (11) S/P TURP Code(s): Z90.79 - ACQUIRED ABSENCE OF OTHER GENITAL ORGAN(S) (12) Sleep apnea Code(s): G47.30 - SLEEP APNEA, UNSPECIFIED Qualifiers: Sleep apnea type: obstructive Qualified Code(s): G47.33 - Obstructive sleep apnea (adult) (pediatric) (13) Urinary retention Code(s): R33.9 - RETENTION OF URINE, UNSPECIFIED (14) Pulmonary fibrosis Code(s): J84.10 - PULMONARY FIBROSIS, UNSPECIFIED IMP HEMATURIA/URINARY RETENTION S/P CYSTO/FULGURATION OF BLEEDING EVACUATION OF CLOTS SECONDARY TO PROSTATIC HEMORRHAGE H/O COVID COMPLICATED BY ACUTE RESPIRATORY FAILURE,?PE ASHD S/P STENT' COPD PULMONARY FIBROSIS HTN HLD H/O PE S/P TURP 02/23/20 ACUTE ON CHRONOC KIDNEY DISEASE KENN ON CPAP 7 PLAN O2 NEEDED INHALED BRONCHODILATORS ABX PER ID CHEST CT CAN BE PERFORMED AN OUTPATIENT CPAP @ 7 CM H2O DC PLANNING Dr Ambrosio
[2020-04-06] MEDS: ATORVASTATIN CA 80 MG TABLET (FP) PO SCH (21:21)
[2020-04-06] MEDS ORDERED: ZOLPIDEM TARTRATE 5 MG TABLET PO PRN (22:06)
[2020-04-07] MEDS ORDERED: MEROPENEM 1 GM VIAL (RESTRICTED TO ID) IVPB ONE ×3 (02:56→18:56)
[2020-04-07] MEDS ORDERED: DEXTROSE 5%-WATER 100 ML IVPB ONE ×3 (02:56→18:56)
[2020-04-07] MEDS: MEROPENEM 1 GM in DEXTROSE 5%-WATER 100 ML IVPB SCH ×4 (02:59→19:16)
[2020-04-07] MEDS ORDERED: amLODIPine BESYLATE 10 MG TABLET (FP) PO ONE (05:32)
[2020-04-07] MEDS: glipiZIDE 5 MG TABLET (FP) PO SCH (06:40)
[2020-04-07] MEDS: ACETAMINOPHEN 325 MG TABLET (FP) PO SCH ×3 (06:40→21:20)
[2020-04-07 07:04] LABS: BASO % 0.6 % (0-2.0); EOS % 4.8 % (0-4.5); HEMATOCRIT 25.1 % (35.4-49); HEMOGLOBIN 8.5 GM/dL (11.7-16.9); LYMPH % 19.4 % (8-40); MCH 29.5 pg (25.7-33.7); MCHC 33.8 g/dl (32.0-35.9); MEAN CELL VOLUME 87.5 fl (80-96); MEAN PLT VOLUME 7.9 fl (7.5-11.1); NEUT % 66.2 % (42.8-82.8); PLATELET COUNT 220 K/MM3 (134-434); RBC 2.87 M/mm3 (4.00-5.60); RDW 15.4 % (11.9-15.9)
[2020-04-07 07:23] LABS: BLOOD UREA NITROGEN 14.9 mg/dL (7-18); POTASSIUM 3.1 mmol/L (3.5-5.1)
[2020-04-07 07:24] LABS: CALCIUM 7.8 mg/dL (8.5-10.1)
--- NOTE | 2020-04-07 10:10 | PN ---
Progress Note, Physician History of Present Illness: Hematuria cleared, aguilar d/jose. Loose stools c. diff sent. - Current Medication List Current Medications: Active Medications Acetaminophen (Tylenol -) 650 mg PO TID [facility] Last Admin: 04/07/20 06:40 Dose: 650 mg Documented by: Albuterol Sulfate (Ventolin Hfa Inhaler -) 2 puff IH RQID [facility] Last Admin: 04/06/20 21:28 Dose: 2 puff Documented by: Amlodipine Besylate (Norvasc -) 10 mg PO DAILY [facility] Last Admin: 04/06/20 09:46 Dose: 10 mg Documented by: Atorvastatin Calcium (Lipitor -) 80 mg PO HS [facility] Last Admin: 04/06/20 21:21 Dose: 80 mg Documented by: Budesonide/Formoterol Fumarate (Symbicort 160/4.5mcg -) 2 puff IH BID [facility] Last Admin: 04/06/20 21:28 Dose: 2 puff Documented by: Carvedilol (Coreg -) 25 mg PO BID [facility] Last Admin: 04/06/20 21:21 Dose: 25 mg Documented by: Docusate Sodium (Colace -) 100 mg PO Q12H PRN PRN Reason: CONSTIPATION Last Admin: 04/04/20 21:02 Dose: 100 mg Documented by: Glipizide (Glucotrol -) 5 mg PO DAILY@0700 [facility] Last Admin: 04/07/20 06:40 Dose: 5 mg Documented by: Hydralazine HCl (Apresoline -) 50 mg PO BID [facility] Last Admin: 04/06/20 21:21 Dose: 50 mg Documented by: Hydromorphone HCl (Dilaudid Vial -) 2 mg IVPB Q4H PRN PRN Reason: PAIN LEVEL 7 - 10 Last Admin: 04/04/20 21:04 Dose: 2 mg Documented by: Meropenem 1 gm/ Dextrose 100 mls @ 200 mls/hr IVPB Q8H-IV [facility] Last Admin: 04/07/20 02:59 Dose: 200 mls/hr Documented by: Ondansetron HCl (Zofran Injection) 4 mg IVPUSH Q6H PRN PRN Reason: NAUSEA AND/OR VOMITING Potassium Chloride (Potassium Chloride Oral Liquid) 40 meq PO 1230,1830 [facility] Last Admin: 04/06/20 18:04 Dose: 40 meq Documented by: Umeclidinium/Vilanterol (Anoro Ellipta 62.5-25 Mcg Inh) 1 puff IH DAILY [facility] Last Admin: 04/06/20 12:10 Dose: 1 puff Documented by: Zolpidem Tartrate (Ambien -) 5 mg PO HS PRN PRN Reason: INSOMNIA Last Admin: 04/06/20 23:07 Dose: 5 mg Documented by: - Objective Vital Signs: Vital Signs Temperature 97.8 F 04/07/20 05:54 Pulse Rate 74 04/07/20 06:44 Respiratory Rate 18 04/07/20 06:44 Blood Pressure 162/89 04/07/20 06:44 O2 Sat by Pulse Oximetry (%) 97 04/07/20 06:44 Constitutional: Yes: No Distress, Calm Neck: Yes: Supple Cardiovascular: Yes: Regular Rate and Rhythm Respiratory: Yes: Regular, CTA Bilaterally Gastrointestinal: Yes: Normal Bowel Sounds, Soft Edema: No Labs: CBC, BMP 04/07/20 05:58 04/07/20 05:58 INR, PTT INR 1.04 (0.83-1.09) 03/31/20 01:45 Problem List - Problems (1) Hematuria Code(s): R31.9 - HEMATURIA, UNSPECIFIED Qualifiers: Hematuria type: gross Qualified Code(s): R31.0 - Gross hematuria (2) Ypowz-zr-enokfim kidney injury Code(s): N17.9 - ACUTE KIDNEY FAILURE, UNSPECIFIED; N18.9 - CHRONIC KIDNEY DISEASE, UNSPECIFIED Qualifiers: Chronic kidney disease stage: stage 2 (mild) (3) Coronary artery disease Code(s): I25.10 - ATHSCL HEART DISEASE OF [place] CORONARY ARTERY W/O ANG PCTRS Qualifiers: Coronary Disease-Associated Artery/Lesion type: [place] artery [place] vs. transplanted heart: [place] heart Associated angina: without angina Qualified Code(s): I25.10 - Atherosclerotic heart disease of [place] coronary artery without angina pectoris (4) [place] catheter problem Code(s): T83.9XXA - UNSP COMPLICATION OF GENITOURINARY PROSTH DEV/GRFT, INIT Qualifiers: Encounter type: initial encounter Qualified Code(s): T83.9XXA - Unspecified complication of genitourinary prosthetic device, implant and graft, initial encounter (5) HLD (hyperlipidemia) Code(s): E78.5 - HYPERLIPIDEMIA, UNSPECIFIED Qualifiers: Hyperlipidemia type: pure hypercholesterolemia Qualified Code(s): E78.00 - Pure hypercholesterolemia, unspecified; E78.0 - Pure hypercholesterolemia (6) Hypertensive heart disease Code(s): I11.9 - HYPERTENSIVE HEART DISEASE WITHOUT HEART FAILURE Qualifiers: Heart failure presence: without heart failure Qualified Code(s): I11.9 - Hypertensive heart disease without heart failure (7) Presence of drug-eluting stent in right coronary artery Code(s): Z95.5 - PRESENCE OF CORONARY ANGIOPLASTY IMPLANT AND GRAFT (8) S/P TURP Code(s): Z90.79 - ACQUIRED ABSENCE OF OTHER GENITAL ORGAN(S) (9) Sleep apnea Code(s): G47.30 - SLEEP APNEA, UNSPECIFIED Qualifiers: Sleep apnea type: obstructive Qualified Code(s): G47.33 - Obstructive sleep apnea (adult) (pediatric) (10) UTI (urinary tract infection) Code(s): N39.0 - URINARY TRACT INFECTION, SITE NOT SPECIFIED Qualifiers: Urinary tract infection type: acute cystitis Hematuria presence: with hematuria Qualified Code(s): N30.01 - Acute cystitis with hematuria (11) Urinary retention Code(s): R33.9 - RETENTION OF URINE, UNSPECIFIED Assessment/Plan 05/20/2018 Nuc stress: Mod inferior ischemia with small infarct, LVEF 52% 05/20/2018 Echo: Normal LV size with mod cLVH, LVEF 55-60%, mild LAE, mod MR, tr TR 05/21/2018 [facility] performed at [facility] for [place]/NSTEMI and moderate inferior ischemia. 2 vessel CAD 90-95% ostial LCx-OM (medium sized vessel) left alone, 90-95% prox RCA which was treated with implant Resolute [place] 4.0x18 mm FISH post- dilated with NC 4.5x15 balloon @ 14 SARAHY, normal LV fxn LVEF 65-70% with elevated LVEDP 27 mmHg, no aortic stenosis. Mynx deployed right [employer] access site, no complications. Recommend optimal medical therapy for secondary prevention of cardiovascular disease, consider PCI of LCx-OM if remains symptomatic despite meds, patient is candidate for cardiac rehab. 1. Recurrent hematuria since cleared, clots and urinary retention s/p cystoscopy, fulguration of bleeding, evacuation of clots 2. R/o recurrent Sepsis source post TURP s/p cysto/evac clots/fulguration bleeding vessels 3. COPD, pulm fibrosis 4. CAD s/p FISH RCA 5. Diastolic dysfunction 6. Type 2 DM 7. Acute on CKD (obstructive) with proteinuria resolving 8. OSAS on cpap @ 7 cm H2O 9. Hypertensive heart disease 10. Hyperlipidemia 11 H/o PE 12. COVID PCR -, antibody + 13. Acute blood loss anemia post transfusion PLAN: 1. Hold ASA and Plavix until hematuria resolves (FISH placed 2017) then restart Plavix alone given recurrent hematuria, monitor Hgb post transfusion 2. Continue Lipitor 80 qd 3. Continue Carvedilol 25 bid 4. Resume Cozaar 50 qd given renal recovery, replete K, wean hydralazine 25 bid 5. Continue Norvasc 10 qd 6. Empiric antibiotic course as per ID team 7. BD, O2 as needed, cpap @ 7 cm H2O nightly
[2020-04-07] MEDS: ALBUTEROL SO4 HFA INHALER IH SCH ×4 (10:56→21:18)
--- NOTE | 2020-04-07 11:02 | PN ---
Progress Note, Physician History of Present Illness: stable no new issues no hematuria - Current Medication List Current Medications: Active Medications Acetaminophen (Tylenol -) 650 mg PO TID [facility] Last Admin: 04/07/20 06:40 Dose: 650 mg Documented by: Albuterol Sulfate (Ventolin Hfa Inhaler -) 2 puff IH RQID [facility] Last Admin: 04/06/20 21:28 Dose: 2 puff Documented by: Amlodipine Besylate (Norvasc -) 10 mg PO DAILY [facility] Last Admin: 04/06/20 09:46 Dose: 10 mg Documented by: Atorvastatin Calcium (Lipitor -) 80 mg PO HS [facility] Last Admin: 04/06/20 21:21 Dose: 80 mg Documented by: Budesonide/Formoterol Fumarate (Symbicort 160/4.5mcg -) 2 puff IH BID [facility] Last Admin: 04/06/20 21:28 Dose: 2 puff Documented by: Carvedilol (Coreg -) 25 mg PO BID [facility] Last Admin: 04/06/20 21:21 Dose: 25 mg Documented by: Docusate Sodium (Colace -) 100 mg PO Q12H PRN PRN Reason: CONSTIPATION Last Admin: 04/04/20 21:02 Dose: 100 mg Documented by: Glipizide (Glucotrol -) 5 mg PO DAILY@0700 [facility] Last Admin: 04/07/20 06:40 Dose: 5 mg Documented by: Hydralazine HCl (Apresoline -) 50 mg PO BID [facility] Last Admin: 04/06/20 21:21 Dose: 50 mg Documented by: Hydromorphone HCl (Dilaudid Vial -) 2 mg IVPB Q4H PRN PRN Reason: PAIN LEVEL 7 - 10 Last Admin: 04/04/20 21:04 Dose: 2 mg Documented by: Meropenem 1 gm/ Dextrose 100 mls @ 200 mls/hr IVPB Q8H-IV [facility] Last Admin: 04/07/20 02:59 Dose: 200 mls/hr Documented by: Ondansetron HCl (Zofran Injection) 4 mg IVPUSH Q6H PRN PRN Reason: NAUSEA AND/OR VOMITING Potassium Chloride (Potassium Chloride Oral Liquid) 40 meq PO 1230,1830 [facility] Last Admin: 04/06/20 18:04 Dose: 40 meq Documented by: Umeclidinium/Vilanterol (Anoro Ellipta 62.5-25 Mcg Inh) 1 puff IH DAILY [facility] Last Admin: 04/06/20 12:10 Dose: 1 puff Documented by: Zolpidem Tartrate (Ambien -) 5 mg PO HS PRN PRN Reason: INSOMNIA Last Admin: 04/06/20 23:07 Dose: 5 mg Documented by: - Objective Vital Signs: Vital Signs Temperature 97.8 F 04/07/20 05:54 Pulse Rate 74 04/07/20 06:44 Respiratory Rate 18 04/07/20 06:44 Blood Pressure 162/89 04/07/20 06:44 O2 Sat by Pulse Oximetry (%) 97 04/07/20 06:44 Constitutional: Yes: No Distress, Calm Cardiovascular: Yes: S1, S2 Respiratory: Yes: Regular, CTA Bilaterally Gastrointestinal: Yes: Normal Bowel Sounds, Soft Musculoskeletal: Yes: WNL Extremities: Yes: WNL Neurological: Yes: Alert, Oriented Psychiatric: Yes: Alert, Oriented Labs: CBC, BMP 04/07/20 05:58 04/07/20 05:58 INR, PTT INR 1.04 (0.83-1.09) 03/31/20 01:45 Assessment/Plan Problem List - Problems (1) Hematuria Code(s): R31.9 - HEMATURIA, UNSPECIFIED Qualifiers: Hematuria type: gross Qualified Code(s): R31.0 - Gross hematuria (2) Acute NC, inferior wall, initial episode of care Code(s): I21.19 - STEMI INVOLVING OTH CORONARY ARTERY OF INFERIOR WALL (3) Vrgji-zy-oadeoxc kidney injury Code(s): N17.9 - ACUTE KIDNEY FAILURE, UNSPECIFIED; N18.9 - CHRONIC KIDNEY DISEASE, UNSPECIFIED Qualifiers: Chronic kidney disease stage: stage 2 (mild) (4) BPH (benign prostatic hyperplasia) Code(s): N40.0 - BENIGN PROSTATIC HYPERPLASIA WITHOUT LOWER URINRY TRACT SYMP (5) CKD (chronic kidney disease) Code(s): N18.9 - CHRONIC KIDNEY DISEASE, UNSPECIFIED (6) Calcaneal spur, right foot Code(s): M77.31 - CALCANEAL SPUR, RIGHT FOOT (7) Cystitis Code(s): N30.90 - CYSTITIS, UNSPECIFIED WITHOUT HEMATURIA (8) Dysuria Code(s): R30.0 - DYSURIA (9) HLD (hyperlipidemia) Code(s): E78.5 - HYPERLIPIDEMIA, UNSPECIFIED Qualifiers: Hyperlipidemia type: pure hypercholesterolemia Qualified Code(s): E78.00 - Pure hypercholesterolemia, unspecified; E78.0 - Pure hypercholesterolemia (10) Hypercholesterolemia Code(s): E78.00 - PURE HYPERCHOLESTEROLEMIA, UNSPECIFIED (11) Hypokalemia Code(s): E87.6 - HYPOKALEMIA (12) Lumbar radiculopathy, chronic Code(s): M54.16 - RADICULOPATHY, LUMBAR REGION (13) NSTEMI (non-ST elevated myocardial infarction) Code(s): I21.4 - NON-ST ELEVATION (NSTEMI) MYOCARDIAL INFARCTION (14) Obesity (BMI 30.0-34.9) Code(s): E66.9 - OBESITY, UNSPECIFIED (15) Presence of drug-eluting stent in right coronary artery Code(s): Z95.5 - PRESENCE OF CORONARY ANGIOPLASTY IMPLANT AND GRAFT (16) S/P TURP Code(s): Z90.79 - ACQUIRED ABSENCE OF OTHER GENITAL ORGAN(S) (17) Shingles (herpes zoster) polyneuropathy Code(s): B02.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 (18) Sleep apnea Code(s): G47.30 - SLEEP APNEA, UNSPECIFIED Qualifiers: Sleep apnea type: obstructive Qualified Code(s): G47.33 - Obstructive sleep apnea (adult) (pediatric) (19) Syncope Code(s): R55 - SYNCOPE AND COLLAPSE (20) UTI (urinary tract infection) Code(s): N39.0 - URINARY TRACT INFECTION, SITE NOT SPECIFIED Qualifiers: Urinary tract infection type: acute cystitis Hematuria presence: with hematuria Qualified Code(s): N30.01 - Acute cystitis with hematuria (21) Urinary retention Code(s): R33.9 - RETENTION OF URINE, UNSPECIFIED plan abx rest as per urology monitor hematuria rest as per the team will change to oral abx tomorrow
[2020-04-07] MEDS ORDERED: PT OWN MED DRAWER 7, Y5N ONE (11:03)
[2020-04-07] MEDS ORDERED: MAGNESIUM 1GM/D5W - 1 GM/100 ML IVPB IVPB ONE (11:06)
[2020-04-07] MEDS: CARVEDILOL 25 MG TABLET (FP) PO SCH ×2 (11:08→21:19)
[2020-04-07] MEDS: UMECLIDINIUM/VILANTEROL (ANORO) 62.5/25 MCG INHALER IH SCH (11:09)
[2020-04-07] MEDS: amLODIPine BESYLATE 10 MG TABLET (FP) PO SCH (11:09)
[2020-04-07] MEDS: hydrALAZINE HCL 50 MG TABLET (FP) PO SCH ×2 (11:09→21:20)
[2020-04-07] MEDS: BUDESONIDE/FORMETEROL FUMARATE 160/4.5 mcg INHALER IH SCH ×2 (11:10→21:18)
[2020-04-07] MEDS ORDERED: POTASSIUM CHLORIDE ORAL LIQUID 20 MEQ/15 ML PO SCH (11:15)
--- NOTE | 2020-04-07 11:19 | PN ---
Progress Note, Physician History of Present Illness: Pt had 4to5 looose stools Pt is off aguilar No Fever No SOB No chest pain No abd pain Off No GI bleeding stool for c.diff Mg level /1G IV MG Hypokalemia Kcl 40 PO BID BP high due to to IV fluids DC IV fluids as there is no hematuria - Current Medication List Current Medications: Active Medications Acetaminophen (Tylenol -) 650 mg PO TID [facility] Last Admin: 04/07/20 06:40 Dose: 650 mg Documented by: Albuterol Sulfate (Ventolin Hfa Inhaler -) 2 puff IH RQID [facility] Last Admin: 04/07/20 10:56 Dose: Not Given Documented by: Amlodipine Besylate (Norvasc -) 10 mg PO DAILY [facility] Last Admin: 04/07/20 11:09 Dose: 10 mg Documented by: Atorvastatin Calcium (Lipitor -) 80 mg PO HS [facility] Last Admin: 04/06/20 21:21 Dose: 80 mg Documented by: Budesonide/Formoterol Fumarate (Symbicort 160/4.5mcg -) 2 puff IH BID [facility] Last Admin: 04/06/20 21:28 Dose: 2 puff Documented by: Carvedilol (Coreg -) 25 mg PO BID [facility] Last Admin: 04/07/20 11:08 Dose: 25 mg Documented by: Docusate Sodium (Colace -) 100 mg PO Q12H PRN PRN Reason: CONSTIPATION Last Admin: 04/04/20 21:02 Dose: 100 mg Documented by: Glipizide (Glucotrol -) 5 mg PO DAILY@0700 [facility] Last Admin: 04/07/20 06:40 Dose: 5 mg Documented by: Hydralazine HCl (Apresoline -) 50 mg PO BID [facility] Last Admin: 04/07/20 11:09 Dose: 50 mg Documented by: Hydromorphone HCl (Dilaudid Vial -) 2 mg IVPB Q4H PRN PRN Reason: PAIN LEVEL 7 - 10 Last Admin: 04/04/20 21:04 Dose: 2 mg Documented by: Meropenem 1 gm/ Dextrose 100 mls @ 200 mls/hr IVPB Q8H-IV [facility] Last Admin: 04/07/20 11:08 Dose: 200 mls/hr Documented by: Magnesium Sulfate/Dextrose (Magnesium 1gm/D5w -) 1 gm in 100 mls @ 100 mls/hr IVPB ONCE ONE Stop: 04/07/20 12:05 Ondansetron HCl (Zofran Injection) 4 mg IVPUSH Q6H PRN PRN Reason: NAUSEA AND/OR VOMITING Potassium Chloride (Potassium Chloride Oral Liquid) 40 meq PO 1230,1830 [facility] Last Admin: 04/06/20 18:04 Dose: 40 meq Documented by: Potassium Chloride (Potassium Chloride Oral Liquid) 40 meq PO BID [facility] Umeclidinium/Vilanterol (Anoro Ellipta 62.5-25 Mcg Inh) 1 puff IH DAILY [facility] Last Admin: 04/07/20 11:09 Dose: 1 puff Documented by: Zolpidem Tartrate (Ambien -) 5 mg PO HS PRN PRN Reason: INSOMNIA Last Admin: 04/06/20 23:07 Dose: 5 mg Documented by: - Objective Vital Signs: Vital Signs Temperature 97.8 F 04/07/20 05:54 Pulse Rate 74 04/07/20 06:44 Respiratory Rate 18 04/07/20 06:44 Blood Pressure 162/89 04/07/20 06:44 O2 Sat by Pulse Oximetry (%) 97 04/07/20 06:44 Labs: CBC, BMP 04/07/20 05:58 04/07/20 05:58 INR, PTT INR 1.04 (0.83-1.09) 03/31/20 01:45 Problem List - Problems (1) Hematuria Code(s): R31.9 - HEMATURIA, UNSPECIFIED Qualifiers: Hematuria type: gross Qualified Code(s): R31.0 - Gross hematuria (2) Acute [place], inferior wall, initial episode of care Code(s): I21.19 - STEMI INVOLVING OTH CORONARY ARTERY OF INFERIOR WALL (3) Hmfuh-uk-oewwmsw kidney injury Code(s): N17.9 - ACUTE KIDNEY FAILURE, UNSPECIFIED; N18.9 - CHRONIC KIDNEY DISEASE, UNSPECIFIED Qualifiers: Chronic kidney disease stage: stage 2 (mild) (4) BPH (benign prostatic hyperplasia) Code(s): N40.0 - BENIGN PROSTATIC HYPERPLASIA WITHOUT LOWER URINRY TRACT SYMP (5) CKD (chronic kidney disease) Code(s): N18.9 - CHRONIC KIDNEY DISEASE, UNSPECIFIED (6) Calcaneal spur, right foot Code(s): M77.31 - CALCANEAL SPUR, RIGHT FOOT (7) Cystitis Code(s): N30.90 - CYSTITIS, UNSPECIFIED WITHOUT HEMATURIA (8) Dysuria Code(s): R30.0 - DYSURIA (9) HLD (hyperlipidemia) Code(s): E78.5 - HYPERLIPIDEMIA, UNSPECIFIED Qualifiers: Hyperlipidemia type: pure hypercholesterolemia Qualified Code(s): E78.00 - Pure hypercholesterolemia, unspecified; E78.0 - Pure hypercholesterolemia (10) Hypercholesterolemia Code(s): E78.00 - PURE HYPERCHOLESTEROLEMIA, UNSPECIFIED (11) Hypokalemia Code(s): E87.6 - HYPOKALEMIA (12) Lumbar radiculopathy, chronic Code(s): M54.16 - RADICULOPATHY, LUMBAR REGION (13) NSTEMI (non-ST elevated myocardial infarction) Code(s): I21.4 - NON-ST ELEVATION (NSTEMI) MYOCARDIAL INFARCTION (14) Obesity (BMI 30.0-34.9) Code(s): E66.9 - OBESITY, UNSPECIFIED (15) Presence of drug-eluting stent in right coronary artery Code(s): Z95.5 - PRESENCE OF CORONARY ANGIOPLASTY IMPLANT AND GRAFT (16) S/P TURP Code(s): Z90.79 - ACQUIRED ABSENCE OF OTHER GENITAL ORGAN(S) (17) Shingles (herpes zoster) polyneuropathy Code(s): B02.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 (18) Sleep apnea Code(s): G47.30 - SLEEP APNEA, UNSPECIFIED Qualifiers: Sleep apnea type: obstructive Qualified Code(s): G47.33 - Obstructive sleep apnea (adult) (pediatric) (19) Syncope Code(s): R55 - SYNCOPE AND COLLAPSE (20) UTI (urinary tract infection) Code(s): N39.0 - URINARY TRACT INFECTION, SITE NOT SPECIFIED Qualifiers: Urinary tract infection type: acute cystitis Hematuria presence: with hematuria Qualified Code(s): N30.01 - Acute cystitis with hematuria (21) Urinary retention Code(s): R33.9 - RETENTION OF URINE, UNSPECIFIED
--- NOTE | 2020-04-07 14:31 | PN ---
AMANDA Gamino Note Chief Complaint: pt w/o c/o, voiding well w/o hematuria History of Present Illness: POD # 6 s/p cysto fulg - Objective Vital Signs: Vital Signs Temperature 98.3 F 04/07/20 14:00 Pulse Rate 71 04/07/20 14:00 Respiratory Rate 18 04/07/20 11:24 Blood Pressure 148/71 04/07/20 14:00 O2 Sat by Pulse Oximetry (%) 98 04/07/20 11:24 Labs/Additional Data: CBC, BMP 04/07/20 05:58 04/07/20 05:58 INR, PTT INR 1.04 (0.83-1.09) 03/31/20 01:45 Blood Type Blood Type A POSITIVE 03/31/20 11:55 Antibody Screen Negative 03/31/20 11:55 Problem List - Problems (1) Hematuria Assessment/Plan: f/u in my office in ~ 2 weeks after disch Code(s): R31.9 - HEMATURIA, UNSPECIFIED Qualifiers: Hematuria type: gross Qualified Code(s): R31.0 - Gross hematuria (2) Cystitis Code(s): N30.90 - CYSTITIS, UNSPECIFIED WITHOUT HEMATURIA
[2020-04-07] MEDS: LOSARTAN POTASSIUM 50 MG TABLET (FP) PO SCH (14:40)
[2020-04-07] MEDS: POTASSIUM CHLORIDE ORAL LIQUID 20 MEQ/15 ML PO SCH ×2 (14:44→19:17)
--- NOTE | 2020-04-07 15:17 | PN ---
Progress Note (short form) - Note Progress Note: Resting in a chair on RA. No CP or SOB. Used his own PAP device last night. Intake & Output 04/04/20 04/05/20 04/06/20 04/07/20 23:59 23:59 23:59 23:59 Intake Total 40313 9650 2073 640 Output Total 18639 97474 1650 Balance -3740 -3300 423 640 Last Vital Signs Temp Pulse Resp BP Pulse Ox 98.3 F 71 18 148/71 98 04/07/20 14:00 04/07/20 14:00 04/07/20 11:24 04/07/20 14:00 04/07/20 11:24 Active Medications Acetaminophen (Tylenol -) 650 mg PO TID [facility] Last Admin: 04/07/20 14:52 Dose: Not Given Documented by: Albuterol Sulfate (Ventolin Hfa Inhaler -) 2 puff IH RQID [facility] Last Admin: 04/07/20 14:41 Dose: 2 puff Documented by: Amlodipine Besylate (Norvasc -) 10 mg PO DAILY [facility] Last Admin: 04/07/20 11:09 Dose: 10 mg Documented by: Atorvastatin Calcium (Lipitor -) 80 mg PO HS [facility] Last Admin: 04/06/20 21:21 Dose: 80 mg Documented by: Budesonide/Formoterol Fumarate (Symbicort 160/4.5mcg -) 2 puff IH BID [facility] Last Admin: 04/07/20 11:10 Dose: 2 puff Documented by: Carvedilol (Coreg -) 25 mg PO BID [facility] Last Admin: 04/07/20 11:08 Dose: 25 mg Documented by: Docusate Sodium (Colace -) 100 mg PO Q12H PRN PRN Reason: CONSTIPATION Last Admin: 04/04/20 21:02 Dose: 100 mg Documented by: Glipizide (Glucotrol -) 5 mg PO DAILY@0700 [facility] Last Admin: 04/07/20 06:40 Dose: 5 mg Documented by: Hydralazine HCl (Apresoline -) 25 mg PO BID [facility] Meropenem 1 gm/ Dextrose 100 mls @ 200 mls/hr IVPB Q8H-IV [facility] Last Admin: 04/07/20 11:08 Dose: 200 mls/hr Documented by: Losartan Potassium (Cozaar -) 50 mg PO DAILY [facility] Last Admin: 04/07/20 14:40 Dose: 50 mg Documented by: Ondansetron HCl (Zofran Injection) 4 mg IVPUSH Q6H PRN PRN Reason: NAUSEA AND/OR VOMITING Potassium Chloride (Potassium Chloride Oral Liquid) 40 meq PO 1230,1830 [facility] Last Admin: 04/07/20 14:44 Dose: 40 meq Documented by: Potassium Chloride (Potassium Chloride Oral Liquid) 40 meq PO BID [facility] Last Admin: 04/07/20 11:27 Dose: Not Given Documented by: Umeclidinium/Vilanterol (Anoro Ellipta 62.5-25 Mcg Inh) 1 puff IH DAILY [facility] Last Admin: 04/07/20 11:09 Dose: 1 puff Documented by: Zolpidem Tartrate (Ambien -) 5 mg PO HS PRN PRN Reason: INSOMNIA Last Admin: 04/06/20 23:07 Dose: 5 mg Documented by: Constitutional: Yes: No Distress, Calm Neck: Yes: Supple Cardiovascular: Yes: Regular Rate and Rhythm Respiratory: Yes: Regular, CTA Bilaterally Gastrointestinal: Yes: Normal Bowel Sounds, Soft Edema: No Labs: Laboratory Results - last 24 hr 04/07/20 04/07/20 04/07/20 05:56 05:58 05:58 WBC 8.0 RBC 2.87 L Hgb 8.5 L Hct 25.1 L MCV 87.5 MCH 29.5 MCHC 33.8 RDW 15.4 Plt Count 220 MPV 7.9 Absolute Neuts (auto) 5.3 Neutrophils % 66.2 Lymphocytes % 19.4 Monocytes % 9.0 Eosinophils % 4.8 H Basophils % 0.6 Nucleated RBC % 0 Sodium 143 Potassium 3.1 L Chloride 109 H Carbon Dioxide 30 Anion Gap 5 L BUN 14.9 Creatinine 1.0 Est GFR (CKD-EPI)AfAm 84.95 Est GFR (CKD-EPI)NonAf 73.30 POC Glucometer 125 Random Glucose 121 H Calcium 7.8 L Magnesium 04/07/20 11:50 WBC RBC Hgb Hct MCV MCH MCHC RDW Plt Count MPV Absolute Neuts (auto) Neutrophils % Lymphocytes % Monocytes % Eosinophils % Basophils % Nucleated RBC % Sodium Potassium Chloride Carbon Dioxide Anion Gap BUN Creatinine Est GFR (CKD-EPI)AfAm Est GFR (CKD-EPI)NonAf POC Glucometer Random Glucose Calcium Magnesium 2.0 Problem List - Problems (1) COVID-19 Code(s): U07.1 - COVID POSITIVE (2) BILL (acute kidney injury) Code(s): N17.9 - ACUTE KIDNEY FAILURE, UNSPECIFIED (3) Hematuria Code(s): R31.9 - HEMATURIA, UNSPECIFIED Qualifiers: Hematuria type: gross Qualified Code(s): R31.0 - Gross hematuria (4) Zrvhs-yf-vbttfob kidney injury Code(s): N17.9 - ACUTE KIDNEY FAILURE, UNSPECIFIED; N18.9 - CHRONIC KIDNEY DISEASE, UNSPECIFIED Qualifiers: Chronic kidney disease stage: stage 2 (mild) (5) BPH (benign prostatic hyperplasia) Code(s): N40.0 - BENIGN PROSTATIC HYPERPLASIA WITHOUT LOWER URINRY TRACT SYMP (6) COPD (chronic obstructive pulmonary disease) with acute bronchitis Code(s): J44.0 - CHR OBSTRUCTIVE PULMON DISEASE WITH (ACUTE) LOWER RESP INFCT; J20.9 - ACUTE BRONCHITIS, UNSPECIFIED (7) Coronary artery disease Code(s): I25.10 - ATHSCL HEART DISEASE OF [place] CORONARY ARTERY W/O ANG PCTRS Qualifiers: Coronary Disease-Associated Artery/Lesion type: [place] artery [place] vs. transplanted heart: [place] heart Associated angina: without angina Qualified Code(s): I25.10 - Atherosclerotic heart disease of [place] coronary artery without angina pectoris (8) HLD (hyperlipidemia) Code(s): E78.5 - HYPERLIPIDEMIA, UNSPECIFIED Qualifiers: Hyperlipidemia type: pure hypercholesterolemia Qualified Code(s): E78.00 - Pure hypercholesterolemia, unspecified; E78.0 - Pure hypercholesterolemia (9) Hematuria Code(s): R31.9 - HEMATURIA, UNSPECIFIED Qualifiers: Hematuria type: gross Qualified Code(s): R31.0 - Gross hematuria (10) Obesity (BMI 30.0-34.9) Code(s): E66.9 - OBESITY, UNSPECIFIED (11) S/P TURP Code(s): Z90.79 - ACQUIRED ABSENCE OF OTHER GENITAL ORGAN(S) (12) Sleep apnea Code(s): G47.30 - SLEEP APNEA, UNSPECIFIED Qualifiers: Sleep apnea type: obstructive Qualified Code(s): G47.33 - Obstructive sleep apnea (adult) (pediatric) (13) Urinary retention Code(s): R33.9 - RETENTION OF URINE, UNSPECIFIED (14) Pulmonary fibrosis Code(s): J84.10 - PULMONARY FIBROSIS, UNSPECIFIED IMP HEMATURIA/URINARY RETENTION S/P CYSTO/FULGURATION OF BLEEDING EVACUATION OF CLOTS SECONDARY TO PROSTATIC HEMORRHAGE H/O COVID COMPLICATED BY ACUTE RESPIRATORY FAILURE,?PE ASHD S/P STENT' COPD PULMONARY FIBROSIS HTN HLD H/O PE S/P TURP 02/23/20 ACUTE ON CHRONOC KIDNEY DISEASE KENN ON CPAP 7 PLAN O2 NEEDED INHALED BRONCHODILATORS ABX PER ID CHEST CT CAN BE PERFORMED AN OUTPATIENT CPAP @ 7 CM H2O DC PLANNING Dr Ambrosio
[2020-04-07] MEDS: ATORVASTATIN CA 80 MG TABLET (FP) PO SCH (21:19)
[2020-04-07] MEDS: POTASSIUM CHLORIDE TABS 10 MEQ TABLET.ER (FP) PO SCH (21:19)
[2020-04-07] MEDS: VANCOMYCIN 250 MG/5 ML ORAL SOLUTION PO SCH (21:19)
[2020-04-07] MEDS ORDERED: metroNIDAZOLE 250 MG TABLET PO SCH (22:00)
[2020-04-08] MEDS ORDERED: MEROPENEM 1 GM VIAL (RESTRICTED TO ID) IVPB ONE ×2 (01:44→08:59)
[2020-04-08] MEDS ORDERED: DEXTROSE 5%-WATER 100 ML IVPB ONE ×2 (01:45→08:59)
[2020-04-08] MEDS: MEROPENEM 1 GM in DEXTROSE 5%-WATER 100 ML IVPB SCH ×2 (01:47→09:08)
[2020-04-08] MEDS: VANCOMYCIN 250 MG/5 ML ORAL SOLUTION PO SCH ×2 (06:35→14:28)
[2020-04-08] MEDS: glipiZIDE 5 MG TABLET (FP) PO SCH (06:35)
[2020-04-08] MEDS: ACETAMINOPHEN 325 MG TABLET (FP) PO SCH ×2 (06:35→14:27)
[2020-04-08 06:54] LABS: BASO % 0.5 % (0-2.0); EOS % 3.7 % (0-4.5); HEMATOCRIT 25.3 % (35.4-49); HEMOGLOBIN 8.7 GM/dL (11.7-16.9); LYMPH % 21.1 % (8-40); MCH 29.8 pg (25.7-33.7); MCHC 34.3 g/dl (32.0-35.9); MEAN PLT VOLUME 7.6 fl (7.5-11.1); MONO % 11.3 % (3.8-10.2); NEUT % 63.4 % (42.8-82.8); PLATELET COUNT 236 K/MM3 (134-434); RBC 2.91 M/mm3 (4.00-5.60); RDW 15.5 % (11.9-15.9); WHITE BLOOD COUNT 7.3 K/mm3 (4.0-10.0)
[2020-04-08 07:27] LABS: BLOOD UREA NITROGEN 14.6 mg/dL (7-18); CREATININE 0.9 mg/dL (0.55-1.3)
[2020-04-08 07:28] LABS: CALCIUM 8.1 mg/dL (8.5-10.1)
[2020-04-08] MEDS: UMECLIDINIUM/VILANTEROL (ANORO) 62.5/25 MCG INHALER IH SCH (09:06)
[2020-04-08] MEDS: ALBUTEROL SO4 HFA INHALER IH SCH ×2 (09:06→12:47)
[2020-04-08] MEDS: BUDESONIDE/FORMETEROL FUMARATE 160/4.5 mcg INHALER IH SCH (09:06)
[2020-04-08] MEDS: CARVEDILOL 25 MG TABLET (FP) PO SCH (09:07)
[2020-04-08] MEDS: POTASSIUM CHLORIDE TABS 10 MEQ TABLET.ER (FP) PO SCH (09:07)
[2020-04-08] MEDS: hydrALAZINE HCL 50 MG TABLET (FP) PO SCH (09:07)
[2020-04-08] MEDS: LOSARTAN POTASSIUM 50 MG TABLET (FP) PO SCH (09:07)
[2020-04-08] MEDS: amLODIPine BESYLATE 10 MG TABLET (FP) PO SCH (09:08)
--- NOTE | 2020-04-08 09:40 | PN ---
Progress Note, Physician History of Present Illness: Hematuria cleared, aguilar d/jose. Loose stools c. diff Ag + placed on oral vanco. - Current Medication List Current Medications: Active Medications Acetaminophen (Tylenol -) 650 mg PO TID [facility] Last Admin: 04/08/20 06:35 Dose: 650 mg Documented by: Albuterol Sulfate (Ventolin Hfa Inhaler -) 2 puff IH RQID [facility] Last Admin: 04/08/20 09:06 Dose: 2 puff Documented by: Amlodipine Besylate (Norvasc -) 10 mg PO DAILY [facility] Last Admin: 04/08/20 09:08 Dose: 10 mg Documented by: Atorvastatin Calcium (Lipitor -) 80 mg PO HS [facility] Last Admin: 04/07/20 21:19 Dose: 80 mg Documented by: Budesonide/Formoterol Fumarate (Symbicort 160/4.5mcg -) 2 puff IH BID [facility] Last Admin: 04/08/20 09:06 Dose: 2 puff Documented by: Carvedilol (Coreg -) 25 mg PO BID [facility] Last Admin: 04/08/20 09:07 Dose: 25 mg Documented by: Docusate Sodium (Colace -) 100 mg PO Q12H PRN PRN Reason: CONSTIPATION Last Admin: 04/04/20 21:02 Dose: 100 mg Documented by: Glipizide (Glucotrol -) 5 mg PO DAILY@0700 [facility] Last Admin: 04/08/20 06:35 Dose: 5 mg Documented by: Hydralazine HCl (Apresoline -) 25 mg PO BID [facility] Last Admin: 04/08/20 09:07 Dose: 25 mg Documented by: Meropenem 1 gm/ Dextrose 100 mls @ 200 mls/hr IVPB Q8H-IV [facility] Last Admin: 04/08/20 09:08 Dose: 200 mls/hr Documented by: Losartan Potassium (Cozaar -) 50 mg PO DAILY [facility] Last Admin: 04/08/20 09:07 Dose: 50 mg Documented by: Ondansetron HCl (Zofran Injection) 4 mg IVPUSH Q6H PRN PRN Reason: NAUSEA AND/OR VOMITING Potassium Chloride (K-Dur -) 20 meq PO BID [facility] Last Admin: 04/08/20 09:07 Dose: 20 meq Documented by: Umeclidinium/Vilanterol (Anoro Ellipta 62.5-25 Mcg Inh) 1 puff IH DAILY [facility] Last Admin: 04/08/20 09:06 Dose: 1 puff Documented by: Vancomycin HCl (Vancomycin Oral Solution) 250 mg PO TID [facility] Last Admin: 04/08/20 06:35 Dose: 250 mg Documented by: Zolpidem Tartrate (Ambien -) 5 mg PO HS PRN PRN Reason: INSOMNIA Last Admin: 04/06/20 23:07 Dose: 5 mg Documented by: - Objective Vital Signs: Vital Signs Temperature 97.8 F 04/08/20 06:00 Pulse Rate 71 04/08/20 06:00 Respiratory Rate 20 04/08/20 06:00 Blood Pressure 173/74 H 04/08/20 06:00 O2 Sat by Pulse Oximetry (%) 97 04/08/20 06:00 Constitutional: Yes: No Distress, Calm Neck: Yes: Supple Cardiovascular: Yes: Regular Rate and Rhythm Respiratory: Yes: Regular, CTA Bilaterally Gastrointestinal: Yes: Normal Bowel Sounds, Soft, Abdomen, Obese Edema: Yes Edema: LLE: Trace, RLE: Trace Labs: CBC, BMP 04/08/20 05:50 04/08/20 05:50 INR, PTT INR 1.04 (0.83-1.09) 03/31/20 01:45 Problem List - Problems (1) Hematuria Code(s): R31.9 - HEMATURIA, UNSPECIFIED Qualifiers: Hematuria type: gross Qualified Code(s): R31.0 - Gross hematuria (2) [id number] kidney injury Code(s): N17.9 - ACUTE KIDNEY FAILURE, UNSPECIFIED; N18.9 - CHRONIC KIDNEY D ISEASE, UNSPECIFIED Qualifiers: Chronic kidney disease stage: stage 2 (mild) (3) Coronary artery disease Code(s): I25.10 - ATHSCL HEART DISEASE OF [place] CORONARY ARTERY W/O ANG PCTRS Qualifiers: Coronary Disease-Associated Artery/Lesion type: [place] artery [place] vs. transplanted heart: [place] heart Associated angina: without angina Qualified Code(s): I25.10 - Atherosclerotic heart disease of [place] coronary artery without angina pectoris (4) Aguilar catheter problem Code(s): T83.9XXA - UNSP COMPLICATION OF GENITOURINARY PROSTH DEV/GRFT, INIT Qualifiers: Encounter type: initial encounter Qualified Code(s): T83.9XXA - Unspecified complication of genitourinary prosthetic device, implant and graft, initial en counter (5) HLD (hyperlipidemia) Code(s): E78.5 - HYPERLIPIDEMIA, UNSPECIFIED Qualifiers: Hyperlipidemia type: pure hypercholesterolemia Qualified Code(s): E78.00 - Pure hypercholesterolemia, unspecified; E78.0 - Pure hypercholesterolemia (6) Hypertensive heart disease Code(s): I11.9 - HYPERTENSIVE HEART DISEASE WITHOUT HEART FAILURE Qualifiers: Heart failure presence: without heart failure Qualified Code(s): I11.9 - Hypertensive heart disease without heart failure (7) Presence of drug-eluting stent in right coronary artery Code(s): Z95.5 - PRESENCE OF CORONARY ANGIOPLASTY IMPLANT AND GRAFT (8) S/P TURP Code(s): Z90.79 - ACQUIRED ABSENCE OF OTHER GENITAL ORGAN(S) (9) Sleep apnea Code(s): G47.30 - SLEEP APNEA, UNSPECIFIED Qualifiers: Sleep apnea type: obstructive Qualified Code(s): G47.33 - Obstructive sleep apnea (adult) (pediatric) (10) UTI (urinary tract infection) Code(s): N39.0 - URINARY TRACT INFECTION, SITE NOT SPECIFIED Qualifiers: Urinary tract infection type: acute cystitis Hematuria presence: with hematuria Qualified Code(s): N30.01 - Acute cystitis with hematuria (11) Urinary retention Code(s): R33.9 - RETENTION OF URINE, UNSPECIFIED Assessment/Plan 05/20/2018 Nuc stress: Mod inferior ischemia with small infarct, LVEF 52% 05/20/2018 Echo: Normal LV size with mod cLVH, LVEF 55-60%, mild LAE, mod MR, tr TR 05/21/2018 [facility] performed at [facility] for [place]/NSTEMI and moderate inferior ischemia. 2 vessel CAD 90-95% ostial LCx-OM (medium sized vessel) left alone, 90-95% prox RCA which was treated with implant Resolute [place] 4.0x18 mm FISH post- dilated with NC 4.5x15 balloon @ 14 SARAHY, normal LV fxn LVEF 65-70% with elevated LVEDP 27 mmHg, no aortic stenosis. 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 Recommend optimal medical therapy for secondary prevention of cardiovascular disease, consider PCI of LCx-OM if remains symptomatic despite meds, patient is candidate for cardiac rehab. 1. Recurrent hematuria since cleared, clots and urinary retention s/p cystoscopy , fulguration of bleeding, evacuation of clots 2. R/o recurrent Sepsis source post TURP s/p cysto/evac clots/fulguration bleeding vessels 3. COPD, pulm fibrosis 4. CAD s/p FISH RCA 5. Diastolic dysfunction 6. Type 2 DM 7. Acute on CKD (obstructive) with proteinuria resolving 8. OSAS on cpap @ 7 cm H2O 9. Hypertensive heart disease 10. Hyperlipidemia 11 H/o PE 12. COVID PCR -, antibody + 13. Acute blood loss anemia post transfusion 14. c. diff Ag+ PLAN: 1. Hold ASA and Plavix until hematuria resolves (FISH placed 2017) then restart Plavix alone given recurrent hematuria 2 weeks after hemostasis achieved, monitor Hgb post transfusion 2. Continue Lipitor 80 qd 3. Continue Carvedilol 25 bid 4. Continue Cozaar 50 qd given renal recovery, replete K, wean hydralazine 25 bid 5. Continue Norvasc 10 qd 6. Completed empiric antibiotic course, continue oral vanco course as per ID team 7. BD, O2 as needed, cpap @ 7 cm H2O nightly, d/c planning
--- NOTE | 2020-04-08 10:43 | PN ---
Progress Note, Physician History of Present Illness: stable no new issues - Current Medication List Current Medications: Active Medications Acetaminophen (Tylenol -) 650 mg PO TID [facility] Last Admin: 04/08/20 06:35 Dose: 650 mg Documented by: Albuterol Sulfate (Ventolin Hfa Inhaler -) 2 puff IH RQID [facility] Last Admin: 04/08/20 09:06 Dose: 2 puff Documented by: Amlodipine Besylate (Norvasc -) 10 mg PO DAILY [facility] Last Admin: 04/08/20 09:08 Dose: 10 mg Documented by: Atorvastatin Calcium (Lipitor -) 80 mg PO HS [facility] Last Admin: 04/07/20 21:19 Dose: 80 mg Documented by: Budesonide/Formoterol Fumarate (Symbicort 160/4.5mcg -) 2 puff IH BID [facility] Last Admin: 04/08/20 09:06 Dose: 2 puff Documented by: Carvedilol (Coreg -) 25 mg PO BID [facility] Last Admin: 04/08/20 09:07 Dose: 25 mg Documented by: Docusate Sodium (Colace -) 100 mg PO Q12H PRN PRN Reason: CONSTIPATION Last Admin: 04/04/20 21:02 Dose: 100 mg Documented by: Glipizide (Glucotrol -) 5 mg PO DAILY@0700 [facility] Last Admin: 04/08/20 06:35 Dose: 5 mg Documented by: Hydralazine HCl (Apresoline -) 25 mg PO BID [facility] Last Admin: 04/08/20 09:07 Dose: 25 mg Documented by: Meropenem 1 gm/ Dextrose 100 mls @ 200 mls/hr IVPB Q8H-IV [facility] Last Admin: 04/08/20 09:08 Dose: 200 mls/hr Documented by: Losartan Potassium (Cozaar -) 50 mg PO DAILY [facility] Last Admin: 04/08/20 09:07 Dose: 50 mg Documented by: Ondansetron HCl (Zofran Injection) 4 mg IVPUSH Q6H PRN PRN Reason: NAUSEA AND/OR VOMITING Potassium Chloride (K-Dur -) 20 meq PO BID [facility] Last Admin: 04/08/20 09:07 Dose: 20 meq Documented by: Umeclidinium/Vilanterol (Anoro Ellipta 62.5-25 Mcg Inh) 1 puff IH DAILY [facility] Last Admin: 04/08/20 09:06 Dose: 1 puff Documented by: Vancomycin HCl (Vancomycin Oral Solution) 250 mg PO TID [facility] Last Admin: 04/08/20 06:35 Dose: 250 mg Documented by: Zolpidem Tartrate (Ambien -) 5 mg PO HS PRN PRN Reason: INSOMNIA Last Admin: 04/06/20 23:07 Dose: 5 mg Documented by: - Objective Vital Signs: Vital Signs Temperature 97.8 F 04/08/20 06:00 Pulse Rate 71 04/08/20 06:00 Respiratory Rate 20 04/08/20 06:00 Blood Pressure 173/74 H 04/08/20 06:00 O2 Sat by Pulse Oximetry (%) 97 04/08/20 06:00 Constitutional: Yes: No Distress, Calm Cardiovascular: Yes: S1, S2 Respiratory: Yes: Regular, CTA Bilaterally Gastrointestinal: Yes: Normal Bowel Sounds, Soft Musculoskeletal: Yes: WNL Extremities: Yes: WNL Neurological: Yes: Alert, Oriented Psychiatric: Yes: Alert, Oriented Labs: CBC, BMP 04/08/20 05:50 04/08/20 05:50 INR, PTT INR 1.04 (0.83-1.09) 03/31/20 01:45 Assessment/Plan Problem List - Problems (1) Hematuria Code(s): R31.9 - HEMATURIA, UNSPECIFIED Qualifiers: Hematuria type: gross Qualified Code(s): R31.0 - Gross hematuria (2) Acute [place], inferior wall, initial episode of care Code(s): I21.19 - STEMI INVOLVING OTH CORONARY ARTERY OF INFERIOR WALL (3) Rfkdd-dv-zhupxib kidney injury Code(s): N17.9 - ACUTE KIDNEY FAILURE, UNSPECIFIED; N18.9 - CHRONIC KIDNEY DISEASE, UNSPECIFIED Qualifiers: Chronic kidney disease stage: stage 2 (mild) (4) BPH (benign prostatic hyperplasia) Code(s): N40.0 - BENIGN PROSTATIC HYPERPLASIA WITHOUT LOWER URINRY TRACT SYMP (5) CKD (chronic kidney disease) Code(s): N18.9 - CHRONIC KIDNEY DISEASE, UNSPECIFIED (6) Calcaneal spur, right foot Code(s): M77.31 - CALCANEAL SPUR, RIGHT FOOT (7) Cystitis Code(s): N30.90 - CYSTITIS, UNSPECIFIED WITHOUT HEMATURIA (8) Dysuria Code(s): R30.0 - DYSURIA (9) HLD (hyperlipidemia) Code(s): E78.5 - HYPERLIPIDEMIA, UNSPECIFIED Qualifiers: Hyperlipidemia type: pure hypercholesterolemia Qualified Code(s): E78.00 - Pure hypercholesterolemia, unspecified; E78.0 - Pure hypercholesterolemia (10) Hypercholesterolemia Code(s): E78.00 - PURE HYPERCHOLESTEROLEMIA, UNSPECIFIED (11) Hypokalemia Code(s): E87.6 - HYPOKALEMIA (12) Lumbar radiculopathy, chronic Code(s): M54.16 - RADICULOPATHY, LUMBAR REGION (13) NSTEMI (non-ST elevated myocardial infarction) Code(s): I21.4 - NON-ST ELEVATION (NSTEMI) MYOCARDIAL INFARCTION (14) Obesity (BMI 30.0-34.9) Code(s): E66.9 - OBESITY, UNSPECIFIED (15) Presence of drug-eluting stent in right coronary artery Code(s): Z95.5 - PRESENCE OF CORONARY ANGIOPLASTY IMPLANT AND GRAFT (16) S/P TURP Code(s): Z90.79 - ACQUIRED ABSENCE OF OTHER GENITAL ORGAN(S) (17) Shingles (herpes zoster) polyneuropathy Code(s): B02.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 (18) Sleep apnea Code(s): G47.30 - SLEEP APNEA, UNSPECIFIED Qualifiers: Sleep apnea type: obstructive Qualified Code(s): G47.33 - Obstructive sleep apnea (adult) (pediatric) (19) Syncope Code(s): R55 - SYNCOPE AND COLLAPSE (20) UTI (urinary tract infection) Code(s): N39.0 - URINARY TRACT INFECTION, SITE NOT SPECIFIED Qualifiers: Urinary tract infection type: acute cystitis Hematuria presence: with hematuria Qualified Code(s): N30.01 - Acute cystitis with hematuria (21) Urinary retention Code(s): R33.9 - RETENTION OF URINE, UNSPECIFIED plan stopped abx oral vanco for 10 more days rest as per the team
[2020-04-08 14:10] VITALS: BP 143/56; PULSE 74; TEMP 98.3
--- NOTE | 2020-04-08 14:18 | DS ---
Physical Examination Vital Signs: Vital Signs Temperature 98.3 F 04/08/20 14:09 Pulse Rate 74 04/08/20 14:09 Respiratory Rate 20 04/08/20 14:09 Blood Pressure 143/56 L 04/08/20 14:09 O2 Sat by Pulse Oximetry (%) 98 04/08/20 10:00 Findings/Remarks: Operative Date: 04/01/20 Pre-Operative Diagnosis: gross hematuria, clot urinary retention Operation: cystoscopy, fulguration of bleeding, evacuation of clots Findings: prostatic hemorrhage Post-Operative Diagnosis: Same as Pre-op (+ prostatic hemorrhage) Surgeon: Watson Jj Anesthesiologist/CHIEF EMBALMER: Lyndsey Chapin MD Anesthesia: General Specimens Removed: blood clots Drains & Tubes with Location: [address] 30 ml aguilar Pt was seen by Urology Dr Peacock as he is not available Pt had Dr Jj on Board Pt was also seen by Dr Mesfin richardson urology also Pt had 3 units of PRBc Pt having now C.diff Constitutional: Yes: Calm Eyes: Yes: Conjunctiva Clear, EOM Intact HENT: Yes: Atraumatic, Normocephalic Neck: Yes: Supple, Trachea Midline Cardiovascular: Yes: Regular Rate and Rhythm, S1, S2 Respiratory: Yes: Regular, CTA Bilaterally Gastrointestinal: Yes: Normal Bowel Sounds, Soft Musculoskeletal: Yes: Joint Stiffness Edema: Yes Edema: LLE: 1+, RLE: 1+ Neurological: Yes: Alert, Oriented, Cran Nerves II-XII Intact Labs: CBC, BMP 04/08/20 05:50 04/08/20 05:50 Discharge Summary Problems reviewed: Yes Reason For Visit: HEMATURIA Current Active Problems BILL (acute kidney injury) (Acute) COVID-19 (Acute) Hematuria (Acute) Pulmonary fibrosis (Acute) Condition: Fair - Instructions Referrals: Sebastian Arriaga MD [Primary Care Provider] - Disposition: VNS/HOME HEALTH CARE - Home Medications Comprehensive Discharge Medication List: Ambulatory Orders Aspirin [ASA -] 81 mg PO DAILY 11/05/18 DIscontinue Clopidogrel Bisulfate [Plavix] 75 mg PO DAILY 11/05/18 Discontinue Potassium Chloride [Klor-Con M20] 20 meq PO DAILY BID Tamsulosin HCl [Flomax] 0.8 mg PO DAILY 11/05/18 Albuterol Sulfate [Proair Hfa] 8.5 gm IH PRN 09/25/19 Amlodipine Besylate 10 mg PO BID 09/25/19 Atorvastatin Ca [Lipitor] 80 mg PO HS 09/25/19 Carvedilol [Coreg -] 25 PO BID 09/25/19 Gabapentin 400 mg PO PRN PRN 09/25/19 Losartan Potassium 25 mg PO DAILY 09/25/19 Torsemide 20 mg PO DAILY 09/25/19 discontinue Umeclidinium Brm/Vilanterol Tr [Anoro Ellipta 62.5-25 Mcg INH] 1 each IH DAILY 09/25/19 vancomycin 250 TID for 14 days Bacid one Po BID for 30 days all meds sent to his Pharmacy outside
--- NOTE | 2020-04-08 14:18 | PN ---
Progress Note, Physician History of Present Illness: Pt wanted to go Home Discussed with Urology No Hematuria Grossly discussed with ID Pt will be on PO Vanco Bacid Pt will be off ASA and Plavix till cleared by Urology with a preat Cystoscopy and UA No Fever WBC is normal - Current Medication List Current Medications: Active Medications Acetaminophen (Tylenol -) 650 mg PO TID [facility] Last Admin: 04/08/20 06:35 Dose: 650 mg Documented by: Albuterol Sulfate (Ventolin Hfa Inhaler -) 2 puff IH RQID [facility] Last Admin: 04/08/20 12:47 Dose: 2 puff Documented by: Amlodipine Besylate (Norvasc -) 10 mg PO DAILY [facility] Last Admin: 04/08/20 09:08 Dose: 10 mg Documented by: Atorvastatin Calcium (Lipitor -) 80 mg PO HS [facility] Last Admin: 04/07/20 21:19 Dose: 80 mg Documented by: Budesonide/Formoterol Fumarate (Symbicort 160/4.5mcg -) 2 puff IH BID [facility] Last Admin: 04/08/20 09:06 Dose: 2 puff Documented by: Carvedilol (Coreg -) 25 mg PO BID [facility] Last Admin: 04/08/20 09:07 Dose: 25 mg Documented by: Docusate Sodium (Colace -) 100 mg PO Q12H PRN PRN Reason: CONSTIPATION Last Admin: 04/04/20 21:02 Dose: 100 mg Documented by: Glipizide (Glucotrol -) 5 mg PO DAILY@0700 [facility] Last Admin: 04/08/20 06:35 Dose: 5 mg Documented by: Hydralazine HCl (Apresoline -) 25 mg PO BID [facility] Last Admin: 04/08/20 09:07 Dose: 25 mg Documented by: Losartan Potassium (Cozaar -) 50 mg PO DAILY [facility] Last Admin: 04/08/20 09:07 Dose: 50 mg Documented by: Ondansetron HCl (Zofran Injection) 4 mg IVPUSH Q6H PRN PRN Reason: NAUSEA AND/OR VOMITING Potassium Chloride (K-Dur -) 20 meq PO BID [facility] Last Admin: 04/08/20 09:07 Dose: 20 meq Documented by: Umeclidinium/Vilanterol (Anoro Ellipta 62.5-25 Mcg Inh) 1 puff IH DAILY [facility] Last Admin: 04/08/20 09:06 Dose: 1 puff Documented by: Vancomycin HCl (Vancomycin Oral Solution) 250 mg PO TID [facility] Last Admin: 04/08/20 06:35 Dose: 250 mg Documented by: Zolpidem Tartrate (Ambien -) 5 mg PO HS PRN PRN Reason: INSOMNIA Last Admin: 04/06/20 23:07 Dose: 5 mg Documented by: - Objective Vital Signs: Vital Signs Temperature 98.3 F 04/08/20 14:09 Pulse Rate 74 04/08/20 14:09 Respiratory Rate 20 04/08/20 14:09 Blood Pressure 143/56 L 04/08/20 14:09 O2 Sat by Pulse Oximetry (%) 98 04/08/20 10:00 Constitutional: Yes: Calm Eyes: Yes: Conjunctiva Clear, EOM Intact HENT: Yes: Atraumatic, Normocephalic Neck: Yes: Supple, Trachea Midline Cardiovascular: Yes: Regular Rate and Rhythm Respiratory: Yes: Regular, CTA Bilaterally Gastrointestinal: Yes: Normal Bowel Sounds, Soft Labs: CBC, BMP 04/08/20 05:50 04/08/20 05:50 INR, PTT INR 1.04 (0.83-1.09) 03/31/20 01:45 Problem List - Problems (1) Hematuria Code(s): R31.9 - HEMATURIA, UNSPECIFIED Qualifiers: Hematuria type: gross Qualified Code(s): R31.0 - Gross hematuria (2) Acute [place], inferior wall, initial episode of care Code(s): I21.19 - STEMI INVOLVING OTH CORONARY ARTERY OF INFERIOR WALL (3) Bxohj-xo-syeytuv kidney injury Code(s): N17.9 - ACUTE KIDNEY FAILURE, UNSPECIFIED; N18.9 - CHRONIC KIDNEY DISEASE, UNSPECIFIED Qualifiers: Chronic kidney disease stage: stage 2 (mild) (4) BPH (benign prostatic hyperplasia) Code(s): N40.0 - BENIGN PROSTATIC HYPERPLASIA WITHOUT LOWER URINRY TRACT SYMP (5) CKD (chronic kidney disease) Code(s): N18.9 - CHRONIC KIDNEY DISEASE, UNSPECIFIED (6) Calcaneal spur, right foot Code(s): M77.31 - CALCANEAL SPUR, RIGHT FOOT (7) Cystitis Code(s): N30.90 - CYSTITIS, UNSPECIFIED WITHOUT HEMATURIA (8) Dysuria Code(s): R30.0 - DYSURIA (9) HLD (hyperlipidemia) Code(s): E78.5 - HYPERLIPIDEMIA, UNSPECIFIED Qualifiers: Hyperlipidemia type: pure hypercholesterolemia Qualified Code(s): E78.00 - Pure hypercholesterolemia, unspecified; E78.0 - Pure hypercholesterolemia (10) Hypercholesterolemia Code(s): E78.00 - PURE HYPERCHOLESTEROLEMIA, UNSPECIFIED (11) Hypokalemia Code(s): E87.6 - HYPOKALEMIA (12) Lumbar radiculopathy, chronic Code(s): M54.16 - RADICULOPATHY, LUMBAR REGION (13) NSTEMI (non-ST elevated myocardial infarction) Code(s): I21.4 - NON-ST ELEVATION (NSTEMI) MYOCARDIAL INFARCTION (14) Obesity (BMI 30.0-34.9) Code(s): E66.9 - OBESITY, UNSPECIFIED (15) Presence of drug-eluting stent in right coronary artery Code(s): Z95.5 - PRESENCE OF CORONARY ANGIOPLASTY IMPLANT AND GRAFT (16) S/P TURP Code(s): Z90.79 - ACQUIRED ABSENCE OF OTHER GENITAL ORGAN(S) (17) Shingles (herpes zoster) polyneuropathy Code(s): B02.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 (18) Sleep apnea Code(s): G47.30 - SLEEP APNEA, UNSPECIFIED Qualifiers: Sleep apnea type: obstructive Qualified Code(s): G47.33 - Obstructive sleep apnea (adult) (pediatric) (19) Syncope Code(s): R55 - SYNCOPE AND COLLAPSE (20) UTI (urinary tract infection) Code(s): N39.0 - URINARY TRACT INFECTION, SITE NOT SPECIFIED Qualifiers: Urinary tract infection type: acute cystitis Hematuria presence: with hematuria Qualified Code(s): N30.01 - Acute cystitis with hematuria (21) Urinary retention Code(s): R33.9 - RETENTION OF URINE, UNSPECIFIED
[2020-04-08] MEDS ORDERED: PT OWN MED DRAWER 7, Y5N ONE (14:23)
--- NOTE | 2020-04-08 14:39 | PN ---
Progress Note (short form) - Note Progress Note: Resting in a chair on RA. No CP or SOB. Used his own PAP device last night. Intake & Output 04/05/20 04/06/20 04/07/20 04/08/20 23:59 23:59 23:59 23:59 Intake Total 9650 2073 1040 300 Output Total 10646 1650 Balance -3300 423 1040 300 Last Vital Signs Temp Pulse Resp BP Pulse Ox 98.3 F 74 20 143/56 L 98 04/08/20 14:09 04/08/20 14:09 04/08/20 14:09 04/08/20 14:09 04/08/20 10:00 Active Medications Acetaminophen (Tylenol -) 650 mg PO TID [facility] Last Admin: 04/08/20 14:27 Dose: 650 mg Documented by: Albuterol Sulfate (Ventolin Hfa Inhaler -) 2 puff IH RQID [facility] Last Admin: 04/08/20 12:47 Dose: 2 puff Documented by: Amlodipine Besylate (Norvasc -) 10 mg PO DAILY [facility] Last Admin: 04/08/20 09:08 Dose: 10 mg Documented by: Atorvastatin Calcium (Lipitor -) 80 mg PO HS [facility] Last Admin: 04/07/20 21:19 Dose: 80 mg Documented by: Budesonide/Formoterol Fumarate (Symbicort 160/4.5mcg -) 2 puff IH BID [facility] Last Admin: 04/08/20 09:06 Dose: 2 puff Documented by: Carvedilol (Coreg -) 25 mg PO BID [facility] Last Admin: 04/08/20 09:07 Dose: 25 mg Documented by: Docusate Sodium (Colace -) 100 mg PO Q12H PRN PRN Reason: CONSTIPATION Last Admin: 04/04/20 21:02 Dose: 100 mg Documented by: Glipizide (Glucotrol -) 5 mg PO DAILY@0700 [facility] Last Admin: 04/08/20 06:35 Dose: 5 mg Documented by: Hydralazine HCl (Apresoline -) 25 mg PO BID [facility] Last Admin: 04/08/20 09:07 Dose: 25 mg Documented by: Losartan Potassium (Cozaar -) 50 mg PO DAILY [facility] Last Admin: 04/08/20 09:07 Dose: 50 mg Documented by: Ondansetron HCl (Zofran Injection) 4 mg IVPUSH Q6H PRN PRN Reason: NAUSEA AND/OR VOMITING Potassium Chloride (K-Dur -) 20 meq PO BID [facility] Last Admin: 04/08/20 09:07 Dose: 20 meq Documented by: Umeclidinium/Vilanterol (Anoro Ellipta 62.5-25 Mcg Inh) 1 puff IH DAILY [facility] Last Admin: 04/08/20 09:06 Dose: 1 puff Documented by: Vancomycin HCl (Vancomycin Oral Solution) 250 mg PO TID [facility] Last Admin: 04/08/20 14:28 Dose: 250 mg Documented by: Zolpidem Tartrate (Ambien -) 5 mg PO HS PRN PRN Reason: INSOMNIA Last Admin: 04/06/20 23:07 Dose: 5 mg Documented by: Constitutional: Yes: No Distress, Calm Neck: Yes: Supple Cardiovascular: Yes: Regular Rate and Rhythm Respiratory: Yes: Regular, CTA Bilaterally Gastrointestinal: Yes: Normal Bowel Sounds, Soft Edema: No Labs: Laboratory Results - last 24 hr 04/08/20 04/08/20 04/08/20 05:50 05:50 05:52 WBC 7.3 RBC 2.91 L Hgb 8.7 L Hct 25.3 L MCV 87.0 MCH 29.8 MCHC 34.3 RDW 15.5 Plt Count 236 MPV 7.6 Absolute Neuts (auto) 4.6 Neutrophils % 63.4 Lymphocytes % 21.1 Monocytes % 11.3 H Eosinophils % 3.7 Basophils % 0.5 Nucleated RBC % 0 Sodium 144 Potassium 3.0 L Chloride 108 H Carbon Dioxide 29 Anion Gap 7 L BUN 14.6 Creatinine 0.9 Est GFR (CKD-EPI)AfAm 96.49 Est GFR (CKD-EPI)NonAf 83.25 POC Glucometer 123 Random Glucose 126 H Calcium 8.1 L Problem List - Problems (1) COVID-19 Code(s): U07.1 - COVID POSITIVE (2) BILL (acute kidney injury) Code(s): N17.9 - ACUTE KIDNEY FAILURE, UNSPECIFIED (3) Hematuria Code(s): R31.9 - HEMATURIA, UNSPECIFIED Qualifiers: Hematuria type: gross Qualified Code(s): R31.0 - Gross hematuria (4) [id number] kidney injury Code(s): N17.9 - ACUTE KIDNEY FAILURE, UNSPECIFIED; N18.9 - CHRONIC KIDNEY DISEASE, UNSPECIFIED Qualifiers: Chronic kidney disease stage: stage 2 (mild) (5) BPH (benign prostatic hyperplasia) Code(s): N40.0 - BENIGN PROSTATIC HYPERPLASIA WITHOUT LOWER URINRY TRACT SYMP (6) COPD (chronic obstructive pulmonary disease) with acute bronchitis Code(s): J44.0 - CHR OBSTRUCTIVE PULMON DISEASE WITH (ACUTE) LOWER RESP INFCT; J20.9 - ACUTE BRONCHITIS, UNSPECIFIED (7) Coronary artery disease Code(s): I25.10 - ATHSCL HEART DISEASE OF [place] CORONARY ARTERY W/O ANG PCTRS Qualifiers: Coronary Disease-Associated Artery/Lesion type: [place] artery [place] vs. transplanted heart: [place] heart Associated angina: without angina Qualified Code(s): I25.10 - Atherosclerotic heart disease of [place] coronary artery without angina pectoris (8) HLD (hyperlipidemia) Code(s): E78.5 - HYPERLIPIDEMIA, UNSPECIFIED Qualifiers: Hyperlipidemia type: pure hypercholesterolemia Qualified Code(s): E78.00 - Pure hypercholesterolemia, unspecified; E78.0 - Pure hypercholesterolemia (9) Hematuria Code(s): R31.9 - HEMATURIA, UNSPECIFIED Qualifiers: Hematuria type: gross Qualified Code(s): R31.0 - Gross hematuria (10) Obesity (BMI 30.0-34.9) Code(s): E66.9 - OBESITY, UNSPECIFIED (11) S/P TURP Code(s): Z90.79 - ACQUIRED ABSENCE OF OTHER GENITAL ORGAN(S) (12) Sleep apnea Code(s): G47.30 - SLEEP APNEA, UNSPECIFIED Qualifiers: Sleep apnea type: obstructive Qualified Code(s): G47.33 - Obstructive sleep apnea (adult) (pediatric) (13) Urinary retention Code(s): R33.9 - RETENTION OF URINE, UNSPECIFIED (14) Pulmonary fibrosis Code(s): J84.10 - PULMONARY FIBROSIS, UNSPECIFIED IMP HEMATURIA/URINARY RETENTION S/P CYSTO/FULGURATION OF BLEEDING EVACUATION OF CLOTS SECONDARY TO PROSTATIC HEMORRHAGE H/O COVID COMPLICATED BY ACUTE RESPIRATORY FAILURE,?PE ASHD S/P STENT' COPD PULMONARY FIBROSIS HTN HLD H/O PE S/P TURP 02/23/20 ACUTE ON CHRONOC KIDNEY DISEASE [place] ON CPAP [address] CAN BE PERFORMED AN OUTPATIENT CPAP @ 7 CM H2O QHS DC PLANNING Dr Ambrosio
== END 2020-04-08 16:30 | disposition home health service (06) | DRG 988 ==
LOC: JER 22:37 → JERBED 03-31 09:38 → J7W 03-31 12:38
PROVIDERS: ADMIT Internal Medicine; ATTEND Internal Medicine
PROC: 0TCB8ZZ Extirpation of Matter from Bladder, Via Natural or Artificial Opening Endoscopic (ICD-10-PCS; 2020-04-01)
PROC: 0TJB8ZZ Inspection of Bladder, Via Natural or Artificial Opening Endoscopic (ICD-10-PCS; 2020-04-01)
PROC: 0T5B8ZZ Destruction of Bladder, Via Natural or Artificial Opening Endoscopic (ICD-10-PCS; principal; 2020-04-01 12:00)
PROC: 30233N1 Transfusion of Nonautologous Red Blood Cells into Peripheral Vein, Percutaneous Approach (ICD-10-PCS; 2020-04-01 12:00)
DX: N99.820 Postprocedural hemorrhage of a genitourinary system organ or structure following a genitourinary system procedure (principal); N17.9 Acute kidney failure, unspecified; I13.0 Hypertensive heart and chronic kidney disease with heart failure and stage 1 through stage 4 chronic kidney disease, or unspecified chronic kidney disease; N39.0 Urinary tract infection, site not specified; D62 Acute posthemorrhagic anemia; I10 Essential (primary) hypertension; E78.5 Hyperlipidemia, unspecified; I25.10 Atherosclerotic heart disease of native coronary artery without angina pectoris; N40.0 Benign prostatic hyperplasia without lower urinary tract symptoms; J84.10 Pulmonary fibrosis, unspecified; J44.9 Chronic obstructive pulmonary disease, unspecified; I34.1 Nonrheumatic mitral (valve) prolapse; K57.90 Diverticulosis of intestine, part unspecified, without perforation or abscess without bleeding; K64.9 Unspecified hemorrhoids; G47.30 Sleep apnea, unspecified; M54.5 Low back pain; K21.9 Gastro-esophageal reflux disease without esophagitis; M54.16 Radiculopathy, lumbar region; E11.22 Type 2 diabetes mellitus with diabetic chronic kidney disease; N18.9 Chronic kidney disease, unspecified; B96.5 Pseudomonas (aeruginosa) (mallei) (pseudomallei) as the cause of diseases classified elsewhere; R33.9 Retention of urine, unspecified; I50.9 Heart failure, unspecified; E87.6 Hypokalemia; E66.9 Obesity, unspecified; Z68.30 Body mass index [BMI] 30.0-30.9, adult; E11.42 Type 2 diabetes mellitus with diabetic polyneuropathy; Z99.81 Dependence on supplemental oxygen; Z86.711 Personal history of pulmonary embolism; Z95.5 Presence of coronary angioplasty implant and graft; Z86.19 Personal history of other infectious and parasitic diseases
CPT/HCPCS: 36415; 36430; 71045-TC-FY; 80048; 80053; 81003; 82962; 83605; 83735; 85025; 85027; 85610; 86769; 86850; 86900; 86901; 86922; 87040; 87086; 87186; 87324; 87449; 93005; 93010; 94760; 99291; J0131; P9058; U0003

== ENCOUNTER 2022-08-22 12:27 | Emergency (ER) | payer OTHER, BC ==
[2022-08-22 13:25] VITALS: TEMP 97.5; BMI 32.3
[2022-08-22 15:54] LABS: BASO % 0.3 % (0-2.0); EOS % 1.6 % (0-4.5); HEMATOCRIT 35.9 % (35.4-49); HEMOGLOBIN 11.9 GM/dL (11.7-16.9); LYMPH % 12.9 % (8-40); MCH 29.9 pg (25.7-33.7); MCHC 33.3 g/dl (32.0-35.9); MEAN CELL VOLUME 89.8 fl (80-96); MEAN PLT VOLUME 8.3 fl (7.5-11.1); MONO % 6.5 % (3.8-10.2); NEUT % 78.7 % (42.8-82.8); PLATELET COUNT 227 10^3/uL (134-434); RBC 3.99 M/mm3 (4.00-5.60); RDW 14.9 % (11.9-15.9)
[2022-08-22 16:23] LABS: CALCIUM 9.1 mg/dL (8.5-10.1)
[2022-08-22 16:24] LABS: BLOOD UREA NITROGEN 39.8 mg/dL (7-18)
[2022-08-22 16:27] VITALS: BP 137/64; PULSE 72; RESP 19
[2022-08-22 16:27] LABS: CREATININE 2.2 mg/dL (0.55-1.3)
[2022-08-22 16:29] LABS: BILIRUBIN,TOTAL 0.5 mg/dL (0.2-1); TOT PROT 7.7 g/dl (6.4-8.2)
[2022-08-22] MEDS ORDERED: SODIUM CHLORIDE 1,000 ML IV SCH (18:45)
[2022-08-22 19:57] LABS: URINE APPEARANCE CLEAR; URINE BILIRUBIN NEGATIVE (NEGATIVE); URINE COLOR YELLOW; URINE GLUCOSE (UA) NEGATIVE (NEGATIVE); URINE KETONE NEGATIVE (NEGATIVE); URINE LEUK ESTERASE NEGATIVE (NEGATIVE); URINE NITRITE NEGATIVE (NEGATIVE); URINE PROTEIN TRACE (NEGATIVE); URINE UROBILINOGEN 0.2 mg/dL (0.2-1.0)
== END 2022-08-22 20:11 | disposition left against medical advice (07) ==
LOC: JER 12:27
DX: I25.10 Atherosclerotic heart disease of native coronary artery without angina pectoris (principal); R55 Syncope and collapse
CPT/HCPCS: 0241U-QW; 36415; 70450-TC; 71045-TC-FY; 80053; 81003; 82962; 84484; 85025; 87086; 93005; 93010; 99285-25

== ENCOUNTER 2023-01-30 15:16 | Observation (INO) | payer OTHER, BC ==
[2023-01-30 15:43] VITALS: BMI 30.7
[2023-01-30] MEDS ORDERED: LOSARTAN POTASSIUM 50 MG TABLET PO ONE (15:45)
[2023-01-30] MEDS ORDERED: CARVEDILOL 25 MG TABLET (FP) PO ONE (15:45)
[2023-01-30] MEDS ORDERED: amLODIPine BESYLATE 5 MG TABLET (FP) PO ONE (15:45)
[2023-01-30] MEDS ORDERED: LOSARTAN POTASSIUM 50 MG TABLET ONE (15:51)
[2023-01-30] MEDS ORDERED: amLODIPine BESYLATE 5 MG TABLET (FP) ONE (15:51)
[2023-01-30 16:41] LABS: HEMATOCRIT 34.1 % (35.4-49); HEMOGLOBIN 11.4 G/dL (11.7-16.9); MCH 30.4 pg (25.7-33.7); MCHC 33.5 g/dl (32.0-35.9); MEAN CELL VOLUME 90.9 fl (80-96); MEAN PLT VOLUME 8.3 fl (7.5-11.1); PLATELET COUNT 188.5 10^3/uL (134-434); RBC 3.75 10^6/uL (4.00-5.60); RDW 15.9 % (11.9-15.9); WHITE BLOOD COUNT 8.6 10^3/uL (4.0-10.8)
[2023-01-30 16:55] LABS: ALBUMIN 3.9 g/dl (3.4-5.0); BILIRUBIN,TOTAL 0.8 mg/dl (0.2-1); CALCIUM 9.7 mg/dl (8.5-10); CREATININE 1.5 mg/dl (0.55-1.3); POTASSIUM 3.9 mmol/L (3.5-5.1); TOT PROT 6.9 g/dl (6.4-8.2)
[2023-01-30] MEDS ORDERED: hydrALAZINE HCL 20 MG/ML VIAL IVPUSH ONE (18:03)
[2023-01-30] MEDS ORDERED: hydrALAZINE HCL 20 MG/ML VIAL ONE (18:14)
[2023-01-30] MEDS ORDERED: NIFEdipine E.R. 30 MG TABLET PO ONE ×2 (18:37→18:39)
[2023-01-30] MEDS: NIFEdipine E.R 60 MG TABLET PO SCH (18:40)
[2023-01-30] MEDS ORDERED: TORSEMIDE 20 MG TABLET (FP) PO ONE (18:45)
[2023-01-30] MEDS ORDERED: LABETALOL HCL 5 MG/1 ML (100MG/20 ML VIAL) IVPUSH ONE (21:33)
[2023-01-30] MEDS ORDERED: ACETAMINOPHEN 325 MG TABLET (FP) PO PRN (22:02)
[2023-01-30] MEDS ORDERED: DOCUSATE SODIUM 100 MG CAPSULE (FP) PO PRN (22:02)
[2023-01-30 23:23] LABS: MAGNESIUM 2.2 mg/dL (1.8-2.4); PHOSPHOROUS 3.4 mg/dl (2.5-4.9)
[2023-01-31 00:30] LABS: POTASSIUM 3.2 mmol/L (3.5-5.1)
[2023-01-31 00:31] LABS: CALCIUM 9.5 mg/dL (8.5-10.1)
[2023-01-31 00:32] LABS: BLOOD UREA NITROGEN 23.5 mg/dL (7-18); MAGNESIUM 2.1 mg/dL (1.8-2.4)
[2023-01-31 00:35] LABS: CREATININE 1.5 mg/dL (0.55-1.3); PHOSPHOROUS 2.6 mg/dL (2.5-4.9)
[2023-01-31] MEDS ORDERED: POTASSIUM CHLORIDE ORAL LIQUID 20 MEQ/15 ML PO ONE (01:45)
[2023-01-31] MEDS ORDERED: ZOLPIDEM TARTRATE 5 MG TABLET PO PRN (02:39)
[2023-01-31] MEDS ORDERED: MELATONIN 5 MG TABLETS PO PRN (02:54)
[2023-01-31] MEDS ORDERED: ALBUTEROL SO4 HFA INHALER IH PRN (08:05)
[2023-01-31 08:14] LABS: INR 1.13 (0.83-1.09); PROTHROMBIN TIME (PATIENT) 13.1 SEC (9.7-13.0)
[2023-01-31 08:17] LABS: ACTIVATED PTT 29.7 SECONDS (25.2-36.5)
[2023-01-31 08:55] LABS: BASO % 0.5 % (0-2.0); EOS % 1.3 % (0-4.5); HEMATOCRIT 35.3 % (35.4-49); HEMOGLOBIN 11.8 GM/dL (11.7-16.9); LYMPH % 13.8 % (8-40); MCH 29.4 pg (25.7-33.7); MCHC 33.3 g/dl (32.0-35.9); MEAN CELL VOLUME 88.2 fl (80-96); MEAN PLT VOLUME 8.4 fl (7.5-11.1); MONO % 8.6 % (3.8-10.2); NEUT % 75.8 % (42.8-82.8); PLATELET COUNT 233 10^3/uL (134-434); RDW 16.4 % (11.9-15.9); WHITE BLOOD COUNT 8.8 K/mm3 (4.0-10.0)
[2023-01-31] MEDS: NIFEdipine E.R 60 MG TABLET PO SCH (09:28)
[2023-01-31 09:57] VITALS: RESP 19
[2023-01-31] MEDS ORDERED: POTASSIUM CHLORIDE TABS 20 MEQ TABLET.ER (FP) PO SCH (10:00)
[2023-01-31] MEDS ORDERED: HEPARIN NA (PORCINE) 5,000 UNITS/ML 1ML VIAL SQ SCH (10:00)
[2023-01-31] MEDS ORDERED: FINASTERIDE 5 MG TABLET (FP) PO SCH (10:00)
[2023-01-31] MEDS ORDERED: TORSEMIDE 20 MG TABLET (FP) PO SCH (10:00)
[2023-01-31] MEDS ORDERED: TORSEMIDE 20 MG TABLET (FP) PO ONE (10:00)
[2023-01-31] MEDS ORDERED: UMECLIDINIUM/VILANTEROL (ANORO) 62.5/25 MCG INHALER IH SCH (10:00)
[2023-01-31] MEDS ORDERED: MULTIVITAMINS (DAILY MVI) TABLET (FP) PO SCH (10:00)
[2023-01-31] MEDS ORDERED: FAMOTIDINE 20 MG TABLET PO SCH (10:00)
[2023-01-31] MEDS ORDERED: TAMSULOSIN HCL 0.4 MG CAP PO SCH (10:00)
[2023-01-31] MEDS ORDERED: LOSARTAN POTASSIUM 50 MG TABLET PO SCH (10:00)
[2023-01-31] MEDS ORDERED: CLOPIDOGREL BISULFATE 75 MG TABLET (FP) PO SCH (10:00)
[2023-01-31] MEDS ORDERED: amLODIPine BESYLATE 5 MG TABLET (FP) PO SCH (10:00)
[2023-01-31] MEDS ORDERED: GABAPENTIN 400 MG CAPSULE PO SCH (10:00)
[2023-01-31] MEDS ORDERED: CARVEDILOL 12.5 MG TABLET (FP) PO SCH (10:00)
[2023-01-31 14:11] VITALS: BP 146/59; PULSE 63; TEMP 97.7
[2023-01-31] MEDS ORDERED: ZOLPIDEM TARTRATE 5 MG TABLET PO SCH (22:00)
[2023-01-31] MEDS ORDERED: ATORVASTATIN CA 80 MG TABLET (FP) PO SCH (22:00)
== END 2023-01-31 15:36 | disposition home or self-care (01) ==
LOC: FER 15:16 → FM/S 21:46
PROVIDERS: ADMIT Internal Medicine; ATTEND Internal Medicine
PROC: 3E023GC Introduction of Other Therapeutic Substance into Muscle, Percutaneous Approach (ICD-10-PCS; principal; 2023-01-30)
PROC: 3E033GC Introduction of Other Therapeutic Substance into Peripheral Vein, Percutaneous Approach (ICD-10-PCS; 2023-01-30)
DX: I25.10 Atherosclerotic heart disease of native coronary artery without angina pectoris (principal); I11.9 Hypertensive heart disease without heart failure; Z95.1 Presence of aortocoronary bypass graft; M19.90 Unspecified osteoarthritis, unspecified site; J44.9 Chronic obstructive pulmonary disease, unspecified; K21.9 Gastro-esophageal reflux disease without esophagitis; N40.0 Benign prostatic hyperplasia without lower urinary tract symptoms; R60.0 Localized edema; Z88.0 Allergy status to penicillin; Z88.5 Allergy status to narcotic agent
CPT/HCPCS: 36415; 70450-TC; 71045-TC-FY; 80048; 80053; 81003; 81015; 83735; 84100; 84484; 85025; 85027; 85610; 85730; 87086; 93005; 96372; 96374; 97116-GP; 97162-GP; 99285-25; G0378; J1644

== ENCOUNTER 2023-04-18 09:07 | Day surgery (SDC) | payer OTHER, BC ==
[2023-04-11 10:30] VITALS: BMI 31.4
[2023-04-18] MEDS ORDERED: BSS (NA/CA/MG/K) BALANCED SALT SOLUTION OPHTH SOLN 15 ML BOTTLE ONE (09:12)
[2023-04-18] MEDS ORDERED: CARBACHOL 0.01% INTRA-OCULAR 1.5 ML VIAL ONE (09:12)
[2023-04-18] MEDS ORDERED: TETRACAINE 0.5% OPHTH SOLN 2 ML BOTTLE ONE (09:12)
[2023-04-18] MEDS ORDERED: LIDOCAINE 1% P/F 10 MG/ML VIAL ONE (09:12)
[2023-04-18] MEDS ORDERED: NEO/POLYMYX B SULF/DEXAMETH OPHTHALMIC 5ML BOTTLE ONE (09:12)
[2023-04-18] MEDS: CIPROFLOXACIN 0.3% EYE DROPS 5 ML BOTTLE ONE ×3 (10:00→10:10)
[2023-04-18] MEDS: CYCLOPENTOLATE 2% OPHTH SOLN 2 ML BOTTLE ONE ×3 (10:00→10:10)
[2023-04-18] MEDS: PHENYLEPHRINE 2.5% OPTHALMIC DROP 2ML BOTTLE ONE ×3 (10:00→10:10)
[2023-04-18] MEDS: TROPICAMIDE 1% OPHTH SOLN 15 ML BOTTLE ONE ×3 (10:00→10:10)
[2023-04-18] MEDS ORDERED: PHENYLEPHRINE/KETOROLAC 4 ML VIAL IO ONE (11:08)
[2023-04-18] MEDS ORDERED: MIDAZOLAM HCL 2 MG/2 ML SINGLE DOSE VIAL ONE (11:48)
[2023-04-18 12:26] VITALS: RESP 16; TEMP 98.1
[2023-04-18 12:36] VITALS: BP 174/86; PULSE 50
== END 2023-04-18 12:36 | disposition home or self-care (01) ==
LOC: FASU 09:07
PROVIDERS: ATTEND Ophthalmology
PROC: 08RK3JZ Replacement of Left Lens with Synthetic Substitute, Percutaneous Approach (ICD-10-PCS; principal; 2023-04-18 11:53)
DX: H26.8 Other specified cataract (principal)
CPT/HCPCS: 66984; V2632; 82962; J1097

== ENCOUNTER 2023-05-02 09:01 | Day surgery (SDC) | payer OTHER, BC ==
[2023-04-30 15:19] VITALS: BMI 31.4
[2023-05-02] MEDS: CIPROFLOXACIN HCL 0.3% OPHTH 2.5ML BOTTLE ONE ×3 (09:25→09:35)
[2023-05-02] MEDS: PHENYLEPHRINE 2.5% OPTHALMIC DROP 2ML BOTTLE ONE ×3 (09:25→09:35)
[2023-05-02] MEDS: CYCLOPENTOLATE 2% OPHTH SOLN 2 ML BOTTLE ONE ×3 (09:25→09:35)
[2023-05-02] MEDS: TROPICAMIDE 1% OPHTH SOLN 15 ML BOTTLE ONE ×3 (09:25→09:35)
[2023-05-02] MEDS ORDERED: TETRACAINE 0.5% OPHTH SOLN 2 ML BOTTLE ONE (09:40)
[2023-05-02] MEDS ORDERED: LIDOCAINE 1% P/F 10 MG/ML VIAL ONE (09:40)
[2023-05-02] MEDS ORDERED: BSS (NA/CA/MG/K) BALANCED SALT SOLUTION OPHTH SOLN 15 ML BOTTLE ONE (09:40)
[2023-05-02] MEDS ORDERED: NEO/POLYMYX B SULF/DEXAMETH OPHTHALMIC 5ML BOTTLE ONE (09:40)
[2023-05-02] MEDS ORDERED: CARBACHOL 0.01% INTRA-OCULAR 1.5 ML VIAL ONE (09:40)
[2023-05-02] MEDS ORDERED: MIDAZOLAM HCL 2 MG/2 ML SINGLE DOSE VIAL ONE (10:52)
[2023-05-02 11:41] VITALS: TEMP 98
[2023-05-02 11:52] VITALS: BP 120/40; PULSE 58; RESP 20
== END 2023-05-02 12:30 | disposition home or self-care (01) ==
LOC: FASU 09:01
PROVIDERS: ATTEND Ophthalmology
PROC: 08RJ3JZ Replacement of Right Lens with Synthetic Substitute, Percutaneous Approach (ICD-10-PCS; principal; 2023-05-02 11:17)
DX: H26.8 Other specified cataract (principal)
CPT/HCPCS: 66984; V2632; 82962

== ENCOUNTER 2023-12-03 07:35 | Inpatient (IN) | payer OTHER, BC ==
[2023-12-03 08:37] LABS: VENOUS BASE EXCESS 1.1 mmol/L (-2-2); VENOUS O2 SATURATION 63.5 % (70-80); VENOUS PCO2 42.6 mmHg (38-52); VENOUS PH 7.404 (7.310-7.410)
[2023-12-03 08:47] LABS: BASO % 0.5 % (0-2.0); HEMOGLOBIN 8.3 GM/dL (11.7-16.9); LYMPH % 10.9 % (8-40); MCH 29.8 pg (25.7-33.7); MCHC 32.1 g/dl (32.0-35.9); MEAN CELL VOLUME 92.7 fl (80-96); MEAN PLT VOLUME 7.8 fl (7.5-11.1); NEUT % 81.6 % (42.8-82.8); PLATELET COUNT 212 10^3/uL (134-434); RDW 16.3 % (11.9-15.9); WHITE BLOOD COUNT 11.3 K/mm3 (4.0-10.0)
[2023-12-03] MEDS ORDERED: methylPREDNISolone NA SUCC 40 MG/1 ML VIAL ONE (08:47)
[2023-12-03 09:09] LABS: POTASSIUM 3.8 mmol/L (3.5-5.1)
[2023-12-03 09:11] LABS: CALCIUM 9.1 mg/dL (8.5-10.1)
[2023-12-03 09:12] LABS: ALBUMIN 3.5 g/dl (3.4-5.0); BLOOD UREA NITROGEN 44.8 mg/dL (7-18); MAGNESIUM 2.7 mg/dL (1.8-2.4)
[2023-12-03 09:15] LABS: CREATININE 2.3 mg/dL (0.55-1.3)
[2023-12-03 09:16] LABS: BILIRUBIN,TOTAL 0.7 mg/dL (0.2-1); TOT PROT 7.1 g/dl (6.4-8.2)
[2023-12-03] MEDS: methylPREDNISolone NA SUCC 40 MG/1 ML VIAL IVPUSH ONE (09:17)
[2023-12-03] MEDS ORDERED: ALBUTEROL SO4 2.5/IPRATROPIUM 0.5 INH SOL 3 ML VIAL.NEB. NEB ONE ×2 (09:19→10:19)
[2023-12-03 09:20] LABS: N-TERMINAL BNP 8185.6 pg/ml (5-450)
[2023-12-03] MEDS: ALBUTEROL SO4 2.5/IPRATROPIUM 0.5 INH SOL 3 ML VIAL.NEB. NEB SCH ×2 (09:27→16:45)
[2023-12-03 09:37] LABS: ACTIVATED PTT 27.6 SECONDS (25.2-36.5); INR 1.09 (0.83-1.09); PROTHROMBIN TIME (PATIENT) 12.6 SEC (9.7-13.0)
[2023-12-03] MEDS ORDERED: FUROSEMIDE 40 MG/4 ML INJECTABLE VIAL ONE (10:43)
[2023-12-03] MEDS: FUROSEMIDE 40 MG/4 ML INJECTABLE VIAL IVPUSH ONE ×2 (11:04→15:45)
[2023-12-03 11:38] LABS: EPI CELLS 4 /uL (0-25.1); HYALINE CASTS 1 /uL (0-3.1); PH,URINE 5.5 (5.0-8.0); URINE APPEARANCE CLEAR; URINE BACTERIA 0 /uL (0-1359); URINE BILIRUBIN NEGATIVE (NEGATIVE); URINE COLOR YELLOW; URINE GLUCOSE (UA) NEGATIVE (NEGATIVE); URINE KETONE NEGATIVE (NEGATIVE); URINE LEUK ESTERASE NEGATIVE (NEGATIVE); URINE NITRITE NEGATIVE (NEGATIVE); URINE PROTEIN 1+ (NEGATIVE); URINE RBC 5 /uL (0-23.9); URINE UROBILINOGEN 0.2 mg/dL (0.2-1.0); URINE WBC 3 /uL (0-25.8)
[2023-12-03 15:42] VITALS: BMI 32.0
[2023-12-03] MEDS: NIFEdipine E.R. 30 MG TABLET PO SCH (16:24)
[2023-12-03] MEDS: methylPREDNISolone NA SUCC 40 MG/1 ML VIAL IVPUSH SCH (17:24)
[2023-12-03] MEDS: CARVEDILOL 25 MG TABLET (FP) PO SCH (22:20)
[2023-12-03] MEDS: ATORVASTATIN CA 80 MG TABLET (FP) PO SCH (22:20)
[2023-12-03] MEDS: INSULIN ASPART SLIDING SCALE (NOVOLOG) 1 VIAL SQ SCH (22:20)
[2023-12-03] MEDS ORDERED: LABETALOL HCL 5 MG/1 ML (100MG/20 ML VIAL) IVPUSH PRN (22:45)
[2023-12-03] MEDS: MELATONIN 5 MG TABLETS PO ONE (23:25)
[2023-12-03] MEDS: NIFEdipine E.R. 30 MG TABLET PO ONE (23:25)
[2023-12-03] MEDS: ACETAMINOPHEN 325 MG TABLET (FP) PO PRN (23:25)
[2023-12-04] MEDS: MELATONIN 5 MG TABLETS PO ONE (02:35)
[2023-12-04] MEDS ORDERED: INSULIN (NOVOLOG) ASPART 100 UNITS/ML 10ML VIAL ONE (06:12)
[2023-12-04 07:11] LABS: HEMATOCRIT 25.5 % (35.4-49); HEMOGLOBIN 8.5 GM/dL (11.7-16.9); MCH 30.5 pg (25.7-33.7); MCHC 33.2 g/dl (32.0-35.9); MEAN CELL VOLUME 91.8 fl (80-96); MEAN PLT VOLUME 7.9 fl (7.5-11.1); PLATELET COUNT 227 10^3/uL (134-434); RBC 2.77 M/mm3 (4.00-5.60); WHITE BLOOD COUNT 7.9 K/mm3 (4.0-10.0)
[2023-12-04 07:38] LABS: POTASSIUM 3.7 mmol/L (3.5-5.1)
[2023-12-04 07:42] LABS: ALBUMIN 3.4 g/dl (3.4-5.0); CALCIUM 8.9 mg/dL (8.5-10.1)
[2023-12-04 07:43] LABS: BLOOD UREA NITROGEN 47.9 mg/dL (7-18); MAGNESIUM 2.5 mg/dL (1.8-2.4)
[2023-12-04 07:46] LABS: CREATININE 2.4 mg/dL (0.55-1.3)
[2023-12-04 07:47] LABS: BILIRUBIN,TOTAL 0.6 mg/dL (0.2-1); TOT PROT 7.1 g/dl (6.4-8.2)
[2023-12-04] MEDS ORDERED: FUROSEMIDE 40 MG/4 ML INJECTABLE VIAL IVPUSH SCH (10:00)
[2023-12-04] MEDS: FUROSEMIDE 40 MG/4 ML INJECTABLE VIAL IVPUSH SCH (11:41)
[2023-12-04] MEDS: FAMOTIDINE 20 MG TABLET PO SCH (11:43)
[2023-12-04] MEDS: CLOPIDOGREL BISULFATE 75 MG TABLET (FP) PO SCH (11:55)
[2023-12-04] MEDS: PETROLATUM, WHITE 30 GM TUBE TP SCH (18:48)
[2023-12-04] MEDS: MELATONIN 5 MG TABLETS PO SCH (22:03)
[2023-12-04] MEDS ORDERED: NIFEdipine E.R. 30 MG TABLET PO ONE (22:44)
[2023-12-05 07:19] LABS: BASO % 0.2 % (0-2.0); HEMATOCRIT 24.9 % (35.4-49); HEMOGLOBIN 8.2 GM/dL (11.7-16.9); LYMPH % 6.8 % (8-40); MCH 30.1 pg (25.7-33.7); MCHC 32.8 g/dl (32.0-35.9); MEAN CELL VOLUME 91.9 fl (80-96); MONO % 3.6 % (3.8-10.2); NEUT % 89.4 % (42.8-82.8); PLATELET COUNT 238 10^3/uL (134-434); RBC 2.71 M/mm3 (4.00-5.60); RDW 16.3 % (11.9-15.9); WHITE BLOOD COUNT 9.3 K/mm3 (4.0-10.0)
[2023-12-05 07:22] LABS: POTASSIUM 3.6 mmol/L (3.5-5.1)
[2023-12-05 07:25] LABS: CALCIUM 9.5 mg/dL (8.5-10.1)
[2023-12-05 07:26] LABS: BLOOD UREA NITROGEN 55.3 mg/dL (7-18); MAGNESIUM 2.8 mg/dL (1.8-2.4)
[2023-12-05 07:29] LABS: CREATININE 2.2 mg/dL (0.55-1.3)
[2023-12-05] MEDS: UMECLIDINIUM/VILANTEROL (ANORO) 62.5/25 MCG INHALER IH SCH (11:25)
[2023-12-05] MEDS: methylPREDNISolone NA SUCC 40 MG/1 ML VIAL IVPUSH SCH (15:10)
[2023-12-05] MEDS: NIFEdipine E.R. 30 MG TABLET PO ONE ×2 (17:35)
[2023-12-05] MEDS: LACTOBACILLUS ACIDOPHILUS 1 TABLET PO SCH (22:14)
[2023-12-06 08:17] LABS: POTASSIUM 3.5 mmol/L (3.5-5.1)
[2023-12-06 08:19] LABS: BLOOD UREA NITROGEN 64.3 mg/dL (7-18); CALCIUM 9.4 mg/dL (8.5-10.1); MAGNESIUM 2.8 mg/dL (1.8-2.4)
[2023-12-06 08:20] LABS: ALBUMIN 3.3 g/dl (3.4-5.0)
[2023-12-06 08:21] LABS: HEMATOCRIT 25.4 % (35.4-49); HEMOGLOBIN 8.5 GM/dL (11.7-16.9); LYMPH % 8.1 % (8-40); MCH 30.3 pg (25.7-33.7); MCHC 33.5 g/dl (32.0-35.9); MEAN CELL VOLUME 90.5 fl (80-96); MEAN PLT VOLUME 7.9 fl (7.5-11.1); MONO % 6.2 % (3.8-10.2); NEUT % 85.7 % (42.8-82.8); PLATELET COUNT 246 10^3/uL (134-434); RBC 2.81 M/mm3 (4.00-5.60); RDW 16.2 % (11.9-15.9)
[2023-12-06 08:22] LABS: CREATININE 2.4 mg/dL (0.55-1.3)
[2023-12-06 08:24] LABS: BILIRUBIN,TOTAL 0.6 mg/dL (0.2-1); TOT PROT 6.6 g/dl (6.4-8.2)
[2023-12-06] MEDS: SODIUM CHLORIDE NASAL SPRAY 44 ML BOTTLE NS PRN (12:11)
[2023-12-06] MEDS ORDERED: INSULIN (NOVOLOG) ASPART 100 UNITS/ML 10ML VIAL ONE (21:36)
[2023-12-07 07:23] LABS: BASO % 0.1 % (0-2.0); HEMATOCRIT 27.4 % (35.4-49); HEMOGLOBIN 9.2 GM/dL (11.7-16.9); LYMPH % 7.4 % (8-40); MCH 30.3 pg (25.7-33.7); MCHC 33.5 g/dl (32.0-35.9); MEAN CELL VOLUME 90.5 fl (80-96); MEAN PLT VOLUME 7.6 fl (7.5-11.1); MONO % 8.1 % (3.8-10.2); NEUT % 84.4 % (42.8-82.8); PLATELET COUNT 264 10^3/uL (134-434); RBC 3.03 M/mm3 (4.00-5.60); RDW 16.3 % (11.9-15.9); WHITE BLOOD COUNT 10.5 K/mm3 (4.0-10.0)
[2023-12-07 07:30] LABS: CHLORIDE 111 mmol/L (98-107); SODIUM 147 mmol/L (136-145)
[2023-12-07 07:33] LABS: CALCIUM 9.2 mg/dL (8.5-10.1)
[2023-12-07 07:34] LABS: ALBUMIN 3.3 g/dl (3.4-5.0); BLOOD UREA NITROGEN 56.6 mg/dL (7-18); CO2 29 mmol/L (21-32); GLUCOSE,RANDOM 216 mg/dL (74-106); MAGNESIUM 2.6 mg/dL (1.8-2.4)
[2023-12-07 07:37] LABS: CREATININE 2.1 mg/dL (0.55-1.3); SGOT/AST 30 U/L (15-37); SGPT/ALT 49 U/L (13-61)
[2023-12-07 07:38] LABS: TOT PROT 6.5 g/dl (6.4-8.2)
[2023-12-07 07:39] LABS: BILIRUBIN,TOTAL 0.7 mg/dL (0.2-1)
[2023-12-07 07:40] LABS: ALK PHOS 68 U/L (45-117)
[2023-12-07 08:08] LABS: ANION GAP 6 mmol/L (4-13); POTASSIUM 2.9 mmol/L (3.5-5.1)
[2023-12-07] MEDS ORDERED: POTASSIUM CHLORIDE ORAL LIQUID 20 MEQ/15 ML PO ONE ×2 (08:10→12:00)
[2023-12-07] MEDS: POTASSIUM CHLORIDE ORAL LIQUID 20 MEQ/15 ML PO SCH (09:36)
[2023-12-07] MEDS: methylPREDNISolone NA SUCC 40 MG/1 ML VIAL IVPUSH SCH (09:37)
[2023-12-07] MEDS: NIFEdipine E.R 60 MG TABLET PO SCH (09:38)
[2023-12-07] MEDS ORDERED: POTASSIUM CHLORIDE TABS 20 MEQ TABLET.ER (FP) PO ONE (11:00)
[2023-12-07] MEDS ORDERED: INSULIN (NOVOLOG) ASPART 100 UNITS/ML 10ML VIAL ONE (11:48)
[2023-12-07] MEDS: POTASSIUM CHLORIDE ORAL LIQUID 20 MEQ/15 ML PO ONE (14:16)
[2023-12-07] MEDS: POTASSIUM CHLORIDE TABS 20 MEQ TABLET.ER (FP) PO ONE ×2 (15:20→16:20)
[2023-12-07 15:47] LABS: POTASSIUM 3.5 mmol/L (3.5-5.1)
[2023-12-07 15:49] LABS: ALBUMIN 3.5 g/dl (3.4-5.0); BLOOD UREA NITROGEN 55.3 mg/dL (7-18); CALCIUM 8.9 mg/dL (8.5-10.1)
[2023-12-07 15:52] LABS: CREATININE 2.3 mg/dL (0.55-1.3)
[2023-12-07 15:54] LABS: BILIRUBIN,TOTAL 0.7 mg/dL (0.2-1); TOT PROT 6.9 g/dl (6.4-8.2)
[2023-12-07 16:11] VITALS: BP 155/69; PULSE 69; RESP 18; TEMP 97.5
== END 2023-12-07 17:28 | disposition home or self-care (01) | DRG 280 ==
LOC: JER 07:35 → JERBED 13:41 → J4W 14:42
PROVIDERS: ADMIT Internal Medicine; ATTEND Internal Medicine
DX: I13.0 Hypertensive heart and chronic kidney disease with heart failure and stage 1 through stage 4 chronic kidney disease, or unspecified chronic kidney disease (principal); I50.33 Acute on chronic diastolic (congestive) heart failure; I21.A1 Myocardial infarction type 2; J18.9 Pneumonia, unspecified organism; J96.01 Acute respiratory failure with hypoxia; N17.9 Acute kidney failure, unspecified; E87.0 Hyperosmolality and hypernatremia; J44.1 Chronic obstructive pulmonary disease with (acute) exacerbation; I25.10 Atherosclerotic heart disease of native coronary artery without angina pectoris; E78.5 Hyperlipidemia, unspecified; K21.9 Gastro-esophageal reflux disease without esophagitis; N18.32 Chronic kidney disease, stage 3b; N40.0 Benign prostatic hyperplasia without lower urinary tract symptoms; J84.10 Pulmonary fibrosis, unspecified; G47.33 Obstructive sleep apnea (adult) (pediatric); E87.6 Hypokalemia; N28.1 Cyst of kidney, acquired; D64.9 Anemia, unspecified; R04.0 Epistaxis; I35.0 Nonrheumatic aortic (valve) stenosis
CPT/HCPCS: 0241U-QW; 36415; 71045-TC-FY; 71250-TC; 76775-TC; 80048; 80053; 81003; 82803; 82962; 83036; 83735; 83880; 84100; 84484; 85025; 85027; 85610; 85730; 86850; 86900; 86901; 93005; 93010; 93306-TC; 93308; 93970-TC; 94010; 94640; 94761; 97116-GP; 97161-GP; 99291

== ENCOUNTER 2023-12-09 06:44 | Emergency (ER) | payer OTHER, BC ==
[2023-12-09 06:54] VITALS: TEMP 98; BMI 30.1
[2023-12-09] MEDS ORDERED: TRANEXAMIC ACID 1000 MG/10 ML VIAL ONE ×2 (08:22→10:20)
[2023-12-09 08:30] LABS: INR 1.2 (0.83-1.09); PROTHROMBIN TIME (PATIENT) 13.9 SEC (9.7-13.0)
[2023-12-09] MEDS: TRANEXAMIC ACID 1000 MG/10 ML VIAL IVPUSH ONE ×2 (08:35→10:40)
[2023-12-09 08:42] LABS: BASO % 0.1 % (0-2.0); EOS % 0.4 % (0-4.5); HEMATOCRIT 29.2 % (35.4-49); HEMOGLOBIN 9.9 GM/dL (11.7-16.9); LYMPH % 9.1 % (8-40); MCH 30.6 pg (25.7-33.7); MCHC 33.8 g/dl (32.0-35.9); MEAN CELL VOLUME 90.5 fl (80-96); MEAN PLT VOLUME 7.9 fl (7.5-11.1); MONO % 7.2 % (3.8-10.2); NEUT % 83.2 % (42.8-82.8); PLATELET COUNT 238 10^3/uL (134-434); RBC 3.23 M/mm3 (4.00-5.60); RDW 16.3 % (11.9-15.9); WHITE BLOOD COUNT 11.6 K/mm3 (4.0-10.0)
[2023-12-09] MEDS ORDERED: LOSARTAN POTASSIUM 50 MG TABLET ONE (09:21)
[2023-12-09] MEDS: LOSARTAN POTASSIUM 50 MG TABLET PO ONE (09:25)
[2023-12-09 10:40] LABS: POTASSIUM 3.5 mmol/L (3.5-5.1)
[2023-12-09 10:43] LABS: BLOOD UREA NITROGEN 31.5 mg/dL (7-18); CALCIUM 8.5 mg/dL (8.5-10.1)
[2023-12-09 10:46] LABS: CREATININE 1.8 mg/dL (0.55-1.3)
[2023-12-09] MEDS ORDERED: NIFEdipine E.R 60 MG TABLET PO ONE (11:01)
[2023-12-09] MEDS: NIFEdipine E.R 60 MG TABLET PO ONE (11:04)
[2023-12-09 12:45] VITALS: BP 200/78; PULSE 84; RESP 18
== END 2023-12-09 14:04 | disposition home or self-care (01) ==
LOC: JER 06:44
PROC: 093K8ZZ Control Bleeding in Nasal Mucosa and Soft Tissue, Via Natural or Artificial Opening Endoscopic (ICD-10-PCS; principal; 2023-12-09)
PROC: 3E030GC Introduction of Other Therapeutic Substance into Peripheral Vein, Open Approach (ICD-10-PCS; 2023-12-09)
PROC: 3E030GC Introduction of Other Therapeutic Substance into Peripheral Vein, Open Approach (ICD-10-PCS; 2023-12-09)
DX: R04.0 Epistaxis (principal); R53.1 Weakness; R42 Dizziness and giddiness; I10 Essential (primary) hypertension
CPT/HCPCS: 36415; 80048; 85025; 85610; 85730; 86850; 86900; 86901; 99284-25

== ENCOUNTER 2023-12-11 02:25 | Emergency (ER) | payer OTHER, BC ==
[2023-12-11 02:29] VITALS: PULSE 74; RESP 20; TEMP 98.6; BMI 35.9
[2023-12-11] MEDS ORDERED: cloNIDine HCL 0.1 MG TABLET ONE (03:09)
[2023-12-11] MEDS: cloNIDine HCL 0.1 MG TABLET PO ONE (03:13)
[2023-12-11 05:23] VITALS: BP 166/55
== END 2023-12-11 05:23 | disposition home or self-care (01) ==
LOC: JER 02:25
DX: R04.0 Epistaxis (principal); I10 Essential (primary) hypertension
CPT/HCPCS: 99283-25

== ENCOUNTER 2024-01-20 09:42 | Inpatient (IN) | payer OTHER, BC ==
[2024-01-20] MEDS ORDERED: ALBUTEROL SO4 2.5/IPRATROPIUM 0.5 INH SOL 3 ML VIAL.NEB. NEB ONE (10:44)
[2024-01-20 10:49] LABS: HEMATOCRIT 30.3 % (35.4-49); HEMOGLOBIN 9.2 G/dL (11.7-16.9); MCH 28.5 pg (25.7-33.7); MCHC 30.4 g/dl (32.0-35.9); MEAN CELL VOLUME 93.7 fl (80-96); MEAN PLT VOLUME 8.5 fl (7.5-11.1); PLATELET COUNT 218.9 10^3/uL (134-434); RBC 3.23 10^6/uL (4.00-5.60); RDW 15.8 % (11.9-15.9); WHITE BLOOD COUNT 12.1 10^3/uL (4.0-10.8)
[2024-01-20] MEDS: ALBUTEROL SO4 2.5/IPRATROPIUM 0.5 INH SOL 3 ML VIAL.NEB. NEB SCH (10:55)
[2024-01-20 11:01] LABS: INR 1.09 (0.83-1.09); PROTHROMBIN TIME (PATIENT) 12.4 SEC (9.7-13.0)
[2024-01-20 11:04] LABS: ACTIVATED PTT 33.8 SECONDS (25.2-36.5)
[2024-01-20 11:08] LABS: ALBUMIN 4.1 g/dl (3.4-5.0); BILIRUBIN,TOTAL 0.8 mg/dl (0.2-1); CALCIUM 9.5 mg/dl (8.5-10.1); CREATININE 1.8 mg/dl (0.6-1.3); POTASSIUM 3.4 mmol/L (3.5-5.1)
[2024-01-20 11:21] LABS: PLATELET ESTIMATE ADEQUATE
[2024-01-20] MEDS ORDERED: FUROSEMIDE 40 MG/4 ML INJECTABLE VIAL ONE (11:30)
[2024-01-20] MEDS: FUROSEMIDE 40 MG/4 ML INJECTABLE VIAL IVPUSH ONE (11:35)
[2024-01-20] MEDS ORDERED: predniSONE 20 MG TABLET (UD) ONE (11:59)
[2024-01-20] MEDS: predniSONE 20 MG TABLET (UD) PO ONE (12:10)
[2024-01-20] MEDS ORDERED: AZITHROMYCIN 500 MG TABLET ONE (14:54)
[2024-01-20] MEDS: AZITHROMYCIN 250 MG TABLET PO ONE (15:10)
[2024-01-20] MEDS ORDERED: ALBUTEROL SO4 2.5/IPRATROPIUM 0.5 INH SOL 3 ML VIAL.NEB. NEB PRN (15:42)
[2024-01-20] MEDS: INSULIN ASPART SLIDING SCALE (NOVOLOG) 1 VIAL SQ SCH (17:05)
[2024-01-20] MEDS: ATORVASTATIN CA 80 MG TABLET (FP) PO SCH (21:34)
[2024-01-20] MEDS: CARVEDILOL 25 MG TABLET (FP) PO SCH (21:35)
[2024-01-20] MEDS: NIFEdipine E.R. 30 MG TABLET PO SCH (21:35)
[2024-01-20] MEDS: HEPARIN NA (PORCINE) 5,000 UNITS/ML 1ML VIAL SQ SCH (21:35)
[2024-01-20] MEDS: GABAPENTIN 300 MG CAPSULE PO SCH (21:56)
[2024-01-21] MEDS ORDERED: glipiZIDE-XL 10 MG TAB.ER.24 (FP) PO SCH (07:00)
[2024-01-21] MEDS ORDERED: glipiZIDE-XL 5 MG TAB.ER.24 PO SCH (07:15)
[2024-01-21] MEDS ORDERED: FUROSEMIDE 40 MG/4 ML INJECTABLE VIAL ONE (07:23)
[2024-01-21] MEDS: FUROSEMIDE 40 MG/4 ML INJECTABLE VIAL IVPUSH SCH (07:26)
[2024-01-21 08:59] LABS: ANION GAP 10 mmol/L (4-13); CALCIUM 9.4 mg/dl (8.5-10.1); CHLORIDE 109 mmol/L (98-107); CO2 28 mmol/L (21-32); CREATININE 1.8 mg/dl (0.6-1.3); GLUCOSE,RANDOM 169 mg/dl (74-106); MAGNESIUM 2.1 mg/dL (1.8-2.4); PHOSPHOROUS 3.3 (2.5-4.9); POTASSIUM 3.2 mmol/L (3.5-5.1); SODIUM 147 mmol/L (136-145)
[2024-01-21] MEDS: FINASTERIDE 5 MG TABLET (FP) PO SCH (09:51)
[2024-01-21] MEDS: TAMSULOSIN HCL 0.4 MG CAP PO SCH (09:51)
[2024-01-21] MEDS: NIFEdipine E.R. 30 MG TABLET PO SCH (09:51)
[2024-01-21] MEDS: CLOPIDOGREL BISULFATE 75 MG TABLET (FP) PO SCH (09:52)
[2024-01-21] MEDS: MULTIVITAMINS (DAILY MVI) TABLET (FP) PO SCH (09:52)
[2024-01-21] MEDS: predniSONE 20 MG TABLET (UD) PO SCH (09:52)
[2024-01-21] MEDS: AZITHROMYCIN IVPB 500 MG/250 ML BAG IVPB SCH (09:53)
[2024-01-21] MEDS: POLYETHYLENE GLYCOL (HEALTHYLAX) 3350 17 GM PACKET PO SCH (11:07)
[2024-01-21] MEDS: DOCUSATE NA 100 MG/10 ML UNIT-DOSE CUPS PO SCH (11:08)
[2024-01-21] MEDS: POTASSIUM CHLORIDE TABS 10 MEQ TABLET.ER (FP) PO SCH (11:09)
[2024-01-21] MEDS: SENNOSIDES 8.6MG TABLET (FP) PO SCH (11:09)
[2024-01-21] MEDS: FLUTICASONE/UMECLIDIN/VILANTER(100-62.5-25 TRELEGY ELLIPTA) INAHLER IH SCH (11:10)
[2024-01-21] MEDS: EMPAGLIFLOZIN (JARDIANCE) 25 MG TABLET PO SCH (11:14)
[2024-01-21 11:36] VITALS: BMI 36.4
[2024-01-22 08:51] LABS: ALBUMIN 3.9 g/dl (3.4-5.0); ALK PHOS 81 U/L (45-117); ANION GAP 10 mmol/L (4-13); BILIRUBIN,TOTAL 0.8 mg/dl (0.2-1); CALCIUM 9.3 mg/dl (8.5-10.1); CHLORIDE 108 mmol/L (98-107); CO2 30 mmol/L (21-32); GLUCOSE,RANDOM 140 mg/dl (74-106); POTASSIUM 3.1 mmol/L (3.5-5.1); SGOT/AST 10 U/L (15-37); SGPT/ALT 12 U/L (7-52); SODIUM 148 mmol/L (136-145); TOT PROT 6.8 g/dl (6.4-8.2)
[2024-01-22 10:04] LABS: BASO % 0.2 % (0-2.0); HEMATOCRIT 29.4 % (35.4-49); HEMOGLOBIN 9.7 GM/dL (11.7-16.9); LYMPH % 11.4 % (8-40); MEAN PLT VOLUME 7.6 fl (7.5-11.1); MONO % 8.8 % (3.8-10.2); NEUT % 79.6 % (42.8-82.8); PLATELET COUNT 268 10^3/uL (134-434); RBC 3.23 M/mm3 (4.00-5.60); RDW 16.8 % (11.9-15.9); WHITE BLOOD COUNT 8.5 K/mm3 (4.0-10.0)
[2024-01-22] MEDS: POTASSIUM CHLORIDE ORAL LIQUID 20 MEQ/15 ML PO ONE (15:30)
[2024-01-23] MEDS: ACETAMINOPHEN 325 MG TABLET (FP) PO PRN (23:00)
[2024-01-24 09:59] LABS: ALBUMIN 3.8 g/dl (3.4-5.0); ALK PHOS 78 U/L (45-117); ANION GAP 11 mmol/L (4-13); BILIRUBIN,TOTAL 0.8 mg/dl (0.2-1); CALCIUM 9.5 mg/dl (8.5-10.1); CHLORIDE 108 mmol/L (98-107); CO2 30 mmol/L (21-32); CREATININE 1.7 mg/dl (0.6-1.3); GLUCOSE,RANDOM 146 mg/dl (74-106); POTASSIUM 3.4 mmol/L (3.5-5.1); SGOT/AST 18 U/L (15-37); SGPT/ALT 25 U/L (7-52); SODIUM 149 mmol/L (136-145); TOT PROT 6.7 g/dl (6.4-8.2)
[2024-01-24 10:17] LABS: BASO % 0.1 % (0-2.0); EOS % 0.1 % (0-4.5); HEMATOCRIT 30.3 % (35.4-49); HEMOGLOBIN 9.9 GM/dL (11.7-16.9); LYMPH % 12.3 % (8-40); MCH 29.3 pg (25.7-33.7); MCHC 32.5 g/dl (32.0-35.9); MEAN CELL VOLUME 90.1 fl (80-96); MEAN PLT VOLUME 7.3 fl (7.5-11.1); MONO % 8.7 % (3.8-10.2); NEUT % 78.8 % (42.8-82.8); PLATELET COUNT 266 10^3/uL (134-434); RBC 3.37 M/mm3 (4.00-5.60); RDW 16.4 % (11.9-15.9); WHITE BLOOD COUNT 8.2 K/mm3 (4.0-10.0)
[2024-01-24] MEDS: FUROSEMIDE 40 MG/4 ML INJECTABLE VIAL IVPUSH SCH (13:30)
[2024-01-24] MEDS: NIFEdipine E.R. 30 MG TABLET PO ONE (14:44)
[2024-01-24 22:25] VITALS: RESP 20
[2024-01-25 06:32] VITALS: BP 170/64; PULSE 68; TEMP 97.6
[2024-01-25 08:52] LABS: ALBUMIN 3.8 g/dl (3.4-5.0); ALK PHOS 72 U/L (45-117); ANION GAP 9 mmol/L (4-13); BILIRUBIN,TOTAL 0.8 mg/dl (0.2-1); CALCIUM 9.4 mg/dl (8.5-10.1); CHLORIDE 107 mmol/L (98-107); CO2 31 mmol/L (21-32); CREATININE 1.6 mg/dl (0.6-1.3); GLUCOSE,RANDOM 165 mg/dl (74-106); POTASSIUM 3.1 mmol/L (3.5-5.1); SGOT/AST 18 U/L (15-37); SGPT/ALT 27 U/L (7-52); SODIUM 147 mmol/L (136-145); TOT PROT 6.6 g/dl (6.4-8.2)
[2024-01-25 10:07] LABS: BASO % 0.1 % (0-2.0); EOS % 0.1 % (0-4.5); HEMATOCRIT 29.6 % (35.4-49); HEMOGLOBIN 9.9 GM/dL (11.7-16.9); LYMPH % 13.5 % (8-40); MCH 29.6 pg (25.7-33.7); MCHC 33.3 g/dl (32.0-35.9); MEAN CELL VOLUME 88.8 fl (80-96); MEAN PLT VOLUME 7.2 fl (7.5-11.1); MONO % 7.7 % (3.8-10.2); NEUT % 78.6 % (42.8-82.8); PLATELET COUNT 261 10^3/uL (134-434); RBC 3.34 M/mm3 (4.00-5.60); RDW 16.5 % (11.9-15.9); WHITE BLOOD COUNT 8.3 K/mm3 (4.0-10.0)
== END 2024-01-25 09:22 | DRG 291 ==
LOC: FER 09:42 → FM/S 15:02
PROVIDERS: ADMIT Internal Medicine
DX: I13.0 Hypertensive heart and chronic kidney disease with heart failure and stage 1 through stage 4 chronic kidney disease, or unspecified chronic kidney disease (principal); I50.33 Acute on chronic diastolic (congestive) heart failure; J96.21 Acute and chronic respiratory failure with hypoxia; J96.22 Acute and chronic respiratory failure with hypercapnia; J18.9 Pneumonia, unspecified organism; J44.1 Chronic obstructive pulmonary disease with (acute) exacerbation; N17.9 Acute kidney failure, unspecified; J44.0 Chronic obstructive pulmonary disease with (acute) lower respiratory infection; N40.0 Benign prostatic hyperplasia without lower urinary tract symptoms; D50.9 Iron deficiency anemia, unspecified; I25.10 Atherosclerotic heart disease of native coronary artery without angina pectoris; E03.9 Hypothyroidism, unspecified; Z95.5 Presence of coronary angioplasty implant and graft; I34.1 Nonrheumatic mitral (valve) prolapse; E66.9 Obesity, unspecified; Z68.30 Body mass index [BMI] 30.0-30.9, adult; E78.5 Hyperlipidemia, unspecified; G47.33 Obstructive sleep apnea (adult) (pediatric); E11.42 Type 2 diabetes mellitus with diabetic polyneuropathy; M54.16 Radiculopathy, lumbar region; K21.9 Gastro-esophageal reflux disease without esophagitis; M54.50 Low back pain, unspecified; E11.22 Type 2 diabetes mellitus with diabetic chronic kidney disease; N18.9 Chronic kidney disease, unspecified; N28.1 Cyst of kidney, acquired
CPT/HCPCS: 0241U-QW; 36415; 71045-TC-FY; 71046-TC-FY; 80048; 80053; 81003; 81015; 82962; 83735; 83880; 84100; 84484; 85025; 85610; 85730; 86850; 86900; 86901; 87086; 93005; 97116-GP; 97162-GP; 99285-25; J1644

== ENCOUNTER 2024-02-16 09:51 | Inpatient (IN) | payer OTHER, BC ==
[2024-02-16] MEDS ORDERED: FUROSEMIDE 40 MG/4 ML INJECTABLE VIAL ONE (10:27)
[2024-02-16] MEDS: FUROSEMIDE 40 MG/4 ML INJECTABLE VIAL IVPUSH ONE (10:30)
[2024-02-16 10:31] VITALS: BMI 32.1
[2024-02-16 10:34] LABS: BASO % 0.2 % (0-2.0); HEMATOCRIT 30.1 % (35.4-49); HEMOGLOBIN 10.1 GM/dL (11.7-16.9); MCH 29.9 pg (25.7-33.7); MCHC 33.5 g/dl (32.0-35.9); MEAN CELL VOLUME 89.3 fl (80-96); MEAN PLT VOLUME 7.6 fl (7.5-11.1); MONO % 5.5 % (3.8-10.2); NEUT % 89.3 % (42.8-82.8); PLATELET COUNT 183 10^3/uL (134-434); RBC 3.37 M/mm3 (4.00-5.60); RDW 18.7 % (11.9-15.9); WHITE BLOOD COUNT 15.5 K/mm3 (4.0-10.0)
[2024-02-16 10:40] LABS: VENOUS BASE EXCESS 0.6 mmol/L (-2-2); VENOUS O2 SATURATION 91.5 % (70-80); VENOUS PCO2 44.1 mmHg (38-52); VENOUS PH 7.385 (7.310-7.410)
[2024-02-16] MEDS ORDERED: VANCOMYCIN 2,000 MG in DEXTROSE 5%-WATER - 500 ML IVPB ONE (10:44)
[2024-02-16] MEDS ORDERED: MEROPENEM 1 GM VIAL (RESTRICTED TO ID) IVPB ONE (11:00)
[2024-02-16 11:01] LABS: CHLORIDE 106 mmol/L (98-107); SODIUM 134 mmol/L (136-145)
[2024-02-16 11:03] LABS: ALBUMIN 2.9 g/dl (3.4-5.0); BLOOD UREA NITROGEN 22.1 mg/dL (7-18); CALCIUM 8.3 mg/dL (8.5-10.1); CO2 27 mmol/L (21-32); GLUCOSE,RANDOM 167 mg/dL (74-106)
[2024-02-16] MEDS: MEROPENEM 1 GM in DEXTROSE 5%-WATER 100 ML IVPB ONE (11:05)
[2024-02-16 11:06] LABS: CREATININE 1.5 mg/dL (0.55-1.3)
[2024-02-16 11:09] LABS: ALK PHOS 95 U/L (45-117)
[2024-02-16 11:11] LABS: N-TERMINAL BNP 5287.2 pg/ml (5-450)
[2024-02-16 11:55] LABS: ANION GAP 2 mmol/L (4-13); POTASSIUM > 10.0 mmol/L (3.5-5.1); SGOT/AST 237 U/L (15-37); SGPT/ALT 40 U/L (13-61)
[2024-02-16] MEDS: VANCOMYCIN/WATER 2 GRAMS 2,000 MG/400 ML PIGGYBACK IVPB ONE (12:38)
[2024-02-16] MEDS ORDERED: ALBUTEROL SO4 HFA INHALER IH PRN (13:30)
[2024-02-16 13:31] LABS: POTASSIUM 3.7 mmol/L (3.5-5.1)
[2024-02-16 13:33] LABS: BLOOD UREA NITROGEN 21.6 mg/dL (7-18)
[2024-02-16 13:36] LABS: CREATININE 1.5 mg/dL (0.55-1.3)
[2024-02-16] MEDS ORDERED: ATORVASTATIN CA 80 MG TABLET (FP) ONE (21:57)
[2024-02-16] MEDS ORDERED: NIFEdipine E.R. 30 MG TABLET PO ONE (21:57)
[2024-02-16] MEDS ORDERED: GABAPENTIN 300 MG CAPSULE ONE (21:57)
[2024-02-16] MEDS ORDERED: CARVEDILOL 25 MG TABLET (FP) ONE (21:58)
[2024-02-16] MEDS: CARVEDILOL 25 MG TABLET (FP) PO SCH (22:11)
[2024-02-16] MEDS: NIFEdipine E.R. 30 MG TABLET PO SCH (22:11)
[2024-02-16] MEDS: ATORVASTATIN CA 80 MG TABLET (FP) PO SCH (22:11)
[2024-02-16] MEDS: GABAPENTIN 300 MG CAPSULE PO SCH (22:11)
[2024-02-17] MEDS: glipiZIDE-XL 5 MG TAB.ER.24 PO SCH (07:39)
[2024-02-17 08:38] LABS: BASO % 0.1 % (0-2.0); HEMATOCRIT 27.9 % (35.4-49); HEMOGLOBIN 9.5 GM/dL (11.7-16.9); LYMPH % 8.6 % (8-40); MCH 30.5 pg (25.7-33.7); MCHC 33.9 g/dl (32.0-35.9); MEAN CELL VOLUME 89.9 fl (80-96); MEAN PLT VOLUME 7.5 fl (7.5-11.1); MONO % 7.6 % (3.8-10.2); NEUT % 83.7 % (42.8-82.8); PLATELET COUNT 177 10^3/uL (134-434); RDW 18.3 % (11.9-15.9); WHITE BLOOD COUNT 10.4 K/mm3 (4.0-10.0)
[2024-02-17 08:53] LABS: POTASSIUM 3.4 mmol/L (3.5-5.1)
[2024-02-17 08:55] LABS: CALCIUM 8.6 mg/dL (8.5-10.1)
[2024-02-17 08:56] LABS: ALBUMIN 2.8 g/dl (3.4-5.0); BLOOD UREA NITROGEN 22.6 mg/dL (7-18)
[2024-02-17 08:59] LABS: CREATININE 1.6 mg/dL (0.55-1.3)
[2024-02-17] MEDS ORDERED: TAMSULOSIN HCL 0.4 MG CAP ONE (08:59)
[2024-02-17 09:00] LABS: BILIRUBIN,TOTAL 0.8 mg/dL (0.2-1); TOT PROT 6.4 g/dl (6.4-8.2)
[2024-02-17] MEDS: TAMSULOSIN HCL 0.4 MG CAP PO SCH (09:10)
[2024-02-17] MEDS ORDERED: CARVEDILOL 25 MG TABLET (FP) ONE (10:11)
[2024-02-17] MEDS: ERTAPENEM SODIUM 0.5 GM in SODIUM CHLORIDE 50 ML IVPB SCH (10:43)
[2024-02-17] MEDS ORDERED: NIFEdipine E.R. 30 MG TABLET PO ONE (10:46)
[2024-02-17] MEDS ORDERED: CLOPIDOGREL BISULFATE 75 MG TABLET (FP) ONE (10:46)
[2024-02-17] MEDS ORDERED: GABAPENTIN 300 MG CAPSULE ONE (10:46)
[2024-02-17] MEDS: CLOPIDOGREL BISULFATE 75 MG TABLET (FP) PO SCH (10:48)
[2024-02-17] MEDS: FINASTERIDE 5 MG TABLET (FP) PO SCH (10:48)
[2024-02-17] MEDS: FUROSEMIDE 40 MG/4 ML INJECTABLE VIAL IVPUSH SCH (11:40)
[2024-02-17] MEDS: FLUTICASONE/UMECLIDIN/VILANTER(100-62.5-25 TRELEGY ELLIPTA) INAHLER IH SCH (13:05)
[2024-02-18] MEDS: ACETAMINOPHEN 325 MG TABLET (FP) PO PRN (02:00)
[2024-02-18] MEDS: glipiZIDE-XL 10 MG TAB.ER.24 (FP) PO SCH (07:06)
[2024-02-19 11:54] LABS: BASO % 0.2 % (0-2.0); EOS % 1.5 % (0-4.5); HEMATOCRIT 27.2 % (35.4-49); HEMOGLOBIN 8.9 GM/dL (11.7-16.9); LYMPH % 10.8 % (8-40); MCH 29.4 pg (25.7-33.7); MCHC 32.9 g/dl (32.0-35.9); MEAN CELL VOLUME 89.5 fl (80-96); MEAN PLT VOLUME 7.5 fl (7.5-11.1); MONO % 8.7 % (3.8-10.2); NEUT % 78.8 % (42.8-82.8); PLATELET COUNT 231 10^3/uL (134-434); RBC 3.04 M/mm3 (4.00-5.60); RDW 17.5 % (11.9-15.9); WHITE BLOOD COUNT 7.5 K/mm3 (4.0-10.0)
[2024-02-19 12:23] LABS: POTASSIUM 3.2 mmol/L (3.5-5.1)
[2024-02-19 12:32] LABS: ALBUMIN 2.7 g/dl (3.4-5.0); BLOOD UREA NITROGEN 32.4 mg/dL (7-18); CALCIUM 8.6 mg/dL (8.5-10.1)
[2024-02-19 12:35] LABS: CREATININE 1.5 mg/dL (0.55-1.3)
[2024-02-19 12:36] LABS: TOT PROT 6.6 g/dl (6.4-8.2)
[2024-02-19 12:37] LABS: BILIRUBIN,TOTAL 0.5 mg/dL (0.2-1)
[2024-02-19] MEDS: LOSARTAN POTASSIUM 50 MG TABLET PO SCH (19:05)
[2024-02-20] MEDS ORDERED: NIFEdipine E.R. 30 MG TABLET PO SCH (18:01)
[2024-02-20] MEDS: NIFEdipine E.R. 30 MG TABLET PO SCH (21:34)
[2024-02-22 14:50] VITALS: BP 153/53; PULSE 59; RESP 22; TEMP 97.7
== END 2024-02-22 17:20 | DRG 291 ==
LOC: JER 09:51 → JERBED 11:46 → J4W 02-17 17:41
PROVIDERS: ADMIT Internal Medicine; ATTEND Internal Medicine
DX: I13.0 Hypertensive heart and chronic kidney disease with heart failure and stage 1 through stage 4 chronic kidney disease, or unspecified chronic kidney disease (principal); I50.33 Acute on chronic diastolic (congestive) heart failure; J18.9 Pneumonia, unspecified organism; D50.9 Iron deficiency anemia, unspecified; E11.22 Type 2 diabetes mellitus with diabetic chronic kidney disease; N18.32 Chronic kidney disease, stage 3b; N40.0 Benign prostatic hyperplasia without lower urinary tract symptoms; I34.1 Nonrheumatic mitral (valve) prolapse; I25.10 Atherosclerotic heart disease of native coronary artery without angina pectoris; E78.5 Hyperlipidemia, unspecified; E87.6 Hypokalemia; J44.9 Chronic obstructive pulmonary disease, unspecified; E11.42 Type 2 diabetes mellitus with diabetic polyneuropathy; M54.16 Radiculopathy, lumbar region; R60.0 Localized edema; G47.33 Obstructive sleep apnea (adult) (pediatric); Z95.5 Presence of coronary angioplasty implant and graft; E66.9 Obesity, unspecified; Z68.32 Body mass index [BMI] 32.0-32.9, adult
CPT/HCPCS: 0241U-QW; 36415; 71045-TC-FY; 80048; 80053; 82803; 82962; 83605; 83735; 83880; 84484; 85025; 93005; 93010; 94660; 97116-GP; 97162-GP; 99285-25